=== PATIENT | female | born 1955 | race Caucasian/White ===

== ENCOUNTER 2018-08-05 12:35 | Inpatient (IN) | payer MEDICARE, OTHER ==
[~2018-08-05] VITALS: Ht 157.5 cm; Wt 72.2 kg
[~2018-08-05 12:35] MED LIST: ALLO100T PO; AMLO1CAP12 PO; AMOX1TAB11 PO; ASPI-482 PO; ATOR40TA59 PO; BENA20TA4 PO; CARV3.1210 PO; INSU100I13 SQ; INSU100I15 SQ; LEVO150T5 PO; LEVO25TA4 PO; LIRA0.6P2 SQ; LISI-130 PO; METF500T16 PO; METO25TA4 PO; MULT1TAB52 PO; PRAM0.255 PO; SODI650T PO; SPIR50TA4 PO; TORS20TA2 PO
[2018-08-05] MEDS ORDERED: LEVO200T5 PO (13:17)
[2018-08-05] MEDS ORDERED: AMLO1CAP10 PO (13:17)
[2018-08-05] MEDS ORDERED: CIPR250T30 PO (13:17)
[2018-08-05] MEDS ORDERED: METO25TA4 PO (13:17)
[2018-08-05] MEDS ORDERED: METF500T16 PO (13:17)
[2018-08-05] MEDS ORDERED: LIDO700A39 TP (13:17)
[2018-08-05] MEDS ORDERED: PREG150C PO (13:17)
[2018-08-05] MEDS ORDERED: SALI44.32 MM (13:17)
[2018-08-05] MEDS ORDERED: SULF1TAB24 PO (13:17)
[2018-08-05] MEDS ORDERED: METO5TAB4 PO (13:17)
[2018-08-05] MEDS ORDERED: INSU200I4 SQ (13:17)
[2018-08-05] MEDS ORDERED: LISI-130 PO (13:17)
[2018-08-05] MEDS ORDERED: LEVO25TA4 PO (13:17)
--- NOTE | 2018-08-05 13:26 | NUR ---
Wound care: Patient sent from the wound clinic to hospital today for admission. Patient seen in the clinic today. Due to X-ray results, assessment of wound, TCOM and ASAF results, patient requiring admission for further assessment. In the clinic the wound was cleansed, assessed, measured, and pictured. Dr. Muhammad assessed patient and wound. Orders for Iodoflex to wound bed, cover with ABD, and kerlix. Dressing applied and patient tolerated well. Patient assisted to ER via wheelchair. Dr. Muhammad spoke with Dr. Pino and warehouse guard for admission. Wound care will follow up with patient for POC regarding wound. Patient to have vascular and ID consult and further testing. Dressing change instructions will be left in room and photo will be placed in chart by wound care team. Wound care will see patient on floor.
[2018-08-05] MEDS ORDERED: PIP/TAZO PER PHARMACY MC PRN (13:45)
--- NOTE | 2018-08-05 13:49 | PDOC1 ---
History and Physical Date of Admission Date of Admission 08/05/18 Identification/Chief Complaint Chief Complaint right 1st toe ulcer Source Source: Patient History of Present Illness History of Present Illness She got up to go to the bathroom a few nights ago and noticed blood on the floor and noticed it was coming from her right first toenail, she had an appt with med in the office 08/03 and had a partially avulsed toenail with foulsmelling purulent drainage coming from under it. She was started on antibiotics, placed non weight bearing and sent for an Xray and wound care consult. The Xray revealed a tuft fracture and showed a vascular calcification of her anterior tibial artery but she has a strong palpable pulse. She is diabetic with peripheral neuropathy. She has been wearing crocs recently without socks. She denies any trauma to her foot. Her blood sugars have been well controlled. She has previously had a MA, CABG and CKD Past Medical History Cardiovascular: CAD, CHF, HTN Pulmonary: No pertinent hx GI: No pertinent hx Heme/Onc: No pertinent hx Hepatobiliary: No pertinent hx Psych: No pertinent hx Rheumatologic: No pertinent hx Infectious disease: No pertinent hx Renal/: Chronic renal insuff Endocrine: Diabetes, Hypothyroidism Past Surgical History Past Surgical History: CABG, Other Family History Family History: Alcohol Abuse, Heart Disease, Kidney Disease Social History ALCOHOL: none Drugs: None Current Medications Current Medications Current Medications Medications (Trade) Dose Ordered Sig/Michelle Start Time Stop Time Status Last Admin Dose Admin Aspirin (Ecotrin) 81 mg DAILY 08/06/18 09:00 UNV Atorvastatin Calcium (Lipitor) 40 mg HS 08/05/18 21:00 UNV Carvedilol (Coreg) 3.125 mg BID 08/05/18 21:00 UNV Lisinopril (Prinivil) 40 mg DAILY 08/06/18 09:00 UNV Metoprolol Tartrate (Lopressor) 12.5 mg BID 08/05/18 21:00 UNV Non-Formulary Medication (Amlodipine Besylate/ Benazepril (Amlodipine-Benazepril 5-20 Mg)) 1 cap DAILY 08/06/18 09:00 UNV Non-Formulary Medication (Insulin Degludec (Tresiba Flextouch U-200)) 20 unit DAILY 08/06/18 09:00 UNV Non-Formulary Medication (Levothyroxine Sodium ) 200 mcg DAILYAC 08/06/18 07:30 UNV Non-Formulary Medication (Liraglutide (Victoza 3-Yaniv)) 1.8 mg DAILY 08/06/18 09:00 UNV Non-Formulary Medication (Metolazone ) 5 mg DAILY 08/06/18 09:00 UNV Non-Formulary Medication (Multivitamin (Multivitamins)) 1 tab DAILY 08/06/18 09:00 UNV Non-Formulary Medication (Pramipexole Di-Hcl (Mirapex)) 1 tab DAILY 08/06/18 09:00 UNV Non-Formulary Medication (Pregabalin (Lyrica)) 150 mg BID 08/05/18 21:00 UNV Non-Formulary Medication (Saliva Stimulant Agents Comb.2 (Biotene Oralbalance)) 44.3 ml BID 08/05/18 21:00 UNV Sodium Bicarbonate (Sodium Bicarbonate) 650 mg TID 08/05/18 14:00 UNV Allergies Allergies Allergies Coded Allergies Type Severity Reaction Last Updated Verified acetaminophen Allergy Intermediate 07/29/18 Yes propoxyphene Allergy Intermediate 07/29/18 Yes ROS Review of System CONSTITUTIONAL: No fever or chills EYES: No recent changes SKIN: No rash or itching CARDIOVASCULAR: No chest pain, syncope, palpitations, or edema RESPIRATORY: No SOB or cough GASTROINTESTINAL: No nausea, vomiting or abdominal pain NEUROLOGICAL: No headaches or weakness ENDOCRINE: No cold or heat intolerance GENITOURINARY: No urgency or frequency of urination MUSCULOSKELETAL: No back pain or joint pain LYMPHATICS: No enlarged lymph nodes PSYCHIATRIC: No anxiety or depression Physical Exam Physical Exam GEN.: No apparent distress. Alert and oriented. HEENT: Head is normocephalic, atraumatic NECK: Supple. LUNGS: Clear to auscultation. HEART: RRR, S1, S2 present. Peripheral pulses intact ABDOMEN: Soft, nontender. Positive bowel sounds. EXTREMITIES: Without any cyanosis, right foot dressed but 1st toenail partially avulsed, erythema and edema of soft tissue present. NEUROLOGIC: Normal speech, normal tone, loss of sensation of feet PSYCHIATRIC: Normal affect, normal mood. SKIN: No other ulcerations VTE Prophylaxis Ordered VTE Prophylaxis Devices: Yes VTE Pharmacological Prophylaxi: No Assessment/Plan Assessment/Plan osteomyelitis of right 1st toe, exposed bone PAD CAD, s/p CABG CKD Admitted for IV antibiotics, ID and vascular and wound care consults Nicolás HAMM MD Aug 05, 2018 13:49
[2018-08-05 14:09] LABS: BASO # 0.1 x10^3/uL (0.0-0.2); BASO % 1 % (0-3); EOS # 0.2 x10^3/uL (0.0-0.7); EOS % 3 % (0-3); HEMATOCRIT 32.1 % (36.0-47.0); HEMOGLOBIN 10.5 g/dL (12.0-15.5); LYMPH # 1.1 x10^3/uL (1.0-4.8); LYMPH % 17 % (24-48); MEAN CORPUSCULAR HEMOGLOBIN 26 pg (25-35); MEAN CORPUSCULAR HGB CONC 33 g/dL (31-37); MEAN CORPUSCULAR VOLUME 79 fL (79-100); MONO # 0.5 x10^3/uL (0.0-1.1); MONO % 8 % (0-9); NEUT # 4.6 x10^3uL (1.8-7.7); NEUT % 72 % (31-73); PLATELET COUNT 296 x10^3/uL (140-400); RED BLOOD COUNT 4.05 x10^6/uL (3.50-5.40); RED CELL DISTRIBUTION WIDTH 14.7 % (11.5-14.5); WHITE BLOOD COUNT 6.4 x10^3/uL (4.0-11.0)
[2018-08-05 14:25] LABS: GFR 25.2; POTASSIUM 4.7 mmol/L (3.5-5.1)
[2018-08-05] MEDS: PRAMIPEXOLE 0.25 MG TABLET. PO SCH (14:28)
[2018-08-05] MEDS: ASPIRIN ENTERIC COATED 81 MG TABLET.DR. PO SCH (14:28)
[2018-08-05] MEDS: MULTIVITAMIN with MINERAL TABLET. PO SCH (14:29)
[2018-08-05] MEDS: LEVOTHYROXINE 25 MCG TABLET. PO SCH (14:29)
[2018-08-05] MEDS: LEVOTHYROXINE 100 MCG TABLET PO SCH (14:29)
[2018-08-05] MEDS: amLODIPine BESYLATE 5 MG TABLET PO SCH (14:29)
--- NOTE | 2018-08-05 14:41 | PDOC ---
Provider Note Provider Note Vascular Surgery Consult dictated 63 year old female with left leg peripheral artery disease and left 1st toe gangrene, exposed bone and cellulitis. Plan left leg angiogram with IR. Nephrology consulted for pre-hydration in prep for angiogram. Will need left 1st toe amputation (scheduled on friday). ID consulted for antibiotics. CARMEN WILL MD Aug 05, 2018 14:41
[2018-08-05 15:00] VITALS: BP 175/63
[2018-08-05] MEDS ORDERED: metOLazone 2.5 MG TABLET PO SCH (15:00)
[2018-08-05] MEDS ORDERED: LISINOPRIL 20 MG TABLET PO SCH (15:00)
[2018-08-05] MEDS ORDERED: INSULIN GLARGINE 300 UNITS/3 ML INSULN.PEN. SQ SCH (15:00)
[2018-08-05] MEDS: IV NORMAL SALINE 1000ML BAG 1,000 ML IV SCH (15:01)
[2018-08-05] MEDS: SODIUM BICARBONATE 650 MG TABLET. PO SCH ×2 (15:01→20:52)
[2018-08-05] MEDS: PIPERACILLIN/TAZOBACTAM 3.375 GM in IV NORMAL SALINE 50ML 50 ML IV SCH ×2 (15:01→17:57)
[2018-08-05 15:36] LABS: PROTHROMBIN TIME PATIENT 13.9 SEC (11.7-14.0)
--- NOTE | 2018-08-05 16:48 | RAD ---
Bilateral lower extremity arterial duplex 08/05/2018 INDICATION: Peripheral arterial disease. Hypertension and diabetes mellitus. COMPARISON: None available TECHNIQUE: Sonographic evaluation of left lower extremity arterial system was performed utilizing grayscale, color Doppler and spectral waveform analysis. FINDINGS: Calcified atheromatous plaque is identified throughout the left lower extremity. Systolic velocities are provided below in centimeters per second. Left: Common femoral artery: 145; biphasic Profunda artery: 59; biphasic Superficial femoral artery, proximal: 147; biphasic Superficial femoral artery, mid: 148; biphasic Superficial femoral artery, distal: 147; monophasic Popliteal artery: 303; monophasic Anterior tibial artery: 26; monophasic Posterior tibial artery, proximal: 38; monophasic Peroneal artery: 47; monophasic Dorsalis pedis artery: 59; monophasic Anterior tibial artery: 73; monophasic IMPRESSION: Moderate to advanced peripheral arterial disease with predominantly monophasic waveforms involving the left lower extremity. Focal increase in peak systolic velocity involving the popliteal artery may suggest moderate to high-grade proximal stenosis. Electronically signed by: Chasidy Eastman MD (08/05/2018 4:45 PM) [id number]
--- NOTE | 2018-08-05 16:59 | PDOC2 ---
CONSULT Date of Consult Date of Consult DATE: 08/05/18 TIME: 16:41 Reason for Consult Reason for Consult: Clearance for Aortagram Source Source: Chart review, Patient History of Present Illness Reason for Visit: Pt is a 63 yo CF with Dx of CKD stage 3 , states she got up to go to the bathroom a few nights ago and noticed blood on the floor and noticed it was coming from her right first toenail, she had an appt with PCP 08/03 and had a partially avulsed toenail with foul smelling purulent drainage . She was started on antibiotics, and sent for an Xray and wound care consult. The Xray revealed a tuft fracture and showed a vascular calcification of her anterior tibial artery . She is diabetic with peripheral neuropathy. She follows with Dr. Merida and was recently seen by [facility] . She denies any N/V/D. No Urinary complaints. Denies NSAID use Past Medical History Cardiovascular: CAD, CHF, HTN Pulmonary: No pertinent hx GI: No pertinent hx Heme/Onc: No pertinent hx Hepatobiliary: No pertinent hx Psych: No pertinent hx Rheumatologic: No pertinent hx Infectious disease: No pertinent hx Renal/: Chronic renal insuff Endocrine: Diabetes, Hypothyroidism Past Surgical History Past Surgical History: CABG, Other Family History Family History: Alcohol Abuse, Heart Disease, Kidney Disease Social History ALCOHOL: none Drugs: None Current Medications Current Medications Current Medications Aspirin (Ecotrin) 81 mg DAILY PO ; Start 08/05/18 at 15:00 Atorvastatin Calcium (Lipitor) 40 mg HS PO ; Start 08/05/18 at 21:00 Carvedilol (Coreg) 3.125 mg BIDWMEALS PO ; Start 08/05/18 at 17:00; Status UNV Lisinopril (Prinivil) 40 mg DAILY PO ; Start 08/05/18 at 15:00 Metoprolol Tartrate (Lopressor) 12.5 mg BID PO ; Start 08/05/18 at 21:00 Sodium Bicarbonate (Sodium Bicarbonate) 650 mg TID PO Last administered on 08/05at 15:01; Admin Dose 650 MG; Start 08/05/18 at 15:00 Non-Formulary Medication (Amlodipine Besylate/ Benazepril (Amlodipine- Benazepril 5-20 Mg)) 1 cap DAILY PO ; Start 08/06/18 at 09:00; Status UNV Insulin Glargine (Lantus) 20 units DAILY SQ ; Start 08/05/18 at 15:00; Stop 02/13 at 15:00; Status DC Levothyroxine Sodium (Synthroid) 25 mcg DAILY06 PO ; Start 08/05/18 at 15:00 Levothyroxine Sodium (Synthroid) 200 mcg DAILY06 PO ; Start 08/05/18 at 15:00 Non-Formulary Medication (Liraglutide (Victoza 3-Yanvi)) 1.8 mg DAILY SQ ; Start 08/06/18 at 09:00; Status UNV Metolazone (Zaroxolyn) 5 mg DAILY PO ; Start 08/05/18 at 15:00 Multivitamins (Thera M Plus) 1 tab DAILY PO ; Start 08/05/18 at 15:00 Pramipexole Dihydrochloride (miraPEX) 0.25 mg DAILY PO ; Start 08/05/18 at 15:00 Pregabalin (Lyrica) 150 mg BID PO ; Start 08/05/18 at 21:00 Saliva Substitute (Biotene Moisturizing Mouth) 1 spray BID PO ; Start 08/05/18 at 21:00 Piperacillin Sod/ Tazobactam Sod (Zosyn Per Pharmacy) 1 each PRN DAILY PRN MC SEE COMMENTS; Start 08/05/18 at 13:45 Piperacillin Sod/ Tazobactam Sod 3.375 gm/Sodium Chloride 50 ml @ 100 mls/hr Q6HRS IV Last administered on 08/05/18at 15:01; Admin Dose 100 MLS/HR; Start 02/13 at 14:30 Amlodipine Besylate (Norvasc) 5 mg DAILY PO ; Start 08/05/18 at 15:00 Insulin Glargine (Lantus) 20 units HS SQ ; Start 08/05/18 at 21:00 Sodium Chloride 1,000 ml @ 75 mls/hr [id number] IV Last administered on at 15:01; Admin Dose 75 MLS/HR; Start 08/05/18 at 15:00 Active Scripts Active Reported Cipro (Ciprofloxacin Hcl) 250 Mg Tablet 250 Mg PO BID 7 Days Bactrim Ds Tablet (Sulfamethoxazole/Trimethoprim) 1 Each Tablet 1 Each PO BID Lidocaine 1 Each Adh..patch 1 Each TP DAILY Levothyroxine Sodium 25 Mcg Tablet 25 Mcg PO DAILYAC Levothyroxine Sodium 200 Mcg Tablet 200 Mcg PO DAILYAC Metolazone 5 Mg Tablet 5 Mg PO DAILY Biotene Oralbalance (Saliva Stimulant Agents Comb.2) 44.3 Ml Liquid 44.3 Ml MM BID Tresiba Flextouch U-200 (Insulin Degludec) 200 Unit/1 Ml Insuln.pen 20 Unit SQ DAILY Metoprolol Tartrate 25 Mg Tablet 12.5 Mg PO BID Lisinopril 40 Mg Tablet 40 Mg PO DAILY Metformin Hcl 500 Mg Tablet 500 Mg PO DAILYWBKFT Lyrica (Pregabalin) 150 Mg Capsule 150 Mg PO BID 30 Days Amlodipine-Benazepril 5-20 Mg (Amlodipine Besylate/Benazepril) 1 Each Capsule 1 Cap PO DAILY Sodium Bicarbonate 650 Mg Tablet 650 Mg PO TID Mirapex (Pramipexole Di-Hcl) 0.25 Mg Tablet 1 Tab PO DAILY Multivitamins (Multivitamin) 1 Each Tablet 1 Tab PO DAILY Victoza 3-Yaniv (Liraglutide) 0.6 Mg/0.1 Ml Pen.injctr 1.8 Mg SQ DAILY Carvedilol (Carvedilol) 3.125 Mg Tablet 1 Tab PO BID Aspir 81 (Aspirin) 81 Mg Tablet.dr 81 Mg PO Atorvastatin Calcium 40 Mg Tablet 40 Mg PO HS Allergies Allergies: Coded Allergies: acetaminophen (Verified Allergy, Intermediate, 07/29/18) propoxyphene (Verified Allergy, Intermediate, 07/29/18) ROS Review of System As per HPI Physical Exam Physical Exam GEN.: No apparent distress. HEENT: OM moist NECK: Supple. LUNGS: Clear to auscultation. HEART: RRR, S1, S2 present. ABDOMEN: Soft, nontender. EXTREMITIES: right foot dressed, erythema and edema of soft tissue present NEUROLOGIC: Grossly normal SKIN: No Rash - No Menjivar Vital Signs Vital Signs Date Time Temp Pulse Resp B/P (MAP) Pulse Ox O2 Delivery O2 Flow Rate FiO2 08/05/18 15:00 98.5 68 18 175/63 (100) 96 Room Air 98.5 Assessment & Plan CKD stage 3 - Stable renal function E-Lytes stable Discussed Risk of YESSY with patient Recommend IVF , Hold Diuretics, LE-I/ARB Lt Peripheral artery disease and left 1st toe gangrene Left exposed bone and cellulitis Vascular recommends left leg angiogram with IR Left 1st toe amputation scheduled on friday ID consulted for antibiotics. CAD s/p CABG Anemia- Hgb stable DM - On insulin Discussed A/P with Pt and RN Labs Labs Laboratory Tests Test 08/05/18 14:00 White Blood Count 6.4 x10^3/uL (4.0-11.0) Red Blood Count 4.05 x10^6/uL (3.50-5.40) Hemoglobin 10.5 g/dL (12.0-15.5) Hematocrit 32.1 % (36.0-47.0) Mean Corpuscular Volume 79 fL (79-100) Mean Corpuscular Hemoglobin 26 pg (25-35) Mean Corpuscular Hemoglobin Concent 33 g/dL (31-37) Red Cell Distribution Width 14.7 % (11.5-14.5) Platelet Count 296 x10^3/uL (140-400) Neutrophils (%) (Auto) 72 % (31-73) Lymphocytes (%) (Auto) 17 % (24-48) Monocytes (%) (Auto) 8 % (0-9) Eosinophils (%) (Auto) 3 % (0-3) Basophils (%) (Auto) 1 % (0-3) Neutrophils # (Auto) 4.6 x10^3uL (1.8-7.7) Lymphocytes # (Auto) 1.1 x10^3/uL (1.0-4.8) Monocytes # (Auto) 0.5 x10^3/uL (0.0-1.1) Eosinophils # (Auto) 0.2 x10^3/uL (0.0-0.7) Basophils # (Auto) 0.1 x10^3/uL (0.0-0.2) Erythrocyte Sedimentation Rate 50 (0-25) Prothrombin Time 13.9 SEC (11.7-14.0) Prothromb Time International Ratio 1.1 (0.8-1.1) Sodium Level 138 mmol/L (136-145) Potassium Level 4.7 mmol/L (3.5-5.1) Chloride Level 104 mmol/L (98-107) Carbon Dioxide Level 26 mmol/L (21-32) Anion Gap 8 (6-14) Blood Urea Nitrogen 27 mg/dL (7-20) Creatinine 2.0 mg/dL (0.6-1.0) Estimated GFR (Cockcroft-Gault) 25.2 Glucose Level 127 mg/dL (70-99) Calcium Level 9.0 mg/dL (8.5-10.1) Laboratory Tests Test 08/05/18 14:00 White Blood Count 6.4 x10^3/uL (4.0-11.0) Red Blood Count 4.05 x10^6/uL (3.50-5.40) Hemoglobin 10.5 g/dL (12.0-15.5) Hematocrit 32.1 % (36.0-47.0) Mean Corpuscular Volume 79 fL (79-100) Mean Corpuscular Hemoglobin 26 pg (25-35) Mean Corpuscular Hemoglobin Concent 33 g/dL (31-37) Red Cell Distribution Width 14.7 % (11.5-14.5) Platelet Count 296 x10^3/uL (140-400) Neutrophils (%) (Auto) 72 % (31-73) Lymphocytes (%) (Auto) 17 % (24-48) Monocytes (%) (Auto) 8 % (0-9) Eosinophils (%) (Auto) 3 % (0-3) Basophils (%) (Auto) 1 % (0-3) Neutrophils # (Auto) 4.6 x10^3uL (1.8-7.7) Lymphocytes # (Auto) 1.1 x10^3/uL (1.0-4.8) Monocytes # (Auto) 0.5 x10^3/uL (0.0-1.1) Eosinophils # (Auto) 0.2 x10^3/uL (0.0-0.7) Basophils # (Auto) 0.1 x10^3/uL (0.0-0.2) Erythrocyte Sedimentation Rate 50 (0-25) Prothrombin Time 13.9 SEC (11.7-14.0) Prothromb Time International Ratio 1.1 (0.8-1.1) Sodium Level 138 mmol/L (136-145) Potassium Level 4.7 mmol/L (3.5-5.1) Chloride Level 104 mmol/L (98-107) Carbon Dioxide Level 26 mmol/L (21-32) Anion Gap 8 (6-14) Blood Urea Nitrogen 27 mg/dL (7-20) Creatinine 2.0 mg/dL (0.6-1.0) Estimated GFR (Cockcroft-Gault) 25.2 Glucose Level 127 mg/dL (70-99) Calcium Level 9.0 mg/dL (8.5-10.1) Review All relevant outside records, renal labs, imaging studies, telemetry/EKG's were reviewed. DAVID BOWMAN MD Aug 05, 2018 16:59
[2018-08-05] MEDS ORDERED: CARVEDILOL 3.125 MG TABLET. PO SCH (17:00)
--- NOTE | 2018-08-05 17:08 | RAD ---
Clinical Indications: Peripheral arterial disease. Exam : Carotid Duplex with Grayscale Ultrasound and Spectral and Color Doppler Analysis: PQRS Compliance Statement - Stenosis calculations for CT, MR and conventional angiography are based upon measurement of the distal ICA diameter in accordance with the NASCET methodology. Stenosis calculations for carotid ultrasound studies are derived from validated velocity criteria which are known to correlate with the NASCET methodology. Comparison study: None available. Findings: The common, internal and external carotid arteries were examined by grayscale, color and spectral Doppler ultrasound. Moderate to severe atherosclerotic calcifications identified in the bilateral carotid bulbs and proximal internal carotid arteries. Flow in both vertebral arteries was antegrade and normal. The following are the velocities and ratios in the carotid arteries on both sides: RIGHT ICA PV: 129cm/sec RIGHT CCA PV: 93cm/sec RIGHT ICA ED: 35cm/sec RIGHT IC/CCPV: 1.3 RIGHT VERTEBRAL: antegrade flow RIGHT % STENOSIS: 50-69% LEFT ICA PV: 139cm/sec LEFT CCA PV: 83cm/sec LEFT ICA ED: 39cm/sec LEFT IC/CCPV: 1.5 LEFT VERTEBRAL: antegrade flow LEFT % STENOSIS: 50-69% <50% ICA Stenosis: PSV < 125cm/s (EDV < 40cm/s; SVR < 2.0) 50-69% ICA Stenosis: PSV < 125-229cm/s (EDV 40-99cm/s; SVR 2.0-3.9) >70% ICA Stenosis: PSV > 230cm/s (EDV >100cm/s; SVR >4.0) Impression: 1. 50-69% stenosis identified in the bilateral proximal internal carotid arteries. 2. Moderate to severe atherosclerotic calcifications identified in the bilateral carotid bulbs and proximal internal carotid arteries. Electronically signed by: Madhu Harden MD (08/05/2018 5:06 PM) [id number]
--- NOTE | 2018-08-05 17:20 | NUR ---
Spoke to DR. Paredes who requested patient have fluids running at 75ml/hr and that her lisinopril and metolazone be held for a couple of days. Patient already had a IV fluid order and I changed start dates on Metolazone and Lisinopril.
[2018-08-05] MEDS ORDERED: ACETAMINOPHEN 325 MG TABLET. PO PRN ×2 (18:30)
[2018-08-05 19:00] VITALS: BP 115/58
[2018-08-05] MEDS: ATORVASTATIN CALCIUM 40 MG TABLET. PO SCH (20:52)
[2018-08-05] MEDS: PREGABALIN 75 MG CAPSULE PO SCH (20:52)
[2018-08-05] MEDS: METOPROLOL TART IMMED RELEASE 25 MG TABLET. PO SCH (20:54)
[2018-08-05] MEDS: ACETAMINOPHEN 325 MG TABLET. PO PRN (20:57)
[2018-08-05] MEDS: INSULIN GLARGINE 300 UNITS/3 ML INSULN.PEN. SQ SCH (20:58)
[2018-08-05] MEDS: SALIVA STIMULANT AGENT 44ML SPRAY BOTTLE. PO SCH (21:01)
[2018-08-05 23:00] VITALS: BP 169/42
[2018-08-06] VITALS (12 sets, daily range): BP systolic 112–185; BP diastolic 41–76
[2018-08-06] MEDS: PIPERACILLIN/TAZOBACTAM 3.375 GM in IV NORMAL SALINE 50ML 50 ML IV SCH ×5 (00:27→23:42)
[2018-08-06 03:10] LABS: HEMOGLOBIN A1C 10.9 % (4.8-5.6)
--- NOTE | 2018-08-06 03:43 | CONS ---
DATE OF CONSULTATION: 08/05/2018 CHIEF COMPLAINT: Left first toe infected wound. HISTORY OF PRESENT ILLNESS: The patient is a 63-year-old female who little over a week ago somehow tripped and stubbed her left great toe while in the bathroom. She states the toe was becoming red and there has been swelling of her foot and ankle since this injury. [facility] visit today and the nailbed had lifted there and there is exposed bone in the wound along with extensive cellulitis. She was sent to the hospital and admitted by the medical physicians. She reports normally no pain in her feet. She does have significant neuropathy. She reports no significant pain now, but she does not have much feeling at baseline in her feet. She is able to ambulate independently and reports no pain or cramps in her calves during ambulation. She has had no fevers or chills. She does have a history of diabetes mellitus. She has a history of coronary artery disease and has undergone a coronary artery bypass graft many years ago. She reports no chest pain. She does follow with Dr. Shukla, her raiser helper at [facility]. She reports no interventions performed on her legs in the past. REVIEW OF SYSTEMS: A 10-point review of systems was performed, which was otherwise negative besides what is mentioned in history of present illness. PAST MEDICAL HISTORY: Includes: 1. Coronary artery disease. 2. Congestive heart failure. 3. Hypertension. 4. Chronic renal insufficiency for which she follows with Dr. Merida and has never been on dialysis in the past. 5. Diabetes mellitus. 6. Hypothyroidism. PAST SURGICAL HISTORY: 1. Coronary artery bypass graft. 2. Gastric bypass for weight loss. SOCIAL HISTORY: The patient does not drink alcohol. Reports not smoking. FAMILY HISTORY: Significant for heart disease and kidney disease. PHYSICAL EXAMINATION: GENERAL: The patient is awake and alert. She is currently in no apparent distress. VITAL SIGNS: Stable. NECK: Supple with no carotid bruits. HEART: Regular rate and rhythm without murmurs. LUNGS: Have bilateral breath sounds to auscultation. ABDOMEN: Soft, nondistended, and nontender. She does have healed scars from her gastric bypass. EXTREMITIES: Her left lower extremity is warm. She does have [id number] swelling of her left lower leg and foot. There is erythema of her left first toe extending into the foot. She has open wound on her distal left first toe with raised nail bed and exposed bone. There is wet gangrenous tissue within the wound bed. There are no other areas of tissue breakdown. Her right lower extremity is warm. No edema in her right leg. There is no tissue breakdown in her right foot. VASCULAR: I do not palpate pulses in her right or left foot. She does have palpable femoral pulses. NEUROLOGIC: She is awake and alert, oriented x 3, moving all 4 extremities with normal strength. No gross neurologic deficits. LABORATORY DATA: In review of her old chart at [facility], she was noted to have arterial ASAF testing in 2018 with a left leg ASAF of 0.74 and a right leg ASAF of 0.91. IMPRESSION: 1. Left lower extremity peripheral arterial disease with left first toe gangrene and exposed bone. 2. Left foot cellulitis. 3. Chronic renal insufficiency. 4. Diabetes mellitus. PLAN: The patient has significant left leg peripheral arterial disease by history and nonpalpable pulses on examination. In 12/2017, her left leg ASAF was 0.7. She has developed gangrene of her left first toe with exposure of her bone after an injury to her foot. She has associated infection and cellulitis. I recommend evaluating her circulation with an arterial duplex scan followed by an angiogram of her left leg with possible intervention. She does have chronic renal insufficiency. Therefore, she will be hydrated prior to the angiogram and Nephrology will be consulted. I did discuss her case with Dr. Basurto with Interventional Radiology and hopefully will be able to proceed with the angiogram tomorrow. She will need amputation of her left first toe. Ideally, we will get her angiogram and revascularization done prior to the amputation; however, if her infections worsens, we may need to do amputation first. She will be started on IV antibiotics and Infectious Disease has been consulted. CARMEN WILL MD DR: YONY/breezy JOB#: [id number] / [id number]
[2018-08-06] MEDS: IV NORMAL SALINE 1000ML BAG 1,000 ML IV SCH ×2 (04:20→14:16)
[2018-08-06] MEDS: LEVOTHYROXINE 100 MCG TABLET PO SCH (06:00)
[2018-08-06] MEDS: LEVOTHYROXINE 25 MCG TABLET. PO SCH (06:00)
[2018-08-06 06:10] LABS: CALCIUM 8.6 mg/dL (8.5-10.1); CREATININE 2.1 mg/dL (0.6-1.0); GFR 23.8; POTASSIUM 4.3 mmol/L (3.5-5.1)
[2018-08-06 06:15] LABS: RED BLOOD COUNT 3.8 x10^6/uL (3.50-5.40); RED CELL DISTRIBUTION WIDTH 14.5 % (11.5-14.5); WHITE BLOOD COUNT 6.8 x10^3/uL (4.0-11.0)
[2018-08-06 06:17] LABS: CHOLESTEROL/HDL RATIO 3.8
[2018-08-06 06:39] LABS: PROTHROMBIN TIME PATIENT 14.5 SEC (11.7-14.0)
[2018-08-06] MEDS ORDERED: BENAZEPRIL PO SCH (09:00)
[2018-08-06] MEDS ORDERED: [UNRECOGNIZED DRUG - OTHER] PO SCH (09:00)
[2018-08-06] MEDS: amLODIPine BESYLATE 5 MG TABLET PO SCH (09:00)
[2018-08-06] MEDS: SALIVA STIMULANT AGENT 44ML SPRAY BOTTLE. PO SCH ×2 (09:00→17:13)
[2018-08-06] MEDS: MULTIVITAMIN with MINERAL TABLET. PO SCH (09:00)
[2018-08-06] MEDS: PREGABALIN 75 MG CAPSULE PO SCH ×2 (09:00→20:41)
[2018-08-06] MEDS: METOPROLOL TART IMMED RELEASE 25 MG TABLET. PO SCH ×2 (09:00→20:43)
[2018-08-06] MEDS: PRAMIPEXOLE 0.25 MG TABLET. PO SCH (09:00)
[2018-08-06] MEDS: ASPIRIN ENTERIC COATED 81 MG TABLET.DR. PO SCH (09:00)
[2018-08-06] MEDS ORDERED: AMLODIPINE BESYLATE PO SCH (09:00)
[2018-08-06] MEDS ORDERED: NON FORMULARY ITEM (Liraglutide (Victoza 3-Pak) 1.8 MG) SQ SCH (09:00)
[2018-08-06] MEDS: SODIUM BICARBONATE 650 MG TABLET. PO SCH ×3 (09:00→20:41)
--- NOTE | 2018-08-06 09:56 | PDOC ---
Provider Note Provider Note S: We are evaluating patient for left great toe wound she has had for approx 2 weeks. She does not have associated pain, has noticed minimal drainage. Has associated redness and warmth extending up foot. She was seen by Dr. Griggs yesterday who recommended arteriogram today and toe amputation tomorrow. Pt resting in bed comfortably. Without complaints today. She was receiving pre- angiography fluids today. Patient has history of CAD, HTN, CHF, CKD not on dialysis, DM and hypothyroidism. History of CABG O: VSS, afebrile General: Alert, oriented and in no apparent distress. Lungs: Respirations non-labored Cardio: RRR, palpable radial pulses GI: Abdomen soft, nontender Extremities: Left foot is warm, mild edema lower leg and foot. There is necrotic wound to distal tip of left great toe with exposed bone. There is wet gangrenous tissue in wound bed and it is malodorous. Erythema extending to first MTP joint. No other foot wound noted. I cannot appreciate palpable pedal pulses.Right foot warm, no skin breakdown or erythema. Cannot appreciate palpable pedal pulses. Palpable femoral pulses bilaterally. Neuro: No gross deficits, full motor function and sensation bilateral feet. ROM intact throughout Upper and lower extremities Diagnostics: Most recent ASAF in 2018 at [facility] - left leg 0.74, right leg 0.91 Arterial duplex: Moderate to advanced disease with predominantly monophasic waveforms. Focal increase in PSV involving the popliteal artery may suggest moderate to high-grade proximal stenosis. Carotid Duplex: Mild disease, around 50% bilaterally Assessment/Plan: 1. Left lower extremity peripheral arterial disease with gangrenous left toe wound with exposed bone and cellulitis - Pt is going for arteriogram with possible intervention today. We will plan for left great toe amputation tomorrow. The details of the procedures were discussed with the patient including risks/benefits, she exhibited understanding and agreed to proceed. All her questions were answered to satisfaction. 2. Carotid stenosis - Mild disease, around 50% bilaterally. We will follow outpatient. 3. DM - per primary 5. Chronic renal insufficiency - per nephrology YOMAIRA MARROQUIN Aug 06, 2018 09:56
--- NOTE | 2018-08-06 10:02 | PDOC ---
Infectious Disease Note Vital Sign Vital Signs Vital Signs Date Time Temp Pulse Resp B/P (MAP) Pulse Ox O2 Delivery O2 Flow Rate FiO2 08/06/18 07:00 98.5 56 20 170/61 (97) 90 Room Air 98.5 Labs Lab Laboratory Tests Test 08/05/18 14:00 08/05/18 16:44 08/05/18 20:49 08/06/18 05:09 White Blood Count 6.4 x10^3/uL (4.0-11.0) 6.8 x10^3/uL (4.0-11.0) Red Blood Count 4.05 x10^6/uL (3.50-5.40) 3.80 x10^6/uL (3.50-5.40) Hemoglobin 10.5 g/dL (12.0-15.5) 10.0 g/dL (12.0-15.5) Hematocrit 32.1 % (36.0-47.0) 30.0 % (36.0-47.0) Mean Corpuscular Volume 79 fL (79-100) 79 fL (79-100) Mean Corpuscular Hemoglobin 26 pg (25-35) 26 pg (25-35) Mean Corpuscular Hemoglobin Concent 33 g/dL (31-37) 33 g/dL (31-37) Red Cell Distribution Width 14.7 % (11.5-14.5) 14.5 % (11.5-14.5) Platelet Count 296 x10^3/uL (140-400) 285 x10^3/uL (140-400) Neutrophils (%) (Auto) 72 % (31-73) Lymphocytes (%) (Auto) 17 % (24-48) Monocytes (%) (Auto) 8 % (0-9) Eosinophils (%) (Auto) 3 % (0-3) Basophils (%) (Auto) 1 % (0-3) Neutrophils # (Auto) 4.6 x10^3uL (1.8-7.7) Lymphocytes # (Auto) 1.1 x10^3/uL (1.0-4.8) Monocytes # (Auto) 0.5 x10^3/uL (0.0-1.1) Eosinophils # (Auto) 0.2 x10^3/uL (0.0-0.7) Basophils # (Auto) 0.1 x10^3/uL (0.0-0.2) Erythrocyte Sedimentation Rate 50 (0-25) Prothrombin Time 13.9 SEC (11.7-14.0) 14.5 SEC (11.7-14.0) Prothromb Time International Ratio 1.1 (0.8-1.1) 1.2 (0.8-1.1) Sodium Level 138 mmol/L (136-145) 143 mmol/L (136-145) Potassium Level 4.7 mmol/L (3.5-5.1) 4.3 mmol/L (3.5-5.1) Chloride Level 104 mmol/L (98-107) 108 mmol/L (98-107) Carbon Dioxide Level 26 mmol/L (21-32) 25 mmol/L (21-32) Anion Gap 8 (6-14) 10 (6-14) Blood Urea Nitrogen 27 mg/dL (7-20) 29 mg/dL (7-20) Creatinine 2.0 mg/dL (0.6-1.0) 2.1 mg/dL (0.6-1.0) Estimated GFR (Cockcroft-Gault) 25.2 23.8 Glucose Level 127 mg/dL (70-99) 67 mg/dL (70-99) Hemoglobin A1c 10.9 % (4.8-5.6) Calcium Level 9.0 mg/dL (8.5-10.1) 8.6 mg/dL (8.5-10.1) Glucose (Fingerstick) 250 mg/dL (70-99) 288 mg/dL (70-99) Triglycerides Level 76 mg/dL (0-150) Cholesterol Level 111 mg/dL (0-200) LDL Cholesterol, Calculated 67 mg/dL (0-100) VLDL Cholesterol, Calculated 15 mg/dL (0-40) Non-HDL Cholesterol Calculated 82 mg/dL (0-129) HDL Cholesterol 29 mg/dL (40-60) Cholesterol/HDL Ratio 3.8 Test 08/06/18 05:25 08/06/18 07:14 Glucose (Fingerstick) 72 mg/dL (70-99) 72 mg/dL (70-99) Objective Assessment Left big toe gangrene Left big toe and foot cellulitis PAD CAD Renal insufficiency DM HTN Plan Plan of Care zosyn angio will need I and D/amputation d/w Vascular surgery d/w family STEVE AGUILAR MD Aug 06, 2018 10:02
[2018-08-06] MEDS ORDERED: DEXTROSE 50% 25 GM / 50ML DISP.SYRIN. IV ONE ×2 (11:29→11:45)
--- NOTE | 2018-08-06 12:16 | PDOC ---
SUBJECTIVE ROS States feeling Hungry, still waiting for IR procedure OBJECTIVE Vital Signs Vital Signs Date Time Temp Pulse Resp B/P (MAP) Pulse Ox O2 Delivery O2 Flow Rate FiO2 08/06/18 11:00 98.7 50 20 182/59 (100) 94 Room Air 98.7 I & 0 Intake and Output 08/06/18 07:00 Intake Total 400 ml Output Total 0 ml Balance 400 ml Intake Oral 300 ml IV Total 100 ml Output Urine Total 0 ml # Voids 1 PHYSICAL EXAM Physical Exam GEN.: No apparent distress. HEENT: OM moist NECK: Supple. LUNGS: Clear to auscultation. HEART: RRR, S1, S2 present. ABDOMEN: Soft, nontender. EXTREMITIES: right foot dressed, erythema and edema of soft tissue present NEUROLOGIC: Grossly normal SKIN: No Rash - No Menjivar DIAGNOSIS/ASSESSMENT Assessment & Plan CKD stage 3 - Stable renal function E-Lytes stable Discussed Risk of YESSY at great length with patient and family at bedside Continue IVF(Pre Procedure) , during and at lest 12 hrs Post procedure , Hold Diuretics, LE-I/ARB Lt Peripheral artery disease and left 1st toe gangrene Left exposed bone and cellulitis Vascular recommends left leg angiogram with IR Left 1st toe amputation scheduled on friday ID consulted for antibiotics. CAD s/p CABG Anemia- Hgb stable DM - On insulin Discussed A/P with Pt, family at bedside and RN COMMENT/RELEVANT DATA Meds Current Medications Medications (Trade) Dose Ordered Sig/Michelle Start Time Stop Time Status Last Admin Dose Admin Acetaminophen (Tylenol) 325 mg PRN Q6HRS PRN 08/05/18 18:30 Amlodipine Besylate (Norvasc) 5 mg DAILY 08/05/18 15:00 Aspirin (Ecotrin) 81 mg DAILY 08/05/18 15:00 Atorvastatin Calcium (Lipitor) 40 mg HS 08/05/18 21:00 08/05/18 20:52 40 MG Carvedilol (Coreg) 3.125 mg BIDWMEALS 08/05/18 17:00 UNV Cefazolin Sodium 1 gm/Sodium Chloride 250 ml @ 250 mls/hr 1X ONCE 08/07/18 06:00 08/07/18 06:59 Dextrose (Dextrose 50%-Water Syringe) 25 gm 1X ONCE 08/06/18 11:45 08/06/18 11:46 DC 08/06/18 11:40 25 GM Fentanyl Citrate (Fentanyl 2ml Vial) 50 mcg PRN Q5MIN PRN 08/07/18 07:00 08/08/18 06:59 Hydromorphone HCl (Dilaudid) 0.5 mg PRN Q10MIN PRN 08/07/18 07:00 08/08/18 06:59 Insulin Glargine (Lantus) 20 units HS 08/05/18 21:00 08/05/18 20:58 20 UNITS Levothyroxine Sodium (Synthroid) 200 mcg DAILY06 08/05/18 15:00 Lidocaine HCl (Xylocaine-Mpf 1% 2ml Vial) 2 ml PRN 1X PRN 08/07/18 07:00 08/08/18 06:59 Lisinopril (Prinivil) 40 mg DAILY 08/08/18 09:00 Metolazone (Zaroxolyn) 5 mg DAILY 08/08/18 09:00 Metoprolol Tartrate (Lopressor) 12.5 mg BID 08/05/18 21:00 08/05/18 20:54 12.5 MG Morphine Sulfate (Morphine Sulfate) 1 mg PRN Q10MIN PRN 08/07/18 07:00 08/08/18 06:59 Multivitamins (Thera M Plus) 1 tab DAILY 08/05/18 15:00 Non-Formulary Medication (Amlodipine Besylate/ Benazepril (Amlodipine-Benazepril 5-20 Mg)) 1 cap DAILY 08/06/18 09:00 UNV Non-Formulary Medication (Liraglutide (Victoza 3-Yaniv)) 1.8 mg DAILY 08/06/18 09:00 UNV Piperacillin Sod/ Tazobactam Sod (Zosyn Per Pharmacy) 1 each PRN DAILY PRN 08/05/18 13:45 Piperacillin Sod/ Tazobactam Sod 3.375 gm/Sodium Chloride 50 ml @ 100 mls/hr Q6HRS 08/05/18 14:30 08/06/18 06:34 100 MLS/HR Pramipexole Dihydrochloride (miraPEX) 0.25 mg DAILY 08/05/18 15:00 Pregabalin (Lyrica) 150 mg BID 08/05/18 21:00 08/05/18 20:52 150 MG Prochlorperazine Edisylate (Compazine) 5 mg PACU PRN PRN 08/07/18 07:00 08/08/18 06:59 Ringer's Solution 1,000 ml @ 30 mls/hr Q24H 08/07/18 07:00 08/07/18 18:59 Saliva Substitute (Biotene Moisturizing Mouth) 1 spray BID 08/05/18 21:00 08/06/18 09:00 1 SPRAY Sodium Bicarbonate (Sodium Bicarbonate) 650 mg TID 08/05/18 15:00 08/05/18 20:52 650 MG Sodium Chloride 1,000 ml @ 75 mls/hr [id number] 08/05/18 15:00 08/05/18 15:01 75 MLS/HR Lab Laboratory Tests Test 08/05/18 14:00 08/05/18 16:44 08/05/18 20:49 08/06/18 05:09 White Blood Count 6.4 x10^3/uL (4.0-11.0) 6.8 x10^3/uL (4.0-11.0) Red Blood Count 4.05 x10^6/uL (3.50-5.40) 3.80 x10^6/uL (3.50-5.40) Hemoglobin 10.5 g/dL (12.0-15.5) 10.0 g/dL (12.0-15.5) Hematocrit 32.1 % (36.0-47.0) 30.0 % (36.0-47.0) Mean Corpuscular Volume 79 fL (79-100) 79 fL (79-100) Mean Corpuscular Hemoglobin 26 pg (25-35) 26 pg (25-35) Mean Corpuscular Hemoglobin Concent 33 g/dL (31-37) 33 g/dL (31-37) Red Cell Distribution Width 14.7 % (11.5-14.5) 14.5 % (11.5-14.5) Platelet Count 296 x10^3/uL (140-400) 285 x10^3/uL (140-400) Neutrophils (%) (Auto) 72 % (31-73) Lymphocytes (%) (Auto) 17 % (24-48) Monocytes (%) (Auto) 8 % (0-9) Eosinophils (%) (Auto) 3 % (0-3) Basophils (%) (Auto) 1 % (0-3) Neutrophils # (Auto) 4.6 x10^3uL (1.8-7.7) Lymphocytes # (Auto) 1.1 x10^3/uL (1.0-4.8) Monocytes # (Auto) 0.5 x10^3/uL (0.0-1.1) Eosinophils # (Auto) 0.2 x10^3/uL (0.0-0.7) Basophils # (Auto) 0.1 x10^3/uL (0.0-0.2) Erythrocyte Sedimentation Rate 50 (0-25) Prothrombin Time 13.9 SEC (11.7-14.0) 14.5 SEC (11.7-14.0) Prothromb Time International Ratio 1.1 (0.8-1.1) 1.2 (0.8-1.1) Sodium Level 138 mmol/L (136-145) 143 mmol/L (136-145) Potassium Level 4.7 mmol/L (3.5-5.1) 4.3 mmol/L (3.5-5.1) Chloride Level 104 mmol/L (98-107) 108 mmol/L (98-107) Carbon Dioxide Level 26 mmol/L (21-32) 25 mmol/L (21-32) Anion Gap 8 (6-14) 10 (6-14) Blood Urea Nitrogen 27 mg/dL (7-20) 29 mg/dL (7-20) Creatinine 2.0 mg/dL (0.6-1.0) 2.1 mg/dL (0.6-1.0) Estimated GFR (Cockcroft-Gault) 25.2 23.8 Glucose Level 127 mg/dL (70-99) 67 mg/dL (70-99) Hemoglobin A1c 10.9 % (4.8-5.6) Calcium Level 9.0 mg/dL (8.5-10.1) 8.6 mg/dL (8.5-10.1) Glucose (Fingerstick) 250 mg/dL (70-99) 288 mg/dL (70-99) Triglycerides Level 76 mg/dL (0-150) Cholesterol Level 111 mg/dL (0-200) LDL Cholesterol, Calculated 67 mg/dL (0-100) VLDL Cholesterol, Calculated 15 mg/dL (0-40) Non-HDL Cholesterol Calculated 82 mg/dL (0-129) HDL Cholesterol 29 mg/dL (40-60) Cholesterol/HDL Ratio 3.8 Test 08/06/18 05:25 08/06/18 07:14 08/06/18 11:26 08/06/18 11:56 Glucose (Fingerstick) 72 mg/dL (70-99) 72 mg/dL (70-99) 60 mg/dL (70-99) 100 mg/dL (70-99) Results All relevant outside records, renal labs, imaging studies, telemetry/EKG's were reviewed. DAVID BOWMAN MD Aug 06, 2018 12:16
[2018-08-06] MEDS ORDERED: IODIXANOL 320 MG/ML 100 ML VIAL. ONE (12:54)
[2018-08-06] MEDS ORDERED: LIDOCAINE WITH 8.4% SOD BICARB 3 ML DISP.SYRIN. ONE (12:55)
[2018-08-06] MEDS ORDERED: HEPARIN for ARTERIAL LINE 1,500 ML ONE (12:55)
[2018-08-06] MEDS ORDERED: HEPARIN for IV BOLUS 10,000 UNIT/10 ML VIAL. ONE (13:10)
[2018-08-06] MEDS ORDERED: MIDAZOLAM HCL/PF 2 MG/2 ML VIAL. ONE (13:10)
[2018-08-06] MEDS ORDERED: fentaNYL PF VIAL 100 MCG/2 ML VIAL ONE (13:10)
[2018-08-06] MEDS ORDERED: LIDOCAINE WITH 8.4% SOD BICARB 3 ML DISP.SYRIN. IJ ONE (13:15)
[2018-08-06] MEDS ORDERED: fentaNYL PF VIAL 100 MCG/2 ML VIAL IV ONE (13:15)
[2018-08-06] MEDS ORDERED: IODIXANOL 320 MG/ML 100 ML VIAL. IART ONE (13:15)
[2018-08-06] MEDS ORDERED: MIDAZOLAM HCL/PF 2 MG/2 ML VIAL. IV ONE (13:15)
[2018-08-06] MEDS ORDERED: HEPARIN for IV BOLUS 10,000 UNIT/10 ML VIAL. IV ONE (14:00)
[2018-08-06] MEDS ORDERED: hydrALAZINE 20 MG/ML VIAL. ONE (14:27)
[2018-08-06] MEDS ORDERED: hydrALAZINE 20 MG/ML VIAL. IVP ONE (14:30)
--- NOTE | 2018-08-06 17:35 | PDOC ---
PROGRESS NOTES Subjective Sugar low overnight, high today, pain controlled, foot swelling and erythema improved but she is starting to demarcate just above MTP Objective Afebrile General: NAD Heart: RRR Lungs: CTA Abd: non tender, non distended Ext: dressing removed and toe viewed with nurse, no drainage, erythema improved , demarcation line developing above 1st MTP Vital Signs Vital Signs Date Time Temp Pulse Resp B/P (MAP) Pulse Ox O2 Delivery O2 Flow Rate FiO2 08/06/18 16:30 73 20 146/51 (82) 95 Room Air 08/06/18 15:16 98.7 98.7 08/06/18 14:59 2.0 I & O Intake and Output 08/06/18 07:00 Intake Total 400 ml Output Total 0 ml Balance 400 ml Intake Oral 300 ml IV Total 100 ml Output Urine Total 0 ml # Voids 1 Assessment and Plan osteomyelitis of right 1st toe, exposed bone, gangrene demarcation developing - continue IV abx PAD - arteriogram Friday CAD, s/p CABG CKD - monitor Type 2 diabetes- on tank terminal gauger insulin, SSI added Nicolás HAMM MD Aug 06, 2018 17:35
[2018-08-06] MEDS ORDERED: DEXTROSE 50% 25 GM / 50ML DISP.SYRIN. IV PRN (17:45)
[2018-08-06] MEDS: INSULIN LISPRO 300 UNITS/3 ML INSULN.PEN. SQ SCH (18:00)
[2018-08-06] MEDS: INSULIN GLARGINE 300 UNITS/3 ML INSULN.PEN. SQ SCH (20:39)
[2018-08-06] MEDS: ATORVASTATIN CALCIUM 40 MG TABLET. PO SCH (20:41)
[2018-08-06] MEDS: ACETAMINOPHEN 325 MG TABLET. PO PRN (20:45)
--- NOTE | 2018-08-07 02:38 | CONS ---
DATE OF CONSULTATION: 08/06/2018 REQUESTING PHYSICIAN: Dr. Pino. REASON FOR CONSULTATION: Left foot and toe infection and gangrene. HISTORY OF PRESENT ILLNESS: This is a 63-year-old female with history of diabetes, hypertension, diabetic neuropathy, who noticed redness, swelling of the left big toe and black gangrenous changes. The patient does not remember having any trauma. She does not have much feeling. Denies checking her feet every day. Denies any fever, nausea, vomiting, diarrhea or any other complaints. PAST MEDICAL HISTORY: In fact, [facility] and she was [facility] there. PAST MEDICAL HISTORY: Positive for coronary artery disease, congestive heart failure, hypertension, diabetes, hypothyroidism, renal insufficiency. SOCIAL HISTORY: Negative for smoking, alcohol, illicit drug use. ALLERGIES: LISTED ALLERGIC TO PROPOXYPHENE. CURRENT MEDICATIONS: Reviewed. The patient is on Zosyn. REVIEW OF SYSTEMS: As per HPI, all other systems reviewed are negative. PHYSICAL EXAMINATION: GENERAL: Alert, oriented female, not in distress. VITAL SIGNS: Stable, afebrile. HEENT: NAD. NECK: Supple, no JVP, no lymphadenopathy. LUNGS: Clear. HEART: S1, S2 regular. ABDOMEN: Benign. EXTREMITIES: No edema, cyanosis. SKIN: Unremarkable except left lower extremity dorsalis pedis is not palpable. The patient does have a left big toe with distal end that is necrotic with exposed bone and proximal of toe is cellulitic including the cellulitis that goes into the foot, although according to the patient is already looking better the foot and the toe redness. NEUROLOGIC: The patient is neurologically intact. LABORATORY DATA: White count is normal. Sed rate is 50, BUN and creatinine is 29 and 2.1. She had an arterial duplex done, which showed moderate to advanced peripheral arterial disease. Angiography is pending. Carotid Doppler study was noted. IMPRESSION: 1. 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 2. Left big toe and foot cellulitis. 3. Peripheral arterial disease. 4. Coronary artery disease. 5. Diabetes with neuropathy. 6. Hypertension. 7. Hypothyroidism. 8. Renal insufficiency. RECOMMENDATIONS: Recommend continue Zosyn, supportive care, leg elevation and angiogram. The patient is going to need partial amputation, which has been discussed with the Vascular Surgery and discussed with the patient's family; I believe it is her son at the bedside. Thank you very much, Dr. Pino, for giving me opportunity to participate in this patient's care. STEVE AGUILAR MD DR: LUC/breezy JOB#: [id number] / [id number]
[2018-08-07 03:00] VITALS: BP 137/56
[2018-08-07 04:36] LABS: CALCIUM 8.3 mg/dL (8.5-10.1); CREATININE 2.4 mg/dL (0.6-1.0); GFR 20.4; POTASSIUM 4.4 mmol/L (3.5-5.1)
[2018-08-07] MEDS: LEVOTHYROXINE 25 MCG TABLET. PO SCH (06:16)
[2018-08-07] MEDS: LEVOTHYROXINE 100 MCG TABLET PO SCH (06:16)
[2018-08-07] MEDS: PIPERACILLIN/TAZOBACTAM 3.375 GM in IV NORMAL SALINE 50ML 50 ML IV SCH ×3 (06:16→17:17)
[2018-08-07 07:00] VITALS: BP 156/54
[2018-08-07] MEDS ORDERED: MORPHINE SULFATE 2 MG/ML VIAL. IV PRN (07:00)
[2018-08-07] MEDS ORDERED: IV RINGERS,LACTATED 1000ML 1,000 ML IV SCH (07:00)
[2018-08-07] MEDS ORDERED: PROCHLORPERAZINE 10 MG/2 ML VIAL. IV PRN (07:00)
[2018-08-07] MEDS ORDERED: fentaNYL PF VIAL 100 MCG/2 ML VIAL IV PRN ×2 (07:00)
[2018-08-07] MEDS ORDERED: HYDROmorphone 2 MG/ML VIAL IV PRN (07:00)
[2018-08-07] MEDS ORDERED: LIDOCAINE 1% PF 2 ML VIAL. ID PRN (07:00)
[2018-08-07] MEDS: INSULIN LISPRO 300 UNITS/3 ML INSULN.PEN. SQ SCH ×3 (08:00→17:00)
[2018-08-07] MEDS: ASPIRIN ENTERIC COATED 81 MG TABLET.DR. PO SCH (08:26)
[2018-08-07] MEDS: MULTIVITAMIN with MINERAL TABLET. PO SCH (08:26)
[2018-08-07] MEDS: SODIUM BICARBONATE 650 MG TABLET. PO SCH ×3 (08:26→20:58)
[2018-08-07] MEDS: amLODIPine BESYLATE 5 MG TABLET PO SCH (08:26)
[2018-08-07] MEDS: PREGABALIN 75 MG CAPSULE PO SCH ×2 (08:27→20:58)
[2018-08-07] MEDS: PRAMIPEXOLE 0.25 MG TABLET. PO SCH (08:27)
[2018-08-07] MEDS: METOPROLOL TART IMMED RELEASE 25 MG TABLET. PO SCH ×2 (08:28→20:59)
[2018-08-07] MEDS: SALIVA STIMULANT AGENT 44ML SPRAY BOTTLE. PO SCH ×2 (08:30→21:01)
--- NOTE | 2018-08-07 10:24 | PDOC ---
SUBJECTIVE ROS No complaints today OBJECTIVE Vital Signs Vital Signs Date Time Temp Pulse Resp B/P (MAP) Pulse Ox O2 Delivery O2 Flow Rate FiO2 08/07/18 08:28 63 156/54 08/07/18 07:00 98.6 18 97 Room Air 98.6 08/06/18 14:59 2.0 I & 0 Intake and Output 08/07/18 07:00 Intake Total 480 ml Balance 480 ml Intake Oral 480 ml # Voids 5 PHYSICAL EXAM Physical Exam GEN.: No apparent distress. HEENT: OM moist NECK: Supple. LUNGS: Clear to auscultation. HEART: RRR, S1, S2 present. ABDOMEN: Soft, nontender. EXTREMITIES: right foot dressed, erythema and edema of soft tissue present NEUROLOGIC: Grossly normal SKIN: No Rash - No Menjivar DIAGNOSIS/ASSESSMENT Assessment & Plan JACKI- Creatinine Increased to 2.4 Will not restart metolazone and LE-I till renal function stabilizes Monitor , Continue IVF as discussed S/P Abdominal Aortogram 08/06 CKD stage 3 - E-Lytes stable Discussed Risk of YESSY at great length with patient and family at bedside Continue IVF(Pre Procedure) , during and at lest 12 hrs Post procedure , Hold Diuretics, LE-I/ARB Monitor for YESSY Lt Peripheral artery disease and left 1st toe gangrene Left exposed bone and cellulitis Vascular recommends left leg angiogram with IR Left 1st toe amputation scheduled for Friday On antibiotics. CAD s/p CABG Anemia- Hgb stable DM - On insulin Discussed with Pt, COMMENT/RELEVANT DATA Meds Current Medications Medications (Trade) Dose Ordered Sig/Michelle Start Time Stop Time Status Last Admin Dose Admin Acetaminophen (Tylenol) 325 mg PRN Q6HRS PRN 08/05/18 18:30 Amlodipine Besylate (Norvasc) 5 mg DAILY 08/05/18 15:00 08/07/18 08:26 5 MG Aspirin (Ecotrin) 81 mg DAILY 08/05/18 15:00 08/07/18 08:26 81 MG Atorvastatin Calcium (Lipitor) 40 mg HS 08/05/18 21:00 08/06/18 20:41 40 MG Carvedilol (Coreg) 3.125 mg BIDWMEALS 08/05/18 17:00 UNV Cefazolin Sodium 1 gm/Sodium Chloride 250 ml @ 250 mls/hr 1X ONCE 08/07/18 06:00 08/07/18 06:59 DC Dextrose (Dextrose 50%-Water Syringe) 12.5 gm PRN Q15MIN PRN 08/06/18 17:45 Fentanyl Citrate (Fentanyl 2ml Vial) 100 mcg 1X ONCE 08/06/18 13:15 08/06/18 13:16 DC 08/06/18 13:15 75 MCG Heparin Sodium (Porcine) (Heparin Sodium) 5,000 unit 1X ONCE 08/06/18 14:00 08/06/18 14:01 DC 08/06/18 14:00 5,000 UNIT Heparin Sodium/ Sodium Chloride (HEPARIN for ARTERIAL LINE FLUSH) 1,000 unit 1X ONCE 08/06/18 13:15 08/06/18 13:16 DC 08/06/18 13:15 1,000 UNIT Hydralazine HCl (Apresoline Inj) 10 mg 1X ONCE 08/06/18 14:30 08/06/18 14:33 DC 08/06/18 14:30 10 MG Hydromorphone HCl (Dilaudid) 0.5 mg PRN Q10MIN PRN 08/07/18 07:00 08/08/18 06:59 Insulin Glargine (Lantus) 20 units HS 08/05/18 21:00 08/05/18 20:58 20 UNITS Insulin Human Lispro (HumaLOG) 0-7 UNITS TIDWMEALS 08/06/18 18:00 08/06/18 18:00 6 UNITS Iodixanol (Visipaque 320) 100 ml 1X ONCE 08/06/18 13:15 08/06/18 13:16 DC 08/06/18 13:15 30 ML Levothyroxine Sodium (Synthroid) 200 mcg DAILY06 08/05/18 15:00 08/07/18 06:16 200 MCG Lidocaine HCl (Xylocaine-Mpf 1% 2ml Vial) 2 ml PRN 1X PRN 08/07/18 07:00 08/08/18 06:59 Lidocaine/Sodium Bicarbonate (Buffered Lidocaine 1%) 3 ml 1X ONCE 08/06/18 13:15 08/06/18 13:16 DC 08/06/18 13:15 5 ML Lisinopril (Prinivil) 40 mg DAILY 08/08/18 09:00 Metolazone (Zaroxolyn) 5 mg DAILY 08/08/18 09:00 Metoprolol Tartrate (Lopressor) 12.5 mg BID 08/05/18 21:00 08/07/18 08:28 12.5 MG Midazolam HCl (Versed) 2 mg 1X ONCE 08/06/18 13:15 08/06/18 13:16 DC 08/06/18 13:15 1 MG Morphine Sulfate (Morphine Sulfate) 1 mg PRN Q10MIN PRN 08/07/18 07:00 08/08/18 06:59 Multivitamins (Thera M Plus) 1 tab DAILY 08/05/18 15:00 08/07/18 08:26 1 TAB Non-Formulary Medication (Amlodipine Besylate/ Benazepril (Amlodipine-Benazepril 5-20 Mg)) 1 cap DAILY 08/06/18 09:00 UNV Non-Formulary Medication (Liraglutide (Victoza 3-Yaniv)) 1.8 mg DAILY 08/06/18 09:00 UNV Piperacillin Sod/ Tazobactam Sod (Zosyn Per Pharmacy) 1 each PRN DAILY PRN 08/05/18 13:45 Piperacillin Sod/ Tazobactam Sod 3.375 gm/Sodium Chloride 50 ml @ 100 mls/hr Q6HRS 08/05/18 14:30 08/07/18 06:16 100 MLS/HR Pramipexole Dihydrochloride (miraPEX) 0.25 mg DAILY 08/05/18 15:00 08/07/18 08:27 0.25 MG Pregabalin (Lyrica) 150 mg BID 08/05/18 21:00 08/07/18 08:27 150 MG Prochlorperazine Edisylate (Compazine) 5 mg PACU PRN PRN 08/07/18 07:00 08/08/18 06:59 Ringer's Solution 1,000 ml @ 30 mls/hr Q24H 08/07/18 07:00 08/07/18 18:59 Saliva Substitute (Biotene Moisturizing Mouth) 1 spray BID 08/05/18 21:00 08/06/18 09:00 1 SPRAY Sodium Bicarbonate (Sodium Bicarbonate) 650 mg TID 08/05/18 15:00 08/07/18 08:26 650 MG Sodium Chloride 1,000 ml @ 75 mls/hr [id number] 08/05/18 15:00 08/06/18 14:16 75 MLS/HR Lab Laboratory Tests Test 08/06/18 11:26 08/06/18 11:56 08/06/18 17:02 08/06/18 20:39 Glucose (Fingerstick) 60 mg/dL (70-99) 100 mg/dL (70-99) 258 mg/dL (70-99) 97 mg/dL (70-99) Test 08/07/18 03:35 08/07/18 07:47 Sodium Level 142 mmol/L (136-145) Potassium Level 4.4 mmol/L (3.5-5.1) Chloride Level 108 mmol/L (98-107) Carbon Dioxide Level 26 mmol/L (21-32) Anion Gap 8 (6-14) Blood Urea Nitrogen 34 mg/dL (7-20) Creatinine 2.4 mg/dL (0.6-1.0) Estimated GFR (Cockcroft-Gault) 20.4 Glucose Level 98 mg/dL (70-99) Calcium Level 8.3 mg/dL (8.5-10.1) Glucose (Fingerstick) 79 mg/dL (70-99) Results All relevant outside records, renal labs, imaging studies, telemetry/EKG's were reviewed. DAVID BOWMAN MD Aug 07, 2018 10:24
[2018-08-07] MEDS: IV NORMAL SALINE 1000ML BAG 1,000 ML IV SCH ×2 (10:43→21:01)
[2018-08-07 11:00] VITALS: BP 153/63
--- NOTE | 2018-08-07 11:56 | PDOC ---
Infectious Disease Note Subjective Subjective pt is feeling good ROS ROS no n/v/d/sob Vital Sign Vital Signs Vital Signs Date Time Temp Pulse Resp B/P (MAP) Pulse Ox O2 Delivery O2 Flow Rate FiO2 08/07/18 11:00 98.4 52 18 153/63 (93) 96 Room Air 98.4 08/06/18 14:59 2.0 Physical Exam PHYSICAL EXAM GENERAL: Alert, oriented female, not in distress. VITAL SIGNS: Stable, afebrile. HEENT: NAD. NECK: Supple, no JVP, no lymphadenopathy. LUNGS: Clear. HEART: S1, S2 regular. ABDOMEN: Benign. EXTREMITIES: No edema, cyanosis. SKIN: Unremarkable except left lower extremity dorsalis pedis is not palpable. The patient does have a left big toe with distal end that is necrotic with exposed bone and proximal of toe is cellulitic including the cellulitis that goes into the foot, although according to the patient is already looking better the foot and the toe redness. NEUROLOGIC: The patient is neurologically intact. Labs Lab Laboratory Tests Test 08/06/18 11:56 08/06/18 17:02 08/06/18 20:39 08/07/18 03:35 Glucose (Fingerstick) 100 mg/dL (70-99) 258 mg/dL (70-99) 97 mg/dL (70-99) Sodium Level 142 mmol/L (136-145) Potassium Level 4.4 mmol/L (3.5-5.1) Chloride Level 108 mmol/L (98-107) Carbon Dioxide Level 26 mmol/L (21-32) Anion Gap 8 (6-14) Blood Urea Nitrogen 34 mg/dL (7-20) Creatinine 2.4 mg/dL (0.6-1.0) Estimated GFR (Cockcroft-Gault) 20.4 Glucose Level 98 mg/dL (70-99) Calcium Level 8.3 mg/dL (8.5-10.1) Test 08/07/18 07:47 08/07/18 11:37 Glucose (Fingerstick) 79 mg/dL (70-99) 175 mg/dL (70-99) Objective Assessment Left big toe gangrene Left big toe and foot cellulitis PAD CAD Renal insufficiency DM HTN Plan Plan of Care fantasydylan angio will need I and D/amputation d/w Vascular surgery d/w STEVE Reyes MD Aug 07, 2018 11:56
--- NOTE | 2018-08-07 13:06 | PDOC ---
PROGRESS NOTES Subjective She just got lunch, no BM since admission, up to bathroom for bladder though, no chest pain, no SOA, no pain in foot Objective Afebrile General: NAD, A&O Heart: RRR Lungs: CTA Abd: soft, non distended Ext: left 1st toe dressing removed, toe unchanged from last fern, no additional ischemia of other toes, no edema of foot, redness improved, entire left toe looks ischemic Creat: 2.4 A1C noted Vital Signs Vital Signs Date Time Temp Pulse Resp B/P (MAP) Pulse Ox O2 Delivery O2 Flow Rate FiO2 08/07/18 11:00 98.4 52 18 153/63 (93) 96 Room Air 98.4 08/06/18 14:59 2.0 I & O Intake and Output 08/07/18 06:59 Intake Total 480 ml Balance 480 ml Intake Oral 480 ml # Voids 5 Assessment and Plan osteomyelitis of left 1st toe, exposed bone, gangrene demarcation developing - continue IV abx PAD - arteriogram Friday, amputation Friday CAD, s/p CABG CKD - worsening, monitor, continue IV hydration 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
[2018-08-07] MEDS: LACTOBACILLUS RHAMNOSUS GG 1 CAPSULE. PO SCH ×2 (14:17→20:58)
[2018-08-07 15:00] VITALS: BP 154/49
--- NOTE | 2018-08-07 16:38 | RAD ---
08/06/2018 1. Abdominal and pelvic angiography 2. Left lower shotty angiography 3. Angioplasty of the distal left superficial femoral artery and popliteal artery 4. Attempted but unsuccessful recannulization of the left anterior tibial artery secondary to multifocal chronic total occlusion. Discussion: The patient is a 63-year-old female with a poorly healing left great toe wound. Radiographic findings suggest confirmation osteomyelitis. Color Doppler imaging suggests significant atherosclerotic vascular disease. The patient has significant renal insufficiency, and preprocedural evaluation clearance from nephrology has been obtained. The risks and benefits of the procedure were discussed the patient. Informed consent was obtained. Timeout procedure was performed. The right groin was prepped and draped using sterile barrier technique. Ultrasound evaluation demonstrates right common femoral artery be patent. The arteries accessed using direct ultrasound guidance micropuncture technique. Fluoroscopic guidance was also used. Fluoroscopic imaging confirms placement in the mid femoral head. 5 Maori vascular sheath was placed. Catheter was advanced into the inferior abdominal aorta. Abdominal and pelvic angiography was performed with CO2, demonstrating no hemodynamically significant aortoiliac stenosis. Catheter was used to cross the aortic bifurcation and left lower extremity angiography was performed, again with CO2. It appears to be significant narrowing of the distal SFA and popliteal artery [id number]. Tibial vessel evaluation is limited with CO2. Dilute contrast angiography was performed of the distal SFA popliteal artery demonstrating approximately 60% stenosis extending from the distal SFA to the [id number] popliteal artery. Angiography of the more distal lower extremity was performed demonstrating no in-line flow to the foot. Nonvisualization of the posterior tibial artery, and peroneal artery is seen. There is chronic total occlusion of the anterior tibial artery just beyond its origin. Multifocal occlusion is seen. There is some reconstitution level of the ankle. Significant dorsalis pedis artery is not well visualized. An up and over vascular sheath was placed. Attempts were made to recanalize the anterior tibial artery which were ultimately unsuccessful. Angioplasty was performed at the distal SFA and proximal [id number] popliteal artery utilizing significantly improved morphology and flow. A 4 mm balloon was used. All wires, catheters, and sheaths were removed. Hemostasis of the right groin was achieved with the aid of a Mynx closure device. Sterile dressings were applied Fluoroscopy time: 22.6 MINUTES dose area product 113 Gycm2 The procedures performed under conscious sedation including continuous cardiopulmonary monitoring via a dedicated sedation nurse. [id number] sedation time: 101 minutes Impression: 1. No evidence of hemodynamic significant aortoiliac stenosis 2. 60% stenosis of the distal left superficial femoral artery extending to the popliteal artery treated with balloon angioplasty 3. 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 No significant reconstitution of the dorsalis pedis artery at the foot.
--- NOTE | 2018-08-07 18:11 | PDOC ---
Provider Note Provider Note af vss awake and alert left 1st toe dry gangrene of distal toe and toenail bed, erythema improving now only in the toe, swelling improved A/P 63 year old female with left 1st toe gangrene and severe tibial artery occlusive disease - plan another attempt on tibial artery revascularization with angioplasty with Dr. Cabello on friday, no distal artery target for a bypass operation. Will plan angio friday if ok with nephrology, Cr 2.4 today - antibiotics per ID CARMEN WILL MD Aug 07, 2018 18:11
[2018-08-07 19:00] VITALS: BP 164/51
[2018-08-07] MEDS: ACETAMINOPHEN 325 MG TABLET. PO PRN (20:58)
[2018-08-07] MEDS: ATORVASTATIN CALCIUM 40 MG TABLET. PO SCH (20:59)
[2018-08-07] MEDS: INSULIN GLARGINE 300 UNITS/3 ML INSULN.PEN. SQ SCH (21:06)
[2018-08-07 23:00] VITALS: BP 143/56
[2018-08-08] MEDS: PIPERACILLIN/TAZOBACTAM 3.375 GM in IV NORMAL SALINE 50ML 50 ML IV SCH ×3 (00:11→12:44)
[2018-08-08 03:00] VITALS: BP 155/55
[2018-08-08] MEDS: LEVOTHYROXINE 25 MCG TABLET. PO SCH (05:44)
[2018-08-08] MEDS: LEVOTHYROXINE 100 MCG TABLET PO SCH (05:44)
[2018-08-08 06:45] LABS: CALCIUM 8.9 mg/dL (8.5-10.1); CREATININE 2.6 mg/dL (0.6-1.0); GFR 18.6; POTASSIUM 4.6 mmol/L (3.5-5.1)
[2018-08-08 07:00] VITALS: BP 164/55
[2018-08-08] MEDS: INSULIN LISPRO 300 UNITS/3 ML INSULN.PEN. SQ SCH ×3 (08:00→17:23)
[2018-08-08] MEDS ORDERED: LISINOPRIL 20 MG TABLET PO SCH (09:00)
[2018-08-08] MEDS: SALIVA STIMULANT AGENT 44ML SPRAY BOTTLE. PO SCH ×2 (09:00→20:17)
[2018-08-08] MEDS ORDERED: metOLazone 2.5 MG TABLET PO SCH (09:00)
[2018-08-08] MEDS: MULTIVITAMIN with MINERAL TABLET. PO SCH (09:08)
[2018-08-08] MEDS: ASPIRIN ENTERIC COATED 81 MG TABLET.DR. PO SCH (09:08)
[2018-08-08] MEDS: amLODIPine BESYLATE 5 MG TABLET PO SCH (09:08)
[2018-08-08] MEDS: SODIUM BICARBONATE 650 MG TABLET. PO SCH ×3 (09:08→20:18)
[2018-08-08] MEDS: PRAMIPEXOLE 0.25 MG TABLET. PO SCH (09:09)
[2018-08-08] MEDS: LACTOBACILLUS RHAMNOSUS GG 1 CAPSULE. PO SCH ×2 (09:09→20:21)
[2018-08-08] MEDS: METOPROLOL TART IMMED RELEASE 25 MG TABLET. PO SCH ×2 (09:09→20:19)
[2018-08-08] MEDS: PREGABALIN 75 MG CAPSULE PO SCH ×2 (09:10→20:23)
[2018-08-08] MEDS: IV NORMAL SALINE 1000ML BAG 1,000 ML IV SCH ×2 (09:40→12:47)
--- NOTE | 2018-08-08 10:09 | PDOC ---
Provider Note Provider Note Vascular consult follow-up Left first toe tip ulcer with underlying osteomyelitis. Evaluation shows significant tibial artery occlusive disease. Patient is scheduled for pedal access and retrograde angioplasty enough to improve perfusion into her foot. She will have her toe amputation once improve circulation has been achieved SHERRI HITCHCOCK MD Aug 08, 2018 10:09
[2018-08-08 11:00] VITALS: BP 154/58
--- NOTE | 2018-08-08 13:11 | PDOC ---
Infectious Disease Note Subjective Subjective Comfortable, denies pain Denies F/C/N/V/D ROS ROS per HPI otherwise neg Vital Sign Vital Signs Vital Signs Date Time Temp Pulse Resp B/P (MAP) Pulse Ox O2 Delivery O2 Flow Rate FiO2 08/08/18 11:00 98.7 51 17 154/58 (90) 93 Room Air 98.7 08/08/18 08:00 2.0 Physical Exam PHYSICAL EXAM GENERAL: Propped up in bed, alert, smiling HEENT: Oral cavity clear, partial in place NECK: Supple LUNGS: Clear. HEART: S1, S2 regular. ABDOMEN: Soft and nontender EXTREMITIES: No edema, cyanosis. left foot bandaged. DP difficult to palpate SKIN: No rash NEUROLOGIC: Alert and oriented x 3 Labs Lab Laboratory Tests Test 08/07/18 16:44 08/07/18 20:52 08/08/18 04:51 08/08/18 07:33 Glucose (Fingerstick) 148 mg/dL (70-99) 255 mg/dL (70-99) 68 mg/dL (70-99) Sodium Level 142 mmol/L (136-145) Potassium Level 4.6 mmol/L (3.5-5.1) Chloride Level 107 mmol/L (98-107) Carbon Dioxide Level 25 mmol/L (21-32) Anion Gap 10 (6-14) Blood Urea Nitrogen 40 mg/dL (7-20) Creatinine 2.6 mg/dL (0.6-1.0) Estimated GFR (Cockcroft-Gault) 18.6 Glucose Level 89 mg/dL (70-99) Calcium Level 8.9 mg/dL (8.5-10.1) Test 08/08/18 10:03 Glucose (Fingerstick) 162 mg/dL (70-99) Objective Assessment Left big toe gangrene with exposed bone Left big toe and foot cellulitis PAD CAD JACKI DM HTN Plan Plan of Care Continue Zosyn, dose adjusted for renal function Plan for angio on Friday followed by amputation on Friday Local wound care D/w Dr. Pino Patient seen and examined. Chart reviewed in detail. Case d/w PULMONARY PHYSICIAN. Agree with above plan. SHREE DEL REAL APPLIANCES SAMPLE MAKER Aug 08, 2018 13:11 SHON PALACIOS MD Aug 08, 2018 20:32
--- NOTE | 2018-08-08 14:07 | PDOC ---
PROGRESS NOTES Subjective BUN, Cr still increasing depite IV hydration, Dr. Acuna removed her toenail, no chest pain, no SOA, appetite good, sugars fairly well controlled Objective Afebrile General: A&O, NAD Heart: RRR Lungs: CTA Abd: soft, non tender Ext: left 1st toe unchanged other than nail now off BUN: 40 Creat: 2.6 Vital Signs Vital Signs Date Time Temp Pulse Resp B/P (MAP) Pulse Ox O2 Delivery O2 Flow Rate FiO2 08/08/18 11:00 98.7 51 17 154/58 (90) 93 Room Air 98.7 08/08/18 08:00 2.0 I & O Intake and Output 08/08/18 07:00 Intake Total 865 ml Output Total 0 ml Balance 865 ml Intake Oral 430 ml IV Total 435 ml Output Urine Total 0 ml # Voids 2 # Bowel Movements 1 Assessment and Plan osteomyelitis of left 1st toe, exposed bone, gangrene demarcation developing - continue IV abx PAD - arteriogram Friday, amputation Friday? CAD, s/p CABG CKD - worsening due to contrast from studies, monitor, continue IV hydration Type 2 diabetes- on terminal supervisor insulin, SSI added, A1C not consistent with good control, reviewed diet choices Nicolás HAMM MD Aug 08, 2018 14:07
--- NOTE | 2018-08-08 14:11 | PDOC ---
Renal-Progress Notes Subjective Notes Notes NO NEW COMPLAINTS History of Present Illness Hx of present illness STABLE Vitals Vitals Vital Signs Date Time Temp Pulse Resp B/P (MAP) Pulse Ox O2 Delivery O2 Flow Rate FiO2 08/08/18 11:00 98.7 51 17 154/58 (90) 93 Room Air 98.7 08/08/18 08:00 2.0 Weight Weight [ ] I.O. Intake and Output Intake and Output 08/08/18 07:00 Intake Total 865 ml Output Total 0 ml Balance 865 ml Intake Oral 430 ml IV Total 435 ml Output Urine Total 0 ml # Voids 2 # Bowel Movements 1 Labs Labs Laboratory Tests Test 08/07/18 16:44 08/07/18 20:52 08/08/18 04:51 08/08/18 07:33 Glucose (Fingerstick) 148 mg/dL (70-99) 255 mg/dL (70-99) 68 mg/dL (70-99) Sodium Level 142 mmol/L (136-145) Potassium Level 4.6 mmol/L (3.5-5.1) Chloride Level 107 mmol/L (98-107) Carbon Dioxide Level 25 mmol/L (21-32) Anion Gap 10 (6-14) Blood Urea Nitrogen 40 mg/dL (7-20) Creatinine 2.6 mg/dL (0.6-1.0) Estimated GFR (Cockcroft-Gault) 18.6 Glucose Level 89 mg/dL (70-99) Calcium Level 8.9 mg/dL (8.5-10.1) Test 08/08/18 10:03 Glucose (Fingerstick) 162 mg/dL (70-99) Review of Systems Constitutional: yes: weakness, alert, oriented Ears/Nose/Throat: Yes: no symptom reported Eyes: Yes: no symptom reported Cardiovascular: Yes no symptom reported Gastrointestional: Yes: constipation Genitourinary: Yes: no symptom reported Musculoskeletal: Yes: foot pain Skin: Yes no symptom reported Psychiatric/Neurological: Yes: no symptom reported Endocrine: Yes: no symptom reported Physical Exam General Appearance: no apparent distress, oriented Skin: warm, dry Respiratory: bilateral CTA Heart: S1S2, RRR Abdomen: soft, bowel sounds present Genitourinary: bladder flat Extremities: pulses present Neurology: alert, oriented Assessment Assessment IMP CKD STAGE 3 WITH CR OF ABOUT 2.0 MILD JACKI DUE TO CAN LEFT TOE OSTEO PAD DM II HTN PLAN CONT HYDRATION PT TO HAVE CHEESE WEIGHER LE SOON WOULD LIKE FOR RENAL FXN TO IMPROVE BEFORE THAT WILL FOLLOW CHUYITA TINAJERO MD Aug 08, 2018 14:11
[2018-08-08 15:00] VITALS: BP 151/62
[2018-08-08] MEDS: PIPERACILLIN/TAZOBACTAM 2.25 GM in IV NORMAL SALINE 50ML 50 ML IV SCH (17:17)
[2018-08-08 19:00] VITALS: BP 160/55
[2018-08-08] MEDS: ATORVASTATIN CALCIUM 40 MG TABLET. PO SCH (20:20)
[2018-08-08] MEDS: INSULIN GLARGINE 300 UNITS/3 ML INSULN.PEN. SQ SCH (20:36)
[2018-08-08 23:00] VITALS: BP 168/55
[2018-08-09] VITALS (7 sets, daily range): BP systolic 117–178; BP diastolic 47–74
[2018-08-09] MEDS: PIPERACILLIN/TAZOBACTAM 2.25 GM in IV NORMAL SALINE 50ML 50 ML IV SCH ×5 (00:05→23:51)
[2018-08-09 04:22] LABS: CALCIUM 8.6 mg/dL (8.5-10.1); CREATININE 2.6 mg/dL (0.6-1.0); GFR 18.6
[2018-08-09] MEDS: LEVOTHYROXINE 100 MCG TABLET PO SCH (05:45)
[2018-08-09] MEDS: LEVOTHYROXINE 25 MCG TABLET. PO SCH (05:45)
[2018-08-09] MEDS: INSULIN LISPRO 300 UNITS/3 ML INSULN.PEN. SQ SCH ×3 (08:00→16:32)
[2018-08-09] MEDS: PREGABALIN 75 MG CAPSULE PO SCH ×2 (09:00→20:50)
[2018-08-09] MEDS: SALIVA STIMULANT AGENT 44ML SPRAY BOTTLE. PO SCH ×2 (09:00→20:49)
[2018-08-09] MEDS: IV NORMAL SALINE 1000ML BAG 1,000 ML IV SCH ×2 (09:12→17:04)
[2018-08-09] MEDS: PRAMIPEXOLE 0.25 MG TABLET. PO SCH (09:12)
[2018-08-09] MEDS: ASPIRIN ENTERIC COATED 81 MG TABLET.DR. PO SCH (09:14)
[2018-08-09] MEDS: SODIUM BICARBONATE 650 MG TABLET. PO SCH ×3 (09:14→20:47)
[2018-08-09] MEDS: MULTIVITAMIN with MINERAL TABLET. PO SCH (09:14)
[2018-08-09] MEDS: LACTOBACILLUS RHAMNOSUS GG 1 CAPSULE. PO SCH ×2 (09:14→20:46)
[2018-08-09] MEDS: METOPROLOL TART IMMED RELEASE 25 MG TABLET. PO SCH ×2 (09:22→20:47)
[2018-08-09] MEDS: amLODIPine BESYLATE 5 MG TABLET PO SCH (09:23)
--- NOTE | 2018-08-09 10:14 | PDOC ---
Provider Note Provider Note AF VSS awake and alert left 1st toe cellulitis stable, dry gangrene of the distal toe, no swelling of the foot Cr 2.6 A/P 63 year old female with severe left leg peripheral artery disease and 1st toe gangrene/cellulitis - plan angiogram with possible tibial intervention, no distal target for bypass on friday if ok with nephrology. Will recheck Cr in the morning. Will reschedule procedure if needed. - antibiotics per ID - will need a left 1st toe amputation following revascularization CARMEN WILL MD Aug 09, 2018 10:14
--- NOTE | 2018-08-09 11:38 | PDOC ---
Infectious Disease Note Subjective Subjective Comfortable, denies pain Notice rash right hand, doesn't itch Denies F/C/N/V ROS ROS per HPI Vital Sign Vital Signs Vital Signs Date Time Temp Pulse Resp B/P (MAP) Pulse Ox O2 Delivery O2 Flow Rate FiO2 08/09/18 09:26 99.3 59 17 134/53 (80) 91 Room Air 2.0 99.3 Physical Exam PHYSICAL EXAM GENERAL: Propped up in bed, alert, crocheting HEENT: Oral cavity clear, partial in place NECK: Supple LUNGS: Clear. HEART: S1, S2 regular. ABDOMEN: Soft and nontender EXTREMITIES: No edema, cyanosis. left foot bandaged. DP difficult to palpate SKIN: Light rash dorsal accept right hand/fingers. No warmth NEUROLOGIC: Alert and oriented x 3 Labs Lab Laboratory Tests Test 08/08/18 16:13 08/08/18 20:27 08/09/18 03:25 08/09/18 07:49 Glucose (Fingerstick) 185 mg/dL (70-99) 164 mg/dL (70-99) 56 mg/dL (70-99) Sodium Level 139 mmol/L (136-145) Potassium Level 4.0 mmol/L (3.5-5.1) Chloride Level 105 mmol/L (98-107) Carbon Dioxide Level 23 mmol/L (21-32) Anion Gap 11 (6-14) Blood Urea Nitrogen 48 mg/dL (7-20) Creatinine 2.6 mg/dL (0.6-1.0) Estimated GFR (Cockcroft-Gault) 18.6 Glucose Level 75 mg/dL (70-99) Calcium Level 8.6 mg/dL (8.5-10.1) Objective Assessment Left big toe gangrene with exposed bone Left big toe and foot cellulitis PAD CAD JACKI DM HTN Rash right hand Plan Plan of Care Continue Zosyn, dose adjusted for renal function Plan for angio on Friday followed by amputation on Friday Local wound care Monitor rash Patient seen and examined. Chart reviewed in detail. Case discussed with TRACTOR TRAILER DRIVER. Agree with above plan. SHREE DEL REAL DIABETES PHYSICIAN Aug 09, 2018 11:38 SHON PALACIOS MD Aug 09, 2018 18:55
--- NOTE | 2018-08-09 11:46 | PDOC ---
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 CAD, s/p CABG CKD - worsening due to contrast from studies, monitor, continue IV hydration, renal following, may need to postpone vascular study Type 2 diabetes- on oysterman insulin, SSI added, A1C not consistent with good control, reviewed diet choices Nicolás HAMM MD Aug 09, 2018 11:46
--- NOTE | 2018-08-09 12:01 | PDOC ---
Renal-Progress Notes Subjective Notes Notes NO NEW COMPLAINTS History of Present Illness Hx of present illness STABLE Vitals Vitals Vital Signs Date Time Temp Pulse Resp B/P (MAP) Pulse Ox O2 Delivery O2 Flow Rate FiO2 08/09/18 11:00 99.7 55 17 157/51 (86) 90 Room Air 2.0 99.7 Weight Weight [ ] I.O. Intake and Output Intake and Output 08/09/18 07:00 Intake Total 2890 ml Balance 2890 ml Intake Oral 1640 ml IV Total 1250 ml # Voids 5 Labs Labs Laboratory Tests Test 08/08/18 16:13 08/08/18 20:27 08/09/18 03:25 08/09/18 07:49 Glucose (Fingerstick) 185 mg/dL (70-99) 164 mg/dL (70-99) 56 mg/dL (70-99) Sodium Level 139 mmol/L (136-145) Potassium Level 4.0 mmol/L (3.5-5.1) Chloride Level 105 mmol/L (98-107) Carbon Dioxide Level 23 mmol/L (21-32) Anion Gap 11 (6-14) Blood Urea Nitrogen 48 mg/dL (7-20) Creatinine 2.6 mg/dL (0.6-1.0) Estimated GFR (Cockcroft-Gault) 18.6 Glucose Level 75 mg/dL (70-99) Calcium Level 8.6 mg/dL (8.5-10.1) Test 08/09/18 11:34 Glucose (Fingerstick) 112 mg/dL (70-99) Review of Systems Constitutional: yes: weakness, alert, oriented Ears/Nose/Throat: Yes: no symptom reported Eyes: Yes: no symptom reported Cardiovascular: Yes no symptom reported Gastrointestional: Yes: constipation Genitourinary: Yes: no symptom reported Musculoskeletal: Yes: foot pain Skin: Yes no symptom reported Psychiatric/Neurological: Yes: no symptom reported Endocrine: Yes: no symptom reported Physical Exam General Appearance: no apparent distress, oriented Skin: warm, dry Respiratory: bilateral CTA Heart: S1S2, RRR Abdomen: soft, bowel sounds present Genitourinary: bladder flat Extremities: pulses present Neurology: alert, oriented Assessment Assessment IMP CKD STAGE 3 WITH CR OF ABOUT 2.0 MILD JACKI DUE TO CAN WITH CR OF 2.6 LEFT TOE OSTEO PAD DM II HTN PLAN CONT HYDRATION WOULD LIKE FOR RENAL FXN TO IMPROVE BEFORE ANY FURTHER CONTRAST EXPOSURE WILL FOLLOW CHUYITA TINAJERO MD Aug 09, 2018 12:01
[2018-08-09] MEDS: ATORVASTATIN CALCIUM 40 MG TABLET. PO SCH (20:46)
[2018-08-09] MEDS: INSULIN GLARGINE 300 UNITS/3 ML INSULN.PEN. SQ SCH (20:58)
[2018-08-10] VITALS (7 sets, daily range): BP systolic 141–173; BP diastolic 40–55
[2018-08-10 05:20] LABS: HEMATOCRIT 24.8 % (36.0-47.0); HEMOGLOBIN 8.1 g/dL (12.0-15.5); RED BLOOD COUNT 3.15 x10^6/uL (3.50-5.40); RED CELL DISTRIBUTION WIDTH 14.5 % (11.5-14.5); WHITE BLOOD COUNT 7.8 x10^3/uL (4.0-11.0)
[2018-08-10 05:47] LABS: CALCIUM 8.5 mg/dL (8.5-10.1); CREATININE 2.6 mg/dL (0.6-1.0); GFR 18.6; POTASSIUM 4.1 mmol/L (3.5-5.1)
[2018-08-10] MEDS: LEVOTHYROXINE 25 MCG TABLET. PO SCH (05:56)
[2018-08-10] MEDS: LEVOTHYROXINE 100 MCG TABLET PO SCH (05:56)
[2018-08-10] MEDS: PIPERACILLIN/TAZOBACTAM 2.25 GM in IV NORMAL SALINE 50ML 50 ML IV SCH ×3 (06:02→17:27)
[2018-08-10] MEDS: IV NORMAL SALINE 1000ML BAG 1,000 ML IV SCH ×2 (06:06→15:34)
--- NOTE | 2018-08-10 08:22 | NUR ---
SW following pt for anticipated dc needs. Chart reviewed. Pt lives home alone and might benefit from PT/OT after procedure. ID, nephrology and Vascular following pt. Will continue to assess needs.
[2018-08-10] MEDS: INSULIN LISPRO 300 UNITS/3 ML INSULN.PEN. SQ SCH ×3 (08:24→16:41)
[2018-08-10] MEDS: LACTOBACILLUS RHAMNOSUS GG 1 CAPSULE. PO SCH ×2 (08:47→21:03)
[2018-08-10] MEDS: SALIVA STIMULANT AGENT 44ML SPRAY BOTTLE. PO SCH ×2 (08:47→21:00)
[2018-08-10] MEDS: ASPIRIN ENTERIC COATED 81 MG TABLET.DR. PO SCH (08:48)
[2018-08-10] MEDS: METOPROLOL TART IMMED RELEASE 25 MG TABLET. PO SCH ×2 (08:49→21:04)
[2018-08-10] MEDS: PREGABALIN 75 MG CAPSULE PO SCH ×2 (08:51→21:00)
[2018-08-10] MEDS: PRAMIPEXOLE 0.25 MG TABLET. PO SCH (08:51)
[2018-08-10] MEDS: amLODIPine BESYLATE 5 MG TABLET PO SCH (08:52)
[2018-08-10] MEDS: MULTIVITAMIN with MINERAL TABLET. PO SCH (08:52)
[2018-08-10] MEDS: SODIUM BICARBONATE 650 MG TABLET. PO SCH ×3 (08:52→21:03)
--- NOTE | 2018-08-10 09:37 | PDOC ---
SUBJECTIVE ROS No complaints today OBJECTIVE Vital Signs Vital Signs Date Time Temp Pulse Resp B/P (MAP) Pulse Ox O2 Delivery O2 Flow Rate FiO2 08/10/18 08:52 53 162/49 08/10/18 07:00 98.7 16 94 Room Air 98.7 08/09/18 15:00 2.0 I & 0 Intake and Output 08/10/18 07:00 Intake Total 820 ml Balance 820 ml Intake Oral 820 ml # Voids 7 PHYSICAL EXAM Physical Exam GEN.: No apparent distress. HEENT: OM moist NECK: Supple. LUNGS: Clear to auscultation. HEART: RRR, S1, S2 present. ABDOMEN: Soft, nontender. EXTREMITIES: right foot dressed, erythema and edema of soft tissue present NEUROLOGIC: Grossly normal SKIN: No Rash - No Menjivar DIAGNOSIS/ASSESSMENT Assessment & Plan JACKI- Stable at 2.6 (baseline 2.0)- may have plateaued Holding metolazone and LE-I till renal function stabilizes Plan for angiogram with possible tibial intervention today Would like to Renal function to improve before any further contrast exposure Discussed with Dr. Griggs, she is agrees to hold it off today Re-eval in am CKD stage 3 - S/P Abdominal Aortogram 08/06 E-Lytes stable Discussed Risk of YESSY at great length with patient and family at bedside Before next Angio will need IVF(Pre Procedure) , during and at lest 12 hrs Post procedure , Hold Diuretics, LE-I/ARB Monitor for YESSY Lt Peripheral artery disease and left 1st toe gangrene Left exposed bone and cellulitis S/P Abdominal Aortogram 08/06 Angiogram with possible tibial intervention will be scheduled after renal function improves followed by Left 1st toe amputation scheduled for Friday Discussed with Dr. Griggs On antibiotics. CAD s/p CABG Anemia- Noted drop in Hgb Monitor DM - On insulin Discussed with Pt and sister both verbalized understanding and agree with above Lane RN COMMENT/RELEVANT DATA Meds Current Medications Medications (Trade) Dose Ordered Sig/Michelle Start Time Stop Time Status Last Admin Dose Admin Acetaminophen (Tylenol) 325 mg PRN Q6HRS PRN 08/05/18 18:30 Amlodipine Besylate (Norvasc) 5 mg DAILY 08/05/18 15:00 08/10/18 08:52 5 MG Aspirin (Ecotrin) 81 mg DAILY 08/05/18 15:00 08/10/18 08:48 81 MG Atorvastatin Calcium (Lipitor) 40 mg HS 08/05/18 21:00 08/09/18 20:46 40 MG Carvedilol (Coreg) 3.125 mg BIDWMEALS 08/05/18 17:00 UNV Cefazolin Sodium 1 gm/Sodium Chloride 250 ml @ 250 mls/hr 1X ONCE 08/07/18 06:00 08/07/18 06:59 DC Dextrose (Dextrose 50%-Water Syringe) 12.5 gm PRN Q15MIN PRN 08/06/18 17:45 08/10/18 08:21 12.5 GM Fentanyl Citrate (Fentanyl 2ml Vial) 100 mcg 1X ONCE 08/06/18 13:15 08/06/18 13:16 DC 08/06/18 13:15 75 MCG Heparin Sodium (Porcine) (Heparin Sodium) 5,000 unit 1X ONCE 08/06/18 14:00 08/06/18 14:01 DC 08/06/18 14:00 5,000 UNIT Heparin Sodium/ Sodium Chloride (HEPARIN for ARTERIAL LINE FLUSH) 1,000 unit 1X ONCE 08/06/18 13:15 08/06/18 13:16 DC 08/06/18 13:15 1,000 UNIT Hydralazine HCl (Apresoline Inj) 10 mg 1X ONCE 08/06/18 14:30 08/06/18 14:33 DC 08/06/18 14:30 10 MG Hydromorphone HCl (Dilaudid) 0.5 mg PRN Q10MIN PRN 08/07/18 07:00 08/08/18 06:59 DC Insulin Glargine (Lantus) 20 units HS 08/05/18 21:00 08/09/18 20:58 20 UNITS Insulin Human Lispro (HumaLOG) 0-7 UNITS TIDWMEALS 08/06/18 18:00 08/08/18 17:23 3 UNITS Iodixanol (Visipaque 320) 100 ml 1X ONCE 08/06/18 13:15 08/06/18 13:16 DC 08/06/18 13:15 30 ML Lactobacillus Rhamnosus (Culturelle) 1 cap BID 08/07/18 14:00 08/10/18 08:47 1 CAP Levothyroxine Sodium (Synthroid) 200 mcg DAILY06 08/05/18 15:00 08/10/18 05:56 200 MCG Lidocaine HCl (Xylocaine-Mpf 1% 2ml Vial) 2 ml PRN 1X PRN 08/07/18 07:00 08/08/18 06:59 DC Lidocaine/Sodium Bicarbonate (Buffered Lidocaine 1%) 3 ml 1X ONCE 08/06/18 13:15 08/06/18 13:16 DC 08/06/18 13:15 5 ML Lisinopril (Prinivil) 40 mg DAILY 08/08/18 09:00 08/08/18 09:00 DC Metolazone (Zaroxolyn) 5 mg DAILY 08/08/18 09:00 08/08/18 09:00 DC Metoprolol Tartrate (Lopressor) 12.5 mg BID 08/05/18 21:00 08/10/18 08:49 12.5 MG Midazolam HCl (Versed) 2 mg 1X ONCE 08/06/18 13:15 08/06/18 13:16 DC 08/06/18 13:15 1 MG Morphine Sulfate (Morphine Sulfate) 1 mg PRN Q10MIN PRN 08/07/18 07:00 08/08/18 06:59 DC Multivitamins (Thera M Plus) 1 tab DAILY 08/05/18 15:00 08/10/18 08:52 1 TAB Non-Formulary Medication (Amlodipine Besylate/ Benazepril (Amlodipine-Benazepril 5-20 Mg)) 1 cap DAILY 08/06/18 09:00 UNV Non-Formulary Medication (Liraglutide (Victoza 3-Yaniv)) 1.8 mg DAILY 08/06/18 09:00 UNV Piperacillin Sod/ Tazobactam Sod (Zosyn Per Pharmacy) 1 each PRN DAILY PRN 08/05/18 13:45 Piperacillin Sod/ Tazobactam Sod 2.25 gm/Sodium Chloride 50 ml @ 100 mls/hr Q6HRS 08/08/18 18:00 08/10/18 06:02 100 MLS/HR Piperacillin Sod/ Tazobactam Sod 3.375 gm/Sodium Chloride 50 ml @ 100 mls/hr Q6HRS 08/05/18 14:30 08/08/18 13:10 DC 08/08/18 12:44 100 MLS/HR Pramipexole Dihydrochloride (miraPEX) 0.25 mg DAILY 08/05/18 15:00 08/10/18 08:51 0.25 MG Pregabalin (Lyrica) 150 mg BID 08/05/18 21:00 08/08/18 20:23 150 MG Prochlorperazine Edisylate (Compazine) 5 mg PACU PRN PRN 08/07/18 07:00 08/08/18 06:59 DC Ringer's Solution 1,000 ml @ 30 mls/hr Q24H 08/07/18 07:00 08/07/18 18:59 DC Saliva Substitute (Biotene Moisturizing Mouth) 1 spray BID 08/05/18 21:00 08/08/18 20:17 1 SPRAY Sodium Bicarbonate (Sodium Bicarbonate) 650 mg TID 08/05/18 15:00 08/10/18 08:52 650 MG Sodium Chloride 1,000 ml @ 100 mls/hr Q10H 08/05/18 15:00 08/10/18 06:06 100 MLS/HR Lab Laboratory Tests Test 08/09/18 11:34 08/09/18 16:21 08/09/18 20:29 08/10/18 04:03 Glucose (Fingerstick) 112 mg/dL (70-99) 138 mg/dL (70-99) 230 mg/dL (70-99) White Blood Count 7.8 x10^3/uL (4.0-11.0) Red Blood Count 3.15 x10^6/uL (3.50-5.40) Hemoglobin 8.1 g/dL (12.0-15.5) Hematocrit 24.8 % (36.0-47.0) Mean Corpuscular Volume 79 fL (79-100) Mean Corpuscular Hemoglobin 26 pg (25-35) Mean Corpuscular Hemoglobin Concent 33 g/dL (31-37) Red Cell Distribution Width 14.5 % (11.5-14.5) Platelet Count 225 x10^3/uL (140-400) Sodium Level 143 mmol/L (136-145) Potassium Level 4.1 mmol/L (3.5-5.1) Chloride Level 108 mmol/L (98-107) Carbon Dioxide Level 26 mmol/L (21-32) Anion Gap 9 (6-14) Blood Urea Nitrogen 48 mg/dL (7-20) Creatinine 2.6 mg/dL (0.6-1.0) Estimated GFR (Cockcroft-Gault) 18.6 Glucose Level 104 mg/dL (70-99) Calcium Level 8.5 mg/dL (8.5-10.1) Test 08/10/18 07:41 08/10/18 08:45 Glucose (Fingerstick) 66 mg/dL (70-99) 115 mg/dL (70-99) Results All relevant outside records, renal labs, imaging studies, telemetry/EKG's were reviewed. Other Abdominal aortogram . No evidence of hemodynamic significant aortoiliac stenosis 2. 60% stenosis of the distal left superficial femoral artery extending to the popliteal artery treated with balloon angioplasty 3. 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 No significant reconstitution of the dorsalis pedis artery at the foot. DAVID BOWMAN MD Aug 10, 2018 09:37
--- NOTE | 2018-08-10 09:48 | NUR ---
Wound Care Wound care follow up for L great toe DFU. Cleansed wound, applied iodoflex and covered with telfa bandaid. Recommend to change every other day. No other wounds noted on full skin inspection. WC will continue to follow for possible changes. Pt educated on PU prevention.
--- NOTE | 2018-08-10 10:33 | PDOC ---
Infectious Disease Note Subjective: Subjective Comfortable, denies pain Had diarrhea day before yesterday,now resolved Denies F/C/N/V Vital Signs: Vital Signs Vital Signs Date Time Temp Pulse Resp B/P (MAP) Pulse Ox O2 Delivery O2 Flow Rate FiO2 08/10/18 08:52 53 162/49 08/10/18 07:00 98.7 16 94 Room Air 98.7 08/09/18 15:00 2.0 Physical Exam: PHYSICAL EXAM GENERAL: Propped up in bed, alert, crocheting HEENT: Oral cavity clear, partial in place NECK: Supple LUNGS: Clear. HEART: S1, S2 regular. ABDOMEN: Soft and nontender EXTREMITIES: No edema, cyanosis. left foot bandaged. DP difficult to palpate SKIN: Light rash dorsal accept right hand/fingers. No warmth NEUROLOGIC: Alert and oriented x 3 Medications: Inpatient Meds: Current Medications Medications (Trade) Dose Ordered Sig/Michelle Start Time Stop Time Status Last Admin Dose Admin Acetaminophen (Tylenol) 325 mg PRN Q6HRS PRN 08/05/18 18:30 Amlodipine Besylate (Norvasc) 5 mg DAILY 08/05/18 15:00 08/10/18 08:52 5 MG Aspirin (Ecotrin) 81 mg DAILY 08/05/18 15:00 08/10/18 08:48 81 MG Atorvastatin Calcium (Lipitor) 40 mg HS 08/05/18 21:00 08/09/18 20:46 40 MG Carvedilol (Coreg) 3.125 mg BIDWMEALS 08/05/18 17:00 UNV Cefazolin Sodium 1 gm/Sodium Chloride 250 ml @ 250 mls/hr 1X ONCE 08/07/18 06:00 08/07/18 06:59 DC Dextrose (Dextrose 50%-Water Syringe) 12.5 gm PRN Q15MIN PRN 08/06/18 17:45 08/10/18 08:21 12.5 GM Fentanyl Citrate (Fentanyl 2ml Vial) 100 mcg 1X ONCE 08/06/18 13:15 08/06/18 13:16 DC 08/06/18 13:15 75 MCG Heparin Sodium (Porcine) (Heparin Sodium) 5,000 unit 1X ONCE 08/06/18 14:00 08/06/18 14:01 DC 08/06/18 14:00 5,000 UNIT Heparin Sodium/ Sodium Chloride (HEPARIN for ARTERIAL LINE FLUSH) 1,000 unit 1X ONCE 08/06/18 13:15 08/06/18 13:16 DC 08/06/18 13:15 1,000 UNIT Hydralazine HCl (Apresoline Inj) 10 mg 1X ONCE 08/06/18 14:30 08/06/18 14:33 DC 08/06/18 14:30 10 MG Hydromorphone HCl (Dilaudid) 0.5 mg PRN Q10MIN PRN 08/07/18 07:00 08/08/18 06:59 DC Insulin Glargine (Lantus) 20 units HS 08/05/18 21:00 08/09/18 20:58 20 UNITS Insulin Human Lispro (HumaLOG) 0-7 UNITS TIDWMEALS 08/06/18 18:00 08/08/18 17:23 3 UNITS Iodixanol (Visipaque 320) 100 ml 1X ONCE 08/06/18 13:15 08/06/18 13:16 DC 08/06/18 13:15 30 ML Lactobacillus Rhamnosus (Culturelle) 1 cap BID 08/07/18 14:00 08/10/18 08:47 1 CAP Levothyroxine Sodium (Synthroid) 200 mcg DAILY06 08/05/18 15:00 08/10/18 05:56 200 MCG Lidocaine HCl (Xylocaine-Mpf 1% 2ml Vial) 2 ml PRN 1X PRN 08/07/18 07:00 08/08/18 06:59 DC Lidocaine/Sodium Bicarbonate (Buffered Lidocaine 1%) 3 ml 1X ONCE 08/06/18 13:15 08/06/18 13:16 DC 08/06/18 13:15 5 ML Lisinopril (Prinivil) 40 mg DAILY 08/08/18 09:00 08/08/18 09:00 DC Metolazone (Zaroxolyn) 5 mg DAILY 08/08/18 09:00 08/08/18 09:00 DC Metoprolol Tartrate (Lopressor) 12.5 mg BID 08/05/18 21:00 08/10/18 08:49 12.5 MG Midazolam HCl (Versed) 2 mg 1X ONCE 08/06/18 13:15 08/06/18 13:16 DC 08/06/18 13:15 1 MG Morphine Sulfate (Morphine Sulfate) 1 mg PRN Q10MIN PRN 08/07/18 07:00 08/08/18 06:59 DC Multivitamins (Thera M Plus) 1 tab DAILY 08/05/18 15:00 08/10/18 08:52 1 TAB Non-Formulary Medication (Amlodipine Besylate/ Benazepril (Amlodipine-Benazepril 5-20 Mg)) 1 cap DAILY 08/06/18 09:00 UNV Non-Formulary Medication (Liraglutide (Victoza 3-Yaniv)) 1.8 mg DAILY 08/06/18 09:00 UNV Piperacillin Sod/ Tazobactam Sod (Zosyn Per Pharmacy) 1 each PRN DAILY PRN 08/05/18 13:45 Piperacillin Sod/ Tazobactam Sod 2.25 gm/Sodium Chloride 50 ml @ 100 mls/hr Q6HRS 08/08/18 18:00 08/10/18 06:02 100 MLS/HR Piperacillin Sod/ Tazobactam Sod 3.375 gm/Sodium Chloride 50 ml @ 100 mls/hr Q6HRS 08/05/18 14:30 08/08/18 13:10 DC 08/08/18 12:44 100 MLS/HR Pramipexole Dihydrochloride (miraPEX) 0.25 mg DAILY 08/05/18 15:00 08/10/18 08:51 0.25 MG Pregabalin (Lyrica) 150 mg BID 08/05/18 21:00 08/08/18 20:23 150 MG Prochlorperazine Edisylate (Compazine) 5 mg PACU PRN PRN 08/07/18 07:00 08/08/18 06:59 DC Ringer's Solution 1,000 ml @ 30 mls/hr Q24H 08/07/18 07:00 08/07/18 18:59 DC Saliva Substitute (Biotene Moisturizing Mouth) 1 spray BID 08/05/18 21:00 08/08/18 20:17 1 SPRAY Sodium Bicarbonate (Sodium Bicarbonate) 650 mg TID 08/05/18 15:00 08/10/18 08:52 650 MG Sodium Chloride 1,000 ml @ 100 mls/hr Q10H 08/05/18 15:00 08/10/18 06:06 100 MLS/HR Labs: Lab Laboratory Tests Test 08/09/18 11:34 08/09/18 16:21 08/09/18 20:29 08/10/18 04:03 Glucose (Fingerstick) 112 mg/dL (70-99) 138 mg/dL (70-99) 230 mg/dL (70-99) White Blood Count 7.8 x10^3/uL (4.0-11.0) Red Blood Count 3.15 x10^6/uL (3.50-5.40) Hemoglobin 8.1 g/dL (12.0-15.5) Hematocrit 24.8 % (36.0-47.0) Mean Corpuscular Volume 79 fL (79-100) Mean Corpuscular Hemoglobin 26 pg (25-35) Mean Corpuscular Hemoglobin Concent 33 g/dL (31-37) Red Cell Distribution Width 14.5 % (11.5-14.5) Platelet Count 225 x10^3/uL (140-400) Sodium Level 143 mmol/L (136-145) Potassium Level 4.1 mmol/L (3.5-5.1) Chloride Level 108 mmol/L (98-107) Carbon Dioxide Level 26 mmol/L (21-32) Anion Gap 9 (6-14) Blood Urea Nitrogen 48 mg/dL (7-20) Creatinine 2.6 mg/dL (0.6-1.0) Estimated GFR (Cockcroft-Gault) 18.6 Glucose Level 104 mg/dL (70-99) Calcium Level 8.5 mg/dL (8.5-10.1) Test 08/10/18 07:41 08/10/18 08:45 Glucose (Fingerstick) 66 mg/dL (70-99) 115 mg/dL (70-99) Objective: Assessment: 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
--- NOTE | 2018-08-10 16:21 | PDOC ---
PROGRESS NOTES Subjective Subjective Patient seen and examined in the room today, no new complaints She is sitting up in the chair next her hospital bed awake and alert and pleasant in no distress Objective Objective Vital Signs Date Time Temp Pulse Resp B/P (MAP) Pulse Ox O2 Delivery O2 Flow Rate FiO2 08/10/18 15:47 98.2 56 16 162/55 (90) 94 Room Air 98.2 08/09/18 15:00 2.0 Intake and Output 08/10/18 07:00 Intake Total 820 ml Balance 820 ml Intake Oral 820 ml # Voids 7 Physical Exam Physical Exam Left great toe has a bandage, discoloration, as previous documented Diagnosis DIAGNOSIS Atherosclerosis of ione arteries of left lower extremity with ulceration of left great toe Chronic kidney disease Plan Plan of Care She had successful recanalization the SFA and pop but still has tibial occlusive disease without in-line flow to the great toe We had planned on left groin antegrade access and possible tibial recanalization by her creatinine is still elevatedlikely acute on chronic. She has no sepsis no acute gangrene etc. there is no need for urgent intervention. We'll follow along and wait for her creatinine to return to baseline. Could perform her angiogram as an outpatient. I discussed all this and she expresses understanding and wishes to proceed with this plan Comment Review of Relevant I have reviewed the following items mimi (where applicable) has been applied. Labs Laboratory Tests Test 08/08/18 20:17 08/08/18 20:27 08/09/18 03:25 08/09/18 07:49 Clostridium difficile Toxin B Gene Negative (Negative) Glucose (Fingerstick) 164 mg/dL (70-99) 56 mg/dL (70-99) Sodium Level 139 mmol/L (136-145) Potassium Level 4.0 mmol/L (3.5-5.1) Chloride Level 105 mmol/L (98-107) Carbon Dioxide Level 23 mmol/L (21-32) Anion Gap 11 (6-14) Blood Urea Nitrogen 48 mg/dL (7-20) Creatinine 2.6 mg/dL (0.6-1.0) Estimated GFR (Cockcroft-Gault) 18.6 Glucose Level 75 mg/dL (70-99) Calcium Level 8.6 mg/dL (8.5-10.1) Test 08/09/18 11:34 08/09/18 16:21 08/09/18 20:29 08/10/18 04:03 Glucose (Fingerstick) 112 mg/dL (70-99) 138 mg/dL (70-99) 230 mg/dL (70-99) White Blood Count 7.8 x10^3/uL (4.0-11.0) Red Blood Count 3.15 x10^6/uL (3.50-5.40) Hemoglobin 8.1 g/dL (12.0-15.5) Hematocrit 24.8 % (36.0-47.0) Mean Corpuscular Volume 79 fL (79-100) Mean Corpuscular Hemoglobin 26 pg (25-35) Mean Corpuscular Hemoglobin Concent 33 g/dL (31-37) Red Cell Distribution Width 14.5 % (11.5-14.5) Platelet Count 225 x10^3/uL (140-400) Sodium Level 143 mmol/L (136-145) Potassium Level 4.1 mmol/L (3.5-5.1) Chloride Level 108 mmol/L (98-107) Carbon Dioxide Level 26 mmol/L (21-32) Anion Gap 9 (6-14) Blood Urea Nitrogen 48 mg/dL (7-20) Creatinine 2.6 mg/dL (0.6-1.0) Estimated GFR (Cockcroft-Gault) 18.6 Glucose Level 104 mg/dL (70-99) Calcium Level 8.5 mg/dL (8.5-10.1) Test 08/10/18 07:41 08/10/18 08:45 08/10/18 10:55 Glucose (Fingerstick) 66 mg/dL (70-99) 115 mg/dL (70-99) 96 mg/dL (70-99) Laboratory Tests Test 08/09/18 16:21 08/09/18 20:29 08/10/18 04:03 08/10/18 07:41 Glucose (Fingerstick) 138 mg/dL (70-99) 230 mg/dL (70-99) 66 mg/dL (70-99) White Blood Count 7.8 x10^3/uL (4.0-11.0) Red Blood Count 3.15 x10^6/uL (3.50-5.40) Hemoglobin 8.1 g/dL (12.0-15.5) Hematocrit 24.8 % (36.0-47.0) Mean Corpuscular Volume 79 fL (79-100) Mean Corpuscular Hemoglobin 26 pg (25-35) Mean Corpuscular Hemoglobin Concent 33 g/dL (31-37) Red Cell Distribution Width 14.5 % (11.5-14.5) Platelet Count 225 x10^3/uL (140-400) Sodium Level 143 mmol/L (136-145) Potassium Level 4.1 mmol/L (3.5-5.1) Chloride Level 108 mmol/L (98-107) Carbon Dioxide Level 26 mmol/L (21-32) Anion Gap 9 (6-14) Blood Urea Nitrogen 48 mg/dL (7-20) Creatinine 2.6 mg/dL (0.6-1.0) Estimated GFR (Cockcroft-Gault) 18.6 Glucose Level 104 mg/dL (70-99) Calcium Level 8.5 mg/dL (8.5-10.1) Test 08/10/18 08:45 08/10/18 10:55 Glucose (Fingerstick) 115 mg/dL (70-99) 96 mg/dL (70-99) Medications Current Medications Aspirin (Ecotrin) 81 mg DAILY PO Last administered on 08/10/18at 08:48; Start at 15:00 Atorvastatin Calcium (Lipitor) 40 mg HS PO Last administered on 08/09/18at 20:46 ; Start 08/05/18 at 21:00 Carvedilol (Coreg) 3.125 mg BIDWMEALS PO ; Start 08/05/18 at 17:00; Status UNV Lisinopril (Prinivil) 40 mg DAILY PO ; Start 08/05/18 at 15:00; Stop 08/05/18 at 17:02; Status DC Metoprolol Tartrate (Lopressor) 12.5 mg BID PO Last administered on 08/10/18at 08:49; Start 08/05/18 at 21:00 Sodium Bicarbonate (Sodium Bicarbonate) 650 mg TID PO Last administered on 08/10at 13:12; Start 08/05/18 at 15:00 Non-Formulary Medication (Amlodipine Besylate/ Benazepril (Amlodipine- Benazepril 5-20 Mg)) 1 cap DAILY PO ; Start 08/06/18 at 09:00; Status UNV Insulin Glargine (Lantus) 20 units DAILY SQ ; Start 08/05/18 at 15:00; Stop 02/13 at 15:00; Status DC Levothyroxine Sodium (Synthroid) 25 mcg DAILY06 PO Last administered on 05:56; Start 08/05/18 at 15:00 Levothyroxine Sodium (Synthroid) 200 mcg DAILY06 PO Last administered on 05:56; Start 08/05/18 at 15:00 Non-Formulary Medication (Liraglutide (Victoza 3-Yaniv)) 1.8 mg DAILY SQ ; Start 08/06/18 at 09:00; Status UNV Metolazone (Zaroxolyn) 5 mg DAILY PO ; Start 08/05/18 at 15:00; Stop 08/05/18 at 17:02; Status DC Multivitamins (Thera M Plus) 1 tab DAILY PO Last administered on 08/10/18 08: 52; Start 08/05/18 at 15:00 Pramipexole Dihydrochloride (miraPEX) 0.25 mg DAILY PO Last administered on 08:51; Start 08/05/18 at 15:00 Pregabalin (Lyrica) 150 mg BID PO Last administered on 08/08/18 20:23; Start 08/05/18 at 21:00 Saliva Substitute (Biotene Moisturizing Mouth) 1 spray BID PO Last administered on 08/08/18 20:17; Start 08/05/18 at 21:00 Piperacillin Sod/ Tazobactam Sod (Zosyn Per Pharmacy) 1 each PRN DAILY PRN MC SEE COMMENTS; Start 08/05/18 at 13:45 Piperacillin Sod/ Tazobactam Sod 3.375 gm/Sodium Chloride 50 ml @ 100 mls/hr Q6HRS IV Last administered on 08/08/18 12:44; Start 08/05/18 at 14:30; Stop at 13:10; Status DC Amlodipine Besylate (Norvasc) 5 mg DAILY PO Last administered on 08/10/18 08: 52; Start 08/05/18 at 15:00 Insulin Glargine (Lantus) 20 units HS SQ Last administered on 08/09/18at 20:58; Start 08/05/18 at 21:00 Sodium Chloride 1,000 ml @ 100 mls/hr Q10H IV Last administered on 08/10/18at 15:34; Start 08/05/18 at 15:00 Lisinopril (Prinivil) 40 mg DAILY PO ; Start 08/08/18 at 09:00; Stop 08/08/18 at 09:00; Status DC Metolazone (Zaroxolyn) 5 mg DAILY PO ; Start 08/08/18 at 09:00; Stop 08/08/18 at 09:00; Status DC Acetaminophen (Tylenol) 325 mg PRN Q6HRS PRN PO MILD PAIN / TEMP; Start at 18:30; Status UNV Acetaminophen (Tylenol) 650 mg PRN Q6HRS PRN PO pain; Start 08/05/18 at 18:30; Status UNV Acetaminophen (Tylenol) 650 mg PRN Q6HRS PRN PO MODERATE PAIN Last administered on 08/07/18at 20:58; Start 08/05/18 at 18:30 Acetaminophen (Tylenol) 325 mg PRN Q6HRS PRN PO MILD PAIN / TEMP; Start at 18:30 Fentanyl Citrate (Fentanyl 2ml Vial) 25 mcg PRN Q5MIN PRN IV MILD PAIN; Start 08/07/18 at 07:00; Stop 08/08/18 at 06:59; Status DC Fentanyl Citrate (Fentanyl 2ml Vial) 50 mcg PRN Q5MIN PRN IV MODERATE TO SEVERE PAIN; Start 08/07/18 at 07:00; Stop 08/08/18 at 06:59; Status DC Morphine Sulfate (Morphine Sulfate) 1 mg PRN Q10MIN PRN IV SEVERE PAIN; Start 08/07/18 at 07:00; Stop 08/08/18 at 06:59; Status DC Ringer's Solution 1,000 ml @ 30 mls/hr Q24H IV ; Start 08/07/18 at 07:00; Stop 08/07/18 at 18:59; Status DC Lidocaine HCl (Xylocaine-Mpf 1% 2ml Vial) 2 ml PRN 1X PRN ID PRIOR TO IV START ; Start 08/07/18 at 07:00; Stop 08/08/18 at 06:59; Status DC Hydromorphone HCl (Dilaudid) 0.5 mg PRN Q10MIN PRN IV SEV PAIN, Second choice; Start 08/07/18 at 07:00; Stop 08/08/18 at 06:59; Status DC Prochlorperazine Edisylate (Compazine) 5 mg PACU PRN PRN IV NAUSEA, MRX1; Start 08/07/18 at 07:00; Stop 08/08/18 at 06:59; Status DC Cefazolin Sodium 1 gm/Sodium Chloride 250 ml @ 250 mls/hr 1X ONCE IV ; Start 08/07/18 at 06:00; Stop 08/07/18 at 06:59; Status DC Dextrose (Dextrose 50%-Water Syringe) 25 gm STK-MED ONCE IV ; Start 08/06/18 at 11:29; Stop 08/06/18 at 11:30; Status DC Dextrose (Dextrose 50%-Water Syringe) 25 gm 1X ONCE IV Last administered on 03/16at 11:40; Start 08/06/18 at 11:45; Stop 08/06/18 at 11:46; Status DC Iodixanol (Visipaque 320) 100 ml STK-MED ONCE .ROUTE ; Start 08/06/18 at 12:54; Stop 08/06/18 at 12:55; Status DC Lidocaine/Sodium Bicarbonate (Buffered Lidocaine 1%) 3 ml STK-MED ONCE .ROUTE ; Start 08/06/18 at 12:55; Stop 08/06/18 at 12:56; Status DC Heparin Sodium/ Sodium Chloride 1,500 ml @ As Directed STK-MED ONCE .ROUTE ; Start 08/06/18 at 12:55; Stop 08/06/18 at 12:56; Status DC Midazolam HCl (Versed) 2 mg STK-MED ONCE .ROUTE ; Start 08/06/18 at 13:10; Stop 08/06/18 at 13:11; Status DC Fentanyl Citrate (Fentanyl 2ml Vial) 100 mcg STK-MED ONCE .ROUTE ; Start at 13:10; Stop 08/06/18 at 13:11; Status DC Heparin Sodium (Porcine) (Heparin Sodium) 10,000 unit STK-MED ONCE .ROUTE ; Start 08/06/18 at 13:10; Stop 08/06/18 at 13:11; Status DC Heparin Sodium/ Sodium Chloride (HEPARIN for ARTERIAL LINE FLUSH) 1,000 unit 1X ONCE IART Last administered on 08/06/18at 13:15; Start 08/06/18 at 13:15; Stop 08/06/18 at 13:16; Status DC Lidocaine/Sodium Bicarbonate (Buffered Lidocaine 1%) 3 ml 1X ONCE IJ Last administered on 08/06/18at 13:15; Start 08/06/18 at 13:15; Stop 08/06/18 at 13:16 ; Status DC Midazolam HCl (Versed) 2 mg 1X ONCE IV Last administered on 08/06/18at 13:15; Start 08/06/18 at 13:15; Stop 08/06/18 at 13:16; Status DC Fentanyl Citrate (Fentanyl 2ml Vial) 100 mcg 1X ONCE IV Last administered on at 13:15; Start 08/06/18 at 13:15; Stop 08/06/18 at 13:16; Status DC Iodixanol (Visipaque 320) 100 ml 1X ONCE IART Last administered on 08/06/18at 13:15; Start 08/06/18 at 13:15; Stop 08/06/18 at 13:16; Status DC Heparin Sodium (Porcine) (Heparin Sodium) 5,000 unit 1X ONCE IV Last administered on 08/06/18 14:00; Start 08/06/18 at 14:00; Stop 08/06/18 at 14:01 ; Status DC Hydralazine HCl (Apresoline Inj) 20 mg STK-MED ONCE .ROUTE ; Start 08/06/18 at 14:27; Stop 08/06/18 at 14:28; Status DC Hydralazine HCl (Apresoline Inj) 10 mg 1X ONCE IVP Last administered on at 14:30; Start 08/06/18 at 14:30; Stop 08/06/18 at 14:33; Status DC Insulin Human Lispro (HumaLOG) 0-7 UNITS TIDWMEALS SQ Last administered on 08/08at 17:23; Start 08/06/18 at 18:00 Dextrose (Dextrose 50%-Water Syringe) 12.5 gm PRN Q15MIN PRN IV SEE COMMENTS Last administered on 08/10/18 08:21; Start 08/06/18 at 17:45 Lactobacillus Rhamnosus (Culturelle) 1 cap BID PO Last administered on at 08:47; Start 08/07/18 at 14:00 Piperacillin Sod/ Tazobactam Sod 2.25 gm/Sodium Chloride 50 ml @ 100 mls/hr Q6HRS IV Last administered on 08/10/18at 12:11; Start 08/08/18 at 18:00 Active Scripts Active Reported Cipro (Ciprofloxacin Hcl) 250 Mg Tablet 250 Mg PO BID 7 Days Bactrim Ds Tablet (Sulfamethoxazole/Trimethoprim) 1 Each Tablet 1 Each PO BID Lidocaine 1 Each Adh..patch 1 Each TP DAILY Levothyroxine Sodium 25 Mcg Tablet 25 Mcg PO DAILYAC Levothyroxine Sodium 200 Mcg Tablet 200 Mcg PO DAILYAC Metolazone 5 Mg Tablet 5 Mg PO DAILY Biotene Oralbalance (Saliva Stimulant Agents Comb.2) 44.3 Ml Liquid 44.3 Ml MM BID Tresiba Flextouch U-200 (Insulin Degludec) 200 Unit/1 Ml Insuln.pen 20 Unit SQ DAILY Metoprolol Tartrate 25 Mg Tablet 12.5 Mg PO BID Lisinopril 40 Mg Tablet 40 Mg PO DAILY Metformin Hcl 500 Mg Tablet 500 Mg PO DAILYWBKFT Lyrica (Pregabalin) 150 Mg Capsule 150 Mg PO BID 30 Days Amlodipine-Benazepril 5-20 Mg (Amlodipine Besylate/Benazepril) 1 Each Capsule 1 Cap PO DAILY Sodium Bicarbonate 650 Mg Tablet 650 Mg PO TID Mirapex (Pramipexole Di-Hcl) 0.25 Mg Tablet 1 Tab PO DAILY Multivitamins (Multivitamin) 1 Each Tablet 1 Tab PO DAILY Victoza 3-Yaniv (Liraglutide) 0.6 Mg/0.1 Ml Pen.injctr 1.8 Mg SQ DAILY Carvedilol (Carvedilol) 3.125 Mg Tablet 1 Tab PO BID Aspir 81 (Aspirin) 81 Mg Tablet. 81 Mg PO Atorvastatin Calcium 40 Mg Tablet 40 Mg PO HS Vitals/I & O Vital Sign - Last 24 Hours 08/09/18 08/09/18 08/09/18 08/09/18 19:00 20:00 20:47 23:01 Temp 99.2 98.6 99.2 98.6 Pulse 64 64 64 Resp 20 20 B/P (MAP) 169/58 (95) 169/58 171/74 (106) Pulse Ox 93 93 O2 Delivery Room Air Room Air Room Air 08/10/18 08/10/18 08/10/18 08/10/18 03:03 07:00 08:00 08:49 Temp 99.7 98.7 99.7 98.7 Pulse 63 53 53 Resp 20 16 B/P (MAP) 173/52 (92) 162/49 (86) 162/49 Pulse Ox 93 94 O2 Delivery Room Air Room Air Room Air 08/10/18 08/10/18 08/10/18 08/10/18 08:52 11:00 15:00 15:47 Temp 98.4 98.2 98.2 98.4 98.2 98.2 Pulse 53 52 56 56 Resp 16 16 16 B/P (MAP) 162/49 141/40 (73) 162/55 (90) 162/55 (90) Pulse Ox 92 94 94 O2 Delivery Room Air Room Air Room Air Intake and Output 08/09/18 08/09/18 08/10/18 15:00 23:00 07:00 Intake Total 580 ml 240 ml Balance 580 ml 240 ml HAN GONZALEZ MD Aug 10, 2018 16:21
--- NOTE | 2018-08-10 17:22 | PDOC ---
PROGRESS NOTES Subjective Hypoglycemic this am, vascular procedure cancelled due to ongoing JACKI Objective Afebrile General: comfortable Heart: RRR Lungs: CTA Abd: soft and non tender Ext: left 1st toe dressed but foot warm WBC: 7.8 Hgb: 8.1 K+: 4.1 Creat: 2.6/BUN: 48 Vital Signs Vital Signs Date Time Temp Pulse Resp B/P (MAP) Pulse Ox O2 Delivery O2 Flow Rate FiO2 08/10/18 15:47 98.2 56 16 162/55 (90) 94 Room Air 98.2 08/09/18 15:00 2.0 I & O Intake and Output 08/10/18 07:00 Intake Total 820 ml Balance 820 ml Intake Oral 820 ml # Voids 7 Assessment and Plan osteomyelitis of left 1st toe, exposed bone - continue IV abx, wound care PAD - arteriogram postponed CAD, s/p CABG CKD - due to contrast from studies, monitor, continue IV hydration, renal following, postponed vascular study Type 2 diabetes- on residential case manager insulin, SSI added, A1C not consistent with good control, reviewed diet choices, will decrease Lantus to 18 units due to am hypoglycemia Anemia - likely dilutional, no sign of active blood loss, check studies Nicolás HAMM MD Aug 10, 2018 17:22
[2018-08-10] MEDS: ATORVASTATIN CALCIUM 40 MG TABLET. PO SCH (21:03)
[2018-08-10] MEDS: ACETAMINOPHEN 325 MG TABLET. PO PRN (21:04)
[2018-08-10] MEDS: INSULIN GLARGINE 300 UNITS/3 ML INSULN.PEN. SQ SCH (21:09)
[2018-08-11] MEDS: IV NORMAL SALINE 1000ML BAG 1,000 ML IV SCH ×3 (01:00→13:40)
[2018-08-11 03:00] VITALS: BP 168/48
[2018-08-11 04:43] LABS: BASO # 0.1 x10^3/uL (0.0-0.2); BASO % 1 % (0-3); EOS # 0.4 x10^3/uL (0.0-0.7); EOS % 4 % (0-3); HEMATOCRIT 27.2 % (36.0-47.0); LYMPH # 1.6 x10^3/uL (1.0-4.8); LYMPH % 19 % (24-48); MEAN CORPUSCULAR HEMOGLOBIN 26 pg (25-35); MEAN CORPUSCULAR HGB CONC 33 g/dL (31-37); MEAN CORPUSCULAR VOLUME 79 fL (79-100); MONO # 0.7 x10^3/uL (0.0-1.1); MONO % 8 % (0-9); NEUT # 5.8 x10^3uL (1.8-7.7); NEUT % 67 % (31-73); PLATELET COUNT 247 x10^3/uL (140-400); RED BLOOD COUNT 3.45 x10^6/uL (3.50-5.40); RED CELL DISTRIBUTION WIDTH 14.3 % (11.5-14.5); RETIC COUNT 1.1 % (0.5-2.5); WHITE BLOOD COUNT 8.6 x10^3/uL (4.0-11.0)
[2018-08-11 05:24] LABS: CALCIUM 8.7 mg/dL (8.5-10.1); CREATININE 2.4 mg/dL (0.6-1.0); GFR 20.4
[2018-08-11] MEDS: LEVOTHYROXINE 25 MCG TABLET. PO SCH (05:44)
[2018-08-11] MEDS: LEVOTHYROXINE 100 MCG TABLET PO SCH (05:44)
[2018-08-11] MEDS: PIPERACILLIN/TAZOBACTAM 2.25 GM in IV NORMAL SALINE 50ML 50 ML IV SCH ×6 (05:44→23:47)
[2018-08-11] MEDS ORDERED: SALIVA STIMULANT AGENT 44ML SPRAY BOTTLE. PO PRN (05:45)
[2018-08-11 07:15] VITALS: BP 169/62
[2018-08-11] MEDS: INSULIN LISPRO 300 UNITS/3 ML INSULN.PEN. SQ SCH ×3 (07:36→16:54)
[2018-08-11] MEDS: LACTOBACILLUS RHAMNOSUS GG 1 CAPSULE. PO SCH ×2 (08:28→20:04)
[2018-08-11] MEDS: ASPIRIN ENTERIC COATED 81 MG TABLET.DR. PO SCH (08:29)
[2018-08-11] MEDS: METOPROLOL TART IMMED RELEASE 25 MG TABLET. PO SCH ×2 (08:30→20:04)
[2018-08-11] MEDS: PREGABALIN 75 MG CAPSULE PO SCH ×3 (08:32→20:04)
[2018-08-11] MEDS: PRAMIPEXOLE 0.25 MG TABLET. PO SCH (08:32)
[2018-08-11] MEDS: amLODIPine BESYLATE 5 MG TABLET PO SCH (08:33)
[2018-08-11] MEDS: MULTIVITAMIN with MINERAL TABLET. PO SCH (08:34)
[2018-08-11] MEDS: SODIUM BICARBONATE 650 MG TABLET. PO SCH ×3 (08:34→20:01)
[2018-08-11] MEDS ORDERED: amLODIPine BESYLATE 5 MG TABLET PO ONE (09:00)
[2018-08-11] MEDS: amLODIPine BESYLATE 10 MG TABLET PO SCH (09:02)
--- NOTE | 2018-08-11 10:59 | PDOC ---
SUBJECTIVE ROS No complaints today OBJECTIVE Vital Signs Vital Signs Date Time Temp Pulse Resp B/P (MAP) Pulse Ox O2 Delivery O2 Flow Rate FiO2 08/11/18 09:07 72 169/62 08/11/18 08:00 Room Air 08/11/18 07:15 98.7 16 98.7 08/11/18 03:00 96 I & 0 Intake and Output 08/11/18 06:59 Intake Total 480 ml Balance 480 ml Intake Oral 480 ml # Voids 8 # Bowel Movements 2 PHYSICAL EXAM Physical Exam GEN.: No apparent distress. HEENT: OM moist NECK: Supple. LUNGS: Clear to auscultation. HEART: RRR, S1, S2 present. ABDOMEN: Soft, nontender. EXTREMITIES: right foot dressed, erythema and edema of soft tissue present NEUROLOGIC: Grossly normal SKIN: No Rash - No Menjivar DIAGNOSIS/ASSESSMENT Assessment & Plan JACKI- Creat peaked at 2.6 (baseline 2.0)- down to 2.4 S/P Abdominal Aortogram 08/06 Holding metolazone and LE-I till renal function stabilizes Holding further Angio until Creat returns to baseline E-Lytes and acid base stable CKD stage 3 - baseline 2.0 Discussed Risk of YESSY at great length with patient and family at bedside Prior to Angio recommend IVF(Pre Procedure) , during and at least 12 hrs Post procedure , Hold Diuretics, LE-I/ARB Monitor for YESSY Lt Peripheral artery disease and left 1st toe gangrene Left exposed bone and cellulitis S/P Abdominal Aortogram 08/06-recanalization the SFA and pop Angiogram with possible tibial intervention will be scheduled after renal function improves followed by Left 1st toe amputation On antibiotics. CAD s/p CABG Anemia- Stable DM - On insulin COMMENT/RELEVANT DATA Meds Current Medications Medications (Trade) Dose Ordered Sig/Michelle Start Time Stop Time Status Last Admin Dose Admin Acetaminophen (Tylenol) 325 mg PRN Q6HRS PRN 08/05/18 18:30 Amlodipine Besylate (Norvasc) 5 mg 1X ONCE 08/11/18 09:00 08/11/18 09:01 DC 08/11/18 09:07 5 MG Aspirin (Ecotrin) 81 mg DAILY 08/05/18 15:00 08/11/18 08:29 81 MG Atorvastatin Calcium (Lipitor) 40 mg HS 08/05/18 21:00 08/10/18 21:03 40 MG Carvedilol (Coreg) 3.125 mg BIDWMEALS 08/05/18 17:00 UNV Cefazolin Sodium 1 gm/Sodium Chloride 250 ml @ 250 mls/hr 1X ONCE 08/07/18 06:00 08/07/18 06:59 DC Dextrose (Dextrose 50%-Water Syringe) 12.5 gm PRN Q15MIN PRN 08/06/18 17:45 08/10/18 08:21 12.5 GM Fentanyl Citrate (Fentanyl 2ml Vial) 100 mcg 1X ONCE 08/06/18 13:15 08/06/18 13:16 DC 08/06/18 13:15 75 MCG Heparin Sodium (Porcine) (Heparin Sodium) 5,000 unit 1X ONCE 08/06/18 14:00 08/06/18 14:01 DC 08/06/18 14:00 5,000 UNIT Heparin Sodium/ Sodium Chloride (HEPARIN for ARTERIAL LINE FLUSH) 1,000 unit 1X ONCE 08/06/18 13:15 08/06/18 13:16 DC 08/06/18 13:15 1,000 UNIT Hydralazine HCl (Apresoline Inj) 10 mg 1X ONCE 08/06/18 14:30 08/06/18 14:33 DC 08/06/18 14:30 10 MG Hydromorphone HCl (Dilaudid) 0.5 mg PRN Q10MIN PRN 08/07/18 07:00 08/08/18 06:59 DC Insulin Glargine (Lantus) 18 units HS 08/10/18 21:00 08/10/18 21:09 18 UNITS Insulin Human Lispro (HumaLOG) 0-7 UNITS TIDWMEALS 08/06/18 18:00 08/08/18 17:23 3 UNITS Iodixanol (Visipaque 320) 100 ml 1X ONCE 08/06/18 13:15 08/06/18 13:16 DC 08/06/18 13:15 30 ML Lactobacillus Rhamnosus (Culturelle) 1 cap BID 08/07/18 14:00 08/11/18 08:28 1 CAP Levothyroxine Sodium (Synthroid) 200 mcg DAILY06 08/05/18 15:00 08/11/18 05:44 200 MCG Lidocaine HCl (Xylocaine-Mpf 1% 2ml Vial) 2 ml PRN 1X PRN 08/07/18 07:00 08/08/18 06:59 DC Lidocaine/Sodium Bicarbonate (Buffered Lidocaine 1%) 3 ml 1X ONCE 08/06/18 13:15 08/06/18 13:16 DC 08/06/18 13:15 5 ML Lisinopril (Prinivil) 40 mg DAILY 08/08/18 09:00 08/08/18 09:00 DC Metolazone (Zaroxolyn) 5 mg DAILY 08/08/18 09:00 08/08/18 09:00 DC Metoprolol Tartrate (Lopressor) 12.5 mg BID 08/05/18 21:00 08/11/18 08:30 12.5 MG Midazolam HCl (Versed) 2 mg 1X ONCE 08/06/18 13:15 08/06/18 13:16 DC 08/06/18 13:15 1 MG Morphine Sulfate (Morphine Sulfate) 1 mg PRN Q10MIN PRN 08/07/18 07:00 08/08/18 06:59 DC Multivitamins (Thera M Plus) 1 tab DAILY 08/05/18 15:00 08/11/18 08:34 1 TAB Non-Formulary Medication (Amlodipine Besylate/ Benazepril (Amlodipine-Benazepril 5-20 Mg)) 1 cap DAILY 08/06/18 09:00 UNV Non-Formulary Medication (Liraglutide (Victoza 3-Yaniv)) 1.8 mg DAILY 08/06/18 09:00 UNV Piperacillin Sod/ Tazobactam Sod (Zosyn Per Pharmacy) 1 each PRN DAILY PRN 08/05/18 13:45 Piperacillin Sod/ Tazobactam Sod 2.25 gm/Sodium Chloride 50 ml @ 100 mls/hr Q6HRS 08/08/18 18:00 08/11/18 05:44 100 MLS/HR Piperacillin Sod/ Tazobactam Sod 3.375 gm/Sodium Chloride 50 ml @ 100 mls/hr Q6HRS 08/05/18 14:30 08/08/18 13:10 DC 08/08/18 12:44 100 MLS/HR Pramipexole Dihydrochloride (miraPEX) 0.25 mg DAILY 08/05/18 15:00 08/11/18 08:32 0.25 MG Pregabalin (Lyrica) 150 mg BID 08/05/18 21:00 08/08/18 20:23 150 MG Prochlorperazine Edisylate (Compazine) 5 mg PACU PRN PRN 08/07/18 07:00 08/08/18 06:59 DC Ringer's Solution 1,000 ml @ 30 mls/hr Q24H 08/07/18 07:00 08/07/18 18:59 DC Saliva Substitute (Biotene Moisturizing Mouth) 1 spray PRN BID PRN 08/11/18 05:45 Sodium Bicarbonate (Sodium Bicarbonate) 650 mg TID 08/05/18 15:00 08/11/18 08:34 650 MG Sodium Chloride 1,000 ml @ 100 mls/hr Q10H 08/05/18 15:00 08/11/18 03:03 100 MLS/HR Lab Laboratory Tests Test 08/10/18 10:55 08/10/18 16:32 08/10/18 20:50 08/11/18 04:20 Glucose (Fingerstick) 96 mg/dL (70-99) 148 mg/dL (70-99) 231 mg/dL (70-99) White Blood Count 8.6 x10^3/uL (4.0-11.0) Red Blood Count 3.45 x10^6/uL (3.50-5.40) Hemoglobin 9.0 g/dL (12.0-15.5) Hematocrit 27.2 % (36.0-47.0) Mean Corpuscular Volume 79 fL (79-100) Mean Corpuscular Hemoglobin 26 pg (25-35) Mean Corpuscular Hemoglobin Concent 33 g/dL (31-37) Red Cell Distribution Width 14.3 % (11.5-14.5) Platelet Count 247 x10^3/uL (140-400) Neutrophils (%) (Auto) 67 % (31-73) Lymphocytes (%) (Auto) 19 % (24-48) Monocytes (%) (Auto) 8 % (0-9) Eosinophils (%) (Auto) 4 % (0-3) Basophils (%) (Auto) 1 % (0-3) Neutrophils # (Auto) 5.8 x10^3uL (1.8-7.7) Lymphocytes # (Auto) 1.6 x10^3/uL (1.0-4.8) Monocytes # (Auto) 0.7 x10^3/uL (0.0-1.1) Eosinophils # (Auto) 0.4 x10^3/uL (0.0-0.7) Basophils # (Auto) 0.1 x10^3/uL (0.0-0.2) Reticulocyte Count (auto) 1.1 % (0.5-2.5) Sodium Level 142 mmol/L (136-145) Potassium Level 4.0 mmol/L (3.5-5.1) Chloride Level 105 mmol/L (98-107) Carbon Dioxide Level 26 mmol/L (21-32) Anion Gap 11 (6-14) Blood Urea Nitrogen 43 mg/dL (7-20) Creatinine 2.4 mg/dL (0.6-1.0) Estimated GFR (Cockcroft-Gault) 20.4 Glucose Level 74 mg/dL (70-99) Calcium Level 8.7 mg/dL (8.5-10.1) Iron Level 21 ug/dL (50-170) Total Iron Binding Capacity 191 ug/dL (250-450) Iron Saturation 11 % (15-34) Ferritin 214 ng/mL (8-252) Vitamin B12 Level 555 pg/mL (247-911) Test 08/11/18 07:11 08/11/18 07:39 Glucose (Fingerstick) 66 mg/dL (70-99) 93 mg/dL (70-99) Results All relevant outside records, renal labs, imaging studies, telemetry/EKG's were reviewed. DAVID BOWMAN MD Aug 11, 2018 10:59
[2018-08-11 11:17] VITALS: BP 150/66
--- NOTE | 2018-08-11 11:56 | PDOC ---
Infectious Disease Note Subjective: Subjective Comfortable, denies pain Had diarrhea off and on but improving Denies F/C/N/V ROS: ROS Negative except for above. Vital Signs: Vital Signs Vital Signs Date Time Temp Pulse Resp B/P (MAP) Pulse Ox O2 Delivery O2 Flow Rate FiO2 08/11/18 11:17 99.4 61 16 150/66 (94) Room Air 99.4 08/11/18 03:00 96 Physical Exam: PHYSICAL EXAM GENERAL: Propped up in bed, alert, crocheting HEENT: Oral cavity clear, partial in place NECK: Supple LUNGS: Clear. HEART: S1, S2 regular. ABDOMEN: Soft and nontender EXTREMITIES: No edema, cyanosis. left foot bandaged. DP difficult to palpate SKIN: Light rash dorsal accept right hand/fingers,improving. No warmth NEUROLOGIC: Alert and oriented x 3 Medications: Inpatient Meds: Current Medications Medications (Trade) Dose Ordered Sig/Michelle Start Time Stop Time Status Last Admin Dose Admin Acetaminophen (Tylenol) 325 mg PRN Q6HRS PRN 08/05/18 18:30 Amlodipine Besylate (Norvasc) 5 mg 1X ONCE 08/11/18 09:00 08/11/18 09:01 DC 08/11/18 09:07 5 MG Aspirin (Ecotrin) 81 mg DAILY 08/05/18 15:00 08/11/18 08:29 81 MG Atorvastatin Calcium (Lipitor) 40 mg HS 08/05/18 21:00 08/10/18 21:03 40 MG Carvedilol (Coreg) 3.125 mg BIDWMEALS 08/05/18 17:00 UNV Cefazolin Sodium 1 gm/Sodium Chloride 250 ml @ 250 mls/hr 1X ONCE 08/07/18 06:00 08/07/18 06:59 DC Dextrose (Dextrose 50%-Water Syringe) 12.5 gm PRN Q15MIN PRN 08/06/18 17:45 08/10/18 08:21 12.5 GM Fentanyl Citrate (Fentanyl 2ml Vial) 100 mcg 1X ONCE 08/06/18 13:15 08/06/18 13:16 DC 08/06/18 13:15 75 MCG Heparin Sodium (Porcine) (Heparin Sodium) 5,000 unit 1X ONCE 08/06/18 14:00 08/06/18 14:01 DC 08/06/18 14:00 5,000 UNIT Heparin Sodium/ Sodium Chloride (HEPARIN for ARTERIAL LINE FLUSH) 1,000 unit 1X ONCE 08/06/18 13:15 08/06/18 13:16 DC 08/06/18 13:15 1,000 UNIT Hydralazine HCl (Apresoline Inj) 10 mg 1X ONCE 08/06/18 14:30 08/06/18 14:33 DC 08/06/18 14:30 10 MG Hydromorphone HCl (Dilaudid) 0.5 mg PRN Q10MIN PRN 08/07/18 07:00 08/08/18 06:59 DC Insulin Glargine (Lantus) 18 units HS 08/10/18 21:00 08/10/18 21:09 18 UNITS Insulin Human Lispro (HumaLOG) 0-7 UNITS TIDWMEALS 08/06/18 18:00 08/08/18 17:23 3 UNITS Iodixanol (Visipaque 320) 100 ml 1X ONCE 08/06/18 13:15 08/06/18 13:16 DC 08/06/18 13:15 30 ML Lactobacillus Rhamnosus (Culturelle) 1 cap BID 08/07/18 14:00 08/11/18 08:28 1 CAP Levothyroxine Sodium (Synthroid) 200 mcg DAILY06 08/05/18 15:00 08/11/18 05:44 200 MCG Lidocaine HCl (Xylocaine-Mpf 1% 2ml Vial) 2 ml PRN 1X PRN 08/07/18 07:00 08/08/18 06:59 DC Lidocaine/Sodium Bicarbonate (Buffered Lidocaine 1%) 3 ml 1X ONCE 08/06/18 13:15 08/06/18 13:16 DC 08/06/18 13:15 5 ML Lisinopril (Prinivil) 40 mg DAILY 08/08/18 09:00 08/08/18 09:00 DC Metolazone (Zaroxolyn) 5 mg DAILY 08/08/18 09:00 08/08/18 09:00 DC Metoprolol Tartrate (Lopressor) 12.5 mg BID 08/05/18 21:00 08/11/18 08:30 12.5 MG Midazolam HCl (Versed) 2 mg 1X ONCE 08/06/18 13:15 08/06/18 13:16 DC 08/06/18 13:15 1 MG Morphine Sulfate (Morphine Sulfate) 1 mg PRN Q10MIN PRN 08/07/18 07:00 08/08/18 06:59 DC Multivitamins (Thera M Plus) 1 tab DAILY 08/05/18 15:00 08/11/18 08:34 1 TAB Non-Formulary Medication (Amlodipine Besylate/ Benazepril (Amlodipine-Benazepril 5-20 Mg)) 1 cap DAILY 08/06/18 09:00 UNV Non-Formulary Medication (Liraglutide (Victoza 3-Yaniv)) 1.8 mg DAILY 08/06/18 09:00 UNV Piperacillin Sod/ Tazobactam Sod (Zosyn Per Pharmacy) 1 each PRN DAILY PRN 08/05/18 13:45 Piperacillin Sod/ Tazobactam Sod 2.25 gm/Sodium Chloride 50 ml @ 100 mls/hr Q6HRS 08/08/18 18:00 08/11/18 05:44 100 MLS/HR Piperacillin Sod/ Tazobactam Sod 3.375 gm/Sodium Chloride 50 ml @ 100 mls/hr Q6HRS 08/05/18 14:30 08/08/18 13:10 DC 08/08/18 12:44 100 MLS/HR Pramipexole Dihydrochloride (miraPEX) 0.25 mg DAILY 08/05/18 15:00 08/11/18 08:32 0.25 MG Pregabalin (Lyrica) 150 mg BID 08/05/18 21:00 08/08/18 20:23 150 MG Prochlorperazine Edisylate (Compazine) 5 mg PACU PRN PRN 08/07/18 07:00 08/08/18 06:59 DC Ringer's Solution 1,000 ml @ 30 mls/hr Q24H 08/07/18 07:00 08/07/18 18:59 DC Saliva Substitute (Biotene Moisturizing Mouth) 1 spray PRN BID PRN 08/11/18 05:45 Sodium Bicarbonate (Sodium Bicarbonate) 650 mg TID 08/05/18 15:00 08/11/18 08:34 650 MG Sodium Chloride 1,000 ml @ 100 mls/hr Q10H 4/10/19 15:00 08/11/18 03:03 100 MLS/HR Labs: Lab Laboratory Tests Test 08/10/18 16:32 08/10/18 20:50 08/11/18 04:20 08/11/18 07:11 Glucose (Fingerstick) 148 mg/dL (70-99) 231 mg/dL (70-99) 66 mg/dL (70-99) White Blood Count 8.6 x10^3/uL (4.0-11.0) Red Blood Count 3.45 x10^6/uL (3.50-5.40) Hemoglobin 9.0 g/dL (12.0-15.5) Hematocrit 27.2 % (36.0-47.0) Mean Corpuscular Volume 79 fL (79-100) Mean Corpuscular Hemoglobin 26 pg (25-35) Mean Corpuscular Hemoglobin Concent 33 g/dL (31-37) Red Cell Distribution Width 14.3 % (11.5-14.5) Platelet Count 247 x10^3/uL (140-400) Neutrophils (%) (Auto) 67 % (31-73) Lymphocytes (%) (Auto) 19 % (24-48) Monocytes (%) (Auto) 8 % (0-9) Eosinophils (%) (Auto) 4 % (0-3) Basophils (%) (Auto) 1 % (0-3) Neutrophils # (Auto) 5.8 x10^3uL (1.8-7.7) Lymphocytes # (Auto) 1.6 x10^3/uL (1.0-4.8) Monocytes # (Auto) 0.7 x10^3/uL (0.0-1.1) Eosinophils # (Auto) 0.4 x10^3/uL (0.0-0.7) Basophils # (Auto) 0.1 x10^3/uL (0.0-0.2) Reticulocyte Count (auto) 1.1 % (0.5-2.5) Sodium Level 142 mmol/L (136-145) Potassium Level 4.0 mmol/L (3.5-5.1) Chloride Level 105 mmol/L (98-107) Carbon Dioxide Level 26 mmol/L (21-32) Anion Gap 11 (6-14) Blood Urea Nitrogen 43 mg/dL (7-20) Creatinine 2.4 mg/dL (0.6-1.0) Estimated GFR (Cockcroft-Gault) 20.4 Glucose Level 74 mg/dL (70-99) Calcium Level 8.7 mg/dL (8.5-10.1) Iron Level 21 ug/dL (50-170) Total Iron Binding Capacity 191 ug/dL (250-450) Iron Saturation 11 % (15-34) Ferritin 214 ng/mL (8-252) Vitamin B12 Level 555 pg/mL (247-911) Test 08/11/18 07:39 08/11/18 11:46 Glucose (Fingerstick) 93 mg/dL (70-99) 109 mg/dL (70-99) Objective: Assessment: Left big toe gangrene with 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 abrasion from scratch,improving Diarrhea c diff neg 08/10 Plan: Plan of Care Continue Zosyn, may need renal adjustment Awaiting angio some time later this week followed by amputation Local wound care D/W JACQUIE URRUTIA MD Aug 11, 2018 11:56
--- NOTE | 2018-08-11 14:09 | PDOC ---
PROGRESS NOTES Subjective She is having loose stools likely from IV antibiotics but her C.diff is negative. Her iron is low so will start iron but anemia better today and no evidence of acute blood loss. Renal function may be starting to improve but not good enough for additional contrast. Tolerating IV hydration without any CHF symptoms.. She was mildly hypoglycemic this am. Her Hydrangea gutierres caused a coughing fit earlier Objective Afebrile General: comfortable Heart: RRR Lungs: CTA Abd: soft, non tender Ext: toe unchanged WBC: 8.6 Hgb: 9 Creat: 2.4/ BUN 43 Vital Signs Vital Signs Date Time Temp Pulse Resp B/P (MAP) Pulse Ox O2 Delivery O2 Flow Rate FiO2 08/11/18 11:17 99.4 61 16 150/66 (94) Room Air 99.4 08/11/18 03:00 96 08/09/18 15:00 2.0 I & O Intake and Output 08/11/18 06:59 Intake Total 480 ml Balance 480 ml Intake Oral 480 ml # Voids 8 # Bowel Movements 2 Assessment and Plan osteomyelitis of left 1st toe, exposed bone - continue IV abx, wound care, maybe having loose stools due to antibiotic but C.diff negative and on Probiotic PAD - arteriogram postponed due to renal function CAD, s/p CABG CKD - due to contrast from studies, monitor, continue IV hydration, renal following, postponed vascular study Type 2 diabetes- on middle [employer] principal insulin, SSI added, A1C not consistent with good control, reviewed diet choices, will decrease Lantus to 16 units due to am hypoglycemia Anemia -iron deficient, add oral iron which may also help loose stools Nicolás HAMM MD Aug 11, 2018 14:09
[2018-08-11 15:35] VITALS: BP 157/51
--- NOTE | 2018-08-11 16:42 | PDOC ---
Provider Note Provider Note S: Pt seen today. She has no current complaints or questions. O: Left toe is stable. No acute gangrene or signs of sepsis. Cr 2.4 today A/P: Atherosclerosis of [place] arteries of left lower extremity with ulceration of left great toe - She had successful recanalization the SFA and pop but still has tibial occlusive disease without in-line flow to the great toe - should be on plavix, do not see contraindication, will initiate. - Awaiting nephrology ok to proceed with arteriogram with tibial intervention, left 2st toe amp to follow. Could perform her angiogram as an outpatient. - continue abx per YOMAIRA CHAPPELL Aug 11, 2018 16:42
[2018-08-11] MEDS: CLOPIDOGREL BISULFATE 75 MG TABLET PO SCH (17:46)
[2018-08-11] MEDS ORDERED: DARBEPOETIN ALFA 60 MCG/0.3 ML DISP.SYRIN. SQ ONE (18:30)
[2018-08-11 19:00] VITALS: BP 171/54
[2018-08-11] MEDS: ATORVASTATIN CALCIUM 40 MG TABLET. PO SCH (20:01)
[2018-08-11] MEDS: INSULIN GLARGINE 300 UNITS/3 ML INSULN.PEN. SQ SCH (21:09)
[2018-08-11 23:00] VITALS: BP 167/47
[2018-08-12 03:00] VITALS: BP 159/56
[2018-08-12] MEDS: LEVOTHYROXINE 25 MCG TABLET. PO SCH (05:53)
[2018-08-12] MEDS: LEVOTHYROXINE 100 MCG TABLET PO SCH (05:53)
[2018-08-12] MEDS: PIPERACILLIN/TAZOBACTAM 2.25 GM in IV NORMAL SALINE 50ML 50 ML IV SCH ×3 (05:55→17:15)
[2018-08-12] MEDS: IV NORMAL SALINE 1000ML BAG 1,000 ML IV SCH ×2 (05:59→17:16)
[2018-08-12 07:00] VITALS: BP 171/59
[2018-08-12 07:43] LABS: CALCIUM 8.6 mg/dL (8.5-10.1); CREATININE 2.6 mg/dL (0.6-1.0); GFR 18.6; POTASSIUM 3.8 mmol/L (3.5-5.1)
[2018-08-12] MEDS: INSULIN LISPRO 300 UNITS/3 ML INSULN.PEN. SQ SCH ×3 (07:48→17:19)
[2018-08-12] MEDS: amLODIPine BESYLATE 10 MG TABLET PO SCH (08:30)
[2018-08-12] MEDS: LACTOBACILLUS RHAMNOSUS GG 1 CAPSULE. PO SCH ×2 (08:30→20:33)
[2018-08-12] MEDS: MULTIVITAMIN with MINERAL TABLET. PO SCH (08:30)
[2018-08-12] MEDS: CLOPIDOGREL BISULFATE 75 MG TABLET PO SCH (08:30)
[2018-08-12] MEDS: ASPIRIN ENTERIC COATED 81 MG TABLET.DR. PO SCH (08:30)
[2018-08-12] MEDS: FERROUS SULFATE 325 MG TABLET. PO SCH (08:30)
[2018-08-12] MEDS: SODIUM BICARBONATE 650 MG TABLET. PO SCH ×3 (08:31→20:34)
[2018-08-12] MEDS: PREGABALIN 75 MG CAPSULE PO SCH ×2 (08:31→20:34)
[2018-08-12] MEDS: METOPROLOL TART IMMED RELEASE 25 MG TABLET. PO SCH ×2 (08:31→20:33)
[2018-08-12] MEDS: PRAMIPEXOLE 0.25 MG TABLET. PO SCH (08:31)
--- NOTE | 2018-08-12 09:00 | NUR ---
Spoke with RN and pt's creatine was still elevated and unsure regarding date of sx. Pt currently does not have skilled needs and independent with ADL's.
--- NOTE | 2018-08-12 09:12 | PDOC ---
Infectious Disease Note Subjective: Subjective Comfortable, denies pain Had diarrhea off and on but improving Had fever last night but pt says she felt fine, no chills, felt cool ,no nightsweats Denies N/V has dry cough Rash is improving ROS: ROS Negative except for above. Vital Signs: Vital Signs Vital Signs Date Time Temp Pulse Resp B/P (MAP) Pulse Ox O2 Delivery O2 Flow Rate FiO2 08/12/18 08:31 62 171/59 08/12/18 07:00 99.8 18 92 Room Air 99.8 Physical Exam: PHYSICAL EXAM GENERAL: Propped up in bed, alert, crocheting HEENT: Oral cavity clear, partial in place NECK: Supple LUNGS: Clear. HEART: S1, S2 regular. ABDOMEN: Soft and nontender EXTREMITIES: No edema, cyanosis. left foot bandaged. DP difficult to palpate SKIN: Light rash dorsal accept right hand/fingers,improving. No warmth NEUROLOGIC: Alert and oriented x 3 Medications: Inpatient Meds: Current Medications Medications (Trade) Dose Ordered Sig/Michelle Start Time Stop Time Status Last Admin Dose Admin Acetaminophen (Tylenol) 325 mg PRN Q6HRS PRN 08/05/18 18:30 Amlodipine Besylate (Norvasc) 5 mg 1X ONCE 08/11/18 09:00 08/11/18 09:01 DC 08/11/18 09:07 5 MG Aspirin (Ecotrin) 81 mg DAILY 08/05/18 15:00 08/12/18 08:30 81 MG Atorvastatin Calcium (Lipitor) 40 mg HS 08/05/18 21:00 08/11/18 20:01 40 MG Carvedilol (Coreg) 3.125 mg BIDWMEALS 08/05/18 17:00 UNV Cefazolin Sodium 1 gm/Sodium Chloride 250 ml @ 250 mls/hr 1X ONCE 08/07/18 06:00 08/07/18 06:59 DC Clopidogrel Bisulfate (Plavix) 75 mg DAILYWBKFT 08/11/18 17:00 08/12/18 08:30 75 MG Darbepoetin Galileo (Aranesp) 60 mcg 1X ONCE 08/11/18 18:30 08/11/18 18:31 DC 08/11/18 17:47 60 MCG Dextrose (Dextrose 50%-Water Syringe) 12.5 gm PRN Q15MIN PRN 08/06/18 17:45 08/10/18 08:21 12.5 GM Fentanyl Citrate (Fentanyl 2ml Vial) 100 mcg 1X ONCE 08/06/18 13:15 08/06/18 13:16 DC 08/06/18 13:15 75 MCG Ferrous Sulfate (Feosol) 325 mg DAILYWBKFT 08/12/18 08:00 08/12/18 08:30 325 MG Heparin Sodium (Porcine) (Heparin Sodium) 5,000 unit 1X ONCE 08/06/18 14:00 08/06/18 14:01 DC 08/06/18 14:00 5,000 UNIT Heparin Sodium/ Sodium Chloride (HEPARIN for ARTERIAL LINE FLUSH) 1,000 unit 1X ONCE 08/06/18 13:15 08/06/18 13:16 DC 08/06/18 13:15 1,000 UNIT Hydralazine HCl (Apresoline Inj) 10 mg 1X ONCE 08/06/18 14:30 08/06/18 14:33 DC 08/06/18 14:30 10 MG Hydromorphone HCl (Dilaudid) 0.5 mg PRN Q10MIN PRN 08/07/18 07:00 08/08/18 06:59 DC Insulin Glargine (Lantus) 18 units HS 08/10/18 21:00 08/11/18 21:09 18 UNITS Insulin Human Lispro (HumaLOG) 0-7 UNITS TIDWMEALS 08/06/18 18:00 08/08/18 17:23 3 UNITS Iodixanol (Visipaque 320) 100 ml 1X ONCE 08/06/18 13:15 08/06/18 13:16 DC 08/06/18 13:15 30 ML Lactobacillus Rhamnosus (Culturelle) 1 cap BID 08/07/18 14:00 08/12/18 08:30 1 CAP Levothyroxine Sodium (Synthroid) 200 mcg DAILY06 08/05/18 15:00 08/12/18 05:53 200 MCG Lidocaine HCl (Xylocaine-Mpf 1% 2ml Vial) 2 ml PRN 1X PRN 08/07/18 07:00 08/08/18 06:59 DC Lidocaine/Sodium Bicarbonate (Buffered Lidocaine 1%) 3 ml 1X ONCE 08/06/18 13:15 08/06/18 13:16 DC 08/06/18 13:15 5 ML Lisinopril (Prinivil) 40 mg DAILY 08/08/18 09:00 08/08/18 09:00 DC Metolazone (Zaroxolyn) 5 mg DAILY 08/08/18 09:00 08/08/18 09:00 DC Metoprolol Tartrate (Lopressor) 12.5 mg BID 08/05/18 21:00 08/12/18 08:31 12.5 MG Midazolam HCl (Versed) 2 mg 1X ONCE 08/06/18 13:15 08/06/18 13:16 DC 08/06/18 13:15 1 MG Morphine Sulfate (Morphine Sulfate) 1 mg PRN Q10MIN PRN 08/07/18 07:00 08/08/18 06:59 DC Multivitamins (Thera M Plus) 1 tab DAILY 08/05/18 15:00 08/12/18 08:30 1 TAB Non-Formulary Medication (Amlodipine Besylate/ Benazepril (Amlodipine-Benazepril 5-20 Mg)) 1 cap DAILY 08/06/18 09:00 UNV Non-Formulary Medication (Liraglutide (Victoza 3-Yaniv)) 1.8 mg DAILY 08/06/18 09:00 UNV Piperacillin Sod/ Tazobactam Sod (Zosyn Per Pharmacy) 1 each PRN DAILY PRN 08/05/18 13:45 Piperacillin Sod/ Tazobactam Sod 2.25 gm/Sodium Chloride 50 ml @ 100 mls/hr Q6HRS 08/08/18 18:00 08/12/18 05:55 100 MLS/HR Piperacillin Sod/ Tazobactam Sod 3.375 gm/Sodium Chloride 50 ml @ 100 mls/hr Q6HRS 08/05/18 14:30 08/08/18 13:10 DC 08/08/18 12:44 100 MLS/HR Pramipexole Dihydrochloride (miraPEX) 0.25 mg DAILY 08/05/18 15:00 08/12/18 08:31 0.25 MG Pregabalin (Lyrica) 150 mg BID 08/05/18 21:00 08/11/18 20:04 150 MG Prochlorperazine Edisylate (Compazine) 5 mg PACU PRN PRN 08/07/18 07:00 08/08/18 06:59 DC Ringer's Solution 1,000 ml @ 30 mls/hr Q24H 08/07/18 07:00 08/07/18 18:59 DC Saliva Substitute (Biotene Moisturizing Mouth) 1 spray PRN BID PRN 08/11/18 05:45 Sodium Bicarbonate (Sodium Bicarbonate) 650 mg TID 08/05/18 15:00 08/12/18 08:31 650 MG Sodium Chloride 1,000 ml @ 100 mls/hr Q10H 08/05/18 15:00 08/12/18 05:59 100 MLS/HR Labs: Lab Laboratory Tests Test 08/11/18 11:46 08/11/18 16:31 08/11/18 20:29 08/12/18 05:43 Glucose (Fingerstick) 109 mg/dL (70-99) 136 mg/dL (70-99) 156 mg/dL (70-99) Sodium Level 138 mmol/L (136-145) Potassium Level 3.8 mmol/L (3.5-5.1) Chloride Level 104 mmol/L (98-107) Carbon Dioxide Level 24 mmol/L (21-32) Anion Gap 10 (6-14) Blood Urea Nitrogen 45 mg/dL (7-20) Creatinine 2.6 mg/dL (0.6-1.0) Estimated GFR (Cockcroft-Gault) 18.6 Glucose Level 113 mg/dL (70-99) Calcium Level 8.6 mg/dL (8.5-10.1) Test 08/12/18 07:33 Glucose (Fingerstick) 103 mg/dL (70-99) Objective: Assessment: Left big toe gangrene with 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 abrasion from scratch,improving Diarrhea c diff neg 08/10 Fever 08/11 pt says felt cool,not hot Cough Plan: Plan of Care Continue Zosyn, may need renal adjustment Awaiting angio some time later this week followed by amputation Local wound care CXR Monitor fever pattern D/W sister D/W JACQUIE URRUTIA MD Aug 12, 2018 09:12
[2018-08-12 11:00] VITALS: BP 146/58
--- NOTE | 2018-08-12 14:29 | PDOC ---
Provider Note Provider Note AF VSS awake and alert left 1st toe cellulitis improved, dry gangrene of the distal toe, no swelling of the foot Cr 2.6 A/P 63 year old female with severe left leg peripheral artery disease and 1st toe gangrene/cellulitis - plan angiogram with possible tibial intervention when ok with nephrology. - antibiotics per ID - will need a left 1st toe amputation following revascularization CARMEN WILL MD Aug 12, 2018 14:29
[2018-08-12 15:00] VITALS: BP 150/64
--- NOTE | 2018-08-12 15:18 | RAD ---
CHEST PA LATERAL History: cough Comparison: None. Findings: The cardiomediastinal silhouette is normal. Pulmonary vessel transit the upper limit of normal. Small pleural effusions are noted. Mild pulmonary hyperinflation noted. Diffuse interstitial thickening is noted and may in part represent interstitial edema. No focal consolidation Calcified granuloma is present. Left lateral mid thoracic discoid atelectasis is present. Minimal blunting of the costophrenic angles bilaterally noted. There is no acute bone abnormality. IMPRESSION: Pulmonary interstitial thickening and costophrenic angle blunting. This may represent interstitial edema and small pleural effusions. Alternatively this may represent chronic findings associated with COPD. Electronically signed by: Jason Toney MD (08/12/2018 3:16 PM) [id number]
--- NOTE | 2018-08-12 15:41 | PDOC ---
SUBJECTIVE ROS No complaints today OBJECTIVE Vital Signs Vital Signs Date Time Temp Pulse Resp B/P (MAP) Pulse Ox O2 Delivery O2 Flow Rate FiO2 08/12/18 15:00 98.7 63 18 150/64 (92) 93 Room Air 98.7 I & 0 Intake and Output 08/12/18 06:59 Intake Total 580 ml Balance 580 ml Intake Oral 480 ml IV Total 100 ml # Voids 7 # Bowel Movements 4 PHYSICAL EXAM Physical Exam GEN.: No apparent distress. HEENT: OM moist NECK: Supple. LUNGS: Clear to auscultation. HEART: RRR, S1, S2 present. ABDOMEN: Soft, nontender. EXTREMITIES: right foot dressed, erythema and edema of soft tissue present NEUROLOGIC: Grossly normal SKIN: No Rash - No Menjivar DIAGNOSIS/ASSESSMENT Assessment & Plan JACKI- Creat peaked at 2.6 (baseline 2.0)- no improvement S/P Abdominal Aortogram 08/06 Holding metolazone and LE-I till renal function stabilizes Holding further Angio until Creat returns to baseline , Monitor not sure if new baseline E-Lytes and acid base stable CKD stage 3 - baseline 2.0 Discussed Risk of YESSY at great length with patient and family at bedside Prior to Angio recommend IVF(Pre Procedure) , during and at least 12 hrs Post procedure , Hold Diuretics, LE-I/ARB Monitor for YESSY Lt Peripheral artery disease and left 1st toe gangrene Left exposed bone and cellulitis S/P Abdominal Aortogram 08/06-recanalization the SFA and pop Angiogram with possible tibial intervention will be scheduled after renal function improves followed by Left 1st toe amputation On antibiotics. CAD s/p CABG Anemia- Stable DM - On insulin COMMENT/RELEVANT DATA Meds Current Medications Medications (Trade) Dose Ordered Sig/Michelle Start Time Stop Time Status Last Admin Dose Admin Acetaminophen (Tylenol) 325 mg PRN Q6HRS PRN 08/05/18 18:30 Amlodipine Besylate (Norvasc) 5 mg 1X ONCE 08/11/18 09:00 08/11/18 09:01 DC 08/11/18 09:07 5 MG Aspirin (Ecotrin) 81 mg DAILY 08/05/18 15:00 08/12/18 08:30 81 MG Atorvastatin Calcium (Lipitor) 40 mg HS 08/05/18 21:00 08/11/18 20:01 40 MG Carvedilol (Coreg) 3.125 mg BIDWMEALS 08/05/18 17:00 UNV Cefazolin Sodium 1 gm/Sodium Chloride 250 ml @ 250 mls/hr 1X ONCE 08/07/18 06:00 08/07/18 06:59 DC Clopidogrel Bisulfate (Plavix) 75 mg DAILYWBKFT 08/11/18 17:00 08/12/18 08:30 75 MG Darbepoetin Galileo (Aranesp) 60 mcg 1X ONCE 08/11/18 18:30 08/11/18 18:31 DC 08/11/18 17:47 60 MCG Dextrose (Dextrose 50%-Water Syringe) 12.5 gm PRN Q15MIN PRN 08/06/18 17:45 08/10/18 08:21 12.5 GM Fentanyl Citrate (Fentanyl 2ml Vial) 100 mcg 1X ONCE 08/06/18 13:15 08/06/18 13:16 DC 08/06/18 13:15 75 MCG Ferrous Sulfate (Feosol) 325 mg DAILYWBKFT 08/12/18 08:00 08/12/18 08:30 325 MG Heparin Sodium (Porcine) (Heparin Sodium) 5,000 unit 1X ONCE 08/06/18 14:00 08/06/18 14:01 DC 08/06/18 14:00 5,000 UNIT Heparin Sodium/ Sodium Chloride (HEPARIN for ARTERIAL LINE FLUSH) 1,000 unit 1X ONCE 08/06/18 13:15 08/06/18 13:16 DC 08/06/18 13:15 1,000 UNIT Hydralazine HCl (Apresoline Inj) 10 mg 1X ONCE 08/06/18 14:30 08/06/18 14:33 DC 08/06/18 14:30 10 MG Hydromorphone HCl (Dilaudid) 0.5 mg PRN Q10MIN PRN 08/07/18 07:00 08/08/18 06:59 DC Insulin Glargine (Lantus) 18 units HS 08/10/18 21:00 08/11/18 21:09 18 UNITS Insulin Human Lispro (HumaLOG) 0-7 UNITS TIDWMEALS 08/06/18 18:00 08/12/18 11:59 3 UNITS Iodixanol (Visipaque 320) 100 ml 1X ONCE 08/06/18 13:15 08/06/18 13:16 DC 08/06/18 13:15 30 ML Lactobacillus Rhamnosus (Culturelle) 1 cap BID 08/07/18 14:00 08/12/18 08:30 1 CAP Levothyroxine Sodium (Synthroid) 200 mcg DAILY06 08/05/18 15:00 08/12/18 05:53 200 MCG Lidocaine HCl (Xylocaine-Mpf 1% 2ml Vial) 2 ml PRN 1X PRN 08/07/18 07:00 08/08/18 06:59 DC Lidocaine/Sodium Bicarbonate (Buffered Lidocaine 1%) 3 ml 1X ONCE 08/06/18 13:15 08/06/18 13:16 DC 08/06/18 13:15 5 ML Lisinopril (Prinivil) 40 mg DAILY 08/08/18 09:00 08/08/18 09:00 DC Metolazone (Zaroxolyn) 5 mg DAILY 08/08/18 09:00 08/08/18 09:00 DC Metoprolol Tartrate (Lopressor) 12.5 mg BID 08/05/18 21:00 08/12/18 08:31 12.5 MG Midazolam HCl (Versed) 2 mg 1X ONCE 08/06/18 13:15 08/06/18 13:16 DC 08/06/18 13:15 1 MG Morphine Sulfate (Morphine Sulfate) 1 mg PRN Q10MIN PRN 08/07/18 07:00 08/08/18 06:59 DC Multivitamins (Thera M Plus) 1 tab DAILY 08/05/18 15:00 08/12/18 08:30 1 TAB Non-Formulary Medication (Amlodipine Besylate/ Benazepril (Amlodipine-Benazepril 5-20 Mg)) 1 cap DAILY 08/06/18 09:00 UNV Non-Formulary Medication (Liraglutide (Victoza 3-Yaniv)) 1.8 mg DAILY 08/06/18 09:00 UNV Piperacillin Sod/ Tazobactam Sod (Zosyn Per Pharmacy) 1 each PRN DAILY PRN 08/05/18 13:45 Piperacillin Sod/ Tazobactam Sod 2.25 gm/Sodium Chloride 50 ml @ 100 mls/hr Q6HRS 08/08/18 18:00 08/12/18 11:55 100 MLS/HR Piperacillin Sod/ Tazobactam Sod 3.375 gm/Sodium Chloride 50 ml @ 100 mls/hr Q6HRS 08/05/18 14:30 08/08/18 13:10 DC 08/08/18 12:44 100 MLS/HR Pramipexole Dihydrochloride (miraPEX) 0.25 mg DAILY 08/05/18 15:00 08/12/18 08:31 0.25 MG Pregabalin (Lyrica) 150 mg BID 08/05/18 21:00 08/11/18 20:04 150 MG Prochlorperazine Edisylate (Compazine) 5 mg PACU PRN PRN 08/07/18 07:00 08/08/18 06:59 DC Ringer's Solution 1,000 ml @ 30 mls/hr Q24H 08/07/18 07:00 08/07/18 18:59 DC Saliva Substitute (Biotene Moisturizing Mouth) 1 spray PRN BID PRN 08/11/18 05:45 Sodium Bicarbonate (Sodium Bicarbonate) 650 mg TID 08/05/18 15:00 08/12/18 13:35 650 MG Sodium Chloride 1,000 ml @ 100 mls/hr Q10H 08/05/18 15:00 08/12/18 05:59 100 MLS/HR Lab Laboratory Tests Test 08/11/18 16:31 08/11/18 20:29 08/12/18 05:43 08/12/18 07:33 Glucose (Fingerstick) 136 mg/dL (70-99) 156 mg/dL (70-99) 103 mg/dL (70-99) Sodium Level 138 mmol/L (136-145) Potassium Level 3.8 mmol/L (3.5-5.1) Chloride Level 104 mmol/L (98-107) Carbon Dioxide Level 24 mmol/L (21-32) Anion Gap 10 (6-14) Blood Urea Nitrogen 45 mg/dL (7-20) Creatinine 2.6 mg/dL (0.6-1.0) Estimated GFR (Cockcroft-Gault) 18.6 Glucose Level 113 mg/dL (70-99) Calcium Level 8.6 mg/dL (8.5-10.1) Test 08/12/18 11:49 Glucose (Fingerstick) 183 mg/dL (70-99) Results All relevant outside records, renal labs, imaging studies, telemetry/EKG's were reviewed. DAVID BOWMAN MD Aug 12, 2018 15:41
--- NOTE | 2018-08-12 16:16 | PDOC ---
PROGRESS NOTES Subjective She has developed a cough and CXR suggesting interstitial edema vs COPD changes. Still getting IV hydration without change in her renal function so she may be at new baseline. She is at risk for CHF from the fluids and renal disease. 101.3 temp this afternoon so likely from some atelectasis, doing IS though. Foot not visibly showing sing of worsening infection Objective Tmax 101.3 BP: [] General: NAD Heart: RRR, no S3, no S4 Lungs: no crackles or rhonchi or wheezes heard Abd: soft and non tender Ext: per photo, no edema Creat: 2.6 Vital Signs Vital Signs Date Time Temp Pulse Resp B/P (MAP) Pulse Ox O2 Delivery O2 Flow Rate FiO2 08/12/18 15:00 98.7 63 18 150/64 (92) 93 Room Air 98.7 08/09/18 15:00 2.0 I & O Intake and Output 08/12/18 06:59 Intake Total 580 ml Balance 580 ml Intake Oral 480 ml IV Total 100 ml # Voids 7 # Bowel Movements 4 Assessment and Plan osteomyelitis of left 1st toe, exposed bone - continue IV abx, wound care, maybe having loose stools due to antibiotic but C.diff negative and on Probiotic PAD - arteriogram postponed due to renal function CAD, s/p CABG CKD - due to contrast from studies, monitor, continue IV hydration, renal following, postponed vascular study Type 2 diabetes- on care home insulin, SSI added, A1C not consistent with good control, reviewed diet choices, will decrease Lantus to 16 units due to am hypoglycemia Anemia -iron deficient, add oral iron which may also help loose stools fever - check cultures, check CXR, monitor CBC cough - add neb tx, Mucinex DM, Abel, IS Nicolás HAMM MD Aug 12, 2018 16:16
[2018-08-12] MEDS: IPRATRPIUM/ALBUTEROL 0.5/2.5MG 3 ML NEBU. NEB SCH ×2 (16:58→19:33)
[2018-08-12] MEDS: BENZONATATE 100 MG CAPSULE. PO SCH ×2 (17:15→20:30)
[2018-08-12 19:00] VITALS: BP 167/78
[2018-08-12] MEDS: guaiFENesin DM 600/30MG 1 TAB TAB.ER.12H PO SCH (20:30)
[2018-08-12] MEDS: ATORVASTATIN CALCIUM 40 MG TABLET. PO SCH (20:34)
[2018-08-12] MEDS: INSULIN GLARGINE 300 UNITS/3 ML INSULN.PEN. SQ SCH (20:43)
[2018-08-12 23:00] VITALS: BP 151/61
[2018-08-12] MEDS: ACETAMINOPHEN 325 MG TABLET. PO PRN (23:02)
[2018-08-13] MEDS: PIPERACILLIN/TAZOBACTAM 2.25 GM in IV NORMAL SALINE 50ML 50 ML IV SCH ×2 (00:18→06:08)
[2018-08-13 03:00] VITALS: BP 112/57
[2018-08-13 03:51] LABS: BASO # 0.1 x10^3/uL (0.0-0.2); BASO % 1 % (0-3); EOS % 1 % (0-3); HEMATOCRIT 22.5 % (36.0-47.0); HEMOGLOBIN 7.5 g/dL (12.0-15.5); LYMPH # 0.8 x10^3/uL (1.0-4.8); LYMPH % 8 % (24-48); MEAN CORPUSCULAR HEMOGLOBIN 26 pg (25-35); MEAN CORPUSCULAR HGB CONC 33 g/dL (31-37); MEAN CORPUSCULAR VOLUME 79 fL (79-100); MONO # 0.6 x10^3/uL (0.0-1.1); MONO % 6 % (0-9); NEUT # 7.6 x10^3uL (1.8-7.7); NEUT % 84 % (31-73); PLATELET COUNT 189 x10^3/uL (140-400); RED BLOOD COUNT 2.85 x10^6/uL (3.50-5.40); RED CELL DISTRIBUTION WIDTH 14.7 % (11.5-14.5)
[2018-08-13] MEDS: IV NORMAL SALINE 1000ML BAG 1,000 ML IV SCH ×3 (03:55→23:00)
[2018-08-13 04:03] LABS: CALCIUM 8.2 mg/dL (8.5-10.1); CREATININE 2.8 mg/dL (0.6-1.0); GFR 17.1; POTASSIUM 4.2 mmol/L (3.5-5.1)
[2018-08-13] MEDS: LEVOTHYROXINE 25 MCG TABLET. PO SCH (06:08)
[2018-08-13] MEDS: LEVOTHYROXINE 100 MCG TABLET PO SCH (06:09)
[2018-08-13 07:00] VITALS: BP 144/59
[2018-08-13] MEDS: IPRATRPIUM/ALBUTEROL 0.5/2.5MG 3 ML NEBU. NEB SCH ×4 (07:21→20:54)
[2018-08-13] MEDS: CLOPIDOGREL BISULFATE 75 MG TABLET PO SCH (08:32)
[2018-08-13] MEDS: LACTOBACILLUS RHAMNOSUS GG 1 CAPSULE. PO SCH ×2 (08:32→20:42)
[2018-08-13] MEDS: FERROUS SULFATE 325 MG TABLET. PO SCH (08:32)
[2018-08-13] MEDS: ASPIRIN ENTERIC COATED 81 MG TABLET.DR. PO SCH (08:32)
[2018-08-13] MEDS: METOPROLOL TART IMMED RELEASE 25 MG TABLET. PO SCH ×2 (08:34→20:41)
[2018-08-13] MEDS: guaiFENesin DM 600/30MG 1 TAB TAB.ER.12H PO SCH ×2 (08:35→20:42)
[2018-08-13] MEDS: PRAMIPEXOLE 0.25 MG TABLET. PO SCH (08:35)
[2018-08-13] MEDS: PREGABALIN 75 MG CAPSULE PO SCH ×2 (08:35→20:40)
[2018-08-13] MEDS: SODIUM BICARBONATE 650 MG TABLET. PO SCH ×3 (08:36→20:40)
[2018-08-13] MEDS: amLODIPine BESYLATE 10 MG TABLET PO SCH (08:36)
[2018-08-13] MEDS: BENZONATATE 100 MG CAPSULE. PO SCH ×3 (08:36→20:40)
[2018-08-13] MEDS: MULTIVITAMIN with MINERAL TABLET. PO SCH (08:36)
--- NOTE | 2018-08-13 08:59 | RAD ---
Portable chest, 08/13/2018: HISTORY: Fever Comparison is made yesterday study. The heart size is normal. Bibasilar linear opacities suggesting atelectasis and/or scarring are unchanged. There is a mild retrocardiac left basilar opacity suggesting atelectasis/infiltrate. There is minimal unchanged basilar interstitial prominence. A faint unchanged nodular opacity is projected over the right upper chest laterally. There is unchanged blunting of the lateral costophrenic angles which may be due to scarring or a tiny amount pleural fluid. IMPRESSION: Persistent bilateral pulmonary opacities suggesting atelectasis/infiltrate superimposed upon scarring. Electronically signed by: Ricardo Carlson MD (08/13/2018 8:56 AM) [facility]
[2018-08-13] MEDS: INSULIN LISPRO 300 UNITS/3 ML INSULN.PEN. SQ SCH ×3 (09:25→17:17)
--- NOTE | 2018-08-13 09:56 | PDOC ---
Infectious Disease Note Subjective: Subjective Pt continues to remain febrile diarrhea resolved Had fever last night again, now afebrile Denies N/V has dry cough Rash on rt hand is improving has some rt ankle pain but able to bear wt ROS: ROS Negative except for above. Vital Signs: Vital Signs Vital Signs Date Time Temp Pulse Resp B/P (MAP) Pulse Ox O2 Delivery O2 Flow Rate FiO2 08/13/18 08:36 84 144/59 08/13/18 07:24 90 Room Air 08/13/18 07:00 97.9 16 97.9 Physical Exam: PHYSICAL EXAM GENERAL: Propped up in chair alert oriented x3 HEENT: Oral cavity clear, partial in place NECK: Supple LUNGS: Clear. HEART: S1, S2 regular. ABDOMEN: Soft and nontender EXTREMITIES: Lt leg trace edema, cyanosis. left foot dressing taken down, no worsening of toe wound. DP difficult to palpate SKIN: Light rash dorsal accept right hand/fingers,improving. No warmth NEUROLOGIC: Alert and oriented x 3 Medications: Inpatient Meds: Current Medications Medications (Trade) Dose Ordered Sig/Michelle Start Time Stop Time Status Last Admin Dose Admin Acetaminophen (Tylenol) 325 mg PRN Q6HRS PRN 08/05/18 18:30 08/12/18 23:02 325 MG Albuterol/ Ipratropium (Duoneb) 3 ml RTQID 08/12/18 16:15 08/13/18 07:21 3 ML Amlodipine Besylate (Norvasc) 5 mg 1X ONCE 08/11/18 09:00 08/11/18 09:01 DC 08/11/18 09:07 5 MG Aspirin (Ecotrin) 81 mg DAILY 08/05/18 15:00 08/13/18 08:32 81 MG Atorvastatin Calcium (Lipitor) 40 mg HS 08/05/18 21:00 08/12/18 20:34 40 MG Benzonatate (Tessalon Perle) 100 mg [id number] 08/12/18 16:15 08/13/18 08:36 100 MG Carvedilol (Coreg) 3.125 mg BIDWMEALS 08/05/18 17:00 UNV Cefazolin Sodium 1 gm/Sodium Chloride 250 ml @ 250 mls/hr 1X ONCE 08/07/18 06:00 08/07/18 06:59 DC Clopidogrel Bisulfate (Plavix) 75 mg DAILYWBKFT 08/11/18 17:00 08/13/18 08:32 75 MG Darbepoetin Galileo (Aranesp) 60 mcg 1X ONCE 08/11/18 18:30 08/11/18 18:31 DC 08/11/18 17:47 60 MCG Dextrose (Dextrose 50%-Water Syringe) 12.5 gm PRN Q15MIN PRN 08/06/18 17:45 08/10/18 08:21 12.5 GM Fentanyl Citrate (Fentanyl 2ml Vial) 100 mcg 1X ONCE 08/06/18 13:15 08/06/18 13:16 DC 08/06/18 13:15 75 MCG Ferrous Sulfate (Feosol) 325 mg DAILYWBKFT 08/12/18 08:00 08/13/18 08:32 325 MG Guaifenesin (MUCINEX ER with DM) 1 tab BID 08/12/18 21:00 08/13/18 08:35 1 TAB Heparin Sodium (Porcine) (Heparin Sodium) 5,000 unit 1X ONCE 08/06/18 14:00 08/06/18 14:01 DC 08/06/18 14:00 5,000 UNIT Heparin Sodium/ Sodium Chloride (HEPARIN for ARTERIAL LINE FLUSH) 1,000 unit 1X ONCE 08/06/18 13:15 08/06/18 13:16 DC 08/06/18 13:15 1,000 UNIT Hydralazine HCl (Apresoline Inj) 10 mg 1X ONCE 08/06/18 14:30 08/06/18 14:33 DC 08/06/18 14:30 10 MG Hydromorphone HCl (Dilaudid) 0.5 mg PRN Q10MIN PRN 08/07/18 07:00 08/08/18 06:59 DC Insulin Glargine (Lantus) 18 units HS 08/10/18 21:00 08/12/18 20:43 18 UNITS Insulin Human Lispro (HumaLOG) 0-7 UNITS TIDWMEALS 08/06/18 18:00 08/13/18 09:25 3 UNITS Iodixanol (Visipaque 320) 100 ml 1X ONCE 08/06/18 13:15 08/06/18 13:16 DC 08/06/18 13:15 30 ML Lactobacillus Rhamnosus (Culturelle) 1 cap BID 08/07/18 14:00 08/13/18 08:32 1 CAP Levothyroxine Sodium (Synthroid) 200 mcg DAILY06 08/05/18 15:00 08/13/18 06:09 200 MCG Lidocaine HCl (Xylocaine-Mpf 1% 2ml Vial) 2 ml PRN 1X PRN 08/07/18 07:00 08/08/18 06:59 DC Lidocaine/Sodium Bicarbonate (Buffered Lidocaine 1%) 3 ml 1X ONCE 08/06/18 13:15 08/06/18 13:16 DC 08/06/18 13:15 5 ML Lisinopril (Prinivil) 40 mg DAILY 08/08/18 09:00 08/08/18 09:00 DC Metolazone (Zaroxolyn) 5 mg DAILY 08/08/18 09:00 08/08/18 09:00 DC Metoprolol Tartrate (Lopressor) 12.5 mg BID 08/05/18 21:00 08/13/18 08:34 12.5 MG Midazolam HCl (Versed) 2 mg 1X ONCE 08/06/18 13:15 08/06/18 13:16 DC 08/06/18 13:15 1 MG Morphine Sulfate (Morphine Sulfate) 1 mg PRN Q10MIN PRN 08/07/18 07:00 08/08/18 06:59 DC Multivitamins (Thera M Plus) 1 tab DAILY 08/05/18 15:00 08/13/18 08:36 1 TAB Non-Formulary Medication (Amlodipine Besylate/ Benazepril (Amlodipine-Benazepril 5-20 Mg)) 1 cap DAILY 08/06/18 09:00 UNV Non-Formulary Medication (Liraglutide (Victoza 3-Yaniv)) 1.8 mg DAILY 08/06/18 09:00 UNV Piperacillin Sod/ Tazobactam Sod (Zosyn Per Pharmacy) 1 each PRN DAILY PRN 08/05/18 13:45 Piperacillin Sod/ Tazobactam Sod 2.25 gm/Sodium Chloride 50 ml @ 100 mls/hr Q6HRS 08/08/18 18:00 08/13/18 06:08 100 MLS/HR Piperacillin Sod/ Tazobactam Sod 3.375 gm/Sodium Chloride 50 ml @ 100 mls/hr Q6HRS 08/05/18 14:30 08/08/18 13:10 DC 08/08/18 12:44 100 MLS/HR Pramipexole Dihydrochloride (miraPEX) 0.25 mg DAILY 08/05/18 15:00 08/13/18 08:35 0.25 MG Pregabalin (Lyrica) 150 mg BID 08/05/18 21:00 08/13/18 08:35 150 MG Prochlorperazine Edisylate (Compazine) 5 mg PACU PRN PRN 08/07/18 07:00 08/08/18 06:59 DC Ringer's Solution 1,000 ml @ 30 mls/hr Q24H 08/07/18 07:00 08/07/18 18:59 DC Saliva Substitute (Biotene Moisturizing Mouth) 1 spray PRN BID PRN 08/11/18 05:45 Sodium Bicarbonate (Sodium Bicarbonate) 650 mg TID 08/05/18 15:00 08/13/18 08:36 650 MG Sodium Chloride 1,000 ml @ 100 mls/hr Q10H 08/05/18 15:00 08/13/18 03:55 100 MLS/HR Labs: Lab Laboratory Tests Test 08/12/18 11:49 08/12/18 16:37 08/12/18 20:35 08/13/18 03:10 Glucose (Fingerstick) 183 mg/dL (70-99) 190 mg/dL (70-99) 257 mg/dL (70-99) White Blood Count 9.0 x10^3/uL (4.0-11.0) Red Blood Count 2.85 x10^6/uL (3.50-5.40) Hemoglobin 7.5 g/dL (12.0-15.5) Hematocrit 22.5 % (36.0-47.0) Mean Corpuscular Volume 79 fL (79-100) Mean Corpuscular Hemoglobin 26 pg (25-35) Mean Corpuscular Hemoglobin Concent 33 g/dL (31-37) Red Cell Distribution Width 14.7 % (11.5-14.5) Platelet Count 189 x10^3/uL (140-400) Neutrophils (%) (Auto) 84 % (31-73) Lymphocytes (%) (Auto) 8 % (24-48) Monocytes (%) (Auto) 6 % (0-9) Eosinophils (%) (Auto) 1 % (0-3) Basophils (%) (Auto) 1 % (0-3) Neutrophils # (Auto) 7.6 x10^3uL (1.8-7.7) Lymphocytes # (Auto) 0.8 x10^3/uL (1.0-4.8) Monocytes # (Auto) 0.6 x10^3/uL (0.0-1.1) Eosinophils # (Auto) 0.0 x10^3/uL (0.0-0.7) Basophils # (Auto) 0.1 x10^3/uL (0.0-0.2) Sodium Level 137 mmol/L (136-145) Potassium Level 4.2 mmol/L (3.5-5.1) Chloride Level 104 mmol/L (98-107) Carbon Dioxide Level 22 mmol/L (21-32) Anion Gap 11 (6-14) Blood Urea Nitrogen 54 mg/dL (7-20) Creatinine 2.8 mg/dL (0.6-1.0) Estimated GFR (Cockcroft-Gault) 17.1 Glucose Level 242 mg/dL (70-99) Calcium Level 8.2 mg/dL (8.5-10.1) Test 08/13/18 07:48 Glucose (Fingerstick) 198 mg/dL (70-99) Objective: Assessment: Fever again , Left big toe gangrene with exposed bone awaiting arteriogram and surgery Left big toe and foot cellulitis improving PAD CAD JACKI DM HTN Rash right hand ? abrasion from scratch,improving Diarrhea c diff neg 08/10 Plan: Plan of Care DC Zosyn Cefepime and flagyl Local wound care monitor lt ankle though no evidence of gout or other inflammatory condition cont supportive care f/u c/s and labs in JACQUIE Baez MD Aug 13, 2018 09:56
[2018-08-13 11:00] VITALS: BP 137/51
[2018-08-13] MEDS ORDERED: FUROSEMIDE 20 MG/2 ML VIAL. IVP ONE (11:15)
--- NOTE | 2018-08-13 11:20 | PDOC ---
SUBJECTIVE ROS C/O Cough, febrile OBJECTIVE Vital Signs Vital Signs Date Time Temp Pulse Resp B/P (MAP) Pulse Ox O2 Delivery O2 Flow Rate FiO2 08/13/18 08:36 84 144/59 08/13/18 07:24 90 Room Air 08/13/18 07:00 97.9 16 97.9 I & 0 Intake and Output 08/13/18 07:00 Intake Total 350 ml Balance 350 ml Intake Oral 350 ml # Voids 6 PHYSICAL EXAM Physical Exam GEN.: No apparent distress, sitting up in chair HEENT: OM moist NECK: Supple. LUNGS: Clear to auscultation. HEART: RRR, S1, S2 present. ABDOMEN: Soft, nontender. EXTREMITIES: right foot dressed, erythema and edema of soft tissue present NEUROLOGIC: Grossly normal SKIN: No Rash - No Menjivar DIAGNOSIS/ASSESSMENT Assessment & Plan JACKI- Creat up to 2.8 (baseline 2.0) S/P Abdominal Aortogram 08/06 Holding metolazone and LE-I till renal function stabilizes Defer decision to Vascular after weighing the risk and benefit of giving contrast As per vascular no urgency for Angio, can be done in 2-3 weeks as currently stable and can be done as OP,discussed with Pa Flaco IVF, IV lasix 20 mg once for mild fluid overload CKD stage 3 - baseline 2.0 Discussed Risk of YESSY at great length with patient and family at bedside Prior to Angio recommend IVF(Pre Procedure) , during and at least 12 hrs Post procedure , Hold Diuretics, LE-I/ARB Monitor for YESSY Lt Peripheral artery disease and left 1st toe gangrene Left exposed bone and cellulitis S/P Abdominal Aortogram 08/06-recanalization the SFA and pop Angiogram with possible tibial intervention will be scheduled later, no urgent indication followed by Left 1st toe amputation On antibiotics. Fever- Cough + CxR ? infiltrate CAD s/p CABG Anemia- Received Aranesp Hgb lower than baseline today Has bee receiving ANNIA as OP as well DM - On insulin Discussed with Pt, Vascular and RN COMMENT/RELEVANT DATA Meds Current Medications Medications (Trade) Dose Ordered Sig/Michelle Start Time Stop Time Status Last Admin Dose Admin Acetaminophen (Tylenol) 325 mg PRN Q6HRS PRN 08/05/18 18:30 08/12/18 23:02 325 MG Albuterol/ Ipratropium (Duoneb) 3 ml RTQID 08/12/18 16:15 08/13/18 07:21 3 ML Amlodipine Besylate (Norvasc) 5 mg 1X ONCE 08/11/18 09:00 08/11/18 09:01 DC 08/11/18 09:07 5 MG Aspirin (Ecotrin) 81 mg DAILY 08/05/18 15:00 08/13/18 08:32 81 MG Atorvastatin Calcium (Lipitor) 40 mg HS 08/05/18 21:00 08/12/18 20:34 40 MG Benzonatate (Tessalon Perle) 100 mg [id number] 08/12/18 16:15 08/13/18 08:36 100 MG Carvedilol (Coreg) 3.125 mg BIDWMEALS 08/05/18 17:00 UNV Cefazolin Sodium 1 gm/Sodium Chloride 250 ml @ 250 mls/hr 1X ONCE 08/07/18 06:00 08/07/18 06:59 DC Cefepime HCl (Maxipime) 1 gm Q12HR 08/13/18 21:00 Clopidogrel Bisulfate (Plavix) 75 mg DAILYWBKFT 08/11/18 17:00 08/13/18 08:32 75 MG Darbepoetin Galileo (Aranesp) 60 mcg 1X ONCE 08/11/18 18:30 08/11/18 18:31 DC 08/11/18 17:47 60 MCG Dextrose (Dextrose 50%-Water Syringe) 12.5 gm PRN Q15MIN PRN 08/06/18 17:45 08/10/18 08:21 12.5 GM Fentanyl Citrate (Fentanyl 2ml Vial) 100 mcg 1X ONCE 08/06/18 13:15 08/06/18 13:16 DC 08/06/18 13:15 75 MCG Ferrous Sulfate (Feosol) 325 mg DAILYWBKFT 08/12/18 08:00 08/13/18 08:32 325 MG Guaifenesin (MUCINEX ER with DM) 1 tab BID 08/12/18 21:00 08/13/18 08:35 1 TAB Heparin Sodium (Porcine) (Heparin Sodium) 5,000 unit 1X ONCE 08/06/18 14:00 08/06/18 14:01 DC 08/06/18 14:00 5,000 UNIT Heparin Sodium/ Sodium Chloride (HEPARIN for ARTERIAL LINE FLUSH) 1,000 unit 1X ONCE 08/06/18 13:15 08/06/18 13:16 DC 08/06/18 13:15 1,000 UNIT Hydralazine HCl (Apresoline Inj) 10 mg 1X ONCE 08/06/18 14:30 08/06/18 14:33 DC 08/06/18 14:30 10 MG Hydromorphone HCl (Dilaudid) 0.5 mg PRN Q10MIN PRN 08/07/18 07:00 08/08/18 06:59 DC Insulin Glargine (Lantus) 18 units HS 08/10/18 21:00 08/12/18 20:43 18 UNITS Insulin Human Lispro (HumaLOG) 0-7 UNITS TIDWMEALS 08/06/18 18:00 08/13/18 09:25 3 UNITS Iodixanol (Visipaque 320) 100 ml 1X ONCE 08/06/18 13:15 08/06/18 13:16 DC 08/06/18 13:15 30 ML Lactobacillus Rhamnosus (Culturelle) 1 cap BID 08/07/18 14:00 08/13/18 08:32 1 CAP Levothyroxine Sodium (Synthroid) 200 mcg DAILY06 08/05/18 15:00 08/13/18 06:09 200 MCG Lidocaine HCl (Xylocaine-Mpf 1% 2ml Vial) 2 ml PRN 1X PRN 08/07/18 07:00 08/08/18 06:59 DC Lidocaine/Sodium Bicarbonate (Buffered Lidocaine 1%) 3 ml 1X ONCE 08/06/18 13:15 08/06/18 13:16 DC 08/06/18 13:15 5 ML Lisinopril (Prinivil) 40 mg DAILY 08/08/18 09:00 08/08/18 09:00 DC Metolazone (Zaroxolyn) 5 mg DAILY 08/08/18 09:00 08/08/18 09:00 DC Metoprolol Tartrate (Lopressor) 12.5 mg BID 08/05/18 21:00 08/13/18 08:34 12.5 MG Metronidazole (Flagyl) 500 mg Q12HR 08/13/18 11:00 Midazolam HCl (Versed) 2 mg 1X ONCE 08/06/18 13:15 08/06/18 13:16 DC 08/06/18 13:15 1 MG Morphine Sulfate (Morphine Sulfate) 1 mg PRN Q10MIN PRN 08/07/18 07:00 08/08/18 06:59 DC Multivitamins (Thera M Plus) 1 tab DAILY 08/05/18 15:00 08/13/18 08:36 1 TAB Non-Formulary Medication (Amlodipine Besylate/ Benazepril (Amlodipine-Benazepril 5-20 Mg)) 1 cap DAILY 08/06/18 09:00 UNV Non-Formulary Medication (Liraglutide (Victoza 3-Yaniv)) 1.8 mg DAILY 08/06/18 09:00 UNV Piperacillin Sod/ Tazobactam Sod (Zosyn Per Pharmacy) 1 each PRN DAILY PRN 08/05/18 13:45 08/13/18 11:00 DC Piperacillin Sod/ Tazobactam Sod 2.25 gm/Sodium Chloride 50 ml @ 100 mls/hr Q6HRS 08/08/18 18:00 08/13/18 10:58 DC 08/13/18 06:08 100 MLS/HR Piperacillin Sod/ Tazobactam Sod 3.375 gm/Sodium Chloride 50 ml @ 100 mls/hr Q6HRS 08/05/18 14:30 08/08/18 13:10 DC 08/08/18 12:44 100 MLS/HR Pramipexole Dihydrochloride (miraPEX) 0.25 mg DAILY 08/05/18 15:00 08/13/18 08:35 0.25 MG Pregabalin (Lyrica) 150 mg BID 08/05/18 21:00 08/13/18 08:35 150 MG Prochlorperazine Edisylate (Compazine) 5 mg PACU PRN PRN 08/07/18 07:00 08/08/18 06:59 DC Ringer's Solution 1,000 ml @ 30 mls/hr Q24H 08/07/18 07:00 08/07/18 18:59 DC Saliva Substitute (Biotene Moisturizing Mouth) 1 spray PRN BID PRN 08/11/18 05:45 Sodium Bicarbonate (Sodium Bicarbonate) 650 mg TID 08/05/18 15:00 08/13/18 08:36 650 MG Sodium Chloride 1,000 ml @ 100 mls/hr Q10H 08/05/18 15:00 08/13/18 03:55 100 MLS/HR Lab Laboratory Tests Test 08/12/18 11:49 08/12/18 16:37 08/12/18 20:35 08/13/18 03:10 Glucose (Fingerstick) 183 mg/dL (70-99) 190 mg/dL (70-99) 257 mg/dL (70-99) White Blood Count 9.0 x10^3/uL (4.0-11.0) Red Blood Count 2.85 x10^6/uL (3.50-5.40) Hemoglobin 7.5 g/dL (12.0-15.5) Hematocrit 22.5 % (36.0-47.0) Mean Corpuscular Volume 79 fL (79-100) Mean Corpuscular Hemoglobin 26 pg (25-35) Mean Corpuscular Hemoglobin Concent 33 g/dL (31-37) Red Cell Distribution Width 14.7 % (11.5-14.5) Platelet Count 189 x10^3/uL (140-400) Neutrophils (%) (Auto) 84 % (31-73) Lymphocytes (%) (Auto) 8 % (24-48) Monocytes (%) (Auto) 6 % (0-9) Eosinophils (%) (Auto) 1 % (0-3) Basophils (%) (Auto) 1 % (0-3) Neutrophils # (Auto) 7.6 x10^3uL (1.8-7.7) Lymphocytes # (Auto) 0.8 x10^3/uL (1.0-4.8) Monocytes # (Auto) 0.6 x10^3/uL (0.0-1.1) Eosinophils # (Auto) 0.0 x10^3/uL (0.0-0.7) Basophils # (Auto) 0.1 x10^3/uL (0.0-0.2) Sodium Level 137 mmol/L (136-145) Potassium Level 4.2 mmol/L (3.5-5.1) Chloride Level 104 mmol/L (98-107) Carbon Dioxide Level 22 mmol/L (21-32) Anion Gap 11 (6-14) Blood Urea Nitrogen 54 mg/dL (7-20) Creatinine 2.8 mg/dL (0.6-1.0) Estimated GFR (Cockcroft-Gault) 17.1 Glucose Level 242 mg/dL (70-99) Calcium Level 8.2 mg/dL (8.5-10.1) Test 08/13/18 07:48 Glucose (Fingerstick) 198 mg/dL (70-99) Results All relevant outside records, renal labs, imaging studies, telemetry/EKG's were reviewed. DAVID BOWMAN MD Aug 13, 2018 11:20
[2018-08-13] MEDS: metroNIDAZOLE 500 MG TABLET PO SCH ×2 (12:08→20:42)
[2018-08-13 15:00] VITALS: BP 147/55
--- NOTE | 2018-08-13 17:49 | PDOC ---
PROGRESS NOTES Subjective Febrile overnight with sweats, cultures obtained, antibiotics changed, WBC normal though, toe red but foot normal Objective General: NAD, comfortable Heart: RRR Lungs: still CTA Abd: soft and non tender Ext: redness of left 1st toe but no cellulitis of foot or leg WBC: 9 Hgb: 7.5 Creat: 2.8 Portable chest, 08/13/2018: HISTORY: Fever Comparison is made yesterday study. The heart size is normal. Bibasilar linear opacities suggesting atelectasis and/or scarring are unchanged. There is a mild retrocardiac left basilar opacity suggesting atelectasis/infiltrate. There is minimal unchanged basilar interstitial prominence. A faint unchanged nodular opacity is projected over the right upper chest laterally. There is unchanged blunting of the lateral costophrenic angles which may be due to scarring or a tiny amount pleural fluid. IMPRESSION: Persistent bilateral pulmonary opacities suggesting atelectasis/infiltrate superimposed upon scarring. Vital Signs Vital Signs Date Time Temp Pulse Resp B/P (MAP) Pulse Ox O2 Delivery O2 Flow Rate FiO2 08/13/18 15:31 Room Air 08/13/18 15:00 90 16 147/55 (85) 91 08/13/18 11:00 98.1 98.1 08/09/18 15:00 2.0 I & O Intake and Output 08/13/18 07:00 Intake Total 350 ml Balance 350 ml Intake Oral 350 ml # Voids 6 Assessment and Plan osteomyelitis of left 1st toe, exposed bone - IV abx, wound care, need amputation when renal function allows PAD - arteriogram postponed due to renal function CAD, s/p CABG CKD - due to contrast from studies, monitor, continue IV hydration, renal following, postponed vascular study Type 2 diabetes- on roasterman insulin, SSI added, A1C not consistent with good control, reviewed diet choices, continue Lantus to 16 units + SSI Anemia -iron deficient, added oral iron which may also help loose stools fever - check cultures, CXR suggests atelectasis/infiltrate, antibiotics changed by ID, monitor CBC cough - added neb tx, Mucinex DM, Abel, IS Nicolás HAMM MD Aug 13, 2018 17:49
[2018-08-13 19:00] VITALS: BP 161/67
[2018-08-13] MEDS: CEFEPIME HCL IV Push 1 GM VIAL. IVP SCH (20:42)
[2018-08-13] MEDS: ATORVASTATIN CALCIUM 40 MG TABLET. PO SCH (20:42)
[2018-08-13] MEDS: INSULIN GLARGINE 300 UNITS/3 ML INSULN.PEN. SQ SCH (21:08)
[2018-08-13 23:00] VITALS: BP 141/52
[2018-08-14 03:00] VITALS: BP 129/51
[2018-08-14] MEDS: LEVOTHYROXINE 100 MCG TABLET PO SCH (06:01)
[2018-08-14] MEDS: LEVOTHYROXINE 25 MCG TABLET. PO SCH (06:01)
[2018-08-14 06:33] LABS: BASO # 0.1 x10^3/uL (0.0-0.2); BASO % 1 % (0-3); EOS # 0.3 x10^3/uL (0.0-0.7); EOS % 4 % (0-3); HEMATOCRIT 23.1 % (36.0-47.0); HEMOGLOBIN 7.5 g/dL (12.0-15.5); LYMPH # 1.4 x10^3/uL (1.0-4.8); LYMPH % 17 % (24-48); MEAN CORPUSCULAR HEMOGLOBIN 26 pg (25-35); MEAN CORPUSCULAR HGB CONC 33 g/dL (31-37); MEAN CORPUSCULAR VOLUME 79 fL (79-100); MONO # 0.7 x10^3/uL (0.0-1.1); MONO % 8 % (0-9); NEUT # 6.1 x10^3uL (1.8-7.7); NEUT % 71 % (31-73); PLATELET COUNT 206 x10^3/uL (140-400); RED BLOOD COUNT 2.93 x10^6/uL (3.50-5.40); RED CELL DISTRIBUTION WIDTH 15.1 % (11.5-14.5); WHITE BLOOD COUNT 8.6 x10^3/uL (4.0-11.0)
[2018-08-14 06:45] LABS: CALCIUM 9.1 mg/dL (8.5-10.1); CREATININE 3.1 mg/dL (0.6-1.0); GFR 15.2; POTASSIUM 4.1 mmol/L (3.5-5.1)
[2018-08-14 07:00] VITALS: BP 140/57
[2018-08-14] MEDS: IPRATRPIUM/ALBUTEROL 0.5/2.5MG 3 ML NEBU. NEB SCH ×4 (07:08→20:02)
[2018-08-14] MEDS: INSULIN LISPRO 300 UNITS/3 ML INSULN.PEN. SQ SCH ×3 (08:00→17:19)
[2018-08-14] MEDS: BENZONATATE 100 MG CAPSULE. PO SCH ×3 (08:18→20:59)
[2018-08-14] MEDS: METOPROLOL TART IMMED RELEASE 25 MG TABLET. PO SCH ×2 (08:18→20:59)
[2018-08-14] MEDS: metroNIDAZOLE 500 MG TABLET PO SCH ×2 (08:18→20:58)
[2018-08-14] MEDS: SODIUM BICARBONATE 650 MG TABLET. PO SCH ×3 (08:18→20:58)
[2018-08-14] MEDS: ASPIRIN ENTERIC COATED 81 MG TABLET.DR. PO SCH (08:18)
[2018-08-14] MEDS: CLOPIDOGREL BISULFATE 75 MG TABLET PO SCH (08:19)
[2018-08-14] MEDS: CEFEPIME HCL IV Push 1 GM VIAL. IVP SCH ×2 (08:19→21:00)
[2018-08-14] MEDS: guaiFENesin DM 600/30MG 1 TAB TAB.ER.12H PO SCH ×2 (08:19→20:58)
[2018-08-14] MEDS: LACTOBACILLUS RHAMNOSUS GG 1 CAPSULE. PO SCH ×2 (08:19→20:59)
[2018-08-14] MEDS: amLODIPine BESYLATE 10 MG TABLET PO SCH (08:19)
[2018-08-14] MEDS: FERROUS SULFATE 325 MG TABLET. PO SCH (08:19)
[2018-08-14] MEDS: PRAMIPEXOLE 0.25 MG TABLET. PO SCH (08:19)
[2018-08-14] MEDS: PREGABALIN 75 MG CAPSULE PO SCH ×2 (08:20→21:00)
[2018-08-14] MEDS: MULTIVITAMIN with MINERAL TABLET. PO SCH (08:20)
--- NOTE | 2018-08-14 09:01 | PDOC ---
PROGRESS NOTES Subjective Tmax 100.2, still coughing, winded with any activity, renal function worsened today per lab but off IVF due to overload and due to lasi dose yesterday. 2 BMs yesterday, sugar controlled this am, she is trying to limit the carbs given by dietary Objective General: A&O Heart: RRR Lungs: crackles right base Abd: soft and non tender Ext: left toe unchanged WBC: normal Hgb: unchanged K+: normal Creat: up Vital Signs Vital Signs Date Time Temp Pulse Resp B/P (MAP) Pulse Ox O2 Delivery O2 Flow Rate FiO2 08/14/18 08:19 97 140/57 08/14/18 07:19 90 Room Air 08/14/18 07:00 99.3 18 99.3 08/09/18 15:00 2.0 I & O Intake and Output 08/14/18 07:00 Intake Total 150 ml Balance 150 ml Intake Oral 150 ml # Voids 3 # Bowel Movements 1 Assessment and Plan osteomyelitis of left 1st toe, exposed bone - IV abx, wound care, needs amputation when renal function allows PAD - arteriogram postponed due to renal function CAD, s/p CABG no CP check echo CKD with JACKI - due to contrast from studies, monitor, off IV hydration, renal following, postponed vascular study 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
--- NOTE | 2018-08-14 09:32 | PDOC ---
Infectious Disease Note Subjective: Subjective Pt says feels better fever pattern improving Denies N/V has cough and today has some sputum Rash on rt hand is improving no jt pain ROS: ROS Negative except for above. Vital Signs: Vital Signs Vital Signs Date Time Temp Pulse Resp B/P (MAP) Pulse Ox O2 Delivery O2 Flow Rate FiO2 08/14/18 08:19 97 140/57 08/14/18 07:19 90 Room Air 08/14/18 07:00 99.3 18 99.3 Physical Exam: PHYSICAL EXAM GENERAL: Propped up in chair alert oriented x3 HEENT: Oral cavity clear, partial in place NECK: Supple LUNGS: Clear. HEART: S1, S2 regular. ABDOMEN: Soft and nontender EXTREMITIES: Lt leg trace edema, cyanosis. left foot dressing taken down, no worsening of toe wound. DP difficult to palpate SKIN: Light rash dorsal accept right hand/fingers,improving. No warmth NEUROLOGIC: Alert and oriented x 3 Medications: Inpatient Meds: Current Medications Medications (Trade) Dose Ordered Sig/Michelle Start Time Stop Time Status Last Admin Dose Admin Acetaminophen (Tylenol) 325 mg PRN Q6HRS PRN 08/05/18 18:30 08/12/18 23:02 325 MG Albuterol/ Ipratropium (Duoneb) 3 ml RTQID 08/12/18 16:15 08/14/18 07:08 3 ML Amlodipine Besylate (Norvasc) 5 mg 1X ONCE 08/11/18 09:00 08/11/18 09:01 DC 08/11/18 09:07 5 MG Aspirin (Ecotrin) 81 mg DAILY 08/05/18 15:00 08/14/18 08:18 81 MG Atorvastatin Calcium (Lipitor) 40 mg HS 08/05/18 21:00 08/13/18 20:42 40 MG Benzonatate (Tessalon Perle) 100 mg [id number] 08/12/18 16:15 08/14/18 08:18 100 MG Carvedilol (Coreg) 3.125 mg BIDWMEALS 08/05/18 17:00 UNV Cefazolin Sodium 1 gm/Sodium Chloride 250 ml @ 250 mls/hr 1X ONCE 08/07/18 06:00 08/07/18 06:59 DC Cefepime HCl (Maxipime) 1 gm Q12HR 08/13/18 21:00 08/14/18 08:19 1 GM Clopidogrel Bisulfate (Plavix) 75 mg DAILYWBKFT 08/11/18 17:00 08/14/18 08:19 75 MG Darbepoetin Galileo (Aranesp) 60 mcg 1X ONCE 08/11/18 18:30 08/11/18 18:31 DC 08/11/18 17:47 60 MCG Dextrose (Dextrose 50%-Water Syringe) 12.5 gm PRN Q15MIN PRN 08/06/18 17:45 08/10/18 08:21 12.5 GM Fentanyl Citrate (Fentanyl 2ml Vial) 100 mcg 1X ONCE 08/06/18 13:15 08/06/18 13:16 DC 08/06/18 13:15 75 MCG Ferrous Sulfate (Feosol) 325 mg DAILYWBKFT 08/12/18 08:00 08/14/18 08:19 325 MG Furosemide (Lasix) 20 mg 1X ONCE 08/13/18 11:15 08/13/18 11:16 DC 08/13/18 12:08 20 MG Guaifenesin (MUCINEX ER with DM) 1 tab BID 08/12/18 21:00 08/14/18 08:19 1 TAB Heparin Sodium (Porcine) (Heparin Sodium) 5,000 unit 1X ONCE 08/06/18 14:00 08/06/18 14:01 DC 08/06/18 14:00 5,000 UNIT Heparin Sodium/ Sodium Chloride (HEPARIN for ARTERIAL LINE FLUSH) 1,000 unit 1X ONCE 08/06/18 13:15 08/06/18 13:16 DC 08/06/18 13:15 1,000 UNIT Hydralazine HCl (Apresoline Inj) 10 mg 1X ONCE 08/06/18 14:30 08/06/18 14:33 DC 08/06/18 14:30 10 MG Hydromorphone HCl (Dilaudid) 0.5 mg PRN Q10MIN PRN 08/07/18 07:00 08/08/18 06:59 DC Insulin Glargine (Lantus) 18 units HS 08/10/18 21:00 08/13/18 21:08 18 UNITS Insulin Human Lispro (HumaLOG) 0-7 UNITS TIDWMEALS 08/06/18 18:00 08/13/18 17:17 4 UNITS Iodixanol (Visipaque 320) 100 ml 1X ONCE 08/06/18 13:15 08/06/18 13:16 DC 08/06/18 13:15 30 ML Lactobacillus Rhamnosus (Culturelle) 1 cap BID 08/07/18 14:00 08/14/18 08:19 1 CAP Levothyroxine Sodium (Synthroid) 200 mcg DAILY06 08/05/18 15:00 08/14/18 06:01 200 MCG Lidocaine HCl (Xylocaine-Mpf 1% 2ml Vial) 2 ml PRN 1X PRN 08/07/18 07:00 08/08/18 06:59 DC Lidocaine/Sodium Bicarbonate (Buffered Lidocaine 1%) 3 ml 1X ONCE 08/06/18 13:15 08/06/18 13:16 DC 08/06/18 13:15 5 ML Lisinopril (Prinivil) 40 mg DAILY 08/08/18 09:00 08/08/18 09:00 DC Metolazone (Zaroxolyn) 5 mg DAILY 08/08/18 09:00 08/08/18 09:00 DC Metoprolol Tartrate (Lopressor) 12.5 mg BID 08/05/18 21:00 08/14/18 08:18 12.5 MG Metronidazole (Flagyl) 500 mg Q12HR 08/13/18 11:00 08/14/18 08:18 500 MG Midazolam HCl (Versed) 2 mg 1X ONCE 08/06/18 13:15 08/06/18 13:16 DC 08/06/18 13:15 1 MG Morphine Sulfate (Morphine Sulfate) 1 mg PRN Q10MIN PRN 08/07/18 07:00 08/08/18 06:59 DC Multivitamins (Thera M Plus) 1 tab DAILY 08/05/18 15:00 08/14/18 08:20 1 TAB Non-Formulary Medication (Amlodipine Besylate/ Benazepril (Amlodipine-Benazepril 5-20 Mg)) 1 cap DAILY 08/06/18 09:00 UNV Non-Formulary Medication (Liraglutide (Victoza 3-Yaniv)) 1.8 mg DAILY 08/06/18 09:00 UNV Piperacillin Sod/ Tazobactam Sod (Zosyn Per Pharmacy) 1 each PRN DAILY PRN 08/05/18 13:45 08/13/18 11:00 DC Piperacillin Sod/ Tazobactam Sod 2.25 gm/Sodium Chloride 50 ml @ 100 mls/hr Q6HRS 08/08/18 18:00 08/13/18 10:58 DC 08/13/18 06:08 100 MLS/HR Piperacillin Sod/ Tazobactam Sod 3.375 gm/Sodium Chloride 50 ml @ 100 mls/hr Q6HRS 08/05/18 14:30 08/08/18 13:10 DC 08/08/18 12:44 100 MLS/HR Pramipexole Dihydrochloride (miraPEX) 0.25 mg DAILY 08/05/18 15:00 08/14/18 08:19 0.25 MG Pregabalin (Lyrica) 150 mg BID 08/05/18 21:00 08/13/18 20:40 150 MG Prochlorperazine Edisylate (Compazine) 5 mg PACU PRN PRN 08/07/18 07:00 08/08/18 06:59 DC Ringer's Solution 1,000 ml @ 30 mls/hr Q24H 08/07/18 07:00 08/07/18 18:59 DC Saliva Substitute (Biotene Moisturizing Mouth) 1 spray PRN BID PRN 08/11/18 05:45 Sodium Bicarbonate (Sodium Bicarbonate) 650 mg TID 08/05/18 15:00 08/14/18 08:18 650 MG Sodium Chloride 1,000 ml @ 100 mls/hr Q10H 08/05/18 15:00 08/14/18 03:55 DC 08/13/18 03:55 100 MLS/HR Labs: Lab Laboratory Tests Test 08/13/18 11:05 08/13/18 16:41 08/13/18 20:52 08/14/18 05:27 Glucose (Fingerstick) 223 mg/dL (70-99) 229 mg/dL (70-99) 294 mg/dL (70-99) White Blood Count 8.6 x10^3/uL (4.0-11.0) Red Blood Count 2.93 x10^6/uL (3.50-5.40) Hemoglobin 7.5 g/dL (12.0-15.5) Hematocrit 23.1 % (36.0-47.0) Mean Corpuscular Volume 79 fL (79-100) Mean Corpuscular Hemoglobin 26 pg (25-35) Mean Corpuscular Hemoglobin Concent 33 g/dL (31-37) Red Cell Distribution Width 15.1 % (11.5-14.5) Platelet Count 206 x10^3/uL (140-400) Neutrophils (%) (Auto) 71 % (31-73) Lymphocytes (%) (Auto) 17 % (24-48) Monocytes (%) (Auto) 8 % (0-9) Eosinophils (%) (Auto) 4 % (0-3) Basophils (%) (Auto) 1 % (0-3) Neutrophils # (Auto) 6.1 x10^3uL (1.8-7.7) Lymphocytes # (Auto) 1.4 x10^3/uL (1.0-4.8) Monocytes # (Auto) 0.7 x10^3/uL (0.0-1.1) Eosinophils # (Auto) 0.3 x10^3/uL (0.0-0.7) Basophils # (Auto) 0.1 x10^3/uL (0.0-0.2) Sodium Level 139 mmol/L (136-145) Potassium Level 4.1 mmol/L (3.5-5.1) Chloride Level 105 mmol/L (98-107) Carbon Dioxide Level 25 mmol/L (21-32) Anion Gap 9 (6-14) Blood Urea Nitrogen 70 mg/dL (7-20) Creatinine 3.1 mg/dL (0.6-1.0) Estimated GFR (Cockcroft-Gault) 15.2 Glucose Level 180 mg/dL (70-99) Calcium Level 9.1 mg/dL (8.5-10.1) Test 08/14/18 07:45 Glucose (Fingerstick) 142 mg/dL (70-99) Objective: Assessment: Fever pattern improving Left big toe gangrene with exposed bone awaiting arteriogram and surgery Left big toe and foot cellulitis improving PAD CAD JACKI worsening creat, DM HTN Rash right hand ? abrasion from scratch,improving Diarrhea c diff neg 08/10 Bilateral pulmonary opacities suggesting atelectasis/infiltrate superimposed upon scarring. Plan: Plan of Care Cont Cefepime and flagyl 08/13; was on Zosyn before add empiric doxycycline f/u BC 08/13 hold discharge ,until afebrile for atleast 24hrs vascular surgery is on hold for now due to jacki Local wound care cont supportive care f/u c/s and labs in am D/W Dr Paredes and [facility] vascular surgery JACQUIE AGUILAR MD Aug 14, 2018 09:32
--- NOTE | 2018-08-14 09:43 | PDOC ---
SUBJECTIVE ROS No Complaints OBJECTIVE Vital Signs Vital Signs Date Time Temp Pulse Resp B/P (MAP) Pulse Ox O2 Delivery O2 Flow Rate FiO2 08/14/18 08:19 97 140/57 08/14/18 07:19 90 Room Air 08/14/18 07:00 99.3 18 99.3 I & 0 Intake and Output 08/14/18 06:59 Intake Total 150 ml Balance 150 ml Intake Oral 150 ml # Voids 3 # Bowel Movements 1 PHYSICAL EXAM Physical Exam GEN.: No apparent distress, sitting up HEENT: OM moist NECK: Supple. LUNGS: Clear to auscultation. HEART: RRR, S1, S2 present. ABDOMEN: Soft, nontender. EXTREMITIES: right foot dressed, erythema and edema of soft tissue present NEUROLOGIC: Grossly normal SKIN: No Rash - No Menjivar DIAGNOSIS/ASSESSMENT Assessment & Plan JACKI- Creat up to 3.1 (baseline 2.0)- ATN/Contrast induced nephropathy S/P Abdominal Aortogram 08/06 Holding metolazone and LE-I till renal function stabilizes As per vascular no urgency for Angio, can be done in 2-3 weeks as currently stable and can be done as OP Dced IVF CKD stage 3 - baseline 2.0 Discussed Risk of YESSY at great length with patient and family at bedside Prior to Angio recommend IVF(Pre Procedure) , during and at least 12 hrs Post procedure , Hold Diuretics, LE-I/ARB Diarrhea c diff neg 08/10 Lt Peripheral artery disease and left 1st toe gangrene Left exposed bone and cellulitis S/P Abdominal Aortogram 08/06-recanalization the SFA and pop Angiogram with possible tibial intervention will be scheduled later, no urgent indication followed by Left 1st toe amputation On antibiotics- zosyn switched Fever- Cough + Bilateral pulmonary opacities suggesting atelectasis/infiltrate superimposed upon scarring. CAD s/p CABG Anemia- Aranesp Hgb lower than baseline receiving ANNIA as OP as well DM - On insulin Discussed with Pt, Vascular and ID COMMENT/RELEVANT DATA Meds Current Medications Medications (Trade) Dose Ordered Sig/Michelle Start Time Stop Time Status Last Admin Dose Admin Acetaminophen (Tylenol) 325 mg PRN Q6HRS PRN 08/05/18 18:30 08/12/18 23:02 325 MG Albuterol/ Ipratropium (Duoneb) 3 ml RTQID 4/17/19 16:15 08/14/18 07:08 3 ML Amlodipine Besylate (Norvasc) 5 mg 1X ONCE 08/11/18 09:00 08/11/18 09:01 DC 08/11/18 09:07 5 MG Aspirin (Ecotrin) 81 mg DAILY 08/05/18 15:00 08/14/18 08:18 81 MG Atorvastatin Calcium (Lipitor) 40 mg HS 08/05/18 21:00 08/13/18 20:42 40 MG Benzonatate (Tessalon Perle) 100 mg [id number] 08/12/18 16:15 08/14/18 08:18 100 MG Carvedilol (Coreg) 3.125 mg BIDWMEALS 08/05/18 17:00 UNV Cefazolin Sodium 1 gm/Sodium Chloride 250 ml @ 250 mls/hr 1X ONCE 08/07/18 06:00 08/07/18 06:59 DC Cefepime HCl (Maxipime) 1 gm Q12HR 08/13/18 21:00 08/14/18 08:19 1 GM Clopidogrel Bisulfate (Plavix) 75 mg DAILYWBKFT 08/11/18 17:00 08/14/18 08:19 75 MG Darbepoetin Galileo (Aranesp) 60 mcg 1X ONCE 08/11/18 18:30 08/11/18 18:31 DC 08/11/18 17:47 60 MCG Dextrose (Dextrose 50%-Water Syringe) 12.5 gm PRN Q15MIN PRN 08/06/18 17:45 08/10/18 08:21 12.5 GM Fentanyl Citrate (Fentanyl 2ml Vial) 100 mcg 1X ONCE 08/06/18 13:15 08/06/18 13:16 DC 08/06/18 13:15 75 MCG Ferrous Sulfate (Feosol) 325 mg DAILYWBKFT 08/12/18 08:00 08/14/18 08:19 325 MG Furosemide (Lasix) 20 mg 1X ONCE 08/13/18 11:15 08/13/18 11:16 DC 08/13/18 12:08 20 MG Guaifenesin (MUCINEX ER with DM) 1 tab BID 08/12/18 21:00 08/14/18 08:19 1 TAB Heparin Sodium (Porcine) (Heparin Sodium) 5,000 unit 1X ONCE 08/06/18 14:00 08/06/18 14:01 DC 08/06/18 14:00 5,000 UNIT Heparin Sodium/ Sodium Chloride (HEPARIN for ARTERIAL LINE FLUSH) 1,000 unit 1X ONCE 08/06/18 13:15 08/06/18 13:16 DC 08/06/18 13:15 1,000 UNIT Hydralazine HCl (Apresoline Inj) 10 mg 1X ONCE 08/06/18 14:30 08/06/18 14:33 DC 08/06/18 14:30 10 MG Hydromorphone HCl (Dilaudid) 0.5 mg PRN Q10MIN PRN 08/07/18 07:00 08/08/18 06:59 DC Insulin Glargine (Lantus) 18 units HS 08/10/18 21:00 08/13/18 21:08 18 UNITS Insulin Human Lispro (HumaLOG) 0-7 UNITS TIDWMEALS 08/06/18 18:00 08/13/18 17:17 4 UNITS Iodixanol (Visipaque 320) 100 ml 1X ONCE 08/06/18 13:15 08/06/18 13:16 DC 08/06/18 13:15 30 ML Lactobacillus Rhamnosus (Culturelle) 1 cap BID 08/07/18 14:00 08/14/18 08:19 1 CAP Levothyroxine Sodium (Synthroid) 200 mcg DAILY06 08/05/18 15:00 08/14/18 06:01 200 MCG Lidocaine HCl (Xylocaine-Mpf 1% 2ml Vial) 2 ml PRN 1X PRN 08/07/18 07:00 08/08/18 06:59 DC Lidocaine/Sodium Bicarbonate (Buffered Lidocaine 1%) 3 ml 1X ONCE 08/06/18 13:15 08/06/18 13:16 DC 08/06/18 13:15 5 ML Lisinopril (Prinivil) 40 mg DAILY 08/08/18 09:00 08/08/18 09:00 DC Metolazone (Zaroxolyn) 5 mg DAILY 08/08/18 09:00 08/08/18 09:00 DC Metoprolol Tartrate (Lopressor) 12.5 mg BID 08/05/18 21:00 08/14/18 08:18 12.5 MG Metronidazole (Flagyl) 500 mg Q12HR 08/13/18 11:00 08/14/18 08:18 500 MG Midazolam HCl (Versed) 2 mg 1X ONCE 08/06/18 13:15 08/06/18 13:16 DC 08/06/18 13:15 1 MG Morphine Sulfate (Morphine Sulfate) 1 mg PRN Q10MIN PRN 08/07/18 07:00 08/08/18 06:59 DC Multivitamins (Thera M Plus) 1 tab DAILY 08/05/18 15:00 08/14/18 08:20 1 TAB Non-Formulary Medication (Amlodipine Besylate/ Benazepril (Amlodipine-Benazepril 5-20 Mg)) 1 cap DAILY 08/06/18 09:00 UNV Non-Formulary Medication (Liraglutide (Victoza 3-Yaniv)) 1.8 mg DAILY 08/06/18 09:00 UNV Piperacillin Sod/ Tazobactam Sod (Zosyn Per Pharmacy) 1 each PRN DAILY PRN 08/05/18 13:45 08/13/18 11:00 DC Piperacillin Sod/ Tazobactam Sod 2.25 gm/Sodium Chloride 50 ml @ 100 mls/hr Q6HRS 08/08/18 18:00 08/13/18 10:58 DC 08/13/18 06:08 100 MLS/HR Piperacillin Sod/ Tazobactam Sod 3.375 gm/Sodium Chloride 50 ml @ 100 mls/hr Q6HRS 08/05/18 14:30 08/08/18 13:10 DC 08/08/18 12:44 100 MLS/HR Pramipexole Dihydrochloride (miraPEX) 0.25 mg DAILY 08/05/18 15:00 08/14/18 08:19 0.25 MG Pregabalin (Lyrica) 150 mg BID 08/05/18 21:00 08/13/18 20:40 150 MG Prochlorperazine Edisylate (Compazine) 5 mg PACU PRN PRN 08/07/18 07:00 08/08/18 06:59 DC Ringer's Solution 1,000 ml @ 30 mls/hr Q24H 08/07/18 07:00 08/07/18 18:59 DC Saliva Substitute (Biotene Moisturizing Mouth) 1 spray PRN BID PRN 08/11/18 05:45 Sodium Bicarbonate (Sodium Bicarbonate) 650 mg TID 08/05/18 15:00 08/14/18 08:18 650 MG Sodium Chloride 1,000 ml @ 100 mls/hr Q10H 08/05/18 15:00 08/14/18 03:55 DC 08/13/18 03:55 100 MLS/HR Lab Laboratory Tests Test 08/13/18 11:05 08/13/18 16:41 08/13/18 20:52 08/14/18 05:27 Glucose (Fingerstick) 223 mg/dL (70-99) 229 mg/dL (70-99) 294 mg/dL (70-99) White Blood Count 8.6 x10^3/uL (4.0-11.0) Red Blood Count 2.93 x10^6/uL (3.50-5.40) Hemoglobin 7.5 g/dL (12.0-15.5) Hematocrit 23.1 % (36.0-47.0) Mean Corpuscular Volume 79 fL (79-100) Mean Corpuscular Hemoglobin 26 pg (25-35) Mean Corpuscular Hemoglobin Concent 33 g/dL (31-37) Red Cell Distribution Width 15.1 % (11.5-14.5) Platelet Count 206 x10^3/uL (140-400) Neutrophils (%) (Auto) 71 % (31-73) Lymphocytes (%) (Auto) 17 % (24-48) Monocytes (%) (Auto) 8 % (0-9) Eosinophils (%) (Auto) 4 % (0-3) Basophils (%) (Auto) 1 % (0-3) Neutrophils # (Auto) 6.1 x10^3uL (1.8-7.7) Lymphocytes # (Auto) 1.4 x10^3/uL (1.0-4.8) Monocytes # (Auto) 0.7 x10^3/uL (0.0-1.1) Eosinophils # (Auto) 0.3 x10^3/uL (0.0-0.7) Basophils # (Auto) 0.1 x10^3/uL (0.0-0.2) Sodium Level 139 mmol/L (136-145) Potassium Level 4.1 mmol/L (3.5-5.1) Chloride Level 105 mmol/L (98-107) Carbon Dioxide Level 25 mmol/L (21-32) Anion Gap 9 (6-14) Blood Urea Nitrogen 70 mg/dL (7-20) Creatinine 3.1 mg/dL (0.6-1.0) Estimated GFR (Cockcroft-Gault) 15.2 Glucose Level 180 mg/dL (70-99) Calcium Level 9.1 mg/dL (8.5-10.1) Test 08/14/18 07:45 Glucose (Fingerstick) 142 mg/dL (70-99) Results All relevant outside records, renal labs, imaging studies, telemetry/EKG's were reviewed. DAVID BOWMAN MD Aug 14, 2018 09:43
--- NOTE | 2018-08-14 10:16 | CARD ---
MR#: [id number] Date of Study: 08/14/2018 Ordering Physician: Daljit HAMM, Referring Physician: Daljit HAMM Tech: Carey Vegas RDCS APPROVED REPORT EXAM: Two-dimensional and M-mode echocardiogram with Doppler and color Doppler. Other Information Quality : AverageHR: 80bpm Rhythm : NSR INDICATION Cardiomyopathy Surgery/Intervention CABG: RISK FACTORS Diabetes 2D DIMENSIONS RVDd3.2 (2.9-3.5cm)Left Atrium(2D)4.2 (1.6-4.0cm) IVSd0.7 (0.7-1.1cm)Aortic Root(2D)2.3 (2.0-3.7cm) LVDd5.2 (3.9-5.9cm)LVOT Diameter1.7 (1.8-2.4cm) PWd1.0 (0.7-1.1cm)LVDs3.8 (2.5-4.0cm) FS (%) 26.6 %SV66.1 ml LVEF(%)52.0 (>50%) M-Mode DIMENSIONS Left Atrium(MM)4.20 (2.5-4.0cm)Aortic Root2.68 (2.2-3.7cm) Aortic Valve AoV Peak Kaushal.209.3cm/sAoV VTI47.5cm AO Peak GR.17.5mmHgLVOT Peak Kaushal.117.2cm/s AO Mean GR.9mmHgAVA (VMAX)1.20cm2 TAYLOR (VTI)1.20cm2 Mitral Valve MV E Gppsthef529.6cm/sMV E Peak Gr.7mmHg MV DECEL [id number] A Czeyotet42.9cm/s MV E Mean Gr.3mmHgE/A Ratio1.9 MV A [id number] Pulmonary Valve PV Peak Zruzpnui57.3cm/s Tricuspid Valve TR P. [id number]/sRAP [id number] TR Peak Gr.31zqNjTZJX45qyHl LEFT VENTRICLE The left ventricle is normal size. There is normal left ventricular wall thickness. The left ventricu lar systolic function is mildly decreased. EF 45%. There is mild global hypokinesis. Septal motion emerson ggestive of conduction defect. Transmitral Doppler flow pattern is Grade II-pseudonormal filling buster mics. RIGHT VENTRICLE The right ventricle is moderately dilated. There is normal right ventricular wall thickness. The righ t ventricular systolic function is normal. ATRIA The left atrium is mildly dilated. The right atrium is mildly dilated. The interatrial septum is inta ct with no evidence for an atrial septal defect or patent foramen ovale as noted on 2-D or Doppler im aging. AORTIC VALVE The aortic valve is mildly calcified. The aortic valve is trileaflet. Doppler and Color Flow revealed no significant aortic regurgitation. There is mild valvular aortic stenosis. Calculated aortic valve area is 1.2 cm2 with maximum pressure gradient of 18 mmHg and mean pressure gradient of 9 mmHg. Ther e is no aortic valvular vegetation. MITRAL VALVE The mitral valve is thickened but opens well. There is no evidence of mitral valve prolapse. There is no mitral valve stenosis. Doppler and Color-flow revealed mild mitral regurgitation. TRICUSPID VALVE The tricuspid valve is normal in structure and function. Doppler and Color Flow revealed mild tricusp id regurgitation. There is moderate pulmonary hypertension. The PA pressure was estimated at 49 mmHg. There is no tricuspid valve prolapse or vegetation. There is no tricuspid valve stenosis. PULMONIC VALVE Doppler and Color Flow revealed no pulmonic valvular regurgitation. There is no pulmonic valvular elizabeth nosis. GREAT VESSELS The aortic root is normal in size. The ascending aorta is normal in size. The IVC is dilated and marilia apses <50% with inspiration. PERICARDIAL EFFUSION There is no evidence of significant pericardial effusion. Critical Notification Critical Value: No <Conclusion> The left ventricular systolic function is mildly decreased. EF 45%. There is mild global hypokinesis. Septal motion suggestive of conduction defect. The right ventricle is moderately dilated. There is mild valvular aortic stenosis. Calculated aortic valve area is 1.2 cm2 with maximum pressur e gradient of 18 mmHg and mean pressure gradient of 9 mmHg. Doppler and Color Flow revealed mild tricuspid regurgitation. There is moderate pulmonary hypertensio n. The PA pressure was estimated at 49 mmHg. Signed by : Kings Rodríguez, Electronically Approved : 08/14/2018 10:16:06
--- NOTE | 2018-08-14 10:30 | PDOC ---
TCOM NOTE TCOM studies were repeated today to see if attempts at revascularization had improved the distal flow and to evaluate at what level the perfusion normalized. The distal foot readings are in the 20s which unchanged and is not surprising in light of the persistent tibial artery disease. The distal leg readings are in the 30s. This is an average of 20 points lower than on August 05 but I would like to point out that the control on the right foot is also 20 points lower. I doubt that this is indicative of worsening disease on the left. However low percutaneous O2 sats are also consistent with the persistent tibial artery disease, but did not establish a level of healthy tissue perfusion. EDYTA AMBROSE MD Aug 14, 2018 10:30
[2018-08-14 11:00] VITALS: BP 145/60
--- NOTE | 2018-08-14 12:05 | CONS ---
DATE OF CONSULTATION: ATTENDING PHYSICIAN: Dr. Tai Pino. REASON FOR CONSULTATION: Abnormal chest x-ray and a cough. 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 She had abdominal aortogram on 08/06 and recanalization of the SFA. The patient has been in the hospital since the of this month. I have been asked to see her for evaluation of her cough and abnormal chest x-ray. The patient stated that the cough has been nonproductive and rarely she produces white sputum. No fever, no chills and no chest pains. She has occasional shortness of breath. She is not on home oxygen. She smoked only for 7 years. No history of deep vein thrombosis or pulmonary embolism. No headaches, no nausea, vomiting or diarrhea. She has some mild left lower extremity edema. Chest x-ray was reviewed from 08/12 and 08/13 and both were compared. She has persistent interstitial infiltrates bilaterally, but more in the right lower lobe. Cannot exclude the possibility of any fibrosis. I have been asked to see her for further evaluation. PAST MEDICAL HISTORY: Significant for history of CAD, CHF, her EF was 45% with a pulmonary artery pressure of 49. Minimal history of tobacco use, history of chronic renal insufficiency, CKD stage 3, diabetes and hypothyroidism. PAST SURGICAL HISTORY: CABG. FAMILY HISTORY: Alcohol abuse, heart disease and kidney disease. SOCIAL HISTORY: Smoked only for 7 years. ALLERGIES: PROPOXYPHENE. MEDICATIONS: Reviewed as listed in the MRAD including antibiotics and DuoNeb. REVIEW OF SYSTEMS: Twelve-point system obtained. Pertinent positives discussed in my history of present illness, otherwise noncontributory. All systems that were negative were reviewed as well. PHYSICAL EXAMINATION: VITAL SIGNS: Reviewed. She has a fever of 100.1. Blood pressure is stable. Pulse ox 90% on room air. HEENT: Sclerae nonicteric. NECK: Supple. LUNGS: With crackles at the left base. CARDIOVASCULAR: Regular rate and rhythm. ABDOMEN: Soft. EXTREMITIES: With edema on the left. LABORATORY DATA: Reviewed. BUN is 70 and creatinine 3.1. INR 1.2. White cell count is 8.6, hemoglobin 7.5 and platelets are 206. IMPRESSION: 1. Cough with low-grade fever and persistent interstitial infiltrates. Likely suspect interstitial pneumonia. However, we will obtain noncontrast CT chest to rule out any chronic interstitial lung disease and also to rule out any interstitial edema related to her cardiomyopathy with an EF of 45%. 2. No significant history of tobacco use. 3. 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 Awaiting surgery. 4. Acute kidney injury with worsening creatinine. She has underlying CKD stage 5. Mild cardiomyopathy with an EF of 45% with secondary pulmonary hypertension with a pulmonary artery systolic pressure of 49. RECOMMENDATIONS: 1. I have discussed with the RN and the patient. At this time, I would recommend continue with antibiotic per Infectious Disease recommendations. 2. Obtain noncontrast CT chest to better assess for pneumonia and also to rule out any chronic interstitial lung disease/fibrosis and to rule out any interstitial edema. 3. Once the CT chest is reviewed, we will make further recommendations. 4. Continue with present nebulizer treatments. 5. Monitor fever closely. 6. Follow Vascular Surgery recommendations. 7. Follow renal recommendation. LIS OLSON MD DR: ADONAY/breezy JOB#: [id number] / [id number] ALFONSO
--- NOTE | 2018-08-14 13:03 | PDOC ---
PROGRESS NOTES Objective Objective Vascular Surgery Follow Up: General: Awake and alert. Wants to go home. I have spoke with Dr.'s Mejia and Ashleigh regarding pt's current clinical status. Patient continues to be febrile (TMax 102.1) over past 3 days and now concern for pneumonia. LLE: left 1st toe without worsening of cellulitis or changes to dry gangrene. Does not appear to be a source of acute illness or febrile state. PROCEDURE: CHEST AP ONLY Portable chest, 08/13/2018: Comparison is made yesterday study. The heart size is normal. Bibasilar linear opacities suggesting atelectasis and/or scarring are unchanged. There is a mild retrocardiac left basilar opacity suggesting atelectasis/infiltrate. There is minimal unchanged basilar interstitial prominence. A faint unchanged nodular opacity is projected over the right upper chest laterally. There is unchanged blunting of the lateral costophrenic angles which may be due to scarring or a tiny amount pleural fluid. IMPRESSION: Persistent bilateral pulmonary opacities suggesting atelectasis/infiltrate superimposed upon scarring. Assessment/Plan: 1. Atherosclerosis of [place] arteries of left lower extremity with chronic, dry gangrenous ulceration of left great toe. - PTI SFA and popliteal on 08/10/18. Still has tibial occlusive disease without in-line flow to the great toe. On Plavix. - plan is for tibial intervention to be followed by left 1st toe amputation when/if renal function improves. Currently this plan is on hold. - may need to be planned intervention in the future as out-patient as long as toe remains non-infected. 2. Worsening acute on chronic renal failure. Nephrology following closely. CR up to 3.1 today. 3. Continue antibiotics per ID. Changes being made with persistent fever over past 3 days. Possible pneumonia? Pulm medicine now consulted. Awaiting CT chest. Vital Signs Date Time Temp Pulse Resp B/P (MAP) Pulse Ox O2 Delivery O2 Flow Rate FiO2 08/14/18 11:28 91 Room Air 08/14/18 11:00 98.2 72 16 145/60 (88) 98.2 08/09/18 15:00 2.0 Intake and Output 08/14/18 07:00 Intake Total 150 ml Balance 150 ml Intake Oral 150 ml # Voids 3 # Bowel Movements 1 Comment Review of Relevant I have reviewed the following items mimi (where applicable) has been applied. Labs Laboratory Tests Test 08/12/18 16:37 08/12/18 20:35 08/13/18 03:10 08/13/18 07:48 Glucose (Fingerstick) 190 mg/dL (70-99) 257 mg/dL (70-99) 198 mg/dL (70-99) White Blood Count 9.0 x10^3/uL (4.0-11.0) Red Blood Count 2.85 x10^6/uL (3.50-5.40) Hemoglobin 7.5 g/dL (12.0-15.5) Hematocrit 22.5 % (36.0-47.0) Mean Corpuscular Volume 79 fL (79-100) Mean Corpuscular Hemoglobin 26 pg (25-35) Mean Corpuscular Hemoglobin Concent 33 g/dL (31-37) Red Cell Distribution Width 14.7 % (11.5-14.5) Platelet Count 189 x10^3/uL (140-400) Neutrophils (%) (Auto) 84 % (31-73) Lymphocytes (%) (Auto) 8 % (24-48) Monocytes (%) (Auto) 6 % (0-9) Eosinophils (%) (Auto) 1 % (0-3) Basophils (%) (Auto) 1 % (0-3) Neutrophils # (Auto) 7.6 x10^3uL (1.8-7.7) Lymphocytes # (Auto) 0.8 x10^3/uL (1.0-4.8) Monocytes # (Auto) 0.6 x10^3/uL (0.0-1.1) Eosinophils # (Auto) 0.0 x10^3/uL (0.0-0.7) Basophils # (Auto) 0.1 x10^3/uL (0.0-0.2) Sodium Level 137 mmol/L (136-145) Potassium Level 4.2 mmol/L (3.5-5.1) Chloride Level 104 mmol/L (98-107) Carbon Dioxide Level 22 mmol/L (21-32) Anion Gap 11 (6-14) Blood Urea Nitrogen 54 mg/dL (7-20) Creatinine 2.8 mg/dL (0.6-1.0) Estimated GFR (Cockcroft-Gault) 17.1 Glucose Level 242 mg/dL (70-99) Calcium Level 8.2 mg/dL (8.5-10.1) Test 08/13/18 11:05 08/13/18 16:41 08/13/18 20:52 08/14/18 05:27 Glucose (Fingerstick) 223 mg/dL (70-99) 229 mg/dL (70-99) 294 mg/dL (70-99) White Blood Count 8.6 x10^3/uL (4.0-11.0) Red Blood Count 2.93 x10^6/uL (3.50-5.40) Hemoglobin 7.5 g/dL (12.0-15.5) Hematocrit 23.1 % (36.0-47.0) Mean Corpuscular Volume 79 fL (79-100) Mean Corpuscular Hemoglobin 26 pg (25-35) Mean Corpuscular Hemoglobin Concent 33 g/dL (31-37) Red Cell Distribution Width 15.1 % (11.5-14.5) Platelet Count 206 x10^3/uL (140-400) Neutrophils (%) (Auto) 71 % (31-73) Lymphocytes (%) (Auto) 17 % (24-48) Monocytes (%) (Auto) 8 % (0-9) Eosinophils (%) (Auto) 4 % (0-3) Basophils (%) (Auto) 1 % (0-3) Neutrophils # (Auto) 6.1 x10^3uL (1.8-7.7) Lymphocytes # (Auto) 1.4 x10^3/uL (1.0-4.8) Monocytes # (Auto) 0.7 x10^3/uL (0.0-1.1) Eosinophils # (Auto) 0.3 x10^3/uL (0.0-0.7) Basophils # (Auto) 0.1 x10^3/uL (0.0-0.2) Sodium Level 139 mmol/L (136-145) Potassium Level 4.1 mmol/L (3.5-5.1) Chloride Level 105 mmol/L (98-107) Carbon Dioxide Level 25 mmol/L (21-32) Anion Gap 9 (6-14) Blood Urea Nitrogen 70 mg/dL (7-20) Creatinine 3.1 mg/dL (0.6-1.0) Estimated GFR (Cockcroft-Gault) 15.2 Glucose Level 180 mg/dL (70-99) Calcium Level 9.1 mg/dL (8.5-10.1) Test 08/14/18 07:45 08/14/18 11:15 Glucose (Fingerstick) 142 mg/dL (70-99) 144 mg/dL (70-99) Laboratory Tests Test 08/13/18 16:41 08/13/18 20:52 08/14/18 05:27 08/14/18 07:45 Glucose (Fingerstick) 229 mg/dL (70-99) 294 mg/dL (70-99) 142 mg/dL (70-99) White Blood Count 8.6 x10^3/uL (4.0-11.0) Red Blood Count 2.93 x10^6/uL (3.50-5.40) Hemoglobin 7.5 g/dL (12.0-15.5) Hematocrit 23.1 % (36.0-47.0) Mean Corpuscular Volume 79 fL (79-100) Mean Corpuscular Hemoglobin 26 pg (25-35) Mean Corpuscular Hemoglobin Concent 33 g/dL (31-37) Red Cell Distribution Width 15.1 % (11.5-14.5) Platelet Count 206 x10^3/uL (140-400) Neutrophils (%) (Auto) 71 % (31-73) Lymphocytes (%) (Auto) 17 % (24-48) Monocytes (%) (Auto) 8 % (0-9) Eosinophils (%) (Auto) 4 % (0-3) Basophils (%) (Auto) 1 % (0-3) Neutrophils # (Auto) 6.1 x10^3uL (1.8-7.7) Lymphocytes # (Auto) 1.4 x10^3/uL (1.0-4.8) Monocytes # (Auto) 0.7 x10^3/uL (0.0-1.1) Eosinophils # (Auto) 0.3 x10^3/uL (0.0-0.7) Basophils # (Auto) 0.1 x10^3/uL (0.0-0.2) Sodium Level 139 mmol/L (136-145) Potassium Level 4.1 mmol/L (3.5-5.1) Chloride Level 105 mmol/L (98-107) Carbon Dioxide Level 25 mmol/L (21-32) Anion Gap 9 (6-14) Blood Urea Nitrogen 70 mg/dL (7-20) Creatinine 3.1 mg/dL (0.6-1.0) Estimated GFR (Cockcroft-Gault) 15.2 Glucose Level 180 mg/dL (70-99) Calcium Level 9.1 mg/dL (8.5-10.1) Test 08/14/18 11:15 Glucose (Fingerstick) 144 mg/dL (70-99) Microbiology 08/13/18 Blood Culture - Preliminary, Resulted NO GROWTH AFTER 1 DAY Medications Current Medications Aspirin (Ecotrin) 81 mg DAILY PO Last administered on 08/14/18at 08:18; Start at 15:00 Atorvastatin Calcium (Lipitor) 40 mg HS PO Last administered on 08/13/18at 20:42 ; Start 08/05/18 at 21:00 Carvedilol (Coreg) 3.125 mg BIDWMEALS PO ; Start 08/05/18 at 17:00; Status UNV Lisinopril (Prinivil) 40 mg DAILY PO ; Start 08/05/18 at 15:00; Stop 08/05/18 at 17:02; Status DC Metoprolol Tartrate (Lopressor) 12.5 mg BID PO Last administered on 08/14/18at 08:18; Start 08/05/18 at 21:00 Sodium Bicarbonate (Sodium Bicarbonate) 650 mg TID PO Last administered on 08/14at 08:18; Start 08/05/18 at 15:00 Non-Formulary Medication (Amlodipine Besylate/ Benazepril (Amlodipine- Benazepril 5-20 Mg)) 1 cap DAILY PO ; Start 08/06/18 at 09:00; Status UNV Insulin Glargine (Lantus) 20 units DAILY SQ ; Start 08/05/18 at 15:00; Stop 02/13 at 15:00; Status DC Levothyroxine Sodium (Synthroid) 25 mcg DAILY06 PO Last administered on at 06:01; Start 08/05/18 at 15:00 Levothyroxine Sodium (Synthroid) 200 mcg DAILY06 PO Last administered on at 06:01; Start 08/05/18 at 15:00 Non-Formulary Medication (Liraglutide (Victoza 3-Yaniv)) 1.8 mg DAILY SQ ; Start 08/06/18 at 09:00; Status UNV Metolazone (Zaroxolyn) 5 mg DAILY PO ; Start 08/05/18 at 15:00; Stop 08/05/18 at 17:02; Status DC Multivitamins (Thera M Plus) 1 tab DAILY PO Last administered on 08/14/18at 08: 20; Start 08/05/18 at 15:00 Pramipexole Dihydrochloride (miraPEX) 0.25 mg DAILY PO Last administered on at 08:19; Start 08/05/18 at 15:00 Pregabalin (Lyrica) 150 mg BID PO Last administered on 08/13/18at 20:40; Start 08/05/18 at 21:00 Saliva Substitute (Biotene Moisturizing Mouth) 1 spray BID PO Last administered on 08/08/18at 20:17; Start 08/05/18 at 21:00; Stop 08/11/18 at 05:43 ; Status DC Piperacillin Sod/ Tazobactam Sod (Zosyn Per Pharmacy) 1 each PRN DAILY PRN MC SEE COMMENTS; Start 08/05/18 at 13:45; Stop 08/13/18 at 11:00; Status DC Piperacillin Sod/ Tazobactam Sod 3.375 gm/Sodium Chloride 50 ml @ 100 mls/hr Q6HRS IV Last administered on 08/08/18at 12:44; Start 08/05/18 at 14:30; Stop at 13:10; Status DC Amlodipine Besylate (Norvasc) 5 mg DAILY PO Last administered on 08/11/18at 08: 33; Start 08/05/18 at 15:00; Stop 08/11/18 at 08:49; Status DC Insulin Glargine (Lantus) 20 units HS SQ Last administered on 08/09/18at 20:58; Start 08/05/18 at 21:00; Stop 08/10/18 at 17:15; Status DC Sodium Chloride 1,000 ml @ 100 mls/hr Q10H IV Last administered on 08/13/18at 03:55; Start 08/05/18 at 15:00; Stop 08/14/18 at 03:55; Status DC Lisinopril (Prinivil) 40 mg DAILY PO ; Start 08/08/18 at 09:00; Stop 08/08/18 at 09:00; Status DC Metolazone (Zaroxolyn) 5 mg DAILY PO ; Start 08/08/18 at 09:00; Stop 08/08/18 at 09:00; Status DC Acetaminophen (Tylenol) 325 mg PRN Q6HRS PRN PO MILD PAIN / TEMP; Start at 18:30; Status UNV Acetaminophen (Tylenol) 650 mg PRN Q6HRS PRN PO pain; Start 08/05/18 at 18:30; Status UNV Acetaminophen (Tylenol) 650 mg PRN Q6HRS PRN PO MODERATE PAIN Last administered on 08/10/18at 21:04; Start 08/05/18 at 18:30 Acetaminophen (Tylenol) 325 mg PRN Q6HRS PRN PO MILD PAIN / TEMP Last administered on 08/12/18at 23:02; Start 08/05/18 at 18:30 Fentanyl Citrate (Fentanyl 2ml Vial) 25 mcg PRN Q5MIN PRN IV MILD PAIN; Start 08/07/18 at 07:00; Stop 08/08/18 at 06:59; Status DC Fentanyl Citrate (Fentanyl 2ml Vial) 50 mcg PRN Q5MIN PRN IV MODERATE TO SEVERE PAIN; Start 08/07/18 at 07:00; Stop 08/08/18 at 06:59; Status DC Morphine Sulfate (Morphine Sulfate) 1 mg PRN Q10MIN PRN IV SEVERE PAIN; Start 08/07/18 at 07:00; Stop 08/08/18 at 06:59; Status DC Ringer's Solution 1,000 ml @ 30 mls/hr Q24H IV ; Start 08/07/18 at 07:00; Stop 08/07/18 at 18:59; Status DC Lidocaine HCl (Xylocaine-Mpf 1% 2ml Vial) 2 ml PRN 1X PRN ID PRIOR TO IV START ; Start 08/07/18 at 07:00; Stop 08/08/18 at 06:59; Status DC Hydromorphone HCl (Dilaudid) 0.5 mg PRN Q10MIN PRN IV SEV PAIN, Second choice; Start 08/07/18 at 07:00; Stop 08/08/18 at 06:59; Status DC Prochlorperazine Edisylate (Compazine) 5 mg PACU PRN PRN IV NAUSEA, MRX1; Start 08/07/18 at 07:00; Stop 08/08/18 at 06:59; Status DC Cefazolin Sodium 1 gm/Sodium Chloride 250 ml @ 250 mls/hr 1X ONCE IV ; Start 08/07/18 at 06:00; Stop 08/07/18 at 06:59; Status DC Dextrose (Dextrose 50%-Water Syringe) 25 gm STK-MED ONCE IV ; Start 08/06/18 at 11:29; Stop 08/06/18 at 11:30; Status DC Dextrose (Dextrose 50%-Water Syringe) 25 gm 1X ONCE IV Last administered on 03/16at 11:40; Start 08/06/18 at 11:45; Stop 08/06/18 at 11:46; Status DC Iodixanol (Visipaque 320) 100 ml STK-MED ONCE .ROUTE ; Start 08/06/18 at 12:54; Stop 08/06/18 at 12:55; Status DC Lidocaine/Sodium Bicarbonate (Buffered Lidocaine 1%) 3 ml STK-MED ONCE .ROUTE ; Start 08/06/18 at 12:55; Stop 08/06/18 at 12:56; Status DC Heparin Sodium/ Sodium Chloride 1,500 ml @ As Directed STK-MED ONCE .ROUTE ; Start 08/06/18 at 12:55; Stop 08/06/18 at 12:56; Status DC Midazolam HCl (Versed) 2 mg STK-MED ONCE .ROUTE ; Start 08/06/18 at 13:10; Stop 08/06/18 at 13:11; Status DC Fentanyl Citrate (Fentanyl 2ml Vial) 100 mcg STK-MED ONCE .ROUTE ; Start at 13:10; Stop 08/06/18 at 13:11; Status DC Heparin Sodium (Porcine) (Heparin Sodium) 10,000 unit STK-MED ONCE .ROUTE ; Start 08/06/18 at 13:10; Stop 08/06/18 at 13:11; Status DC Heparin Sodium/ Sodium Chloride (HEPARIN for ARTERIAL LINE FLUSH) 1,000 unit 1X ONCE IART Last administered on 08/06/18at 13:15; Start 08/06/18 at 13:15; Stop 08/06/18 at 13:16; Status DC Lidocaine/Sodium Bicarbonate (Buffered Lidocaine 1%) 3 ml 1X ONCE IJ Last administered on 08/06/18 13:15; Start 08/06/18 at 13:15; Stop 08/06/18 at 13:16 ; Status DC Midazolam HCl (Versed) 2 mg 1X ONCE IV Last administered on 08/06/18at 13:15; Start 08/06/18 at 13:15; Stop 08/06/18 at 13:16; Status DC Fentanyl Citrate (Fentanyl 2ml Vial) 100 mcg 1X ONCE IV Last administered on 13:15; Start 08/06/18 at 13:15; Stop 08/06/18 at 13:16; Status DC Iodixanol (Visipaque 320) 100 ml 1X ONCE IART Last administered on 08/06/18at 13:15; Start 08/06/18 at 13:15; Stop 08/06/18 at 13:16; Status DC Heparin Sodium (Porcine) (Heparin Sodium) 5,000 unit 1X ONCE IV Last administered on 08/06/18 14:00; Start 08/06/18 at 14:00; Stop 08/06/18 at 14:01 ; Status DC Hydralazine HCl (Apresoline Inj) 20 mg STK-MED ONCE .ROUTE ; Start 08/06/18 at 14:27; Stop 08/06/18 at 14:28; Status DC Hydralazine HCl (Apresoline Inj) 10 mg 1X ONCE IVP Last administered on at 14:30; Start 08/06/18 at 14:30; Stop 08/06/18 at 14:33; Status DC Insulin Human Lispro (HumaLOG) 0-7 UNITS TIDWMEALS SQ Last administered on 08/13 17:17; Start 08/06/18 at 18:00 Dextrose (Dextrose 50%-Water Syringe) 12.5 gm PRN Q15MIN PRN IV SEE COMMENTS Last administered on 08/10/18at 08:21; Start 08/06/18 at 17:45 Lactobacillus Rhamnosus (Culturelle) 1 cap BID PO Last administered on 08:19; Start 08/07/18 at 14:00 Piperacillin Sod/ Tazobactam Sod 2.25 gm/Sodium Chloride 50 ml @ 100 mls/hr Q6HRS IV Last administered on 08/13/18 06:08; Start 08/08/18 at 18:00; Stop at 10:58; Status DC Insulin Glargine (Lantus) 18 units HS SQ Last administered on 08/13/18at 21:08; Start 08/10/18 at 21:00 Saliva Substitute (Biotene Moisturizing Mouth) 1 spray PRN BID PRN PO DRY MOUTH ; Start 08/11/18 at 05:45 Amlodipine Besylate (Norvasc) 10 mg DAILY PO Last administered on 08/14/18 08: 19; Start 08/11/18 at 09:00 Amlodipine Besylate (Norvasc) 5 mg 1X ONCE PO Last administered on 08/11/18at 09:07; Start 08/11/18 at 09:00; Stop 08/11/18 at 09:01; Status DC Ferrous Sulfate (Feosol) 325 mg DAILYWBKFT PO Last administered on 08/14/18 08 :19; Start 08/12/18 at 08:00 Clopidogrel Bisulfate (Plavix) 75 mg DAILYWBKFT PO Last administered on 08:19; Start 08/11/18 at 17:00 Darbepoetin Galileo (Aranesp) 60 mcg 1X ONCE SQ Last administered on 08/11/18at 17 :47; Start 08/11/18 at 18:30; Stop 08/11/18 at 18:31; Status DC Albuterol/ Ipratropium (Duoneb) 3 ml RTQID NEB Last administered on 08/14/18at 11:13; Start 08/12/18 at 16:15 Benzonatate (Tessalon Perle) 100 mg [id number] PO Last administered on 08/14/18 08 :18; Start 08/12/18 at 16:15 Guaifenesin (MUCINEX ER with DM) 1 tab BID PO Last administered on 4/19/19at 08 :19; Start 08/12/18 at 21:00 Cefepime HCl (Maxipime) 1 gm Q12HR IVP Last administered on 08/14/18 08:19; Start 08/13/18 at 21:00 Metronidazole (Flagyl) 500 mg Q12HR PO Last administered on 08/14/18 08:18; Start 08/13/18 at 11:00 Furosemide (Lasix) 20 mg 1X ONCE IVP Last administered on 08/13/18at 12:08; Start 08/13/18 at 11:15; Stop 08/13/18 at 11:16; Status DC Active Scripts Active Reported Cipro (Ciprofloxacin Hcl) 250 Mg Tablet 250 Mg PO BID 7 Days Bactrim Ds Tablet (Sulfamethoxazole/Trimethoprim) 1 Each Tablet 1 Each PO BID Lidocaine 1 Each Adh..patch 1 Each TP DAILY Levothyroxine Sodium 25 Mcg Tablet 25 Mcg PO DAILYAC Levothyroxine Sodium 200 Mcg Tablet 200 Mcg PO DAILYAC Metolazone 5 Mg Tablet 5 Mg PO DAILY Biotene Oralbalance (Saliva Stimulant Agents Comb.2) 44.3 Ml Liquid 44.3 Ml MM BID Tresiba Flextouch U-200 (Insulin Degludec) 200 Unit/1 Ml Insuln.pen 20 Unit SQ DAILY Metoprolol Tartrate 25 Mg Tablet 12.5 Mg PO BID Lisinopril 40 Mg Tablet 40 Mg PO DAILY Metformin Hcl 500 Mg Tablet 500 Mg PO DAILYWBKFT Lyrica (Pregabalin) 150 Mg Capsule 150 Mg PO BID 30 Days Amlodipine-Benazepril 5-20 Mg (Amlodipine Besylate/Benazepril) 1 Each Capsule 1 Cap PO DAILY Sodium Bicarbonate 650 Mg Tablet 650 Mg PO TID Mirapex (Pramipexole Di-Hcl) 0.25 Mg Tablet 1 Tab PO DAILY Multivitamins (Multivitamin) 1 Each Tablet 1 Tab PO DAILY Victoza 3-Yaniv (Liraglutide) 0.6 Mg/0.1 Ml Pen.injctr 1.8 Mg SQ DAILY Carvedilol (Carvedilol) 3.125 Mg Tablet 1 Tab PO BID Aspir 81 (Aspirin) 81 Mg Tablet.dr 81 Mg PO Atorvastatin Calcium 40 Mg Tablet 40 Mg PO HS Vitals/I & O Vital Sign - Last 24 Hours 08/13/18 08/13/18 08/13/18/18/19 15:00 15:31 19:00 20:00 Temp 99.4 99.4 Pulse 90 90 Resp 16 16 B/P (MAP) 147/55 (85) 161/67 (98) Pulse Ox 91 90 O2 Delivery Room Air Room Air Room Air Room Air 08/13/18 08/13/18 08/13/18 08/14/18 20:41 20:54 23:00 03:00 Temp 100.2 100.1 100.2 100.1 Pulse 90 85 92 Resp 16 16 B/P (MAP) 161/67 141/52 (81) 129/51 (77) Pulse Ox 90 90 89 O2 Delivery Room Air Room Air Room Air 08/14/18 08/14/18 08/14/18 08/14/18 07:00 07:19 08:00 08:18 Temp 99.3 99.3 Pulse 97 97 Resp 18 B/P (MAP) 140/57 (84) 140/57 Pulse Ox 90 90 O2 Delivery Nasal Cannula Room Air Room Air 08/14/18 08/14/18 08/14/18 08:19 11:00 11:28 Temp 98.2 98.2 Pulse 97 72 Resp 16 B/P (MAP) 140/57 145/60 (88) Pulse Ox 92 91 O2 Delivery Room Air Room Air Intake and Output 08/13/18 08/13/18 08/14/18 15:00 23:00 07:00 Intake Total 150 ml 0 ml Balance 150 ml 0 ml GABRIELLE ESPARZA APRN Aug 14, 2018 13:02
--- NOTE | 2018-08-14 13:13 | RAD ---
CT of the chest without contrast, 08/14/2018: HISTORY: Congestive heart failure, pneumonia, interstitial lung disease Noncontrast scans were obtained as requested. There has been a previous median sternotomy. There is calcific plaquing of the thoracic aorta and its branches. Moderate coronary artery calcifications are present. A couple of mildly enlarged mediastinal lymph nodes are seen. The largest of these lies in the precarinal region and measures 1.5 cm in short axis dimension. There are small bilateral pleural effusions. There is mild underlying atelectasis posteriorly in both lung bases. There are additional streaky opacities in the lingula and right middle lobe likely representing atelectasis. There are also mild patchy groundglass opacities in both lungs and mild interlobular septal thickening. Calcified granulomata are present in both lungs and at the right hilum. There is a small focal parenchymal consolidation present medially in the right upper lobe. There is subcutaneous edema, particularly in the flank regions suggesting anasarca. There is a small area of increased density along the posterior wall the gallbladder, incompletely visualized on these chest scans. This could represent sludge or calculi. IMPRESSION: 1. Small bilateral pleural effusions with mild to moderate bibasilar atelectasis. 2. Mild patchy groundglass opacities with mild interlobular septal thickening, most likely representing mild pulmonary edema. 4. Mild focal parenchymal consolidation medially in the right upper lobe. 5. Coronary artery disease 6. Mild mediastinal adenopathy. 7. Possible cholelithiasis. 8. Anasarca. PQRS Compliance Statement: One or more of the following individualized dose reduction techniques were utilized for this examination: 1. Automated exposure control 2. Adjustment of the mA and/or kV according to patient size 3. Use of iterative reconstruction technique Electronically signed by: Ricardo Carlson MD (08/14/2018 1:10 PM) [facility]
[2018-08-14 14:47] LABS: BILIRUBIN,URINE NEGATIVE (NEG); CLARITY,URINE CLEAR; COLOR,URINE YELLOW; NITRITE,URINE NEGATIVE (NEG); PH,URINE 6.5; PROTEIN,URINE >=300 mg/dL (NEG-TRACE); UROBILINOGEN,URINE 0.2 mg/dL (0.2 mg/dL)
[2018-08-14 15:00] VITALS: BP 105/54
[2018-08-14 15:00] LABS: BACTERIA,URINE FEW /HPF (0-FEW); SQUAMOUS EPITHELIAL CELL,UR MANY /LPF; WBC,URINE 20-40 /HPF (0-4)
--- NOTE | 2018-08-14 15:30 | RAD ---
RENAL COMPLETE BILATERAL History: Acute kidney infection on chronic kidney disease Comparison: May 17, 2016 Findings: Multiple sonographic images of the kidneys and retroperitoneal structures are submitted. Incidental note is made of bilateral pleural effusions. Right kidney measured 10.6 x 4.6 x 5.7 cm. Left kidney measured 10.4 x 3.9 x 5 cm. There is minimal fluid about the anterior aspect of the right kidney. There is no hydronephrosis of either kidney. Urinary bladder morphology is within normal limits. There is no significant postvoid residual after patient urinated. IMPRESSION: 1. There is no hydronephrosis of either kidney. Patient voided to completion. 2. Incidental note is made of pleural effusions bilaterally. There is minimal fluid about the anterior margin of the right kidney. Electronically signed by: Brady Fernandez MD (08/14/2018 3:27 PM) [id number]
--- NOTE | 2018-08-14 15:52 | RAD ---
Portable chest, 08/14/2018: HISTORY: Fever, cough Comparison is made to yesterday's study. The heart size is unchanged. There are mild patchy bilateral pulmonary infiltrates with slight interval worsening on the right. Areas of linear atelectasis versus in the lung bases. A small amount of right-sided pleural fluid is now evident. The patient's known small left pleural effusion is not visible radiographically. IMPRESSION: Mild patchy pulmonary infiltrates, bibasilar linear atelectasis and small pleural effusions with slight interval worsening on the right since yesterday's study. Electronically signed by: Ricardo Carlson MD (08/14/2018 3:49 PM) [facility]
[2018-08-14 19:00] VITALS: BP 144/65
[2018-08-14] MEDS: ATORVASTATIN CALCIUM 40 MG TABLET. PO SCH (20:58)
[2018-08-14] MEDS: DOXYCYCLINE HYCLATE 100 MG TABLET PO SCH (21:00)
[2018-08-14] MEDS: INSULIN GLARGINE 300 UNITS/3 ML INSULN.PEN. SQ SCH (21:13)
[2018-08-14 23:00] VITALS: BP 138/87
[2018-08-15 03:00] VITALS: BP 142/57
[2018-08-15 05:32] LABS: BASO # 0.1 x10^3/uL (0.0-0.2); BASO % 1 % (0-3); EOS # 0.4 x10^3/uL (0.0-0.7); EOS % 5 % (0-3); HEMATOCRIT 22.5 % (36.0-47.0); HEMOGLOBIN 7.6 g/dL (12.0-15.5); LYMPH # 1.5 x10^3/uL (1.0-4.8); LYMPH % 19 % (24-48); MEAN CORPUSCULAR HEMOGLOBIN 27 pg (25-35); MEAN CORPUSCULAR HGB CONC 34 g/dL (31-37); MEAN CORPUSCULAR VOLUME 78 fL (79-100); MONO # 0.7 x10^3/uL (0.0-1.1); MONO % 9 % (0-9); NEUT # 5.1 x10^3uL (1.8-7.7); NEUT % 66 % (31-73); PLATELET COUNT 228 x10^3/uL (140-400); RED BLOOD COUNT 2.87 x10^6/uL (3.50-5.40); WHITE BLOOD COUNT 7.8 x10^3/uL (4.0-11.0)
[2018-08-15 05:47] LABS: CALCIUM 9.1 mg/dL (8.5-10.1); GFR 15.8; POTASSIUM 4.1 mmol/L (3.5-5.1)
[2018-08-15] MEDS: LEVOTHYROXINE 100 MCG TABLET PO SCH (06:16)
[2018-08-15] MEDS: LEVOTHYROXINE 25 MCG TABLET. PO SCH (06:16)
[2018-08-15 07:00] VITALS: BP 148/57
[2018-08-15] MEDS: IPRATRPIUM/ALBUTEROL 0.5/2.5MG 3 ML NEBU. NEB SCH ×4 (07:47→18:15)
[2018-08-15] MEDS: INSULIN LISPRO 300 UNITS/3 ML INSULN.PEN. SQ SCH ×3 (08:00→17:17)
--- NOTE | 2018-08-15 08:17 | PDOC ---
PULMONARY PROGRESS NOTES Subjective sob better, has occ cough, better, no pain Vitals Vital Signs Date Time Temp Pulse Resp B/P (MAP) Pulse Ox O2 Delivery O2 Flow Rate FiO2 08/15/18 07:49 Room Air 08/15/18 03:00 98.3 79 18 142/57 (85) 91 2.0 98.3 ROS: No Nausea General: Alert, No acute distress HEENT: Other (nc at perrl) Lungs: Crackles Cardiovascular: S1, S2 Abdomen: Soft, Non-tender Neuro Exam: Alert Extremities: Other (edema) Skin: Warm Labs Laboratory Tests Test 08/13/18 11:05 08/13/18 16:41 08/13/18 20:52 08/14/18 05:27 Glucose (Fingerstick) 223 mg/dL (70-99) 229 mg/dL (70-99) 294 mg/dL (70-99) White Blood Count 8.6 x10^3/uL (4.0-11.0) Red Blood Count 2.93 x10^6/uL (3.50-5.40) Hemoglobin 7.5 g/dL (12.0-15.5) Hematocrit 23.1 % (36.0-47.0) Mean Corpuscular Volume 79 fL (79-100) Mean Corpuscular Hemoglobin 26 pg (25-35) Mean Corpuscular Hemoglobin Concent 33 g/dL (31-37) Red Cell Distribution Width 15.1 % (11.5-14.5) Platelet Count 206 x10^3/uL (140-400) Neutrophils (%) (Auto) 71 % (31-73) Lymphocytes (%) (Auto) 17 % (24-48) Monocytes (%) (Auto) 8 % (0-9) Eosinophils (%) (Auto) 4 % (0-3) Basophils (%) (Auto) 1 % (0-3) Neutrophils # (Auto) 6.1 x10^3uL (1.8-7.7) Lymphocytes # (Auto) 1.4 x10^3/uL (1.0-4.8) Monocytes # (Auto) 0.7 x10^3/uL (0.0-1.1) Eosinophils # (Auto) 0.3 x10^3/uL (0.0-0.7) Basophils # (Auto) 0.1 x10^3/uL (0.0-0.2) Sodium Level 139 mmol/L (136-145) Potassium Level 4.1 mmol/L (3.5-5.1) Chloride Level 105 mmol/L (98-107) Carbon Dioxide Level 25 mmol/L (21-32) Anion Gap 9 (6-14) Blood Urea Nitrogen 70 mg/dL (7-20) Creatinine 3.1 mg/dL (0.6-1.0) Estimated GFR (Cockcroft-Gault) 15.2 Glucose Level 180 mg/dL (70-99) Calcium Level 9.1 mg/dL (8.5-10.1) Test 08/14/18 07:45 08/14/18 11:15 08/14/18 13:56 08/14/18 16:51 Glucose (Fingerstick) 142 mg/dL (70-99) 144 mg/dL (70-99) 330 mg/dL (70-99) Urine Collection Type Unknown Urine Color Yellow Urine Clarity Clear Urine pH 6.5 Urine Specific [place] 1.015 Urine Protein >=300 mg/dL (NEG-TRACE) Urine Glucose (UA) Negative mg/dL (NEG) Urine Ketones (Stick) Negative mg/dL (NEG) Urine Blood Trace (NEG) Urine Nitrite Negative (NEG) Urine Bilirubin Negative (NEG) Urine Urobilinogen Dipstick 0.2 mg/dL (0.2 mg/dL) Urine Leukocyte Esterase Moderate (NEG) Urine RBC 3-5 /HPF (0-2) Urine WBC 20-40 /HPF (0-4) Urine Squamous Epithelial Cells Many /LPF Urine Bacteria Few /HPF (0-FEW) Test 08/14/18 20:59 08/15/18 04:30 08/15/18 07:44 Glucose (Fingerstick) 137 mg/dL (70-99) 89 mg/dL (70-99) White Blood Count 7.8 x10^3/uL (4.0-11.0) Red Blood Count 2.87 x10^6/uL (3.50-5.40) Hemoglobin 7.6 g/dL (12.0-15.5) Hematocrit 22.5 % (36.0-47.0) Mean Corpuscular Volume 78 fL (79-100) Mean Corpuscular Hemoglobin 27 pg (25-35) Mean Corpuscular Hemoglobin Concent 34 g/dL (31-37) Red Cell Distribution Width 15.0 % (11.5-14.5) Platelet Count 228 x10^3/uL (140-400) Neutrophils (%) (Auto) 66 % (31-73) Lymphocytes (%) (Auto) 19 % (24-48) Monocytes (%) (Auto) 9 % (0-9) Eosinophils (%) (Auto) 5 % (0-3) Basophils (%) (Auto) 1 % (0-3) Neutrophils # (Auto) 5.1 x10^3uL (1.8-7.7) Lymphocytes # (Auto) 1.5 x10^3/uL (1.0-4.8) Monocytes # (Auto) 0.7 x10^3/uL (0.0-1.1) Eosinophils # (Auto) 0.4 x10^3/uL (0.0-0.7) Basophils # (Auto) 0.1 x10^3/uL (0.0-0.2) Sodium Level 136 mmol/L (136-145) Potassium Level 4.1 mmol/L (3.5-5.1) Chloride Level 101 mmol/L (98-107) Carbon Dioxide Level 24 mmol/L (21-32) Anion Gap 11 (6-14) Blood Urea Nitrogen 74 mg/dL (7-20) Creatinine 3.0 mg/dL (0.6-1.0) Estimated GFR (Cockcroft-Gault) 15.8 Glucose Level 98 mg/dL (70-99) Calcium Level 9.1 mg/dL (8.5-10.1) Laboratory Tests Test 08/14/18 11:15 08/14/18 13:56 08/14/18 16:51 08/14/18 20:59 Glucose (Fingerstick) 144 mg/dL (70-99) 330 mg/dL (70-99) 137 mg/dL (70-99) Urine Collection Type Unknown Urine Color Yellow Urine Clarity Clear Urine pH 6.5 Urine Specific [place] 1.015 Urine Protein >=300 mg/dL (NEG-TRACE) Urine Glucose (UA) Negative mg/dL (NEG) Urine Ketones (Stick) Negative mg/dL (NEG) Urine Blood Trace (NEG) Urine Nitrite Negative (NEG) Urine Bilirubin Negative (NEG) Urine Urobilinogen Dipstick 0.2 mg/dL (0.2 mg/dL) Urine Leukocyte Esterase Moderate (NEG) Urine RBC 3-5 /HPF (0-2) Urine WBC 20-40 /HPF (0-4) Urine Squamous Epithelial Cells Many /LPF Urine Bacteria Few /HPF (0-FEW) Test 08/15/18 04:30 08/15/18 07:44 White Blood Count 7.8 x10^3/uL (4.0-11.0) Red Blood Count 2.87 x10^6/uL (3.50-5.40) Hemoglobin 7.6 g/dL (12.0-15.5) Hematocrit 22.5 % (36.0-47.0) Mean Corpuscular Volume 78 fL (79-100) Mean Corpuscular Hemoglobin 27 pg (25-35) Mean Corpuscular Hemoglobin Concent 34 g/dL (31-37) Red Cell Distribution Width 15.0 % (11.5-14.5) Platelet Count 228 x10^3/uL (140-400) Neutrophils (%) (Auto) 66 % (31-73) Lymphocytes (%) (Auto) 19 % (24-48) Monocytes (%) (Auto) 9 % (0-9) Eosinophils (%) (Auto) 5 % (0-3) Basophils (%) (Auto) 1 % (0-3) Neutrophils # (Auto) 5.1 x10^3uL (1.8-7.7) Lymphocytes # (Auto) 1.5 x10^3/uL (1.0-4.8) Monocytes # (Auto) 0.7 x10^3/uL (0.0-1.1) Eosinophils # (Auto) 0.4 x10^3/uL (0.0-0.7) Basophils # (Auto) 0.1 x10^3/uL (0.0-0.2) Sodium Level 136 mmol/L (136-145) Potassium Level 4.1 mmol/L (3.5-5.1) Chloride Level 101 mmol/L (98-107) Carbon Dioxide Level 24 mmol/L (21-32) Anion Gap 11 (6-14) Blood Urea Nitrogen 74 mg/dL (7-20) Creatinine 3.0 mg/dL (0.6-1.0) Estimated GFR (Cockcroft-Gault) 15.8 Glucose Level 98 mg/dL (70-99) Calcium Level 9.1 mg/dL (8.5-10.1) Glucose (Fingerstick) 89 mg/dL (70-99) Medications Active Scripts Medications Dose Route/Sig Max Daily Dose Days Date Category Cipro (Ciprofloxacin Hcl) 250 Mg Tablet 250 Mg PO BID 7 08/05/18 Reported Bactrim Ds Tablet (Sulfamethoxazole/Trimethoprim) 1 Each Tablet 1 Each PO BID 08/05/18 Reported Lidocaine 1 Each Adh..patch 1 Each TP DAILY 08/05/18 Reported Levothyroxine Sodium 25 Mcg Tablet 25 Mcg PO DAILYAC 08/05/18 Reported Levothyroxine Sodium 200 Mcg Tablet 200 Mcg PO DAILYAC 08/05/18 Reported Metolazone 5 Mg Tablet 5 Mg PO DAILY 08/05/18 Reported Biotene Oralbalance (Saliva Stimulant Agents Comb.2) 44.3 Ml Liquid 44.3 Ml MM BID 08/05/18 Reported Tresiba Flextouch U-200 (Insulin Degludec) 200 Unit/1 Ml Insuln.pen 20 Unit SQ DAILY 08/05/18 Reported Metoprolol Tartrate 25 Mg Tablet 12.5 Mg PO BID 08/05/18 Reported Lisinopril 40 Mg Tablet 40 Mg PO DAILY 08/05/18 Reported Metformin Hcl 500 Mg Tablet 500 Mg PO DAILYWBKFT 08/05/18 Reported Lyrica (Pregabalin) 150 Mg Capsule 150 Mg PO BID 30 08/05/18 Reported Amlodipine-Benazepril 5-20 Mg (Amlodipine Besylate/Benazepril) 1 Each Capsule 1 Cap PO DAILY 08/05/18 Reported Sodium Bicarbonate 650 Mg Tablet 650 Mg PO TID 12/03/17 Reported Mirapex (Pramipexole Di-Hcl) 0.25 Mg Tablet 1 Tab PO DAILY 05/17/16 Reported Multivitamins (Multivitamin) 1 Each Tablet 1 Tab PO DAILY 05/16/16 Reported Victoza 3-Yaniv (Liraglutide) 0.6 Mg/0.1 Ml Pen.injctr 1.8 Mg SQ DAILY 05/16/16 Reported Carvedilol (Carvedilol) 3.125 Mg Tablet 1 Tab PO BID 05/16/16 Reported Aspir 81 (Aspirin) 81 Mg Tablet.dr 81 Mg PO 12/26/14 Reported Atorvastatin Calcium 40 Mg Tablet 40 Mg PO HS 12/26/[address] 1. Small bilateral pleural effusions with mild to moderate bibasilar atelectasis. 2. Mild patchy groundglass opacities with mild interlobular septal thickening, most likely representing mild pulmonary edema. 4. Mild focal parenchymal consolidation medially in the right upper lobe. 5. Coronary artery disease 6. Mild mediastinal adenopathy. 7. Possible cholelithiasis. 8. Anasarca. Impression . IMPRESSION: 1. Cough with low-grade fever and persistent interstitial infiltrates. Likely suspect interstitial pneumonia. s/p CT chest, no ILD, chf 2. No significant history of tobacco use. 3. 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 Awaiting surgery. 4. Acute kidney injury with worsening creatinine. She has underlying CKD stage 5. Mild cardiomyopathy with an EF of 45% with secondary pulmonary hypertension with a pulmonary artery systolic pressure of 49. Fever pattern improving Plan . RECOMMENDATIONS: 1. continue with antibiotic per Infectious Disease recommendations. 2. CT chest reviewed, no ILD, chf, keep I<O. 3. Follow renal recommendation. 4. Continue with present nebulizer treatments. 5. Monitor fever closely. 6. Follow Vascular Surgery recommendations. FARHANA AGUERO MD Aug 15, 2018 08:17
[2018-08-15] MEDS: CLOPIDOGREL BISULFATE 75 MG TABLET PO SCH (08:22)
[2018-08-15] MEDS: PRAMIPEXOLE 0.25 MG TABLET. PO SCH (08:22)
[2018-08-15] MEDS: SODIUM BICARBONATE 650 MG TABLET. PO SCH ×3 (08:23→21:07)
[2018-08-15] MEDS: metroNIDAZOLE 500 MG TABLET PO SCH ×2 (08:23→21:06)
[2018-08-15] MEDS: LACTOBACILLUS RHAMNOSUS GG 1 CAPSULE. PO SCH ×2 (08:23→21:07)
[2018-08-15] MEDS: MULTIVITAMIN with MINERAL TABLET. PO SCH (08:23)
[2018-08-15] MEDS: BENZONATATE 100 MG CAPSULE. PO SCH ×3 (08:23→21:06)
[2018-08-15] MEDS: ASPIRIN ENTERIC COATED 81 MG TABLET.DR. PO SCH (08:24)
[2018-08-15] MEDS: amLODIPine BESYLATE 10 MG TABLET PO SCH (08:24)
[2018-08-15] MEDS: DOXYCYCLINE HYCLATE 100 MG TABLET PO SCH ×2 (08:24→21:06)
[2018-08-15] MEDS: METOPROLOL TART IMMED RELEASE 25 MG TABLET. PO SCH ×2 (08:25→21:06)
[2018-08-15] MEDS: PREGABALIN 75 MG CAPSULE PO SCH ×2 (08:27→21:00)
[2018-08-15] MEDS: CEFEPIME HCL IV Push 1 GM VIAL. IVP SCH ×2 (08:29→21:07)
[2018-08-15] MEDS: FERROUS SULFATE 325 MG TABLET. PO SCH (08:47)
[2018-08-15 11:00] VITALS: BP 126/51
[2018-08-15] MEDS: guaiFENesin DM 600/30MG 1 TAB TAB.ER.12H PO SCH ×2 (11:58→21:07)
--- NOTE | 2018-08-15 12:09 | PDOC ---
Infectious Disease Note Subjective Subjective No fevers last 24 hours Feeling alright, wants to go home Pain controlled Denies N/V/D/SOA ROS ROS per HPI Vital Sign Vital Signs Vital Signs Date Time Temp Pulse Resp B/P (MAP) Pulse Ox O2 Delivery O2 Flow Rate FiO2 08/15/18 11:16 94 Room Air 08/15/18 11:00 98.5 71 14 126/51 (76) 98.5 08/15/18 08:00 2.0 Physical Exam PHYSICAL EXAM GENERAL: Propped up in chair alert, smiling HEENT: Oral cavity clear NECK: Supple LUNGS: Clear. HEART: S1, S2 regular. ABDOMEN: Soft and nontender EXTREMITIES: LLE/pedal edema. Great toe dressing dry. DP difficult to palpate SKIN: No rash NEUROLOGIC: Alert and oriented x 3 Labs Lab Laboratory Tests Test 08/14/18 13:56 08/14/18 16:51 08/14/18 20:59 08/15/18 04:30 Urine Collection Type Unknown Urine Color Yellow Urine Clarity Clear Urine pH 6.5 Urine Specific [place] 1.015 Urine Protein >=300 mg/dL (NEG-TRACE) Urine Glucose (UA) Negative mg/dL (NEG) Urine Ketones (Stick) Negative mg/dL (NEG) Urine Blood Trace (NEG) Urine Nitrite Negative (NEG) Urine Bilirubin Negative (NEG) Urine Urobilinogen Dipstick 0.2 mg/dL (0.2 mg/dL) Urine Leukocyte Esterase Moderate (NEG) Urine RBC 3-5 /HPF (0-2) Urine WBC 20-40 /HPF (0-4) Urine Squamous Epithelial Cells Many /LPF Urine Bacteria Few /HPF (0-FEW) Glucose (Fingerstick) 330 mg/dL (70-99) 137 mg/dL (70-99) White Blood Count 7.8 x10^3/uL (4.0-11.0) Red Blood Count 2.87 x10^6/uL (3.50-5.40) Hemoglobin 7.6 g/dL (12.0-15.5) Hematocrit 22.5 % (36.0-47.0) Mean Corpuscular Volume 78 fL (79-100) Mean Corpuscular Hemoglobin 27 pg (25-35) Mean Corpuscular Hemoglobin Concent 34 g/dL (31-37) Red Cell Distribution Width 15.0 % (11.5-14.5) Platelet Count 228 x10^3/uL (140-400) Neutrophils (%) (Auto) 66 % (31-73) Lymphocytes (%) (Auto) 19 % (24-48) Monocytes (%) (Auto) 9 % (0-9) Eosinophils (%) (Auto) 5 % (0-3) Basophils (%) (Auto) 1 % (0-3) Neutrophils # (Auto) 5.1 x10^3uL (1.8-7.7) Lymphocytes # (Auto) 1.5 x10^3/uL (1.0-4.8) Monocytes # (Auto) 0.7 x10^3/uL (0.0-1.1) Eosinophils # (Auto) 0.4 x10^3/uL (0.0-0.7) Basophils # (Auto) 0.1 x10^3/uL (0.0-0.2) Sodium Level 136 mmol/L (136-145) Potassium Level 4.1 mmol/L (3.5-5.1) Chloride Level 101 mmol/L (98-107) Carbon Dioxide Level 24 mmol/L (21-32) Anion Gap 11 (6-14) Blood Urea Nitrogen 74 mg/dL (7-20) Creatinine 3.0 mg/dL (0.6-1.0) Estimated GFR (Cockcroft-Gault) 15.8 Glucose Level 98 mg/dL (70-99) Calcium Level 9.1 mg/dL (8.5-10.1) Test 08/15/18 07:44 08/15/18 11:11 Glucose (Fingerstick) 89 mg/dL (70-99) 162 mg/dL (70-99) Micro Microbiology 08/13/18 Blood Culture - Preliminary, Resulted NO GROWTH AFTER 1 DAY Objective Assessment Fever pattern improving Left big toe gangrene with exposed bone awaiting arteriogram and surgery Left big toe and foot cellulitis improving PAD CAD JACKI worsening creat, DM HTN Rash right hand ? abrasion from scratch,improving Diarrhea c diff neg 08/10 Bilateral pulmonary opacities suggesting atelectasis/infiltrate superimposed upon scarring. Plan Plan of Care Cont Cefepime and flagyl 08/13; was on Zosyn before. BC NGTD empiric doxycycline (08/14) vascular surgery is on hold for now due to jacki Local wound care D/w nursing and Dr Wellington Will need PICC given toe osteo with exposed bone but will need ok from Renal o/ w will need Chest PICC placement per IR Attending Co-Sign Attending Co-Sign The patient was seen and interviewed as well as examined at the bedside. The chart was reviewed. The case was discussed. Agree with the plan of care. SHREE DEL REAL APRN Aug 15, 2018 12:09 GLENN DENNEY MD Aug 15, 2018 15:06
--- NOTE | 2018-08-15 13:43 | PDOC ---
SUBJECTIVE Subjective Pt doing well and requesting to go home. Discussed with ID. Pt will need IV abx for osteo and currently does not have a PICC in place nor home health set up. Will get PICC placed today OBJECTIVE Vital Signs Vital Signs Date Time Temp Pulse Resp B/P (MAP) Pulse Ox O2 Delivery O2 Flow Rate FiO2 08/15/18 11:16 94 Room Air 08/15/18 11:00 98.5 71 14 126/51 (76) 92 Room Air 98.5 08/15/18 08:25 79 142/57 08/15/18 08:24 79 142/57 08/15/18 08:00 Room Air 2.0 08/15/18 07:49 Room Air 08/15/18 07:00 98.7 77 14 148/57 (87) 90 Room Air 98.7 08/15/18 03:00 98.3 79 18 142/57 (85) 91 Room Air 2.0 98.3 08/14/18 23:00 98.2 72 18 138/87 (104) 92 Room Air 2.0 98.2 08/14/18 20:59 77 144/65 08/14/18 20:04 98 Room Air 08/14/18 20:00 Room Air 08/14/18 19:00 98.3 77 18 144/65 (91) 91 Room Air 2.0 98.3 08/14/18 15:15 Room Air 08/14/18 15:00 98.3 86 16 105/54 (71) 90 Room Air 98.3 I & O Intake and Output 08/15/18 07:00 # Voids 7 # Bowel Movements 1 PHYSICAL EXAM Physical Exam General: NAD, AOx3 HEENT: MMM, EOMI, no scleral icterus/injection Heart: RRR, no M/R/G Lungs: CTAB Abd: soft and non tender Ext: left toe unchanged ASSESSMENT/PLAN Assessment/Plan Pt is a 63yo CF admitted for osteomyelitis 1)osteomyelitis of left 1st toe, exposed bone - IV abx, wound care, needs amputation when renal function allows. Will get PICC placement today 2)PAD - arteriogram postponed due to renal function 3)CAD, s/p CABG no CP check echo 4)CKD with JACKI - due to contrast from studies, monitor, off IV hydration, renal following, postponed vascular study 5)Type 2 diabetes- on detention insulin, SSI added, A1C not consistent with good control, reviewed diet choices, continue Lantus at 16 units + SSI 6)Anemia -iron deficient, added oral iron which may also helped loose stools 7)HCAP -Pulm following. Blood cultures with no growth so far. Antibiotics changed by ID, monitor CBC 8)cough - added neb tx, Mucinex DM, Tessalon, IS - encourage activity but no weightbearing on left foot, PT/OT COMMENT Lab Laboratory Tests Test 08/14/18 13:56 08/14/18 16:51 08/14/18 20:59 08/15/18 04:30 Urine Collection Type Unknown Urine Color Yellow Urine Clarity Clear Urine pH 6.5 Urine Specific [place] 1.015 Urine Protein >=300 mg/dL (NEG-TRACE) Urine Glucose (UA) Negative mg/dL (NEG) Urine Ketones (Stick) Negative mg/dL (NEG) Urine Blood Trace (NEG) Urine Nitrite Negative (NEG) Urine Bilirubin Negative (NEG) Urine Urobilinogen Dipstick 0.2 mg/dL (0.2 mg/dL) Urine Leukocyte Esterase Moderate (NEG) Urine RBC 3-5 /HPF (0-2) Urine WBC 20-40 /HPF (0-4) Urine Squamous Epithelial Cells Many /LPF Urine Bacteria Few /HPF (0-FEW) Glucose (Fingerstick) 330 mg/dL (70-99) 137 mg/dL (70-99) White Blood Count 7.8 x10^3/uL (4.0-11.0) Red Blood Count 2.87 x10^6/uL (3.50-5.40) Hemoglobin 7.6 g/dL (12.0-15.5) Hematocrit 22.5 % (36.0-47.0) Mean Corpuscular Volume 78 fL (79-100) Mean Corpuscular Hemoglobin 27 pg (25-35) Mean Corpuscular Hemoglobin Concent 34 g/dL (31-37) Red Cell Distribution Width 15.0 % (11.5-14.5) Platelet Count 228 x10^3/uL (140-400) Neutrophils (%) (Auto) 66 % (31-73) Lymphocytes (%) (Auto) 19 % (24-48) Monocytes (%) (Auto) 9 % (0-9) Eosinophils (%) (Auto) 5 % (0-3) Basophils (%) (Auto) 1 % (0-3) Neutrophils # (Auto) 5.1 x10^3uL (1.8-7.7) Lymphocytes # (Auto) 1.5 x10^3/uL (1.0-4.8) Monocytes # (Auto) 0.7 x10^3/uL (0.0-1.1) Eosinophils # (Auto) 0.4 x10^3/uL (0.0-0.7) Basophils # (Auto) 0.1 x10^3/uL (0.0-0.2) Sodium Level 136 mmol/L (136-145) Potassium Level 4.1 mmol/L (3.5-5.1) Chloride Level 101 mmol/L (98-107) Carbon Dioxide Level 24 mmol/L (21-32) Anion Gap 11 (6-14) Blood Urea Nitrogen 74 mg/dL (7-20) Creatinine 3.0 mg/dL (0.6-1.0) Estimated GFR (Cockcroft-Gault) 15.8 Glucose Level 98 mg/dL (70-99) Calcium Level 9.1 mg/dL (8.5-10.1) Test 08/15/18 07:44 08/15/18 11:11 Glucose (Fingerstick) 89 mg/dL (70-99) 162 mg/dL (70-99) EFRAÍN NOVAK MD Aug 15, 2018 13:43
[2018-08-15 15:00] VITALS: BP 119/55
[2018-08-15] MEDS: IV NORMAL SALINE 1000ML BAG 1,000 ML IV SCH (18:18)
[2018-08-15 19:00] VITALS: BP 109/61
[2018-08-15] MEDS: ATORVASTATIN CALCIUM 40 MG TABLET. PO SCH (21:06)
[2018-08-15] MEDS: INSULIN GLARGINE 300 UNITS/3 ML INSULN.PEN. SQ SCH (21:16)
[2018-08-15 23:00] VITALS: BP 128/50
[2018-08-16 03:40] VITALS: BP 149/53
[2018-08-16 05:53] LABS: CREATININE 2.9 mg/dL (0.6-1.0); GFR 16.4; POTASSIUM 3.6 mmol/L (3.5-5.1)
[2018-08-16] MEDS: IPRATRPIUM/ALBUTEROL 0.5/2.5MG 3 ML NEBU. NEB SCH ×4 (06:03→20:14)
[2018-08-16] MEDS: LEVOTHYROXINE 25 MCG TABLET. PO SCH (06:14)
[2018-08-16] MEDS: LEVOTHYROXINE 100 MCG TABLET PO SCH (06:15)
[2018-08-16 07:00] VITALS: BP 127/50
[2018-08-16] MEDS: INSULIN LISPRO 300 UNITS/3 ML INSULN.PEN. SQ SCH ×3 (08:00→16:55)
--- NOTE | 2018-08-16 08:04 | PDOC ---
SUBJECTIVE Subjective Pt doing well. No acute complaints. Ready to go home but understanding of time it may take OBJECTIVE Vital Signs Vital Signs Date Time Temp Pulse Resp B/P (MAP) Pulse Ox O2 Delivery O2 Flow Rate FiO2 08/16/18 06:01 Room Air 08/16/18 03:40 98.5 76 20 149/53 (85) 93 Room Air 98.5 08/15/18 23:00 98.5 69 20 128/50 (76) 94 Room Air 98.5 08/15/18 21:06 95 109/61 08/15/18 20:04 Room Air 08/15/18 19:00 98.1 95 20 109/61 (77) 91 Room Air 98.1 08/15/18 18:16 Room Air 08/15/18 15:07 Room Air 08/15/18 15:00 98.4 94 14 119/55 (76) 90 Room Air 98.4 08/15/18 11:16 94 Room Air 08/15/18 11:00 98.5 71 14 126/51 (76) 92 Room Air 98.5 08/15/18 08:25 79 142/57 08/15/18 08:24 79 142/57 I & O Intake and Output 08/16/18 06:59 Intake Total 460 ml Balance 460 ml Intake Oral 460 ml # Voids 4 PHYSICAL EXAM Physical Exam General: NAD, AOx3 HEENT: MMM, EOMI, no scleral icterus/injection Heart: RRR, no M/R/G Lungs: CTAB Abd: soft and non tender Ext: left toe unchanged ASSESSMENT/PLAN Assessment/Plan Pt is a 63yo CF admitted for osteomyelitis 1)osteomyelitis of left 1st toe, exposed bone - IV abx, wound care, needs amputation when renal function allows. PICC placement ordered, waiting on clearance from nephrology 2)PAD - arteriogram postponed due to renal function 3)CAD, s/p CABG no CP 4)CKD with JACKI - due to contrast from studies, monitor, renal following 5)Type 2 diabetes- on cable cutter and swager insulin, SSI added, A1C not consistent with good control, reviewed diet choices, continue Lantus at 16 units + SSI 6)Anemia -iron deficient, added oral iron which may also helped loose stools 7)HCAP -Pulm following. Blood cultures with no growth so far. Antibiotics changed by ID, monitor CBC 8)cough - added neb tx, Mucinex DM, Tessalon, IS - encourage activity but no weightbearing on left foot, PT/OT 9)CHF- diastolic, compensated. 10)Moderate pulmonary HTN COMMENT Lab Laboratory Tests Test 08/15/18 11:11 08/15/18 16:42 08/15/18 20:42 08/16/18 04:15 Glucose (Fingerstick) 162 mg/dL (70-99) 226 mg/dL (70-99) 189 mg/dL (70-99) Sodium Level 137 mmol/L (136-145) Potassium Level 3.6 mmol/L (3.5-5.1) Chloride Level 102 mmol/L (98-107) Carbon Dioxide Level 22 mmol/L (21-32) Anion Gap 13 (6-14) Blood Urea Nitrogen 74 mg/dL (7-20) Creatinine 2.9 mg/dL (0.6-1.0) Estimated GFR (Cockcroft-Gault) 16.4 Glucose Level 134 mg/dL (70-99) Calcium Level 9.0 mg/dL (8.5-10.1) Test 08/16/18 07:41 Glucose (Fingerstick) 135 mg/dL (70-99) EFRAÍN NOVAK MD Aug 16, 2018 08:04
--- NOTE | 2018-08-16 08:13 | PDOC ---
PULMONARY PROGRESS NOTES Subjective sob better, has cough, better, no pain Vitals Vital Signs Date Time Temp Pulse Resp B/P (MAP) Pulse Ox O2 Delivery O2 Flow Rate FiO2 08/16/18 06:01 Room Air 08/16/18 03:40 98.5 76 20 149/53 (85) 93 98.5 08/15/18 08:00 2.0 ROS: No Nausea General: Alert, No acute distress HEENT: Other (nc at perrl) Lungs: Clear Cardiovascular: S1, S2 Abdomen: Soft, Non-tender Neuro Exam: Alert Extremities: Other (edema) Skin: Warm Labs Laboratory Tests Test 08/14/18 11:15 08/14/18 13:56 08/14/18 16:51 08/14/18 20:59 Glucose (Fingerstick) 144 mg/dL (70-99) 330 mg/dL (70-99) 137 mg/dL (70-99) Urine Collection Type Unknown Urine Color Yellow Urine Clarity Clear Urine pH 6.5 Urine Specific [place] 1.015 Urine Protein >=300 mg/dL (NEG-TRACE) Urine Glucose (UA) Negative mg/dL (NEG) Urine Ketones (Stick) Negative mg/dL (NEG) Urine Blood Trace (NEG) Urine Nitrite Negative (NEG) Urine Bilirubin Negative (NEG) Urine Urobilinogen Dipstick 0.2 mg/dL (0.2 mg/dL) Urine Leukocyte Esterase Moderate (NEG) Urine RBC 3-5 /HPF (0-2) Urine WBC 20-40 /HPF (0-4) Urine Squamous Epithelial Cells Many /LPF Urine Bacteria Few /HPF (0-FEW) Test 08/15/18 04:30 08/15/18 07:44 08/15/18 11:11 08/15/18 16:42 White Blood Count 7.8 x10^3/uL (4.0-11.0) Red Blood Count 2.87 x10^6/uL (3.50-5.40) Hemoglobin 7.6 g/dL (12.0-15.5) Hematocrit 22.5 % (36.0-47.0) Mean Corpuscular Volume 78 fL (79-100) Mean Corpuscular Hemoglobin 27 pg (25-35) Mean Corpuscular Hemoglobin Concent 34 g/dL (31-37) Red Cell Distribution Width 15.0 % (11.5-14.5) Platelet Count 228 x10^3/uL (140-400) Neutrophils (%) (Auto) 66 % (31-73) Lymphocytes (%) (Auto) 19 % (24-48) Monocytes (%) (Auto) 9 % (0-9) Eosinophils (%) (Auto) 5 % (0-3) Basophils (%) (Auto) 1 % (0-3) Neutrophils # (Auto) 5.1 x10^3uL (1.8-7.7) Lymphocytes # (Auto) 1.5 x10^3/uL (1.0-4.8) Monocytes # (Auto) 0.7 x10^3/uL (0.0-1.1) Eosinophils # (Auto) 0.4 x10^3/uL (0.0-0.7) Basophils # (Auto) 0.1 x10^3/uL (0.0-0.2) Sodium Level 136 mmol/L (136-145) Potassium Level 4.1 mmol/L (3.5-5.1) Chloride Level 101 mmol/L (98-107) Carbon Dioxide Level 24 mmol/L (21-32) Anion Gap 11 (6-14) Blood Urea Nitrogen 74 mg/dL (7-20) Creatinine 3.0 mg/dL (0.6-1.0) Estimated GFR (Cockcroft-Gault) 15.8 Glucose Level 98 mg/dL (70-99) Calcium Level 9.1 mg/dL (8.5-10.1) Glucose (Fingerstick) 89 mg/dL (70-99) 162 mg/dL (70-99) 226 mg/dL (70-99) Test 08/15/18 20:42 08/16/18 04:15 08/16/18 07:41 Glucose (Fingerstick) 189 mg/dL (70-99) 135 mg/dL (70-99) Sodium Level 137 mmol/L (136-145) Potassium Level 3.6 mmol/L (3.5-5.1) Chloride Level 102 mmol/L (98-107) Carbon Dioxide Level 22 mmol/L (21-32) Anion Gap 13 (6-14) Blood Urea Nitrogen 74 mg/dL (7-20) Creatinine 2.9 mg/dL (0.6-1.0) Estimated GFR (Cockcroft-Gault) 16.4 Glucose Level 134 mg/dL (70-99) Calcium Level 9.0 mg/dL (8.5-10.1) Laboratory Tests Test 08/15/18 11:11 08/15/18 16:42 08/15/18 20:42 08/16/18 04:15 Glucose (Fingerstick) 162 mg/dL (70-99) 226 mg/dL (70-99) 189 mg/dL (70-99) Sodium Level 137 mmol/L (136-145) Potassium Level 3.6 mmol/L (3.5-5.1) Chloride Level 102 mmol/L (98-107) Carbon Dioxide Level 22 mmol/L (21-32) Anion Gap 13 (6-14) Blood Urea Nitrogen 74 mg/dL (7-20) Creatinine 2.9 mg/dL (0.6-1.0) Estimated GFR (Cockcroft-Gault) 16.4 Glucose Level 134 mg/dL (70-99) Calcium Level 9.0 mg/dL (8.5-10.1) Test 08/16/18 07:41 Glucose (Fingerstick) 135 mg/dL (70-99) Medications Active Scripts Medications Dose Route/Sig Max Daily Dose Days Date Category Cipro (Ciprofloxacin Hcl) 250 Mg Tablet 250 Mg PO BID 7 08/05/18 Reported Bactrim Ds Tablet (Sulfamethoxazole/Trimethoprim) 1 Each Tablet 1 Each PO BID 08/05/18 Reported Lidocaine 1 Each Adh..patch 1 Each TP DAILY 08/05/18 Reported Levothyroxine Sodium 25 Mcg Tablet 25 Mcg PO DAILYAC 08/05/18 Reported Levothyroxine Sodium 200 Mcg Tablet 200 Mcg PO DAILYAC 08/05/18 Reported Metolazone 5 Mg Tablet 5 Mg PO DAILY 08/05/18 Reported Biotene Oralbalance (Saliva Stimulant Agents Comb.2) 44.3 Ml Liquid 44.3 Ml MM BID 08/05/18 Reported Tresiba Flextouch U-200 (Insulin Degludec) 200 Unit/1 Ml Insuln.pen 20 Unit SQ DAILY 08/05/18 Reported Metoprolol Tartrate 25 Mg Tablet 12.5 Mg PO BID 08/05/18 Reported Lisinopril 40 Mg Tablet 40 Mg PO DAILY 08/05/18 Reported Metformin Hcl 500 Mg Tablet 500 Mg PO DAILYWBKFT 08/05/18 Reported Lyrica (Pregabalin) 150 Mg Capsule 150 Mg PO BID 30 08/05/18 Reported Amlodipine-Benazepril 5-20 Mg (Amlodipine Besylate/Benazepril) 1 Each Capsule 1 Cap PO DAILY 08/05/18 Reported Sodium Bicarbonate 650 Mg Tablet 650 Mg PO TID 12/03/17 Reported Mirapex (Pramipexole Di-Hcl) 0.25 Mg Tablet 1 Tab PO DAILY 05/17/16 Reported Multivitamins (Multivitamin) 1 Each Tablet 1 Tab PO DAILY 05/16/16 Reported Victoza 3-Yaniv (Liraglutide) 0.6 Mg/0.1 Ml Pen.injctr 1.8 Mg SQ DAILY 05/16/16 Reported Carvedilol (Carvedilol) 3.125 Mg Tablet 1 Tab PO BID 05/16/16 Reported Aspir 81 (Aspirin) 81 Mg Tablet.dr 81 Mg PO 12/26/14 Reported Atorvastatin Calcium 40 Mg Tablet 40 Mg PO HS 12/26/[address] 1. Small bilateral pleural effusions with mild to moderate bibasilar atelectasis. 2. Mild patchy groundglass opacities with mild interlobular septal thickening, most likely representing mild pulmonary edema. 4. Mild focal parenchymal consolidation medially in the right upper lobe. 5. Coronary artery disease 6. Mild mediastinal adenopathy. 7. Possible cholelithiasis. 8. Anasarca. Impression . IMPRESSION: 1. Cough with low-grade fever and persistent interstitial infiltrates. Likely suspect interstitial pneumonia. s/p CT chest, no ILD, chf, fever resolved 2. No significant history of tobacco use. 3. 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 Awaiting surgery. 4. Acute kidney injury with worsening creatinine. She has underlying CKD stage 5. Mild cardiomyopathy with an EF of 45% with secondary pulmonary hypertension with a pulmonary artery systolic pressure of 49. Fever pattern improving Plan . RECOMMENDATIONS: 1. continue with antibiotic per Infectious Disease recommendations. cont BD 2. CT chest reviewed, no ILD, chf, keep I<O. 3. Follow renal recommendation. 4. Continue with present nebulizer treatments. 5. Monitor fever closely. 6. Follow Vascular Surgery recommendations. discussed w FARHANA Herrera MD Aug 16, 2018 08:13
[2018-08-16] MEDS: CLOPIDOGREL BISULFATE 75 MG TABLET PO SCH (08:50)
[2018-08-16] MEDS: LACTOBACILLUS RHAMNOSUS GG 1 CAPSULE. PO SCH ×2 (08:50→21:24)
[2018-08-16] MEDS: SODIUM BICARBONATE 650 MG TABLET. PO SCH ×3 (08:50→21:24)
[2018-08-16] MEDS: ASPIRIN ENTERIC COATED 81 MG TABLET.DR. PO SCH (08:50)
[2018-08-16] MEDS: PRAMIPEXOLE 0.25 MG TABLET. PO SCH (08:50)
[2018-08-16] MEDS: metroNIDAZOLE 500 MG TABLET PO SCH ×2 (08:50→21:25)
[2018-08-16] MEDS: BENZONATATE 100 MG CAPSULE. PO SCH ×3 (08:50→21:25)
[2018-08-16] MEDS: DOXYCYCLINE HYCLATE 100 MG TABLET PO SCH ×2 (08:51→21:24)
[2018-08-16] MEDS: MULTIVITAMIN with MINERAL TABLET. PO SCH (08:51)
[2018-08-16] MEDS: METOPROLOL TART IMMED RELEASE 25 MG TABLET. PO SCH ×2 (08:51→21:26)
[2018-08-16] MEDS: guaiFENesin DM 600/30MG 1 TAB TAB.ER.12H PO SCH ×2 (08:51→21:25)
[2018-08-16] MEDS: amLODIPine BESYLATE 10 MG TABLET PO SCH (08:52)
[2018-08-16] MEDS: FERROUS SULFATE 325 MG TABLET. PO SCH (08:52)
[2018-08-16] MEDS: CEFEPIME HCL IV Push 1 GM VIAL. IVP SCH ×2 (08:56→21:32)
[2018-08-16] MEDS: IV NORMAL SALINE 1000ML BAG 1,000 ML IV SCH (08:58)
[2018-08-16] MEDS: PREGABALIN 75 MG CAPSULE PO SCH ×2 (09:00→21:00)
--- NOTE | 2018-08-16 09:04 | PDOC ---
Provider Note Provider Note Vascular f/u Cr 2.9, slowly improving not yet ready for repeat contrast exposure will follow SHERRI HITCHCOCK MD Aug 16, 2018 09:04
[2018-08-16 11:00] VITALS: BP 135/51
--- NOTE | 2018-08-16 14:09 | RAD ---
CHEST AP ONLY Clinical History: PICC LINE PLACEMENT Technique: AP view of the chest was obtained at 08/16/2018 1:35 PM. Comparison: August 14, 2018. Findings: The heart is mildly enlarged. Mediastinal wires again seen. The pulmonary vessels are full and cephalized there is patchy opacities in the lung bases. There has been placement of a right PICC with its tip in the low SVC. Impression: 1. Right PICC well-positioned. 2. Small pleural effusions and mild cardiomegaly with mild CHF. This appears slightly worse. Electronically signed by: Steve Bennett III, MD (08/16/2018 2:06 PM) [id number]
[2018-08-16 15:00] VITALS: BP 150/60
[2018-08-16 19:00] VITALS: BP 154/69
[2018-08-16] MEDS: ATORVASTATIN CALCIUM 40 MG TABLET. PO SCH (21:24)
[2018-08-16] MEDS: ACETAMINOPHEN 325 MG TABLET. PO PRN (21:25)
[2018-08-16] MEDS: INSULIN GLARGINE 300 UNITS/3 ML INSULN.PEN. SQ SCH (21:41)
[2018-08-16 23:00] VITALS: BP 148/66
[2018-08-17 03:00] VITALS: BP 147/71
[2018-08-17] MEDS: IV NORMAL SALINE 1000ML BAG 1,000 ML IV SCH (03:35)
[2018-08-17] MEDS: LEVOTHYROXINE 100 MCG TABLET PO SCH (05:59)
[2018-08-17] MEDS: LEVOTHYROXINE 25 MCG TABLET. PO SCH (05:59)
[2018-08-17] MEDS: ACETAMINOPHEN 325 MG TABLET. PO PRN (06:03)
[2018-08-17 07:00] VITALS: BP 147/57
[2018-08-17] MEDS: IPRATRPIUM/ALBUTEROL 0.5/2.5MG 3 ML NEBU. NEB SCH ×3 (07:45→15:33)
[2018-08-17] MEDS: PRAMIPEXOLE 0.25 MG TABLET. PO SCH (07:59)
[2018-08-17] MEDS: FERROUS SULFATE 325 MG TABLET. PO SCH (07:59)
[2018-08-17] MEDS: DOXYCYCLINE HYCLATE 100 MG TABLET PO SCH (07:59)
[2018-08-17] MEDS: INSULIN LISPRO 300 UNITS/3 ML INSULN.PEN. SQ SCH ×2 (08:00→12:00)
[2018-08-17] MEDS: amLODIPine BESYLATE 10 MG TABLET PO SCH (08:00)
[2018-08-17] MEDS: metroNIDAZOLE 500 MG TABLET PO SCH (08:00)
[2018-08-17] MEDS: METOPROLOL TART IMMED RELEASE 25 MG TABLET. PO SCH (08:00)
[2018-08-17] MEDS: LACTOBACILLUS RHAMNOSUS GG 1 CAPSULE. PO SCH (08:00)
[2018-08-17] MEDS: BENZONATATE 100 MG CAPSULE. PO SCH ×2 (08:00→15:02)
[2018-08-17] MEDS: guaiFENesin DM 600/30MG 1 TAB TAB.ER.12H PO SCH (08:00)
[2018-08-17] MEDS: SODIUM BICARBONATE 650 MG TABLET. PO SCH ×2 (08:00→15:02)
[2018-08-17] MEDS: MULTIVITAMIN with MINERAL TABLET. PO SCH (08:01)
[2018-08-17] MEDS: PREGABALIN 75 MG CAPSULE PO SCH (08:01)
[2018-08-17] MEDS: ASPIRIN ENTERIC COATED 81 MG TABLET.DR. PO SCH (08:01)
[2018-08-17] MEDS: CLOPIDOGREL BISULFATE 75 MG TABLET PO SCH (08:01)
[2018-08-17] MEDS: CEFEPIME HCL IV Push 1 GM VIAL. IVP SCH (09:14)
[2018-08-17 09:55] LABS: CALCIUM 8.7 mg/dL (8.5-10.1); CREATININE 2.6 mg/dL (0.6-1.0); GFR 18.6; POTASSIUM 3.5 mmol/L (3.5-5.1)
[2018-08-17 10:40] VITALS: BP 134/63
--- NOTE | 2018-08-17 11:22 | PDOC ---
Renal-Progress Notes Subjective Notes Notes FEELS SWOLLEN History of Present Illness Hx of present illness STABLE Vitals Vitals Vital Signs Date Time Temp Pulse Resp B/P (MAP) Pulse Ox O2 Delivery O2 Flow Rate FiO2 08/17/18 10:40 98.3 73 18 134/63 (86) 92 Room Air 98.3 08/16/18 08:00 2.0 Weight Weight [ ] I.O. Intake and Output Intake and Output 08/17/18 07:00 Intake Total 240 ml Balance 240 ml Intake Oral 240 ml # Voids 3 Labs Labs Laboratory Tests Test 08/16/18 11:25 08/16/18 16:41 08/16/18 21:30 08/17/18 07:29 Glucose (Fingerstick) 201 mg/dL (70-99) 208 mg/dL (70-99) 170 mg/dL (70-99) 145 mg/dL (70-99) Test 08/17/18 09:25 08/17/18 11:09 Hemoglobin 8.0 g/dL (12.0-15.5) Sodium Level 137 mmol/L (136-145) Potassium Level 3.5 mmol/L (3.5-5.1) Chloride Level 104 mmol/L (98-107) Carbon Dioxide Level 24 mmol/L (21-32) Anion Gap 9 (6-14) Blood Urea Nitrogen 66 mg/dL (7-20) Creatinine 2.6 mg/dL (0.6-1.0) Estimated GFR (Cockcroft-Gault) 18.6 Glucose Level 177 mg/dL (70-99) Calcium Level 8.7 mg/dL (8.5-10.1) Glucose (Fingerstick) 167 mg/dL (70-99) Micro Micro Microbiology 08/13/18 Blood Culture - Preliminary, Resulted NO GROWTH AFTER 3 DAYS Review of Systems Constitutional: yes: weakness, alert, oriented Ears/Nose/Throat: Yes: no symptom reported Eyes: Yes: no symptom reported Cardiovascular: Yes no symptom reported Gastrointestional: Yes: constipation Genitourinary: Yes: no symptom reported Musculoskeletal: Yes: foot pain Skin: Yes no symptom reported Psychiatric/Neurological: Yes: no symptom reported Endocrine: Yes: no symptom reported Physical Exam General Appearance: no apparent distress, oriented Skin: warm, dry Respiratory: bilateral CTA Heart: S1S2, RRR Abdomen: soft, bowel sounds present Genitourinary: bladder flat Extremities: pulses present Neurology: alert, oriented Assessment Assessment IMP EDEMA-WATER RETENTION CKD STAGE 3 WITH CR OF ABOUT 2.0 MILD JACKI DUE TO CAN IMPROVING WITH CR DOWN TO 2.6 FROM 3.1 LEFT TOE OSTEO PAD DM II HTN PLAN RESUME HCTZ HOME MED OK TO D/C FROM RENAL STANDPOINT SHE IS TO COME BACK IN COUPLE WEEKS PER VASCULAR WILL FOLLOW CHUYITA TINAJERO MD Aug 17, 2018 11:22
[2018-08-17] MEDS ORDERED: hydroCHLOROthiazide 25 MG TABLET PO SCH (12:00)
--- NOTE | 2018-08-17 12:04 | PDOC ---
Infectious Disease Note Subjective Subjective No fevers last 24 hours Feeling alright, wants to go home doing well Dressing just chaged and requesting not to have it removed Pain controlled Denies N/V/D/SOA Vital Sign Vital Signs Vital Signs Date Time Temp Pulse Resp B/P (MAP) Pulse Ox O2 Delivery O2 Flow Rate FiO2 08/17/18 11:33 91 Room Air 08/17/18 10:40 98.3 73 18 134/63 (86) 98.3 08/16/18 08:00 2.0 Physical Exam PHYSICAL EXAM GENERAL: Propped up in bed, alert, smiling HEENT: Oral cavity clear NECK: Supple LUNGS: Clear. HEART: S1, S2 regular. ABDOMEN: Soft and nontender EXTREMITIES: LLE/pedal edema. Great toe dressing dry. DP difficult to palpate SKIN: No rash NEUROLOGIC: Alert and oriented x 3 PICC - clean Labs Lab Laboratory Tests Test 08/16/18 16:41 08/16/18 21:30 08/17/18 07:29 08/17/18 09:25 Glucose (Fingerstick) 208 mg/dL (70-99) 170 mg/dL (70-99) 145 mg/dL (70-99) Hemoglobin 8.0 g/dL (12.0-15.5) Sodium Level 137 mmol/L (136-145) Potassium Level 3.5 mmol/L (3.5-5.1) Chloride Level 104 mmol/L (98-107) Carbon Dioxide Level 24 mmol/L (21-32) Anion Gap 9 (6-14) Blood Urea Nitrogen 66 mg/dL (7-20) Creatinine 2.6 mg/dL (0.6-1.0) Estimated GFR (Cockcroft-Gault) 18.6 Glucose Level 177 mg/dL (70-99) Calcium Level 8.7 mg/dL (8.5-10.1) Test 08/17/18 11:09 Glucose (Fingerstick) 167 mg/dL (70-99) Micro Microbiology 08/13/18 Blood Culture - Preliminary, Resulted NO GROWTH AFTER 3 DAYS Objective Assessment Fever pattern improving 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 abrasion from scratch,improving Diarrhea c diff neg 08/10 Bilateral pulmonary opacities suggesting atelectasis/infiltrate superimposed upon scarring. Plan Plan of Care Discont Cefepime/doxy and flagyl 08/13; was on Zosyn before. BC NGTD home on Invanz -d/w pharmacy RX written vascular surgery is on hold for now due to jacki Local wound care D/w nursing and GLENN Danielle MD Aug 17, 2018 12:04
--- NOTE | 2018-08-17 12:17 | PDOC ---
PROGRESS NOTES Subjective Subjective waiting for LE angiogram -- Cr 2.6 starting to trend down Will plan on angiogram when the Cr is back to baseline Objective Objective Vital Signs Date Time Temp Pulse Resp B/P (MAP) Pulse Ox O2 Delivery O2 Flow Rate FiO2 08/17/18 11:33 91 Room Air 08/17/18 10:40 98.3 73 18 134/63 (86) 98.3 08/16/18 08:00 2.0 Intake and Output 08/17/18 07:00 Intake Total 240 ml Balance 240 ml Intake Oral 240 ml # Voids 3 Comment Review of Relevant I have reviewed the following items mimi (where applicable) has been applied. Labs Laboratory Tests Test 08/15/18 16:42 08/15/18 20:42 08/16/18 04:15 08/16/18 07:41 Glucose (Fingerstick) 226 mg/dL (70-99) 189 mg/dL (70-99) 135 mg/dL (70-99) Sodium Level 137 mmol/L (136-145) Potassium Level 3.6 mmol/L (3.5-5.1) Chloride Level 102 mmol/L (98-107) Carbon Dioxide Level 22 mmol/L (21-32) Anion Gap 13 (6-14) Blood Urea Nitrogen 74 mg/dL (7-20) Creatinine 2.9 mg/dL (0.6-1.0) Estimated GFR (Cockcroft-Gault) 16.4 Glucose Level 134 mg/dL (70-99) Calcium Level 9.0 mg/dL (8.5-10.1) Test 08/16/18 11:25 08/16/18 16:41 08/16/18 21:30 08/17/18 07:29 Glucose (Fingerstick) 201 mg/dL (70-99) 208 mg/dL (70-99) 170 mg/dL (70-99) 145 mg/dL (70-99) Test 08/17/18 09:25 08/17/18 11:09 Hemoglobin 8.0 g/dL (12.0-15.5) Sodium Level 137 mmol/L (136-145) Potassium Level 3.5 mmol/L (3.5-5.1) Chloride Level 104 mmol/L (98-107) Carbon Dioxide Level 24 mmol/L (21-32) Anion Gap 9 (6-14) Blood Urea Nitrogen 66 mg/dL (7-20) Creatinine 2.6 mg/dL (0.6-1.0) Estimated GFR (Cockcroft-Gault) 18.6 Glucose Level 177 mg/dL (70-99) Calcium Level 8.7 mg/dL (8.5-10.1) Glucose (Fingerstick) 167 mg/dL (70-99) Laboratory Tests Test 08/16/18 16:41 08/16/18 21:30 08/17/18 07:29 08/17/18 09:25 Glucose (Fingerstick) 208 mg/dL (70-99) 170 mg/dL (70-99) 145 mg/dL (70-99) Hemoglobin 8.0 g/dL (12.0-15.5) Sodium Level 137 mmol/L (136-145) Potassium Level 3.5 mmol/L (3.5-5.1) Chloride Level 104 mmol/L (98-107) Carbon Dioxide Level 24 mmol/L (21-32) Anion Gap 9 (6-14) Blood Urea Nitrogen 66 mg/dL (7-20) Creatinine 2.6 mg/dL (0.6-1.0) Estimated GFR (Cockcroft-Gault) 18.6 Glucose Level 177 mg/dL (70-99) Calcium Level 8.7 mg/dL (8.5-10.1) Test 08/17/18 11:09 Glucose (Fingerstick) 167 mg/dL (70-99) Microbiology 08/13/18 Blood Culture - Preliminary, Resulted NO GROWTH AFTER 4 DAYS Medications Current Medications Aspirin (Ecotrin) 81 mg DAILY PO Last administered on 08/17/18at 08:01; Start 08/05/18 at 15:00 Atorvastatin Calcium (Lipitor) 40 mg HS PO Last administered on 08/16/18at 21:24; Start 08/05/18 at 21:00 Carvedilol (Coreg) 3.125 mg BIDWMEALS PO ; Start 08/05/18 at 17:00; Status UNV Lisinopril (Prinivil) 40 mg DAILY PO ; Start 08/05/18 at 15:00; Stop 08/05/18 at 17:02; Status DC Metoprolol Tartrate (Lopressor) 12.5 mg BID PO Last administered on 08/17/18 08:00; Start 08/05/18 at 21:00 Sodium Bicarbonate (Sodium Bicarbonate) 650 mg TID PO Last administered on 08/17/18 08:00; Start 08/05/18 at 15:00 Non-Formulary Medication (Amlodipine Besylate/ Benazepril (Amlodipine-Benazepril 5-20 Mg)) 1 cap DAILY PO ; Start 08/06/18 at 09:00; Status UNV Insulin Glargine (Lantus) 20 units DAILY SQ ; Start 08/05/18 at 15:00; Stop 08/05/18 at 15:00; Status DC Levothyroxine Sodium (Synthroid) 25 mcg DAILY06 PO Last administered on 08/17/18 05:59; Start 08/05/18 at 15:00 Levothyroxine Sodium (Synthroid) 200 mcg DAILY06 PO Last administered on 08/17/18 05:59; Start 08/05/18 at 15:00 Non-Formulary Medication (Liraglutide (Victoza 3-Yaniv)) 1.8 mg DAILY SQ ; Start 08/06/18 at 09:00; Status UNV Metolazone (Zaroxolyn) 5 mg DAILY PO ; Start 08/05/18 at 15:00; Stop 08/05/18 at 17:02; Status DC Multivitamins (Thera M Plus) 1 tab DAILY PO Last administered on 08/17/18 08:01; Start 08/05/18 at 15:00 Pramipexole Dihydrochloride (miraPEX) 0.25 mg DAILY PO Last administered on 08/17/18at 07:59; Start 08/05/18 at 15:00 Pregabalin (Lyrica) 150 mg BID PO Last administered on 08/13/18at 20:40; Start 08/05/18 at 21:00 Saliva Substitute (Biotene Moisturizing Mouth) 1 spray BID PO Last administered on 08/08/18 20:17; Start 08/05/18 at 21:00; Stop 08/11/18 at 05:43; Status DC Piperacillin Sod/ Tazobactam Sod (Zosyn Per Pharmacy) 1 each PRN DAILY PRN MC SEE COMMENTS; Start 08/05/18 at 13:45; Stop 08/13/18 at 11:00; Status DC Piperacillin Sod/ Tazobactam Sod 3.375 gm/Sodium Chloride 50 ml @ 100 mls/hr Q6HRS IV Last administered on 08/08/18at 12:44; Start 08/05/18 at 14:30; Stop 08/08/18 at 13:10; Status DC Amlodipine Besylate (Norvasc) 5 mg DAILY PO Last administered on 08/11/18at 08:33; Start 08/05/18 at 15:00; Stop 08/11/18 at 08:49; Status DC Insulin Glargine (Lantus) 20 units HS SQ Last administered on 08/09/18at 20:58; Start 08/05/18 at 21:00; Stop 08/10/18 at 17:15; Status DC Sodium Chloride 1,000 ml @ 100 mls/hr Q10H IV Last administered on 08/13/18at 03:55; Start 08/05/18 at 15:00; Stop 08/14/18 at 03:55; Status DC Lisinopril (Prinivil) 40 mg DAILY PO ; Start 08/08/18 at 09:00; Stop 08/08/18 at 09:00; Status DC Metolazone (Zaroxolyn) 5 mg DAILY PO ; Start 08/08/18 at 09:00; Stop 08/08/18 at 09:00; Status DC Acetaminophen (Tylenol) 325 mg PRN Q6HRS PRN PO MILD PAIN / TEMP; Start 08/05/18 at 18:30; Status UNV Acetaminophen (Tylenol) 650 mg PRN Q6HRS PRN PO pain; Start 08/05/18 at 18:30; Status UNV Acetaminophen (Tylenol) 650 mg PRN Q6HRS PRN PO MODERATE PAIN Last administered on 08/16/18at 21:25; Start 08/05/18 at 18:30 Acetaminophen (Tylenol) 325 mg PRN Q6HRS PRN PO MILD PAIN / TEMP Last administered on 08/17/18at 06:03; Start 08/05/18 at 18:30 Fentanyl Citrate (Fentanyl 2ml Vial) 25 mcg PRN Q5MIN PRN IV MILD PAIN; Start 08/07/18 at 07:00; Stop 08/08/18 at 06:59; Status DC Fentanyl Citrate (Fentanyl 2ml Vial) 50 mcg PRN Q5MIN PRN IV MODERATE TO SEVERE PAIN; Start 08/07/18 at 07:00; Stop 08/08/18 at 06:59; Status DC Morphine Sulfate (Morphine Sulfate) 1 mg PRN Q10MIN PRN IV SEVERE PAIN; Start 08/07/18 at 07:00; Stop 08/08/18 at 06:59; Status DC Ringer's Solution 1,000 ml @ 30 mls/hr Q24H IV ; Start 08/07/18 at 07:00; Stop 08/07/18 at 18:59; Status DC Lidocaine HCl (Xylocaine-Mpf 1% 2ml Vial) 2 ml PRN 1X PRN ID PRIOR TO IV START; Start 08/07/18 at 07:00; Stop 08/08/18 at 06:59; Status DC Hydromorphone HCl (Dilaudid) 0.5 mg PRN Q10MIN PRN IV SEV PAIN, Second choice; Start 08/07/18 at 07:00; Stop 08/08/18 at 06:59; Status DC Prochlorperazine Edisylate (Compazine) 5 mg PACU PRN PRN IV NAUSEA, MRX1; S tart 08/07/18 at 07:00; Stop 08/08/18 at 06:59; Status DC Cefazolin Sodium 1 gm/Sodium Chloride 250 ml @ 250 mls/hr 1X ONCE IV ; Start 08/07/18 at 06:00; Stop 08/07/18 at 06:59; Status DC Dextrose (Dextrose 50%-Water Syringe) 25 gm STK-MED ONCE IV ; Start 08/06/18 at 11:29; Stop 08/06/18 at 11:30; Status DC Dextrose (Dextrose 50%-Water Syringe) 25 gm 1X ONCE IV Last administered on 08/06/18at 11:40; Start 08/06/18 at 11:45; Stop 08/06/18 at 11:46; Status DC Iodixanol (Visipaque 320) 100 ml STK-MED ONCE .ROUTE ; Start 08/06/18 at 12:54; Stop 08/06/18 at 12:55; Status DC Lidocaine/Sodium Bicarbonate (Buffered Lidocaine 1%) 3 ml STK-MED ONCE .ROUTE ; Start 08/06/18 at 12:55; Stop 08/06/18 at 12:56; Status DC Heparin Sodium/ Sodium Chloride 1,500 ml @ As Directed STK-MED ONCE .ROUTE ; Start 08/06/18 at 12:55; Stop 08/06/18 at 12:56; Status DC Midazolam HCl (Versed) 2 mg STK-MED ONCE .ROUTE ; Start 08/06/18 at 13:10; Stop 08/06/18 at 13:11; Status DC Fentanyl Citrate (Fentanyl 2ml Vial) 100 mcg STK-MED ONCE .ROUTE ; Start 08/06/18 at 13:10; Stop 08/06/18 at 13:11; Status DC Heparin Sodium (Porcine) (Heparin Sodium) 10,000 unit STK-MED ONCE .ROUTE ; Start 08/06/18 at 13:10; Stop 08/06/18 at 13:11; Status DC Heparin Sodium/ Sodium Chloride (HEPARIN for ARTERIAL LINE FLUSH) 1,000 unit 1X ONCE IART Last administered on 08/06/18at 13:15; Start 08/06/18 at 13:15; Stop 08/06/18 at 13:16; Status DC Lidocaine/Sodium Bicarbonate (Buffered Lidocaine 1%) 3 ml 1X ONCE IJ Last administered on 08/06/18at 13:15; Start 08/06/18 at 13:15; Stop 08/06/18 at 13:16; Status DC Midazolam HCl (Versed) 2 mg 1X ONCE IV Last administered on 08/06/18at 13:15; Start 08/06/18 at 13:15; Stop 08/06/18 at 13:16; Status DC Fentanyl Citrate (Fentanyl 2ml Vial) 100 mcg 1X ONCE IV Last administered on 08/06/18at 13:15; Start 08/06/18 at 13:15; Stop 08/06/18 at 13:16; Status DC Iodixanol (Visipaque 320) 100 ml 1X ONCE IART Last administered on 08/06/18at 13:15; Start 08/06/18 at 13:15; Stop 08/06/18 at 13:16; Status DC Heparin Sodium (Porcine) (Heparin Sodium) 5,000 unit 1X ONCE IV Last administered on 08/06/18at 14:00; Start 08/06/18 at 14:00; Stop 08/06/18 at 14:01; Status DC Hydralazine HCl (Apresoline Inj) 20 mg STK-MED ONCE .ROUTE ; Start 08/06/18 at 14:27; Stop 08/06/18 at 14:28; Status DC Hydralazine HCl (Apresoline Inj) 10 mg 1X ONCE IVP Last administered on 08/06/18at 14:30; Start 08/06/18 at 14:30; Stop 08/06/18 at 14:33; Status DC Insulin Human Lispro (HumaLOG) 0-7 UNITS TIDWMEALS SQ Last administered on 08/16/18at 16:55; Start 08/06/18 at 18:00 Dextrose (Dextrose 50%-Water Syringe) 12.5 gm PRN Q15MIN PRN IV SEE COMMENTS Last administered on 08/10/18at 08:21; Start 08/06/18 at 17:45 Lactobacillus Rhamnosus (Culturelle) 1 cap BID PO Last administered on 08/17/18at 08:00; Start 08/07/18 at 14:00 Piperacillin Sod/ Tazobactam Sod 2.25 gm/Sodium Chloride 50 ml @ 100 mls/hr Q6HRS IV Last administered on 08/13/18at 06:08; Start 08/08/18 at 18:00; Stop 08/13/18 at 10:58; Status DC Insulin Glargine (Lantus) 18 units HS SQ Last administered on 08/16/18at 21:41; Start 08/10/18 at 21:00 Saliva Substitute (Biotene Moisturizing Mouth) 1 spray PRN BID PRN PO DRY MOUTH; Start 08/11/18 at 05:45 Amlodipine Besylate (Norvasc) 10 mg DAILY PO Last administered on 08/17/18at 08:00; Start 08/11/18 at 09:00 Amlodipine Besylate (Norvasc) 5 mg 1X ONCE PO Last administered on 08/11/18at 09:07; Start 08/11/18 at 09:00; Stop 08/11/18 at 09:01; Status DC Ferrous Sulfate (Feosol) 325 mg DAILYWBKFT PO Last administered on 08/17/18at 07:59; Start 08/12/18 at 08:00 Clopidogrel Bisulfate (Plavix) 75 mg DAILYWBKFT PO Last administered on 08/17/18 08:01; Start 08/11/18 at 17:00 Darbepoetin Galileo (Aranesp) 60 mcg 1X ONCE SQ Last administered on 08/11/18 17:47; Start 08/11/18 at 18:30; Stop 08/11/18 at 18:31; Status DC Albuterol/ Ipratropium (Duoneb) 3 ml RTQID NEB Last administered on 08/17/18 11:32; Start 08/12/18 at 16:15 Benzonatate (Tessalon Perle) 100 mg [id number] PO Last administered on 08/17/18 08:00; Start 08/12/18 at 16:15 Guaifenesin (MUCINEX ER with DM) 1 tab BID PO Last administered on 08/17/18 08:00; Start 08/12/18 at 21:00 Cefepime HCl (Maxipime) 1 gm Q12HR IVP Last administered on 08/17/18 09:14; Start 08/13/18 at 21:00; Stop 08/17/18 at 12:06; Status DC Metronidazole (Flagyl) 500 mg Q12HR PO Last administered on 08/17/18 08:00; Start 08/13/18 at 11:00; Stop 08/17/18 at 12:06; Status DC Furosemide (Lasix) 20 mg 1X ONCE IVP Last administered on 08/13/18 12:08; Start 08/13/18 at 11:15; Stop 08/13/18 at 11:16; Status DC Doxycycline Hyclate (Vibra-Tab) 100 mg BID PO Last administered on 08/17/18 07:59; Start 08/14/18 at 21:00; Stop 08/17/18 at 12:06; Status DC Sodium Chloride 1,000 ml @ 60 mls/hr [id number] IV Last administered on 08/16/18 08:58; Start 08/15/18 at 18:15; Stop 08/17/18 at 11:23; Status DC Hydrochlorothiazide (Hydrodiuril) 25 mg DAILY PO ; Start 08/17/18 at 12:00 Ertapenem 0.5 gm/ Sodium Chloride 50 ml @ 100 mls/hr 1X ONCE IV ; Start 08/17/18 at 12:30; Stop 08/17/18 at 12:59 Active Scripts Active Reported Cipro (Ciprofloxacin Hcl) 250 Mg Tablet 250 Mg PO BID 7 Days Bactrim Ds Tablet (Sulfamethoxazole/Trimethoprim) 1 Each Tablet 1 Each PO BID Lidocaine 1 Each Adh..patch 1 Each TP DAILY Levothyroxine Sodium 25 Mcg Tablet 25 Mcg PO DAILYAC Levothyroxine Sodium 200 Mcg Tablet 200 Mcg PO DAILYAC Metolazone 5 Mg Tablet 5 Mg PO DAILY Biotene Oralbalance (Saliva Stimulant Agents Comb.2) 44.3 Ml Liquid 44.3 Ml MM BID Tresiba Flextouch U-200 (Insulin Degludec) 200 Unit/1 Ml Insuln.pen 20 Unit SQ DAILY Metoprolol Tartrate 25 Mg Tablet 12.5 Mg PO BID Lisinopril 40 Mg Tablet 40 Mg PO DAILY Metformin Hcl 500 Mg Tablet 500 Mg PO DAILYWBKFT Lyrica (Pregabalin) 150 Mg Capsule 150 Mg PO BID 30 Days Amlodipine-Benazepril 5-20 Mg (Amlodipine Besylate/Benazepril) 1 Each Capsule 1 Cap PO DAILY Sodium Bicarbonate 650 Mg Tablet 650 Mg PO TID Mirapex (Pramipexole Di-Hcl) 0.25 Mg Tablet 1 Tab PO DAILY Multivitamins (Multivitamin) 1 Each Tablet 1 Tab PO DAILY Victoza 3-Yaniv (Liraglutide) 0.6 Mg/0.1 Ml Pen.injctr 1.8 Mg SQ DAILY Carvedilol (Carvedilol) 3.125 Mg Tablet 1 Tab PO BID Aspir 81 (Aspirin) 81 Mg Tablet. 81 Mg PO Atorvastatin Calcium 40 Mg Tablet 40 Mg PO HS Vitals/I & O Vital Sign - Last 24 Hours 08/16/18 08/16/18 08/16/18 08/16/18 15:00 15:38 19:00 20:00 Temp 98.0 98.2 98.0 98.2 Pulse 77 84 Resp 14 20 B/P (MAP) 150/60 (90) 154/69 (97) Pulse Ox 91 92 O2 Delivery Room Air Room Air Room Air 08/16/18 08/16/18 08/16/18 08/17/18 20:15 21:26 23:00 03:00 Temp 98.0 97.9 98.0 97.9 Pulse 84 72 71 Resp 18 18 B/P (MAP) 154/69 148/66 (93) 147/71 (96) Pulse Ox 93 94 O2 Delivery Room Air 08/17/18 08/17/18 08/17/18 08/17/18 07:00 07:45 08:00 08:00 Temp 98.2 98.2 Pulse 76 76 76 Resp 18 B/P (MAP) 147/57 (87) 147/57 147/57 Pulse Ox 92 93 O2 Delivery Room Air Room Air 08/17/18 08/17/18 10:40 11:33 Temp 98.3 98.3 Pulse 73 Resp 18 B/P (MAP) 134/63 (86) Pulse Ox 92 91 O2 Delivery Room Air Room Air Intake and Output 08/16/18 08/16/18 08/17/18 15:00 23:00 07:00 Intake Total 120 ml 120 ml Balance 120 ml 120 ml HAN GONZALEZ MD Aug 17, 2018 12:17
[2018-08-17] MEDS ORDERED: ERTAPENEM 0.5 GM in IV NORMAL SALINE 50ML 50 ML IV ONE (12:30)
--- NOTE | 2018-08-17 13:02 | NUR ---
Wound care: Wound care follow up for L great toe DFU. Cleansed wound, applied iodoflex and covered with gauze and tape. Recommend to change every other day. No other wounds noted on full skin inspection. Patient possibly discharging today. Wound care will call patient after discharge to follow up with POC as far as appointments/surgery etc. Call light in reach and bed lowered.
--- NOTE | 2018-08-17 13:09 | NUR ---
ANTONIO following pt. SW notified pt will need home IV abx. ANTONIO faxed orders to [facility] to assess home infusion benefits. Discussed with pt at bedside and pt chose [facility] for fpc/PT/OT. Referral faxed to [facility] and Orders for Knee scooter faxed to [facility]. Awaiting to hear regarding benefits for home infusion and status on DME order. REYNA RN and Physician. Will continue to follow.
[2018-08-17 15:00] VITALS: BP 135/58
[2018-08-17] MEDS ORDERED: HYDR-2145 PO (16:12)
[2018-08-17] MEDS ORDERED: CLOP75TA PO (16:12)
[2018-08-17] MEDS ORDERED: FERR325T72 PO (16:12)
[2018-08-17] MEDS ORDERED: LACT1CAP19 PO (16:12)
[2018-08-17] MEDS ORDERED: ERTA1VIA IJ (16:12)
--- NOTE | 2018-08-17 16:18 | SNU/HH DC ---
DISCHARGE WITH HOME HEALTH DISCHARGE INFORMATION: Discharge Date: Aug 17, 2018 Final Diagnosis: osteomyelitis of left 1st toe Condition on Discharge: Stable CODE STATUS: Code Status: Full HOME HEALTH: Face to Face: I certify this patient is under my care and that I, or a nurse practitioner or physician's commercial real estate assistant working with me, had a face to face encounter that meets the physician face to face encounter requirements with this patient on 08/17/18. Medical Complications: CABG, DM, HTN, Pneumonia Long Term For: Assess Cardiopulm Status, Assess & Educate Safety, IV Infusion Therapy, Medication Management, chief knowledge officer For Eval/Treatment: Yes Physical Therapy For: Evalulation/Treatment Occupational Therapy For: Evaluation/Treatment Pt Meets Homebound Status: Poor coordination w/ amb., Unsteady balance w/ amb,, Fatigue w/ amb., Frequent falls w/ injury, Limited distance walking POST DISCHARGE ORDERS: Weight Bearing Status after Di: Non weight bearing (left toe) DIET AFTER DISCHARGE: ADA CHECKS AFTER DISCHARGE: Checks after discharge: Check blood press - daily, Check blood sugar, ac/hs, Check your Temp as needed, Weigh Yourself Daily FOLLOW-UP: PCP to follow Home Health: 1-2 weeks, 2 weeks with vascular TREATMENT/EQUIPMENT ORDERS: Infusion Equipment, home use: PICC Line CERTIFICATION STATEMENT: Certification Statement: Certification Statement: Based on the above finding, I certify that this patient is confined to the home and needs intermittent chcf care, physical therapy and/or speech therapy, or continues to need occupational therapy.~ This patient is under my care, and I have initiated the establishment of the plan of care.~ This patient will be followed by myself or a community physician who will periodically review the plan of care. Home Meds Active Scripts Ertapenem Sodium (INVANZ) 1 Gm Vial, 0.5 GM IJ DAILY for infection for 14 Days, #7 EACH Prov:Nicolás HAMM MD 08/17/18 Ferrous Sulfate (FEOSOL) 325 Mg Tablet, 325 MG PO DAILYWBKFT for anemia for 30 Days, #30 TAB 2 Refills Prov:Nicolás HAMM MD 08/17/18 Clopidogrel Bisulfate (CLOPIDOGREL) 75 Mg Tablet, 75 MG PO DAILYWBKFT for blood thinner for 30 Days, #30 TAB Prov:Nicolás HAMM MD 08/17/18 Lactobacillus Rhamnosus Gg (CULTURELLE) 1 Each Cap.sprink, 1 CAP PO BID for bowels for 30 Days, #60 CAP Prov:Nicolás HAMM MD 08/17/18 Hydrochlorothiazide (HYDROCHLOROTHIAZIDE TABLET ) 25 Mg Tablet, 25 MG PO DAILY for water pill for 30 Days, #30 TAB 5 Refills Prov:Nicolás HAMM MD 08/17/18 Reported Medications Levothyroxine Sodium (LEVOTHYROXINE SODIUM) 25 Mcg Tablet, 25 MCG PO DAILYAC for THYROID SUPPLEMENT, #30 TAB 0 Refills 08/05/18 Levothyroxine Sodium (LEVOTHYROXINE SODIUM) 200 Mcg Tablet, 200 MCG PO DAILYAC for THYROID SUPPLEMENT, #30 TAB 0 Refills 08/05/18 Saliva Stimulant Agents Comb.2 (BIOTENE ORALBALANCE) 44.3 Ml Liquid, 44.3 ML MM BID for dry mouth, LIQUID 08/05/18 Insulin Degludec (Tresiba Flextouch U-200) 200 Unit/1 Ml Insuln.pen, 20 UNIT SQ DAILY for hyperglycemia, EACH 08/05/18 Metoprolol Tartrate (METOPROLOL TARTRATE) 25 Mg Tablet, 12.5 MG PO BID for FOR HYPERTENSION, #60 TAB 0 Refills 08/05/18 Pregabalin (LYRICA) 150 Mg Capsule, 150 MG PO BID for peripheral neuropathy for 30 Days, CAP 08/05/18 Amlodipine Besylate/Benazepril (AMLODIPINE-BENAZEPRIL 5-20 MG) 1 Each Capsule, 1 CAP PO DAILY for hypertension, #90 CAP 3 Refills 08/05/18 Sodium Bicarbonate (SODIUM BICARBONATE) 650 Mg Tablet, 650 MG PO TID for supplement, TAB 12/03/17 Pramipexole Di-Hcl (MIRAPEX) 0.25 Mg Tablet, 1 TAB PO DAILY for dopamine agonist, #90 TAB 1 Refill 05/17/16 Multivitamin (MULTIVITAMINS) 1 Each Tablet, 1 TAB PO DAILY, #30 TAB 5 Refills 05/16/16 Liraglutide (VICTOZA 3-LAUREN) 0.6 Mg/0.1 Ml Pen.injctr, 1.8 MG SQ DAILY, #9 ML 3 Refills 05/16/16 Aspirin (ASPIR 81) 81 Mg Tablet.dr, 81 MG PO, TAB 12/26/14 Atorvastatin Calcium (ATORVASTATIN CALCIUM) 40 Mg Tablet, 40 MG PO HS for high cholesterol, #30 TAB 0 Refills 12/26/14 Discontinued Reported Medications Ciprofloxacin Hcl (CIPRO) 250 Mg Tablet, 250 MG PO BID for antibiotic for 7 Days, #14 TAB 08/05/18 Sulfamethoxazole/Trimethoprim (BACTRIM DS TABLET) 1 Each Tablet, 1 EACH PO BID for antibiotic, TAB 08/05/18 Lidocaine (Lidocaine) 1 Each Adh..patch, 1 EACH TP DAILY for pain, PATCH 08/05/18 Metolazone (METOLAZONE) 5 Mg Tablet, 5 MG PO DAILY for diuretic, #30 TAB 0 Refills 08/05/18 Lisinopril (LISINOPRIL) 40 Mg Tablet, 40 MG PO DAILY for FOR HYPERTENSION, #30 TAB 0 Refills 08/05/18 Metformin Hcl (METFORMIN HCL) 500 Mg Tablet, 500 MG PO DAILYWBKFT for ANTI- DIABETIC, TAB 0 Refills 08/05/18 Carvedilol (CARVEDILOL ) 3.125 Mg Tablet, 1 TAB PO BID, #60 TAB 3 Refills 05/16/16 Nicolás HAMM MD Aug 17, 2018 16:17
--- NOTE | 2018-08-17 16:32 | NUR ---
ANTONIO following pt. Pt has full coverage for home infusion through [facility]. A nurse from [facility] will visit pt tomorrow for bedside teach. All orders faxed to [facility] and [facility]. Spoke with Yayo at [facility] and he stated pt's both insurance does not cover knee scooter and pt will have to buy it form [facility]/other provider. ANTONIO provided pt with Rx for scooter and she is agreeable. Pt aware of all plans and agreeable. REYNA RAMOS.
--- NOTE | 2018-08-17 16:55 | PDOC3 ---
Discharge Summary [facility] Date of Admission: Aug 05, 2018 Discharge Date: Aug 17, 2018 Admitting Diagnosis osteomyelitis of left 1st toe Final Diagnosis acute renal failure, osteomyelitis of left toe, PAD, contrast associated nephropathy, CKD stage 4, diabetic peripheral neuropathy, hypertension, Type 2 diabetes, Hospital acquired pneumonia CONSULTS vascular, renal, ID, pulmonary, wound care Procedures abdominal angiography Brief Hospital Course Ms. Ruelas is a 63 old who presented with: 1)osteomyelitis of left 1st toe, exposed bone - IV abx, wound care, needs amputation when renal function allows. PICC placed, for home antibiotics - Invanz 0.5 gm daily 2)PAD - arteriogram postponed due to renal function 3)CAD, s/p CABG no CP 4)CKD with JACKI - due to contrast from studies, monitored, renal following, creatinine went up to 3.1 with baseline of 2.0 5)Type 2 diabetes- on shelter insulin, SSI added, A1C not consistent with good control, reviewed diet choices, resume Lantus at 20 units at discharge + Victoza, metformin stopped due to renal function, SSI given during hospital stay 6)Anemia -iron deficient, added oral iron which also helped loose stools, continue Aranesp 7)HCAP -Pulm following. Blood cultures with no growth so far. Antibiotics changed by ID, CBC never showed elevated WBC 8)cough - from pneumonia - added neb tx, Mucinex DM, Tessalon, IS - but resolved by discharge 9)CHF- diastolic, compensated. 10)Moderate pulmonary HTN 11) debility - PT/OT eval and tx at discharge per inpt recommendations Patient History: Family history: Cardiomyopathy (situation) G8 BROTHER (SC) G8 BROTHER (heart disease) 33 FATHER 32 MOTHER (SC) Family history: Diabetes mellitus (situation) G8 BROTHER 33 FATHER 32 MOTHER Unknown G8 BROTHER G8 BROTHER (ETOH use, ) G8 BROTHER (brain aneurysm, ) Disposition home with HH CONDITION AT DISCHARGE: Improved, Stable Diet ADA, cardiac, renal Scheduled Amlodipine Besylate/Benazepril (Amlodipine-Benazepril 5-20 Mg), 1 CAP PO DAILY, (Reported) Atorvastatin Calcium (Atorvastatin Calcium), 40 MG PO HS, (Reported) Clopidogrel Bisulfate (Clopidogrel), 75 MG PO DAILYWBKFT Ertapenem Sodium (Invanz), 0.5 GM IJ DAILY Ferrous Sulfate (Feosol), 325 MG PO DAILYWBKFT Hydrochlorothiazide (Hydrochlorothiazide Tablet ), 25 MG PO DAILY Insulin Degludec (Tresiba Flextouch U-200), 20 UNIT SQ DAILY, (Reported) Lactobacillus Rhamnosus Gg (Culturelle), 1 CAP PO BID Levothyroxine Sodium (Levothyroxine Sodium), 200 MCG PO DAILYAC, (Reported) Levothyroxine Sodium (Levothyroxine Sodium), 25 MCG PO DAILYAC, (Reported) Liraglutide (Victoza 3-Yaniv), 1.8 MG SQ DAILY, (Reported) Metoprolol Tartrate (Metoprolol Tartrate), 12.5 MG PO BID, (Reported) Multivitamin (Multivitamins), 1 TAB PO DAILY, (Reported) Pramipexole Di-Hcl (Mirapex), 1 TAB PO DAILY, (Reported) Pregabalin (Lyrica), 150 MG PO BID, (Reported) Saliva Stimulant Agents Comb.2 (Biotene Oralbalance), 44.3 ML MM BID, (Reported) Sodium Bicarbonate (Sodium Bicarbonate), 650 MG PO TID, (Reported) Miscellaneous Medications Aspirin (Aspir 81), 81 MG PO, (Reported) Discontinued Medications Carvedilol (Carvedilol ), 1 TAB PO BID, (Reported) Ciprofloxacin Hcl (Cipro), 250 MG PO BID, (Reported) Lidocaine (Lidocaine), 1 EACH TP DAILY, (Reported) Lisinopril (Lisinopril), 40 MG PO DAILY, (Reported) Metformin Hcl (Metformin Hcl), 500 MG PO DAILYWBKFT, (Reported) Metolazone (Metolazone), 5 MG PO DAILY, (Reported) Sulfamethoxazole/Trimethoprim (Bactrim Ds Tablet), 1 EACH PO BID, (Reported) Follow Up 1wk Nicolás HAMM MD Aug 17, 2018 4:55 pm
--- NOTE | 2018-08-17 19:41 | NUR ---
Discharge Note: Patient was discharged home with home health services for IV therapy infusion. Patient was discharged with right arm double lumen PICC. Patient was given [id number] summary/instructions, follow-ups, new medication were called into preferred pharmacy per Dr. Pino, and given discharge educational material. Patient did not have any further questions or concerns. Patients sister at the bedside at the time of discharge education. Patient was taken down to the main entrance via wheelchair with all personal belongings accompanied by PETERSON Meza, where her sister was waiting for her to take her home.
[2018-09-07] MEDS ORDERED: CALC-31 PO (16:30)
[2018-09-09] MEDS ORDERED: OXYC1TAB15 PO (10:52)
== END 2018-08-17 18:00 | disposition home health service (06) | DRG 628 ==
LOC: 5 NORTH 12:45
PROVIDERS: ADMIT Family Medicine; ATTEND Family Medicine
PROC: 047L3ZZ Dilation of Left Femoral Artery, Percutaneous Approach (ICD-10-PCS; principal; 2018-08-06)
PROC: 047N3ZZ Dilation of Left Popliteal Artery, Percutaneous Approach (ICD-10-PCS; 2018-08-06)
PROC: B4101ZZ Fluoroscopy of Abdominal Aorta using Low Osmolar Contrast (ICD-10-PCS; 2018-08-06)
PROC: 04JY3ZZ Inspection of Lower Artery, Percutaneous Approach (ICD-10-PCS; 2018-08-06)
PROC: B41G1ZZ Fluoroscopy of Left Lower Extremity Arteries using Low Osmolar Contrast (ICD-10-PCS; 2018-08-06)
PROC: 02HV33Z Insertion of Infusion Device into Superior Vena Cava, Percutaneous Approach (ICD-10-PCS; 2018-08-16)
DX: E11.69 Type 2 diabetes mellitus with other specified complication (principal); J18.9 Pneumonia, unspecified organism; E11.52 Type 2 diabetes mellitus with diabetic peripheral angiopathy with gangrene; I13.0 Hypertensive heart and chronic kidney disease with heart failure and stage 1 through stage 4 chronic kidney disease, or unspecified chronic kidney disease; L03.116 Cellulitis of left lower limb; I42.9 Cardiomyopathy, unspecified; I50.32 Chronic diastolic (congestive) heart failure; I96 Gangrene, not elsewhere classified; M86.8X7 Other osteomyelitis, ankle and foot; N17.0 Acute kidney failure with tubular necrosis; N18.4 Chronic kidney disease, stage 4 (severe); I50.9 Heart failure, unspecified; E11.42 Type 2 diabetes mellitus with diabetic polyneuropathy; D64.9 Anemia, unspecified; E03.9 Hypothyroidism, unspecified; E11.22 Type 2 diabetes mellitus with diabetic chronic kidney disease; E11.649 Type 2 diabetes mellitus with hypoglycemia without coma; E61.1 Iron deficiency; I25.10 Atherosclerotic heart disease of native coronary artery without angina pectoris; I27.29 Other secondary pulmonary hypertension; I65.29 Occlusion and stenosis of unspecified carotid artery; I70.202 Unspecified atherosclerosis of native arteries of extremities, left leg; E11.621 Type 2 diabetes mellitus with foot ulcer; L97.529 Non-pressure chronic ulcer of other part of left foot with unspecified severity; Z53.9 Procedure and treatment not carried out, unspecified reason; Z79.4 Long term (current) use of insulin; Z82.49 Family history of ischemic heart disease and other diseases of the circulatory system; Z83.3 Family history of diabetes mellitus; Z87.891 Personal history of nicotine dependence; Z95.1 Presence of aortocoronary bypass graft; Z98.84 Bariatric surgery status; Z81.1 Family history of alcohol abuse and dependence; Z84.1 Family history of disorders of kidney and ureter; Z88.8 Allergy status to other drugs, medicaments and biological substances; Y95 Nosocomial condition; D50.9 Iron deficiency anemia, unspecified
CPT/HCPCS: 36415; 36569; 37224; 71045; 71046; 71250; 73630; 75625; 75710; 76770; 76937; 80048; 80061; 81001; 82607; 82728; 82962; 83036; 83540; 83550; 85018; 85025; 85027; 85045; 85610; 85651; 87040; 87493; 93306; 93880; 93923; 93926; 94640; 94760; 99152; 99153; C1713; C1725; C1760; C1769; C1892; C1894; G0269; J0360; J0692; J0881; J1335; J1644; J1815; J1940; J2250; J2543; J3010; J7030; J7042; J7620; Q9967; 97116

== ENCOUNTER 2018-09-02 06:58 | Outpatient (CLI) | payer MEDICARE, OTHER ==
[~2018-09-02] VITALS: Ht 158.8 cm; Wt 60.8 kg
[2018-09-02] VITALS (11 sets, daily range): BP systolic 107–142; BP diastolic 47–61
[~2018-09-02 06:58] MED LIST changes: +AMLO1CAP10 PO; +CIPR250T30 PO; +CLOP75TA PO; +ERTA1VIA IJ; +FERR325T72 PO; +HYDR-2145 PO; +INSU200I4 SQ; +LACT1CAP19 PO; +LEVO200T5 PO; +LIDO700A39 TP; +METO5TAB4 PO; +PREG150C PO; +SALI44.32 MM; +SULF1TAB24 PO
[2018-09-02] MEDS ORDERED: IODIXANOL 320 MG/ML 100 ML VIAL. ONE (07:41)
[2018-09-02] MEDS ORDERED: LIDOCAINE 1% Multi-Dose 20 ML VIAL. ONE (07:41)
[2018-09-02 07:53] LABS: HEMATOCRIT 30.2 % (36.0-47.0); HEMOGLOBIN 9.9 g/dL (12.0-15.5); RED BLOOD COUNT 3.76 x10^6/uL (3.50-5.40); RED CELL DISTRIBUTION WIDTH 17.1 % (11.5-14.5); WHITE BLOOD COUNT 4.7 x10^3/uL (4.0-11.0)
[2018-09-02 08:03] LABS: PROTHROMBIN TIME PATIENT 14.2 SEC (11.7-14.0)
[2018-09-02 08:07] LABS: CALCIUM 9.3 mg/dL (8.5-10.1); CREATININE 2.1 mg/dL (0.6-1.0); GFR 23.8; POTASSIUM 5.3 mmol/L (3.5-5.1)
--- NOTE | 2018-09-02 08:34 | PDOC ---
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 Objective Objective Vital Signs Date Time Temp Pulse Resp B/P (MAP) Pulse Ox O2 Delivery O2 Flow Rate FiO2 09/02/18 07:20 97.8 58 16 142/61 (88) 96 Room Air 97.8 Comment Review of Relevant I have reviewed the following items mimi (where applicable) has been applied. Labs Laboratory Tests Test 09/02/18 07:35 White Blood Count 4.7 x10^3/uL (4.0-11.0) Red Blood Count 3.76 x10^6/uL (3.50-5.40) Hemoglobin 9.9 g/dL (12.0-15.5) Hematocrit 30.2 % (36.0-47.0) Mean Corpuscular Volume 80 fL (79-100) Mean Corpuscular Hemoglobin 27 pg (25-35) Mean Corpuscular Hemoglobin Concent 33 g/dL (31-37) Red Cell Distribution Width 17.1 % (11.5-14.5) Platelet Count 264 x10^3/uL (140-400) Prothrombin Time 14.2 SEC (11.7-14.0) Prothromb Time International Ratio 1.1 (0.8-1.1) Sodium Level 144 mmol/L (136-145) Potassium Level 5.3 mmol/L (3.5-5.1) Chloride Level 109 mmol/L (98-107) Carbon Dioxide Level 27 mmol/L (21-32) Anion Gap 8 (6-14) Blood Urea Nitrogen 41 mg/dL (7-20) Creatinine 2.1 mg/dL (0.6-1.0) Estimated GFR (Cockcroft-Gault) 23.8 Glucose Level 74 mg/dL (70-99) Calcium Level 9.3 mg/dL (8.5-10.1) Laboratory Tests Test 09/02/18 07:35 White Blood Count 4.7 x10^3/uL (4.0-11.0) Red Blood Count 3.76 x10^6/uL (3.50-5.40) Hemoglobin 9.9 g/dL (12.0-15.5) Hematocrit 30.2 % (36.0-47.0) Mean Corpuscular Volume 80 fL (79-100) Mean Corpuscular Hemoglobin 27 pg (25-35) Mean Corpuscular Hemoglobin Concent 33 g/dL (31-37) Red Cell Distribution Width 17.1 % (11.5-14.5) Platelet Count 264 x10^3/uL (140-400) Prothrombin Time 14.2 SEC (11.7-14.0) Prothromb Time International Ratio 1.1 (0.8-1.1) Sodium Level 144 mmol/L (136-145) Potassium Level 5.3 mmol/L (3.5-5.1) Chloride Level 109 mmol/L (98-107) Carbon Dioxide Level 27 mmol/L (21-32) Anion Gap 8 (6-14) Blood Urea Nitrogen 41 mg/dL (7-20) Creatinine 2.1 mg/dL (0.6-1.0) Estimated GFR (Cockcroft-Gault) 23.8 Glucose Level 74 mg/dL (70-99) Calcium Level 9.3 mg/dL (8.5-10.1) Medications Current Medications Iodixanol (Visipaque 320) 100 ml STK-MED ONCE .ROUTE ; Start 09/02/18 at 07:41; Stop 09/02/18 at 07:42; Status DC Lidocaine HCl (Lidocaine 1% 20ml Vial) 20 ml STK-MED ONCE .ROUTE ; Start 09/02/18 at 07:41; Stop 09/02/18 at 07:42; Status DC Heparin Sodium/ Sodium Chloride 1,000 ml @ As Directed STK-MED ONCE .ROUTE ; Start 09/02/18 at 07:42; Stop 09/02/18 at 07:43; Status DC Active Scripts Active Invanz (Ertapenem Sodium) 1 Gm Vial 0.5 Gm IJ DAILY 14 Days Feosol (Ferrous Sulfate) 325 Mg Tablet 325 Mg PO DAILYWBKFT 30 Days Clopidogrel (Clopidogrel Bisulfate) 75 Mg Tablet 75 Mg PO DAILYWBKFT 30 Days Culturelle (Lactobacillus Rhamnosus Gg) 1 Each Cap.sprink 1 Cap PO BID 30 Days Hydrochlorothiazide Tablet (Hydrochlorothiazide) 25 Mg Tablet 25 Mg PO DAILY 30 Days Reported Levothyroxine Sodium 25 Mcg Tablet 25 Mcg PO DAILYAC Levothyroxine Sodium 200 Mcg Tablet 200 Mcg PO DAILYAC Biotene Oralbalance (Saliva Stimulant Agents Comb.2) 44.3 Ml Liquid 44.3 Ml MM BID Tresiba Flextouch U-200 (Insulin Degludec) 200 Unit/1 Ml Insuln.pen 20 Unit SQ DAILY Metoprolol Tartrate 25 Mg Tablet 12.5 Mg PO BID Lyrica (Pregabalin) 150 Mg Capsule 150 Mg PO BID 30 Days Amlodipine-Benazepril 5-20 Mg (Amlodipine Besylate/Benazepril) 1 Each Capsule 1 Cap PO DAILY Sodium Bicarbonate 650 Mg Tablet 650 Mg PO TID Mirapex (Pramipexole Di-Hcl) 0.25 Mg Tablet 1 Tab PO DAILY Multivitamins (Multivitamin) 1 Each Tablet 1 Tab PO DAILY Victoza 3-Yaniv (Liraglutide) 0.6 Mg/0.1 Ml Pen.injctr 1.8 Mg SQ DAILY Aspir 81 (Aspirin) 81 Mg Tablet.dr 81 Mg PO Atorvastatin Calcium 40 Mg Tablet 40 Mg PO HS Vitals/I & O Vital Sign - Last 24 Hours 09/02/18 07:20 Temp 97.8 97.8 Pulse 58 Resp 16 B/P (MAP) 142/61 (88) Pulse Ox 96 O2 Delivery Room Air HAN GONZALEZ MD September 02, 2018 08:34
[2018-09-02] MEDS ORDERED: fentaNYL PF VIAL 100 MCG/2 ML VIAL ONE ×2 (08:46→10:43)
[2018-09-02] MEDS ORDERED: MIDAZOLAM HCL/PF 2 MG/2 ML VIAL. ONE ×2 (08:46→10:42)
[2018-09-02] MEDS ORDERED: HEPARIN for IV BOLUS 10,000 UNIT/10 ML VIAL. ONE (08:46)
[2018-09-02] MEDS ORDERED: ONDANSETRON PF 4 MG/2 ML VIAL. ONE (10:27)
[2018-09-02] MEDS ORDERED: NITROGLYCERIN 200 MCG/2 ML SYRINGE FOR CATH/VASC LAB. ONE (10:43)
[2018-09-02] MEDS ORDERED: CLOPIDOGREL BISULFATE 75 MG TABLET ONE (11:30)
[2018-09-02] MEDS ORDERED: NITROGLYCERIN 200 MCG/2 ML SYRINGE FOR CATH/VASC LAB. IART ONE (11:45)
[2018-09-02] MEDS ORDERED: LIDOCAINE 1% Multi-Dose 20 ML VIAL. INJ ONE (11:45)
[2018-09-02] MEDS ORDERED: IODIXANOL 320 MG/ML 100 ML VIAL. IART ONE (11:45)
[2018-09-02] MEDS ORDERED: MIDAZOLAM HCL/PF 2 MG/2 ML VIAL. IV ONE (11:45)
[2018-09-02] MEDS ORDERED: IV NORMAL SALINE 500ML BAG 500 ML IV ONE (11:45)
[2018-09-02] MEDS ORDERED: ONDANSETRON PF 4 MG/2 ML VIAL. IV ONE (11:45)
[2018-09-02] MEDS ORDERED: CLOPIDOGREL BISULFATE 75 MG TABLET PO ONE (11:45)
[2018-09-02] MEDS ORDERED: fentaNYL PF VIAL 100 MCG/2 ML VIAL IV ONE (11:45)
[2018-09-02] MEDS ORDERED: HEPARIN for IV BOLUS 10,000 UNIT/10 ML VIAL. IV ONE (12:00)
--- NOTE | 2018-09-02 14:34 | NUR ---
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 Wound cleansed and assessed. redressed with Iodoflex and telfa dressing. Wound is reddened and eschar and slough covered with bone exposure. Wound remains unchanged from previous assessment. Patient to follow up in the wound clinic on the September 09, surgery pending at this time. Patient alert and oriented x4. RN at bedside.
--- NOTE | 2018-09-02 14:57 | NUR ---
Discharge Note: JUSTINA MORALES Discharge instructions and discharge home medications reviewed with Patient and a copy given. All questions have been answered and understanding verbalized. The following instructions and handouts were given: Angioseal, Post sedation, Angiogram, and groin site care. Discontinued lines and drains: No lines to discontinue due to Pt. having a PICC line. Patient discharged to home with sister via car.
--- NOTE | 2018-09-05 13:19 | OP ---
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 PROCEDURES PERFORMED: 1. Ultrasound-guided access in an antegrade fashion of the left common femoral artery. 2. Ultrasound-guided access in a retrograde fashion, left dorsalis pedis artery, left popliteal artery angioplasty. 3. The left anterior tibial artery angioplasty. ANESTHESIA: Conscious sedation under surgeon and RN supervision using fentanyl 125 mcg, Versed 2.5 mg, 120 minutes total. INDICATIONS: The patient is a very nice woman with severe peripheral vascular disease and dry gangrene with exposed bone at the left great toe. She has undergone previous angiography and attempt at intervention for limb salvage by Radiology. I have been asked to give this second attempt with potential pedal access for limb salvage. The procedure to include risks, benefits and alternatives were discussed with the patient preoperatively, signed informed consent was obtained. FINDINGS: 1. Left distal popliteal artery in the P3 segment shows high-grade stenosis, improved with balloon angioplasty. 2. The left anterior tibial artery is completely occluded over a long segment greater than 20 cm. I was unable to cross this antegrade. After retrograde access at the left dorsalis pedis artery, we were able to join the two wires and obtained xfuusjv-upr-dufbcup access from the antegrade left common femoral access to the left dorsalis pedis artery, therefore, allowing intervention and inline flow to the foot. At the end of the procedure, there was inline flow to the foot via a recanalized large anterior tibial artery giving good flow to the dorsalis pedis artery and its medial and lateral plantar branches with good blushing out to the left great toe. DESCRIPTION OF PROCEDURE: The patient was escorted to the medical laboratory technician, placed supine on the table, and the left foot was prepped and draped in the usual sterile fashion. An appropriate timeout was performed. Sedation was induced under surgeon and RN supervision using intravenous fentanyl and Versed. Attention was directed to the left common femoral artery, which was fluoroscopically marked over the femoral head and examined with ultrasound. The vessel was found to be widely patent with good flow. An image of the vessel was taken and saved for the medical record. Under real time ultrasound guidance, local anesthetic was injected in the left groin. Under real time ultrasound guidance, a micropuncture needle was used to access the left common femoral artery in an antegrade fashion. This was used to pass the micropuncture wire into the left SFA under fluoroscopic guidance and exchanged the needle for a micropuncture sheath, which backbled easily. This was used to introduce a long J wire into the superficial femoral artery and exchanged the micropuncture sheath for a 5-Sudanese 10 cm Terumo [place] sheath, which was aspirated and flushed without difficulty. The patient was given intravenous heparin. I advanced a catheter over a J-wire down to the popliteal artery in the P2 segment without any resistance. I then obtained angiography from the knee to the foot. I used this angled Prevoty NaviCross catheter to select the origin of the anterior tibial artery. I attempted to cross this long segment complete occlusion from above. I used a combination of V18 wire and a Command wire and a Quick-Cross catheter as well as the angled NaviCross catheter and was able to cross the large portion of this, but was unable to completely reenter the dorsalis pedis distally. After a couple of attempts, attention was directed to the left foot where ultrasound was used to examine the left dorsalis pedis artery. This vessel was small with circumferential calcification, but had a patent lumen and appeared amenable to small caliber percutaneous access. An image of the vessel was taken and saved for the medical record. Local anesthetic was injected in the foot under ultrasound guidance. Under ultrasound guidance, I was able to access the left dorsalis pedis artery in a retrograde fashion and passed the wire retrograde into the left anterior tibial artery under fluoroscopy. This was used to exchange the needle for a Cook micropuncture 2.6-Sudanese sheath, and this was passed into the left anterior tibial artery and was aspirated and flushed without difficulty. Radial cocktail was given through this, and the patient's heparin was redosed. I was able to then introduce Command wire and then a V-18 wire from below. I was able to cross these two wires with the help of a small catheter from below. I then advanced to the 0.035 NaviCross catheter into the mid anterior tibial artery and attempted to wire this from below with 0.014 Command wire. I was unsuccessful, but I was able to confirm the 2 wires were in the same plane by deflecting each other. I advanced the angle catheter and used this to guide the wire along the path of the wire from below. In doing so and using this as a matthew wire, I was able to pass into the true lumen distally and then passed an 0.018 Command wire onto the foot. I advanced 0.018 Quick-Cross catheter down into the dorsalis pedis artery past the pedal access and confirmed luminal placement with angiography. I was then able to pass a 0.014 wire out into a branch of the dorsalis pedis from antegrade and removed the pedal access wire which had been useful in giving us a matthew wire, it shows the path for the recanalization. I then performed balloon angioplasty of the popliteal artery and the entire anterior tibial artery down to the dorsalis pedis artery using a series of balloons ranging from 2.0 to 2.5 tapered balloon distally to a 3 and then a 3.5 mm balloon for the proximal anterior tibial and distal popliteal artery. I was able to obtain inline flow to the foot, but there was a residual stenosis at the access site in the proximal dorsalis pedis. I treated this with a 2.5 mm angioplasty balloon with long inflation for good hemostasis and then angiography from above showed brisk flow out to the foot. The wire was pulled back, and there was an excellent handheld Doppler signal at the dorsalis pedis with a palpable distal anterior tibial pulse. Please note that prior to body flossing, I did exchange the short 5-Sudanese sheath for a long 5-Sudanese 45 cm Terumo Destination sheath over the J wire. After there was inline flow completed, the 5-Sudanese sheath in the groin was removed over a wire and a 6-Sudanese Angio-Seal device was deployed at the left common femoral access site with excellent hemostasis. The patient was then escorted to recovery room in stable condition, where she was examined and found to have no access site complication and an excellent signal through the foot. She was already on aspirin and Plavix and fluid bolus was given before and after the procedure as well as IV fluids during the procedure to combat her chronic renal insufficiency and contrast exposure. There were no complications. The patient tolerated the procedure well throughout. HAN GONZLAEZ MD DR: MAGDALENA/breezy JOB#: [id number] / [id number]
[2018-09-07] MEDS ORDERED: CALC-31 PO (16:30)
[2018-09-09] MEDS ORDERED: OXYC1TAB15 PO (10:52)
== END 2018-09-02 12:45 | disposition home or self-care (01) ==
LOC: CCL 06:58
PROVIDERS: ATTEND Surgery Vascular Surgery
DX: I70.262 Atherosclerosis of native arteries of extremities with gangrene, left leg (principal); Z79.899 Other long term (current) drug therapy; Z79.82 Long term (current) use of aspirin
CPT/HCPCS: 36415; 37224; 37228; 75710; 76937; 80048; 82962; 85027; 85347; 85610; 99152; 99153; C1760; C1769; C1885; C1892; C1894; J1644; J2250; J2405; J3010; J3490; J7040; Q9967; G0269; C1771

== ENCOUNTER → 2018-09-09 | Day surgery (SDC) | payer MEDICARE, OTHER ==
[~2018-09-09] VITALS: Ht 157.5 cm; Wt 60.8 kg
[~2018-09-09] MED LIST changes: +CALC-31 PO; +EPOETIN ALFA 20,000 UNIT/ML VIAL. SQ ONE; +HYDROmorphone 2 MG/ML VIAL IV PRN; +IV NORMAL SALINE 1000ML BAG 1,000 ML IV SCH; +IV RINGERS,LACTATED 1000ML 1,000 ML IV SCH; +LIDOCAINE 1% PF 30 ML VIAL. ONE; +MORPHINE SULFATE 2 MG/ML VIAL. IV PRN; +ONDANSETRON PF 4 MG/2 ML VIAL. IV PRN; +OXYC1TAB15 PO; +PROCHLORPERAZINE 10 MG/2 ML VIAL. IV PRN; +PROPOFOL 20 ML IV ONE; +SCOPOLAMINE 1.5MG PATCH. TD ONE; +ceFAZolin 2GM PREMIX 2 GM/50 ML BAG IV ONE; +fentaNYL PF VIAL 100 MCG/2 ML VIAL IV PRN
[2018-09-09 08:38] LABS: BASO % 0 % (0-3); EOS # 0.3 x10^3/uL (0.0-0.7); EOS % 7 % (0-3); HEMOGLOBIN 9.7 g/dL (12.0-15.5); LYMPH # 1.2 x10^3/uL (1.0-4.8); LYMPH % 27 % (24-48); MEAN CORPUSCULAR HEMOGLOBIN 26 pg (25-35); MEAN CORPUSCULAR HGB CONC 32 g/dL (31-37); MEAN CORPUSCULAR VOLUME 80 fL (79-100); MONO # 0.5 x10^3/uL (0.0-1.1); MONO % 12 % (0-9); NEUT # 2.4 x10^3uL (1.8-7.7); NEUT % 55 % (31-73); PLATELET COUNT 245 x10^3/uL (140-400); RED BLOOD COUNT 3.77 x10^6/uL (3.50-5.40); RED CELL DISTRIBUTION WIDTH 16.7 % (11.5-14.5); WHITE BLOOD COUNT 4.3 x10^3/uL (4.0-11.0)
[2018-09-09 08:46] LABS: CALCIUM 9.1 mg/dL (8.5-10.1); CREATININE 2.1 mg/dL (0.6-1.0); GFR 23.8; POTASSIUM 4.7 mmol/L (3.5-5.1)
--- NOTE | 2018-09-09 10:47 | DISCH ---
DISCHARGE INSTRUCTIONS Condition on Discharge Condition on Discharge: Stable Activity After Discharge Activity Instructions for Disc: Activity as tolerated Other activity instructions: may ambulate with post op shoe Exercise Instruction after Dis: Progress as tolerated Weight Bearing Status after Di: Non weight bearing Diet after Discharge Additional Diet Restrictions: follow preop diet Diet Texture: Regular Wound Incision Care Other wound/incision instructi: remove dressing Friday, replace with dry gauze, change daily Contacting the DRYaron after DC Call your doctor for: If your condition worsens Follow-Up Follow up with: Dr Griggs 09/25/2018 10:50 CHERY BABB APRN September 09, 2018 10:47
--- NOTE | 2018-09-09 10:51 | PDOC ---
BRIEF OPERATIVE NOTE Date: September 09, 2018 Pre-Op Diagnosis Left first toe gangrene with open ulcer Post-Op Diagnosis same Procedure Performed Left first toe closed amputation Surgeon Dr. Griggs Sewer Pipe Cleaner LIZA Burleson Anesthesia Type: MAC, Local Blood Loss 5cc Specimens Obtained left first toe Findings gangrene toe tip Complications none Operative Note see dictated note CHERY BABB QUALITY CONTROL REPRESENTATIVE September 09, 2018 10:51
--- NOTE | 2018-09-09 11:04 | OP ---
DATE OF SURGERY: 09/09/2018 SURGEON: Myranda Griggs M.D. PMO MANAGER: Sarah Beth Holloway APRN. PREOPERATIVE DIAGNOSIS: Left first toe gangrene. POSTOPERATIVE DIAGNOSIS: Left first toe gangrene. OPERATION PERFORMED: Left first toe closed amputation. ESTIMATED BLOOD LOSS: Minimal. ANESTHESIA: Monitored sedation. INDICATIONS: The patient is a 63-year-old female with a history of peripheral arterial disease in her left lower extremity, who developed an open wound with gangrene on the left distal toe, associated with cellulitis. She was treated in the hospital with antibiotics and an angiogram with revascularization of her tibial vessels by Dr. Cabello. Recommendations were made for a left first toe amputation. Her cellulitis has completely resolved. She has gangrene of the distal left first toe, extending down to the base of her toe nail level, but the skin proximal to this is healthy. I recommended a left proximal first toe amputation, which likely will be closed and I did not feel that we would have to remove the metatarsal head. Informed consent was obtained from the patient including the risks of bleeding, infection, need for further debridements or amputation in the future if this does not heal. DETAILS OF THE OPERATION: The patient was brought to the operating room and placed on the table in supine position. She received monitored sedation throughout the case by Anesthesia. Her left foot was prepped and draped by normal sterile fashion. Lidocaine 1% was used to perform a digital block at the base of the left first toe. We then made an elliptical incision around the sywaimzf-fx-kee area of the toe, below the area of the gangrene, where the skin was healthy. I dissected down to the subcutaneous tissue, tendon and muscle down to the bone and the bone was transected with a bone cutter. The bone was brought back into the wound with a rongeur. I did not have to expose the metatarsal head or remove the metatarsal head. Tendons were removed from the wound. There was no further necrotic tissue and no signs of infection. I irrigated with copious amounts of antibiotic solution. Hemostasis was gained with electrocautery. We then closed the incision with running 4-0 nylon suture and Xeroform was placed over the incision along with 4 x 4 gauze, a Kerlix wrap and an Deni bandage. She tolerated the surgery, with no immediate complications. Sarah Beth Holloway was present throughout the entire length of the case for the amputation and closure of the wound. MYRANDA GRIGGS MD DR: YONY/breezy JOB#: [id number] / [id number]
[2018-09-09 11:05] VITALS: BP 140/60
--- NOTE | 2018-09-11 18:05 | PATHOLOGY ---
[facility] Accession Number: [id number] . 01 Material submitted: . toe - LEFT 1ST TOE. Modifiers: left, first . 02 Diagnosis: Left 1st toe amputation: - Focal ulceration, necrosis, and acute inflammation of the distal tip of toe with focal underlying acute cellulitis, granulation tissue, and reactive fibrosis and chronic inflammation. - Proximal amputation margin negative for acute cellulitis or osteomyelitis. (JPM:filippo; 09/11/2018) MBR/09/11/2018 . 02 Comment: There is focal reactive fibrosis and chronic inflammation with destruction of the distal phalangeal bone, with no evidence of an acute osteomyelitis. (JPM:nipple machine operator; 09/11/2018) . 02 Electronically signed: . Shamar Zamora MD, Pathologist NPI- [id number] . 01 Gross description: . The specimen is received in formalin, labeled "Lilliana Ruelas, left first toe", is a distal portion of a disarticulated digit (PIPJ) measuring 2.4 cm from the proximal skin resection margin to distal tip and up to 2.3 cm in width. Extending above the proximal skin resection margin is a portion of bone measuring 0.3 cm in length by 1.2 x 0.8 cm. The bone margin consists of a concave, lopez-white articular cartilage. The proximal skin, underlying soft tissue and bone appear viable. There is a 1.8 x 1.5 cm lopez-white, firm, mummified, necrotic lesion on the distal tip and distal nail fold and bed. The proximal margins are inked as follow: Skin = blue and bone = black. The digit is longitudinally sectioned to reveal a necrotic cut surface of the lesion that possibly extends to the underlying bone. A longitudinal section from proximal bone margin to distal tip is a submitted in A1 after decalcification. (SWS; 09/09/2018) SHS/SHS . 02 Pathologist provided ICD-10: L97.521 . 02 CPT . 959059, [id number] Specimen Comment: A courtesy copy of this report has been sent to Specimen Comment: [phone], . Specimen Comment: Report sent to / DR HAMM Performed at: 01 [facility] [address] [facility] [address], [place] [id number] MD Tai Jacobson MD Phone: [phone] Performed at: 02 [facility] [address] [place], [place] [id number] MD Shamar Zamora MD Phone: [phone]
== END | disposition home or self-care (01) ==
LOC: SURG 07:50
PROVIDERS: ATTEND Surgery Vascular Surgery
DX: E11.621 Type 2 diabetes mellitus with foot ulcer (principal); L97.521 Non-pressure chronic ulcer of other part of left foot limited to breakdown of skin; I12.9 Hypertensive chronic kidney disease with stage 1 through stage 4 chronic kidney disease, or unspecified chronic kidney disease; E11.22 Type 2 diabetes mellitus with diabetic chronic kidney disease; N18.9 Chronic kidney disease, unspecified; I25.10 Atherosclerotic heart disease of native coronary artery without angina pectoris; Z98.84 Bariatric surgery status; E11.51 Type 2 diabetes mellitus with diabetic peripheral angiopathy without gangrene; Z98.890 Other specified postprocedural states; Z95.1 Presence of aortocoronary bypass graft; Z79.84 Long term (current) use of oral hypoglycemic drugs; Z79.899 Other long term (current) drug therapy
CPT/HCPCS: 28810; 36415; 80048; 85025; 88305; 88311; J0690; J0696; J2704; J7040; A4461

== ENCOUNTER → 2018-09-29 | Outpatient (CLI) | payer MEDICARE, OTHER ==
[2018-09-23 09:35] VITALS: BP 141/66
[~2018-09-29] MED LIST changes: -EPOETIN ALFA 20,000 UNIT/ML VIAL. SQ ONE; -HYDROmorphone 2 MG/ML VIAL IV PRN; -IV NORMAL SALINE 1000ML BAG 1,000 ML IV SCH; -IV RINGERS,LACTATED 1000ML 1,000 ML IV SCH; -LIDOCAINE 1% PF 30 ML VIAL. ONE; -MORPHINE SULFATE 2 MG/ML VIAL. IV PRN; -ONDANSETRON PF 4 MG/2 ML VIAL. IV PRN; -PROCHLORPERAZINE 10 MG/2 ML VIAL. IV PRN; -PROPOFOL 20 ML IV ONE; -SCOPOLAMINE 1.5MG PATCH. TD ONE; -ceFAZolin 2GM PREMIX 2 GM/50 ML BAG IV ONE; -fentaNYL PF VIAL 100 MCG/2 ML VIAL IV PRN
--- NOTE | 2018-09-30 17:55 | KCIC ---
Bilateral digital screening mammograms with 3D Tomosynthesis: Reason for examination: Routine screening. Comparison is made to previous study dated 05/04/2010. Bilateral mammograms in CC and oblique projections were obtained with 2-D imaging and 3-D tomosynthesis imaging on a Siemens Inspiration unit and reviewed on the workstation. Interpretation was made with the benefit of CAD. The skin and nipples show no abnormalities. No abnormal axillary lymph nodes are seen. The breast parenchyma is heterogeneously dense. (Breast density: Category C.) There are new clustered calcifications with associated parenchymal density present in the posterior medial left breast at approximately the 8:00 C position. Recommend further evaluation with coned magnification views. There also appear to be nodular densities in the upper outer quadrant of the right breast at the 10:00 B position and in the upper outer quadrant anteriorly in the left breast at approximately the 1:00 A position. Further evaluation with coned compression views and ultrasound is recommended. There are no other dominant masses, suspicious calcifications or architectural distortion. Impression: New parenchymal density with clustered calcifications at the 8:00 C position of the left breast. Recommend further evaluation with coned magnification views. Parenchymal densities in the 10:00 B position of the right breast and 1:00 a positions of the left breast. Recommend further evaluation with coned magnification views and ultrasound. Your patient's mammogram demonstrates that she has dense breast tissue (breast density category C or D), which could hide abnormalities, and if she has other risk factors for breast cancer that have been identified, she might benefit from supplemental screening tests that may be suggested by you as her ordering physician. Dense breast tissue, in and of itself, is a relatively common condition. Therefore, this information is not provided to cause undue concern, but rather to raise your awareness and to promote discussion with your patient regarding the presence of other risk factors, in addition to dense breast tissue. Your patient's mammography results will be sent to her. BI-RAD Category 0: Incomplete. Needs additional imaging evaluation. "Our facility is accredited by the [employer] Mammography Program." This patient's information has been entered into a reminder system for the patient to be notified with the results of her examination and a target date for the next mammogram. Electronically signed by: Edyta Boykin MD (09/30/2018 5:52 PM) [id number]
== END | disposition home or self-care (01) ==
LOC: KCIC MAMMO 09:10
PROVIDERS: ATTEND Family Medicine
DX: Z12.31 Encounter for screening mammogram for malignant neoplasm of breast (principal)
CPT/HCPCS: 77063; 77067

== ENCOUNTER → 2018-10-07 | Outpatient (CLI) | payer MEDICARE, OTHER ==
[~2018-10-07] MED LIST changes: +LIDO700A21 TP; -LIDO700A39 TP
[2018-10-07 09:21] VITALS: BP 144/64
--- NOTE | 2018-10-07 15:10 | KCIC ---
BILATERAL DIAGNOSTIC MAMMOGRAPHY AND BREAST ULTRASOUND History: Abnormal screening mammogram. Comparison: Bilateral mammogram, 09/29/2018. Technique: Spot compression bilateral CC and MLO and left spot magnification CC and ML digital mammogram views were obtained. Findings: Breast Tissue Density C : The breasts are heterogeneously dense, which may obscure small masses. Nodularity in the upper outer right breast does not resolve with spot compression views. Nodularity in the upper outer left breast anteriorly is less conspicuous. Microcalcifications at the 8:00 position at posterior depth are pleomorphic. Real-time ultrasound imaging of the right and left breast is performed. In the right breast 10:00 position 5 cm from the nipple, there is an ill-defined hypoechoic mass measuring 9 x 5 mm. There is mild posterior acoustic shadowing. Adjacent to the mass at the 10:00 position 4 cm from the nipple there is a second hypoechoic mass measuring 8 x 5 mm. The 2 masses do not appear to be contiguous. No abnormal right axillary lymph node is identified. In the left breast 1:00 position 1 cm from the nipple, there is a 5 mm complicated cyst or fibroadenoma. No suspicious mass or architectural distortion is identified. No abnormal axillary lymph node. IMPRESSION: 1. There are 2 adjacent subcentimeter suspicious masses in the right breast 10:00 position 4-5 cm from the nipple. Recommend ultrasound-guided biopsy of one or both of the masses. 2. There are pleomorphic microcalcifications in the left breast at the 8:00 C position. Recommend stereotactic guided biopsy. Given proximity to chest wall, biopsy may be technically difficult. BI-RADS Category 4: Suspicious. The images were reviewed with computer-aided detection. Findings and recommendations discussed with Dr. Pino at the conclusion of the ultrasound. Patient information is entered into the reminder system with a target due date for the next screening mammogram. Mammography is the most sensitive method for finding small breast cancers, but it does not detect them all and is not a substitute for careful clinical examination. A negative mammogram does not negate a clinically suspicious finding and should not result in delay in biopsying a clinically suspicious abnormality. "Our facility is accredited by the [employer] Mammography Program." Electronically signed by: Jah Dolan MD (10/07/2018 3:07 PM) [facility]
== END | disposition home or self-care (01) ==
LOC: KCIC MAMMO 12:46
PROVIDERS: ATTEND Family Medicine
DX: N64.89 Other specified disorders of breast (principal); N63.11 Unspecified lump in the right breast, upper outer quadrant
CPT/HCPCS: 76641; 77066

== ENCOUNTER → 2018-10-15 | Outpatient (CLI) | payer MEDICARE, OTHER ==
[2018-10-07 09:21] VITALS: BP 144/64
[~2018-10-15] MED LIST changes: -AMLO1CAP10 PO; +AMLO1CAP11 PO; -AMLO1CAP12 PO; +AMLO1CAP13 PO; +LIDOCAINE 2%/EPI 1:100,000 20 ML VIAL. IJ ONE; +LIDOCAINE WITH 8.4% SOD BICARB 3 ML DISP.SYRIN. INJ ONE; +OMEP20TA63 PO
--- NOTE | 2018-10-19 15:06 | PATHOLOGY ---
[facility] Accession Number: [id number] . 01 Material submitted: . PART A: breast - LT BREAST 9:00. Modifiers: left, 9:00 PART B: breast - LT BREAST 9:00. Modifiers: left PART C: breast - LT BREAST 9:00. Modifiers: left, 9:00 . 01 Clinical history: . Left breast calcs . 02 Diagnosis: A. Breast tissue, left breast 9:00 #1 needle biopsies: - Stromal fibrosis and mild duct ectasia, focal. . B. Breast tissue, left breast 9:00 #2 needle biopsies: - Stromal fibrosis and mild duct ectasia. . C. Breast tissue, left breast 9:00 #3 needle biopsies: - Stromal fibrosis and mild duct ectasia. - Recent hemorrhage. (JPM:erick; 10/19/2018) QMS/10/19/2018 . 02 Comment: There are no calcifications identified in the breast biopsies. There is no atypia or evidence of malignancy. (JPM:erick; 10/19/2018) . 02 Electronically signed: . Shamar Zamora MD, Pathologist NPI- [id number] . 01 Gross description: . A. The specimen is received in formalin, labeled "Lilliana Ruelas, Lt breast tissue 9:00 1334A" and consists of an orange cassette containing multiple needle cores of yellow fibroadipose tissue measuring 2.3 x 1.3 x 0.5 cm which are transferred to cassette A1. The specimen was collected at 1:20 PM on 10/15/2018 and placed in formalin at 1:20 PM. The cold ischemic time is less than 1 minute and the total formalin fixation time is greater than 6 hours but less than 72 hours. . B. The specimen is received in formalin, labeled "Lilliana Ruelas Lt breast tissue 9:00 1334B" and consists of an orange cassette containing multiple needle cores of yellow orange fibroadipose tissue measuring 2.0 x 1.4 x 0.5 cm which are transferred to cassette B1. The specimen was obtained at 1:30 PM on 10/15/2018 and placed in formalin at 1:30 PM. The cold ischemic time is less than 1 minute and the total formalin fixation time is greater than 6 hours but less than 72 hours. . C. The specimen is received in formalin, labeled "Lilliana Ruelas Lt breast tissue 9: 1334C" and consists of an orange cassette containing multiple needle cores of hemorrhagic yellow fibroadipose tissue measuring 2.8 x 1.8 x 0.5 cm which are transferred to cassette C1. The specimen was obtained at 1:39 PM on 10/15/2018 and placed in formalin at 1:39 PM. The cold ischemic time is less than 1 minute and the total formalin fixation time is greater than 6 hours but less than 72 hours. (SDY; 10/16/2018) SYU/SYU . 02 Pathologist provided ICD-10: N60.32, N60.42 . 02 CPT . 379555, 701611, 028806 Specimen Comment: A courtesy copy of this report has been sent to Specimen Comment: [phone], , . Specimen Comment: Report sent to ,DR HAMM / DR ANGULO Performed at: 01 [facility] [address], [place], [place] [id number] MD Tai Jacobson MD Phone: [phone] Performed at: 02 [facility] [address], [place] [id number] MD Shamar Zamora MD Phone: [phone]
--- NOTE | 2018-10-21 09:29 | RAD ---
Stereotactic left breast biopsy, 10/15/2018: HISTORY: Suspicious microcalcifications. Previous imaging demonstrated suspicious microcalcifications in the posteromedial aspect of the left breast at approximately 8-9:00 location. Under local anesthesia and aseptic conditions the microcalcifications were targeted utilizing a stereotactic technique. Difficulties were encountered due to the thinness of the patient's compressed breast. We were unable to successfully target the calcifications via a medial approach and therefore attempted a lateral approach. Multiple 9 gauge vacuum-assisted samples were obtained from that approach, however, they did not contain the targeted microcalcifications. A biopsy marker was deposited at the biopsy site. Subsequent postprocedural digital mammography showed that the biopsies had been obtained well lateral from the targeted calcifications due to the accordion affect of this patient's thin breasts. The pathology results are pending. Note: The subsequent pathology report indicated no calcifications, atypia or malignancy within the samples. IMPRESSION: Unsuccessful stereotactic biopsy of the left breast microcalcifications as described above. If clinically indicated, repeat attempt at biopsy could be performed utilizing a horizontal approach in this patient with very thin breasts. A site utilizing a prone biopsy table may be preferable. Excisional biopsy following needle localization would be a reasonable alternative. Note: The findings were called to personnel at Dr. Galicia's office at 9:25 AM on 10/21/2018.
== END ==
LOC: MAMMO 10:10
PROVIDERS: ATTEND Surgery
DX: N60.32 Fibrosclerosis of left breast (principal); N60.42 Mammary duct ectasia of left breast
CPT/HCPCS: 19081; 77065; 88305; C1713; J3490; 19085; 77022

== ENCOUNTER → 2018-10-16 | Outpatient (CLI) | payer MEDICARE, OTHER ==
[2018-10-07 09:21] VITALS: BP 144/64
[~2018-10-16] MED LIST changes: -LIDOCAINE 2%/EPI 1:100,000 20 ML VIAL. IJ ONE; -LIDOCAINE WITH 8.4% SOD BICARB 3 ML DISP.SYRIN. INJ ONE
--- NOTE | 2018-10-20 18:05 | PATHOLOGY ---
[facility] Accession Number: [id number] . 01 Material submitted: . PART A: breast - RIGHT BREAST MASS 10:00, 4 CM FN. Modifiers: right, 10:00, 4 CM FN PART B: breast - RT BREAST MASS 10:00, 5 CM FN. Modifiers: right, 10:00, 5 CM FN . 01 Clinical history: . Right breast mass . 02 Diagnosis: A. Breast tissue, right breast mass 10:00, 4 cm from nipple needle biopsies: - INVASIVE DUCTAL CARCINOMA, HIGH GRADE. SEE COMMENT. . B. Breast tissue, right breast mass 10:00, 5 cm from nipple needle biopsies: - INVASIVE DUCTAL CARCINOMA, HIGH GRADE. SEE COMMENT. (JPM:erick; 10/20/2018) QMS/10/20/2018 . 02 Comment: Sections of the right breast mass 10:00 needle biopsies at 4 cm from nipple and at 5 cm from nipple appear similar and reveal an invasive mammary carcinoma. The tumor shows little to no tubule formation and infiltrates a reactive desmoplastric stroma. The tumor shows marked nuclear pleomorphism. There are mitotic figures present. There are small foci of high grade ductal carcinoma in situ of solid type. There are no tumor associated calcifications. There is no lymphovascular tumor invasion. The invasive carcinoma at 4 cm from nipple measures 5 mm in greatest dimension on the glass slide. The invasive carcinoma at 5 cm from nipple measures 4 mm in greatest dimension on the glass slide. The morphologic findings are supportive of the diagnosis of an invasive high grade ductal carcinoma. Breast prognostic studies will be obtained on block A2, the results of which will be reported separately. The case is also examined by Dr. Banks, who concurs with the diagnosis. (JPM:erick; 10/20/2018) . 02 Electronically signed: . Shamar Zamora MD, Pathologist NPI- [id number] . 01 Gross description: . A. The specimen is received in formalin, labeled "Lilliana Ruelas, right breast 4 cm from nipple". The specimen is additionally labeled on the requisition as, "right breast mass 10:00 4 cm from nipple". Received are multiple needle cores of fibrofatty tissue measuring 1.0 x 0.8 x 0.2 cm in aggregate dimensions. The specimen is submitted entirely in cassettes A1 through A3. The cold ischemic time is 9 minutes. The total formalin fixation time is 68 hours and 20 minutes. . B. The specimen is received in formalin, labeled "Lilliana Ruelas, right breast 5 cm from nipple". The specimen is additionally labeled on the requisition as, "right breast mass 10:00 5 cm from nipple". Received are multiple needle cores of fibrofatty tissue measuring 1.6 x 0.4 x 0.2 cm in aggregate dimensions. The specimen is submitted entirely in cassettes B1 and B2. The cold ischemic time is 6 minutes. The total formalin fixation time is 67 hours and 41 minutes. (CAA; 10/19/2018) QAC/QAC . 02 Pathologist provided ICD-10: C50.911 . 02 CPT . 082280, 997509 Specimen Comment: A courtesy copy of this report has been sent to Specimen Comment: [phone], , . Specimen Comment: Report sent to ,DR RANGEL / DR HAMM Performed at: 01 [facility] [address], [place] [id number] MD Tai Jacobson MD Phone: [phone] Performed at: 02 [facility] [address] [place], [place] [id number] MD Shamar Zamora MD Phone: [phone]
--- NOTE | 2018-10-21 09:30 | RAD ---
Ultrasound-guided right breast biopsy #1, 10/16/2018: HISTORY: Suspicious right breast nodules Previous imaging demonstrated 2 suspicious hypoechoic nodules at the 10:00 location. We first targeted the more posterior nodule located 4 cm from the nipple. Under local anesthesia, aseptic conditions and sonographic guidance four 14-gauge core samples were obtained from this nodule via a lateral approach. The samples were sent to pathology for evaluation. An S shaped biopsy marker was then deposited the biopsy site. The biopsy instrument was removed and hemostasis obtained. Ultrasound-guided right breast biopsy #2, 10/16/2018: We then targeted the second nodule located at the 10:00 location, 5 cm from the nipple. Under local anesthesia, aseptic conditions and sonographic guidance 3 separate 14-gauge core samples were obtained from this nodule via a lateral approach. The samples were sent to pathology for evaluation. A biopsy marker was deposited at the biopsy site. The biopsy instrument was then removed and hemostasis obtained. Two-view postprocedural digital mammograms were then obtained to document the positions of the biopsy markers. The patient tolerated the procedures well and left the department in good condition. Note: The subsequent pathology report indicated the presence of invasive ductal carcinoma at both of these biopsied sites. This is considered to be a concordant finding. Note: The findings were called to personnel at Dr. Galicia's office on 10/21/2018 at 9:26 AM.
== END | disposition home or self-care (01) ==
LOC: US 14:00
PROVIDERS: ATTEND Surgery
DX: C50.911 Malignant neoplasm of unspecified site of right female breast (principal)
CPT/HCPCS: 19083; 19084; 77065; 88305; 88361; C1713; 19081; 76942

== ENCOUNTER → 2020-01-20 | Outpatient (CLI) | payer MEDICARE, OTHER ==
[2019-05-26 09:01] VITALS: BP 137/64
[~2020-01-20] MED LIST changes: -ERTA1VIA IJ; +ERTA1VIA16 IJ; +MULT-445 PO; -MULT1TAB52 PO
--- NOTE | 2020-01-20 16:46 | RAD ---
Three-view left foot study Clinical indications: Nonhealing ulcer of the fifth digit of the left foot FINDINGS: There is soft tissue swelling and irregularity of the fifth digit. There is cortical disruption of the lateral aspect of the fifth middle phalanx consistent with osteomyelitis. No acute fracture or dislocation is seen. Amputation of the first digit is seen involving the distal first proximal phalanx. There is deformity of the distal aspect of the second proximal phalanx which may be due to an old healed fracture. Small bunion is seen. Mild primary degenerative osteoarthritis of the first metatarsal phalangeal joint is seen. Small plantar spur of the calcaneus is evident. IMPRESSION: Osteomyelitis of the fifth middle phalanx. Electronically signed by: Eddie Corona MD (01/20/2020 4:43 PM) [id number]
== END | disposition home or self-care (01) ==
LOC: RAD 12:29
PROVIDERS: ATTEND Emergency Medicine Undersea and Hyperbaric Medicine
DX: M19.072 Primary osteoarthritis, left ankle and foot (principal); L97.529 Non-pressure chronic ulcer of other part of left foot with unspecified severity; M86.172 Other acute osteomyelitis, left ankle and foot; M77.30 Calcaneal spur, unspecified foot; M21.962 Unspecified acquired deformity of left lower leg
CPT/HCPCS: 73630

== ENCOUNTER 2021-02-01 17:17 | Inpatient (IN) | payer MEDICARE, OTHER ==
[~2021-02-01] VITALS: Ht 152.4 cm; Wt 50.4 kg
[~2021-02-01 17:17] MED LIST changes: -BENA20TA4 PO; +BENA20TA84 PO
[2021-02-01] MEDS ORDERED: MORPHINE SULFATE 2 MG/ML INJ. IV/SQ PRN (17:45)
[2021-02-01] MEDS ORDERED: PIPERACILLIN/TAZOBACTAM 4.5 GM in IV NORMAL SALINE 100ML 100 ML IV ONE (17:45)
[2021-02-01] MEDS ORDERED: VANCOMYCIN PER PHARMACY MC ONE (17:45)
[2021-02-01] MEDS ORDERED: VANCOMYCIN 1GM IVPB FOR OMNI 250 ML IV ONE (18:15)
[2021-02-01 18:23] LABS: CREATININE 3.6 mg/dL (0.6-1.0); GFR 12.7; POTASSIUM 3.9 mmol/L (3.5-5.1)
[2021-02-01 18:30] LABS: ALBUMIN 1.4 g/dL (3.4-5.0); ALBUMIN/GLOBULIN RATIO 0.4 (1.0-1.7); BASO % 0 % (0-3); EOS # 0.1 x10^3/uL (0.0-0.7); EOS % 1 % (0-3); HEMATOCRIT 24.2 % (36.0-47.0); HEMOGLOBIN 7.5 g/dL (12.0-15.5); LYMPH # 0.5 x10^3/uL (1.0-4.8); LYMPH % 3 % (24-48); MEAN CORPUSCULAR HEMOGLOBIN 31 pg (25-35); MEAN CORPUSCULAR HGB CONC 31 g/dL (31-37); MEAN CORPUSCULAR VOLUME 99 fL (79-100); MONO # 0.5 x10^3/uL (0.0-1.1); MONO % 3 % (0-9); NEUT # 15.1 x10^3/uL (1.8-7.7); NEUT % 93 % (31-73); PLATELET COUNT 214 x10^3/uL (140-400); RED BLOOD COUNT 2.46 x10^6/uL (3.50-5.40); RED CELL DISTRIBUTION WIDTH 18.4 % (11.5-14.5); TOTAL BILIRUBIN 0.4 mg/dL (0.2-1.0); TOTAL PROTEIN 5.4 g/dL (6.4-8.2); WHITE BLOOD COUNT 16.3 x10^3/uL (4.0-11.0)
[2021-02-01 19:33] LABS: % EOS 1 % (0-5); % LYMPHS 6 % (24-48); % MONOS 2 % (0-10); % SEGS 91 % (35-66); ANISOCYTOSIS SLIGHT; PLT ESTIMATE ADEQUATE (ADEQUATE); POIKILOCYTOSIS SLIGHT; POLYCHROMASIA SLIGHT
[2021-02-01 19:34] LABS: HELMET CELLS OCC; SCHISTOCYTES OCC
[2021-02-01 19:35] LABS: SPHEROCYTES OCC
--- NOTE | 2021-02-01 19:46 | RAD ---
INDICATION: Reason: wounds on foot / Spl. Instructions: / History: COMPARISON: None. FINDINGS: Spectral Doppler, color and grayscale ultrasound images are obtained through the right leg arterial s ystem. There is some limitation secondary to overlying structures obscuring. Multifocal plaque is identified. This includes calcific atherosclerosis. There are monophasic wavefor ms seen throughout the right leg arterial system including common femoral, proximal deep femoral, sup erficial femoral, popliteal as well as the visualized calf arteries. There is also some blunting of t he waveforms. Tardus parvus morphology within the calf vessels. Edema of soft tissues. IMPRESSION: * Monophasic waveforms throughout the right leg arterial system which is most severe within the eloise f. This could be secondary to multifocal plaque with stenosis. Electronically signed by: Liu Mcgill MD (02/01/2021 7:44 PM) [id number]
[2021-02-01] MEDS ORDERED: ONDANSETRON PF 4 MG/2 ML VIAL. IVP PRN (20:30)
--- NOTE | 2021-02-01 21:15 | NUR ---
The patient, JUSTINA MORALES, 65 y/o, F admitted by KAUSHIK OSEI MD, was given written information regarding hospital policies, unit procedures and contact persons. Patient oriented to room, bed, call light, phone and POC. Patient verbalized understanding, call light in reach. See admission assessment/documentation. Valuables were checked and Patient declined lock up of valuables.
--- NOTE | 2021-02-01 22:01 | PHYS DOC ---
Past Medical History Past Medical History: CAD, Diabetes-Type II, Hypertension, Hypothyroid, Renal Disease Additional Past Medical Histor: GOUT, ESRD, RLS, NEUROPATHY, CABG, BARIATRIC SURGERY (SYL ROD BOAT PILOT) Past Surgical History: Coronary Bypass Surgery, Gastric Bypass Additional Past Surgical Histo: back (SYL ROD BOAT PILOT) Smoking Status: Former Smoker Alcohol Use: None Drug Use: None (SYL ROD BOAT PILOT) General Adult EDM: Chief Complaint: WOUND CHECK HPI: HPI: Patient is a 65 year old female with a history of diabetes type 2, hypertension, CAD, CABG, end-stage kidney disease on dialysis Friday last dialyzed today who presents the ED today complaining of infected wounds on the right lower extremity. Patient states she has had the wounds for 1 week. The wounds appear older than 1 week. Denies any fever, nausea vomiting. [employer] shows this patient has had wounds and has been following up with the wound clinic since October. (SYL ROD ) Review of Systems: Review of Systems: Constitutional: Denies fever or chills. [] Eyes: Denies change in visual acuity. [] HENT: Denies nasal congestion or sore throat. [] Respiratory: Denies cough or shortness of breath. [] Cardiovascular: Denies chest pain or edema. [] GI: Denies abdominal pain, nausea, vomiting, bloody stools or diarrhea. [] : Denies dysuria. [] Musculoskeletal: Denies back pain or joint pain. [] Integument: Reports infection to the right foot and lower extremity Neurologic: Denies headache, focal weakness or sensory changes. [] Psychiatric: Denies depression or anxiety. [] (SYL ROD BOAT PILOT) Heart Score: C/O Chest Pain: N/A Risk Factors: Risk Factors: DM, Current or recent (<one month) smoker, HTN, HLP, family history of CAD, obesity. Risk Scores: Score 0 - 3: 2.5% MACE over next 6 weeks - Discharge Home Score 4 - 6: 20.3% MACE over next 6 weeks - Admit for Clinical Observation Score 7 - 10: 72.7% MACE over next 6 weeks - Early Invasive Strategies (SYL ROD BOAT PILOT) Current Medications: Current Medications Medications (Trade) Dose Ordered Sig/Michelle Start Time Stop Time Status Last Admin Dose Admin Morphine Sulfate (Morphine Sulfate) 2 mg PRN Q15MIN PRN 02/01/21 17:45 02/02/21 17:44 Piperacillin Sod/ Tazobactam Sod 4.5 gm/Sodium Chloride 100 ml @ 200 mls/hr 1X ONCE 02/01/21 17:45 02/01/21 18:14 DC 02/01/21 18:10 200 MLS/HR Vancomycin HCl 250 ml @ 250 mls/hr 1X ONCE 02/01/21 18:15 02/01/21 19:14 DC 02/01/21 19:56 250 MLS/HR Vancomycin HCl (Vanco Per Pharmacy) 1 each 1X ONCE 02/01/21 17:45 02/01/21 18:06 DC (SYL ROD BOAT PILOT) Allergies: Allergies: Allergies Coded Allergies Type Severity Reaction Last Updated Verified pregabalin Allergy Intermediate 02/01/21 Yes (SYL ROD BOAT PILOT) Physical Exam: PE: Constitutional: Well developed, well nourished, no acute distress, non-toxic appearance. [] HENT: Normocephalic, atraumatic, bilateral external ears normal, oropharynx moist, no oral exudates, nose normal. [] Eyes: PERRLA, EOMI, conjunctiva normal, no discharge. [] Neck: Normal range of motion, no tenderness, supple, no stridor. [] Cardiovascular:Heart rate regular rhythm, no murmur [] left upper extremity with dialysis fistula, positive bruit and thrill Lungs & Thorax: Bilateral breath sounds clear to auscultation [] Abdomen: Bowel sounds normal, soft, no tenderness, no masses, no pulsatile masses. [] Skin: Right foot lateral aspect with a necrotic area roughly 7 x 5 cm. Right heel with 2 wounds roughly 1 cm each. Right houser with another wound 2 x 1 cm. Right lower calf with another wound 4 x 3 cm. +1 right pedal pulse. Range of motion intact to the right lower extremity. Cap refill less than 2 seconds to right toes. Back: No tenderness, no CVA tenderness. [] Extremities: No tenderness, no cyanosis, no clubbing, ROM intact, no edema. [] Neurologic: Alert and oriented X 3, normal motor function, normal sensory function, no focal deficits noted. [] Psychologic: Flat affect (SYL ROD M BOAT PILOT) Current Patient Data: Labs: Laboratory Tests Test 02/01/21 17:55 02/01/21 20:40 White Blood Count 16.3 x10^3/uL (4.0-11.0) H Red Blood Count 2.46 x10^6/uL (3.50-5.40) L Hemoglobin 7.5 g/dL (12.0-15.5) L Hematocrit 24.2 % (36.0-47.0) L Mean Corpuscular Volume 99 fL (79-100) Mean Corpuscular Hemoglobin 31 pg (25-35) Mean Corpuscular Hemoglobin Concent 31 g/dL (31-37) Red Cell Distribution Width 18.4 % (11.5-14.5) H Platelet Count 214 x10^3/uL (140-400) Neutrophils (%) (Auto) 93 % (31-73) H Lymphocytes (%) (Auto) 3 % (24-48) L Monocytes (%) (Auto) 3 % (0-9) Eosinophils (%) (Auto) 1 % (0-3) Basophils (%) (Auto) 0 % (0-3) Neutrophils # (Auto) 15.1 x10^3/uL (1.8-7.7) H Lymphocytes # (Auto) 0.5 x10^3/uL (1.0-4.8) L Monocytes # (Auto) 0.5 x10^3/uL (0.0-1.1) Eosinophils # (Auto) 0.1 x10^3/uL (0.0-0.7) Basophils # (Auto) 0.0 x10^3/uL (0.0-0.2) Segmented Neutrophils % 91 % (35-66) H Lymphocytes % 6 % (24-48) L Monocytes % 2 % (0-10) Eosinophils % 1 % (0-5) Platelet Estimate Adequate (ADEQUATE) Polychromasia Slight Poikilocytosis Slight Basophilic Stippling Present Anisocytosis Slight Spherocytes Occ Helmet Cells Occ Schistocytes Occ Sodium Level 134 mmol/L (136-145) L Potassium Level 3.9 mmol/L (3.5-5.1) Chloride Level 98 mmol/L (98-107) Carbon Dioxide Level 29 mmol/L (21-32) Anion Gap 7 (6-14) Blood Urea Nitrogen 21 mg/dL (7-20) H Creatinine 3.6 mg/dL (0.6-1.0) H Estimated GFR (Cockcroft-Gault) 12.7 BUN/Creatinine Ratio 6 (6-20) Glucose Level 186 mg/dL (70-99) H Lactic Acid Level 1.6 mmol/L (0.4-2.0) Calcium Level 8.0 mg/dL (8.5-10.1) L Total Bilirubin 0.4 mg/dL (0.2-1.0) Aspartate Amino Transferase (AST) 167 U/L (15-37) H Alanine Aminotransferase (ALT) 246 U/L (14-59) H Alkaline Phosphatase 155 U/L (46-116) H Total Protein 5.4 g/dL (6.4-8.2) L Albumin 1.4 g/dL (3.4-5.0) L Albumin/Globulin Ratio 0.4 (1.0-1.7) L Procalcitonin 0.69 ng/mL (0.00-0.10) H SARS-CoV-2 Antigen (Rapid) Negative (NEGATIVE) Laboratory Tests 02/01/21 17:55 Laboratory Tests 02/01/21 17:55 Vital Signs: Vital Signs Date Time Temp Pulse Resp B/P (MAP) Pulse Ox O2 Delivery O2 Flow Rate FiO2 02/01/21 20:51 60 13 98/53 (68) 97 Room Air 02/01/21 17:31 98.6 98.6 (SYL ROD APRN) EKG: EKG: [] (SYL ROD APRN) Radiology/Procedures: Radiology/Procedures: []PROCEDURE: ARTERIAL STUDY LOWER EXT RIGHT INDICATION: Reason: wounds on foot / Spl. Instructions: / History: COMPARISON: None. FINDINGS: Spectral Doppler, color and grayscale ultrasound images are obtained through the right leg arterial system. There is some limitation secondary to overlying structures obscuring. Multifocal plaque is identified. This includes calcific atherosclerosis. There a re monophasic waveforms seen throughout the right leg arterial system including common femoral, proximal deep femoral, superficial femoral, popliteal as well as the visualized calf arteries. There is also some blunting of the waveforms. Tardus parvus morphology within the calf vessels. Edema of soft tissues. IMPRESSION: * Monophasic waveforms throughout the right leg arterial system which is most severe within the calf. This could be secondary to multifocal plaque with stenosis. Electronically signed by: Jake Giraldo MD (02/01/2021 7:44 PM) [id number] DICTATED and SIGNED BY: JAKE GIRALDO MD DATE: 02/01/21 [id number] (SYL ROD APRN) Course & Med Decision Making: Course & Med Decision Making Pertinent Labs and Imaging studies reviewed. (See chart for details) This a 65-year-old female patient presenting to the ED today with multiple wounds on the right lower extremity, right foot noted for necrotic wound. Patient claims this has been present for 1 week this wounds appear older than 1 week. Vitals on arrival to the ED temperature 98.6, heart rate 67, respirations 16 on room air, O2 sats 99%, blood pressure 104/56. CBC with a WBC of 16.3, lactic is normal, procalcitonin 0.69, right foot x-rays, venous Doppler of the right lower extremity as well as arterial Dopplers are still pending. Spoke with Dr. Engle who accepted patient for admission Spoke to Dr Anson castellon who will follow up with patient tomorrow Routine nephrology consult placed (SYL ROD APRN) Dragon Disclaimer: Neha Disclaimer: This electronic medical record was generated, in whole or in part, using a voice recognition dictation system. (SYL ROD APRN) Departure Departure Impression: Primary Impression: Right foot infection Additional Impressions: Leukocytosis Qualified Codes: D72.829 - Elevated white blood cell count, unspecified End stage kidney disease Disposition: ADMITTED INPATIENT Condition: STABLE Referrals: Nicolás HAMM MD (PCP) Attending Signature Attending Signature I have reviewed the PA/[employer]'s note and plan of care. I was available for consultation as needed during the patient's visit in the emergency department. I agree with the clinical impression, plan, and disposition. (EDER NEWMAN DO) SYL ROD APRN Feb 01, 2021 22:01 EDER NEWMAN DO Feb 02, 2021 00:19
[2021-02-01 23:10] VITALS: BP 104/24
[2021-02-01] MEDS: fentaNYL PF VIAL 100 MCG/2 ML VIAL IVP PRN (23:22)
--- NOTE | 2021-02-01 23:22 | NUR ---
Patient c/o pain 10/10 to right foot, unable to tolerate photos of wounds. Pain medication given. Will try to take pictures when Patient more comfortable.
[2021-02-02] MEDS: fentaNYL PF VIAL 100 MCG/2 ML VIAL IVP PRN ×9 (00:35→23:10)
[2021-02-02 03:00] VITALS: BP 80/33
[2021-02-02] MEDS ORDERED: ACET325T21 PO (03:02)
[2021-02-02] MEDS ORDERED: ALLO100T PO (03:03)
--- NOTE | 2021-02-02 03:04 | RAD ---
Three-view right foot dated 02/01/2021. No comparison available. CLINICAL INDICATION: Pain. Foot wound FINDINGS: 3 views right foot show normal bony alignment. No displaced fracture. Vascular calcinosis. Mild degen erative change of the interphalangeal joints and first MTP joint. No periostitis or bone destruction. Mild soft tissue swelling. IMPRESSION: 1. Mild soft tissue swelling with no plain film evidence of underlying osteomyelitis. If there is per sistent clinical concern, MRI would better evaluate. 2. Mild degenerative changes. Electronically signed by: Peng Pisano MD (02/02/2021 3:01 AM) [facility]
[2021-02-02] MEDS ORDERED: ANAS1TAB47 PO (03:05)
[2021-02-02] MEDS ORDERED: CALC667T4 PO (03:07)
[2021-02-02] MEDS ORDERED: CALC500T31 PO (03:09)
[2021-02-02] MEDS ORDERED: CHOL500021 PO (03:11)
[2021-02-02] MEDS ORDERED: METH-561 PO (03:14)
[2021-02-02] MEDS ORDERED: MIDO2.5T PO (03:16)
[2021-02-02] MEDS ORDERED: POLY17PO29 PO (03:16)
[2021-02-02] MEDS ORDERED: PRAM0.255 PO (03:18)
[2021-02-02] MEDS ORDERED: OXYC5CAP PO (03:19)
[2021-02-02] MEDS ORDERED: PANT40TA77 PO (03:20)
[2021-02-02] MEDS ORDERED: CLOP75TA PO (03:21)
[2021-02-02] MEDS ORDERED: B,C/1TAB PO (03:21)
[2021-02-02] MEDS ORDERED: SENN1TAB99 PO (03:22)
[2021-02-02] MEDS ORDERED: ONDA4TAB7 PO (03:24)
[2021-02-02] MEDS ORDERED: TRAV5DRO EACHEYE (03:25)
[2021-02-02] MEDS ORDERED: INSU100V6 SQ (03:30)
[2021-02-02] MEDS ORDERED: FURO80TA72 PO (03:31)
[2021-02-02 07:00] VITALS: BP 104/38
--- NOTE | 2021-02-02 07:10 | PDOC ---
Provider Note Date of Service: DATE: 02/02/21 TIME: 07:08 Provider Note Vascular Surgery Consult dictated 65 year old female with ESRD on dialysis and PVD has gangrene of the right 5th toe/lateral foot and right heel. She had an angiogram with angioplasty of the right anterior tibial artery at on 01/16/2021, I reviewed images and there is patent flow throughout the leg with single vessel AT runoff to the foot. On exam good doppler DP pulse in the right foot. Plan right 5th toe ray amputation and heel debridement today. Recommend IV antibiotics per ID. Justifications for Admission Other Justification CARMEN WILL MD Feb 02, 2021 07:10
[2021-02-02 07:36] LABS: BASO % 0 % (0-3); EOS # 0.1 x10^3/uL (0.0-0.7); EOS % 1 % (0-3); HEMOGLOBIN 8.3 g/dL (12.0-15.5); LYMPH # 0.7 x10^3/uL (1.0-4.8); LYMPH % 5 % (24-48); MEAN CORPUSCULAR HEMOGLOBIN 31 pg (25-35); MEAN CORPUSCULAR HGB CONC 31 g/dL (31-37); MEAN CORPUSCULAR VOLUME 101 fL (79-100); MONO # 0.6 x10^3/uL (0.0-1.1); MONO % 4 % (0-9); NEUT # 13.2 x10^3/uL (1.8-7.7); NEUT % 90 % (31-73); PLATELET COUNT 218 x10^3/uL (140-400); RED BLOOD COUNT 2.67 x10^6/uL (3.50-5.40); RED CELL DISTRIBUTION WIDTH 18.6 % (11.5-14.5); WHITE BLOOD COUNT 14.7 x10^3/uL (4.0-11.0)
[2021-02-02 07:59] LABS: ALBUMIN 1.6 g/dL (3.4-5.0); ALBUMIN/GLOBULIN RATIO 0.5 (1.0-1.7); CREATININE 4.1 mg/dL (0.6-1.0); GFR 10.9; POTASSIUM 4.7 mmol/L (3.5-5.1); TOTAL BILIRUBIN 0.4 mg/dL (0.2-1.0); TOTAL PROTEIN 5.1 g/dL (6.4-8.2)
[2021-02-02] MEDS: CLOPIDOGREL BISULFATE 75 MG TABLET PO SCH (08:00)
[2021-02-02] MEDS: ASPIRIN ENTERIC COATED 81 MG TABLET.DR. PO SCH (08:00)
[2021-02-02] MEDS ORDERED: DEXTROSE 50% 25 GM / 50ML DISP.SYRIN. IV ONE (08:40)
[2021-02-02] MEDS: DEXTROSE 50% 25 GM / 50ML DISP.SYRIN. IV PRN ×2 (08:45→13:04)
--- NOTE | 2021-02-02 08:59 | NUR ---
i.e. 50% DEXTROSE 25GM. Patient blood glucose 30, repeated at 50, IVP dextrose given per protocol. repeated blood glucose at 184. Dr. Tierney notified at 08:50AM.
--- NOTE | 2021-02-02 09:32 | CONS ---
DATE OF CONSULTATION: 02/02/2021 REFERRING PHYSICIAN: Dr. Griggs. REASON FOR CONSULTATION: Right fifth toe and lateral and heel foot gangrene, antibiotic management. HISTORY OF PRESENT ILLNESS: A 65-year-old female with history of diabetes; hypertension; coronary artery disease; CABG; end-stage renal disease, on dialysis; peripheral vascular disease, who underwent angiogram and angioplasty of the right anterior tibial artery at on 01/16/2021. The patient presented to the ER with complaints of wounds of the right lower extremity for a couple of weeks. She denies any history of injury. Denies fevers, chills, nausea, vomiting, diarrhea, headache, sore throat, difficulty swallowing, shortness of breath, or cough. The patient does have occasional dry heaves which she chronically has after previous gastric bypass surgery.. Denies being on any antibiotics recently. Here in ED, white count was 16.3, lactate of 1.6. LFTs are elevated. SARS-COVID was negative. Foot x-ray showed mild soft tissue swelling with no plain evidence of underlying osteomyelitis. If persistent, MRI would evaluate better. Mild DJD. Ultrasound of the lower extremity showed monophasic waveforms throughout the right leg arterial system which is mostly within the calf. This could be secondary to multifocal plaque with stenosis. The patient received a dose of vancomycin and Zosyn. ID consultation has been requested for antibiotic management. The patient is awaiting surgery later today. PAST MEDICAL HISTORY: Diabetes mellitus; peripheral neuropathy; coronary artery disease; history of CHF; gastric bypass; history of breast cancer; CKD, on hemodialysis; history of left big toe gangrene, status post surgery; history of left knee ACL and MCL repair; carpal tunnel surgery; past smoker; lymphedema, left lower extremity; status post radiation for breast cancer. FAMILY HISTORY: As per HPI. ALLERGIES: PREGABALIN. SOCIAL HISTORY: Quit smoking years ago. Lives with boyfriend. Has a dog. Denies ETOH or illicit drug use. REVIEW OF SYSTEMS: Negative except for above in HPI. CURRENT MEDICATIONS: IV vancomycin and Zosyn, one dose. Currently on aspirin, clopidogrel, fentanyl, Zofran and morphine. PHYSICAL EXAMINATION: VITAL SIGNS: Temperature 98.8, pulse 78, respiratory rate 18, blood pressure 104/38, and oxygen saturation 100% on room air. GENERAL: Alert and oriented x 3 female, lying in bed comfortably, in no acute distress. HEENT: Normocephalic, atraumatic and anicteric. No thrush. Oral mucosa moist. NECK: Supple. LUNGS: Clear bilaterally. No wheezing. HEART: S1, S2. No murmurs. ABDOMEN: Soft, nontender, and nondistended. EXTREMITIES: Right foot lateral necrotic area, right heel wounds, and right houser superficial wounds. Left foot previous amputation site well healed. No edema, no cyanosis. BACK: Reveals normal curvature. No CVA tenderness. NEUROLOGIC: Alert and oriented x 3, grossly nonfocal. PSYCHIATRIC: Calm and cooperative. LABORATORY DATA: WBC 14.7, it was 16.3. Hemoglobin 8.3, hematocrit 27, and platelets 218. Sodium 138, potassium 4.7, chloride 100, bicarb 28, BUN 26, creatinine 4.1, and glucose 68. Lactate 1.6. AST 149, ALT 253, alk phos 163. Total protein 5.1. Procalcitonin 0.69. Albumin 1.6. SARS-COVID rapid negative. Blood culture negative so far. IMAGING: Lower extremity ultrasound as above. Foot x-ray as above. IMPRESSION: 1. Right fifth toe gangrene with right lateral and right heel wounds. 2. Peripheral vascular disease, status post angioplasty at on 01/16/2021. 3. End-stage renal disease, on hemodialysis. 4. Diabetes with neuropathy. 5. Protein-calorie malnutrition. 6. Abnormal LFTs. 7. Anemia. RECOMMENDATIONS: 1. Restart IV vancomycin and Zosyn. 2. The patient is awaiting surgery later today. 3. Wound care as directed. Thank you, Dr. Griggs, for consulting Infectious Disease to participate in this patient's care. If you have any questions, do not hesitate to contact me. NHAN/EDENILSON CANCINO: Marc TID: [id number] ALFONSO
--- NOTE | 2021-02-02 09:40 | PDOC2 ---
CONSULT Date of Consult Date of Consult DATE: 02/02/21 TIME: 09:32 Reason for Consult Reason for Consult: ESRD Source Source: Chart review, Patient History of Present Illness Reason for Visit: Patient is a 65 year old CF with a history of diabetes type 2, hypertension, CAD, CABG, end-stage kidney disease on dialysis TTS last dialyzed yesterday, presents to he ED on 02/01 complaining of infected wounds on the right lower extremity. Reports she had the wounds for 1 week. She has been following with wound clinc at [facility] since October Denies any fever/chills.No nausea vomiting. Denies Abdominl pain, diarrhea. No CP or SOB . She denies any history of injury. She has chronic occasional dry heaves since her previous gastric bypass surgery.. She reports she has been on HD for a year at [facility] under Dr. Rodriguez for a year. She recently switched to PD - did 4 weeks at home but had to switch to HD temporarily due to Volume overload She reports some RRF - states it varies sometimes a trickle and sometimes good UOP. Denies any symptoms of UTI. She is on Lasix at home Currently denies LE edema, No SOB. BS have been low per nursing . BP's also on the lower side Past Medical History Cardiovascular: CAD, HTN Pulmonary: No pertinent hx GI: No pertinent hx Heme/Onc: No pertinent hx Hepatobiliary: No pertinent hx Psych: No pertinent hx Rheumatologic: No pertinent hx Infectious disease: No pertinent hx Renal/: Chronic renal insuff Endocrine: Diabetes, Hypothyroidism Past Surgical History Past Surgical History: CABG, Other Family History Family History: Alcohol Abuse, Heart Disease, Kidney Disease Social History ALCOHOL: none Drugs: None Current Problem List Problem List Problems Medical Problems: (1) End stage kidney disease Status: Acute (2) Leukocytosis Status: Acute (3) Right foot infection Status: Acute Current Medications Current Medications Current Medications Piperacillin Sod/ Tazobactam Sod 4.5 gm/Sodium Chloride 100 ml @ 200 mls/hr 1X ONCE IV Last administered on 02/01/21at 18:10; Start 02/01/21 at 17:45; Stop 02/01/21 at 18:14; Status DC Vancomycin HCl (Vanco Per Pharmacy) 1 each 1X ONCE MC ; Start 02/01/21 at 17:45; Stop 02/01/21 at 18:06; Status DC Morphine Sulfate (Morphine Sulfate) 2 mg PRN Q15MIN PRN IV/SQ PAIN GREATER THAN 3/10; Start 02/01/21 at 17:45; Stop 02/02/21 at 17:44 Vancomycin HCl 250 ml @ 250 mls/hr 1X ONCE IV Last administered on 02/01/21at 19:56; Start 02/01/21 at 18:15; Stop 02/01/21 at 19:14; Status DC Ondansetron HCl (Zofran) 4 mg PRN Q8HRS PRN IVP NAUSEA/VOMITING; Start 02/01/21 at 20:30; Stop 02/02/21 at 20:29 Fentanyl Citrate (Fentanyl 2ml Vial) 50 mcg PRN Q1HR PRN IVP PAIN Last administered on 02/02/21at 08:37; Start 02/01/21 at 20:30; Stop 02/02/21 at 20:29 Clopidogrel Bisulfate (Plavix) 75 mg DAILYWBKFT PO ; Start 02/02/21 at 08:00 Aspirin (Ecotrin) 81 mg DAILYWBKFT PO ; Start 02/02/21 at 08:00 Piperacillin Sod/ Tazobactam Sod 2.25 gm/Sodium Chloride 50 ml @ 100 mls/hr Q8HRS IV ; Start 02/02/21 at 09:00 Vancomycin HCl (Vanco Per Pharmacy) 1 each PRN DAILY PRN MC SEE COMMENTS; Start 02/02/21 at 08:30 Dextrose (Dextrose 50%-Water Syringe) 25 gm STK-MED ONCE IV ; Start 02/02/21 at 08:40; Stop 02/02/21 at 08:40; Status DC Dextrose (Dextrose 50%-Water Syringe) 12.5 gm PRN Q15MIN PRN IV SEE COMMENTS Last administered on 02/02/21at 08:45; Start 02/02/21 at 09:00 Active Scripts Active Feosol (Ferrous Sulfate) 325 Mg Tablet 325 Mg PO DAILYWBKFT 30 Days Reported Lasix (Furosemide) 80 Mg Tablet 1 Tab PO DAILY 30 Days Humalog (Insulin Lispro) 100 Unit/1 Ml Vial 100 Unit SQ TIDAC Travatan Z (Travoprost) 5 Ml Drops 1 Drop EACHEYE DAILY Zofran (Ondansetron Hcl) 4 Mg Tablet 1 Tab PO Q6HRS Senna-Docusate Sodium Tablet (Sennosides/Docusate Sodium) 1 Each Tablet 1 Tab PO DAILY 20 Days Renaplex-D Tablet (B,C/Folic/Zinc/Selenometh/D3/E) 1 Each Tablet 1 Each PO DAILY Clopidogrel (Clopidogrel Bisulfate) 75 Mg Tablet 1 Tab PO DAILY Protonix (Pantoprazole Sodium) 40 Mg Tablet.dr 40 Mg PO DAILYAC Oxycodone Hcl 5 Mg Capsule 5 Mg PO PRN Q6HRS PRN Mirapex (Pramipexole Di-Hcl) 0.25 Mg Tablet 0.5 Mg PO DAILY Miralax (Polyethylene Glycol 3350) 17 Gm Powd.pack 1 Packet PO DAILY PRN 2 Days dissolve in water Midodrine Hcl 2.5 Mg Tablet 2.5 Mg PO TID Methocarbamol 500 Mg Tablet 500 Mg PO PRN Q8HRS D3-50 (Cholecalciferol (Vitamin D3)) 50,000 Unit Capsule 1,000 Unit PO DAILY Calcium Carbonate 500 Mg Tablet 750 Mg PO BID Calcium Acetate 667 Mg Tablet 2 Tab PO DAILY 30 Days Arimidex (Anastrozole) 1 Mg Tablet 1 Tab PO DAILY 30 Days Allopurinol 100 Mg Tablet 1 Tab PO DAILY Acetaminophen 325 Mg Tablet 2 Tab PO PRN Q6HRS PRN 30 Days Prilosec Otc (Omeprazole Magnesium) 20 Mg Tablet. 1 Tab PO DAILY Calcium 500 + D Tablet (Calcium Carbonate/Vitamin D3) 1 Each Tablet 1 Each PO DAILY Levothyroxine Sodium 200 Mcg Tablet 200 Mcg PO DAILYAC Tresiba Flextouch U-200 (Insulin Degludec) 200 Unit/1 Ml Insuln.pen 10 Unit SQ HS Lyrica (Pregabalin) 150 Mg Capsule 150 Mg PO Q3DAYS 30 Days Amlodipine-Benazepril 5-20 Mg (Amlodipine Besylate/Benazepril) 1 Each Capsule 1 Cap PO DAILY Sodium Bicarbonate 650 Mg Tablet 650 Mg PO TID Mirapex (Pramipexole Di-Hcl) 0.25 Mg Tablet 1 Tab PO DAILY Aspir 81 (Aspirin) 81 Mg Tablet. 81 Mg PO Atorvastatin Calcium 40 Mg Tablet 80 Mg PO HS Allergies Allergies: Coded Allergies: pregabalin (Verified Allergy, Intermediate, 02/01/21) ROS Review of System As per HPI, rest of the ROS is negative Physical Exam Physical Exam GENERAL: no acute distress. HEENT: Normocephalic, atraumatic, anicteric. Oral mucosa moist. NECK: Supple. LUNGS: Clear bilaterally. Non labored HEART: S1, S2. No murmurs. ABDOMEN: Soft, nontender, and nondistended, BS +. Has PD catheter EXTREMITIES: Right foot lateral necrotic area, right heel wounds, and right houser superficial wounds. Left foot amputation No edema, no cyanosis. : No Menjivar , No CVA tenderness or SP tenderness NEUROLOGIC: Alert and oriented x 3, grossly nonfocal. PSYCHIATRIC: Calm and cooperative. DERM No rash Vital Signs Vital Signs Date Time Temp Pulse Resp B/P (MAP) Pulse Ox O2 Delivery O2 Flow Rate FiO2 02/02/21 07:00 98.8 78 18 104/38 (60) 100 Room Air 98.8 Assessment & Plan [facility] completed treatment yesterday. Currently no indication today , HD tomorrow per her schedule Access AVF ; she recently started PD as well but had to switch to HD 2/2 Fluid retention .Avoid PICC /Mid line Anemia - ANNIA as ordered Gangrene right 5th toe/lateral foot and right heel - had an angiogram with angioplasty of the right anterior tibial artery at on 01/16/2021, per vascular plan for right 5th toe ray amputation and heel debridement today HTN - on antihypertensives at home , currently BP's low . Hold BP meds DM Currently Hypoglycemic defer to primary Labs Labs Laboratory Tests Test 02/01/21 17:55 02/01/21 20:40 02/02/21 06:55 02/02/21 08:21 White Blood Count 16.3 x10^3/uL (4.0-11.0) 14.7 x10^3/uL (4.0-11.0) Red Blood Count 2.46 x10^6/uL (3.50-5.40) 2.67 x10^6/uL (3.50-5.40) Hemoglobin 7.5 g/dL (12.0-15.5) 8.3 g/dL (12.0-15.5) Hematocrit 24.2 % (36.0-47.0) 27.0 % (36.0-47.0) Mean Corpuscular Volume 99 fL (79-100) 101 fL (79-100) Mean Corpuscular Hemoglobin 31 pg (25-35) 31 pg (25-35) Mean Corpuscular Hemoglobin Concent 31 g/dL (31-37) 31 g/dL (31-37) Red Cell Distribution Width 18.4 % (11.5-14.5) 18.6 % (11.5-14.5) Platelet Count 214 x10^3/uL (140-400) 218 x10^3/uL (140-400) Neutrophils (%) (Auto) 93 % (31-73) 90 % (31-73) Lymphocytes (%) (Auto) 3 % (24-48) 5 % (24-48) Monocytes (%) (Auto) 3 % (0-9) 4 % (0-9) Eosinophils (%) (Auto) 1 % (0-3) 1 % (0-3) Basophils (%) (Auto) 0 % (0-3) 0 % (0-3) Neutrophils # (Auto) 15.1 x10^3/uL (1.8-7.7) 13.2 x10^3/uL (1.8-7.7) Lymphocytes # (Auto) 0.5 x10^3/uL (1.0-4.8) 0.7 x10^3/uL (1.0-4.8) Monocytes # (Auto) 0.5 x10^3/uL (0.0-1.1) 0.6 x10^3/uL (0.0-1.1) Eosinophils # (Auto) 0.1 x10^3/uL (0.0-0.7) 0.1 x10^3/uL (0.0-0.7) Basophils # (Auto) 0.0 x10^3/uL (0.0-0.2) 0.0 x10^3/uL (0.0-0.2) Segmented Neutrophils % 91 % (35-66) Lymphocytes % 6 % (24-48) Monocytes % 2 % (0-10) Eosinophils % 1 % (0-5) Platelet Estimate Adequate (ADEQUATE) Polychromasia Slight Poikilocytosis Slight Basophilic Stippling Present Anisocytosis Slight Spherocytes Occ Helmet Cells Occ Schistocytes Occ Sodium Level 134 mmol/L (136-145) 138 mmol/L (136-145) Potassium Level 3.9 mmol/L (3.5-5.1) 4.7 mmol/L (3.5-5.1) Chloride Level 98 mmol/L (98-107) 100 mmol/L (98-107) Carbon Dioxide Level 29 mmol/L (21-32) 28 mmol/L (21-32) Anion Gap 7 (6-14) 10 (6-14) Blood Urea Nitrogen 21 mg/dL (7-20) 26 mg/dL (7-20) Creatinine 3.6 mg/dL (0.6-1.0) 4.1 mg/dL (0.6-1.0) Estimated GFR (Cockcroft-Gault) 12.7 10.9 BUN/Creatinine Ratio 6 (6-20) 6 (6-20) Glucose Level 186 mg/dL (70-99) 68 mg/dL (70-99) Lactic Acid Level 1.6 mmol/L (0.4-2.0) Calcium Level 8.0 mg/dL (8.5-10.1) 8.0 mg/dL (8.5-10.1) Total Bilirubin 0.4 mg/dL (0.2-1.0) 0.4 mg/dL (0.2-1.0) Aspartate Amino Transf (AST/SGOT) 167 U/L (15-37) 149 U/L (15-37) Alanine Aminotransferase (ALT/SGPT) 246 U/L (14-59) 253 U/L (14-59) Alkaline Phosphatase 155 U/L (46-116) 163 U/L (46-116) Total Protein 5.4 g/dL (6.4-8.2) 5.1 g/dL (6.4-8.2) Albumin 1.4 g/dL (3.4-5.0) 1.6 g/dL (3.4-5.0) Albumin/Globulin Ratio 0.4 (1.0-1.7) 0.5 (1.0-1.7) Procalcitonin 0.69 ng/mL (0.00-0.10) SARS-CoV-2 Antigen (Rapid) Negative (NEGATIVE) Glucose (Fingerstick) 30 mg/dL (70-99) Test 02/02/21 08:43 02/02/21 08:56 02/02/21 09:27 Glucose (Fingerstick) 50 mg/dL (70-99) 184 mg/dL (70-99) 137 mg/dL (70-99) Laboratory Tests Test 02/01/21 17:55 02/01/21 20:40 02/02/21 06:55 02/02/21 08:21 White Blood Count 16.3 x10^3/uL (4.0-11.0) 14.7 x10^3/uL (4.0-11.0) Red Blood Count 2.46 x10^6/uL (3.50-5.40) 2.67 x10^6/uL (3.50-5.40) Hemoglobin 7.5 g/dL (12.0-15.5) 8.3 g/dL (12.0-15.5) Hematocrit 24.2 % (36.0-47.0) 27.0 % (36.0-47.0) Mean Corpuscular Volume 99 fL (79-100) 101 fL (79-100) Mean Corpuscular Hemoglobin 31 pg (25-35) 31 pg (25-35) Mean Corpuscular Hemoglobin Concent 31 g/dL (31-37) 31 g/dL (31-37) Red Cell Distribution Width 18.4 % (11.5-14.5) 18.6 % (11.5-14.5) Platelet Count 214 x10^3/uL (140-400) 218 x10^3/uL (140-400) Neutrophils (%) (Auto) 93 % (31-73) 90 % (31-73) Lymphocytes (%) (Auto) 3 % (24-48) 5 % (24-48) Monocytes (%) (Auto) 3 % (0-9) 4 % (0-9) Eosinophils (%) (Auto) 1 % (0-3) 1 % (0-3) Basophils (%) (Auto) 0 % (0-3) 0 % (0-3) Neutrophils # (Auto) 15.1 x10^3/uL (1.8-7.7) 13.2 x10^3/uL (1.8-7.7) Lymphocytes # (Auto) 0.5 x10^3/uL (1.0-4.8) 0.7 x10^3/uL (1.0-4.8) Monocytes # (Auto) 0.5 x10^3/uL (0.0-1.1) 0.6 x10^3/uL (0.0-1.1) Eosinophils # (Auto) 0.1 x10^3/uL (0.0-0.7) 0.1 x10^3/uL (0.0-0.7) Basophils # (Auto) 0.0 x10^3/uL (0.0-0.2) 0.0 x10^3/uL (0.0-0.2) Segmented Neutrophils % 91 % (35-66) Lymphocytes % 6 % (24-48) Monocytes % 2 % (0-10) Eosinophils % 1 % (0-5) Platelet Estimate Adequate (ADEQUATE) Polychromasia Slight Poikilocytosis Slight Basophilic Stippling Present Anisocytosis Slight Spherocytes Occ Helmet Cells Occ Schistocytes Occ Sodium Level 134 mmol/L (136-145) 138 mmol/L (136-145) Potassium Level 3.9 mmol/L (3.5-5.1) 4.7 mmol/L (3.5-5.1) Chloride Level 98 mmol/L (98-107) 100 mmol/L (98-107) Carbon Dioxide Level 29 mmol/L (21-32) 28 mmol/L (21-32) Anion Gap 7 (6-14) 10 (6-14) Blood Urea Nitrogen 21 mg/dL (7-20) 26 mg/dL (7-20) Creatinine 3.6 mg/dL (0.6-1.0) 4.1 mg/dL (0.6-1.0) Estimated GFR (Cockcroft-Gault) 12.7 10.9 BUN/Creatinine Ratio 6 (6-20) 6 (6-20) Glucose Level 186 mg/dL (70-99) 68 mg/dL (70-99) Lactic Acid Level 1.6 mmol/L (0.4-2.0) Calcium Level 8.0 mg/dL (8.5-10.1) 8.0 mg/dL (8.5-10.1) Total Bilirubin 0.4 mg/dL (0.2-1.0) 0.4 mg/dL (0.2-1.0) Aspartate Amino Transf (AST/SGOT) 167 U/L (15-37) 149 U/L (15-37) Alanine Aminotransferase (ALT/SGPT) 246 U/L (14-59) 253 U/L (14-59) Alkaline Phosphatase 155 U/L (46-116) 163 U/L (46-116) Total Protein 5.4 g/dL (6.4-8.2) 5.1 g/dL (6.4-8.2) Albumin 1.4 g/dL (3.4-5.0) 1.6 g/dL (3.4-5.0) Albumin/Globulin Ratio 0.4 (1.0-1.7) 0.5 (1.0-1.7) Procalcitonin 0.69 ng/mL (0.00-0.10) SARS-CoV-2 Antigen (Rapid) Negative (NEGATIVE) Glucose (Fingerstick) 30 mg/dL (70-99) Test 02/02/21 08:43 02/02/21 08:56 02/02/21 09:27 Glucose (Fingerstick) 50 mg/dL (70-99) 184 mg/dL (70-99) 137 mg/dL (70-99) Review All relevant outside records, renal labs, imaging studies, telemetry/EKG's were reviewed. Images Images ARTERIAL STUDY LOWER EXT RIGHT INDICATION: Reason: wounds on foot / Spl. Instructions: / History: COMPARISON: None. FINDINGS: Spectral Doppler, color and grayscale ultrasound images are obtained through the right leg arterial system. There is some limitation secondary to overlying structures obscuring. Multifocal plaque is identified. This includes calcific atherosclerosis. There are monophasic waveforms seen throughout the right leg arterial system including common femoral, proximal deep femoral, superficial femoral, popliteal as well as the visualized calf arteries. There is also some blunting of the waveforms. Tardus parvus morphology within the calf vessels. Edema of soft tissues. IMPRESSION: * Monophasic waveforms throughout the right leg arterial system which is most severe within the calf. This could be secondary to multifocal plaque with stenosis. Electronically signed by: Liu Mcgill MD (02/01/2021 7:44 PM) [id number] DAVID BOWMAN MD Feb 02, 2021 09:40
[2021-02-02] MEDS ORDERED: fentaNYL PF VIAL 100 MCG/2 ML VIAL IVP PRN ×4 (10:00)
[2021-02-02] MEDS ORDERED: PROCHLORPERAZINE 10 MG/2 ML VIAL. IVP PRN ×2 (10:00)
[2021-02-02] MEDS ORDERED: HYDROmorphone 2 MG/ML VIAL IVP PRN ×2 (10:00)
[2021-02-02] MEDS ORDERED: IV RINGERS,LACTATED 1000ML 1,000 ML IV SCH ×2 (10:00)
[2021-02-02] MEDS ORDERED: MORPHINE SULFATE 2 MG/ML INJ. IVP PRN ×2 (10:00)
[2021-02-02] MEDS: PIPERACILLIN/TAZOBACTAM 2.25 GM in IV NORMAL SALINE 50ML 50 ML IV SCH ×3 (10:19→22:08)
--- NOTE | 2021-02-02 11:02 | NUR ---
SW following. Discussed with RN, pt from home, room air, NPO, rapid COVID-19 negative. Pt having surgery this afternoon - partial foot amputation. RN advised no SW needs at this time. SW will continue to follow.
--- NOTE | 2021-02-02 11:20 | CONS ---
DATE OF CONSULTATION: 02/02/2021 CHIEF COMPLAINT: Right foot pain and gangrene. HISTORY OF PRESENT ILLNESS: The patient is a 65-year-old female with a long history of vascular disease including end-stage renal disease, on chronic hemodialysis; severe peripheral arterial disease; amputations of toes in her feet and history of percutaneous revascularization. She was recently hospitalized at [facility] and underwent an angiogram of her right lower extremity with angioplasty of her anterior tibial artery on 01/16/2021. I reviewed her angiogram images and her vessels are patent throughout the right iliac, femoral, superficial femoral artery and popliteal artery. She has segmental occlusions in her right anterior tibial artery which were successfully treated with angioplasty and she has a patent anterior tibial artery and dorsalis pedis artery flow to her right foot. She has chronic occlusion of the tibioperoneal trunk and has single vessel runoff through her anterior tibial artery. She was discharged to rehabilitation and reports that gangrene started developing in her right foot and pain. It is unclear exactly how long this has been going on, but it seems to have been present and the reason she had intervention at [facility]. She reports no pain in her left foot. She does have a peritoneal dialysis catheter in place along with a left upper arm dialysis access, which she used yesterday for hemodialysis. Per chart review, she has been on aspirin and Plavix at the rehabilitation center. REVIEW OF SYSTEMS: A 10-point review of systems was performed, which is otherwise negative besides what is mentioned in the history of present illness. PAST MEDICAL HISTORY: Includes end-stage renal disease, on hemodialysis; peripheral arterial disease; coronary artery disease; hypertension; hypothyroidism; neuropathy. PAST SURGICAL HISTORY: Includes coronary artery bypass graft, gastric bypass, peritoneal dialysis catheter, left arm dialysis access, toe amputations in her left foot, and recent percutaneous angioplasty of her right lower extremity as described above. ALLERGIES: INCLUDE MEDICATION PREGABALIN. MEDICATIONS: Please see her full MAR. She has been on aspirin and Plavix since her recent intervention. SOCIAL HISTORY: She does not smoke, but she did smoke in the past. She does not drink alcohol or use drugs. PHYSICAL EXAMINATION: VITAL SIGNS: Her last blood pressure recorded in the computer is 80/33; however, she is awake and alert, in no distress. Her temperature was 98.3, pulse was 72, and 97% on room air. NECK: Supple. ABDOMEN: Her abdomen is soft, nondistended and nontender. There is peritoneal dialysis catheter in place. EXTREMITIES: Her bilateral upper extremities are warm. Her left upper arm has bandages over her access which is patent. There is no swelling in her forearm. No pain in her hand. Her right lower extremity, there is a palpable pulse in her right groin and her access site is healing. There is no hematoma. Her right lower extremity is warm without swelling. Her right foot has demarcated gangrene of the right fifth toe extending onto the lateral foot down to the mid foot. There is also a dry area of black gangrene on her heel. There is no purulent drainage. It is foul smelling and mild erythema. Her left foot has healed toe amputation site. She has no erythema or swelling. There is a small scab on her mid toe with no signs of infection and it is superficial. On Doppler exam, she has strong dopplerable flow in the right dorsalis pedis location in her right foot showing patency of her recent intervention and she has dopplerable dorsalis pedis pulse in her left foot. NEUROLOGIC: She is awake and alert, moving all 4 extremities with good strength, normal speech, no gross neurologic deficits. She did have an arterial duplex scan here, which shows monophasic flow through the right leg; however, I did review her recent angiogram films and by Doppler exam, her dorsalis pedis is widely patent. DIAGNOSTIC DATA: X-ray of her right foot showed no osteomyelitis. ASSESSMENT AND PLAN: The patient is a 65-year-old female with right lower extremity peripheral arterial disease who recently underwent percutaneous revascularization with angioplasty of her anterior tibial artery. Upon review of her films, her vessels in her right leg are patent with single vessel runoff through her anterior tibial and dorsalis pedis vessel. By Doppler exam, she has strong flow at her dorsalis pedis in her right foot. She has demarcated gangrene of the right fifth toe extending on to the lateral foot and right heel. She requires a right fifth toe ray amputation including amputation of the lateral foot and debridement of her right heel. This will be set up in surgery today. I recommend IV antibiotics and Infectious Disease has been consulted. We will continue her daily aspirin and Plavix. YONY/TAMMY/THOMAS DR: Kvng TID: [id number]
[2021-02-02 11:27] VITALS: BP 96/31
--- NOTE | 2021-02-02 11:38 | PDOC1 ---
History and Physical Date of Service: DOS: DATE: 02/02/21 TIME: 11:36 Chief Complaint: Problems: (1) Acute renal failure (2) Gangrenous toe (3) Osteomyelitis of ankle or foot, left, acute (4) PAD (peripheral artery disease) (5) End stage kidney disease (6) Leukocytosis (7) Right foot infection Chief Complain: Diabetic foot disease History of Present Illness: HPI: This is a 65-year-old white female who has a long history of diabetic vascular disease. Last night she presented with right foot infection. Is quite malodorous. She has several wounds but in particular on the right lateral aspect of her right foot I discussed the case with ER physician we have admitted the patient with consulting vascular surgery Patient scheduled to go to surgery today around 1:00 for partial foot amputation Past Medical/Surgical History: PMH/PSH: CAD, Diabetes-Type II, Hypertension, Hypothyroid, Renal Disease Additional Past Medical Histor: GOUT, ESRD, RLS, NEUROPATHY, CABG, BARIATRIC SURGERY ([employer]) Past Surgical History: Coronary Bypass Surgery, Gastric Bypass Additional Past Surgical Histo: back ([employer]) Smoking Status: Former Smoker Allergies: Allergies: Coded Allergies: pregabalin (Verified Allergy, Intermediate, 02/01/21) Family History: Family History: Diabetes Social History: Social History: She used to smoke she quit no drink or drugs 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 Current Medications: Current Medications Current Medications Piperacillin Sod/ Tazobactam Sod 4.5 gm/Sodium Chloride 100 ml @ 200 mls/hr 1X ONCE IV Last administered on 02/01/21at 18:10; Start 02/01/21 at 17:45; Stop 02/01/21 at 18:14; Status DC Vancomycin HCl (Vanco Per Pharmacy) 1 each 1X ONCE MC ; Start 02/01/21 at 17:45; Stop 02/01/21 at 18:06; Status DC Morphine Sulfate (Morphine Sulfate) 2 mg PRN Q15MIN PRN IV/SQ PAIN GREATER THAN 3/10; Start 02/01/21 at 17:45; Stop 02/02/21 at 17:44 Vancomycin HCl 250 ml @ 250 mls/hr 1X ONCE IV Last administered on 02/01/21at 19:56; Start 02/01/21 at 18:15; Stop 02/01/21 at 19:14; Status DC Ondansetron HCl (Zofran) 4 mg PRN Q8HRS PRN IVP NAUSEA/VOMITING; Start 02/01/21 at 20:30; Stop 02/02/21 at 20:29 Fentanyl Citrate (Fentanyl 2ml Vial) 50 mcg PRN Q1HR PRN IVP PAIN Last administered on 02/02/21at 10:45; Start 02/01/21 at 20:30; Stop 02/02/21 at 20:29 Clopidogrel Bisulfate (Plavix) 75 mg DAILYWBKFT PO ; Start 02/02/21 at 08:00 Aspirin (Ecotrin) 81 mg DAILYWBKFT PO ; Start 02/02/21 at 08:00 Piperacillin Sod/ Tazobactam Sod 2.25 gm/Sodium Chloride 50 ml @ 100 mls/hr Q8HRS IV Last administered on 02/02/21at 10:19; Start 02/02/21 at 09:00 Vancomycin HCl (Vanco Per Pharmacy) 1 each PRN DAILY PRN MC SEE COMMENTS; Start 02/02/21 at 08:30 Dextrose (Dextrose 50%-Water Syringe) 25 gm STK-MED ONCE IV ; Start 02/02/21 at 08:40; Stop 02/02/21 at 08:40; Status DC Dextrose (Dextrose 50%-Water Syringe) 12.5 gm PRN Q15MIN PRN IV SEE COMMENTS Last administered on 02/02/21at 08:45; Start 02/02/21 at 09:00 Fentanyl Citrate (Fentanyl 2ml Vial) 25 mcg PRN Q5MIN PRN IVP MILD PAIN 1-3; Start 02/02/21 at 10:00; Stop 02/02/21 at 20:00 Fentanyl Citrate (Fentanyl 2ml Vial) 50 mcg PRN Q5MIN PRN IVP MODERATE PAIN 4- 6; Start 02/02/21 at 10:00; Stop 02/02/21 at 20:00 Morphine Sulfate (Morphine Sulfate) 1 mg PRN Q10MIN PRN IVP SEVERE PAIN 7-10; Start 02/02/21 at 10:00; Stop 02/02/21 at 20:00 Ringer's Solution 1,000 ml @ 30 mls/hr Q24H IV ; Start 02/02/21 at 10:00; Stop 02/02/21 at 21:59 Hydromorphone HCl (Dilaudid) 0.5 mg PRN Q10MIN PRN IVP SEVERE PAIN 7-10, 2nd CHOICE; Start 02/02/21 at 10:00; Stop 02/03/21 at 09:59 Prochlorperazine Edisylate (Compazine) 5 mg PACU PRN PRN IVP NAUSEA, MRX1; Start 02/02/21 at 10:00; Stop 02/02/21 at 20:00 Fentanyl Citrate (Fentanyl 2ml Vial) 25 mcg PRN Q5MIN PRN IVP MILD PAIN 1-3; Start 02/02/21 at 10:00; Stop 02/03/21 at 09:59; Status Cancel Fentanyl Citrate (Fentanyl 2ml Vial) 50 mcg PRN Q5MIN PRN IVP MODERATE PAIN 4- 6; Start 02/02/21 at 10:00; Stop 02/03/21 at 09:59; Status UNV Morphine Sulfate (Morphine Sulfate) 1 mg PRN Q10MIN PRN IVP SEVERE PAIN 7-10; Start 02/02/21 at 10:00; Stop 02/03/21 at 09:59; Status UNV Ringer's Solution 1,000 ml @ 30 mls/hr Q24H IV ; Start 02/02/21 at 10:00; Stop 02/02/21 at 21:59; Status UNV Hydromorphone HCl (Dilaudid) 0.5 mg PRN Q10MIN PRN IVP SEVERE PAIN 7-10, 2nd CHOICE; Start 02/02/21 at 10:00; Stop 02/03/21 at 09:59; Status UNV Prochlorperazine Edisylate (Compazine) 5 mg PACU PRN PRN IVP NAUSEA, MRX1; Start 02/02/21 at 10:00; Stop 02/03/21 at 09:59; Status UNV Epoetin Galileo-epbx (RETACRIT for ESRD PTS) 10,000 unit MoWeFr@2100 SQ ; Start 02/02/21 at 21:00; Status UNV Active Scripts Active Feosol (Ferrous Sulfate) 325 Mg Tablet 325 Mg PO DAILYWBKFT 30 Days Reported Lasix (Furosemide) 80 Mg Tablet 1 Tab PO DAILY 30 Days Humalog (Insulin Lispro) 100 Unit/1 Ml Vial 100 Unit SQ TIDAC Travatan Z (Travoprost) 5 Ml Drops 1 Drop EACHEYE DAILY Zofran (Ondansetron Hcl) 4 Mg Tablet 1 Tab PO Q6HRS Senna-Docusate Sodium Tablet (Sennosides/Docusate Sodium) 1 Each Tablet 1 Tab PO DAILY 20 Days Renaplex-D Tablet (B,C/Folic/Zinc/Selenometh/D3/E) 1 Each Tablet 1 Each PO DAILY Clopidogrel (Clopidogrel Bisulfate) 75 Mg Tablet 1 Tab PO DAILY Protonix (Pantoprazole Sodium) 40 Mg Tablet.dr 40 Mg PO DAILYAC Oxycodone Hcl 5 Mg Capsule 5 Mg PO PRN Q6HRS PRN Mirapex (Pramipexole Di-Hcl) 0.25 Mg Tablet 0.5 Mg PO DAILY Miralax (Polyethylene Glycol 3350) 17 Gm Powd.pack 1 Packet PO DAILY PRN 2 Days dissolve in water Midodrine Hcl 2.5 Mg Tablet 2.5 Mg PO TID Methocarbamol 500 Mg Tablet 500 Mg PO PRN Q8HRS D3-50 (Cholecalciferol (Vitamin D3)) 50,000 Unit Capsule 1,000 Unit PO DAILY Calcium Carbonate 500 Mg Tablet 750 Mg PO BID Calcium Acetate 667 Mg Tablet 2 Tab PO DAILY 30 Days Arimidex (Anastrozole) 1 Mg Tablet 1 Tab PO DAILY 30 Days Allopurinol 100 Mg Tablet 1 Tab PO DAILY Acetaminophen 325 Mg Tablet 2 Tab PO PRN Q6HRS PRN 30 Days Prilosec Otc (Omeprazole Magnesium) 20 Mg Tablet.dr 1 Tab PO DAILY Calcium 500 + D Tablet (Calcium Carbonate/Vitamin D3) 1 Each Tablet 1 Each PO DAILY Levothyroxine Sodium 200 Mcg Tablet 200 Mcg PO DAILYAC Tresiba Flextouch U-200 (Insulin Degludec) 200 Unit/1 Ml Insuln.pen 10 Unit SQ HS Lyrica (Pregabalin) 150 Mg Capsule 150 Mg PO Q3DAYS 30 Days Amlodipine-Benazepril 5-20 Mg (Amlodipine Besylate/Benazepril) 1 Each Capsule 1 Cap PO DAILY Sodium Bicarbonate 650 Mg Tablet 650 Mg PO TID Mirapex (Pramipexole Di-Hcl) 0.25 Mg Tablet 1 Tab PO DAILY Aspir 81 (Aspirin) 81 Mg Tablet.dr 81 Mg PO Atorvastatin Calcium 40 Mg Tablet 80 Mg PO HS ROS: Review of Systems Review of System REVIEW OF SYSTEMS: GENERAL: Denies weakness SKIN: No bruising, hair changes or rashes. EYES: No blurred, double or loss of vision. NOSE AND THROAT: No history of nosebleeds, hoarseness or sore throat. HEART: No history of palpitations, chest pain or shortness of breath on exertion. LUNGS: Denies cough, hemoptysis, wheezing or shortness of breath. GASTROINTESTINAL: Denies changes in appetite, nausea, vomiting, diarrhea or constipation. GENITOURINARY: No history of frequency, urgency, hesitancy or nocturia. NEUROLOGIC: Denies history of numbness, tingling, or tremor. PSYCHIATRIC: No history of panic, anxiety or depression. ENDOCRINE: No history of heat or cold intolerance, polyuria or polydipsia. EXTREMITIES: Complains of right foot diabetic lesions Physical Exam: Vital Signs: Vital Signs Date Time Temp Pulse Resp B/P (MAP) Pulse Ox O2 Delivery O2 Flow Rate FiO2 02/02/21 11:27 98.3 75 18 96/31 (52) 91 Room Air 98.3 Physcial Exam: GEN: No apparent distress. Alert and oriented HEENT: Normal cephalic, atraumatic, external auditory canals are patent EYES: Extraocular muscles are intact, pupil are equally round and reactive to light and accommodation MUSCULOSKELETAL: Well developed , well nourished, good range of motion ENDOCRINE: No thyromegaly was palpated LYMPHATICS: No cervical chain or axillary nodes were noted HEMATOPOIETIC: No bruising NECK: Supple, no JVD, no thyromegaly was noted LUNGS: Clear to auscultation in all lung huang without rhonchi or wheezing HEART: RRR, S!, S2 present. Peripheral pulses intact, no obvious murmurs noted ABDOMEN: Soft, nontender. Positive bowel sounds, no organomegaly, normal bowel sounds EXTREMITIES: She has several toes missing the right foot also has a large diabetic lesion please see the pictures NEUROLOGIC: Normal speech and tone. A&O x 3, moves all extremities, no obvi ous focal deficits PSYCHIATRIC: Normal affect, normal mood. Stable SKIN: No ulcerations or rashes, good skin turgor, no jaundice VASCULAR: Good capillary refill, neurovascular bundle appears to be intact Labs: Labs: Laboratory Tests Test 02/01/21 17:55 02/01/21 20:40 02/02/21 06:55 02/02/21 08:21 White Blood Count 16.3 x10^3/uL (4.0-11.0) 14.7 x10^3/uL (4.0-11.0) Red Blood Count 2.46 x10^6/uL (3.50-5.40) 2.67 x10^6/uL (3.50-5.40) Hemoglobin 7.5 g/dL (12.0-15.5) 8.3 g/dL (12.0-15.5) Hematocrit 24.2 % (36.0-47.0) 27.0 % (36.0-47.0) Mean Corpuscular Volume 99 fL (79-100) 101 fL (79-100) Mean Corpuscular Hemoglobin 31 pg (25-35) 31 pg (25-35) Mean Corpuscular Hemoglobin Concent 31 g/dL (31-37) 31 g/dL (31-37) Red Cell Distribution Width 18.4 % (11.5-14.5) 18.6 % (11.5-14.5) Platelet Count 214 x10^3/uL (140-400) 218 x10^3/uL (140-400) Neutrophils (%) (Auto) 93 % (31-73) 90 % (31-73) Lymphocytes (%) (Auto) 3 % (24-48) 5 % (24-48) Monocytes (%) (Auto) 3 % (0-9) 4 % (0-9) Eosinophils (%) (Auto) 1 % (0-3) 1 % (0-3) Basophils (%) (Auto) 0 % (0-3) 0 % (0-3) Neutrophils # (Auto) 15.1 x10^3/uL (1.8-7.7) 13.2 x10^3/uL (1.8-7.7) Lymphocytes # (Auto) 0.5 x10^3/uL (1.0-4.8) 0.7 x10^3/uL (1.0-4.8) Monocytes # (Auto) 0.5 x10^3/uL (0.0-1.1) 0.6 x10^3/uL (0.0-1.1) Eosinophils # (Auto) 0.1 x10^3/uL (0.0-0.7) 0.1 x10^3/uL (0.0-0.7) Basophils # (Auto) 0.0 x10^3/uL (0.0-0.2) 0.0 x10^3/uL (0.0-0.2) Segmented Neutrophils % 91 % (35-66) Lymphocytes % 6 % (24-48) Monocytes % 2 % (0-10) Eosinophils % 1 % (0-5) Platelet Estimate Adequate (ADEQUATE) Polychromasia Slight Poikilocytosis Slight Basophilic Stippling Present Anisocytosis Slight Spherocytes Occ Helmet Cells Occ Schistocytes Occ Sodium Level 134 mmol/L (136-145) 138 mmol/L (136-145) Potassium Level 3.9 mmol/L (3.5-5.1) 4.7 mmol/L (3.5-5.1) Chloride Level 98 mmol/L (98-107) 100 mmol/L (98-107) Carbon Dioxide Level 29 mmol/L (21-32) 28 mmol/L (21-32) Anion Gap 7 (6-14) 10 (6-14) Blood Urea Nitrogen 21 mg/dL (7-20) 26 mg/dL (7-20) Creatinine 3.6 mg/dL (0.6-1.0) 4.1 mg/dL (0.6-1.0) Estimated GFR (Cockcroft-Gault) 12.7 10.9 BUN/Creatinine Ratio 6 (6-20) 6 (6-20) Glucose Level 186 mg/dL (70-99) 68 mg/dL (70-99) Lactic Acid Level 1.6 mmol/L (0.4-2.0) Calcium Level 8.0 mg/dL (8.5-10.1) 8.0 mg/dL (8.5-10.1) Total Bilirubin 0.4 mg/dL (0.2-1.0) 0.4 mg/dL (0.2-1.0) Aspartate Amino Transf (AST/SGOT) 167 U/L (15-37) 149 U/L (15-37) Alanine Aminotransferase (ALT/SGPT) 246 U/L (14-59) 253 U/L (14-59) Alkaline Phosphatase 155 U/L (46-116) 163 U/L (46-116) Total Protein 5.4 g/dL (6.4-8.2) 5.1 g/dL (6.4-8.2) Albumin 1.4 g/dL (3.4-5.0) 1.6 g/dL (3.4-5.0) Albumin/Globulin Ratio 0.4 (1.0-1.7) 0.5 (1.0-1.7) Procalcitonin 0.69 ng/mL (0.00-0.10) SARS-CoV-2 RNA (RAFAEL) Invalid (Negative) SARS-CoV-2 Antigen (Rapid) Negative (NEGATIVE) Glucose (Fingerstick) 30 mg/dL (70-99) Test 02/02/21 08:43 02/02/21 08:56 02/02/21 09:27 02/02/21 10:39 Glucose (Fingerstick) 50 mg/dL (70-99) 184 mg/dL (70-99) 137 mg/dL (70-99) 106 mg/dL (70-99) Test 02/02/21 11:21 Glucose (Fingerstick) 94 mg/dL (70-99) Laboratory Tests Test 02/01/21 17:55 02/01/21 20:40 02/02/21 06:55 02/02/21 08:21 White Blood Count 16.3 x10^3/uL (4.0-11.0) 14.7 x10^3/uL (4.0-11.0) Red Blood Count 2.46 x10^6/uL (3.50-5.40) 2.67 x10^6/uL (3.50-5.40) Hemoglobin 7.5 g/dL (12.0-15.5) 8.3 g/dL (12.0-15.5) Hematocrit 24.2 % (36.0-47.0) 27.0 % (36.0-47.0) Mean Corpuscular Volume 99 fL (79-100) 101 fL (79-100) Mean Corpuscular Hemoglobin 31 pg (25-35) 31 pg (25-35) Mean Corpuscular Hemoglobin Concent 31 g/dL (31-37) 31 g/dL (31-37) Red Cell Distribution Width 18.4 % (11.5-14.5) 18.6 % (11.5-14.5) Platelet Count 214 x10^3/uL (140-400) 218 x10^3/uL (140-400) Neutrophils (%) (Auto) 93 % (31-73) 90 % (31-73) Lymphocytes (%) (Auto) 3 % (24-48) 5 % (24-48) Monocytes (%) (Auto) 3 % (0-9) 4 % (0-9) Eosinophils (%) (Auto) 1 % (0-3) 1 % (0-3) Basophils (%) (Auto) 0 % (0-3) 0 % (0-3) Neutrophils # (Auto) 15.1 x10^3/uL (1.8-7.7) 13.2 x10^3/uL (1.8-7.7) Lymphocytes # (Auto) 0.5 x10^3/uL (1.0-4.8) 0.7 x10^3/uL (1.0-4.8) Monocytes # (Auto) 0.5 x10^3/uL (0.0-1.1) 0.6 x10^3/uL (0.0-1.1) Eosinophils # (Auto) 0.1 x10^3/uL (0.0-0.7) 0.1 x10^3/uL (0.0-0.7) Basophils # (Auto) 0.0 x10^3/uL (0.0-0.2) 0.0 x10^3/uL (0.0-0.2) Segmented Neutrophils % 91 % (35-66) Lymphocytes % 6 % (24-48) Monocytes % 2 % (0-10) Eosinophils % 1 % (0-5) Platelet Estimate Adequate (ADEQUATE) Polychromasia Slight Poikilocytosis Slight Basophilic Stippling Present Anisocytosis Slight Spherocytes Occ Helmet Cells Occ Schistocytes Occ Sodium Level 134 mmol/L (136-145) 138 mmol/L (136-145) Potassium Level 3.9 mmol/L (3.5-5.1) 4.7 mmol/L (3.5-5.1) Chloride Level 98 mmol/L (98-107) 100 mmol/L (98-107) Carbon Dioxide Level 29 mmol/L (21-32) 28 mmol/L (21-32) Anion Gap 7 (6-14) 10 (6-14) Blood Urea Nitrogen 21 mg/dL (7-20) 26 mg/dL (7-20) Creatinine 3.6 mg/dL (0.6-1.0) 4.1 mg/dL (0.6-1.0) Estimated GFR (Cockcroft-Gault) 12.7 10.9 BUN/Creatinine Ratio 6 (6-20) 6 (6-20) Glucose Level 186 mg/dL (70-99) 68 mg/dL (70-99) Lactic Acid Level 1.6 mmol/L (0.4-2.0) Calcium Level 8.0 mg/dL (8.5-10.1) 8.0 mg/dL (8.5-10.1) Total Bilirubin 0.4 mg/dL (0.2-1.0) 0.4 mg/dL (0.2-1.0) Aspartate Amino Transf (AST/SGOT) 167 U/L (15-37) 149 U/L (15-37) Alanine Aminotransferase (ALT/SGPT) 246 U/L (14-59) 253 U/L (14-59) Alkaline Phosphatase 155 U/L (46-116) 163 U/L (46-116) Total Protein 5.4 g/dL (6.4-8.2) 5.1 g/dL (6.4-8.2) Albumin 1.4 g/dL (3.4-5.0) 1.6 g/dL (3.4-5.0) Albumin/Globulin Ratio 0.4 (1.0-1.7) 0.5 (1.0-1.7) Procalcitonin 0.69 ng/mL (0.00-0.10) SARS-CoV-2 RNA (RAFAEL) Invalid (Negative) SARS-CoV-2 Antigen (Rapid) Negative (NEGATIVE) Glucose (Fingerstick) 30 mg/dL (70-99) Test 02/02/21 08:43 10/8/21 08:56 02/02/21 09:27 02/02/21 10:39 Glucose (Fingerstick) 50 mg/dL (70-99) 184 mg/dL (70-99) 137 mg/dL (70-99) 106 mg/dL (70-99) Test 02/02/21 11:21 Glucose (Fingerstick) 94 mg/dL (70-99) Assessment/Plan Assessment/Plan Diabetic foot ulcers Plan IV antibiotics Consult vascular surgery She is scheduled for surgery later today Postoperatively she will need wound care and as needed pain meds PT OT Home meds DVT prophylaxis Full code Suspect she will need to go to prison or long-term acute care a few days question Justifications for Admission Other Justification MAXI GARCIA III DO Feb 02, 2021 11:38
[2021-02-02] MEDS: IV DEXTROSE 5% 1,000 ML IV SCH (13:05)
[2021-02-02] MEDS ORDERED: PROPOFOL 10 MG/ML (20ML) VIAL. IV ONE (13:39)
[2021-02-02] MEDS ORDERED: fentaNYL PF VIAL 100 MCG/2 ML VIAL ONE (13:39)
[2021-02-02] MEDS ORDERED: LIDOCAINE 2% PF 5 ML VIAL. ONE (13:39)
[2021-02-02] MEDS ORDERED: PHENYLEPHRINE in 0.9% NACL PF 1 MG/10 ML SYRINGE. IV ONE (13:40)
[2021-02-02] MEDS ORDERED: IV NORMAL SALINE 1000ML BAG 1,000 ML IV SCH (14:00)
[2021-02-02] MEDS ORDERED: ePHEDrine PF IN SALINE 50 MG/10 ML SYRINGE. IV ONE (15:00)
[2021-02-02] MEDS ORDERED: DESFLURANE 31 TO 60 MINUTES IH ONE (15:09)
[2021-02-02] MEDS ORDERED: SEVOFLURANE 31 TO 60 MINUTES. IH ONE (15:09)
[2021-02-02] MEDS ORDERED: ONDANSETRON PF 4 MG/2 ML VIAL. ONE (15:09)
[2021-02-02] MEDS ORDERED: DEXAMETHASONE SOD PHOS 4 MG/ML VIAL ONE (15:09)
[2021-02-02] MEDS ORDERED: IV NORMAL SALINE 1000ML BAG 1,000 ML IV ONE (15:30)
--- NOTE | 2021-02-02 15:44 | PDOC ---
BRIEF OPERATIVE NOTE Date: Feb 02, 2021 Pre-Op Diagnosis Atherosclerosis with gangrene right fifth toe Atherosclerosis with gangrene right heel Post-Op Diagnosis Same Procedure Performed Ray amputation of the right fifth toe including the metatarsal head Sharp excisional debridement of the right heel with a wound area of 4 x 3 cm isolated to the subcutaneous tissue Surgeon González Signh DO, FACS Anesthesia Type: General Blood Loss minimal Specimens Obtained none Complications none Operative Note Patient was brought to the operating suite and placed in the supine position. The right foot was prepped and draped in sterile fashion after establishing general anesthesia. A timeout procedure was performed. It was confirmed that the patient did receive appropriate perioperative antibiotics and the correct operative site was marked and draped. Next a ray amputation incision was performed on the right fifth toe and the entire toe was disarticulated from the metatarsal head and handed off the field. Soria scissors were next used to circumferentially dissect the entire metatarsal bone and then the bone was transected at the level of the midfoot. The remaining bony tissue was removed using a rongeur forcep. All tendinous material was also sharply removed. Patient had mild amount of bleeding but certainly was not brisk. At this point in time a #10 blade scalpel was used to excise the gangrenous eschar at the patient's heel down to the level of the subcutaneous tissue. All nonviable tissue was removed and excised. A total wound area of 4 x 3 cm was created. Patient also had minimal bleeding from this wound. Next both wounds were copiously irrigated with saline solution. Nonadherent dressings were placed followed by sterile dressing. Patient tolerated procedure well and was taken to the postanesthesia care unit in stable condition thank you GONZÁLEZ SINGH DO Feb 02, 2021 15:44
[2021-02-02 20:30] VITALS: BP 97/44
[2021-02-02] MEDS: EPOETIN ALFA-EPBX for ESRD 20,000 UNIT/ML VIAL. SQ SCH (21:45)
[2021-02-02 23:00] VITALS: BP 133/46
[2021-02-03] MEDS: fentaNYL PF VIAL 100 MCG/2 ML VIAL IVP PRN ×6 (01:28→22:48)
[2021-02-03 03:00] VITALS: BP 111/55
[2021-02-03] MEDS ORDERED: VANCOMYCIN RANDOM LEVEL. MC ONE (05:00)
[2021-02-03] MEDS: PIPERACILLIN/TAZOBACTAM 2.25 GM in IV NORMAL SALINE 50ML 50 ML IV SCH ×3 (06:10→22:37)
--- NOTE | 2021-02-03 07:14 | PDOC ---
Infectious Disease Note Subjective: Subjective Patient underwent surgery yesterday Post operative pain is under control Vital Signs: Vital Signs Vital Signs Date Time Temp Pulse Resp B/P (MAP) Pulse Ox O2 Delivery O2 Flow Rate FiO2 02/03/21 06:41 Nasal Cannula 2.0 02/03/21 03:00 98.0 64 18 111/55 (73) 94 98.0 Physical Exam: PHYSICAL EXAM GENERAL: Alert and oriented x 3 female, lying in bed comfortably, in no acute distress. HEENT: Normocephalic, atraumatic and anicteric. No thrush. Oral mucosa moist. NECK: Supple. LUNGS: Clear bilaterally. No wheezing. HEART: S1, S2. No murmurs. ABDOMEN: Soft, nontender, and nondistended. EXTREMITIES: Right lower extremity dressing in place intact not taken down Left foot no acute change BACK: Reveals normal curvature. No CVA tenderness. NEUROLOGIC: Alert and oriented x 3, grossly nonfocal. PSYCHIATRIC: Calm and cooperative. Medications: Inpatient Meds: Medications reviewed. Labs: Lab Laboratory Tests Test 02/02/21 08:21 02/02/21 08:43 02/02/21 08:56 02/02/21 09:27 Glucose (Fingerstick) 30 mg/dL (70-99) 50 mg/dL (70-99) 184 mg/dL (70-99) 137 mg/dL (70-99) Test 02/02/21 10:39 02/02/21 11:21 02/02/21 12:26 02/02/21 13:31 Glucose (Fingerstick) 106 mg/dL (70-99) 94 mg/dL (70-99) 65 mg/dL (70-99) 111 mg/dL (70-99) Test 02/02/21 14:46 02/02/21 15:23 02/02/21 17:11 02/02/21 21:26 Glucose (Fingerstick) 109 mg/dL (70-99) 111 mg/dL (70-99) 112 mg/dL (70-99) 224 mg/dL (70-99) Test 02/03/21 01:38 Glucose (Fingerstick) 215 mg/dL (70-99) Objective: Assessment: 1. Right fifth toe gangrene with right lateral and right heel wounds. 2. Peripheral vascular disease, status post angioplasty at on 01/16/2021. 3. End-stage renal disease, on hemodialysis. 4. Diabetes with neuropathy. 5. Protein-calorie malnutrition. 6. Abnormal LFTs. 7. Anemia. Ray amputation of the right fifth toe including the metatarsal head I and D of the right heel February 02, 2021 Plan: Plan of Care Continue IV vancomycin and Zosyn. Wound care as directed Monitor labs and cultures continue supportive care JACQUIE AGUILAR MD Feb 03, 2021 07:14
[2021-02-03] MEDS ORDERED: DIALYSIS PATIENT. MC PRN (07:30)
[2021-02-03] MEDS ORDERED: IV NORMAL SALINE 1000ML BAG 1,000 ML IV PRN ×2 (07:30)
[2021-02-03] MEDS: ASPIRIN ENTERIC COATED 81 MG TABLET.DR. PO SCH (07:41)
[2021-02-03] MEDS: CLOPIDOGREL BISULFATE 75 MG TABLET PO SCH (07:41)
[2021-02-03] MEDS: VANCOMYCIN PER PHARMACY MC PRN ×2 (07:51→09:49)
[2021-02-03 08:00] VITALS: BP 104/66
[2021-02-03 08:36] LABS: CALCIUM 8.2 mg/dL (8.5-10.1); GFR 8.7; POTASSIUM 5.1 mmol/L (3.5-5.1)
[2021-02-03] MEDS: IV DEXTROSE 5% 1,000 ML IV SCH (09:30)
--- NOTE | 2021-02-03 09:51 | NUR ---
Pharmacy Vancomycin Dosing Note S: Consulted to monitor and dose vancomycin started 02/01/21. O: JUSTINA MORALES is a 65 year old F with Osteomyelitis, FOOT INFECTION . Other Antibiotics: ZOSYN LABS: Last BUN: 26 Last Creatinine: 4.1 Creatinine Clearance: HD (TThSa) Last WBC: 14.7 Last Procalcitonin: 0.69 Tmax (past 24 hours): 102 Microbiology: BLOOD: NGTD I/O: 1100/10 Drug Levels: Last Random level: 12.9 on 02/03/21 at 0750 Last dose given 02/01/21 at 1956 Vancomycin Dosing: Dosing Weight: Actual Target Trough: 15-20 A: Based on: random level P: 1. Dose Vancomycin 1000 mg IV One Time today then 500mg after each HD session starting on Tuesday 02/06 2. Follow up Random level in one week if needed 3. Pharmacy will continue to monitor, follow and adjust therapy as needed. Taryn Love RPH, 02/03/21 [id number]
--- NOTE | 2021-02-03 13:23 | PDOC ---
PROGRESS NOTES Date of Service DATE: 02/03/21 TIME: 13:22 Subjective Subjective SEEN IN FOLLOW UP OF ESRD Objective Objective Vital Signs Date Time Temp Pulse Resp B/P (MAP) Pulse Ox O2 Delivery O2 Flow Rate FiO2 02/03/21 12:39 Room Air 02/03/21 08:00 97.6 71 18 104/66 (79) 90 97.6 02/03/21 06:41 2.0 Intake and Output 02/03/21 07:00 Intake Total 1100 ml Output Total 10 ml Balance 1090 ml Intake Oral 0 ml IV Total 1100 ml Output Estimated Blood Loss 10 ml Physical Exam Abdomen: Normal bowel sounds, Soft, No tenderness, No hepatosplenomegaly, No masses Heart: Regular rate, Normal S1, Normal S2, No murmurs, Gallops Extremities: No clubbing, No cyanosis, No edema, Normal pulses, No tenderness/swelling General: Alert, Oriented X3, Cooperative, No acute distress Lungs: Clear to auscultation, Normal air movement Psych/Mental Status: Mental status NL, Mood NL Diagnosis RENAL FAILURE: ESRD Assessment Assessment Problems Medical Problems: (1) End stage kidney disease Status: Acute (2) Leukocytosis Status: Acute (3) Right foot infection Status: Acute Plan Plan of Care DIALYSIS TODAY AND TOLERATED WELL Comment Review of Relevant I have reviewed the following items mimi (where applicable) has been applied. Labs Laboratory Tests Test 02/01/21 17:55 02/01/21 20:40 02/02/21 06:55 02/02/21 08:21 White Blood Count 16.3 x10^3/uL (4.0-11.0) 14.7 x10^3/uL (4.0-11.0) Red Blood Count 2.46 x10^6/uL (3.50-5.40) 2.67 x10^6/uL (3.50-5.40) Hemoglobin 7.5 g/dL (12.0-15.5) 8.3 g/dL (12.0-15.5) Hematocrit 24.2 % (36.0-47.0) 27.0 % (36.0-47.0) Mean Corpuscular Volume 99 fL (79-100) 101 fL (79-100) Mean Corpuscular Hemoglobin 31 pg (25-35) 31 pg (25-35) Mean Corpuscular Hemoglobin Concent 31 g/dL (31-37) 31 g/dL (31-37) Red Cell Distribution Width 18.4 % (11.5-14.5) 18.6 % (11.5-14.5) Platelet Count 214 x10^3/uL (140-400) 218 x10^3/uL (140-400) Neutrophils (%) (Auto) 93 % (31-73) 90 % (31-73) Lymphocytes (%) (Auto) 3 % (24-48) 5 % (24-48) Monocytes (%) (Auto) 3 % (0-9) 4 % (0-9) Eosinophils (%) (Auto) 1 % (0-3) 1 % (0-3) Basophils (%) (Auto) 0 % (0-3) 0 % (0-3) Neutrophils # (Auto) 15.1 x10^3/uL (1.8-7.7) 13.2 x10^3/uL (1.8-7.7) Lymphocytes # (Auto) 0.5 x10^3/uL (1.0-4.8) 0.7 x10^3/uL (1.0-4.8) Monocytes # (Auto) 0.5 x10^3/uL (0.0-1.1) 0.6 x10^3/uL (0.0-1.1) Eosinophils # (Auto) 0.1 x10^3/uL (0.0-0.7) 0.1 x10^3/uL (0.0-0.7) Basophils # (Auto) 0.0 x10^3/uL (0.0-0.2) 0.0 x10^3/uL (0.0-0.2) Segmented Neutrophils % 91 % (35-66) Lymphocytes % 6 % (24-48) Monocytes % 2 % (0-10) Eosinophils % 1 % (0-5) Platelet Estimate Adequate (ADEQUATE) Polychromasia Slight Poikilocytosis Slight Basophilic Stippling Present Anisocytosis Slight Spherocytes Occ Helmet Cells Occ Schistocytes Occ Sodium Level 134 mmol/L (136-145) 138 mmol/L (136-145) Potassium Level 3.9 mmol/L (3.5-5.1) 4.7 mmol/L (3.5-5.1) Chloride Level 98 mmol/L (98-107) 100 mmol/L (98-107) Carbon Dioxide Level 29 mmol/L (21-32) 28 mmol/L (21-32) Anion Gap 7 (6-14) 10 (6-14) Blood Urea Nitrogen 21 mg/dL (7-20) 26 mg/dL (7-20) Creatinine 3.6 mg/dL (0.6-1.0) 4.1 mg/dL (0.6-1.0) Estimated GFR (Cockcroft-Gault) 12.7 10.9 BUN/Creatinine Ratio 6 (6-20) 6 (6-20) Glucose Level 186 mg/dL (70-99) 68 mg/dL (70-99) Lactic Acid Level 1.6 mmol/L (0.4-2.0) Calcium Level 8.0 mg/dL (8.5-10.1) 8.0 mg/dL (8.5-10.1) Total Bilirubin 0.4 mg/dL (0.2-1.0) 0.4 mg/dL (0.2-1.0) Aspartate Amino Transf (AST/SGOT) 167 U/L (15-37) 149 U/L (15-37) Alanine Aminotransferase (ALT/SGPT) 246 U/L (14-59) 253 U/L (14-59) Alkaline Phosphatase 155 U/L (46-116) 163 U/L (46-116) Total Protein 5.4 g/dL (6.4-8.2) 5.1 g/dL (6.4-8.2) Albumin 1.4 g/dL (3.4-5.0) 1.6 g/dL (3.4-5.0) Albumin/Globulin Ratio 0.4 (1.0-1.7) 0.5 (1.0-1.7) Procalcitonin 0.69 ng/mL (0.00-0.10) Coronavirus (COVID-19)(PCR) Not detected (NOT DETECTD) SARS-CoV-2 RNA (RAFAEL) Invalid (Negative) SARS-CoV-2 Antigen (Rapid) Negative (NEGATIVE) Hepatitis B Surface Antigen Nonreactive (Nonreactive) Hepatitis B Core Total Antibody Nonreactive (Nonreactive) Glucose (Fingerstick) 30 mg/dL (70-99) Test 02/02/21 08:43 02/02/21 08:56 02/02/21 09:27 02/02/21 10:39 Glucose (Fingerstick) 50 mg/dL (70-99) 184 mg/dL (70-99) 137 mg/dL (70-99) 106 mg/dL (70-99) Test 02/02/21 11:21 02/02/21 12:26 02/02/21 13:31 02/02/21 14:46 Glucose (Fingerstick) 94 mg/dL (70-99) 65 mg/dL (70-99) 111 mg/dL (70-99) 109 mg/dL (70-99) Test 02/02/21 15:23 02/02/21 17:11 02/02/21 21:26 02/03/21 01:38 Glucose (Fingerstick) 111 mg/dL (70-99) 112 mg/dL (70-99) 224 mg/dL (70-99) 215 mg/dL (70-99) Test 02/03/21 07:26 02/03/21 07:50 02/03/21 11:55 Glucose (Fingerstick) 165 mg/dL (70-99) 105 mg/dL (70-99) Sodium Level 132 mmol/L (136-145) Potassium Level 5.1 mmol/L (3.5-5.1) Chloride Level 98 mmol/L (98-107) Carbon Dioxide Level 25 mmol/L (21-32) Anion Gap 9 (6-14) Blood Urea Nitrogen 37 mg/dL (7-20) Creatinine 5.0 mg/dL (0.6-1.0) Estimated GFR (Cockcroft-Gault) 8.7 Glucose Level 181 mg/dL (70-99) Calcium Level 8.2 mg/dL (8.5-10.1) Random Vancomycin Level 12.9 mcg/mL Laboratory Tests Test 02/02/21 13:31 02/02/21 14:46 02/02/21 15:23 02/02/21 17:11 Glucose (Fingerstick) 111 mg/dL (70-99) 109 mg/dL (70-99) 111 mg/dL (70-99) 112 mg/dL (70-99) Test 02/02/21 21:26 02/03/21 01:38 02/03/21 07:26 02/03/21 07:50 Glucose (Fingerstick) 224 mg/dL (70-99) 215 mg/dL (70-99) 165 mg/dL (70-99) Sodium Level 132 mmol/L (136-145) Potassium Level 5.1 mmol/L (3.5-5.1) Chloride Level 98 mmol/L (98-107) Carbon Dioxide Level 25 mmol/L (21-32) Anion Gap 9 (6-14) Blood Urea Nitrogen 37 mg/dL (7-20) Creatinine 5.0 mg/dL (0.6-1.0) Estimated GFR (Cockcroft-Gault) 8.7 Glucose Level 181 mg/dL (70-99) Calcium Level 8.2 mg/dL (8.5-10.1) Random Vancomycin Level 12.9 mcg/mL Test 02/03/21 11:55 Glucose (Fingerstick) 105 mg/dL (70-99) Microbiology 02/01/21 Blood Culture - Preliminary, Resulted NO GROWTH AFTER 1 DAY Medications Current Medications Piperacillin Sod/ Tazobactam Sod 4.5 gm/Sodium Chloride 100 ml @ 200 mls/hr 1X ONCE IV Last administered on 02/01/21at 18:10; Start 02/01/21 at 17:45; Stop 02/01/21 at 18:14; Status DC Vancomycin HCl (Vanco Per Pharmacy) 1 each 1X ONCE MC Last administered on 02/01/21at 17:45; Start 02/01/21 at 17:45; Stop 02/01/21 at 18:06; Status DC Morphine Sulfate (Morphine Sulfate) 2 mg PRN Q15MIN PRN IV/SQ PAIN GREATER THAN 3/10; Start 02/01/21 at 17:45; Stop 02/02/21 at 17:45; Status DC Vancomycin HCl 250 ml @ 250 mls/hr 1X ONCE IV Last administered on 02/01/21at 19:56; Start 02/01/21 at 18:15; Stop 02/01/21 at 19:14; Status DC Ondansetron HCl (Zofran) 4 mg PRN Q8HRS PRN IVP NAUSEA/VOMITING; Start 02/01/21 at 20:30; Stop 02/02/21 at 20:29; Status DC Fentanyl Citrate (Fentanyl 2ml Vial) 50 mcg PRN Q1HR PRN IVP PAIN Last administered on 02/02/21at 17:42; Start 02/01/21 at 20:30; Stop 02/02/21 at 20:29 ; Status DC Clopidogrel Bisulfate (Plavix) 75 mg DAILYWBKFT PO ; Start 02/02/21 at 08:00 Aspirin (Ecotrin) 81 mg DAILYWBKFT PO ; Start 02/02/21 at 08:00 Piperacillin Sod/ Tazobactam Sod 2.25 gm/Sodium Chloride 50 ml @ 100 mls/hr Q8HRS IV Last administered on 02/03/21at 06:10; Start 02/02/21 at 09:00 Vancomycin HCl (Vanco Per Pharmacy) 1 each PRN DAILY PRN MC SEE COMMENTS Last administered on 02/03/21at 09:49; Start 02/02/21 at 08:30 Dextrose (Dextrose 50%-Water Syringe) 25 gm STK-MED ONCE IV ; Start 02/02/21 at 08:40; Stop 02/02/21 at 08:40; Status DC Dextrose (Dextrose 50%-Water Syringe) 12.5 gm PRN Q15MIN PRN IV SEE COMMENTS L ast administered on 02/02/21at 13:04; Start 02/02/21 at 09:00 Fentanyl Citrate (Fentanyl 2ml Vial) 25 mcg PRN Q5MIN PRN IVP MILD PAIN 1-3; Start 02/02/21 at 10:00; Stop 02/02/21 at 20:00; Status DC Fentanyl Citrate (Fentanyl 2ml Vial) 50 mcg PRN Q5MIN PRN IVP MODERATE PAIN 4- 6; Start 02/02/21 at 10:00; Stop 02/02/21 at 20:00; Status DC Morphine Sulfate (Morphine Sulfate) 1 mg PRN Q10MIN PRN IVP SEVERE PAIN 7-10; Start 02/02/21 at 10:00; Stop 02/02/21 at 20:00; Status DC Ringer's Solution 1,000 ml @ 30 mls/hr Q24H IV ; Start 02/02/21 at 10:00; Stop 02/02/21 at 21:59; Status DC Hydromorphone HCl (Dilaudid) 0.5 mg PRN Q10MIN PRN IVP SEVERE PAIN 7-10, 2nd CHOICE; Start 02/02/21 at 10:00; Stop 02/03/21 at 09:59; Status DC Prochlorperazine Edisylate (Compazine) 5 mg PACU PRN PRN IVP NAUSEA, MRX1; Start 02/02/21 at 10:00; Stop 02/02/21 at 20:00; Status DC Fentanyl Citrate (Fentanyl 2ml Vial) 25 mcg PRN Q5MIN PRN IVP MILD PAIN 1-3; Start 02/02/21 at 10:00; Stop 02/03/21 at 09:59; Status Cancel Fentanyl Citrate (Fentanyl 2ml Vial) 50 mcg PRN Q5MIN PRN IVP MODERATE PAIN 4- 6; Start 02/02/21 at 10:00; Stop 02/03/21 at 09:59; Status UNV Morphine Sulfate (Morphine Sulfate) 1 mg PRN Q10MIN PRN IVP SEVERE PAIN 7-10; Start 02/02/21 at 10:00; Stop 02/03/21 at 09:59; Status UNV Ringer's Solution 1,000 ml @ 30 mls/hr Q24H IV ; Start 02/02/21 at 10:00; Stop 02/02/21 at 21:59; Status UNV Hydromorphone HCl (Dilaudid) 0.5 mg PRN Q10MIN PRN IVP SEVERE PAIN 7-10, 2nd CHOICE; Start 02/02/21 at 10:00; Stop 02/03/21 at 09:59; Status UNV Prochlorperazine Edisylate (Compazine) 5 mg PACU PRN PRN IVP NAUSEA, MRX1; Start 02/02/21 at 10:00; Stop 02/03/21 at 09:59; Status UNV Epoetin Galileo-epbx (RETACRIT for ESRD PTS) 10,000 unit MoWeFr@2100 SQ Last administered on 02/02/21at 21:45; Start 02/02/21 at 21:00 Vancomycin HCl (Vancomycin Random Level) 1 each 1X ONCE MC ; Start 02/03/21 at 05:00; Stop 02/03/21 at 05:01; Status DC Dextrose 1,000 ml @ 50 mls/hr Q20H IV Last administered on 02/02/21at 13:05; Start 02/02/21 at 13:30 Propofol (Diprivan) 200 mg STK-MED ONCE IV ; Start 02/02/21 at 13:39; Stop 02/02/21 at 13:39; Status DC Lidocaine HCl (Lidocaine Pf 2% Vial) 5 ml STK-MED ONCE .ROUTE ; Start 02/02/21 at 13:39; Stop 02/02/21 at 13:39; Status DC Fentanyl Citrate (Fentanyl 2ml Vial) 100 mcg STK-MED ONCE .ROUTE ; Start 02/02/21 at 13:39; Stop 02/02/21 at 13:39; Status DC Phenylephrine HCl (PHENYLEPHRINE in 0.9% NACL PF) 1 mg STK-MED ONCE IV ; Start 02/02/21 at 13:40; Stop 02/02/21 at 13:40; Status DC Sodium Chloride 1,000 ml @ 0 mls/hr Q0M IV Last administered on 02/02/21at 15:57; Start 02/02/21 at 14:00 Ephedrine Sulfate (ePHEDrine PF IN SALINE SYRINGE) 50 mg STK-MED ONCE IV ; Start 02/02/21 at 15:00; Stop 02/02/21 at 15:00; Status DC Ondansetron HCl (Zofran) 4 mg STK-MED ONCE .ROUTE ; Start 02/02/21 at 15:09; Stop 02/02/21 at 15:09; Status DC Dexamethasone Sodium Phosphate (Decadron) 4 mg STK-MED ONCE .ROUTE ; Start 02/02/21 at 15:09; Stop 02/02/21 at 15:09; Status DC Desflurane (Suprane) 30 ml STK-MED ONCE IH ; Start 02/02/21 at 15:09; Stop 02/02/21 at 15:10; Status DC Sevoflurane (Ultane) 30 ml STK-MED ONCE IH ; Start 02/02/21 at 15:09; Stop 02/02/21 at 15:10; Status DC Sodium Chloride 1,000 ml @ 750 mls/hr 1X ONCE IV Last administered on 02/02/21at 15:30; Start 02/02/21 at 15:30; Stop 02/02/21 at 16:49; Status DC Fentanyl Citrate (Fentanyl 2ml Vial) 50 mcg PRN Q1HR PRN IVP SEVERE PAIN 7-10 Last administered on 02/03/21at 12:10; Start 02/02/21 at 21:45 Sodium Chloride 1,000 ml @ 1,000 mls/hr Q1H PRN IV hypotension; Start 02/03/21 at 07:30; Stop 02/03/21 at 13:29 Sodium Chloride 1,000 ml @ 400 mls/hr Q2H30M PRN IV PATENCY; Start 02/03/21 at 07:30; Stop 02/03/21 at 19:29 Info (PHARMACY MONITORING -- do not chart) 1 each PRN DAILY PRN MC SEE COMMENTS; Start 02/03/21 at 07:30 Vancomycin HCl 1 gm/Sodium Chloride 250 ml @ 250 mls/hr 1X ONCE IV ; Start 02/03/21 at 16:00; Stop 02/03/21 at 16:59 Vancomycin HCl 500 mg/Sodium Chloride 100 ml @ 100 mls/hr QTUTHSA IV ; Start 02/06/21 at 16:00 Acetaminophen (Tylenol) 650 mg PRN Q6HRS PRN PO pain or fever; Start 02/03/21 at 13:30; Status UNV Allopurinol (Zyloprim) 100 mg DAILY PO ; Start 02/04/21 at 09:00; Status UNV Anastrozole (Arimidex) 1 mg DAILY PO ; Start 02/04/21 at 09:00; Status UNV Aspirin (Ecotrin) 81 mg DAILY PO ; Start 02/04/21 at 09:00; Status UNV Atorvastatin Calcium (Lipitor) 80 mg HS PO ; Start 02/03/21 at 21:00; Status UNV Calcium Carbonate/ Glycine (Oscal) 750 mg BID PO ; Start 02/03/21 at 21:00; Status UNV Clopidogrel Bisulfate (Plavix) 75 mg DAILY PO ; Start 02/04/21 at 09:00; Status UNV Ferrous Sulfate (Feosol) 325 mg DAILYWBKFT PO ; Start 02/04/21 at 08:00; Status UNV Furosemide (Lasix) 80 mg DAILY PO ; Start 02/04/21 at 09:00; Status UNV Insulin Human Regular (HumuLIN R VIAL) 100 unit TIDAC SQ ; Start 02/03/21 at 16:30; Status UNV Methocarbamol (Robaxin) 500 mg PRN Q8HRS PO ; Start 02/03/21 at 13:30; Status UNV Midodrine (Proamatine) 2.5 mg TID PO ; Start 02/03/21 at 14:00; Status UNV Pantoprazole Sodium (Protonix) 40 mg DAILYAC PO ; Start 02/04/21 at 07:30; Status UNV Polyethylene Glycol (miraLAX PACKET) 17 gm DAILY PRN PO CONSTIPATION; Start 02/03/21 at 13:30; Status UNV Pramipexole Dihydrochloride (miraPEX) 0.5 mg DAILY PO ; Start 02/04/21 at 09:00; Status UNV Pramipexole Dihydrochloride (miraPEX) 0.25 mg DAILY PO ; Start 02/04/21 at 09:00; Status UNV Senna/Docusate Sodium (Senna Plus) 1 tab DAILY PO ; Start 02/04/21 at 09:00; Status UNV Sodium Bicarbonate (Sodium Bicarbonate) 650 mg TID PO ; Start 02/03/21 at 14:00; Status UNV Non-Formulary Medication (Amlodipine Besylate/ Benazepril (Amlodipine-Benazepril 5-20 Mg)) 1 cap DAILY PO ; Start 02/04/21 at 09:00; Status UNV Non-Formulary Medication (Insulin Degludec (Tresiba Flextouch U-200)) 10 unit HS SQ ; Start 02/03/21 at 21:00; Status UNV Non-Formulary Medication (Levothyroxine Sodium ) 200 mcg DAILYAC PO ; Start 02/04/21 at 07:30; Status UNV Non-Formulary Medication (Omeprazole Magnesium (Prilosec Otc)) 1 tab DAILY PO ; Start 02/04/21 at 09:00; Status UNV Non-Formulary Medication (Ondansetron Hcl (Zofran)) 1 tab Q6HRS PO ; Start 02/03/21 at 18:00; Status UNV Non-Formulary Medication (Oxycodone Hcl ) 5 mg PRN Q6HRS PRN PO PAIN; Start 02/03/21 at 13:30; Status UNV Non-Formulary Medication (Pregabalin (Lyrica)) 150 mg Q3DAYS PO ; Start 02/06/21 at 09:00; Status UNV Non-Formulary Medication (Travoprost (Travatan Z)) 1 drop DAILY EACHEYE ; Start 02/04/21 at 09:00; Status UNV Active Scripts Active Feosol (Ferrous Sulfate) 325 Mg Tablet 325 Mg PO DAILYWBKFT 30 Days Reported Lasix (Furosemide) 80 Mg Tablet 1 Tab PO DAILY 30 Days Humalog (Insulin Lispro) 100 Unit/1 Ml Vial 100 Unit SQ TIDAC Travatan Z (Travoprost) 5 Ml Drops 1 Drop EACHEYE DAILY Zofran (Ondansetron Hcl) 4 Mg Tablet 1 Tab PO Q6HRS Senna-Docusate Sodium Tablet (Sennosides/Docusate Sodium) 1 Each Tablet 1 Tab PO DAILY 20 Days Renaplex-D Tablet (B,C/Folic/Zinc/Selenometh/D3/E) 1 Each Tablet 1 Each PO DAILY Clopidogrel (Clopidogrel Bisulfate) 75 Mg Tablet 1 Tab PO DAILY Protonix (Pantoprazole Sodium) 40 Mg Tablet.dr 40 Mg PO DAILYAC Oxycodone Hcl 5 Mg Capsule 5 Mg PO PRN Q6HRS PRN Mirapex (Pramipexole Di-Hcl) 0.25 Mg Tablet 0.5 Mg PO DAILY Miralax (Polyethylene Glycol 3350) 17 Gm Powd.pack 1 Packet PO DAILY PRN 2 Days dissolve in water Midodrine Hcl 2.5 Mg Tablet 2.5 Mg PO TID Methocarbamol 500 Mg Tablet 500 Mg PO PRN Q8HRS D3-50 (Cholecalciferol (Vitamin D3)) 50,000 Unit Capsule 1,000 Unit PO DAILY Calcium Carbonate 500 Mg Tablet 750 Mg PO BID Calcium Acetate 667 Mg Tablet 2 Tab PO DAILY 30 Days Arimidex (Anastrozole) 1 Mg Tablet 1 Tab PO DAILY 30 Days Allopurinol 100 Mg Tablet 1 Tab PO DAILY Acetaminophen 325 Mg Tablet 2 Tab PO PRN Q6HRS PRN 30 Days Prilosec Otc (Omeprazole Magnesium) 20 Mg Tablet.dr 1 Tab PO DAILY Calcium 500 + D Tablet (Calcium Carbonate/Vitamin D3) 1 Each Tablet 1 Each PO DAILY Levothyroxine Sodium 200 Mcg Tablet 200 Mcg PO DAILYAC Tresiba Flextouch U-200 (Insulin Degludec) 200 Unit/1 Ml Insuln.pen 10 Unit SQ HS Lyrica (Pregabalin) 150 Mg Capsule 150 Mg PO Q3DAYS 30 Days Amlodipine-Benazepril 5-20 Mg (Amlodipine Besylate/Benazepril) 1 Each Capsule 1 Cap PO DAILY Sodium Bicarbonate 650 Mg Tablet 650 Mg PO TID Mirapex (Pramipexole Di-Hcl) 0.25 Mg Tablet 1 Tab PO DAILY Aspir 81 (Aspirin) 81 Mg Tablet.dr 81 Mg PO Atorvastatin Calcium 40 Mg Tablet 80 Mg PO HS Vitals/I & O Vital Sign - Last 24 Hours 02/02/21 02/02/21 02/02/21 02/02/21 13:24 13:42 15:19 15:19 Temp 102 99.1 102.0 99.1 Pulse 77 74 Resp 20 20 B/P (MAP) 95/46 84/32 Pulse Ox 95 93 O2 Delivery Room Air Room Air Mask O2 Flow Rate 10 4 02/02/21 02/02/21 02/02/21 02/02/21 15:34 15:59 16:15 16:31 Temp 99.1 99.1 Pulse 74 65 63 73 Resp 20 20 20 20 B/P (MAP) 80/36 80/50 83/53 81/51 Pulse Ox 93 95 100 100 O2 Delivery Simple Mask Simple Mask Nasal Cannula Nasal Cannula O2 Flow Rate 10 10 2 3 02/02/21 02/02/21 02/02/21 02/02/21 16:37 16:46 17:42 20:00 Temp 98.5 98.5 Pulse 65 Resp 22 B/P (MAP) 85/55 Pulse Ox 98 3 O2 Delivery Mask Nasal Cannula Nasal Cannula Nasal Cannula O2 Flow Rate 10 2 2.0 02/02/21 02/02/21 02/02/21 02/02/21 20:30 22:08 22:38 23:00 Temp 99.2 97.9 99.2 97.9 Pulse 62 61 Resp 18 18 B/P (MAP) 97/44 (61) 133/46 (75) Pulse Ox 100 100 95 O2 Delivery Nasal Cannula Room Air Room Air Nasal Cannula O2 Flow Rate 2.0 2.0 02/02/21 02/02/21 02/03/21 02/03/21 23:10 23:40 01:28 03:00 Temp 98.0 98.0 Pulse 64 Resp 18 B/P (MAP) 111/55 (73) Pulse Ox 94 O2 Delivery Room Air Nasal Cannula Nasal Cannula Room Air O2 Flow Rate 2.0 2.0 02/03/21 02/03/21 02/03/21 02/03/21 04:12 06:11 06:41 08:00 Temp 97.6 97.6 Pulse 71 Resp 18 B/P (MAP) 104/66 (79) Pulse Ox 90 O2 Delivery Room Air Nasal Cannula Nasal Cannula Room Air O2 Flow Rate 2.0 2.0 02/03/21 02/03/21 08:50 12:39 O2 Delivery Room Air Room Air Intake and Output 02/02/21 02/02/21 02/03/21 15:00 23:00 07:00 Intake Total 50 ml 1050 ml 0 ml Output Total 10 ml Balance 50 ml 1040 ml 0 ml Justifications for Admission Other Justification EDER ARANGO MD Feb 03, 2021 13:23
[2021-02-03] MEDS ORDERED: ACETAMINOPHEN 325 MG TABLET. PO PRN (13:30)
[2021-02-03] MEDS ORDERED: POLYETHYLENE GLYCOL 3350 17 GM PACKET. PO PRN (13:30)
[2021-02-03] MEDS ORDERED: SENNOSIDES 8.6 MG TABLET PO PRN (13:30)
[2021-02-03] MEDS ORDERED: METHOCARBAMOL 500 MG TABLET PO PRN (13:30)
--- NOTE | 2021-02-03 13:37 | PDOC ---
GENERAL General: Patient examined chart reviewed today's hospital day 3 for this patient with extensive underlying multimorbidity including type 2 diabetes with A1c at goal, end-stage renal disease on peritoneal dialysis for the last month, severe peripheral vascular disease for which she had a recent stent placed and then was at [facility] when continued to clinically decline sent back here for evaluation. She is postop day 1 from a right fifth toe amputation for gangrenous foot ulcer. She also had a gangrenous ulcer debrided from her right heel. She is without new complaint today tells me that her pain is fairly well controlled. She has an extensive med list at home that has not been reordered we will do that now. We will hold the high-dose insulin that she has historically taken at mealtime and is to use a sliding scale as her sugar levels are quite low of her usual diet. She does tell me that she does not want to return to [facility] does not feel that she was getting much he needed to continue her healing. She had a peripheral vascular stent placed in mid December that led to that admission. We appreciate subspecialty support. Continue current management otherwise. Time spent today is 30 minutes with greater than 50% in counseling and coordination of care most of which in discussion with patient. Problems: (1) PAD (peripheral artery disease) (2) Diabetes mellitus type 2 with complications (3) Peripheral vascular disease (4) Gangrenous toe (5) End stage kidney disease VITAL SIGNS Vital Signs/I&O: Vital Signs Date Time Temp Pulse Resp B/P (MAP) Pulse Ox O2 Delivery O2 Flow Rate FiO2 02/03/21 12:39 Room Air 02/03/21 08:00 97.6 71 18 104/66 (79) 90 97.6 02/03/21 06:41 2.0 I & O 02/02/21 02/02/21 02/03/21 15:00 23:00 07:00 Intake Total 50 ml 1050 ml 0 ml Output Total 10 ml Balance 50 ml 1040 ml 0 ml In general the patient is pleasant alert and oriented x3 no acute distress resting comfortably in bed HEENT exam is unremarkable for acute abnormality Chest bilateral equal air entry though diminished throughout no crackles or wheezes are noted Heart S1-S2 normal tachycardic no murmurs or gallops are noted Abdomen notable for her peritoneal dialysis catheter intact no drainage, soft nontender nondistended no masses organomegaly noted Extremity exam is notable for multiple toe amputations. Her right foot is bandaged and dressings are dry clean and intact ALLERGIES Allergies: Allergies Coded Allergies Type Severity Reaction Last Updated Verified pregabalin Allergy Intermediate 02/01/21 Yes MEDS Medications: Current Medications Medications (Trade) Dose Ordered Sig/Michelle Start Time Stop Time Status Last Admin Dose Admin Aspirin (Ecotrin) 81 mg DAILYWBKFT 02/02/21 08:00 Clopidogrel Bisulfate (Plavix) 75 mg DAILYWBKFT 02/02/21 08:00 Desflurane (Suprane) 30 ml STK-MED ONCE 02/02/21 15:09 02/02/21 15:10 DC Dexamethasone Sodium Phosphate (Decadron) 4 mg STK-MED ONCE 02/02/21 15:09 02/02/21 15:09 DC Dextrose 1,000 ml @ 50 mls/hr Q20H 02/02/21 13:30 02/02/21 13:05 Dextrose (Dextrose 50%-Water Syringe) 12.5 gm PRN Q15MIN PRN 02/02/21 09:00 02/02/21 13:04 Ephedrine Sulfate (ePHEDrine PF IN SALINE SYRINGE) 50 mg STK-MED ONCE 02/02/21 15:00 02/02/21 15:00 DC Epoetin Galileo-epbx (RETACRIT for ESRD PTS) 10,000 unit MoWeFr@2100 02/02/21 21:00 02/02/21 21:45 Fentanyl Citrate (Fentanyl 2ml Vial) 50 mcg PRN Q1HR PRN 02/02/21 21:45 02/03/21 12:10 Hydromorphone HCl (Dilaudid) 0.5 mg PRN Q10MIN PRN 02/02/21 10:00 02/03/21 09:59 UNV Info (PHARMACY MONITORING -- do not chart) 1 each PRN DAILY PRN 02/03/21 07:30 Lidocaine HCl (Lidocaine Pf 2% Vial) 5 ml STK-MED ONCE 02/02/21 13:39 02/02/21 13:39 DC Morphine Sulfate (Morphine Sulfate) 1 mg PRN Q10MIN PRN 02/02/21 10:00 02/03/21 09:59 UNV Ondansetron HCl (Zofran) 4 mg STK-MED ONCE 02/02/21 15:09 02/02/21 15:09 DC Phenylephrine HCl (PHENYLEPHRINE in 0.9% NACL PF) 1 mg STK-MED ONCE 02/02/21 13:40 02/02/21 13:40 DC Piperacillin Sod/ Tazobactam Sod 2.25 gm/Sodium Chloride 50 ml @ 100 mls/hr Q8HRS 02/02/21 09:00 02/03/21 06:10 Piperacillin Sod/ Tazobactam Sod 4.5 gm/Sodium Chloride 100 ml @ 200 mls/hr 1X ONCE 02/01/21 17:45 02/01/21 18:14 DC 02/01/21 18:10 Prochlorperazine Edisylate (Compazine) 5 mg PACU PRN PRN 02/02/21 10:00 02/03/21 09:59 UNV Propofol (Diprivan) 200 mg STK-MED ONCE 02/02/21 13:39 02/02/21 13:39 DC Ringer's Solution 1,000 ml @ 30 mls/hr Q24H 02/02/21 10:00 02/02/21 21:59 UNV Sevoflurane (Ultane) 30 ml STK-MED ONCE 02/02/21 15:09 02/02/21 15:10 DC Sodium Chloride 1,000 ml @ 400 mls/hr Q2H30M PRN 02/03/21 07:30 02/03/21 19:29 Vancomycin HCl (Vanco Per Pharmacy) 1 each PRN DAILY PRN 02/02/21 08:30 02/03/21 09:49 Vancomycin HCl (Vancomycin Random Level) 1 each 1X ONCE 02/03/21 05:00 02/03/21 05:01 DC Vancomycin HCl 500 mg/Sodium Chloride 100 ml @ 100 mls/hr QTUTHSA 02/06/21 16:00 Vancomycin HCl 1 gm/Sodium Chloride 250 ml @ 250 mls/hr 1X ONCE 02/03/21 16:00 02/03/21 16:59 Current Medications Medications (Trade) Dose Ordered Sig/Michelle Route PRN Reason Start Time Stop Time Status Last Admin Dose Admin Epoetin Galileo-epbx (RETACRIT for ESRD PTS) 10,000 unit MoWeFr@2100 SQ 02/02/21 21:00 02/02/21 21:45 Sodium Chloride 1,000 ml @ 0 mls/hr Q0M IV 02/02/21 14:00 02/02/21 15:57 Sodium Chloride 1,000 ml @ 750 mls/hr 1X ONCE IV 02/02/21 15:30 02/02/21 16:49 DC 02/02/21 15:30 Fentanyl Citrate (Fentanyl 2ml Vial) 50 mcg PRN Q1HR PRN IVP SEVERE PAIN 7-10 02/02/21 21:45 02/03/21 12:10 LAB Lab: Laboratory Tests Test 02/02/21 14:46 02/02/21 15:23 02/02/21 17:11 02/02/21 21:26 Glucose (Fingerstick) 109 mg/dL (70-99) H 111 mg/dL (70-99) H 112 mg/dL (70-99) H 224 mg/dL (70-99) H Test 02/03/21 01:38 02/03/21 07:26 02/03/21 07:50 02/03/21 11:55 Glucose (Fingerstick) 215 mg/dL (70-99) H 165 mg/dL (70-99) H 105 mg/dL (70-99) H Sodium Level 132 mmol/L (136-145) L Potassium Level 5.1 mmol/L (3.5-5.1) Chloride Level 98 mmol/L (98-107) Carbon Dioxide Level 25 mmol/L (21-32) Anion Gap 9 (6-14) Blood Urea Nitrogen 37 mg/dL (7-20) H Creatinine 5.0 mg/dL (0.6-1.0) H Estimated GFR (Cockcroft-Gault) 8.7 Glucose Level 181 mg/dL (70-99) H Calcium Level 8.2 mg/dL (8.5-10.1) L Random Vancomycin Level 12.9 mcg/mL Laboratory Tests 02/03/21 07:50 ASSESSMENT & PLAN A&P Plan as noted above This note was created using [employer] and may have omissions and/or errors due to the nature of real-time voice blasting [employer]er. Justifications for Admission Other Justification DESTINY BOWER MD Feb 03, 2021 13:37
[2021-02-03] MEDS: SENNOSIDES/DOCUSATE 8.6/50MG TABLET. PO SCH (14:00)
[2021-02-03] MEDS ORDERED: MIDODRINE 2.5 MG TABLET PO SCH (14:00)
[2021-02-03] MEDS: LISINOPRIL 20 MG TABLET PO SCH (14:00)
[2021-02-03] MEDS ORDERED: oxyCODONE IR 5 MG TABLET PO PRN (14:15)
[2021-02-03 15:00] VITALS: BP 87/45
[2021-02-03] MEDS ORDERED: VANCOMYCIN 1 GM in IV NORMAL SALINE 250ML 250 ML IV ONE (16:00)
[2021-02-03] MEDS: PRAMIPEXOLE 0.25 MG TABLET. PO SCH (16:02)
[2021-02-03] MEDS: FERROUS SULFATE 325 MG TABLET. PO SCH (16:03)
[2021-02-03] MEDS: MIDODRINE 2.5 MG TABLET PO SCH (16:04)
[2021-02-03] MEDS: PANTOPRAZOLE 40 MG TABLET.DR. PO SCH (16:05)
[2021-02-03] MEDS: SODIUM BICARBONATE 650 MG TABLET. PO SCH ×2 (16:05→21:55)
[2021-02-03] MEDS: FUROSEMIDE 80 MG TABLET. PO SCH (16:07)
[2021-02-03] MEDS: LEVOTHYROXINE 100 MCG TABLET PO SCH (16:07)
[2021-02-03] MEDS: ALLOPURINOL 100 MG TABLET. PO SCH (16:07)
[2021-02-03] MEDS: ANASTROZOLE 1 MG TABLET PO SCH (16:10)
[2021-02-03] MEDS ORDERED: INSULIN REGULAR 100 UNIT/ML 3ML VIAL. SQ SCH (16:30)
[2021-02-03 19:00] VITALS: BP 83/26
[2021-02-03] MEDS: CALCIUM CARBONATE 500 MG TABLET PO SCH (20:07)
[2021-02-03] MEDS: ATORVASTATIN CALCIUM 40 MG TABLET. PO SCH (21:54)
[2021-02-03] MEDS: LATANOPROST 0.005% OPHTH SOLUTION 2.5ML BOTTLE. OU SCH (21:55)
[2021-02-03] MEDS: INSULIN GLARGINE SYRINGE. SQ SCH (22:39)
[2021-02-03 23:00] VITALS: BP 81/48
[2021-02-04 03:00] VITALS: BP 97/48
[2021-02-04] MEDS: fentaNYL PF VIAL 100 MCG/2 ML VIAL IVP PRN ×2 (05:06→09:27)
[2021-02-04] MEDS: IV DEXTROSE 5% 1,000 ML IV SCH (05:30)
[2021-02-04] MEDS: oxyCODONE IR 5 MG TABLET PO PRN ×2 (06:23→21:14)
[2021-02-04] MEDS: LEVOTHYROXINE 100 MCG TABLET PO SCH (06:35)
[2021-02-04] MEDS: PIPERACILLIN/TAZOBACTAM 2.25 GM in IV NORMAL SALINE 50ML 50 ML IV SCH ×3 (06:35→22:23)
[2021-02-04 07:00] VITALS: BP 110/39
[2021-02-04] MEDS: PRAMIPEXOLE 0.25 MG TABLET. PO SCH (08:03)
[2021-02-04] MEDS: ALLOPURINOL 100 MG TABLET. PO SCH (08:03)
[2021-02-04] MEDS: FERROUS SULFATE 325 MG TABLET. PO SCH (08:03)
[2021-02-04] MEDS: PANTOPRAZOLE 40 MG TABLET.DR. PO SCH (08:03)
[2021-02-04] MEDS: ASPIRIN ENTERIC COATED 81 MG TABLET.DR. PO SCH (08:03)
[2021-02-04] MEDS: MIDODRINE 2.5 MG TABLET PO SCH ×3 (08:04→18:00)
[2021-02-04] MEDS: LISINOPRIL 20 MG TABLET PO SCH (08:04)
[2021-02-04 08:05] LABS: BASO % 0 % (0-3); EOS # 0.1 x10^3/uL (0.0-0.7); EOS % 1 % (0-3); HEMATOCRIT 26.2 % (36.0-47.0); HEMOGLOBIN 8.2 g/dL (12.0-15.5); LYMPH # 0.6 x10^3/uL (1.0-4.8); LYMPH % 4 % (24-48); MEAN CORPUSCULAR HEMOGLOBIN 31 pg (25-35); MEAN CORPUSCULAR HGB CONC 31 g/dL (31-37); MEAN CORPUSCULAR VOLUME 100 fL (79-100); MONO # 0.6 x10^3/uL (0.0-1.1); MONO % 4 % (0-9); NEUT # 14.3 x10^3/uL (1.8-7.7); NEUT % 92 % (31-73); PLATELET COUNT 212 x10^3/uL (140-400); RED BLOOD COUNT 2.61 x10^6/uL (3.50-5.40); RED CELL DISTRIBUTION WIDTH 18.6 % (11.5-14.5); WHITE BLOOD COUNT 15.6 x10^3/uL (4.0-11.0)
[2021-02-04] MEDS: FUROSEMIDE 80 MG TABLET. PO SCH (08:05)
[2021-02-04] MEDS: SODIUM BICARBONATE 650 MG TABLET. PO SCH ×3 (08:05→21:14)
[2021-02-04] MEDS: CALCIUM CARBONATE 500 MG TABLET PO SCH ×2 (08:05→14:04)
[2021-02-04] MEDS: CLOPIDOGREL BISULFATE 75 MG TABLET PO SCH (08:05)
[2021-02-04] MEDS: SENNOSIDES/DOCUSATE 8.6/50MG TABLET. PO SCH (08:05)
[2021-02-04] MEDS: ANASTROZOLE 1 MG TABLET PO SCH (08:11)
[2021-02-04 08:30] LABS: ALBUMIN 1.4 g/dL (3.4-5.0); TOTAL PROTEIN 5.4 g/dL (6.4-8.2)
[2021-02-04 08:31] LABS: ALBUMIN/GLOBULIN RATIO 0.4 (1.0-1.7); CREATININE 4.1 mg/dL (0.6-1.0); GFR 10.9; TOTAL BILIRUBIN 0.4 mg/dL (0.2-1.0)
--- NOTE | 2021-02-04 08:43 | PDOC ---
Infectious Disease Note Subjective: Subjective Patient without complaint Post operative pain is under control Vital Signs: Vital Signs Vital Signs Date Time Temp Pulse Resp B/P (MAP) Pulse Ox O2 Delivery O2 Flow Rate FiO2 02/04/21 08:04 52 110/39 02/04/21 07:00 97.2 18 90 Room Air 97.2 02/03/21 23:18 2.0 Physical Exam: PHYSICAL EXAM GENERAL: Alert and oriented x 3 female, lying in bed comfortably, in no acute distress. HEENT: Normocephalic, atraumatic and anicteric. No thrush. Oral mucosa moist. NECK: Supple. LUNGS: Clear bilaterally. No wheezing. HEART: S1, S2. No murmurs. ABDOMEN: Soft, nontender, and nondistended. EXTREMITIES: Right lower extremity dressing in place intact not taken down Left foot no acute change BACK: Reveals normal curvature. No CVA tenderness. NEUROLOGIC: Alert and oriented x 3, grossly nonfocal. PSYCHIATRIC: Calm and cooperative. Medications: Inpatient Meds: Medications reviewed. Labs: Lab Laboratory Tests Test 02/03/21 11:55 02/03/21 15:53 02/03/21 20:59 02/04/21 07:30 Glucose (Fingerstick) 105 mg/dL (70-99) 176 mg/dL (70-99) 214 mg/dL (70-99) White Blood Count 15.6 x10^3/uL (4.0-11.0) Red Blood Count 2.61 x10^6/uL (3.50-5.40) Hemoglobin 8.2 g/dL (12.0-15.5) Hematocrit 26.2 % (36.0-47.0) Mean Corpuscular Volume 100 fL (79-100) Mean Corpuscular Hemoglobin 31 pg (25-35) Mean Corpuscular Hemoglobin Concent 31 g/dL (31-37) Red Cell Distribution Width 18.6 % (11.5-14.5) Platelet Count 212 x10^3/uL (140-400) Neutrophils (%) (Auto) 92 % (31-73) Lymphocytes (%) (Auto) 4 % (24-48) Monocytes (%) (Auto) 4 % (0-9) Eosinophils (%) (Auto) 1 % (0-3) Basophils (%) (Auto) 0 % (0-3) Neutrophils # (Auto) 14.3 x10^3/uL (1.8-7.7) Lymphocytes # (Auto) 0.6 x10^3/uL (1.0-4.8) Monocytes # (Auto) 0.6 x10^3/uL (0.0-1.1) Eosinophils # (Auto) 0.1 x10^3/uL (0.0-0.7) Basophils # (Auto) 0.0 x10^3/uL (0.0-0.2) Sodium Level 136 mmol/L (136-145) Potassium Level 4.0 mmol/L (3.5-5.1) Chloride Level 100 mmol/L (98-107) Carbon Dioxide Level 25 mmol/L (21-32) Anion Gap 11 (6-14) Blood Urea Nitrogen 27 mg/dL (7-20) Creatinine 4.1 mg/dL (0.6-1.0) Estimated GFR (Cockcroft-Gault) 10.9 BUN/Creatinine Ratio 7 (6-20) Glucose Level 106 mg/dL (70-99) Calcium Level 8.0 mg/dL (8.5-10.1) Total Bilirubin 0.4 mg/dL (0.2-1.0) Aspartate Amino Transf (AST/SGOT) 67 U/L (15-37) Alanine Aminotransferase (ALT/SGPT) 201 U/L (14-59) Alkaline Phosphatase 175 U/L (46-116) Total Protein 5.4 g/dL (6.4-8.2) Albumin 1.4 g/dL (3.4-5.0) Albumin/Globulin Ratio 0.4 (1.0-1.7) Test 02/04/21 08:13 Glucose (Fingerstick) 84 mg/dL (70-99) Objective: Assessment: 1. Right fifth toe gangrene with right lateral and right heel wounds. Ray amputation of the right fifth toe including the metatarsal head I and D of the right heel February 02, 2021 Cultures not available 2. Peripheral vascular disease, status post angioplasty at on 01/16/2021. 3. End-stage renal disease, on hemodialysis. 4. Diabetes with neuropathy. 5. Protein-calorie malnutrition. 6. Abnormal LFTs. 7. Anemia. Plan: Plan of Care Continue IV vancomycin and Zosyn. Wound care as directed Monitor labs and cultures continue supportive care JACQUIE AGUILAR MD Feb 04, 2021 08:43
[2021-02-04] MEDS ORDERED: BENAZEPRIL PO SCH (09:00)
[2021-02-04] MEDS ORDERED: NON FORMULARY ITEM (Omeprazole Magnesium (Prilosec Otc) 1 TAB) PO SCH (09:00)
[2021-02-04] MEDS ORDERED: AMLODIPINE BESYLATE PO SCH (09:00)
[2021-02-04] MEDS ORDERED: PRAMIPEXOLE 0.25 MG TABLET. PO SCH (09:00)
[2021-02-04] MEDS ORDERED: [UNRECOGNIZED DRUG - OTHER] PO SCH (09:00)
[2021-02-04 11:00] VITALS: BP 95/35
--- NOTE | 2021-02-04 14:59 | PDOC ---
SURGICAL PROGRESS NOTE DATE: 02/04/21 TIME: 14:55 Subjective Patient was seen and examined at the bedside and is doing well. Vital Signs Vital Signs Date Time Temp Pulse Resp B/P (MAP) Pulse Ox O2 Delivery O2 Flow Rate FiO2 02/04/21 13:00 69 95/35 02/04/21 11:00 97.3 18 91 Room Air 97.3 02/03/21 23:18 2.0 I&O Intake and Output 02/04/21 07:00 Intake Total 120 ml Output Total 1 ml Balance 119 ml Intake Oral 120 ml Output Urine/Stool Mix 1 ml # Voids 1 # Bowel Movements 1 General: Alert, Oriented X3, Cooperative Extremities: Other (Toe amputation site is clean, dry, and intact, the heel wound debridement site is clean and intact, there is no cellulitis, purulent drainage, or malodor) Labs Laboratory Tests Test 02/02/21 15:23 02/02/21 17:11 02/02/21 21:26 02/03/21 01:38 Glucose (Fingerstick) 111 mg/dL (70-99) 112 mg/dL (70-99) 224 mg/dL (70-99) 215 mg/dL (70-99) Test 02/03/21 07:26 02/03/21 07:50 02/03/21 11:55 02/03/21 15:53 Glucose (Fingerstick) 165 mg/dL (70-99) 105 mg/dL (70-99) 176 mg/dL (70-99) Sodium Level 132 mmol/L (136-145) Potassium Level 5.1 mmol/L (3.5-5.1) Chloride Level 98 mmol/L (98-107) Carbon Dioxide Level 25 mmol/L (21-32) Anion Gap 9 (6-14) Blood Urea Nitrogen 37 mg/dL (7-20) Creatinine 5.0 mg/dL (0.6-1.0) Estimated GFR (Cockcroft-Gault) 8.7 Glucose Level 181 mg/dL (70-99) Calcium Level 8.2 mg/dL (8.5-10.1) Random Vancomycin Level 12.9 mcg/mL Test 02/03/21 20:59 02/04/21 07:30 02/04/21 08:13 Glucose (Fingerstick) 214 mg/dL (70-99) 84 mg/dL (70-99) White Blood Count 15.6 x10^3/uL (4.0-11.0) Red Blood Count 2.61 x10^6/uL (3.50-5.40) Hemoglobin 8.2 g/dL (12.0-15.5) Hematocrit 26.2 % (36.0-47.0) Mean Corpuscular Volume 100 fL (79-100) Mean Corpuscular Hemoglobin 31 pg (25-35) Mean Corpuscular Hemoglobin Concent 31 g/dL (31-37) Red Cell Distribution Width 18.6 % (11.5-14.5) Platelet Count 212 x10^3/uL (140-400) Neutrophils (%) (Auto) 92 % (31-73) Lymphocytes (%) (Auto) 4 % (24-48) Monocytes (%) (Auto) 4 % (0-9) Eosinophils (%) (Auto) 1 % (0-3) Basophils (%) (Auto) 0 % (0-3) Neutrophils # (Auto) 14.3 x10^3/uL (1.8-7.7) Lymphocytes # (Auto) 0.6 x10^3/uL (1.0-4.8) Monocytes # (Auto) 0.6 x10^3/uL (0.0-1.1) Eosinophils # (Auto) 0.1 x10^3/uL (0.0-0.7) Basophils # (Auto) 0.0 x10^3/uL (0.0-0.2) Sodium Level 136 mmol/L (136-145) Potassium Level 4.0 mmol/L (3.5-5.1) Chloride Level 100 mmol/L (98-107) Carbon Dioxide Level 25 mmol/L (21-32) Anion Gap 11 (6-14) Blood Urea Nitrogen 27 mg/dL (7-20) Creatinine 4.1 mg/dL (0.6-1.0) Estimated GFR (Cockcroft-Gault) 10.9 BUN/Creatinine Ratio 7 (6-20) Glucose Level 106 mg/dL (70-99) Calcium Level 8.0 mg/dL (8.5-10.1) Total Bilirubin 0.4 mg/dL (0.2-1.0) Aspartate Amino Transf (AST/SGOT) 67 U/L (15-37) Alanine Aminotransferase (ALT/SGPT) 201 U/L (14-59) Alkaline Phosphatase 175 U/L (46-116) Total Protein 5.4 g/dL (6.4-8.2) Albumin 1.4 g/dL (3.4-5.0) Albumin/Globulin Ratio 0.4 (1.0-1.7) Laboratory Tests Test 02/03/21 15:53 02/03/21 20:59 02/04/21 07:30 02/04/21 08:13 Glucose (Fingerstick) 176 mg/dL (70-99) 214 mg/dL (70-99) 84 mg/dL (70-99) White Blood Count 15.6 x10^3/uL (4.0-11.0) Red Blood Count 2.61 x10^6/uL (3.50-5.40) Hemoglobin 8.2 g/dL (12.0-15.5) Hematocrit 26.2 % (36.0-47.0) Mean Corpuscular Volume 100 fL (79-100) Mean Corpuscular Hemoglobin 31 pg (25-35) Mean Corpuscular Hemoglobin Concent 31 g/dL (31-37) Red Cell Distribution Width 18.6 % (11.5-14.5) Platelet Count 212 x10^3/uL (140-400) Neutrophils (%) (Auto) 92 % (31-73) Lymphocytes (%) (Auto) 4 % (24-48) Monocytes (%) (Auto) 4 % (0-9) Eosinophils (%) (Auto) 1 % (0-3) Basophils (%) (Auto) 0 % (0-3) Neutrophils # (Auto) 14.3 x10^3/uL (1.8-7.7) Lymphocytes # (Auto) 0.6 x10^3/uL (1.0-4.8) Monocytes # (Auto) 0.6 x10^3/uL (0.0-1.1) Eosinophils # (Auto) 0.1 x10^3/uL (0.0-0.7) Basophils # (Auto) 0.0 x10^3/uL (0.0-0.2) Sodium Level 136 mmol/L (136-145) Potassium Level 4.0 mmol/L (3.5-5.1) Chloride Level 100 mmol/L (98-107) Carbon Dioxide Level 25 mmol/L (21-32) Anion Gap 11 (6-14) Blood Urea Nitrogen 27 mg/dL (7-20) Creatinine 4.1 mg/dL (0.6-1.0) Estimated GFR (Cockcroft-Gault) 10.9 BUN/Creatinine Ratio 7 (6-20) Glucose Level 106 mg/dL (70-99) Calcium Level 8.0 mg/dL (8.5-10.1) Total Bilirubin 0.4 mg/dL (0.2-1.0) Aspartate Amino Transf (AST/SGOT) 67 U/L (15-37) Alanine Aminotransferase (ALT/SGPT) 201 U/L (14-59) Alkaline Phosphatase 175 U/L (46-116) Total Protein 5.4 g/dL (6.4-8.2) Albumin 1.4 g/dL (3.4-5.0) Albumin/Globulin Ratio 0.4 (1.0-1.7) Problem List Problems Medical Problems: (1) End stage kidney disease Status: Acute (2) Leukocytosis Status: Acute (3) Right foot infection Status: Acute Assessment/Plan Atherosclerosis with gangrene of the right lower extremity--patient has poor arterial flow into the level of the foot. Her toe amputation site and heel wound are stable but there is a high likelihood these will not heal based on poor microvascular flow. We will attempt wound VAC placement tomorrow. I did discuss with the patient that a below-knee amputation could be required. All questions were answered to her satisfaction regarding this. We will continue to monitor her status. Justicifation of Admission Dx: Justifications for Admission: Justification of Admission Dx: Yes Comments: Atherosclerosis gangrene right foot GONZÁLEZ SINGH DO Feb 04, 2021 14:58
[2021-02-04 15:00] VITALS: BP 118/49
--- NOTE | 2021-02-04 16:12 | PDOC ---
GENERAL General: Patient examined chart reviewed no events overnight noted. Patient tells me that if she is not moving she is okay but if she tries to put any weight on that foot it is very painful. We appreciate subspecialty support. Sounds like plan is for wound VAC tomorrow. Patient is certainly in a very difficult situation with her extensive multimorbidity. We will continue current management and work to optimize her extensive chronic multimorbidity. Problems: (1) End stage kidney disease (2) Gangrenous toe (3) PAD (peripheral artery disease) (4) Peripheral vascular disease (5) Diabetes mellitus type 2 with complications VITAL SIGNS Vital Signs/I&O: Vital Signs Date Time Temp Pulse Resp B/P (MAP) Pulse Ox O2 Delivery O2 Flow Rate FiO2 02/04/21 15:00 97.5 77 18 118/49 (72) 92 Room Air 97.5 02/03/21 23:18 2.0 I & O 02/03/21 02/03/21 02/04/21 15:00 23:00 07:00 Intake Total 120 ml Output Total 1 ml Balance -1 ml 120 ml Patient is resting comfortably in bed in no acute distress HEENT exam is unremarkable for acute abnormality Chest is clear to auscultation Heart S1-S2 normal regular rate and rhythm no murmurs or gallops are noted Abdomen soft nontender nondistended no masses organomegaly noted Extremity exam is unchanged from prior. Surgical dressings are dry clean and intact. ALLERGIES Allergies: Allergies Coded Allergies Type Severity Reaction Last Updated Verified pregabalin Allergy Intermediate 02/01/21 Yes MEDS Medications: Current Medications Medications (Trade) Dose Ordered Sig/Michelle Start Time Stop Time Status Last Admin Dose Admin Acetaminophen (Tylenol) 650 mg PRN Q6HRS PRN 02/03/21 13:30 Allopurinol (Zyloprim) 100 mg DAILY 02/03/21 14:00 02/04/21 08:03 Amlodipine Besylate (Norvasc) 5 mg DAILY 02/03/21 14:00 02/03/21 14:00 Anastrozole (Arimidex) 1 mg DAILY 02/03/21 14:00 02/04/21 08:11 Aspirin (Ecotrin) 81 mg DAILY 02/04/21 09:00 02/04/21 08:03 Atorvastatin Calcium (Lipitor) 80 mg HS 02/03/21 21:00 02/03/21 21:54 Calcium Carbonate/ Glycine (Oscal) 750 mg BIDWMEALS 02/03/21 17:00 02/04/21 08:05 Clopidogrel Bisulfate (Plavix) 75 mg DAILY 02/04/21 09:00 02/04/21 08:05 Desflurane (Suprane) 30 ml STK-MED ONCE 02/02/21 15:09 02/02/21 15:10 DC Dexamethasone Sodium Phosphate (Decadron) 4 mg STK-MED ONCE 02/02/21 15:09 02/02/21 15:09 DC Dextrose 1,000 ml @ 50 mls/hr Q20H 02/02/21 13:30 02/02/21 13:05 Dextrose (Dextrose 50%-Water Syringe) 12.5 gm PRN Q15MIN PRN 02/02/21 09:00 02/02/21 13:04 Ephedrine Sulfate (ePHEDrine PF IN SALINE SYRINGE) 50 mg STK-MED ONCE 02/02/21 15:00 02/02/21 15:00 DC Epoetin Galileo-epbx (RETACRIT for ESRD PTS) 10,000 unit MoWeFr@2100 02/02/21 21:00 02/02/21 21:45 Fentanyl Citrate (Fentanyl 2ml Vial) 50 mcg PRN Q1HR PRN 02/02/21 21:45 02/04/21 09:27 Ferrous Sulfate (Feosol) 325 mg DAILYWBKFT 02/03/21 14:00 02/04/21 08:03 Furosemide (Lasix) 80 mg DAILY 02/03/21 14:00 02/04/21 08:05 Hydromorphone HCl (Dilaudid) 0.5 mg PRN Q10MIN PRN 02/02/21 10:00 02/03/21 09:59 UNV Info (PHARMACY MONITORING -- do not chart) 1 each PRN DAILY PRN 02/03/21 07:30 Insulin Glargine (Lantus Syringe) 10 unit QHS 02/03/21 21:00 02/03/21 22:39 Insulin Human Regular (HumuLIN R VIAL) 100 unit TIDAC 02/03/21 16:30 02/03/21 13:32 DC Latanoprost (Xalatan) 1 drop QHS 02/03/21 21:00 10/9/21 21:55 Levothyroxine Sodium (Synthroid) 200 mcg DAILY06 02/03/21 14:00 02/04/21 06:35 Lidocaine HCl (Lidocaine Pf 2% Vial) 5 ml STK-MED ONCE 02/02/21 13:39 02/02/21 13:39 DC Lisinopril (Prinivil) 20 mg DAILY 02/03/21 14:00 02/04/21 08:04 Methocarbamol (Robaxin) 500 mg PRN Q8HRS PRN 02/03/21 13:30 Midodrine (Proamatine) 2.5 mg TID@0800,1300,1800 02/03/21 18:00 02/04/21 08:04 Morphine Sulfate (Morphine Sulfate) 1 mg PRN Q10MIN PRN 02/02/21 10:00 02/03/21 09:59 UNV Non-Formulary Medication (Amlodipine Besylate/ Benazepril (Amlodipine-Benazepril 5-20 Mg)) 1 cap DAILY 02/04/21 09:00 UNV Non-Formulary Medication (Omeprazole Magnesium (Prilosec Otc)) 1 tab DAILY 02/04/21 09:00 UNV Non-Formulary Medication (Pregabalin (Lyrica)) 150 mg Q3DAYS 02/06/21 09:00 UNV Ondansetron HCl (Zofran Odt) 4 mg Q6HRS PRN 02/03/21 13:45 Ondansetron HCl (Zofran) 4 mg STK-MED ONCE 02/02/21 15:09 02/02/21 15:09 DC Oxycodone HCl (Roxicodone) 5 mg PRN Q6HRS PRN 02/03/21 14:15 UNV Pantoprazole Sodium (Protonix) 40 mg DAILYAC 02/03/21 14:00 02/04/21 08:03 Phenylephrine HCl (PHENYLEPHRINE in 0.9% NACL PF) 1 mg STK-MED ONCE 02/02/21 13:40 02/02/21 13:40 DC Piperacillin Sod/ Tazobactam Sod 2.25 gm/Sodium Chloride 50 ml @ 100 mls/hr Q8HRS 02/02/21 09:00 02/04/21 13:59 Piperacillin Sod/ Tazobactam Sod 4.5 gm/Sodium Chloride 100 ml @ 200 mls/hr 1X ONCE 02/01/21 17:45 02/01/21 18:14 DC 02/01/21 18:10 Polyethylene Glycol (miraLAX PACKET) 17 gm PRN DAILY PRN 02/03/21 13:30 Pramipexole Dihydrochloride (miraPEX) 0.25 mg DAILY 02/04/21 09:00 UNV Prochlorperazine Edisylate (Compazine) 5 mg PACU PRN PRN 02/02/21 10:00 02/03/21 09:59 UNV Propofol (Diprivan) 200 mg STK-MED ONCE 02/02/21 13:39 02/02/21 13:39 DC Ringer's Solution 1,000 ml @ 30 mls/hr Q24H 02/02/21 10:00 02/02/21 21:59 UNV Senna/Docusate Sodium (Senna Plus) 1 tab DAILY 02/03/21 14:00 02/04/21 08:05 Sennosides (Senna) 8.6 mg PRN BID PRN 02/03/21 13:30 02/03/21 15:58 Sevoflurane (Ultane) 30 ml STK-MED ONCE 02/02/21 15:09 02/02/21 15:10 DC Sodium Bicarbonate (Sodium Bicarbonate) 650 mg TID 02/03/21 14:00 02/04/21 13:58 Sodium Chloride 1,000 ml @ 400 mls/hr Q2H30M PRN 02/03/21 07:30 02/03/21 19:29 DC Vancomycin HCl (Vanco Per Pharmacy) 1 each PRN DAILY PRN 02/02/21 08:30 02/03/21 09:49 Vancomycin HCl (Vancomycin Random Level) 1 each 1X ONCE 02/03/21 05:00 02/03/21 05:01 DC Vancomycin HCl 500 mg/Sodium Chloride 100 ml @ 100 mls/hr QTUTHSA 02/06/21 16:00 Vancomycin HCl 1 gm/Sodium Chloride 250 ml @ 250 mls/hr 1X ONCE 02/03/21 16:00 02/03/21 16:59 DC 02/03/21 16:55 Current Medications Medications (Trade) Dose Ordered Sig/Michelle Route PRN Reason Start Time Stop Time Status Last Admin Dose Admin Aspirin (Ecotrin) 81 mg DAILY PO 02/04/21 09:00 02/04/21 08:03 Atorvastatin Calcium (Lipitor) 80 mg HS PO 02/03/21 21:00 02/03/21 21:54 Calcium Carbonate/ Glycine (Oscal) 750 mg BIDWMEALS PO 02/03/21 17:00 02/04/21 08:05 Clopidogrel Bisulfate (Plavix) 75 mg DAILY PO 02/04/21 09:00 02/04/21 08:05 Insulin Glargine (Lantus Syringe) 10 unit QHS SQ 02/03/21 21:00 02/03/21 22:39 Latanoprost (Xalatan) 1 drop QHS OU 02/03/21 21:00 02/03/21 21:55 Midodrine (Proamatine) 2.5 mg TID@0800,1300,1800 PO 02/03/21 18:00 02/04/21 08:04 LAB Lab: Laboratory Tests Test 02/03/21 20:59 02/04/21 07:30 02/04/21 08:13 Glucose (Fingerstick) 214 mg/dL (70-99) H 84 mg/dL (70-99) White Blood Count 15.6 x10^3/uL (4.0-11.0) H Red Blood Count 2.61 x10^6/uL (3.50-5.40) L Hemoglobin 8.2 g/dL (12.0-15.5) L Hematocrit 26.2 % (36.0-47.0) L Mean Corpuscular Volume 100 fL (79-100) Mean Corpuscular Hemoglobin 31 pg (25-35) Mean Corpuscular Hemoglobin Concent 31 g/dL (31-37) Red Cell Distribution Width 18.6 % (11.5-14.5) H Platelet Count 212 x10^3/uL (140-400) Neutrophils (%) (Auto) 92 % (31-73) H Lymphocytes (%) (Auto) 4 % (24-48) L Monocytes (%) (Auto) 4 % (0-9) Eosinophils (%) (Auto) 1 % (0-3) Basophils (%) (Auto) 0 % (0-3) Neutrophils # (Auto) 14.3 x10^3/uL (1.8-7.7) H Lymphocytes # (Auto) 0.6 x10^3/uL (1.0-4.8) L Monocytes # (Auto) 0.6 x10^3/uL (0.0-1.1) Eosinophils # (Auto) 0.1 x10^3/uL (0.0-0.7) Basophils # (Auto) 0.0 x10^3/uL (0.0-0.2) Sodium Level 136 mmol/L (136-145) Potassium Level 4.0 mmol/L (3.5-5.1) # Chloride Level 100 mmol/L (98-107) Carbon Dioxide Level 25 mmol/L (21-32) Anion Gap 11 (6-14) Blood Urea Nitrogen 27 mg/dL (7-20) H Creatinine 4.1 mg/dL (0.6-1.0) H Estimated GFR (Cockcroft-Gault) 10.9 BUN/Creatinine Ratio 7 (6-20) Glucose Level 106 mg/dL (70-99) H Calcium Level 8.0 mg/dL (8.5-10.1) L Total Bilirubin 0.4 mg/dL (0.2-1.0) Aspartate Amino Transferase (AST) 67 U/L (15-37) H Alanine Aminotransferase (ALT) 201 U/L (14-59) H Alkaline Phosphatase 175 U/L (46-116) H Total Protein 5.4 g/dL (6.4-8.2) L Albumin 1.4 g/dL (3.4-5.0) L Albumin/Globulin Ratio 0.4 (1.0-1.7) L Laboratory Tests 02/04/21 07:30 Laboratory Tests 02/04/21 07:30 ASSESSMENT & PLAN A&P Plan as noted above This note was created using [employer] and may have omissions and/or errors due to the nature of real-time voice alliances consultant. Justifications for Admission Other Justification DESTINY BOWER MD Feb 04, 2021 16:12
--- NOTE | 2021-02-04 18:34 | NUR ---
Patient refused photos.
[2021-02-04 19:00] VITALS: BP 115/32
[2021-02-04] MEDS: ATORVASTATIN CALCIUM 40 MG TABLET. PO SCH (21:14)
[2021-02-04] MEDS: INSULIN GLARGINE SYRINGE. SQ SCH (22:36)
[2021-02-04 23:00] VITALS: BP 100/34
[2021-02-04] MEDS: LATANOPROST 0.005% OPHTH SOLUTION 2.5ML BOTTLE. OU SCH (23:16)
[2021-02-05] VITALS (7 sets, daily range): BP systolic 79–123; BP diastolic 30–48
[2021-02-05] MEDS: PIPERACILLIN/TAZOBACTAM 2.25 GM in IV NORMAL SALINE 50ML 50 ML IV SCH (05:53)
[2021-02-05] MEDS: oxyCODONE IR 5 MG TABLET PO PRN ×3 (06:02→21:31)
[2021-02-05] MEDS: LEVOTHYROXINE 100 MCG TABLET PO SCH (06:02)
[2021-02-05] MEDS: IV DEXTROSE 5% 1,000 ML IV SCH ×2 (06:05→21:42)
[2021-02-05 06:47] LABS: ALBUMIN 1.2 g/dL (3.4-5.0); ALBUMIN/GLOBULIN RATIO 0.3 (1.0-1.7); CALCIUM 7.6 mg/dL (8.5-10.1); CREATININE 4.9 mg/dL (0.6-1.0); GFR 8.9; POTASSIUM 3.5 mmol/L (3.5-5.1); TOTAL BILIRUBIN 0.3 mg/dL (0.2-1.0); TOTAL PROTEIN 4.7 g/dL (6.4-8.2)
[2021-02-05 07:09] LABS: BASO % 0 % (0-3); EOS # 0.2 x10^3/uL (0.0-0.7); EOS % 2 % (0-3); HEMATOCRIT 25.3 % (36.0-47.0); HEMOGLOBIN 7.7 g/dL (12.0-15.5); LYMPH # 0.5 x10^3/uL (1.0-4.8); LYMPH % 4 % (24-48); MEAN CORPUSCULAR HEMOGLOBIN 31 pg (25-35); MEAN CORPUSCULAR HGB CONC 31 g/dL (31-37); MEAN CORPUSCULAR VOLUME 100 fL (79-100); MONO # 0.6 x10^3/uL (0.0-1.1); MONO % 5 % (0-9); NEUT # 10.8 x10^3/uL (1.8-7.7); NEUT % 90 % (31-73); PLATELET COUNT 181 x10^3/uL (140-400); RED BLOOD COUNT 2.52 x10^6/uL (3.50-5.40); RED CELL DISTRIBUTION WIDTH 18.4 % (11.5-14.5); WHITE BLOOD COUNT 12.1 x10^3/uL (4.0-11.0)
[2021-02-05] MEDS: CALCIUM CARBONATE 500 MG TABLET PO SCH ×2 (08:00→15:48)
--- NOTE | 2021-02-05 08:19 | PDOC ---
Infectious Disease Note Subjective Subjective Patient is feeling good ROS ROS no n/v/d/sob Vital Sign Vital Signs Vital Signs Date Time Temp Pulse Resp B/P (MAP) Pulse Ox O2 Delivery O2 Flow Rate FiO2 02/05/21 03:00 97.5 65 16 113/48 (69) 95 Room Air 97.5 02/04/21 21:44 2.0 Physical Exam PHYSICAL EXAM GENERAL: Alert and oriented x 3 female, lying in bed comfortably, in no acute distress. HEENT: Normocephalic, atraumatic and anicteric. No thrush. Oral mucosa moist. NECK: Supple. LUNGS: Clear bilaterally. No wheezing. HEART: S1, S2. No murmurs. ABDOMEN: Soft, nontender, and nondistended. EXTREMITIES: Right foot wound seen,, large , deep, slightly necrotic edges Left foot no acute change BACK: Reveals normal curvature. No CVA tenderness. NEUROLOGIC: Alert and oriented x 3, grossly nonfocal. PSYCHIATRIC: Calm and cooperative. Labs Lab Laboratory Tests Test 02/04/21 08:13 02/04/21 16:51 02/04/21 20:28 02/05/21 06:15 Glucose (Fingerstick) 84 mg/dL (70-99) 119 mg/dL (70-99) 224 mg/dL (70-99) White Blood Count 12.1 x10^3/uL (4.0-11.0) Red Blood Count 2.52 x10^6/uL (3.50-5.40) Hemoglobin 7.7 g/dL (12.0-15.5) Hematocrit 25.3 % (36.0-47.0) Mean Corpuscular Volume 100 fL (79-100) Mean Corpuscular Hemoglobin 31 pg (25-35) Mean Corpuscular Hemoglobin Concent 31 g/dL (31-37) Red Cell Distribution Width 18.4 % (11.5-14.5) Platelet Count 181 x10^3/uL (140-400) Neutrophils (%) (Auto) 90 % (31-73) Lymphocytes (%) (Auto) 4 % (24-48) Monocytes (%) (Auto) 5 % (0-9) Eosinophils (%) (Auto) 2 % (0-3) Basophils (%) (Auto) 0 % (0-3) Neutrophils # (Auto) 10.8 x10^3/uL (1.8-7.7) Lymphocytes # (Auto) 0.5 x10^3/uL (1.0-4.8) Monocytes # (Auto) 0.6 x10^3/uL (0.0-1.1) Eosinophils # (Auto) 0.2 x10^3/uL (0.0-0.7) Basophils # (Auto) 0.0 x10^3/uL (0.0-0.2) Sodium Level 138 mmol/L (136-145) Potassium Level 3.5 mmol/L (3.5-5.1) Chloride Level 102 mmol/L (98-107) Carbon Dioxide Level 25 mmol/L (21-32) Anion Gap 11 (6-14) Blood Urea Nitrogen 33 mg/dL (7-20) Creatinine 4.9 mg/dL (0.6-1.0) Estimated GFR (Cockcroft-Gault) 8.9 BUN/Creatinine Ratio 7 (6-20) Glucose Level 70 mg/dL (70-99) Calcium Level 7.6 mg/dL (8.5-10.1) Total Bilirubin 0.3 mg/dL (0.2-1.0) Aspartate Amino Transf (AST/SGOT) 56 U/L (15-37) Alanine Aminotransferase (ALT/SGPT) 169 U/L (14-59) Alkaline Phosphatase 97 U/L (46-116) Total Protein 4.7 g/dL (6.4-8.2) Albumin 1.2 g/dL (3.4-5.0) Albumin/Globulin Ratio 0.3 (1.0-1.7) Test 02/05/21 07:23 Glucose (Fingerstick) 77 mg/dL (70-99) Micro Microbiology 02/01/21 Blood Culture - Preliminary, Resulted NO GROWTH AFTER 3 DAYS Objective Assessment 1. Right fifth toe gangrene with right lateral and right heel wounds. Ray amputation of the right fifth toe including the metatarsal head I and D of the right heel February 02, 2021 Cultures not available 2. Peripheral vascular disease, status post angioplasty at on 01/16/2021. 3. End-stage renal disease, on hemodialysis. 4. Diabetes with neuropathy. 5. Protein-calorie malnutrition. 6. Abnormal LFTs. 7. Anemia. Plan Plan of Care Continue IV vancomycin and Zosyn. Wound care as directed Monitor labs and cultures continue supportive care once vascular ok to d/c , then change zosyn to cefepime, vanc and cefepime through HD STEVE AGUILAR MD Feb 05, 2021 08:19
[2021-02-05] MEDS: FERROUS SULFATE 325 MG TABLET. PO SCH (09:45)
[2021-02-05] MEDS: PANTOPRAZOLE 40 MG TABLET.DR. PO SCH (09:45)
[2021-02-05] MEDS: ALLOPURINOL 100 MG TABLET. PO SCH (09:45)
[2021-02-05] MEDS: LISINOPRIL 20 MG TABLET PO SCH (09:45)
[2021-02-05] MEDS: SODIUM BICARBONATE 650 MG TABLET. PO SCH ×3 (09:46→21:30)
[2021-02-05] MEDS: SENNOSIDES/DOCUSATE 8.6/50MG TABLET. PO SCH (09:46)
[2021-02-05] MEDS: PRAMIPEXOLE 0.25 MG TABLET. PO SCH (09:47)
[2021-02-05] MEDS: ASPIRIN ENTERIC COATED 81 MG TABLET.DR. PO SCH (09:47)
[2021-02-05] MEDS: MIDODRINE 2.5 MG TABLET PO SCH ×3 (09:47→17:41)
[2021-02-05] MEDS: FUROSEMIDE 80 MG TABLET. PO SCH (09:47)
[2021-02-05] MEDS: CLOPIDOGREL BISULFATE 75 MG TABLET PO SCH (09:47)
[2021-02-05] MEDS: ANASTROZOLE 1 MG TABLET PO SCH (09:54)
--- NOTE | 2021-02-05 10:40 | NUR ---
SW following. Discussed with RN, SW discovered pt is actually from [facility]. PT/OT ordered. COVID0-19 negative. Pt getting a wound vac today. Pt had surgery om 02/02. SW will continue to follow.
--- NOTE | 2021-02-05 10:56 | PDOC ---
Renal-Progress Notes Subjective Notes Notes NO NEW COMPLAINTS History of Present Illness Hx of present illness STILL HAS PAIN RLE Vitals Vitals Vital Signs Date Time Temp Pulse Resp B/P (MAP) Pulse Ox O2 Delivery O2 Flow Rate FiO2 02/05/21 09:47 59 123/39 02/05/21 07:24 97.8 12 92 Room Air 97.8 02/04/21 21:44 2.0 Weight Weight [ ] I.O. Intake and Output Intake and Output 02/05/21 07:00 Intake Total 660 ml Balance 660 ml Intake Oral 660 ml # Voids 3 # Bowel Movements 2 Labs Labs Laboratory Tests Test 02/04/21 16:51 02/04/21 20:28 02/05/21 06:15 02/05/21 07:23 Glucose (Fingerstick) 119 mg/dL (70-99) 224 mg/dL (70-99) 77 mg/dL (70-99) White Blood Count 12.1 x10^3/uL (4.0-11.0) Red Blood Count 2.52 x10^6/uL (3.50-5.40) Hemoglobin 7.7 g/dL (12.0-15.5) Hematocrit 25.3 % (36.0-47.0) Mean Corpuscular Volume 100 fL (79-100) Mean Corpuscular Hemoglobin 31 pg (25-35) Mean Corpuscular Hemoglobin Concent 31 g/dL (31-37) Red Cell Distribution Width 18.4 % (11.5-14.5) Platelet Count 181 x10^3/uL (140-400) Neutrophils (%) (Auto) 90 % (31-73) Lymphocytes (%) (Auto) 4 % (24-48) Monocytes (%) (Auto) 5 % (0-9) Eosinophils (%) (Auto) 2 % (0-3) Basophils (%) (Auto) 0 % (0-3) Neutrophils # (Auto) 10.8 x10^3/uL (1.8-7.7) Lymphocytes # (Auto) 0.5 x10^3/uL (1.0-4.8) Monocytes # (Auto) 0.6 x10^3/uL (0.0-1.1) Eosinophils # (Auto) 0.2 x10^3/uL (0.0-0.7) Basophils # (Auto) 0.0 x10^3/uL (0.0-0.2) Sodium Level 138 mmol/L (136-145) Potassium Level 3.5 mmol/L (3.5-5.1) Chloride Level 102 mmol/L (98-107) Carbon Dioxide Level 25 mmol/L (21-32) Anion Gap 11 (6-14) Blood Urea Nitrogen 33 mg/dL (7-20) Creatinine 4.9 mg/dL (0.6-1.0) Estimated GFR (Cockcroft-Gault) 8.9 BUN/Creatinine Ratio 7 (6-20) Glucose Level 70 mg/dL (70-99) Calcium Level 7.6 mg/dL (8.5-10.1) Total Bilirubin 0.3 mg/dL (0.2-1.0) Aspartate Amino Transf (AST/SGOT) 56 U/L (15-37) Alanine Aminotransferase (ALT/SGPT) 169 U/L (14-59) Alkaline Phosphatase 97 U/L (46-116) Total Protein 4.7 g/dL (6.4-8.2) Albumin 1.2 g/dL (3.4-5.0) Albumin/Globulin Ratio 0.3 (1.0-1.7) Micro Micro Microbiology 02/01/21 Blood Culture - Preliminary, Resulted NO GROWTH AFTER 3 DAYS Review of Systems Constitutional: yes: weakness, alert Eyes: Yes: no symptom reported Pulmonary: Yes no symptom reported Cardiovascular: Yes no symptom reported Gastrointestional: Yes: constipation Genitourinary: Yes: no symptom reported Musculoskeletal: Yes: foot pain Skin: Yes no symptom reported Psychiatric/Neurological: Yes: no symptom reported Endocrine: Yes: no symptom reported Hematologic/Lymphatic: Yes: no symptom reported Physical Exam General Appearance: no apparent distress Skin: warm Respiratory: bilateral CTA Heart: S1S2 Abdomen: soft, bowel sounds present Genitourinary: bladder flat Extremities: pulses present, atrophy Neurology: alert, oriented Assessment Assessment IMP ESRD ANEMIA DM II HTN R FOOT TOE GANGRENE-S/P RAY AMP 5TH TOE PLAN HD TOMORROW ANTIBIOTICS CONT ANNIA WILL FOLLOW CHUYITA TINAJERO MD Feb 05, 2021 10:56
[2021-02-05] MEDS: LACTOBACILLUS RHAMNOSUS GG 1 CAPSULE. PO SCH ×2 (12:14→21:30)
--- NOTE | 2021-02-05 12:23 | PDOC ---
Provider Note Date of Service: DATE: 02/05/21 TIME: 12:19 Provider Note Provider Note S:Patient reports pain at night at amputation site O: SKIN: The heel and toe amputation sites have gangrenous changes and evidence of poor perfusion. There is some evidence of developing infection along the plantar aspect of the open 5th toe amputation site. There is developing eschar over the right heel. There is additionally a superficial dorsal wound to the right foot. MSK: Intact ankle dorsiflexion/extention A: Nonhealing toe amputation site Peripheral arterial disease s/p endovascular revascularization of the AT P: Patient interested in limb salvage efforts. Explained high likelihood of limb loss. Will proceed with angiography on friday for repeat tibial intervention and debridement and 4th toe amp on .vs BKA if unable to revascularize further. Justicifation of Admission Dx: Justifications for Admission: Justification of Admission Dx: Yes COCO CASON MD Feb 05, 2021 12:23
--- NOTE | 2021-02-05 12:38 | PDOC ---
[facility] PROGRESS NOTE Date of Service DOS: DATE: 02/05/21 TIME: 12:37 Chief Complaint Chief Complaint 1. Right fifth toe gangrene with right lateral and right heel wounds. Ray amputation of the right fifth toe including the metatarsal head I and D of the right heel February 02, 2021 Cultures not available 2. Peripheral vascular disease, status post angioplasty at on 01/16/2021. 3. End-stage renal disease, on hemodialysis. 4. Diabetes with neuropathy. 5. Protein-calorie malnutrition. 6. Abnormal LFTs. 7. Anemia. History of Present Illness History of Present Illness Continue IV abx, ID following, on zosyn Vasc plans Angio wed, and limb salvage surg on con tcurrent Wound care as directed Monitor labs and cultures Vitals/I&O Vitals/I&O: Vital Signs Date Time Temp Pulse Resp B/P (MAP) Pulse Ox O2 Delivery O2 Flow Rate FiO2 02/05/21 12:14 Room Air 02/05/21 09:47 59 123/39 02/05/21 07:24 97.8 12 92 97.8 02/04/21 21:44 2.0 I & O 02/04/21 02/04/21 02/05/21 15:00 23:00 07:00 Intake Total 300 ml 360 ml Balance 300 ml 360 ml Physical Exam Physical Exam: GENERAL: Alert and oriented x 3 female, lying in bed comfortably, in no acute distress. HEENT: Normocephalic, atraumatic and anicteric. No thrush. Oral mucosa moist. NECK: Supple. LUNGS: Clear bilaterally. No wheezing. HEART: S1, S2. No murmurs. ABDOMEN: Soft, nontender, and nondistended. EXTREMITIES: Right foot wound seen,, large , deep, slightly necrotic edges Left foot no acute change BACK: Reveals normal curvature. No CVA tenderness. NEUROLOGIC: Alert and oriented x 3, grossly nonfocal. PSYCHIATRIC: Calm and cooperative. General: Alert, Oriented X3, Cooperative Heart: Regular rate, Normal S1, Normal S2, No murmurs, Gallops Lungs: Clear Abdomen: Normal bowel sounds, Soft, No tenderness, No hepatosplenomegaly, No masses Extremities: Other Labs Labs: Laboratory Tests Test 02/04/21 16:51 02/04/21 20:28 02/05/21 06:15 02/05/21 07:23 Glucose (Fingerstick) 119 mg/dL (70-99) 224 mg/dL (70-99) 77 mg/dL (70-99) White Blood Count 12.1 x10^3/uL (4.0-11.0) Red Blood Count 2.52 x10^6/uL (3.50-5.40) Hemoglobin 7.7 g/dL (12.0-15.5) Hematocrit 25.3 % (36.0-47.0) Mean Corpuscular Volume 100 fL (79-100) Mean Corpuscular Hemoglobin 31 pg (25-35) Mean Corpuscular Hemoglobin Concent 31 g/dL (31-37) Red Cell Distribution Width 18.4 % (11.5-14.5) Platelet Count 181 x10^3/uL (140-400) Neutrophils (%) (Auto) 90 % (31-73) Lymphocytes (%) (Auto) 4 % (24-48) Monocytes (%) (Auto) 5 % (0-9) Eosinophils (%) (Auto) 2 % (0-3) Basophils (%) (Auto) 0 % (0-3) Neutrophils # (Auto) 10.8 x10^3/uL (1.8-7.7) Lymphocytes # (Auto) 0.5 x10^3/uL (1.0-4.8) Monocytes # (Auto) 0.6 x10^3/uL (0.0-1.1) Eosinophils # (Auto) 0.2 x10^3/uL (0.0-0.7) Basophils # (Auto) 0.0 x10^3/uL (0.0-0.2) Sodium Level 138 mmol/L (136-145) Potassium Level 3.5 mmol/L (3.5-5.1) Chloride Level 102 mmol/L (98-107) Carbon Dioxide Level 25 mmol/L (21-32) Anion Gap 11 (6-14) Blood Urea Nitrogen 33 mg/dL (7-20) Creatinine 4.9 mg/dL (0.6-1.0) Estimated GFR (Cockcroft-Gault) 8.9 BUN/Creatinine Ratio 7 (6-20) Glucose Level 70 mg/dL (70-99) Calcium Level 7.6 mg/dL (8.5-10.1) Total Bilirubin 0.3 mg/dL (0.2-1.0) Aspartate Amino Transf (AST/SGOT) 56 U/L (15-37) Alanine Aminotransferase (ALT/SGPT) 169 U/L (14-59) Alkaline Phosphatase 97 U/L (46-116) Total Protein 4.7 g/dL (6.4-8.2) Albumin 1.2 g/dL (3.4-5.0) Albumin/Globulin Ratio 0.3 (1.0-1.7) Test 02/05/21 11:06 Glucose (Fingerstick) 73 mg/dL (70-99) Assessment and Plan Assessmemt and Plan Problems Medical Problems: (1) End stage kidney disease Status: Acute (2) Leukocytosis Status: Acute (3) Right foot infection Status: Acute Comment Review of Relevant I have reviewed the following items mimi (where applicable) has been applied. Medications: Current Medications Medications (Trade) Dose Ordered Sig/Michelle Route PRN Reason Start Time Stop Time Status Last Admin Dose Admin Lactobacillus Rhamnosus (Culturelle) 1 cap BID PO 02/05/21 12:00 02/05/21 12:14 Justifications for Admission Other Justification PRETTY TRACY MD Feb 05, 2021 12:38
--- NOTE | 2021-02-05 16:50 | NUR ---
Wound Care Spoke with Dr. Scott re: possible NPWT placement today. Dr. Scott stated he would like to hold off, as she is having an Angio Friday, followed by wound debridements vs. BKA on , orders to place Xeroform over wounds for the time being. Attempted to see pt for wound assessment and dressing changes, as pt's wounds have not been photographed yet. Pt declined dressing changes, stating they were already changed today, informed pt wound care would return tomorrow, pt v/u.
[2021-02-05] MEDS: ONDANSETRON ODT 4 MG TAB.RAPDIS. PO PRN (17:58)
[2021-02-05] MEDS: ATORVASTATIN CALCIUM 40 MG TABLET. PO SCH (21:30)
[2021-02-05] MEDS: LATANOPROST 0.005% OPHTH SOLUTION 2.5ML BOTTLE. OU SCH (21:32)
[2021-02-05] MEDS: INSULIN GLARGINE SYRINGE. SQ SCH (21:36)
[2021-02-05] MEDS: EPOETIN ALFA-EPBX for ESRD 20,000 UNIT/ML VIAL. SQ SCH (21:36)
[2021-02-06 03:00] VITALS: BP 99/43
--- NOTE | 2021-02-06 04:55 | NUR ---
Patient had attempted to void multiple times and declined straight catheter. At 0435 bladder scan done and revealed 576. Straight catheter placed using sterile technique and Patient tolerated procedure without any complaints. Straight catheter removed at this time and 475 cc clear tobi urine removed. uKnal denies any c/o at this time. Addendum: 02/06/21 at 0713 by NA BOO RN Mistaken entry: Wrong Patient.
[2021-02-06] MEDS: oxyCODONE IR 5 MG TABLET PO PRN ×2 (04:57→17:35)
[2021-02-06 04:59] LABS: CALCIUM 7.5 mg/dL (8.5-10.1); CREATININE 5.5 mg/dL (0.6-1.0); GFR 7.8; POTASSIUM 3.4 mmol/L (3.5-5.1)
[2021-02-06] MEDS: LEVOTHYROXINE 100 MCG TABLET PO SCH (05:28)
[2021-02-06] MEDS: PANTOPRAZOLE 40 MG TABLET.DR. PO SCH (05:28)
[2021-02-06 07:00] VITALS: BP 55/22
--- NOTE | 2021-02-06 07:03 | PDOC ---
[facility] PROGRESS NOTE Date of Service DOS: DATE: 02/06/21 TIME: 07:03 Chief Complaint Chief Complaint A/P: Right fifth toe gangrene with right lateral and right heel wounds - s/p Ray amputation of the right fifth toe including the metatarsal head I and D of the right heel February 02, 2021 Peripheral vascular disease, status post angioplasty at on 01/16/2021. End-stage renal disease, on hemodialysis. Diabetes with neuropathy. Protein-calorie malnutrition. Abnormal LFTs. Anemia. History of Present Illness History of Present Illness Ms Ruelas is a 65-year-old female with history of diabetes; hypertension; coronary artery disease; CABG; end-stage renal disease, on dialysis; peripheral vascular disease, who underwent angiogram and angioplasty of the right anterior tibial artery at on 01/16/2021 who presented to the ER with complaints of wounds of the right lower extremity for a couple of weeks. She denies any history of injury. Denies fevers, chills, nausea, vomiting, diarrhea, headache, sore throat, difficulty swallowing, shortness of breath, or cough. 02/05: Continue IV abx, ID following, on zosyn. Vasc plans Angio wed, and limb salvage surg on . Wound care as directed. Monitor labs and cultures. Afebrile. Lost and IV access overnight and right EJ IV not functioning. Patient only has pain complaints referable right leg is touched. Blood pressures been running low. Scheduled for dialysis today. Vitals/I&O Vitals/I&O: Vital Signs Date Time Temp Pulse Resp B/P (MAP) Pulse Ox O2 Delivery O2 Flow Rate FiO2 02/06/21 05:27 18 95 Room Air 02/06/21 03:00 97.7 68 99/43 (61) 97.7 02/05/21 13:05 94.0 I & O 02/05/21 02/05/21 02/06/21 15:00 23:00 07:00 Intake Total 400 ml Output Total 475 ml Balance -75 ml Physical Exam Physical Exam: GENERAL: Alert and oriented x 3 female, lying in bed comfortably, in no acute distress. HEENT: Normocephalic, atraumatic and anicteric. No thrush. Oral mucosa moist. NECK: Supple. LUNGS: Clear bilaterally. No wheezing. HEART: S1, S2. No murmurs. ABDOMEN: Soft, nontender, and nondistended. EXTREMITIES: Right foot wound seen,, large , deep, slightly necrotic edges Left foot no acute change BACK: Reveals normal curvature. No CVA tenderness. NEUROLOGIC: Alert and oriented x 3, grossly nonfocal. PSYCHIATRIC: Calm and cooperative. General: Alert, Oriented X3, Cooperative Heart: Regular rate, Normal S1, Normal S2, No murmurs, Gallops Lungs: Clear Abdomen: Normal bowel sounds, Soft, No tenderness, No hepatosplenomegaly, No masses Extremities: Other Labs Labs: Laboratory Tests Test 02/05/21 07:23 02/05/21 11:06 02/05/21 21:33 02/06/21 04:25 Glucose (Fingerstick) 77 mg/dL (70-99) 73 mg/dL (70-99) 79 mg/dL (70-99) Sodium Level 139 mmol/L (136-145) Potassium Level 3.4 mmol/L (3.5-5.1) Chloride Level 102 mmol/L (98-107) Carbon Dioxide Level 26 mmol/L (21-32) Anion Gap 11 (6-14) Blood Urea Nitrogen 36 mg/dL (7-20) Creatinine 5.5 mg/dL (0.6-1.0) Estimated GFR (Cockcroft-Gault) 7.8 Glucose Level 62 mg/dL (70-99) Calcium Level 7.5 mg/dL (8.5-10.1) Assessment and Plan Assessmemt and Plan Problems Medical Problems: (1) End stage kidney disease Status: Acute (2) Leukocytosis Status: Acute (3) Right foot infection Status: Acute Comment Review of Relevant I have reviewed the following items mimi (where applicable) has been applied. Medications: Current Medications Medications (Trade) Dose Ordered Sig/Michelle Route PRN Reason Start Time Stop Time Status Last Admin Dose Admin Lactobacillus Rhamnosus (Culturelle) 1 cap BID PO 02/05/21 12:00 02/05/21 21:30 Justifications for Admission Other Justification KAUSHIK SUMMERS MD Feb 06, 2021 07:03
[2021-02-06 07:34] VITALS: BP 73/34
[2021-02-06] MEDS: CALCIUM CARBONATE 500 MG TABLET PO SCH ×2 (08:00→16:59)
[2021-02-06] MEDS: LACTOBACILLUS RHAMNOSUS GG 1 CAPSULE. PO SCH ×2 (08:13→21:40)
[2021-02-06] MEDS: FERROUS SULFATE 325 MG TABLET. PO SCH (08:13)
[2021-02-06] MEDS: ASPIRIN ENTERIC COATED 81 MG TABLET.DR. PO SCH (08:13)
[2021-02-06] MEDS: ALLOPURINOL 100 MG TABLET. PO SCH (08:13)
[2021-02-06] MEDS: CLOPIDOGREL BISULFATE 75 MG TABLET PO SCH (08:13)
[2021-02-06] MEDS: SENNOSIDES/DOCUSATE 8.6/50MG TABLET. PO SCH (08:13)
[2021-02-06] MEDS: MIDODRINE 2.5 MG TABLET PO SCH ×3 (08:13→17:35)
[2021-02-06] MEDS: SODIUM BICARBONATE 650 MG TABLET. PO SCH ×3 (08:13→21:40)
[2021-02-06] MEDS: ANASTROZOLE 1 MG TABLET PO SCH (08:19)
[2021-02-06] MEDS ORDERED: IV NORMAL SALINE 1000ML BAG 1,000 ML IV PRN ×2 (08:30)
[2021-02-06] MEDS ORDERED: DIALYSIS PATIENT. MC PRN ×2 (08:30)
--- NOTE | 2021-02-06 08:45 | PDOC ---
Infectious Disease Note Subjective Subjective Patient is feeling good ROS ROS no n/v/d/ Vital Sign Vital Signs Vital Signs Date Time Temp Pulse Resp B/P (MAP) Pulse Ox O2 Delivery O2 Flow Rate FiO2 02/06/21 08:13 64 73/34 02/06/21 07:00 96.7 10 100 Nasal Cannula 2.0 96.7 Physical Exam PHYSICAL EXAM GENERAL: Alert and oriented x 3 female, lying in bed comfortably, in no acute distress. HEENT: Normocephalic, atraumatic and anicteric. No thrush. Oral mucosa moist. NECK: Supple. LUNGS: Clear bilaterally. No wheezing. HEART: S1, S2. No murmurs. ABDOMEN: Soft, nontender, and nondistended. EXTREMITIES: Right foot wound seen,, large , deep, slightly necrotic edges Left foot no acute change BACK: Reveals normal curvature. No CVA tenderness. NEUROLOGIC: Alert and oriented x 3, grossly nonfocal. PSYCHIATRIC: Calm and cooperative. Labs Lab Laboratory Tests Test 02/05/21 11:06 02/05/21 21:33 02/06/21 04:25 02/06/21 07:06 Glucose (Fingerstick) 73 mg/dL (70-99) 79 mg/dL (70-99) 107 mg/dL (70-99) Sodium Level 139 mmol/L (136-145) Potassium Level 3.4 mmol/L (3.5-5.1) Chloride Level 102 mmol/L (98-107) Carbon Dioxide Level 26 mmol/L (21-32) Anion Gap 11 (6-14) Blood Urea Nitrogen 36 mg/dL (7-20) Creatinine 5.5 mg/dL (0.6-1.0) Estimated GFR (Cockcroft-Gault) 7.8 Glucose Level 62 mg/dL (70-99) Calcium Level 7.5 mg/dL (8.5-10.1) Micro Microbiology 02/01/21 Blood Culture - Preliminary, Resulted NO GROWTH AFTER 3 DAYS Objective Assessment 1. Right fifth toe gangrene with right lateral and right heel wounds. Ray amputation of the right fifth toe including the metatarsal head I and D of the right heel February 02, 2021 Cultures not available 2. Peripheral vascular disease, status post angioplasty at on 01/16/2021. 3. End-stage renal disease, on hemodialysis. 4. Diabetes with neuropathy. 5. Protein-calorie malnutrition. 6. Abnormal LFTs. 7. Anemia. Plan Plan of Care Wound care as directed Monitor labs and cultures continue supportive care once vascular ok to d/c , vanc and cefepime through HD f/u with ID in 2-3 wks STEVE AGUILAR MD Feb 06, 2021 08:45
[2021-02-06] MEDS: FUROSEMIDE 80 MG TABLET. PO SCH (09:00)
[2021-02-06] MEDS: LISINOPRIL 20 MG TABLET PO SCH (09:00)
[2021-02-06] MEDS ORDERED: PREGABALIN 150 MG PO SCH (09:00)
[2021-02-06] MEDS: PRAMIPEXOLE 0.25 MG TABLET. PO SCH (09:00)
--- NOTE | 2021-02-06 10:07 | NUR ---
SW following. Discussed with RN, pt not wanting to return to [facility] for SNF. Plans for I&D or possible amputation on . SW will follow up after procedure. SW will continue to follow.
--- NOTE | 2021-02-06 10:54 | PDOC ---
Renal-Progress Notes Subjective Notes Notes NO NEW COMPLAINTS History of Present Illness Hx of present illness DOING WELL Vitals Vitals Vital Signs Date Time Temp Pulse Resp B/P (MAP) Pulse Ox O2 Delivery O2 Flow Rate FiO2 02/06/21 08:13 64 73/34 02/06/21 07:00 96.7 10 100 Nasal Cannula 2.0 96.7 Weight Weight [ ] I.O. Intake and Output Intake and Output 02/06/21 07:00 Intake Total 400 ml Output Total 475 ml Balance -75 ml Intake Oral 400 ml Output Urine Total 475 ml # Bowel Movements 2 Labs Labs Laboratory Tests Test 02/05/21 11:06 02/05/21 21:33 02/06/21 04:25 02/06/21 07:06 Glucose (Fingerstick) 73 mg/dL (70-99) 79 mg/dL (70-99) 107 mg/dL (70-99) Sodium Level 139 mmol/L (136-145) Potassium Level 3.4 mmol/L (3.5-5.1) Chloride Level 102 mmol/L (98-107) Carbon Dioxide Level 26 mmol/L (21-32) Anion Gap 11 (6-14) Blood Urea Nitrogen 36 mg/dL (7-20) Creatinine 5.5 mg/dL (0.6-1.0) Estimated GFR (Cockcroft-Gault) 7.8 Glucose Level 62 mg/dL (70-99) Calcium Level 7.5 mg/dL (8.5-10.1) Micro Micro Microbiology 02/01/21 Blood Culture - Preliminary, Resulted NO GROWTH AFTER 4 DAYS Review of Systems Constitutional: yes: weakness, alert Eyes: Yes: no symptom reported Pulmonary: Yes no symptom reported Cardiovascular: Yes no symptom reported Gastrointestional: Yes: constipation Genitourinary: Yes: no symptom reported Musculoskeletal: Yes: foot pain Skin: Yes no symptom reported Psychiatric/Neurological: Yes: no symptom reported Endocrine: Yes: no symptom reported Hematologic/Lymphatic: Yes: no symptom reported Physical Exam General Appearance: no apparent distress Skin: warm Respiratory: bilateral CTA Heart: S1S2 Abdomen: soft, bowel sounds present Genitourinary: bladder flat Extremities: pulses present, atrophy Neurology: alert, oriented Assessment Assessment IMP ESRD ANEMIA DM II HTN R FOOT TOE GANGRENE-S/P RAY AMP 5TH TOE PLAN HD TODAY UF TO TW ANTIBIOTICS CONT ANNIA WILL FOLLOW CHUYITA TINAJERO MD Feb 06, 2021 10:54
[2021-02-06] MEDS: VANCOMYCIN PER PHARMACY MC PRN (11:50)
[2021-02-06] MEDS: MIDODRINE 5 MG TABLET PO PRN (11:59)
--- NOTE | 2021-02-06 14:19 | NUR ---
Wound Care: Spoke with RN and patient is now in dialysis. RN to change dressings of xeroform gauze and kerlix when she returns. Patient is to have angio tomorrow with possible surgical intervention, therefore wound care will see patient on Friday following her procedures with Dr. Scott.
[2021-02-06] MEDS: ONDANSETRON ODT 4 MG TAB.RAPDIS. PO PRN (15:18)
[2021-02-06 15:30] VITALS: BP 92/39
[2021-02-06] MEDS ORDERED: CEFEPIME HCL IV Push 2 GM VIAL. IVP SCH (16:00)
[2021-02-06] MEDS: IV DEXTROSE 5% 1,000 ML IV SCH (17:30)
[2021-02-06] MEDS: VANCOMYCIN 500 MG in IV NORMAL SALINE 100ML 100 ML IV SCH (17:35)
[2021-02-06 19:00] VITALS: BP 77/32
[2021-02-06] MEDS: LATANOPROST 0.005% OPHTH SOLUTION 2.5ML BOTTLE. OU SCH (21:00)
[2021-02-06] MEDS: ATORVASTATIN CALCIUM 40 MG TABLET. PO SCH (21:41)
[2021-02-06 23:00] VITALS: BP 102/35
[2021-02-07] VITALS (11 sets, daily range): BP systolic 62–113; BP diastolic 26–42
[2021-02-07] MEDS: LEVOTHYROXINE 100 MCG TABLET PO SCH (06:00)
[2021-02-07] MEDS: fentaNYL PF VIAL 100 MCG/2 ML VIAL IVP PRN (06:28)
[2021-02-07] MEDS: PANTOPRAZOLE 40 MG TABLET.DR. PO SCH (07:30)
[2021-02-07] MEDS: MIDODRINE 2.5 MG TABLET PO SCH ×3 (08:00→17:57)
[2021-02-07] MEDS: CALCIUM CARBONATE 500 MG TABLET PO SCH ×2 (08:00→17:00)
[2021-02-07] MEDS: FERROUS SULFATE 325 MG TABLET. PO SCH (08:00)
[2021-02-07] MEDS ORDERED: IODIXANOL 320 MG/ML 100 ML VIAL. ONE (08:10)
[2021-02-07] MEDS ORDERED: LIDOCAINE 1% Multi-Dose 20 ML VIAL. ONE (08:10)
[2021-02-07] MEDS ORDERED: fentaNYL PF VIAL 100 MCG/2 ML VIAL ONE ×2 (08:20→10:14)
[2021-02-07] MEDS ORDERED: MIDAZOLAM HCL/PF 2 MG/2 ML VIAL. ONE (08:20)
[2021-02-07] MEDS ORDERED: HEPARIN for IV BOLUS 10,000 UNIT/10 ML VIAL. ONE (08:22)
[2021-02-07] MEDS ORDERED: IODIXANOL 320 MG/ML 100 ML VIAL. IART ONE (08:30)
[2021-02-07] MEDS: MIDAZOLAM HCL/PF 2 MG/2 ML VIAL. IV ONE ×2 (08:30→09:44)
[2021-02-07] MEDS ORDERED: LIDOCAINE 1% Multi-Dose 20 ML VIAL. INJ ONE (08:30)
[2021-02-07] MEDS ORDERED: fentaNYL PF VIAL 100 MCG/2 ML VIAL IV ONE (08:30)
--- NOTE | 2021-02-07 08:43 | PHYS DOC ---
MODERATE SEDATION ASSESSMENT RISKS/ALTERNATIVES Risks/Alternatives Risks and alternatives of this type of sedation and procedure discussed with: RISK/ALTERNATIVES: Patient H & P ON CHART H & P H & P on chart and reviewed for co-morbid conditions and appropriate labs. H&P ON CHART: Yes STATUS PREG STATUS ASSESSED: Yes MEDS/ALLERGIES REVIEWED Meds/Allergies Reviewed Medications and Allergies including time and route of recently administered narcotics and sedatives. MEDS/ALLERGIES REVIEWED: Yes ASA RATING ASA RATING: III AIRWAY ASSESSMENT Airway Assessment Airway patency, oral function limitations, presence of caps, crowns, dentures, partials, and ability to extend neck assessed. AIRWAY ASSESSMENT: Yes MALLAMPATI SCORE MALLAMPATI SCORE: II PRE-SEDATION ASSESSMENT PRE-SEDATION ASSESSMENT: Yes (PLAN FOR VERSED/FENTANYL FOR SEDATION) COCO CASON MD Feb 07, 2021 08:43
[2021-02-07] MEDS ORDERED: NITROGLYCERIN 200 MCG/2 ML SYRINGE FOR CATH/VASC LAB. ONE (08:44)
[2021-02-07] MEDS ORDERED: CONTRAST GIVEN. MC PRN (08:45)
--- NOTE | 2021-02-07 08:47 | PDOC ---
PROGRESS NOTES Date of Service DATE: 02/07/21 TIME: 08:43 Subjective Subjective No personal or family hx of complications with anesthesia/sedation. Toelrated sedation well in past. reports severe pain in right foot. Objective Objective Vital Signs Date Time Temp Pulse Resp B/P (MAP) Pulse Ox O2 Delivery O2 Flow Rate FiO2 02/07/21 07:20 97.9 62 18 88/34 (52) 98 Nasal Cannula 2.0 97.9 Intake and Output 02/07/21 07:00 Intake Total 60 ml Output Total 1 ml Balance 59 ml Intake Oral 60 ml Output Urine Total 1 ml # Voids 1 # Bowel Movements 1 Physical Exam Physical Exam SKIN: Right 5th toe amputation site non healing with evidence of dry gangrene and necrosis of subcutaneous tissues. Heel ulceration as well on right is nonhealing CV: RRR RESP: NC in place, nonlabored respiration Assessment Assessment Problems Medical Problems: (1) End stage kidney disease Status: Acute (2) Leukocytosis Status: Acute (3) Right foot infection Status: Acute 4 Plan Plan of Care 4. Non healing wounds s/p 5th toe amputation and heel debridement right foot 5. Peripheral arterial disease Will proceed with right le angiography and possible intervention. Explained to patient that she is likely to require BKA unless there can be significant improvement in arterial flow with intervention. Previously she has received contrast for these interventions without issue. Comment Review of Relevant I have reviewed the following items mimi (where applicable) has been applied. Labs Laboratory Tests Test 02/05/21 11:06 02/05/21 21:33 02/06/21 04:25 02/06/21 07:06 Glucose (Fingerstick) 73 mg/dL (70-99) 79 mg/dL (70-99) 107 mg/dL (70-99) Sodium Level 139 mmol/L (136-145) Potassium Level 3.4 mmol/L (3.5-5.1) Chloride Level 102 mmol/L (98-107) Carbon Dioxide Level 26 mmol/L (21-32) Anion Gap 11 (6-14) Blood Urea Nitrogen 36 mg/dL (7-20) Creatinine 5.5 mg/dL (0.6-1.0) Estimated GFR (Cockcroft-Gault) 7.8 Glucose Level 62 mg/dL (70-99) Calcium Level 7.5 mg/dL (8.5-10.1) Test 02/06/21 16:07 02/06/21 17:38 02/06/21 20:39 02/07/21 07:53 Glucose (Fingerstick) 68 mg/dL (70-99) 89 mg/dL (70-99) 97 mg/dL (70-99) 70 mg/dL (70-99) Laboratory Tests Test 02/06/21 16:07 02/06/21 17:38 02/06/21 20:39 02/07/21 07:53 Glucose (Fingerstick) 68 mg/dL (70-99) 89 mg/dL (70-99) 97 mg/dL (70-99) 70 mg/dL (70-99) Microbiology 02/01/21 Blood Culture - Final, Complete NO GROWTH AFTER 5 DAYS Medications Current Medications Piperacillin Sod/ Tazobactam Sod 4.5 gm/Sodium Chloride 100 ml @ 200 mls/hr 1X ONCE IV Last administered on 02/01/21at 18:10; Start 02/01/21 at 17:45; Stop 02/01/21 at 18:14; Status DC Vancomycin HCl (Vanco Per Pharmacy) 1 each 1X ONCE MC Last administered on 02/01/21at 17:45; Start 02/01/21 at 17:45; Stop 02/01/21 at 18:06; Status DC Morphine Sulfate (Morphine Sulfate) 2 mg PRN Q15MIN PRN IV/SQ PAIN GREATER THAN 3/10; Start 02/01/21 at 17:45; Stop 02/02/21 at 17:45; Status DC Vancomycin HCl 250 ml @ 250 mls/hr 1X ONCE IV Last administered on 02/01/21at 19:56; Start 02/01/21 at 18:15; Stop 02/01/21 at 19:14; Status DC Ondansetron HCl (Zofran) 4 mg PRN Q8HRS PRN IVP NAUSEA/VOMITING; Start 02/01/21 at 20:30; Stop 02/02/21 at 20:29; Status DC Fentanyl Citrate (Fentanyl 2ml Vial) 50 mcg PRN Q1HR PRN IVP PAIN Last administered on 02/02/21at 17:42; Start 02/01/21 at 20:30; Stop 02/02/21 at 20: 29; Status DC Clopidogrel Bisulfate (Plavix) 75 mg DAILYWBKFT PO ; Start 02/02/21 at 08:00; Stop 02/03/21 at 13:24; Status DC Aspirin (Ecotrin) 81 mg DAILYWBKFT PO ; Start 02/02/21 at 08:00; Stop 02/03/21 at 13:33; Status DC Piperacillin Sod/ Tazobactam Sod 2.25 gm/Sodium Chloride 50 ml @ 100 mls/hr Q8HRS IV Last administered on 02/05/21at 05:53; Start 02/02/21 at 09:00; Stop 02/05/21 at 15:15; Status DC Vancomycin HCl (Vanco Per Pharmacy) 1 each PRN DAILY PRN MC SEE COMMENTS Last administered on 02/06/21at 11:50; Start 02/02/21 at 08:30 Dextrose (Dextrose 50%-Water Syringe) 25 gm STK-MED ONCE IV ; Start 02/02/21 at 08:40; Stop 02/02/21 at 08:40; Status DC Dextrose (Dextrose 50%-Water Syringe) 12.5 gm PRN Q15MIN PRN IV SEE COMMENTS Last administered on 02/02/21at 13:04; Start 02/02/21 at 09:00 Fentanyl Citrate (Fentanyl 2ml Vial) 25 mcg PRN Q5MIN PRN IVP MILD PAIN 1-3; Start 02/02/21 at 10:00; Stop 02/02/21 at 20:00; Status DC Fentanyl Citrate (Fentanyl 2ml Vial) 50 mcg PRN Q5MIN PRN IVP MODERATE PAIN 4- 6; Start 02/02/21 at 10:00; Stop 02/02/21 at 20:00; Status DC Morphine Sulfate (Morphine Sulfate) 1 mg PRN Q10MIN PRN IVP SEVERE PAIN 7-10; Start 02/02/21 at 10:00; Stop 02/02/21 at 20:00; Status DC Ringer's Solution 1,000 ml @ 30 mls/hr Q24H IV ; Start 02/02/21 at 10:00; Stop 02/02/21 at 21:59; Status DC Hydromorphone HCl (Dilaudid) 0.5 mg PRN Q10MIN PRN IVP SEVERE PAIN 7-10, 2nd CHOICE; Start 02/02/21 at 10:00; Stop 02/03/21 at 09:59; Status DC Prochlorperazine Edisylate (Compazine) 5 mg PACU PRN PRN IVP NAUSEA, MRX1; Start 02/02/21 at 10:00; Stop 02/02/21 at 20:00; Status DC Fentanyl Citrate (Fentanyl 2ml Vial) 25 mcg PRN Q5MIN PRN IVP MILD PAIN 1-3; Start 02/02/21 at 10:00; Stop 02/03/21 at 09:59; Status Cancel Fentanyl Citrate (Fentanyl 2ml Vial) 50 mcg PRN Q5MIN PRN IVP MODERATE PAIN 4- 6; Start 02/02/21 at 10:00; Stop 02/03/21 at 09:59; Status UNV Morphine Sulfate (Morphine Sulfate) 1 mg PRN Q10MIN PRN IVP SEVERE PAIN 7-10; Start 02/02/21 at 10:00; Stop 02/03/21 at 09:59; Status UNV Ringer's Solution 1,000 ml @ 30 mls/hr Q24H IV ; Start 02/02/21 at 10:00; Stop 02/02/21 at 21:59; Status UNV Hydromorphone HCl (Dilaudid) 0.5 mg PRN Q10MIN PRN IVP SEVERE PAIN 7-10, 2nd CHOICE; Start 02/02/21 at 10:00; Stop 02/03/21 at 09:59; Status UNV Prochlorperazine Edisylate (Compazine) 5 mg PACU PRN PRN IVP NAUSEA, MRX1; Start 02/02/21 at 10:00; Stop 02/03/21 at 09:59; Status UNV Epoetin Galileo-epbx (RETACRIT for ESRD PTS) 10,000 unit MoWeFr@2100 SQ Last administered on 02/05/21at 21:36; Start 02/02/21 at 21:00 Vancomycin HCl (Vancomycin Random Level) 1 each 1X ONCE MC ; Start 02/03/21 at 05:00; Stop 02/03/21 at 05:01; Status DC Dextrose 1,000 ml @ 50 mls/hr Q20H IV Last administered on 02/05/21at 06:05; Start 02/02/21 at 13:30 Propofol (Diprivan) 200 mg STK-MED ONCE IV ; Start 02/02/21 at 13:39; Stop 02/02/21 at 13:39; Status DC Lidocaine HCl (Lidocaine Pf 2% Vial) 5 ml STK-MED ONCE .ROUTE ; Start 02/02/21 at 13:39; Stop 02/02/21 at 13:39; Status DC Fentanyl Citrate (Fentanyl 2ml Vial) 100 mcg STK-MED ONCE .ROUTE ; Start 02/02/21 at 13:39; Stop 02/02/21 at 13:39; Status DC Phenylephrine HCl (PHENYLEPHRINE in 0.9% NACL PF) 1 mg STK-MED ONCE IV ; Start 02/02/21 at 13:40; Stop 02/02/21 at 13:40; Status DC Sodium Chloride 1,000 ml @ 0 mls/hr Q0M IV Last administered on 02/02/21at 15:57; Start 02/02/21 at 14:00; Stop 02/03/21 at 15:10; Status DC Ephedrine Sulfate (ePHEDrine PF IN SALINE SYRINGE) 50 mg STK-MED ONCE IV ; Start 02/02/21 at 15:00; Stop 02/02/21 at 15:00; Status DC Ondansetron HCl (Zofran) 4 mg STK-MED ONCE .ROUTE ; Start 02/02/21 at 15:09; Stop 02/02/21 at 15:09; Status DC Dexamethasone Sodium Phosphate (Decadron) 4 mg STK-MED ONCE .ROUTE ; Start 02/02/21 at 15:09; Stop 02/02/21 at 15:09; Status DC Desflurane (Suprane) 30 ml STK-MED ONCE IH ; Start 02/02/21 at 15:09; Stop 02/02/21 at 15:10; Status DC Sevoflurane (Ultane) 30 ml STK-MED ONCE IH ; Start 02/02/21 at 15:09; Stop 02/02/21 at 15:10; Status DC Sodium Chloride 1,000 ml @ 750 mls/hr 1X ONCE IV Last administered on at 15:30; Start 02/02/21 at 15:30; Stop 02/02/21 at 16:49; Status DC Fentanyl Citrate (Fentanyl 2ml Vial) 50 mcg PRN Q1HR PRN IVP SEVERE PAIN 7-10 Last administered on 02/07/21at 06:28; Start 02/02/21 at 21:45 Sodium Chloride 1,000 ml @ 1,000 mls/hr Q1H PRN IV hypotension; Start 02/03/21 at 07:30; Stop 02/03/21 at 13:29; Status DC Sodium Chloride 1,000 ml @ 400 mls/hr Q2H30M PRN IV PATENCY; Start 02/03/21 at 07:30; Stop 02/03/21 at 19:29; Status DC Info (PHARMACY MONITORING -- do not chart) 1 each PRN DAILY PRN MC SEE COMMENTS; Start 02/03/21 at 07:30 Vancomycin HCl 1 gm/Sodium Chloride 250 ml @ 250 mls/hr 1X ONCE IV Last administered on 02/03/21at 16:55; Start 02/03/21 at 16:00; Stop 02/03/21 at 16:59; Status DC Vancomycin HCl 500 mg/Sodium Chloride 100 ml @ 100 mls/hr QTUTHSA IV Last administered on 02/06/21at 17:35; Start 02/06/21 at 16:00 Acetaminophen (Tylenol) 650 mg PRN Q6HRS PRN PO MILD PAIN / TEMP > 100.3'F; Start 02/03/21 at 13:30 Allopurinol (Zyloprim) 100 mg DAILY PO Last administered on 02/06/21at 08:13; Start 02/03/21 at 14:00 Anastrozole (Arimidex) 1 mg DAILY PO Last administered on 02/06/21at 08:19; Start 02/03/21 at 14:00 Aspirin (Ecotrin) 81 mg DAILY PO Last administered on 02/06/21at 08:13; Start 02/04/21 at 09:00 Atorvastatin Calcium (Lipitor) 80 mg HS PO Last administered on 02/06/21at 21:41; Start 02/03/21 at 21:00 Calcium Carbonate/ Glycine (Oscal) 750 mg BIDWMEALS PO Last administered on 02/04/21at 08:05; Start 02/03/21 at 17:00 Clopidogrel Bisulfate (Plavix) 75 mg DAILY PO Last administered on 02/06/21at 08:13; Start 02/04/21 at 09:00 Ferrous Sulfate (Feosol) 325 mg DAILYWBKFT PO Last administered on 02/06/21at 08:13; Start 02/03/21 at 14:00 Furosemide (Lasix) 80 mg DAILY PO Last administered on 02/05/21at 09:47; Start 02/03/21 at 14:00 Insulin Human Regular (HumuLIN R VIAL) 100 unit TIDAC SQ ; Start 02/03/21 at 16:30; Stop 02/03/21 at 13:32; Status DC Methocarbamol (Robaxin) 500 mg PRN Q8HRS PRN PO MUSCLE SPASMS; Start 02/03/21 at 13:30; Stop 02/06/21 at 07:54; Status DC Midodrine (Proamatine) 2.5 mg TID PO ; Start 02/03/21 at 14:00; Stop 02/03/21 at 15:13; Status DC Pantoprazole Sodium (Protonix) 40 mg DAILYAC PO Last administered on 02/06/21at 05:28; Start 02/03/21 at 14:00 Polyethylene Glycol (miraLAX PACKET) 17 gm PRN DAILY PRN PO CONSTIPATION, 1ST CHOICE; Start 02/03/21 at 13:30 Pramipexole Dihydrochloride (miraPEX) 0.5 mg DAILY PO Last administered on 02/05/21at 09:47; Start 02/03/21 at 14:00 Pramipexole Dihydrochloride (miraPEX) 0.25 mg DAILY PO ; Start 02/04/21 at 09:00; Status UNV Senna/Docusate Sodium (Senna Plus) 1 tab DAILY PO Last administered on 02/06/21at 08:13; Start 02/03/21 at 14:00 Sodium Bicarbonate (Sodium Bicarbonate) 650 mg TID PO Last administered on 02/06/21at 21:40; Start 02/03/21 at 14:00 Non-Formulary Medication (Amlodipine Besylate/ Benazepril (Amlodipine-Benazepril 5-20 Mg)) 1 cap DAILY PO ; Start 02/04/21 at 09:00; Status UNV Insulin Glargine (Lantus Syringe) 10 unit QHS SQ Last administered on 02/04/21at 22:36; Start 02/03/21 at 21:00; Stop 02/06/21 at 07:54; Status DC Levothyroxine Sodium (Synthroid) 200 mcg DAILY06 PO Last administered on 02/06/21 05:28; Start 02/03/21 at 14:00 Non-Formulary Medication (Omeprazole Magnesium (Prilosec Otc)) 1 tab DAILY PO ; Start 02/04/21 at 09:00; Status UNV Ondansetron HCl (Zofran Odt) 4 mg Q6HRS PRN PO NAUSEA/VOMITING Last administered on 02/06/21 15:18; Start 02/03/21 at 13:45 Oxycodone HCl (Roxicodone) 5 mg PRN Q6HRS PRN PO MODERATE PAIN 4-6 Last administered on 02/06/21 17:35; Start 02/03/21 at 13:30 Non-Formulary Medication (Pregabalin (Lyrica)) 150 mg Q3DAYS PO ; Start 02/06/21 at 09:00; Status UNV Latanoprost (Xalatan) 1 drop QHS OU Last administered on 02/05/21 21:32; Start 02/03/21 at 21:00 Sennosides (Senna) 8.6 mg PRN BID PRN PO CONSTIPATION, 2ND CHOICE Last administered on 02/03/21 15:58; Start 02/03/21 at 13:30 Amlodipine Besylate (Norvasc) 5 mg DAILY PO Last administered on 02/05/21 09:46; Start 02/03/21 at 14:00 Lisinopril (Prinivil) 20 mg DAILY PO Last administered on 02/05/21 09:45; Start 02/03/21 at 14:00 Oxycodone HCl (Roxicodone) 5 mg PRN Q6HRS PRN PO PAIN; Start 02/03/21 at 14:15; Status UNV Midodrine (Proamatine) 2.5 mg TID@0800,1300,1800 PO Last administered on 02/06/21 17:35; Start 02/03/21 at 18:00 Lactobacillus Rhamnosus (Culturelle) 1 cap BID PO Last administered on 02/06/21 21:40; Start 02/05/21 at 12:00 Cefepime HCl (Maxipime) 2 gm QTU IVP Last administered on 10/12/21at 17:49; Start 02/06/21 at 16:00 Cefepime HCl (Maxipime) 2 gm QTH IVP ; Start 02/08/21 at 16:00 Cefepime HCl (Maxipime) 3 gm QSA IVP ; Start 02/10/21 at 16:00 Midodrine (Proamatine) 5 mg PRN DAILY PRN PO hypotension SBP < 90 Last administered on 02/06/21at 11:59; Start 02/06/21 at 08:15 Sodium Chloride 1,000 ml @ 1,000 mls/hr Q1H PRN IV hypotension; Start 02/06/21 at 08:30; Stop 02/06/21 at 14:29; Status DC Sodium Chloride 1,000 ml @ 400 mls/hr Q2H30M PRN IV PATENCY; Start 02/06/21 at 08:30; Stop 02/06/21 at 20:29; Status DC Info (PHARMACY MONITORING -- do not chart) 1 each PRN DAILY PRN MC SEE COMMENTS; Start 02/06/21 at 08:30; Status UNV Info (PHARMACY MONITORING -- do not chart) 1 each PRN DAILY PRN MC SEE COMMENTS; Start 02/06/21 at 08:30; Status UNV Lidocaine HCl (Lidocaine 1% 20ml Vial) 20 ml STK-MED ONCE .ROUTE ; Start 02/07/21 at 08:10; Stop 02/07/21 at 08:11; Status DC Iodixanol (Visipaque 320) 100 ml STK-MED ONCE .ROUTE ; Start 02/07/21 at 08:10; Stop 02/07/21 at 08:11; Status DC Heparin Sodium/ Sodium Chloride 1,000 ml @ As Directed STK-MED ONCE .ROUTE ; Start 02/07/21 at 08:10; Stop 02/07/21 at 08:11; Status DC Midazolam HCl (Versed) 2 mg STK-MED ONCE .ROUTE ; Start 02/07/21 at 08:20; Stop 02/07/21 at 08:20; Status DC Fentanyl Citrate (Fentanyl 2ml Vial) 100 mcg STK-MED ONCE .ROUTE ; Start 02/07/21 at 08:20; Stop 02/07/21 at 08:20; Status DC Heparin Sodium (Porcine) (Heparin Sodium) 10,000 unit STK-MED ONCE .ROUTE ; Start 02/07/21 at 08:22; Stop 02/07/21 at 08:23; Status DC Heparin Sodium/ Sodium Chloride (HEPARIN for ARTERIAL LINE FLUSH) 1,000 unit 1X ONCE IART ; Start 02/07/21 at 08:30; Stop 02/07/21 at 08:31; Status DC Heparin Sodium/ Sodium Chloride (HEPARIN for ARTERIAL LINE FLUSH) 1,000 unit 1X ONCE IART ; Start 02/07/21 at 08:30; Stop 02/07/21 at 08:31; Status DC Midazolam HCl (Versed) 2 mg 1X ONCE IV ; Start 02/07/21 at 08:30; Stop 02/07/21 at 08:31; Status DC Fentanyl Citrate (Fentanyl 2ml Vial) 100 mcg 1X ONCE IV ; Start 02/07/21 at 08:30; Stop 02/07/21 at 08:31; Status DC Iodixanol (Visipaque 320) 100 ml 1X ONCE IART ; Start 02/07/21 at 08:30; Stop 02/07/21 at 08:31; Status DC Lidocaine HCl (Lidocaine 1% 20ml Vial) 20 ml 1X ONCE INJ ; Start 02/07/21 at 08:30; Stop 02/07/21 at 08:31; Status DC Info (CONTRAST GIVEN -- Rx MONITORING) 1 each PRN DAILY PRN MC SEE COMMENTS; Start 02/07/21 at 08:45; Stop 02/09/21 at 08:44 Active Scripts Active Feosol (Ferrous Sulfate) 325 Mg Tablet 325 Mg PO DAILYWBKFT 30 Days Reported Lasix (Furosemide) 80 Mg Tablet 1 Tab PO DAILY 30 Days Humalog (Insulin Lispro) 100 Unit/1 Ml Vial 100 Unit SQ TIDAC Travatan Z (Travoprost) 5 Ml Drops 1 Drop EACHEYE DAILY Zofran (Ondansetron Hcl) 4 Mg Tablet 1 Tab PO Q6HRS Senna-Docusate Sodium Tablet (Sennosides/Docusate Sodium) 1 Each Tablet 1 Tab PO DAILY 20 Days Renaplex-D Tablet (B,C/Folic/Zinc/Selenometh/D3/E) 1 Each Tablet 1 Each PO DAILY Clopidogrel (Clopidogrel Bisulfate) 75 Mg Tablet 1 Tab PO DAILY Protonix (Pantoprazole Sodium) 40 Mg Tablet.dr 40 Mg PO DAILYAC Oxycodone Hcl 5 Mg Capsule 5 Mg PO PRN Q6HRS PRN Mirapex (Pramipexole Di-Hcl) 0.25 Mg Tablet 0.5 Mg PO DAILY Miralax (Polyethylene Glycol 3350) 17 Gm Powd.pack 1 Packet PO DAILY PRN 2 Days dissolve in water Midodrine Hcl 2.5 Mg Tablet 2.5 Mg PO TID Methocarbamol 500 Mg Tablet 500 Mg PO PRN Q8HRS D3-50 (Cholecalciferol (Vitamin D3)) 50,000 Unit Capsule 1,000 Unit PO DAILY Calcium Carbonate 500 Mg Tablet 750 Mg PO BID Calcium Acetate 667 Mg Tablet 2 Tab PO DAILY 30 Days Arimidex (Anastrozole) 1 Mg Tablet 1 Tab PO DAILY 30 Days Allopurinol 100 Mg Tablet 1 Tab PO DAILY Acetaminophen 325 Mg Tablet 2 Tab PO PRN Q6HRS PRN 30 Days Prilosec Otc (Omeprazole Magnesium) 20 Mg Tablet.dr 1 Tab PO DAILY Calcium 500 + D Tablet (Calcium Carbonate/Vitamin D3) 1 Each Tablet 1 Each PO DAILY Levothyroxine Sodium 200 Mcg Tablet 200 Mcg PO DAILYAC Tresiba Flextouch U-200 (Insulin Degludec) 200 Unit/1 Ml Insuln.pen 10 Unit SQ HS Lyrica (Pregabalin) 150 Mg Capsule 150 Mg PO Q3DAYS 30 Days Amlodipine-Benazepril 5-20 Mg (Amlodipine Besylate/Benazepril) 1 Each Capsule 1 Cap PO DAILY Sodium Bicarbonate 650 Mg Tablet 650 Mg PO TID Mirapex (Pramipexole Di-Hcl) 0.25 Mg Tablet 1 Tab PO DAILY Aspir 81 (Aspirin) 81 Mg Tablet.dr 81 Mg PO Atorvastatin Calcium 40 Mg Tablet 80 Mg PO HS Vitals/I & O Vital Sign - Last 24 Hours 02/06/21 02/06/21 02/06/21 02/06/21 11:59 15:15 15:30 17:35 Temp 98.8 98.8 Pulse 59 59 73 Resp 10 B/P (MAP) 64/39 64/39 92/39 (56) Pulse Ox 98 O2 Delivery Nasal Cannula Room Air O2 Flow Rate 2.0 02/06/21 02/06/21 02/06/21 02/06/21 17:35 18:05 19:00 20:00 Temp 98.0 98.0 Pulse 73 60 Resp 18 B/P (MAP) 92/39 77/32 (47) Pulse Ox 98 O2 Delivery Room Air Room Air Room Air 02/06/21 02/07/21 02/07/21 02/07/21 23:00 03:00 06:28 07:20 Temp 98.6 97.5 97.9 98.6 97.5 97.9 Pulse 56 53 62 Resp 16 18 20 18 B/P (MAP) 102/35 (57) 113/26 (55) 88/34 (52) Pulse Ox 92 99 99 98 O2 Delivery Nasal Cannula Nasal Cannula Nasal Cannula Nasal Cannula O2 Flow Rate 2.0 2.0 2.0 2.0 Intake and Output 02/06/21 02/06/21 02/07/21 15:00 23:00 07:00 Intake Total 60 ml Output Total 1 ml Balance -1 ml 60 ml Justifications for Admission Other Justification COCO CASON MD Feb 07, 2021 08:47
[2021-02-07] MEDS: LISINOPRIL 20 MG TABLET PO SCH (09:00)
[2021-02-07] MEDS: FUROSEMIDE 80 MG TABLET. PO SCH (09:00)
[2021-02-07] MEDS: PRAMIPEXOLE 0.25 MG TABLET. PO SCH (09:00)
[2021-02-07] MEDS: ANASTROZOLE 1 MG TABLET PO SCH (09:00)
[2021-02-07] MEDS: ASPIRIN ENTERIC COATED 81 MG TABLET.DR. PO SCH (09:00)
[2021-02-07] MEDS: CLOPIDOGREL BISULFATE 75 MG TABLET PO SCH (09:00)
[2021-02-07] MEDS: LACTOBACILLUS RHAMNOSUS GG 1 CAPSULE. PO SCH ×2 (09:00→21:26)
[2021-02-07] MEDS: SODIUM BICARBONATE 650 MG TABLET. PO SCH ×3 (09:00→21:25)
[2021-02-07] MEDS: ALLOPURINOL 100 MG TABLET. PO SCH (09:00)
[2021-02-07] MEDS: SENNOSIDES/DOCUSATE 8.6/50MG TABLET. PO SCH (09:00)
--- NOTE | 2021-02-07 09:33 | PDOC ---
Infectious Disease Note Subjective Subjective Patient is feeling good ROS ROS No nausea vomiting diarrhea Vital Sign Vital Signs Vital Signs Date Time Temp Pulse Resp B/P (MAP) Pulse Ox O2 Delivery O2 Flow Rate FiO2 02/07/21 07:20 97.9 62 18 88/34 (52) 98 Nasal Cannula 2.0 97.9 Physical Exam PHYSICAL EXAM GENERAL: Alert and oriented x 3 female, lying in bed comfortably, in no acute distress. HEENT: Normocephalic, atraumatic and anicteric. No thrush. Oral mucosa moist. NECK: Supple. LUNGS: Clear bilaterally. No wheezing. HEART: S1, S2. No murmurs. ABDOMEN: Soft, nontender, and nondistended. EXTREMITIES: Right foot wound seen,, large , deep, slightly necrotic edges Left foot no acute change BACK: Reveals normal curvature. No CVA tenderness. NEUROLOGIC: Alert and oriented x 3, grossly nonfocal. PSYCHIATRIC: Calm and cooperative. Labs Lab Laboratory Tests Test 02/06/21 16:07 02/06/21 17:38 02/06/21 20:39 02/07/21 07:53 Glucose (Fingerstick) 68 mg/dL (70-99) 89 mg/dL (70-99) 97 mg/dL (70-99) 70 mg/dL (70-99) Micro Microbiology 02/01/21 Blood Culture - Preliminary, Resulted NO GROWTH AFTER 3 DAYS Objective Assessment 1. Right fifth toe gangrene with right lateral and right heel wounds. Ray amputation of the right fifth toe including the metatarsal head I and D of the right heel February 02, 2021 Cultures not available 2. Peripheral vascular disease, status post angioplasty at on 01/16/2021. 3. End-stage renal disease, on hemodialysis. 4. Diabetes with neuropathy. 5. Protein-calorie malnutrition. 6. Abnormal LFTs. 7. Anemia. Plan Plan of Care Angiogram today Wound care as directed Monitor labs and cultures continue supportive care once vascular ok to d/c , vanc and cefepime through HD STEVE AGUILAR MD Feb 07, 2021 09:33
[2021-02-07] MEDS: HEPARIN for IV BOLUS 10,000 UNIT/10 ML VIAL. IV ONE ×2 (09:50→10:00)
--- NOTE | 2021-02-07 10:52 | PDOC ---
Renal-Progress Notes Subjective Notes Notes NO NEW COMPLAINTS History of Present Illness Hx of present illness STABLE Vitals Vitals Vital Signs Date Time Temp Pulse Resp B/P (MAP) Pulse Ox O2 Delivery O2 Flow Rate FiO2 02/07/21 07:20 97.9 62 18 88/34 (52) 98 Nasal Cannula 2.0 97.9 Weight Weight [ ] I.O. Intake and Output Intake and Output 02/07/21 07:00 Intake Total 60 ml Output Total 1 ml Balance 59 ml Intake Oral 60 ml Output Urine Total 1 ml # Voids 1 # Bowel Movements 1 Labs Labs Laboratory Tests Test 02/06/21 16:07 02/06/21 17:38 02/06/21 20:39 02/07/21 07:53 Glucose (Fingerstick) 68 mg/dL (70-99) 89 mg/dL (70-99) 97 mg/dL (70-99) 70 mg/dL (70-99) Test 02/07/21 10:04 Activated Clotting Time 308 sec (92-181) Micro Micro Microbiology 02/01/21 Blood Culture - Final, Complete NO GROWTH AFTER 5 DAYS Review of Systems Constitutional: yes: weakness, alert Eyes: Yes: no symptom reported Pulmonary: Yes no symptom reported Cardiovascular: Yes no symptom reported Gastrointestional: Yes: constipation Genitourinary: Yes: no symptom reported Musculoskeletal: Yes: foot pain Skin: Yes no symptom reported Psychiatric/Neurological: Yes: no symptom reported Endocrine: Yes: no symptom reported Hematologic/Lymphatic: Yes: no symptom reported Physical Exam General Appearance: no apparent distress Skin: warm Respiratory: bilateral CTA Heart: S1S2 Abdomen: soft, bowel sounds present Genitourinary: bladder flat Extremities: pulses present, atrophy Neurology: alert, oriented Assessment Assessment IMP ESRD ANEMIA DM II HTN R FOOT TOE GANGRENE-S/P RAY AMP 5TH TOE PLAN HD TOMORROW ANTIBIOTICS CONT ANNIA WILL FOLLOW CHUYITA TINAJERO MD Feb 07, 2021 10:52
[2021-02-07] MEDS ORDERED: PROTAMINE 50 MG/5 ML VIAL. IV ONE ×2 (11:10→11:15)
--- NOTE | 2021-02-07 11:59 | PDOC ---
BRIEF OPERATIVE NOTE Date: Feb 07, 2021 Pre-Op Diagnosis 1. Diabetes mellitus with complication of nephropathy on dialysis 2. Peripheral arterial disease 3. Right foot nonhealing 5th toe amputation and heel ulceration Post-Op Diagnosis Same Procedure Performed 1. Right lower extremity angiography 2. Ultrasound guided access right common femoral artery 3. Angioplasty right superficial femoral artery to 4mm 4. Moderate sedation, physician supervised 120 minutes Surgeon hailey Scott [employer] Clerk None Anesthesia Type: Conscious Sedation Findings Patent revascualrization to AT. Attempted antegrade wire escalation to restore flow through peroneal but despite multiple maneuvers was unsuccessful. There is no reconstitution of the plantar vessels. There was severe stenosis of the right SFA treated with POBA to optimize chances of healing below knee amputation. Complications none Operative Note Will be bedrest for 5 hours postprocedure. Mynx device was attempted but was unable to be deployed therefore manual pressure was held after protamine was giv en for a 6 Fr sheath in the right groin. Plan for right below knee amputation tomorrow HAILEY SCOTT MD Feb 07, 2021 11:59
[2021-02-07 12:44] LABS: HEMATOCRIT 26.7 % (36.0-47.0); HEMOGLOBIN 8.2 g/dL (12.0-15.5); RED BLOOD COUNT 2.65 x10^6/uL (3.50-5.40); RED CELL DISTRIBUTION WIDTH 18.2 % (11.5-14.5); WHITE BLOOD COUNT 16.2 x10^3/uL (4.0-11.0)
--- NOTE | 2021-02-07 12:47 | PDOC ---
[employer] PROGRESS NOTE Date of Service DOS: DATE: 02/07/21 TIME: 12:46 Chief Complaint Chief Complaint A/P: Right fifth toe gangrene with right lateral and right heel wounds - s/p Ray amputation of the right fifth toe including the metatarsal head I and D of the right heel February 02, 2021 Peripheral vascular disease, status post angioplasty at on 01/16/2021. End-stage renal disease, on hemodialysis. Diabetes with neuropathy. Protein-calorie malnutrition. Abnormal LFTs. Anemia. History of Present Illness History of Present Illness 02/07, hypotneiosn after angio, will bolus 1 liter and give fludro, Continue IV abx, ID following, on zosyn. [facility] plans limb salvage surg Ms Ruelas is a 65-year-old female with history of diabetes; hypertension; coronary artery disease; CABG; end-stage renal disease, on dialysis; peripheral vascular disease, who underwent angiogram and angioplasty of the right anterior tibial artery at on 01/16/2021 who presented to the ER with complaints of wounds of the right lower extremity for a couple of weeks. She denies any history of injury. Denies fevers, chills, nausea, vomiting, diarrhea, headache, sore throat, difficulty swallowing, shortness of breath, or cough. Vitals/I&O Vitals/I&O: Vital Signs Date Time Temp Pulse Resp B/P (MAP) Pulse Ox O2 Delivery O2 Flow Rate FiO2 02/07/21 12:28 60 62/37 02/07/21 11:26 15 98 Nasal Cannula 3.0 02/07/21 07:20 97.9 97.9 I & O 02/06/21 02/06/21 02/07/21 14:59 22:59 06:59 Intake Total 60 ml Output Total 1 ml Balance -1 ml 60 ml Physical Exam Physical Exam: GENERAL: Alert and oriented x 3 female, lying in bed comfortably, in no acute distress. HEENT: Normocephalic, atraumatic and anicteric. No thrush. Oral mucosa moist. NECK: Supple. LUNGS: Clear bilaterally. No wheezing. HEART: S1, S2. No murmurs. ABDOMEN: Soft, nontender, and nondistended. EXTREMITIES: Right foot wound seen,, large , deep, slightly necrotic edges Left foot no acute change BACK: Reveals normal curvature. No CVA tenderness. NEUROLOGIC: Alert and oriented x 3, grossly nonfocal. PSYCHIATRIC: Calm and cooperative. General: Alert, Oriented X3, Cooperative Heart: Regular rate, Normal S1, Normal S2, No murmurs, Gallops Lungs: Clear Abdomen: Normal bowel sounds, Soft, No tenderness, No hepatosplenomegaly, No masses Extremities: Other Labs Labs: Laboratory Tests Test 02/06/21 16:07 02/06/21 17:38 02/06/21 20:39 02/07/21 07:53 Glucose (Fingerstick) 68 mg/dL (70-99) 89 mg/dL (70-99) 97 mg/dL (70-99) 70 mg/dL (70-99) Test 02/07/21 10:04 02/07/21 12:30 02/07/21 12:37 Activated Clotting Time 308 sec (92-181) White Blood Count 16.2 x10^3/uL (4.0-11.0) Red Blood Count 2.65 x10^6/uL (3.50-5.40) Hemoglobin 8.2 g/dL (12.0-15.5) Hematocrit 26.7 % (36.0-47.0) Mean Corpuscular Volume 101 fL (79-100) Mean Corpuscular Hemoglobin 31 pg (25-35) Mean Corpuscular Hemoglobin Concent 31 g/dL (31-37) Red Cell Distribution Width 18.2 % (11.5-14.5) Platelet Count 196 x10^3/uL (140-400) Glucose (Fingerstick) 74 mg/dL (70-99) Assessment and Plan Assessmemt and Plan Problems Medical Problems: (1) End stage kidney disease Status: Acute (2) Leukocytosis Status: Acute (3) Right foot infection Status: Acute Comment Review of Relevant I have reviewed the following items mimi (where applicable) has been applied. Medications: Current Medications Medications (Trade) Dose Ordered Sig/Michelle Route PRN Reason Start Time Stop Time Status Last Admin Dose Admin Vancomycin HCl 500 mg/Sodium Chloride 100 ml @ 100 mls/hr QTUTHSA IV 02/06/21 16:00 02/06/21 17:35 Cefepime HCl (Maxipime) 2 gm QTU IVP 02/06/21 16:00 02/06/21 17:49 Heparin Sodium/ Sodium Chloride (HEPARIN for ARTERIAL LINE FLUSH) 1,000 unit 1X ONCE IART 02/07/21 08:30 02/07/21 08:31 DC 02/07/21 08:30 Heparin Sodium/ Sodium Chloride (HEPARIN for ARTERIAL LINE FLUSH) 1,000 unit 1X ONCE IART 02/07/21 08:30 02/07/21 08:31 DC 02/07/21 08:30 Midazolam HCl (Versed) 2 mg 1X ONCE IV 02/07/21 08:30 02/07/21 08:31 DC 02/07/21 09:44 Fentanyl Citrate (Fentanyl 2ml Vial) 100 mcg 1X ONCE IV 02/07/21 08:30 02/07/21 08:31 DC 02/07/21 09:14 Iodixanol (Visipaque 320) 100 ml 1X ONCE IART 02/07/21 08:30 02/07/21 08:31 DC 02/07/21 11:16 Lidocaine HCl (Lidocaine 1% 20ml Vial) 20 ml 1X ONCE INJ 02/07/21 08:30 02/07/21 08:31 DC 02/07/21 09:25 Heparin Sodium (Porcine) (Heparin Sodium) 8,000 unit 1X ONCE IV 02/07/21 10:00 02/07/21 10:01 DC 02/07/21 09:50 Protamine Sulfate (Protamine) 50 mg 1X ONCE IV 02/07/21 11:15 02/07/21 11:17 DC 02/07/21 11:12 Sodium Chloride 1,000 ml @ 1,000 mls/hr 1X ONCE IV 02/07/21 13:00 02/07/21 13:59 02/07/21 12:28 Justifications for Admission Other Justification PRETTY TRACY MD Feb 07, 2021 12:47
[2021-02-07] MEDS ORDERED: IV NORMAL SALINE 1000ML BAG 1,000 ML IV ONE (13:00)
[2021-02-07 13:03] LABS: CALCIUM 7.5 mg/dL (8.5-10.1); CREATININE 4.9 mg/dL (0.6-1.0); GFR 8.9; POTASSIUM 3.6 mmol/L (3.5-5.1)
[2021-02-07] MEDS: IV DEXTROSE 5% 1,000 ML IV SCH (13:30)
[2021-02-07] MEDS: MULTIVITAMIN with MINERAL TABLET. PO SCH (15:11)
[2021-02-07] MEDS: FLUDROCORTISONE 0.1 MG TABLET PO SCH (15:11)
--- NOTE | 2021-02-07 15:26 | OP ---
DATE OF SURGERY: 02/07/2021 SURGEON: Taylor Scott MD PREOPERATIVE DIAGNOSES: 1. 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 2. End-stage renal disease, on hemodialysis. 3. Peripheral arterial disease. 4. Nonhealing right fifth toe amputation. 5. Right heel ulceration. POSTOPERATIVE DIAGNOSES: 1. 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 2. End-stage renal disease, on hemodialysis. 3. Peripheral arterial disease. 4. Nonhealing right fifth toe amputation. 5. Right heel ulceration. INDICATIONS: This is a 65-year-old female who has a history of multiple foot amputations of the left lower extremity and angiography and intervention on that side who throughout this year has developed also nonhealing wounds on the right foot. She underwent successful revascularization to anterior tibial artery a month prior at [facility] with atherectomy and angioplasty of the anterior tibial artery. However, she presented with worsening infection of her fifth toe ulceration requiring emergent toe amputation with associated sepsis. This was performed on 02/02. On serial evaluation, there was evidence of nonhealing of the amputation site; therefore, she was consented for repeat angiography with the hopes of improving arterial inflow into the foot to avoid a below-knee amputation. OPERATIVE PROCEDURES PERFORMED: 1. Ultrasound-guided right common femoral artery access. 2. Right lower extremity angiography. 3. Right SFA angioplasty to 4 mm. 4. Moderate sedation, physician supervised 120 minutes. OPERATIVE FINDINGS: The previous anterior tibial artery revascularization was patent with persistent flow into the foot to the dorsalis pedis, but with minimal metatarsal branches filling in visualized. There was no evidence of plantar loop to attempt revascularization. There were no plantar arteries visualized. The SFA had evidence of severe stenosis in the distal SFA, popliteal artery was patent, although there was circumferential calcific disease. There was occlusion of PT, peroneal and tibioperoneal trunk shortly after the origin of the anterior tibial artery. There was no reconstitution of the posterior tibial artery or peroneal artery distally in the ankle or foot. I attempted antegrade wire escalation into the peroneal artery; however, this was unsuccessful with an 0.014 micro catheter and 0.014 wire platform. Therefore, angioplasty was performed of the SFA to optimize her chance of healing a below-knee amputation. DESCRIPTION OF PROCEDURE: The patient was brought to the catheterization lab and placed supine upon the table. The right groin was then prepped and draped in standard sterile fashion. Surgical time-out was performed. Ultrasound-guided access was then obtained with a micropuncture needle in the right common femoral artery in antegrade fashion with the wire immediately passing into the superficial femoral artery without difficulty. AN image of the ultrasound was saved to the medical record. I then was able to place a micropuncture kit into the common femoral into the right SFA and then used a Storq wire to exchange for a 4-Gabonese sheath as I was unable to pass a 5-Gabonese sheath due to the degree of calcium within the common femoral artery at the point of access. The artery was very calcified at the point of access. There was no accessible portion of the common femoral artery that was not calcified circumferentially. Once the 4-Gabonese sheath was in place, I then performed a step angiography of the right lower extremity, which showed severe stenosis of the distal SFA with a patent popliteal artery and a patent anterior tibial artery after recent revascularization with inflow into the dorsalis pedis, but with minimal filling of metatarsal branches and no plantar loop visualized. There was no PT or peroneal visualized. I then exchanged with an 0.035 Storq wire to a 6-Gabonese x 75 cm slender sheath. Prior to doing so, I did administer 8000 units of heparin and confirmed that the ACT was therapeutic. I then using an 0.035 NaviCross for support, telescoped in an 0.018 NaviCross with an 0.014 wire attempted crossing into the peroneal artery. Eventually, the 0.018 NaviCross was unable to track; therefore, I downsized to a Corsair microcatheter and through this used multiple 0.014 wires to attempt recanalization of the peroneal artery, which was visualized as having circumferential calcium. However, I was unable to pass a wire through into the peroneal artery after multiple attempts using a Spartacore wire, a command ES wire and a [place] wire. All of these were unsuccessful at being able to cross antegrade into the peroneal artery. After trying this for approximately 45 minutes, I then aborted attempts at further revascularization. I could not visualize the posterior tibial artery as it was not as severely calcified as the peroneal so I did not attempt to revascularize this artery either. Following this, I then retracted my sheath back into the proximal SFA and repeated angiography. I then performed angioplasty of severe stenosis of the SFA with a 4 mm x 80 mm balloon with a good angiographic result at completion without any evidence of flow-limiting dissection and improved flow to the distal SFA. This was to treat a severe stenosis at the distal SFA. Following this, I then exchanged for a 10 cm 6-Gabonese sheath and then attempted MynxGrip closure device placement; however, the balloon would not retract due to the degree of calcium in the SFA. Therefore, this was aborted and the patient was given 50 mg of protamine. I then held direct manual pressure for 18 minutes with good hemostasis noted. The patient was then transferred back to her inpatient room in stable condition. I should note she was hypotensive throughout the entire procedure, which is her baseline, which limited the amount of sedation that could be given. I did give her 500 mL of normal saline during the procedure for pressure augmentation. The patient was sedated with moderate sedation throughout the procedure with the nurse available for monitoring and administration of medications. The patient was on appropriate cardiac monitoring throughout the entire procedure. A total of 2 mg of Versed and 150 mcg of fentanyl were given throughout the duration of the procedure. SACHIN/SANDRA/THOMAS DR: Kaur TID: [id number]
[2021-02-07] MEDS: VANCOMYCIN PER PHARMACY MC PRN (15:49)
--- NOTE | 2021-02-07 20:42 | PDOC ---
Date and Time #22 IV started left EJ after sterile prep. Good blood return and flushed with 10cc normal saline. OP site dressing Current Medications Current Medications Piperacillin Sod/ Tazobactam Sod 4.5 gm/Sodium Chloride 100 ml @ 200 mls/hr 1X ONCE IV Last administered on 02/01/21at 18:10; Start 02/01/21 at 17:45; Stop 02/01/21 at 18:14; Status DC Vancomycin HCl (Vanco Per Pharmacy) 1 each 1X ONCE MC Last administered on 02/01/21at 17:45; Start 02/01/21 at 17:45; Stop 02/01/21 at 18:06; Status DC Morphine Sulfate (Morphine Sulfate) 2 mg PRN Q15MIN PRN IV/SQ PAIN GREATER THAN 3/10; Start 02/01/21 at 17:45; Stop 02/02/21 at 17:45; Status DC Vancomycin HCl 250 ml @ 250 mls/hr 1X ONCE IV Last administered on 02/01/21at 19:56; Start 02/01/21 at 18:15; Stop 02/01/21 at 19:14; Status DC Ondansetron HCl (Zofran) 4 mg PRN Q8HRS PRN IVP NAUSEA/VOMITING; Start 02/01/21 at 20:30; Stop 02/02/21 at 20:29; Status DC Fentanyl Citrate (Fentanyl 2ml Vial) 50 mcg PRN Q1HR PRN IVP PAIN Last administered on 02/02/21at 17:42; Start 02/01/21 at 20:30; Stop 02/02/21 at 20:29; Status DC Clopidogrel Bisulfate (Plavix) 75 mg DAILYWBKFT PO ; Start 02/02/21 at 08:00; Stop 02/03/21 at 13:24; Status DC Aspirin (Ecotrin) 81 mg DAILYWBKFT PO ; Start 02/02/21 at 08:00; Stop 02/03/21 at 13:33; Status DC Piperacillin Sod/ Tazobactam Sod 2.25 gm/Sodium Chloride 50 ml @ 100 mls/hr Q8HRS IV Last administered on 02/05/21at 05:53; Start 02/02/21 at 09:00; Stop 02/05/21 at 15:15; Status DC Vancomycin HCl (Vanco Per Pharmacy) 1 each PRN DAILY PRN MC SEE COMMENTS Last administered on 02/07/21at 15:49; Start 02/02/21 at 08:30 Dextrose (Dextrose 50%-Water Syringe) 25 gm STK-MED ONCE IV ; Start 02/02/21 at 08:40; Stop 02/02/21 at 08:40; Status DC Dextrose (Dextrose 50%-Water Syringe) 12.5 gm PRN Q15MIN PRN IV SEE COMMENTS Last administered on 02/02/21at 13:04; Start 02/02/21 at 09:00 Fentanyl Citrate (Fentanyl 2ml Vial) 25 mcg PRN Q5MIN PRN IVP MILD PAIN 1-3; Start 02/02/21 at 10:00; Stop 02/02/21 at 20:00; Status DC Fentanyl Citrate (Fentanyl 2ml Vial) 50 mcg PRN Q5MIN PRN IVP MODERATE PAIN 4- 6; Start 02/02/21 at 10:00; Stop 02/02/21 at 20:00; Status DC Morphine Sulfate (Morphine Sulfate) 1 mg PRN Q10MIN PRN IVP SEVERE PAIN 7-10; Start 02/02/21 at 10:00; Stop 02/02/21 at 20:00; Status DC Ringer's Solution 1,000 ml @ 30 mls/hr Q24H IV ; Start 02/02/21 at 10:00; Stop 02/02/21 at 21:59; Status DC Hydromorphone HCl (Dilaudid) 0.5 mg PRN Q10MIN PRN IVP SEVERE PAIN 7-10, 2nd CHOICE; Start 02/02/21 at 10:00; Stop 02/03/21 at 09:59; Status DC Prochlorperazine Edisylate (Compazine) 5 mg PACU PRN PRN IVP NAUSEA, MRX1; Start 02/02/21 at 10:00; Stop 02/02/21 at 20:00; Status DC Fentanyl Citrate (Fentanyl 2ml Vial) 25 mcg PRN Q5MIN PRN IVP MILD PAIN 1-3; Start 02/02/21 at 10:00; Stop 02/03/21 at 09:59; Status Cancel Fentanyl Citrate (Fentanyl 2ml Vial) 50 mcg PRN Q5MIN PRN IVP MODERATE PAIN 4- 6; Start 02/02/21 at 10:00; Stop 02/03/21 at 09:59; Status UNV Morphine Sulfate (Morphine Sulfate) 1 mg PRN Q10MIN PRN IVP SEVERE PAIN 7-10; Start 02/02/21 at 10:00; Stop 02/03/21 at 09:59; Status UNV Ringer's Solution 1,000 ml @ 30 mls/hr Q24H IV ; Start 02/02/21 at 10:00; Stop 02/02/21 at 21:59; Status UNV Hydromorphone HCl (Dilaudid) 0.5 mg PRN Q10MIN PRN IVP SEVERE PAIN 7-10, 2nd CHOICE; Start 02/02/21 at 10:00; Stop 02/03/21 at 09:59; Status UNV Prochlorperazine Edisylate (Compazine) 5 mg PACU PRN PRN IVP NAUSEA, MRX1; Start 02/02/21 at 10:00; Stop 02/03/21 at 09:59; Status UNV Epoetin Galileo-epbx (RETACRIT for ESRD PTS) 10,000 unit MoWeFr@2100 SQ Last administered on 02/05/21at 21:36; Start 02/02/21 at 21:00 Vancomycin HCl (Vancomycin Random Level) 1 each 1X ONCE MC ; Start 02/03/21 at 05:00; Stop 02/03/21 at 05:01; Status DC Dextrose 1,000 ml @ 50 mls/hr Q20H IV Last administered on 02/05/21at 06:05; Start 02/02/21 at 13:30 Propofol (Diprivan) 200 mg STK-MED ONCE IV ; Start 02/02/21 at 13:39; Stop 02/02/21 at 13:39; Status DC Lidocaine HCl (Lidocaine Pf 2% Vial) 5 ml STK-MED ONCE .ROUTE ; Start 02/02/21 at 13:39; Stop 02/02/21 at 13:39; Status DC Fentanyl Citrate (Fentanyl 2ml Vial) 100 mcg STK-MED ONCE .ROUTE ; Start 02/02/21 at 13:39; Stop 02/02/21 at 13:39; Status DC Phenylephrine HCl (PHENYLEPHRINE in 0.9% NACL PF) 1 mg STK-MED ONCE IV ; Start 02/02/21 at 13:40; Stop 02/02/21 at 13:40; Status DC Sodium Chloride 1,000 ml @ 0 mls/hr Q0M IV Last administered on 02/02/21at 15:57; Start 02/02/21 at 14:00; Stop 02/03/21 at 15:10; Status DC Ephedrine Sulfate (ePHEDrine PF IN SALINE SYRINGE) 50 mg STK-MED ONCE IV ; Start 02/02/21 at 15:00; Stop 02/02/21 at 15:00; Status DC Ondansetron HCl (Zofran) 4 mg STK-MED ONCE .ROUTE ; Start 02/02/21 at 15:09; Stop 02/02/21 at 15:09; Status DC Dexamethasone Sodium Phosphate (Decadron) 4 mg STK-MED ONCE .ROUTE ; Start 02/02/21 at 15:09; Stop 02/02/21 at 15:09; Status DC Desflurane (Suprane) 30 ml STK-MED ONCE IH ; Start 02/02/21 at 15:09; Stop 02/02/21 at 15:10; Status DC Sevoflurane (Ultane) 30 ml STK-MED ONCE IH ; Start 02/02/21 at 15:09; Stop 02/02/21 at 15:10; Status DC Sodium Chloride 1,000 ml @ 750 mls/hr 1X ONCE IV Last administered on 02/02/21at 15:30; Start 02/02/21 at 15:30; Stop 02/02/21 at 16:49; Status DC Fentanyl Citrate (Fentanyl 2ml Vial) 50 mcg PRN Q1HR PRN IVP SEVERE PAIN 7-10 Last administered on 02/07/21at 06:28; Start 02/02/21 at 21:45 Sodium Chloride 1,000 ml @ 1,000 mls/hr Q1H PRN IV hypotension; Start 02/03/21 at 07:30; Stop 02/03/21 at 13:29; Status DC Sodium Chloride 1,000 ml @ 400 mls/hr Q2H30M PRN IV PATENCY; Start 02/03/21 at 07:30; Stop 02/03/21 at 19:29; Status DC Info (PHARMACY MONITORING -- do not chart) 1 each PRN DAILY PRN MC SEE COMMENTS; Start 02/03/21 at 07:30 Vancomycin HCl 1 gm/Sodium Chloride 250 ml @ 250 mls/hr 1X ONCE IV Last a dministered on 02/03/21at 16:55; Start 02/03/21 at 16:00; Stop 02/03/21 at 16:59; Status DC Vancomycin HCl 500 mg/Sodium Chloride 100 ml @ 100 mls/hr QTUTHSA IV Last administered on 02/06/21at 17:35; Start 02/06/21 at 16:00 Acetaminophen (Tylenol) 650 mg PRN Q6HRS PRN PO MILD PAIN / TEMP > 100.3'F; Start 02/03/21 at 13:30 Allopurinol (Zyloprim) 100 mg DAILY PO Last administered on 02/06/21at 08:13; Start 02/03/21 at 14:00 Anastrozole (Arimidex) 1 mg DAILY PO Last administered on 02/06/21at 08:19; Start 02/03/21 at 14:00 Aspirin (Ecotrin) 81 mg DAILY PO Last administered on 02/06/21at 08:13; Start 02/04/21 at 09:00 Atorvastatin Calcium (Lipitor) 80 mg HS PO Last administered on 02/06/21at 21:41; Start 02/03/21 at 21:00 Calcium Carbonate/ Glycine (Oscal) 750 mg BIDWMEALS PO Last administered on 02/04/21at 08:05; Start 02/03/21 at 17:00 Clopidogrel Bisulfate (Plavix) 75 mg DAILY PO Last administered on 02/06/21at 08:13; Start 02/04/21 at 09:00 Ferrous Sulfate (Feosol) 325 mg DAILYWBKFT PO Last administered on 02/06/21at 08:13; Start 02/03/21 at 14:00 Furosemide (Lasix) 80 mg DAILY PO Last administered on 02/05/21at 09:47; Start 02/03/21 at 14:00 Insulin Human Regular (HumuLIN R VIAL) 100 unit TIDAC SQ ; Start 02/03/21 at 16:30; Stop 02/03/21 at 13:32; Status DC Methocarbamol (Robaxin) 500 mg PRN Q8HRS PRN PO MUSCLE SPASMS; Start 02/03/21 at 13:30; Stop 02/06/21 at 07:54; Status DC Midodrine (Proamatine) 2.5 mg TID PO ; Start 02/03/21 at 14:00; Stop 02/03/21 at 15:13; Status DC Pantoprazole Sodium (Protonix) 40 mg DAILYAC PO Last administered on 02/06/21at 05:28; Start 02/03/21 at 14:00 Polyethylene Glycol (miraLAX PACKET) 17 gm PRN DAILY PRN PO CONSTIPATION, 1ST CHOICE; Start 02/03/21 at 13:30 Pramipexole Dihydrochloride (miraPEX) 0.5 mg DAILY PO Last administered on 02/05/21at 09:47; Start 02/03/21 at 14:00 Pramipexole Dihydrochloride (miraPEX) 0.25 mg DAILY PO ; Start 02/04/21 at 09:00; Status UNV Senna/Docusate Sodium (Senna Plus) 1 tab DAILY PO Last administered on 02/06/21at 08:13; Start 02/03/21 at 14:00 Sodium Bicarbonate (Sodium Bicarbonate) 650 mg TID PO Last administered on 02/07/21at 15:10; Start 02/03/21 at 14:00 Non-Formulary Medication (Amlodipine Besylate/ Benazepril (Amlodipine-Benazepril 5-20 Mg)) 1 cap DAILY PO ; Start 02/04/21 at 09:00; Status UNV Insulin Glargine (Lantus Syringe) 10 unit QHS SQ Last administered on 02/04/21at 22:36; Start 02/03/21 at 21:00; Stop 02/06/21 at 07:54; Status DC Levothyroxine Sodium (Synthroid) 200 mcg DAILY06 PO Last administered on 01/26 06/18at 05:28; Start 02/03/21 at 14:00 Non-Formulary Medication (Omeprazole Magnesium (Prilosec Otc)) 1 tab DAILY PO ; Start 02/04/21 at 09:00; Status UNV Ondansetron HCl (Zofran Odt) 4 mg Q6HRS PRN PO NAUSEA/VOMITING Last administered on 02/06/21at 15:18; Start 02/03/21 at 13:45 Oxycodone HCl (Roxicodone) 5 mg PRN Q6HRS PRN PO MODERATE PAIN 4-6 Last administered on 02/06/21at 17:35; Start 02/03/21 at 13:30 Non-Formulary Medication (Pregabalin (Lyrica)) 150 mg Q3DAYS PO ; Start 02/06/21 at 09:00; Status UNV Latanoprost (Xalatan) 1 drop QHS OU Last administered on 02/05/21at 21:32; Start 02/03/21 at 21:00 Sennosides (Senna) 8.6 mg PRN BID PRN PO CONSTIPATION, 2ND CHOICE Last administered on 02/03/21at 15:58; Start 02/03/21 at 13:30 Amlodipine Besylate (Norvasc) 5 mg DAILY PO Last administered on 02/05/21 09:46; Start 02/03/21 at 14:00 Lisinopril (Prinivil) 20 mg DAILY PO Last administered on 02/05/21at 09:45; Start 02/03/21 at 14:00 Oxycodone HCl (Roxicodone) 5 mg PRN Q6HRS PRN PO PAIN; Start 02/03/21 at 14:15; Status UNV Midodrine (Proamatine) 2.5 mg TID@0800,1300,1800 PO Last administered on 02/07/21at 17:57; Start 02/03/21 at 18:00 Lactobacillus Rhamnosus (Culturelle) 1 cap BID PO Last administered on 02/06/21at 21:40; Start 02/05/21 at 12:00 Cefepime HCl (Maxipime) 2 gm QTU IVP Last administered on 02/06/21at 17:49; Start 02/06/21 at 16:00 Cefepime HCl (Maxipime) 2 gm QTH IVP ; Start 02/08/21 at 16:00 Cefepime HCl (Maxipime) 3 gm QSA IVP ; Start 02/10/21 at 16:00 Midodrine (Proamatine) 5 mg PRN DAILY PRN PO hypotension SBP < 90 Last administered on 02/06/21at 11:59; Start 02/06/21 at 08:15 Sodium Chloride 1,000 ml @ 1,000 mls/hr Q1H PRN IV hypotension; Start 02/06/21 at 08:30; Stop 02/06/21 at 14:29; Status DC Sodium Chloride 1,000 ml @ 400 mls/hr Q2H30M PRN IV PATENCY; Start 02/06/21 at 08:30; Stop 02/06/21 at 20:29; Status DC Info (PHARMACY MONITORING -- do not chart) 1 each PRN DAILY PRN MC SEE COMMENTS; Start 02/06/21 at 08:30; Status UNV Info (PHARMACY MONITORING -- do not chart) 1 each PRN DAILY PRN MC SEE COMMENTS; Start 02/06/21 at 08:30; Status UNV Lidocaine HCl (Lidocaine 1% 20ml Vial) 20 ml STK-MED ONCE .ROUTE ; Start 02/07/21 at 08:10; Stop 02/07/21 at 08:11; Status DC Iodixanol (Visipaque 320) 100 ml STK-MED ONCE .ROUTE ; Start 02/07/21 at 08:10; Stop 02/07/21 at 08:11; Status DC Heparin Sodium/ Sodium Chloride 1,000 ml @ As Directed STK-MED ONCE .ROUTE ; Start 02/07/21 at 08:10; Stop 02/07/21 at 08:11; Status DC Midazolam HCl (Versed) 2 mg STK-MED ONCE .ROUTE ; Start 02/07/21 at 08:20; Stop 02/07/21 at 08:20; Status DC Fentanyl Citrate (Fentanyl 2ml Vial) 100 mcg STK-MED ONCE .ROUTE ; Start 02/07/21 at 08:20; Stop 02/07/21 at 08:20; Status DC Heparin Sodium (Porcine) (Heparin Sodium) 10,000 unit STK-MED ONCE .ROUTE ; Start 02/07/21 at 08:22; Stop 02/07/21 at 08:23; Status DC Heparin Sodium/ Sodium Chloride (HEPARIN for ARTERIAL LINE FLUSH) 1,000 unit 1X ONCE IART Last administered on 02/07/21at 08:30; Start 02/07/21 at 08:30; Stop 02/07/21 at 08:31; Status DC Heparin Sodium/ Sodium Chloride (HEPARIN for ARTERIAL LINE FLUSH) 1,000 unit 1X ONCE IART Last administered on 02/07/21at 08:30; Start 02/07/21 at 08:30; Stop 02/07/21 at 08:31; Status DC Midazolam HCl (Versed) 2 mg 1X ONCE IV Last administered on 02/07/21at 09:44; Start 02/07/21 at 08:30; Stop 02/07/21 at 08:31; Status DC Fentanyl Citrate (Fentanyl 2ml Vial) 100 mcg 1X ONCE IV Last administered on 02/07/21at 09:14; Start 02/07/21 at 08:30; Stop 02/07/21 at 08:31; Status DC Iodixanol (Visipaque 320) 100 ml 1X ONCE IART Last administered on 02/07/21at 11:16; Start 02/07/21 at 08:30; Stop 02/07/21 at 08:31; Status DC Lidocaine HCl (Lidocaine 1% 20ml Vial) 20 ml 1X ONCE INJ Last administered on 02/07/21at 09:25; Start 02/07/21 at 08:30; Stop 02/07/21 at 08:31; Status DC Info (CONTRAST GIVEN -- Rx MONITORING) 1 each PRN DAILY PRN MC SEE COMMENTS; Start 02/07/21 at 08:45; Stop 02/09/21 at 08:44 Nitroglycerin (Nitroglycerin) 200 mcg STK-MED ONCE .ROUTE ; Start 02/07/21 at 08:44; Stop 02/07/21 at 08:44; Status DC Heparin Sodium (Porcine) (Heparin Sodium) 8,000 unit 1X ONCE IV Last administered on 02/07/21at 09:50; Start 02/07/21 at 10:00; Stop 02/07/21 at 10:01; Status DC Fentanyl Citrate (Fentanyl 2ml Vial) 100 mcg STK-MED ONCE .ROUTE ; Start 02/07/21 at 10:14; Stop 02/07/21 at 10:15; Status DC Protamine Sulfate (Protamine) 50 mg STK-MED ONCE IV ; Start 02/07/21 at 11:10; Stop 02/07/21 at 11:11; Status DC Protamine Sulfate (Protamine) 50 mg 1X ONCE IV Last administered on 02/07/21at 11:12; Start 02/07/21 at 11:15; Stop 02/07/21 at 11:17; Status DC Oxycodone/ Acetaminophen (Percocet 5/325) 1 tab PRN Q4HRS PRN PO MILD PAIN, 1ST CHOICE; Start 02/07/21 at 11:45 Oxycodone/ Acetaminophen (Percocet 5/325) 2 tab PRN Q4HRS PRN PO MODERATE PAIN, SEVERE PAIN; Start 02/07/21 at 11:45 Sodium Chloride 1,000 ml @ 1,000 mls/hr 1X ONCE IV Last administered on 02/07/21at 12:28; Start 02/07/21 at 13:00; Stop 02/07/21 at 13:59; Status DC Fludrocortisone Acetate (Florinef) 0.1 mg DAILY PO Last administered on 02/07/21at 15:11; Start 02/07/21 at 13:30 Multivitamins (Thera M Plus) 1 tab DAILY PO Last administered on 02/07/21at 15:11; Start 02/07/21 at 14:00 Fentanyl Citrate (Fentanyl 2ml Vial) 25 mcg PRN Q5MIN PRN IVP MILD PAIN 1-3; Start 02/08/21 at 06:00; Stop 02/09/21 at 05:59 Fentanyl Citrate (Fentanyl 2ml Vial) 50 mcg PRN Q5MIN PRN IVP MODERATE PAIN 4- 6; Start 02/08/21 at 06:00; Stop 02/09/21 at 05:59 Morphine Sulfate (Morphine Sulfate) 1 mg PRN Q10MIN PRN IVP SEVERE PAIN 7-10; Start 02/08/21 at 06:00; Stop 02/09/21 at 05:59 Ringer's Solution 1,000 ml @ 30 mls/hr Q24H IV ; Start 02/08/21 at 06:00; Stop 02/08/21 at 17:59 Hydromorphone HCl (Dilaudid) 0.5 mg PRN Q10MIN PRN IVP SEVERE PAIN 7-10, 2nd CHOICE; Start 02/08/21 at 06:00; Stop 02/09/21 at 05:59 Prochlorperazine Edisylate (Compazine) 5 mg PACU PRN PRN IVP NAUSEA, MRX1; Start 02/08/21 at 06:00; Stop 02/09/21 at 05:59 Cefazolin Sodium 1 gm/Sodium Chloride 500 ml @ 500 mls/hr 1X ONCE IRR ; Start 02/08/21 at 06:00; Stop 02/08/21 at 06:59 Active Scripts Active Feosol (Ferrous Sulfate) 325 Mg Tablet 325 Mg PO DAILYWBKFT 30 Days Reported Lasix (Furosemide) 80 Mg Tablet 1 Tab PO DAILY 30 Days Humalog (Insulin Lispro) 100 Unit/1 Ml Vial 100 Unit SQ TIDAC Travatan Z (Travoprost) 5 Ml Drops 1 Drop EACHEYE DAILY Zofran (Ondansetron Hcl) 4 Mg Tablet 1 Tab PO Q6HRS Senna-Docusate Sodium Tablet (Sennosides/Docusate Sodium) 1 Each Tablet 1 Tab PO DAILY 20 Days Renaplex-D Tablet (B,C/Folic/Zinc/Selenometh/D3/E) 1 Each Tablet 1 Each PO DAILY Clopidogrel (Clopidogrel Bisulfate) 75 Mg Tablet 1 Tab PO DAILY Protonix (Pantoprazole Sodium) 40 Mg Tablet.dr 40 Mg PO DAILYAC Oxycodone Hcl 5 Mg Capsule 5 Mg PO PRN Q6HRS PRN Mirapex (Pramipexole Di-Hcl) 0.25 Mg Tablet 0.5 Mg PO DAILY Miralax (Polyethylene Glycol 3350) 17 Gm Powd.pack 1 Packet PO DAILY PRN 2 Days dissolve in water Midodrine Hcl 2.5 Mg Tablet 2.5 Mg PO TID Methocarbamol 500 Mg Tablet 500 Mg PO PRN Q8HRS D3-50 (Cholecalciferol (Vitamin D3)) 50,000 Unit Capsule 1,000 Unit PO DAILY Calcium Carbonate 500 Mg Tablet 750 Mg PO BID Calcium Acetate 667 Mg Tablet 2 Tab PO DAILY 30 Days Arimidex (Anastrozole) 1 Mg Tablet 1 Tab PO DAILY 30 Days Allopurinol 100 Mg Tablet 1 Tab PO DAILY Acetaminophen 325 Mg Tablet 2 Tab PO PRN Q6HRS PRN 30 Days Prilosec Otc (Omeprazole Magnesium) 20 Mg Tablet.dr 1 Tab PO DAILY Calcium 500 + D Tablet (Calcium Carbonate/Vitamin D3) 1 Each Tablet 1 Each PO DAILY Levothyroxine Sodium 200 Mcg Tablet 200 Mcg PO DAILYAC Tresiba Flextouch U-200 (Insulin Degludec) 200 Unit/1 Ml Insuln.pen 10 Unit SQ HS Lyrica (Pregabalin) 150 Mg Capsule 150 Mg PO Q3DAYS 30 Days Amlodipine-Benazepril 5-20 Mg (Amlodipine Besylate/Benazepril) 1 Each Capsule 1 Cap PO DAILY Sodium Bicarbonate 650 Mg Tablet 650 Mg PO TID Mirapex (Pramipexole Di-Hcl) 0.25 Mg Tablet 1 Tab PO DAILY Aspir 81 (Aspirin) 81 Mg Tablet.dr 81 Mg PO Atorvastatin Calcium 40 Mg Tablet 80 Mg PO HS Pertinent Labs/Test Laboratory Tests Test 02/05/21 21:33 02/06/21 04:25 02/06/21 07:06 02/06/21 16:07 Glucose (Fingerstick) 79 mg/dL (70-99) 107 mg/dL (70-99) 68 mg/dL (70-99) Sodium Level 139 mmol/L (136-145) Potassium Level 3.4 mmol/L (3.5-5.1) Chloride Level 102 mmol/L (98-107) Carbon Dioxide Level 26 mmol/L (21-32) Anion Gap 11 (6-14) Blood Urea Nitrogen 36 mg/dL (7-20) Creatinine 5.5 mg/dL (0.6-1.0) Estimated GFR (Cockcroft-Gault) 7.8 Glucose Level 62 mg/dL (70-99) Calcium Level 7.5 mg/dL (8.5-10.1) Test 02/06/21 17:38 02/06/21 20:39 02/07/21 07:53 02/07/21 10:04 Glucose (Fingerstick) 89 mg/dL (70-99) 97 mg/dL (70-99) 70 mg/dL (70-99) Activated Clotting Time 308 sec (92-181) Test 02/07/21 12:20 02/07/21 12:30 02/07/21 12:37 02/07/21 16:49 Sodium Level 138 mmol/L (136-145) Potassium Level 3.6 mmol/L (3.5-5.1) Chloride Level 103 mmol/L (98-107) Carbon Dioxide Level 28 mmol/L (21-32) Anion Gap 7 (6-14) Blood Urea Nitrogen 30 mg/dL (7-20) Creatinine 4.9 mg/dL (0.6-1.0) Estimated GFR (Cockcroft-Gault) 8.9 Glucose Level 84 mg/dL (70-99) Calcium Level 7.5 mg/dL (8.5-10.1) White Blood Count 16.2 x10^3/uL (4.0-11.0) Red Blood Count 2.65 x10^6/uL (3.50-5.40) Hemoglobin 8.2 g/dL (12.0-15.5) Hematocrit 26.7 % (36.0-47.0) Mean Corpuscular Volume 101 fL (79-100) Mean Corpuscular Hemoglobin 31 pg (25-35) Mean Corpuscular Hemoglobin Concent 31 g/dL (31-37) Red Cell Distribution Width 18.2 % (11.5-14.5) Platelet Count 196 x10^3/uL (140-400) Glucose (Fingerstick) 74 mg/dL (70-99) 66 mg/dL (70-99) Laboratory Tests Test 02/07/21 07:53 02/07/21 10:04 02/07/21 12:20 02/07/21 12:30 Glucose (Fingerstick) 70 mg/dL (70-99) Activated Clotting Time 308 sec (92-181) Sodium Level 138 mmol/L (136-145) Potassium Level 3.6 mmol/L (3.5-5.1) Chloride Level 103 mmol/L (98-107) Carbon Dioxide Level 28 mmol/L (21-32) Anion Gap 7 (6-14) Blood Urea Nitrogen 30 mg/dL (7-20) Creatinine 4.9 mg/dL (0.6-1.0) Estimated GFR (Cockcroft-Gault) 8.9 Glucose Level 84 mg/dL (70-99) Calcium Level 7.5 mg/dL (8.5-10.1) White Blood Count 16.2 x10^3/uL (4.0-11.0) Red Blood Count 2.65 x10^6/uL (3.50-5.40) Hemoglobin 8.2 g/dL (12.0-15.5) Hematocrit 26.7 % (36.0-47.0) Mean Corpuscular Volume 101 fL (79-100) Mean Corpuscular Hemoglobin 31 pg (25-35) Mean Corpuscular Hemoglobin Concent 31 g/dL (31-37) Red Cell Distribution Width 18.2 % (11.5-14.5) Platelet Count 196 x10^3/uL (140-400) Test 02/07/21 12:37 02/07/21 16:49 Glucose (Fingerstick) 74 mg/dL (70-99) 66 mg/dL (70-99) LAST VITALS Vital Signs Date Time Temp Pulse Resp B/P (MAP) Pulse Ox O2 Delivery O2 Flow Rate FiO2 02/07/21 19:00 98.0 63 20 87/30 (49) 98 Nasal Cannula 2.0 98.0 KRISTEN VALDES CRNA Feb 07, 2021 20:42
[2021-02-07] MEDS: ATORVASTATIN CALCIUM 40 MG TABLET. PO SCH (21:25)
[2021-02-07] MEDS: EPOETIN ALFA-EPBX for ESRD 20,000 UNIT/ML VIAL. SQ SCH (21:26)
[2021-02-07] MEDS: LATANOPROST 0.005% OPHTH SOLUTION 2.5ML BOTTLE. OU SCH (21:27)
[2021-02-08] VITALS (13 sets, daily range): BP systolic 56–157; BP diastolic 24–122
[2021-02-08] MEDS: LEVOTHYROXINE 100 MCG TABLET PO SCH (05:22)
[2021-02-08] MEDS ORDERED: IV RINGERS,LACTATED 1000ML 1,000 ML IV SCH (06:00)
[2021-02-08] MEDS ORDERED: HYDROmorphone 2 MG/ML VIAL IVP PRN (06:00)
[2021-02-08] MEDS ORDERED: PROCHLORPERAZINE 10 MG/2 ML VIAL. IVP PRN (06:00)
[2021-02-08] MEDS ORDERED: MORPHINE SULFATE 2 MG/ML INJ. IVP PRN (06:00)
[2021-02-08] MEDS ORDERED: fentaNYL PF VIAL 100 MCG/2 ML VIAL IVP PRN ×2 (06:00)
[2021-02-08] MEDS: PANTOPRAZOLE 40 MG TABLET.DR. PO SCH (07:30)
--- NOTE | 2021-02-08 07:36 | PDOC ---
Infectious Disease Note Subjective Subjective Patient is feeling good ROS ROS No nausea vomiting diarrhea Vital Sign Vital Signs Vital Signs Date Time Temp Pulse Resp B/P (MAP) Pulse Ox O2 Delivery O2 Flow Rate FiO2 02/08/21 03:00 97.8 68 20 89/51 (64) 93 Nasal Cannula 2.0 97.8 Physical Exam PHYSICAL EXAM GENERAL: Alert and oriented x 3 female, lying in bed comfortably, in no acute distress. HEENT: Normocephalic, atraumatic and anicteric. No thrush. Oral mucosa moist. NECK: Supple. LUNGS: Clear bilaterally. No wheezing. HEART: S1, S2. No murmurs. ABDOMEN: Soft, nontender, and nondistended. EXTREMITIES: Right foot wound seen,, large , deep, slightly necrotic edges Left foot no acute change BACK: Reveals normal curvature. No CVA tenderness. NEUROLOGIC: Alert and oriented x 3, grossly nonfocal. PSYCHIATRIC: Calm and cooperative. Labs Lab Laboratory Tests Test 02/07/21 07:53 02/07/21 10:04 02/07/21 12:20 02/07/21 12:30 Glucose (Fingerstick) 70 mg/dL (70-99) Activated Clotting Time 308 sec (92-181) Sodium Level 138 mmol/L (136-145) Potassium Level 3.6 mmol/L (3.5-5.1) Chloride Level 103 mmol/L (98-107) Carbon Dioxide Level 28 mmol/L (21-32) Anion Gap 7 (6-14) Blood Urea Nitrogen 30 mg/dL (7-20) Creatinine 4.9 mg/dL (0.6-1.0) Estimated GFR (Cockcroft-Gault) 8.9 Glucose Level 84 mg/dL (70-99) Calcium Level 7.5 mg/dL (8.5-10.1) White Blood Count 16.2 x10^3/uL (4.0-11.0) Red Blood Count 2.65 x10^6/uL (3.50-5.40) Hemoglobin 8.2 g/dL (12.0-15.5) Hematocrit 26.7 % (36.0-47.0) Mean Corpuscular Volume 101 fL (79-100) Mean Corpuscular Hemoglobin 31 pg (25-35) Mean Corpuscular Hemoglobin Concent 31 g/dL (31-37) Red Cell Distribution Width 18.2 % (11.5-14.5) Platelet Count 196 x10^3/uL (140-400) Test 02/07/21 12:37 02/07/21 16:49 02/07/21 21:25 Glucose (Fingerstick) 74 mg/dL (70-99) 66 mg/dL (70-99) 90 mg/dL (70-99) Micro Microbiology 02/01/21 Blood Culture - Preliminary, Resulted NO GROWTH AFTER 3 DAYS Objective Assessment 1. Right fifth toe gangrene with right lateral and right heel wounds. Ray amputation of the right fifth toe including the metatarsal head I and D of the right heel February 02, 2021 Cultures not available 2. Peripheral vascular disease, status post angioplasty at on 01/16/2021. 3. End-stage renal disease, on hemodialysis. 4. Diabetes with neuropathy. 5. Protein-calorie malnutrition. 6. Abnormal LFTs. 7. Anemia. Plan Plan of Care Surgery today Wound care as directed Monitor labs and cultures continue supportive care once vascular ok to d/c , vanc and cefepime through HD STEVE AGUILAR MD Feb 08, 2021 07:36
--- NOTE | 2021-02-08 07:58 | PDOC ---
[employer] PROGRESS NOTE Date of Service DOS: DATE: 02/08/21 TIME: 07:47 Chief Complaint Chief Complaint A/P: Right fifth toe gangrene with right lateral and right heel wounds - s/p Ray amputation of the right fifth toe including the metatarsal head I and D of the right heel February 02, 2021 Peripheral vascular disease, status post angioplasty at on 01/16/2021. End-stage renal disease, on hemodialysis. Diabetes with neuropathy. Protein-calorie malnutrition. Abnormal LFTs. Anemia. History of Present Illness History of Present Illness Ms Ruelas is a 65-year-old female with history of diabetes; hypertension; coronary artery disease; CABG; end-stage renal disease, on dialysis; peripheral vascular disease, who underwent angiogram and angioplasty of the right anterior tibial artery at on 01/16/2021 who presented to the ER with complaints of wounds of the right lower extremity for a couple of weeks. She denies any history of injury. Denies fevers, chills, nausea, vomiting, diarrhea, headache, sore throat, difficulty swallowing, shortness of breath, or cough. 02/07: hypotension after angio, will bolus 1 liter and give fludro, Continue IV abx, ID following, on zosyn. Vas plans limb salvage surg Overnight no events. She has been noticing some pill esophagitis having to suction to clear her own secretions. Right leg pain has improved. Afebrile. Vitals/I&O Vitals/I&O: Vital Signs Date Time Temp Pulse Resp B/P (MAP) Pulse Ox O2 Delivery O2 Flow Rate FiO2 02/08/21 03:00 97.8 68 20 89/51 (64) 93 Nasal Cannula 2.0 97.8 I & O 02/07/21 02/07/21 02/08/21 15:00 23:00 07:00 Intake Total 200 ml 50 ml Output Total 1 ml Balance 200 ml -1 ml 50 ml Physical Exam Physical Exam: GENERAL: Alert and oriented x 3 female, lying in bed comfortably, in no acute distress. HEENT: Normocephalic, atraumatic and anicteric. No thrush. Oral mucosa moist. NECK: Supple. LUNGS: Clear bilaterally. No wheezing. HEART: S1, S2. No murmurs. ABDOMEN: Soft, nontender, and nondistended. EXTREMITIES: Right foot wound seen,, large , deep, slightly necrotic edges Left foot no acute change BACK: Reveals normal curvature. No CVA tenderness. NEUROLOGIC: Alert and oriented x 3, grossly nonfocal. PSYCHIATRIC: Calm and cooperative. General: Alert, Oriented X3, Cooperative Heart: Regular rate, Normal S1, Normal S2, No murmurs, Gallops Lungs: Clear Abdomen: Normal bowel sounds, Soft, No tenderness, No hepatosplenomegaly, No masses Extremities: Other Labs Labs: Laboratory Tests Test 02/07/21 07:53 02/07/21 10:04 02/07/21 12:20 02/07/21 12:30 Glucose (Fingerstick) 70 mg/dL (70-99) Activated Clotting Time 308 sec (92-181) Sodium Level 138 mmol/L (136-145) Potassium Level 3.6 mmol/L (3.5-5.1) Chloride Level 103 mmol/L (98-107) Carbon Dioxide Level 28 mmol/L (21-32) Anion Gap 7 (6-14) Blood Urea Nitrogen 30 mg/dL (7-20) Creatinine 4.9 mg/dL (0.6-1.0) Estimated GFR (Cockcroft-Gault) 8.9 Glucose Level 84 mg/dL (70-99) Calcium Level 7.5 mg/dL (8.5-10.1) White Blood Count 16.2 x10^3/uL (4.0-11.0) Red Blood Count 2.65 x10^6/uL (3.50-5.40) Hemoglobin 8.2 g/dL (12.0-15.5) Hematocrit 26.7 % (36.0-47.0) Mean Corpuscular Volume 101 fL (79-100) Mean Corpuscular Hemoglobin 31 pg (25-35) Mean Corpuscular Hemoglobin Concent 31 g/dL (31-37) Red Cell Distribution Width 18.2 % (11.5-14.5) Platelet Count 196 x10^3/uL (140-400) Test 02/07/21 12:37 02/07/21 16:49 02/07/21 21:25 Glucose (Fingerstick) 74 mg/dL (70-99) 66 mg/dL (70-99) 90 mg/dL (70-99) Assessment and Plan Assessmemt and Plan Problems Medical Problems: (1) End stage kidney disease Status: Acute (2) Leukocytosis Status: Acute (3) Right foot infection Status: Acute Comment Review of Relevant I have reviewed the following items mimi (where applicable) has been applied. Medications: Current Medications Medications (Trade) Dose Ordered Sig/Michelle Route PRN Reason Start Time Stop Time Status Last Admin Dose Admin Heparin Sodium/ Sodium Chloride (HEPARIN for ARTERIAL LINE FLUSH) 1,000 unit 1X ONCE IART 02/07/21 08:30 02/07/21 08:31 DC 02/07/21 08:30 Heparin Sodium/ Sodium Chloride (HEPARIN for ARTERIAL LINE FLUSH) 1,000 unit 1X ONCE IART 02/07/21 08:30 02/07/21 08:31 DC 02/07/21 08:30 Midazolam HCl (Versed) 2 mg 1X ONCE IV 02/07/21 08:30 02/07/21 08:31 DC 02/07/21 09:44 Fentanyl Citrate (Fentanyl 2ml Vial) 100 mcg 1X ONCE IV 02/07/21 08:30 02/07/21 08:31 DC 02/07/21 09:14 Iodixanol (Visipaque 320) 100 ml 1X ONCE IART 02/07/21 08:30 02/07/21 08:31 DC 02/07/21 11:16 Lidocaine HCl (Lidocaine 1% 20ml Vial) 20 ml 1X ONCE INJ 02/07/21 08:30 02/07/21 08:31 DC 02/07/21 09:25 Heparin Sodium (Porcine) (Heparin Sodium) 8,000 unit 1X ONCE IV 02/07/21 10:00 02/07/21 10:01 DC 02/07/21 09:50 Protamine Sulfate (Protamine) 50 mg 1X ONCE IV 02/07/21 11:15 02/07/21 11:17 DC 02/07/21 11:12 Sodium Chloride 1,000 ml @ 1,000 mls/hr 1X ONCE IV 02/07/21 13:00 02/07/21 13:59 DC 02/07/21 12:28 Fludrocortisone Acetate (Florinef) 0.1 mg DAILY PO 02/07/21 13:30 02/07/21 15:11 Multivitamins (Thera M Plus) 1 tab DAILY PO 02/07/21 14:00 02/07/21 15:11 Justifications for Admission Other Justification KAUSHIK SUMMERS MD Feb 08, 2021 07:58
[2021-02-08] MEDS: CALCIUM CARBONATE 500 MG TABLET PO SCH (08:00)
[2021-02-08] MEDS: FERROUS SULFATE 325 MG TABLET. PO SCH (08:00)
[2021-02-08] MEDS: MIDODRINE 2.5 MG TABLET PO SCH ×3 (08:00→17:45)
[2021-02-08] MEDS: FUROSEMIDE 80 MG TABLET. PO SCH (09:00)
[2021-02-08] MEDS: FLUDROCORTISONE 0.1 MG TABLET PO SCH (09:00)
[2021-02-08] MEDS: PRAMIPEXOLE 0.25 MG TABLET. PO SCH (09:00)
[2021-02-08] MEDS: ANASTROZOLE 1 MG TABLET PO SCH (09:00)
[2021-02-08] MEDS: ALLOPURINOL 100 MG TABLET. PO SCH (09:00)
[2021-02-08] MEDS: SODIUM BICARBONATE 650 MG TABLET. PO SCH ×3 (09:00→20:37)
[2021-02-08] MEDS: ASPIRIN ENTERIC COATED 81 MG TABLET.DR. PO SCH (09:00)
[2021-02-08] MEDS: MULTIVITAMIN with MINERAL TABLET. PO SCH (09:00)
[2021-02-08] MEDS: CLOPIDOGREL BISULFATE 75 MG TABLET PO SCH (09:00)
[2021-02-08] MEDS: SENNOSIDES/DOCUSATE 8.6/50MG TABLET. PO SCH (09:00)
[2021-02-08] MEDS: LISINOPRIL 20 MG TABLET PO SCH (09:00)
[2021-02-08] MEDS: LACTOBACILLUS RHAMNOSUS GG 1 CAPSULE. PO SCH ×2 (09:00→20:37)
--- NOTE | 2021-02-08 09:17 | PDOC ---
DATE OF SERVICE DATE: 02/08/21 TIME: 09:17 SUBJECTIVE ROS Hypotension after angio on 02/07 ;Recd 1 liter bolus and fludro, OBJECTIVE Vital Signs Vital Signs Date Time Temp Pulse Resp B/P (MAP) Pulse Ox O2 Delivery O2 Flow Rate FiO2 02/08/21 07:00 99.3 62 18 157/122 (134) 98 Nasal Cannula 99.3 02/08/21 03:00 2.0 I & 0 Intake and Output 02/08/21 07:00 Intake Total 250 ml Output Total 1 ml Balance 249 ml Intake Oral 250 ml Stool Total 1 ml PHYSICAL EXAM Physical Exam GENERAL: no acute distress. HEENT: Normocephalic, atraumatic and anicteric. Oral mucosa moist. NECK: Supple. LUNGS: Clear bilaterally. Non labored HEART: S1, S2. No murmurs. ABDOMEN: Soft, nontender, and nondistended. EXTRM: Right foot wound (per ID and vascular) NEURO: Alert and oriented x 3, grossly nonfocal. DIAGNOSIS/ASSESSMENT Assessment & Plan ESRD on HD TTS @ [facility] , dialysis today . Discussed treatment plan with [facility] ; she recently started PD as well but had to switch to HD 2/2 Fluid retention .Avoid PICC /Mid line Anemia - ANNIA Gangrene right 5th toe/lateral foot and right heel - S/P Ray amputation of the right fifth toe including the metatarsal head I and D of the right heel February 02, 2021 HTN - antihypertensives at home , on hold currently DM per primary COMMENT/RELEVANT DATA Meds Current Medications Medications (Trade) Dose Ordered Sig/Michelle Start Time Stop Time Status Last Admin Dose Admin Acetaminophen (Tylenol) 650 mg PRN Q6HRS PRN 02/03/21 13:30 Allopurinol (Zyloprim) 100 mg DAILY 02/03/21 14:00 02/06/21 08:13 100 MG Amlodipine Besylate (Norvasc) 5 mg DAILY 02/03/21 14:00 02/05/21 09:46 5 MG Anastrozole (Arimidex) 1 mg DAILY 02/03/21 14:00 02/06/21 08:19 1 MG Aspirin (Ecotrin) 81 mg DAILY 02/04/21 09:00 02/06/21 08:13 81 MG Atorvastatin Calcium (Lipitor) 80 mg HS 02/03/21 21:00 02/07/21 21:25 80 MG Calcium Carbonate/ Glycine (Oscal) 750 mg BIDWMEALS 02/03/21 17:00 02/04/21 08:05 750 MG Cefazolin Sodium 1 gm/Sodium Chloride 500 ml @ 500 mls/hr 1X ONCE 02/08/21 06:00 02/08/21 06:59 DC Cefepime HCl (Maxipime) 3 gm QSA 02/10/21 16:00 Clopidogrel Bisulfate (Plavix) 75 mg DAILY 02/04/21 09:00 02/06/21 08:13 75 MG Desflurane (Suprane) 30 ml STK-MED ONCE 02/02/21 15:09 02/02/21 15:10 DC Dexamethasone Sodium Phosphate (Decadron) 4 mg STK-MED ONCE 02/02/21 15:09 02/02/21 15:09 DC Dextrose 1,000 ml @ 50 mls/hr Q20H 02/02/21 13:30 02/05/21 06:05 50 MLS/HR Dextrose (Dextrose 50%-Water Syringe) 12.5 gm PRN Q15MIN PRN 02/02/21 09:00 02/02/21 13:04 12.5 GM Ephedrine Sulfate (ePHEDrine PF IN SALINE SYRINGE) 50 mg STK-MED ONCE 02/02/21 15:00 02/02/21 15:00 DC Epoetin Galileo-epbx (RETACRIT for ESRD PTS) 10,000 unit MoWeFr@2100 02/02/21 21:00 02/07/21 21:26 10,000 UNIT Fentanyl Citrate (Fentanyl 2ml Vial) 50 mcg PRN Q5MIN PRN 02/08/21 06:00 02/09/21 05:59 Ferrous Sulfate (Feosol) 325 mg DAILYWBKFT 02/03/21 14:00 02/06/21 08:13 325 MG Fludrocortisone Acetate (Florinef) 0.1 mg DAILY 02/07/21 13:30 02/07/21 15:11 0.1 MG Furosemide (Lasix) 80 mg DAILY 02/03/21 14:00 02/05/21 09:47 80 MG Heparin Sodium (Porcine) (Heparin Sodium) 8,000 unit 1X ONCE 02/07/21 10:00 02/07/21 10:01 DC 02/07/21 09:50 10,000 UNIT Heparin Sodium/ Sodium Chloride (HEPARIN for ARTERIAL LINE FLUSH) 1,000 unit 1X ONCE 02/07/21 08:30 02/07/21 08:31 DC 02/07/21 08:30 1,000 UNIT Hydromorphone HCl (Dilaudid) 0.5 mg PRN Q10MIN PRN 02/08/21 06:00 02/09/21 05:59 Info (CONTRAST GIVEN -- Rx MONITORING) 1 each PRN DAILY PRN 02/07/21 08:45 02/09/21 08:44 Info (PHARMACY MONITORING -- do not chart) 1 each PRN DAILY PRN 02/06/21 08:30 UNV Insulin Glargine (Lantus Syringe) 10 unit QHS 02/03/21 21:00 02/06/21 07:54 DC 02/04/21 22:36 10 UNIT Insulin Human Regular (HumuLIN R VIAL) 100 unit TIDAC 02/03/21 16:30 02/03/21 13:32 DC Iodixanol (Visipaque 320) 100 ml 1X ONCE 02/07/21 08:30 02/07/21 08:31 DC 02/07/21 11:16 60 ML Lactobacillus Rhamnosus (Culturelle) 1 cap BID 02/05/21 12:00 02/07/21 21:26 1 CAP Latanoprost (Xalatan) 1 drop QHS 02/03/21 21:00 02/07/21 21:27 1 DROP Levothyroxine Sodium (Synthroid) 200 mcg DAILY06 02/03/21 14:00 02/06/21 05:28 200 MCG Lidocaine HCl (Lidocaine 1% 20ml Vial) 20 ml 1X ONCE 02/07/21 08:30 02/07/21 08:31 DC 02/07/21 09:25 16 ML Lidocaine HCl (Lidocaine Pf 2% Vial) 5 ml STK-MED ONCE 02/02/21 13:39 02/02/21 13:39 DC Lisinopril (Prinivil) 20 mg DAILY 02/03/21 14:00 02/05/21 09:45 20 MG Methocarbamol (Robaxin) 500 mg PRN Q8HRS PRN 02/03/21 13:30 02/06/21 07:54 DC Midazolam HCl (Versed) 2 mg 1X ONCE 02/07/21 08:30 02/07/21 08:31 DC 02/07/21 09:44 2 MG Midodrine (Proamatine) 5 mg PRN DAILY PRN 02/06/21 08:15 02/06/21 11:59 5 MG Morphine Sulfate (Morphine Sulfate) 1 mg PRN Q10MIN PRN 02/08/21 06:00 02/09/21 05:59 Multivitamins (Thera M Plus) 1 tab DAILY 02/07/21 14:00 02/07/21 15:11 1 TAB Nitroglycerin (Nitroglycerin) 200 mcg STK-MED ONCE 02/07/21 08:44 02/07/21 08:44 DC Non-Formulary Medication (Amlodipine Besylate/ Benazepril (Amlodipine-Benazepril 5-20 Mg)) 1 cap DAILY 02/04/21 09:00 UNV Non-Formulary Medication (Omeprazole Magnesium (Prilosec Otc)) 1 tab DAILY 02/04/21 09:00 UNV Non-Formulary Medication (Pregabalin (Lyrica)) 150 mg Q3DAYS 02/06/21 09:00 UNV Ondansetron HCl (Zofran Odt) 4 mg Q6HRS PRN 02/03/21 13:45 02/06/21 15:18 4 MG Ondansetron HCl (Zofran) 4 mg STK-MED ONCE 02/02/21 15:09 02/02/21 15:09 DC Oxycodone HCl (Roxicodone) 5 mg PRN Q6HRS PRN 02/03/21 14:15 UNV Oxycodone/ Acetaminophen (Percocet 5/325) 2 tab PRN Q4HRS PRN 02/07/21 11:45 Pantoprazole Sodium (Protonix) 40 mg DAILYAC 02/03/21 14:00 02/06/21 05:28 40 MG Phenylephrine HCl (PHENYLEPHRINE in 0.9% NACL PF) 1 mg STK-MED ONCE 02/02/21 13:40 02/02/21 13:40 DC Piperacillin Sod/ Tazobactam Sod 2.25 gm/Sodium Chloride 50 ml @ 100 mls/hr Q8HRS 02/02/21 09:00 02/05/21 15:15 DC 02/05/21 05:53 100 MLS/HR Piperacillin Sod/ Tazobactam Sod 4.5 gm/Sodium Chloride 100 ml @ 200 mls/hr 1X ONCE 02/01/21 17:45 02/01/21 18:14 DC 02/01/21 18:10 200 MLS/HR Polyethylene Glycol (miraLAX PACKET) 17 gm PRN DAILY PRN 02/03/21 13:30 Pramipexole Dihydrochloride (miraPEX) 0.25 mg DAILY 02/04/21 09:00 UNV Prochlorperazine Edisylate (Compazine) 5 mg PACU PRN PRN 02/08/21 06:00 02/09/21 05:59 Propofol (Diprivan) 200 mg STK-MED ONCE 02/02/21 13:39 02/02/21 13:39 DC Protamine Sulfate (Protamine) 50 mg 1X ONCE 02/07/21 11:15 02/07/21 11:17 DC 02/07/21 11:12 50 MG Ringer's Solution 1,000 ml @ 30 mls/hr Q24H 02/08/21 06:00 02/08/21 17:59 Senna/Docusate Sodium (Senna Plus) 1 tab DAILY 02/03/21 14:00 02/06/21 08:13 1 TAB Sennosides (Senna) 8.6 mg PRN BID PRN 02/03/21 13:30 02/03/21 15:58 8.6 MG Sevoflurane (Ultane) 30 ml STK-MED ONCE 02/02/21 15:09 02/02/21 15:10 DC Sodium Bicarbonate (Sodium Bicarbonate) 650 mg TID 02/03/21 14:00 02/07/21 21:25 650 MG Sodium Chloride 1,000 ml @ 1,000 mls/hr 1X ONCE 02/07/21 13:00 02/07/21 13:59 DC 02/07/21 12:28 1,000 MLS/HR Vancomycin HCl (Vanco Per Pharmacy) 1 each PRN DAILY PRN 02/02/21 08:30 02/07/21 15:49 1 EACH Vancomycin HCl (Vancomycin Random Level) 1 each 1X ONCE 02/03/21 05:00 02/03/21 05:01 DC Vancomycin HCl 500 mg/Sodium Chloride 100 ml @ 100 mls/hr QTUTHSA 02/06/21 16:00 02/06/21 17:35 100 MLS/HR Vancomycin HCl 1 gm/Sodium Chloride 250 ml @ 250 mls/hr 1X ONCE 02/03/21 16:00 02/03/21 16:59 DC 02/03/21 16:55 250 MLS/HR Lab Laboratory Tests Test 02/07/21 10:04 02/07/21 12:20 02/07/21 12:30 02/07/21 12:37 Activated Clotting Time 308 sec (92-181) Sodium Level 138 mmol/L (136-145) Potassium Level 3.6 mmol/L (3.5-5.1) Chloride Level 103 mmol/L (98-107) Carbon Dioxide Level 28 mmol/L (21-32) Anion Gap 7 (6-14) Blood Urea Nitrogen 30 mg/dL (7-20) Creatinine 4.9 mg/dL (0.6-1.0) Estimated GFR (Cockcroft-Gault) 8.9 Glucose Level 84 mg/dL (70-99) Calcium Level 7.5 mg/dL (8.5-10.1) White Blood Count 16.2 x10^3/uL (4.0-11.0) Red Blood Count 2.65 x10^6/uL (3.50-5.40) Hemoglobin 8.2 g/dL (12.0-15.5) Hematocrit 26.7 % (36.0-47.0) Mean Corpuscular Volume 101 fL (79-100) Mean Corpuscular Hemoglobin 31 pg (25-35) Mean Corpuscular Hemoglobin Concent 31 g/dL (31-37) Red Cell Distribution Width 18.2 % (11.5-14.5) Platelet Count 196 x10^3/uL (140-400) Glucose (Fingerstick) 74 mg/dL (70-99) Test 02/07/21 16:49 02/07/21 21:25 Glucose (Fingerstick) 66 mg/dL (70-99) 90 mg/dL (70-99) Results All relevant outside records, renal labs, imaging studies, telemetry/EKG's were reviewed. Justicifation of Admission Dx: Justifications for Admission: Justification of Admission Dx: Yes DAVID BOWMAN MD Feb 08, 2021 09:17
[2021-02-08] MEDS: IV DEXTROSE 5% 1,000 ML IV SCH (09:30)
[2021-02-08] MEDS ORDERED: PHENYLEPHRINE in 0.9% NACL PF 1 MG/10 ML SYRINGE. IV ONE (09:37)
[2021-02-08] MEDS ORDERED: PROPOFOL 10 MG/ML (20ML) VIAL. IV ONE (09:37)
[2021-02-08] MEDS ORDERED: LIDOCAINE 2% PF 5 ML VIAL. ONE (09:37)
[2021-02-08] MEDS ORDERED: ONDANSETRON PF 4 MG/2 ML VIAL. ONE (09:37)
[2021-02-08] MEDS ORDERED: fentaNYL PF VIAL 100 MCG/2 ML VIAL ONE ×2 (09:40→12:06)
[2021-02-08] MEDS: DEXTROSE 50% 25 GM / 50ML DISP.SYRIN. IV PRN (09:56)
[2021-02-08] MEDS ORDERED: PHENYLEPHRINE 10 MG/ML VIAL. ONE ×2 (10:13→10:14)
[2021-02-08] MEDS ORDERED: ALBUMIN HUMAN 5% 500 ML IV ONE (10:17)
[2021-02-08] MEDS: IV NORMAL SALINE 1000ML BAG 1,000 ML IV SCH ×2 (10:25→10:30)
[2021-02-08] MEDS ORDERED: VASOPRESSIN 20 UNIT/ML VIAL. ONE (11:24)
--- NOTE | 2021-02-08 11:25 | NUR ---
Pt transferring to ICU rm 112 post op. Called and gave report to RACHEL Elena.
--- NOTE | 2021-02-08 11:54 | PDOC ---
BRIEF OPERATIVE NOTE Date: Feb 08, 2021 Pre-Op Diagnosis Right foot gangrene PAD Post-Op Diagnosis Same Procedure Performed Right below knee amputation Surgeon Osmin Parr DO Product Development Actuary HALLIE Barbosa Anesthesiologist Stacey Anesthesia Type: General Blood Loss Minimal, 5cc IV Fluid See anesthesia note Specimens Obtained Right lower leg Findings None specific Complications None Immediate Operative Note See dictated op note YOMAIRA MARROQUIN Feb 08, 2021 11:54
--- NOTE | 2021-02-08 12:13 | OP ---
DATE OF SURGERY: 02/08/2021 VASCULAR SURGERY OPERATIVE REPORT ATTENDING SURGEON: Osmin Parr DO ARBORIST CLIMBER: HALLIE Barbosa PREOPERATIVE DIAGNOSIS: Atherosclerosis with gangrene of the right lower extremity. POSTOPERATIVE DIAGNOSIS: Atherosclerosis with gangrene of the right lower extremity. PROCEDURE: Right below-knee amputation. ANESTHESIA: General. SPECIMENS: Right lower extremity. ESTIMATED BLOOD LOSS: 5 mL. COMPLICATIONS: None. PREOPERATIVE INDICATIONS: The patient is a very pleasant 65-year-old female who we have attempted limb salvage of her right lower extremity with multiple angiograms and debridements as well as toe amputations. She demonstrated poor microvascular flow and persistent gangrenous changes of her foot leading to elevated white blood cell count, concerning for worsening infection. We consented her for below-knee amputation in this setting and she understood all risks, benefits, and alternatives of the procedure. Her family was also present during the consent process and all questions were answered to their satisfaction. DESCRIPTION OF PROCEDURE: The patient was brought to the operating suite, placed in supine position. After establishing appropriate general anesthesia, the right lower extremity was prepped and draped in sterile fashion. Next, a timeout procedure was performed. It was confirmed that the patient did receive appropriate perioperative antibiotics and the correct operative site was marked and draped. Following this, a right below-knee amputation incision was made, carried through skin and subcutaneous tissue and our dissection was carried down to the anterior and lateral compartment muscles where the anterior tibial neurovascular bundle was individually identified and ligated and divided. This was done with a suture ligature. Next, the tibia was dissected circumferentially and the fibula was dissected circumferentially. Following this, a bone saw was used to divide the tibia and a bone cutter was used to divide the fibula. Next, an amputation knife was used to divide the remaining soft tissue and our posterior tibial neurovascular bundle was controlled with clamps. Specimen was handed off the field. Next, a suture ligature was used to ligate the posterior tibial neurovascular bundle and Bovie electrocautery was used for hemostasis. Next, the wound was irrigated with antibiotic impregnated saline solution and then after confirming hemostasis and our lap, sponge, needle and instrument count to be correct, then the 2-0 Monocryl suture was used to close the fascia in an interrupted fashion followed by skin alexander for the skin. Sterile dressing was subsequently placed including a compressive wrap. The patient tolerated the procedure well and was transferred to the postanesthesia care unit in stable condition. GERALD DR: Chanel TID: [id number]
[2021-02-08] MEDS: fentaNYL PF VIAL 100 MCG/2 ML VIAL IVP PRN ×3 (12:23→17:50)
[2021-02-08 13:15] LABS: CALCIUM 7.9 mg/dL (8.5-10.1); CREATININE 5.6 mg/dL (0.6-1.0); GFR 7.6; POTASSIUM 3.8 mmol/L (3.5-5.1)
[2021-02-08] MEDS: oxyCODONE IR 5 MG TABLET PO PRN ×2 (13:42→22:46)
[2021-02-08] MEDS ORDERED: CEFEPIME HCL IV Push 2 GM VIAL. IVP SCH (16:00)
[2021-02-08] MEDS: VANCOMYCIN 500 MG in IV NORMAL SALINE 100ML 100 ML IV SCH (17:00)
[2021-02-08] MEDS: ATORVASTATIN CALCIUM 40 MG TABLET. PO SCH (20:37)
[2021-02-08] MEDS: LATANOPROST 0.005% OPHTH SOLUTION 2.5ML BOTTLE. OU SCH (22:46)
[2021-02-09] VITALS (23 sets, daily range): BP systolic 61–122; BP diastolic 30–55
[2021-02-09] MEDS: fentaNYL PF VIAL 100 MCG/2 ML VIAL IVP PRN ×2 (02:39→17:42)
[2021-02-09] MEDS: IV DEXTROSE 5% 1,000 ML IV SCH (02:42)
[2021-02-09] MEDS ORDERED: IV NORMAL SALINE 1000ML BAG 1,000 ML IV ONE (03:15)
[2021-02-09] MEDS: NOREPINEPHRINE VIAL 8 MG in IV DEXTROSE 5% 250 ML IV PRN ×2 (04:23→15:32)
--- NOTE | 2021-02-09 04:27 | NUR ---
Nursing note: Earlier in shift, A-line with no waveform, square wave test dampened, unable to pull back blood, A-line removed. Unable to get BP with automatic cuff. R arm swollen and weeping. Pulses present in left leg, confirmed with doppler. Able to doppler around [address] Mcpherson notified, orders for fluid and levophed if not improved with bolus. Patient asymptomatic for low bp, Alert and Oriented. Complains of some pain in R BKA site. SR with frequent PVCs noted. Awaiting lab draws.
[2021-02-09] MEDS: LEVOTHYROXINE 100 MCG TABLET PO SCH (06:45)
[2021-02-09] MEDS: MIDODRINE 5 MG TABLET PO PRN (06:45)
[2021-02-09] MEDS: FUROSEMIDE 80 MG TABLET. PO SCH (09:00)
[2021-02-09] MEDS: LISINOPRIL 20 MG TABLET PO SCH (09:00)
--- NOTE | 2021-02-09 09:06 | PDOC ---
Infectious Disease Note Subjective Subjective Patient is awake able to communicate in ICU ROS ROS No nausea vomiting diarrhea chest pain shortness of breath abdominal pain Vital Sign Vital Signs Vital Signs Date Time Temp Pulse Resp B/P (MAP) Pulse Ox O2 Delivery O2 Flow Rate FiO2 02/09/21 06:45 71 73/54 02/09/21 06:00 17 97 Room Air 02/09/21 04:00 97.6 97.6 02/09/21 03:09 2.0 Physical Exam PHYSICAL EXAM GENERAL: Alert and oriented x 3 female, lying in bed comfortably, in no acute distress. HEENT: Normocephalic, atraumatic and anicteric. No thrush. Oral mucosa moist. NECK: Supple. LUNGS: Clear bilaterally. No wheezing. HEART: S1, S2. No murmurs. ABDOMEN: Soft, nontender, and nondistended. EXTREMITIES: Right BKA BACK: Reveals normal curvature. No CVA tenderness. NEUROLOGIC: Alert and oriented x 3, grossly nonfocal. PSYCHIATRIC: Calm and cooperative. Labs Lab Laboratory Tests Test 02/08/21 09:23 02/08/21 10:10 02/08/21 11:23 02/08/21 12:35 Glucose (Fingerstick) 67 mg/dL (70-99) 110 mg/dL (70-99) 92 mg/dL (70-99) Sodium Level 138 mmol/L (136-145) Potassium Level 3.8 mmol/L (3.5-5.1) Chloride Level 102 mmol/L (98-107) Carbon Dioxide Level 24 mmol/L (21-32) Anion Gap 12 (6-14) Blood Urea Nitrogen 32 mg/dL (7-20) Creatinine 5.6 mg/dL (0.6-1.0) Estimated GFR (Cockcroft-Gault) 7.6 Glucose Level 99 mg/dL (70-99) Calcium Level 7.9 mg/dL (8.5-10.1) Albumin 1.6 g/dL (3.4-5.0) Micro Microbiology 02/01/21 Blood Culture - Preliminary, Resulted NO GROWTH AFTER 3 DAYS Objective Assessment 1. Right fifth toe gangrene with right lateral and right heel wounds. Ray amputation of the right fifth toe including the metatarsal head I and D of the right heel February 02, 2021 now status post BKA Cultures not available 2. Peripheral vascular disease, status post angioplasty at on 01/16/2021. 3. End-stage renal disease, on hemodialysis. 4. Diabetes with neuropathy. 5. Protein-calorie malnutrition. 6. Abnormal LFTs. 7. Anemia. Plan Plan of Care Supportive care Patient is still on vasopressor support Continue antibiotics until stable and then can be discontinued since the infected foot is gone STEVE AGUILAR MD Feb 09, 2021 09:06
[2021-02-09] MEDS: PANTOPRAZOLE 40 MG TABLET.DR. PO SCH (09:13)
[2021-02-09] MEDS: SENNOSIDES/DOCUSATE 8.6/50MG TABLET. PO SCH (09:13)
[2021-02-09] MEDS: FERROUS SULFATE 325 MG TABLET. PO SCH (09:13)
[2021-02-09] MEDS: MULTIVITAMIN with MINERAL TABLET. PO SCH (09:13)
[2021-02-09] MEDS: ASPIRIN ENTERIC COATED 81 MG TABLET.DR. PO SCH (09:13)
[2021-02-09] MEDS: PRAMIPEXOLE 0.25 MG TABLET. PO SCH (09:13)
[2021-02-09] MEDS: MIDODRINE 2.5 MG TABLET PO SCH ×3 (09:14→18:12)
[2021-02-09] MEDS: LACTOBACILLUS RHAMNOSUS GG 1 CAPSULE. PO SCH ×2 (09:14→20:29)
[2021-02-09] MEDS: SODIUM BICARBONATE 650 MG TABLET. PO SCH ×3 (09:14→18:09)
[2021-02-09] MEDS: ALLOPURINOL 100 MG TABLET. PO SCH (09:14)
[2021-02-09] MEDS: CLOPIDOGREL BISULFATE 75 MG TABLET PO SCH (09:14)
[2021-02-09] MEDS: CALCIUM CARBONATE 500 MG TABLET PO SCH ×3 (09:14→18:09)
[2021-02-09] MEDS: FLUDROCORTISONE 0.1 MG TABLET PO SCH (09:15)
[2021-02-09] MEDS: ANASTROZOLE 1 MG TABLET PO SCH (09:15)
[2021-02-09 10:15] LABS: BASO # 0.1 x10^3/uL (0.0-0.2); BASO % 0 % (0-3); EOS % 0 % (0-3); HEMATOCRIT 28.7 % (36.0-47.0); LYMPH # 0.4 x10^3/uL (1.0-4.8); LYMPH % 3 % (24-48); MEAN CORPUSCULAR HEMOGLOBIN 31 pg (25-35); MEAN CORPUSCULAR HGB CONC 31 g/dL (31-37); MEAN CORPUSCULAR VOLUME 99 fL (79-100); MONO # 0.4 x10^3/uL (0.0-1.1); MONO % 3 % (0-9); NEUT # 15.4 x10^3/uL (1.8-7.7); NEUT % 95 % (31-73); PLATELET COUNT 282 x10^3/uL (140-400); RED BLOOD COUNT 2.89 x10^6/uL (3.50-5.40); WHITE BLOOD COUNT 16.3 x10^3/uL (4.0-11.0)
--- NOTE | 2021-02-09 10:33 | PDOC ---
Renal-Progress Notes Subjective Notes Notes NO NEW COMPLAINTS History of Present Illness Hx of present illness TRANSFERRED TO ICU FOR LOW BP YESTERDAY Vitals Vitals Vital Signs Date Time Temp Pulse Resp B/P (MAP) Pulse Ox O2 Delivery O2 Flow Rate FiO2 02/09/21 09:14 78 98/34 02/09/21 09:00 20 97 Room Air 02/09/21 08:00 97.5 97.5 02/09/21 03:09 2.0 Weight Weight [ ] I.O. Intake and Output Intake and Output 02/09/21 07:00 Intake Total 2373 ml Output Total 6 ml Balance 2367 ml Intake Oral 280 ml IV Total 2093 ml Output Urine Total 1 ml Estimated Blood Loss 5 ml # Voids 1 # Bowel Movements 1 Labs Labs Laboratory Tests Test 02/08/21 11:23 02/08/21 12:35 02/09/21 09:09 02/09/21 09:55 Glucose (Fingerstick) 92 mg/dL (70-99) 121 mg/dL (70-99) Sodium Level 138 mmol/L (136-145) Potassium Level 3.8 mmol/L (3.5-5.1) Chloride Level 102 mmol/L (98-107) Carbon Dioxide Level 24 mmol/L (21-32) Anion Gap 12 (6-14) Blood Urea Nitrogen 32 mg/dL (7-20) Creatinine 5.6 mg/dL (0.6-1.0) Estimated GFR (Cockcroft-Gault) 7.6 Glucose Level 99 mg/dL (70-99) Calcium Level 7.9 mg/dL (8.5-10.1) Albumin 1.6 g/dL (3.4-5.0) White Blood Count 16.3 x10^3/uL (4.0-11.0) Red Blood Count 2.89 x10^6/uL (3.50-5.40) Hemoglobin 9.0 g/dL (12.0-15.5) Hematocrit 28.7 % (36.0-47.0) Mean Corpuscular Volume 99 fL (79-100) Mean Corpuscular Hemoglobin 31 pg (25-35) Mean Corpuscular Hemoglobin Concent 31 g/dL (31-37) Red Cell Distribution Width 18.0 % (11.5-14.5) Platelet Count 282 x10^3/uL (140-400) Neutrophils (%) (Auto) 95 % (31-73) Lymphocytes (%) (Auto) 3 % (24-48) Monocytes (%) (Auto) 3 % (0-9) Eosinophils (%) (Auto) 0 % (0-3) Basophils (%) (Auto) 0 % (0-3) Neutrophils # (Auto) 15.4 x10^3/uL (1.8-7.7) Lymphocytes # (Auto) 0.4 x10^3/uL (1.0-4.8) Monocytes # (Auto) 0.4 x10^3/uL (0.0-1.1) Eosinophils # (Auto) 0.0 x10^3/uL (0.0-0.7) Basophils # (Auto) 0.1 x10^3/uL (0.0-0.2) Micro Micro Microbiology 02/01/21 Blood Culture - Final, Complete NO GROWTH AFTER 5 DAYS Review of Systems Constitutional: yes: weakness, alert Eyes: Yes: no symptom reported Pulmonary: Yes no symptom reported Cardiovascular: Yes no symptom reported Gastrointestional: Yes: constipation Genitourinary: Yes: no symptom reported Musculoskeletal: Yes: foot pain Skin: Yes no symptom reported Psychiatric/Neurological: Yes: no symptom reported Endocrine: Yes: no symptom reported Hematologic/Lymphatic: Yes: no symptom reported Physical Exam General Appearance: no apparent distress Skin: warm Respiratory: bilateral CTA Heart: S1S2 Abdomen: soft, bowel sounds present Genitourinary: bladder flat Extremities: pulses present, atrophy Neurology: alert, oriented Assessment Assessment IMP ESRD ANEMIA DM II HTN R FOOT TOE GANGRENE-S/P RAY AMP 5TH TOE SEPSIS HYPOTENSION PLAN NO HD SINCE FRI HELD HD YESTERDAY DUE TO LOW BP HD TOMORROW ANTIBIOTICS CONT ANNIA WILL FOLLOW CHUYITA TINAJERO MD Feb 09, 2021 10:33
[2021-02-09 10:40] LABS: ALBUMIN/GLOBULIN RATIO 0.4 (1.0-1.7); CALCIUM 7.5 mg/dL (8.5-10.1); CREATININE 5.8 mg/dL (0.6-1.0); GFR 7.3; POTASSIUM 4.6 mmol/L (3.5-5.1); TOTAL BILIRUBIN 0.4 mg/dL (0.2-1.0); TOTAL PROTEIN 3.4 g/dL (6.4-8.2)
--- NOTE | 2021-02-09 13:09 | PDOC ---
Provider Note Date of Service: DATE: 02/09/21 TIME: 13:03 Provider Note Provider Note Vascular: S: Pt resting comfortably in bed, RN continues to have struggle getting accurate BP after art line stopped working last night. She is awake, eating lunch and complaining about not being able to eat the regular food because of not having the ability to chew it. Requests soft foot only. She denies any pain at all today. Hb 9.0 today. WBC 16.3 O: VSS, with labile and questionable blood pressures AWake, alert, in no apparent distress Room air, respirations nonlabored Right BKA dressing clean, dry and intact. Knee extends fully. A/P: 1. Diabetes mellitus with complication of nephropathy on dialysis 2. Peripheral arterial disease 3. Right foot nonhealing 5th toe amputation and heel ulceration S/p Right SFA angioplasty POD#1 of right BKA - Doing well post operatively. Pain well controlled. - Rigid rooke boot has been ordered - PT/OT - educated pt on knee extension exercises - Continue plavix Justicifation of Admission Dx: Justifications for Admission: Justification of Admission Dx: Yes YOMAIRA MARROQUIN Feb 09, 2021 13:09 COCO CASON MD Feb 10, 2021 13:29
--- NOTE | 2021-02-09 13:57 | RAD ---
EXAMINATION: US DPLX VENOUS EXTREMITY UPPER RT (UPPER EXTREMITY VENOUS ULTRASOUND) CLINICAL HISTORY: Right upper extremity edema TECHNIQUE: Sonographic grayscale images obtained of the right upper extremity deep venous system with color flow Doppler, compression, and augmentation techniques as indicated. Images obtained and stor ed in a permanent archive. COMPARISON: None FINDINGS: No evidence of absent flow or incompressibility within the internal jugular, subclavian, axillary, an d brachial veins. Visualized radial and ulnar veins appear patent on limited evaluation. No evidence of absent flow or incompressibility within the superficial basilic and cephalic veins. Subcutaneous edema, most pronounced in the forearm. IMPRESSION: No evidence of right upper extremity DVT. Electronically signed by: Yunier De León DO (02/09/2021 1:55 PM) KELI
--- NOTE | 2021-02-09 14:16 | PDOC ---
[employer] PROGRESS NOTE Date of Service DOS: DATE: 02/09/21 TIME: 14:15 Chief Complaint Chief Complaint s/p amputation, now has hypotension, treating mild shock, as sepsis, fluid balance OK on levaphed, in ICU Right fifth toe gangrene with right lateral and right heel wounds - s/p Ray amputation of the right fifth toe including the metatarsal head I and D of the right heel February 02, 2021 Peripheral vascular disease, status post angioplasty at on 01/16/2021. End-stage renal disease, on hemodialysis. Diabetes with neuropathy. Protein-calorie malnutrition. Abnormal LFTs. Anemia. History of Present Illness History of Present Illness 10.15, prior hypotnesion days agoo too, in ICU surg went well, limb was not able to be salvaged, BKA done pt in good spiritis, eating well Ms Ruelas is a 65-year-old female with history of diabetes; hypertension; coronary artery disease; CABG; end-stage renal disease, on dialysis; peripheral vascular disease, who underwent angiogram and angioplasty of the right anterior tibial artery at on 01/16/2021 who presented to the ER with complaints of wounds of the right lower extremity for a couple of weeks. She denies any history of injury. Denies fevers, chills, nausea, vomiting, diarrhea, headache, sore throat, difficulty swallowing, shortness of breath, or cough. 02/07: hypotension after angio, will bolus 1 liter and give fludro, Continue IV abx, ID following, on zosyn. Vasc plans limb salvage surg Overnight no events. She has been noticing some pill esophagitis having to suction to clear her own secretions. Right leg pain has improved. Afebrile. Vitals/I&O Vitals/I&O: Vital Signs Date Time Temp Pulse Resp B/P (MAP) Pulse Ox O2 Delivery O2 Flow Rate FiO2 02/09/21 11:00 71 20 90/39 (56) 94 Room Air 02/09/21 08:00 97.5 97.5 02/09/21 03:09 2.0 I & O 02/08/21 02/08/21 02/09/21 15:00 23:00 07:00 Intake Total 0 ml 750 ml 1623 ml Output Total 6 ml 0 ml 0 ml Balance -6 ml 750 ml 1623 ml Physical Exam Physical Exam: GENERAL: Alert and oriented x 3 female, lying in bed comfortably, in no acute distress. HEENT: Normocephalic, atraumatic and anicteric. No thrush. Oral mucosa moist. NECK: Supple. LUNGS: Clear bilaterally. No wheezing. HEART: S1, S2. No murmurs. ABDOMEN: Soft, nontender, and nondistended. EXTREMITIES: Right BKA BACK: Reveals normal curvature. No CVA tenderness. NEUROLOGIC: Alert and oriented x 3, grossly nonfocal. PSYCHIATRIC: Calm and cooperative. General: Alert, Oriented X3, Cooperative Heart: Regular rate, Normal S1, Normal S2, No murmurs, Gallops Lungs: Clear Abdomen: Normal bowel sounds, Soft, No tenderness, No hepatosplenomegaly, No masses Extremities: Other Labs Labs: Laboratory Tests Test 02/09/21 09:09 02/09/21 09:55 02/09/21 12:28 Glucose (Fingerstick) 121 mg/dL (70-99) 247 mg/dL (70-99) White Blood Count 16.3 x10^3/uL (4.0-11.0) Red Blood Count 2.89 x10^6/uL (3.50-5.40) Hemoglobin 9.0 g/dL (12.0-15.5) Hematocrit 28.7 % (36.0-47.0) Mean Corpuscular Volume 99 fL (79-100) Mean Corpuscular Hemoglobin 31 pg (25-35) Mean Corpuscular Hemoglobin Concent 31 g/dL (31-37) Red Cell Distribution Width 18.0 % (11.5-14.5) Platelet Count 282 x10^3/uL (140-400) Neutrophils (%) (Auto) 95 % (31-73) Lymphocytes (%) (Auto) 3 % (24-48) Monocytes (%) (Auto) 3 % (0-9) Eosinophils (%) (Auto) 0 % (0-3) Basophils (%) (Auto) 0 % (0-3) Neutrophils # (Auto) 15.4 x10^3/uL (1.8-7.7) Lymphocytes # (Auto) 0.4 x10^3/uL (1.0-4.8) Monocytes # (Auto) 0.4 x10^3/uL (0.0-1.1) Eosinophils # (Auto) 0.0 x10^3/uL (0.0-0.7) Basophils # (Auto) 0.1 x10^3/uL (0.0-0.2) Sodium Level 137 mmol/L (136-145) Potassium Level 4.6 mmol/L (3.5-5.1) Chloride Level 103 mmol/L (98-107) Carbon Dioxide Level 22 mmol/L (21-32) Anion Gap 12 (6-14) Blood Urea Nitrogen 37 mg/dL (7-20) Creatinine 5.8 mg/dL (0.6-1.0) Estimated GFR (Cockcroft-Gault) 7.3 BUN/Creatinine Ratio 6 (6-20) Glucose Level 158 mg/dL (70-99) Calcium Level 7.5 mg/dL (8.5-10.1) Total Bilirubin 0.4 mg/dL (0.2-1.0) Aspartate Amino Transf (AST/SGOT) 40 U/L (15-37) Alanine Aminotransferase (ALT/SGPT) 89 U/L (14-59) Alkaline Phosphatase 71 U/L (46-116) Total Protein 3.4 g/dL (6.4-8.2) Albumin 1.0 g/dL (3.4-5.0) Albumin/Globulin Ratio 0.4 (1.0-1.7) Assessment and Plan Assessmemt and Plan Problems Medical Problems: (1) End stage kidney disease Status: Acute (2) Leukocytosis Status: Acute (3) Right foot infection Status: Acute Comment Review of Relevant I have reviewed the following items mimi (where applicable) has been applied. Medications: Current Medications Medications (Trade) Dose Ordered Sig/Michelle Route PRN Reason Start Time Stop Time Status Last Admin Dose Admin Cefepime HCl (Maxipime) 2 gm QTH IVP 02/08/21 16:00 02/08/21 16:00 Sodium Chloride 1,000 ml @ 1,000 mls/hr 1X ONCE IV 02/09/21 03:15 02/09/21 04:14 DC 02/09/21 03:20 Norepinephrine Bitartrate 8 mg/ Dextrose 258 ml @ 20.472 mls/ hr CONT PRN IV PER PROTOCOL 02/09/21 03:15 02/09/21 04:23 Justifications for Admission Other Justification PRETTY TRACY MD Feb 09, 2021 14:16
--- NOTE | 2021-02-09 15:19 | NUR ---
SS following for discharge planning. SS reviewed pt chart and discussed with pt RN. Pt is currently on room air. COVID19 negative. Pt had right BKA. Pt on IV Cefepime and IV Vancomycin. Levophed. Pt has outpatient hemodialysis Friday, , and Friday at [facility]. PT/OT needing to evaluate once medically stable to participate. SS will continue to follow for discharge planning.
[2021-02-09] MEDS ORDERED: DEXTROSE 50% 25 GM / 50ML DISP.SYRIN. IV PRN (18:45)
[2021-02-09] MEDS: ATORVASTATIN CALCIUM 40 MG TABLET. PO SCH (20:29)
[2021-02-09] MEDS: EPOETIN ALFA-EPBX for ESRD 20,000 UNIT/ML VIAL. SQ SCH (20:29)
[2021-02-09] MEDS: oxyCODONE IR 5 MG TABLET PO PRN (20:30)
[2021-02-09] MEDS: LATANOPROST 0.005% OPHTH SOLUTION 2.5ML BOTTLE. OU SCH (20:31)
[2021-02-10] VITALS (24 sets, daily range): BP systolic 77–150; BP diastolic 30–98
[2021-02-10] MEDS: NOREPINEPHRINE VIAL 8 MG in IV DEXTROSE 5% 250 ML IV PRN (02:46)
[2021-02-10] MEDS: oxyCODONE/APAP 5/325 1 TAB TABLET PO PRN ×2 (04:05→10:18)
[2021-02-10] MEDS: LEVOTHYROXINE 100 MCG TABLET PO SCH (05:44)
[2021-02-10] MEDS ORDERED: DIALYSIS PATIENT. MC PRN (06:45)
[2021-02-10] MEDS ORDERED: IV NORMAL SALINE 1000ML BAG 1,000 ML IV PRN ×2 (06:45)
[2021-02-10] MEDS: FUROSEMIDE 80 MG TABLET. PO SCH (09:00)
[2021-02-10] MEDS: LISINOPRIL 20 MG TABLET PO SCH (09:00)
[2021-02-10] MEDS ORDERED: LIDOCAINE/PRILOCAINE TOPICAL CREAM 5GM TUBE. TP ONE (09:15)
[2021-02-10 09:44] LABS: CALCIUM 7.6 mg/dL (8.5-10.1); CREATININE 6.4 mg/dL (0.6-1.0); GFR 6.5
[2021-02-10] MEDS: MULTIVITAMIN with MINERAL TABLET. PO SCH (10:18)
[2021-02-10] MEDS: ALLOPURINOL 100 MG TABLET. PO SCH (10:19)
[2021-02-10] MEDS: CALCIUM CARBONATE 500 MG TABLET PO SCH ×2 (10:19→18:38)
[2021-02-10] MEDS: LACTOBACILLUS RHAMNOSUS GG 1 CAPSULE. PO SCH ×2 (10:19→21:10)
[2021-02-10] MEDS: PANTOPRAZOLE 40 MG TABLET.DR. PO SCH (10:19)
[2021-02-10] MEDS: SODIUM BICARBONATE 650 MG TABLET. PO SCH ×3 (10:19→21:10)
[2021-02-10] MEDS: CLOPIDOGREL BISULFATE 75 MG TABLET PO SCH (10:19)
[2021-02-10] MEDS: ASPIRIN ENTERIC COATED 81 MG TABLET.DR. PO SCH (10:19)
[2021-02-10] MEDS: MIDODRINE 2.5 MG TABLET PO SCH ×3 (10:20→18:40)
[2021-02-10] MEDS: SENNOSIDES/DOCUSATE 8.6/50MG TABLET. PO SCH (10:20)
[2021-02-10] MEDS: FERROUS SULFATE 325 MG TABLET. PO SCH (10:20)
[2021-02-10] MEDS: FLUDROCORTISONE 0.1 MG TABLET PO SCH (10:20)
[2021-02-10] MEDS: ANASTROZOLE 1 MG TABLET PO SCH (10:22)
[2021-02-10] MEDS: PRAMIPEXOLE 0.25 MG TABLET. PO SCH (10:23)
[2021-02-10] MEDS: INSULIN LISPRO 300 UNITS/3 ML VIAL. SQ SCH ×3 (10:50→18:41)
[2021-02-10] MEDS ORDERED: IV NORMAL SALINE 500ML BAG 500 ML IV ONE (12:45)
--- NOTE | 2021-02-10 13:21 | PDOC ---
[employer] PROGRESS NOTE Date of Service DOS: DATE: 02/10/21 TIME: 13:19 Chief Complaint Chief Complaint s/p amputation, now has hypotension, treating mild shock, as sepsis, fluid balance OK on levaphed, in ICU Right fifth toe gangrene with right lateral and right heel wounds - s/p Ray amputation of the right fifth toe including the metatarsal head I and D of the right heel February 02, 2021 Peripheral vascular disease, status post angioplasty at on 01/16/2021. End-stage renal disease, on hemodialysis. Diabetes with neuropathy. Protein-calorie malnutrition. Abnormal LFTs. Anemia. History of Present Illness History of Present Illness 02/10, BP still low, needs HD today, will give 500 mls bolus weaknes, lethargy, right arm swelling is much better 10.15, prior hypotnesion days agoo too, in ICU surg went well, limb was not able to be salvaged, BKA done pt in good spiritis, eating well Ms Ruelas is a 65-year-old female with history of diabetes; hypertension; coronary artery disease; CABG; end-stage renal disease, on dialysis; peripheral vascular disease, who underwent angiogram and angioplasty of the right anterior tibial artery at on 01/16/2021 who presented to the ER with complaints of wounds of the right lower extremity for a couple of weeks. She denies any history of injury. Denies fevers, chills, nausea, vomiting, diarrhea, headache, sore throat, difficulty swallowing, shortness of breath, or cough. 02/07: hypotension after angio, will bolus 1 liter and give fludro, Continue IV abx, ID following, on zosyn. Vas plans limb salvage surg Overnight no events. She has been noticing some pill esophagitis having to suction to clear her own secretions. Right leg pain has improved. Afebrile. Vitals/I&O Vitals/I&O: Vital Signs Date Time Temp Pulse Resp B/P (MAP) Pulse Ox O2 Delivery O2 Flow Rate FiO2 02/10/21 11:00 80 17 81/41 (54) 97 Room Air 02/10/21 10:18 2.0 02/10/21 08:00 97.8 97.8 I & O 02/09/21 02/09/21 02/10/21 15:00 23:00 07:00 Intake Total 960 ml 780 ml Output Total 0 ml 0 ml Balance 960 ml 0 ml 780 ml Physical Exam Physical Exam: GENERAL: Alert and oriented x 3 female, lying in bed comfortably, in no acute distress. HEENT: Normocephalic, atraumatic and anicteric. No thrush. Oral mucosa moist. NECK: Supple. LUNGS: Clear bilaterally. No wheezing. HEART: S1, S2. No murmurs. ABDOMEN: Soft, nontender, and nondistended. EXTREMITIES: Right BKA BACK: Reveals normal curvature. No CVA tenderness. NEUROLOGIC: Alert and oriented x 3, grossly nonfocal. PSYCHIATRIC: Calm and cooperative. General: Alert, Oriented X3, Cooperative Heart: Regular rate, Normal S1, Normal S2, No murmurs, Gallops Lungs: Clear Abdomen: Normal bowel sounds, Soft, No tenderness, No hepatosplenomegaly, No masses Extremities: Other Labs Labs: Laboratory Tests Test 02/09/21 18:14 02/10/21 09:20 Glucose (Fingerstick) 339 mg/dL (70-99) Sodium Level 133 mmol/L (136-145) Potassium Level 5.0 mmol/L (3.5-5.1) Chloride Level 98 mmol/L (98-107) Carbon Dioxide Level 21 mmol/L (21-32) Anion Gap 14 (6-14) Blood Urea Nitrogen 40 mg/dL (7-20) Creatinine 6.4 mg/dL (0.6-1.0) Estimated GFR (Cockcroft-Gault) 6.5 Glucose Level 275 mg/dL (70-99) Calcium Level 7.6 mg/dL (8.5-10.1) Assessment and Plan Assessmemt and Plan Problems Medical Problems: (1) End stage kidney disease Status: Acute (2) Leukocytosis Status: Acute (3) Right foot infection Status: Acute Comment Review of Relevant I have reviewed the following items mimi (where applicable) has been applied. Medications: Current Medications Medications (Trade) Dose Ordered Sig/Michelle Route PRN Reason Start Time Stop Time Status Last Admin Dose Admin Insulin Human Lispro (HumaLOG) 0-7 UNITS TIDWMEALS SQ 02/10/21 08:00 02/10/21 10:50 Justifications for Admission Other Justification PRETTY TRACY MD Feb 10, 2021 13:21
--- NOTE | 2021-02-10 13:49 | PDOC ---
DATE OF SERVICE DATE: 02/10/21 TIME: 13:42 SUBJECTIVE ROS Stable, BP's in 90's systolic , currently on low dose Levophed OBJECTIVE Vital Signs Vital Signs Date Time Temp Pulse Resp B/P (MAP) Pulse Ox O2 Delivery O2 Flow Rate FiO2 02/10/21 11:00 80 17 81/41 (54) 97 Room Air 02/10/21 10:18 2.0 02/10/21 08:00 97.8 97.8 I & 0 Intake and Output 02/10/21 07:00 Intake Total 1740 ml Output Total 0 ml Balance 1740 ml Intake Oral 1260 ml IV Total 480 ml Output Urine Total 0 ml # Bowel Movements 1 PHYSICAL EXAM Physical Exam GENERAL: no acute distress. HEENT: Normocephalic, atraumatic and anicteric. Oral mucosa moist. NECK: Supple. LUNGS: Clear bilaterally. Non labored HEART: S1, S2. No murmurs. ABDOMEN: Soft, nontender, and nondistended. EXTRM: Right foot wound (per ID and vascular) NEURO: Alert and oriented x 3, grossly nonfocal. DIAGNOSIS/ASSESSMENT Assessment & Plan ESRD on HD TTS @ [facility] , last dialysis was Friday, held and Yest 2/2 Hypotension . Dialysis today . Discussed treatment plan with [facility] ; she recently started PD as well but had to switch to HD 2/2 Fluid retention .Avoid PICC /Mid line Anemia - ANNIA Gangrene right 5th toe/lateral foot and right heel - S/P Ray amputation of the right fifth toe including the metatarsal head. Rt BKA 02/08 -. Post procedure hypotensive - in ICU since HTN - Hypotensive since BKA requiring pressor support DM per primary COMMENT/RELEVANT DATA Meds Current Medications Medications (Trade) Dose Ordered Sig/Michelel Start Time Stop Time Status Last Admin Dose Admin Acetaminophen (Tylenol) 650 mg PRN Q6HRS PRN 02/03/21 13:30 Albumin Human 500 ml @ As Directed STK-MED ONCE 02/08/21 10:17 02/08/21 10:17 DC Allopurinol (Zyloprim) 100 mg DAILY 02/03/21 14:00 02/10/21 10:19 100 MG Amlodipine Besylate (Norvasc) 5 mg DAILY 02/03/21 14:00 02/05/21 09:46 5 MG Anastrozole (Arimidex) 1 mg DAILY 02/03/21 14:00 02/10/21 10:22 1 MG Aspirin (Ecotrin) 81 mg DAILY 02/04/21 09:00 02/10/21 10:19 81 MG Atorvastatin Calcium (Lipitor) 80 mg HS 02/03/21 21:00 02/09/21 20:29 80 MG Calcium Carbonate/ Glycine (Oscal) 750 mg BIDWMEALS 02/03/21 17:00 02/10/21 10:19 750 MG Cefazolin Sodium 1 gm/Sodium Chloride 500 ml @ 500 mls/hr 1X ONCE 02/08/21 06:00 02/08/21 06:59 DC 02/08/21 12:35 Cefepime HCl (Maxipime) 3 gm QSA 02/10/21 16:00 Clopidogrel Bisulfate (Plavix) 75 mg DAILY 02/04/21 09:00 02/10/21 10:19 75 MG Desflurane (Suprane) 30 ml STK-MED ONCE 02/02/21 15:09 02/02/21 15:10 DC Dexamethasone Sodium Phosphate (Decadron) 4 mg STK-MED ONCE 02/02/21 15:09 02/02/21 15:09 DC Dextrose (Dextrose 50%-Water Syringe) 12.5 gm PRN Q15MIN PRN 02/09/21 18:45 Ephedrine Sulfate (ePHEDrine PF IN SALINE SYRINGE) 50 mg STK-MED ONCE 02/02/21 15:00 02/02/21 15:00 DC Epoetin Galileo-epbx (RETACRIT for ESRD PTS) 10,000 unit MoWeFr@2100 02/02/21 21:00 02/09/21 20:29 10,000 UNIT Fentanyl Citrate (Fentanyl 2ml Vial) 25 mcg PRN Q1HR PRN 02/08/21 13:45 02/08/21 17:50 25 MCG Ferrous Sulfate (Feosol) 325 mg DAILYWBKFT 02/03/21 14:00 02/10/21 10:20 325 MG Fludrocortisone Acetate (Florinef) 0.1 mg DAILY 02/07/21 13:30 02/10/21 10:20 0.1 MG Furosemide (Lasix) 80 mg DAILY 02/03/21 14:00 02/05/21 09:47 80 MG Heparin Sodium (Porcine) (Heparin Sodium) 8,000 unit 1X ONCE 02/07/21 10:00 02/07/21 10:01 DC 02/07/21 09:50 10,000 UNIT Heparin Sodium/ Sodium Chloride (HEPARIN for ARTERIAL LINE FLUSH) 1,000 unit 1X ONCE 02/07/21 08:30 02/07/21 08:31 DC 02/07/21 08:30 1,000 UNIT Hydromorphone HCl (Dilaudid) 0.5 mg PRN Q10MIN PRN 02/08/21 06:00 02/09/21 05:59 DC Info (CONTRAST GIVEN -- Rx MONITORING) 1 each PRN DAILY PRN 02/07/21 08:45 02/09/21 08:44 DC Info (PHARMACY MONITORING -- do not chart) 1 each PRN DAILY PRN 02/10/21 06:45 Insulin Glargine (Lantus Syringe) 10 unit QHS 02/03/21 21:00 02/06/21 07:54 DC 02/04/21 22:36 10 UNIT Insulin Human Lispro (HumaLOG) 0-7 UNITS TIDWMEALS 02/10/21 08:00 02/10/21 10:50 6 UNITS Insulin Human Regular (HumuLIN R VIAL) 100 unit TIDAC 02/03/21 16:30 02/03/21 13:32 DC Iodixanol (Visipaque 320) 100 ml 1X ONCE 02/07/21 08:30 02/07/21 08:31 DC 02/07/21 11:16 60 ML Lactobacillus Rhamnosus (Culturelle) 1 cap BID 02/05/21 12:00 02/10/21 10:19 1 CAP Latanoprost (Xalatan) 1 drop QHS 02/03/21 21:00 02/09/21 20:31 1 DROP Levothyroxine Sodium (Synthroid) 200 mcg DAILY06 02/03/21 14:00 02/10/21 05:44 200 MCG Lidocaine HCl (Lidocaine 1% 20ml Vial) 20 ml 1X ONCE 02/07/21 08:30 02/07/21 08:31 DC 02/07/21 09:25 16 ML Lidocaine HCl (Lidocaine Pf 2% Vial) 5 ml STK-MED ONCE 02/08/21 09:37 02/08/21 09:37 DC Lidocaine/ Prilocaine (Emla) 1 pallavi 1X PRN ONCE 02/10/21 09:15 02/10/21 09:33 DC Lisinopril (Prinivil) 20 mg DAILY 02/03/21 14:00 02/05/21 09:45 20 MG Methocarbamol (Robaxin) 500 mg PRN Q8HRS PRN 02/03/21 13:30 02/06/21 07:54 DC Midazolam HCl (Versed) 2 mg 1X ONCE 02/07/21 08:30 02/07/21 08:31 DC 02/07/21 09:44 2 MG Midodrine (Proamatine) 5 mg PRN DAILY PRN 02/06/21 08:15 02/09/21 06:45 5 MG Morphine Sulfate (Morphine Sulfate) 1 mg PRN Q10MIN PRN 02/08/21 06:00 02/09/21 05:59 DC Multivitamins (Thera M Plus) 1 tab DAILY 02/07/21 14:00 02/10/21 10:18 1 TAB Nitroglycerin (Nitroglycerin) 200 mcg STK-MED ONCE 02/07/21 08:44 02/07/21 08:44 DC Non-Formulary Medication (Amlodipine Besylate/ Benazepril (Amlodipine-Benazepril 5-20 Mg)) 1 cap DAILY 02/04/21 09:00 UNV Non-Formulary Medication (Omeprazole Magnesium (Prilosec Otc)) 1 tab DAILY 02/04/21 09:00 UNV Non-Formulary Medication (Pregabalin (Lyrica)) 150 mg Q3DAYS 02/06/21 09:00 UNV Norepinephrine Bitartrate 8 mg/ Dextrose 258 ml @ 20.472 mls/ hr CONT PRN 02/09/21 03:15 02/10/21 02:46 20.472 MLS/HR Ondansetron HCl (Zofran Odt) 4 mg Q6HRS PRN 02/03/21 13:45 02/06/21 15:18 4 MG Ondansetron HCl (Zofran) 4 mg STK-MED ONCE 02/08/21 09:37 02/08/21 09:37 DC Oxycodone HCl (Roxicodone) 5 mg PRN Q6HRS PRN 02/03/21 14:15 UNV Oxycodone/ Acetaminophen (Percocet 5/325) 2 tab PRN Q4HRS PRN 02/07/21 11:45 Pantoprazole Sodium (Protonix) 40 mg DAILYAC 02/03/21 14:00 02/10/21 10:19 40 MG Phenylephrine HCl (Elvis-Synephrine Inj) 10 mg STK-MED ONCE 02/08/21 10:14 02/08/21 10:14 DC Phenylephrine HCl (PHENYLEPHRINE in 0.9% NACL PF) 1 mg STK-MED ONCE 02/08/21 09:37 02/08/21 09:37 DC Piperacillin Sod/ Tazobactam Sod 2.25 gm/Sodium Chloride 50 ml @ 100 mls/hr Q8HRS 02/02/21 09:00 02/05/21 15:15 DC 02/05/21 05:53 100 MLS/HR Piperacillin Sod/ Tazobactam Sod 4.5 gm/Sodium Chloride 100 ml @ 200 mls/hr 1X ONCE 02/01/21 17:45 02/01/21 18:14 DC 02/01/21 18:10 200 MLS/HR Polyethylene Glycol (miraLAX PACKET) 17 gm PRN DAILY PRN 02/03/21 13:30 Pramipexole Dihydrochloride (miraPEX) 0.25 mg DAILY 02/04/21 09:00 UNV Prochlorperazine Edisylate (Compazine) 5 mg PACU PRN PRN 02/08/21 06:00 02/09/21 05:59 DC Propofol (Diprivan) 200 mg STK-MED ONCE 02/08/21 09:37 02/08/21 09:37 DC Protamine Sulfate (Protamine) 50 mg 1X ONCE 02/07/21 11:15 02/07/21 11:17 DC 02/07/21 11:12 50 MG Ringer's Solution 1,000 ml @ 30 mls/hr Q24H 02/08/21 06:00 02/08/21 17:59 DC Senna/Docusate Sodium (Senna Plus) 1 tab DAILY 02/03/21 14:00 02/10/21 10:20 1 TAB Sennosides (Senna) 8.6 mg PRN BID PRN 02/03/21 13:30 02/03/21 15:58 8.6 MG Sevoflurane (Ultane) 30 ml STK-MED ONCE 02/02/21 15:09 02/02/21 15:10 DC Sodium Bicarbonate (Sodium Bicarbonate) 650 mg TID 02/03/21 14:00 02/10/21 10:19 650 MG Sodium Chloride 500 ml @ 500 mls/hr 1X ONCE 02/10/21 12:45 02/10/21 13:44 Vancomycin HCl (Vanco Per Pharmacy) 1 each PRN DAILY PRN 02/02/21 08:30 02/07/21 15:49 1 EACH Vancomycin HCl (Vancomycin Random Level) 1 each 1X ONCE 02/03/21 05:00 02/03/21 05:01 DC Vancomycin HCl 500 mg/Sodium Chloride 100 ml @ 100 mls/hr QTUTHSA 02/06/21 16:00 02/08/21 17:00 100 MLS/HR Vancomycin HCl 1 gm/Sodium Chloride 250 ml @ 250 mls/hr 1X ONCE 02/03/21 16:00 02/03/21 16:59 DC 02/03/21 16:55 250 MLS/HR Vasopressin (Vasostrict) 20 unit STK-MED ONCE 02/08/21 11:24 02/08/21 11:24 DC Lab Laboratory Tests Test 02/09/21 18:14 02/10/21 09:20 Glucose (Fingerstick) 339 mg/dL (70-99) Sodium Level 133 mmol/L (136-145) Potassium Level 5.0 mmol/L (3.5-5.1) Chloride Level 98 mmol/L (98-107) Carbon Dioxide Level 21 mmol/L (21-32) Anion Gap 14 (6-14) Blood Urea Nitrogen 40 mg/dL (7-20) Creatinine 6.4 mg/dL (0.6-1.0) Estimated GFR (Cockcroft-Gault) 6.5 Glucose Level 275 mg/dL (70-99) Calcium Level 7.6 mg/dL (8.5-10.1) Results All relevant outside records, renal labs, imaging studies, telemetry/EKG's were reviewed. Justicifation of Admission Dx: Justifications for Admission: Justification of Admission Dx: Yes DAVID BOWMAN MD Feb 10, 2021 13:49
[2021-02-10] MEDS ORDERED: PHENYLEPHRINE INJ 50 MG in IV NORMAL SALINE 250ML 250 ML IV PRN (14:30)
[2021-02-10] MEDS ORDERED: ALBUMIN HUMAN 25% 100 ML IV PRN (15:00)
[2021-02-10] MEDS ORDERED: CEFEPIME HCL IV Push 1 GM VIAL. IVP SCH (16:00)
--- NOTE | 2021-02-10 16:23 | PDOC ---
Provider Note Date of Service: DATE: 02/10/21 TIME: 16:21 Provider Note Provider Note POD 2 Right BKA. Currently undergoing dialysis in ICU without complication. Reports pain well controlled PE: SKIN: BKA incision c/d/i with alexander in place there is minimal ecchymosis of the skin on the cephalad edge in spots. GEN: alert, awake and appropriate A: Recovering well s/p R BKA. incision healing well. P: Follow up with Dr. Parr in 4 weeks. Apply gauze dressing daily and continue BKA stump protection. Please call with any questions or concerns. Justicifation of Admission Dx: Justifications for Admission: Justification of Admission Dx: Yes COCO CASON MD Feb 10, 2021 16:23
--- NOTE | 2021-02-10 16:50 | PDOC2 ---
CARDIOLOGY CONSULT NOTE DATE OF SERVICE: DATE: 02/10/21 TIME: 16:36 CHIEF COMPLAINT: Arrhythmia on monitoring HPI: 65-year-old woman who is been admitted to the hospital for several days for peripheral vascular disease has been recovering in the ICU. She has had chronic hypotension and has required vasopressor therapy. Due to right lower extremity green green she underwent a below-knee amputation. Cardiology has been asked to evaluate her today due to frequent PVCs. The patient currently denies any chest pain. No syncope. She denies any current palpitation PMHX: 1. Coronary artery disease status post three-vessel bypass. Prior cardiac catheterization in 2019 revealed patency of the MADRID to the LAD and SVG to LPL with occlusion of the saphenous vein graft to the obtuse marginal and the left dominant system 2. End-stage renal disease on hemodialysis 3. Severe peripheral arterial disease with recent below-knee amputation 4. Hypertension 5. Dyslipidemia 6. Hypothyroidism 7. Type 2 diabetes SOCHX: No current alcohol, tobacco or illicit drug use. FAMHX: Noncontributory CURRENT MEDS: Levophed Midodrine Aspirin Plavix Atorvastatin Lisinopril and amlodipine have been held due to hypotension ALLERGIES: Allergies Coded Allergies Type Severity Reaction Last Updated Verified pregabalin Allergy Intermediate 02/01/21 Yes ROS: Negative for 10 out of 14 systems reviewed unless otherwise mentioned above in HPI PHYSICAL EXAM: Vital Signs/I&O: Vital Signs Date Time Temp Pulse Resp B/P (MAP) Pulse Ox O2 Delivery O2 Flow Rate FiO2 02/10/21 14:00 64 15 81/41 (54) 97 Room Air 02/10/21 12:00 98.3 98.3 02/10/21 10:48 2.0 I & O 02/09/21 02/09/21 02/10/21 15:00 23:00 07:00 Intake Total 960 ml 780 ml Output Total 0 ml 0 ml Balance 960 ml 0 ml 780 ml Physical Exam: The patient appeared well nourished and normally developed. Head exam is unremarkable. No scleral icterus or corneal arcus noted. Neck is without jugular venous distension, thyromegaly, or carotid bruits. Carotid upstrokes are brisk bilaterally. Lungs are clear to auscultation and percussion. Cardiac exam reveals the PMI to be normally sized and situated. Rhythm is regular. First and second heart sounds normal. No murmurs, rubs or gallops. Abdominal exam reveals normal bowel sounds, no masses, no organomegaly and no aortic enlargement. Extremities are nonedematous diminished pedal pulses on the left side and right below-knee amputation Msk: No traumua Neuro: No focal deficits DIAGNOSTIC TESTING: Echocardiogram from August 2020 reveals ejection fraction of 45% at [facility] Cardiac catheterization in 2020 is as noted above Recent lower extremity angiogram reviewed Lab Laboratory studies reviewed. Chronic anemia noted ASSESSMENT: 1. Frequent PVCs and PACs in the setting of recent gangrene and below-knee amputation 2. Coronary artery disease status post three-vessel bypass 3. End-stage renal disease 4. Severe peripheral arterial disease status post amputation as noted 5. Multiple other cardiovascular comorbidities as noted above 6. Hypotension requiring vasopressor therapy PLAN: 1. At this present time she has multiple etiologies for her arrhythmia. She just underwent dialysis therefore would recommend repeat labs tomorrow to determine if there is any electrolyte disturbances that could have led to her PVCs 2. She does have ischemic cardiomyopathy but it appears to be compensated at this time so no further cardiac testing would be indicated for now 3. I suspect that her blood pressure is actually within the normal range but due to her severe PAD the blood pressure cuff is likely inaccurate, therefore we will plan to Doppler her left lower extremity dorsalis pedis pulse and based on this wean off the Levophed therapy and this might ultimately help decrease the incidence of PVCs. Supportive care for now. We will follow along closely. ANGEL JOHNSON MD Feb 10, 2021 16:50
[2021-02-10] MEDS: oxyCODONE IR 5 MG TABLET PO PRN (17:36)
[2021-02-10] MEDS: VANCOMYCIN 500 MG in IV NORMAL SALINE 100ML 100 ML IV SCH (18:42)
[2021-02-10] MEDS: ATORVASTATIN CALCIUM 40 MG TABLET. PO SCH (21:10)
[2021-02-10] MEDS: LATANOPROST 0.005% OPHTH SOLUTION 2.5ML BOTTLE. OU SCH (21:10)
--- NOTE | 2021-02-10 21:32 | NUR ---
Manual cuff with doppler used to determine SBP due to unreliable automatic cuff pressures per Dr. Rodríguez.
[2021-02-11] VITALS: BP_SYST 125
[2021-02-11 04:00] VITALS: BP_SYST 145
[2021-02-11] MEDS: oxyCODONE/APAP 5/325 1 TAB TABLET PO PRN ×2 (04:36→23:55)
[2021-02-11] MEDS: LEVOTHYROXINE 100 MCG TABLET PO SCH (06:07)
[2021-02-11 07:00] VITALS: BP_SYST 145
[2021-02-11] MEDS: ONDANSETRON ODT 4 MG TAB.RAPDIS. PO PRN (07:49)
[2021-02-11] MEDS: INSULIN LISPRO 300 UNITS/3 ML VIAL. SQ SCH ×3 (08:00→17:00)
[2021-02-11] MEDS: LISINOPRIL 20 MG TABLET PO SCH (09:00)
[2021-02-11 10:30] LABS: BASO % 1 % (0-3); EOS # 0.2 x10^3/uL (0.0-0.7); EOS % 2 % (0-3); HEMATOCRIT 33.3 % (36.0-47.0); HEMOGLOBIN 10.2 g/dL (12.0-15.5); LYMPH # 0.6 x10^3/uL (1.0-4.8); LYMPH % 6 % (24-48); MEAN CORPUSCULAR HEMOGLOBIN 31 pg (25-35); MEAN CORPUSCULAR HGB CONC 31 g/dL (31-37); MEAN CORPUSCULAR VOLUME 101 fL (79-100); MONO # 0.6 x10^3/uL (0.0-1.1); MONO % 6 % (0-9); NEUT # 8.9 x10^3/uL (1.8-7.7); NEUT % 86 % (31-73); PLATELET COUNT 183 x10^3/uL (140-400); RED CELL DISTRIBUTION WIDTH 18.1 % (11.5-14.5); WHITE BLOOD COUNT 10.3 x10^3/uL (4.0-11.0)
[2021-02-11] MEDS: PANTOPRAZOLE 40 MG TABLET.DR. PO SCH (10:48)
[2021-02-11] MEDS: FERROUS SULFATE 325 MG TABLET. PO SCH (10:49)
[2021-02-11] MEDS: MIDODRINE 2.5 MG TABLET PO SCH ×3 (10:50→17:53)
[2021-02-11] MEDS: FUROSEMIDE 80 MG TABLET. PO SCH (10:53)
[2021-02-11] MEDS: FLUDROCORTISONE 0.1 MG TABLET PO SCH (10:53)
[2021-02-11] MEDS: LACTOBACILLUS RHAMNOSUS GG 1 CAPSULE. PO SCH ×2 (10:53→20:49)
[2021-02-11] MEDS: ANASTROZOLE 1 MG TABLET PO SCH (10:53)
[2021-02-11] MEDS: ASPIRIN ENTERIC COATED 81 MG TABLET.DR. PO SCH (10:53)
[2021-02-11] MEDS: PRAMIPEXOLE 0.25 MG TABLET. PO SCH (10:54)
[2021-02-11] MEDS: CLOPIDOGREL BISULFATE 75 MG TABLET PO SCH (10:59)
[2021-02-11] MEDS: SENNOSIDES/DOCUSATE 8.6/50MG TABLET. PO SCH (11:00)
[2021-02-11] MEDS: SODIUM BICARBONATE 650 MG TABLET. PO SCH ×3 (11:00→20:49)
[2021-02-11] MEDS: MULTIVITAMIN with MINERAL TABLET. PO SCH (11:01)
[2021-02-11] MEDS: CALCIUM CARBONATE 500 MG TABLET PO SCH ×2 (11:01→17:53)
[2021-02-11] MEDS: ALLOPURINOL 100 MG TABLET. PO SCH (11:01)
[2021-02-11] MEDS: oxyCODONE IR 5 MG TABLET PO PRN ×2 (11:02→20:50)
--- NOTE | 2021-02-11 11:28 | PDOC ---
CARDIOLOGY PROGRESS NOTE SUBJECTIVE: No significant overnight events. The patient has been able to be weaned off of Levophed therapy. Doppler evaluation of the left lower extremity has been used for blood pressure management The patient denies any current chest pain or dyspnea. She continues to report unfortunately bilateral cool upper extremities and swelling. No dialysis planned for today. OBJECTIVE: Vital Signs/I&O: Vital Signs Date Time Temp Pulse Resp B/P (MAP) Pulse Ox O2 Delivery O2 Flow Rate FiO2 02/11/21 11:02 100 Room Air 2.0 02/11/21 10:50 73 145/44 02/11/21 09:00 15 02/10/21 20:00 98.2 98.2 I & O 02/10/21 02/10/21 02/11/21 15:00 23:00 07:00 Intake Total 420 ml 120 ml 350 ml Output Total 0 ml 0 ml 0 ml Balance 420 ml 120 ml 350 ml Objective: Examination she is a frail woman in mild distress from various ailments Head and neck is unremarkable Cardiac regular rate and rhythm with occasional PVCs She has nonpalpable pulses in her extremities but the left lower extremity anterior tibial pulses dopplerable. She has dopplerable right radial and ulnar pulses. Right upper extremity is swollen and weeping. Left upper extremity is also swollen. Left lower extremity has no edema Neurologically no focal deficits Abdomen is soft tender to student Lungs are clear to auscultation bilaterally CURRENT MEDICATIONS: Aspirin, Plavix, atorvastatin Lisinopril held Levophed turned off DIAGNOSTIC TESTING: Telemetry reviewed no significant arrhythmias Labs reviewed ASSESSMENT: 1. Frequent PVCs and PACs in the setting of recent gangrene and below-knee amputation 2. Coronary artery disease status post three-vessel bypass 3. End-stage renal disease 4. Severe peripheral arterial disease status post amputation as noted 5. Multiple other cardiovascular comorbidities as noted above 6. Hypotension requiring vasopressor therapy - improved PLAN: 1. Continue present meds. 2. Warming pads to the upper extremities with elevation to help improve venous congestion. 3. Obtain echocardiogram. 4. Continue manual bp cuff with use of doppler. Supportive care. Justicifation of Admission Dx: Justifications for Admission: Justification of Admission Dx: Yes ANGEL JOHNSON MD Feb 11, 2021 11:28
[2021-02-11 12:00] VITALS: BP_SYST 130
--- NOTE | 2021-02-11 12:12 | PDOC ---
DATE OF SERVICE DATE: 02/11/21 TIME: 12:12 SUBJECTIVE ROS Stable, BP improved OBJECTIVE Vital Signs Vital Signs Date Time Temp Pulse Resp B/P (MAP) Pulse Ox O2 Delivery O2 Flow Rate FiO2 02/11/21 11:32 100 Room Air 2.0 02/11/21 10:50 73 145/44 02/11/21 09:00 15 02/10/21 20:00 98.2 98.2 I & 0 Intake and Output 02/11/21 07:00 Intake Total 890 ml Output Total 0 ml Balance 890 ml Intake Oral 890 ml Output Urine Total 0 ml # Bowel Movements 2 PHYSICAL EXAM Physical Exam GENERAL: no acute distress. HEENT: Normocephalic, atraumatic and anicteric. Oral mucosa moist. NECK: Supple. LUNGS: Clear bilaterally. Non labored HEART: S1, S2. No murmurs. ABDOMEN: Soft, nontender, and nondistended. EXTRM: Right foot wound (per ID and vascular) NEURO: Alert and oriented x 3, grossly nonfocal. DIAGNOSIS/ASSESSMENT Assessment & Plan ESRD on HD TTS @ [facility] ,no indication for dialysis today Access AVF ; she recently started PD as well but had to switch to HD 2/2 Fluid retention .Avoid PICC /Mid line Anemia - ANNIA Gangrene right 5th toe/lateral foot and right heel - S/P Ray amputation of the right fifth toe including the metatarsal head. Rt BKA 02/08 -. Post procedure hypotensive - in ICU since HTN - Hypotensive since BKA requiring pressor support DM per primary COMMENT/RELEVANT DATA Meds Current Medications Medications (Trade) Dose Ordered Sig/Michelle Start Time Stop Time Status Last Admin Dose Admin Acetaminophen (Tylenol) 650 mg PRN Q6HRS PRN 02/03/21 13:30 Albumin Human 100 ml @ 100 mls/hr 1X PRN PRN 02/10/21 15:00 02/10/21 15:25 100 MLS/HR Allopurinol (Zyloprim) 100 mg DAILY 02/03/21 14:00 02/11/21 11:01 100 MG Amlodipine Besylate (Norvasc) 5 mg DAILY 02/03/21 14:00 02/05/21 09:46 5 MG Anastrozole (Arimidex) 1 mg DAILY 02/03/21 14:00 02/11/21 10:53 1 MG Aspirin (Ecotrin) 81 mg DAILY 02/04/21 09:00 02/11/21 10:53 81 MG Atorvastatin Calcium (Lipitor) 80 mg HS 02/03/21 21:00 02/10/21 21:10 80 MG Calcium Carbonate/ Glycine (Oscal) 750 mg BIDWMEALS 02/03/21 17:00 02/11/21 11:01 750 MG Cefazolin Sodium 1 gm/Sodium Chloride 500 ml @ 500 mls/hr 1X ONCE 02/08/21 06:00 02/08/21 06:59 DC 02/08/21 12:35 Cefepime HCl (Maxipime) 3 gm QSA 02/10/21 16:00 02/10/21 18:38 3 GM Clopidogrel Bisulfate (Plavix) 75 mg DAILY 02/04/21 09:00 02/11/21 10:59 75 MG Desflurane (Suprane) 30 ml STK-MED ONCE 02/02/21 15:09 02/02/21 15:10 DC Dexamethasone Sodium Phosphate (Decadron) 4 mg STK-MED ONCE 02/02/21 15:09 02/02/21 15:09 DC Dextrose (Dextrose 50%-Water Syringe) 12.5 gm PRN Q15MIN PRN 02/09/21 18:45 Ephedrine Sulfate (ePHEDrine PF IN SALINE SYRINGE) 50 mg STK-MED ONCE 02/02/21 15:00 02/02/21 15:00 DC Epoetin Galileo-epbx (RETACRIT for ESRD PTS) 10,000 unit MoWeFr@2100 02/02/21 21:00 02/09/21 20:29 10,000 UNIT Fentanyl Citrate (Fentanyl 2ml Vial) 25 mcg PRN Q1HR PRN 02/08/21 13:45 02/08/21 17:50 25 MCG Ferrous Sulfate (Feosol) 325 mg DAILYWBKFT 02/03/21 14:00 02/11/21 10:49 325 MG Fludrocortisone Acetate (Florinef) 0.1 mg DAILY 02/07/21 13:30 02/11/21 10:53 0.1 MG Furosemide (Lasix) 80 mg DAILY 02/03/21 14:00 02/11/21 10:53 80 MG Heparin Sodium (Porcine) (Heparin Sodium) 8,000 unit 1X ONCE 02/07/21 10:00 02/07/21 10:01 DC 02/07/21 09:50 10,000 UNIT Heparin Sodium/ Sodium Chloride (HEPARIN for ARTERIAL LINE FLUSH) 1,000 unit 1X ONCE 02/07/21 08:30 02/07/21 08:31 DC 02/07/21 08:30 1,000 UNIT Hydromorphone HCl (Dilaudid) 0.5 mg PRN Q10MIN PRN 02/08/21 06:00 02/09/21 05:59 DC Info (CONTRAST GIVEN -- Rx MONITORING) 1 each PRN DAILY PRN 02/07/21 08:45 02/09/21 08:44 DC Info (PHARMACY MONITORING -- do not chart) 1 each PRN DAILY PRN 02/10/21 06:45 Insulin Glargine (Lantus Syringe) 10 unit QHS 02/03/21 21:00 02/06/21 07:54 DC 02/04/21 22:36 10 UNIT Insulin Human Lispro (HumaLOG) 0-7 UNITS TIDWMEALS 02/10/21 08:00 02/10/21 18:41 3 UNITS Insulin Human Regular (HumuLIN R VIAL) 100 unit TIDAC 02/03/21 16:30 02/03/21 13:32 DC Iodixanol (Visipaque 320) 100 ml 1X ONCE 02/07/21 08:30 02/07/21 08:31 DC 02/07/21 11:16 60 ML Lactobacillus Rhamnosus (Culturelle) 1 cap BID 02/05/21 12:00 02/11/21 10:53 1 CAP Latanoprost (Xalatan) 1 drop QHS 02/03/21 21:00 02/10/21 21:10 1 DROP Levothyroxine Sodium (Synthroid) 200 mcg DAILY06 02/03/21 14:00 02/11/21 06:07 200 MCG Lidocaine HCl (Lidocaine 1% 20ml Vial) 20 ml 1X ONCE 02/07/21 08:30 02/07/21 08:31 DC 02/07/21 09:25 16 ML Lidocaine HCl (Lidocaine Pf 2% Vial) 5 ml STK-MED ONCE 02/08/21 09:37 02/08/21 09:37 DC Lidocaine/ Prilocaine (Emla) 1 pallavi 1X PRN ONCE 02/10/21 09:15 02/10/21 09:33 DC 02/10/21 14:11 1 PALLAVI Lisinopril (Prinivil) 20 mg DAILY 02/03/21 14:00 02/05/21 09:45 20 MG Methocarbamol (Robaxin) 500 mg PRN Q8HRS PRN 02/03/21 13:30 02/06/21 07:54 DC Midazolam HCl (Versed) 2 mg 1X ONCE 02/07/21 08:30 02/07/21 08:31 DC 02/07/21 09:44 2 MG Midodrine (Proamatine) 5 mg PRN DAILY PRN 02/06/21 08:15 02/09/21 06:45 5 MG Morphine Sulfate (Morphine Sulfate) 1 mg PRN Q10MIN PRN 02/08/21 06:00 02/09/21 05:59 DC Multivitamins (Thera M Plus) 1 tab DAILY 02/07/21 14:00 02/11/21 11:01 1 TAB Nitroglycerin (Nitroglycerin) 200 mcg STK-MED ONCE 02/07/21 08:44 02/07/21 08:44 DC Non-Formulary Medication (Amlodipine Besylate/ Benazepril (Amlodipine-Benazepril 5-20 Mg)) 1 cap DAILY 02/04/21 09:00 UNV Non-Formulary Medication (Omeprazole Magnesium (Prilosec Otc)) 1 tab DAILY 02/04/21 09:00 UNV Non-Formulary Medication (Pregabalin (Lyrica)) 150 mg Q3DAYS 02/06/21 09:00 UNV Norepinephrine Bitartrate 8 mg/ Dextrose 258 ml @ 20.472 mls/ hr CONT PRN 02/09/21 03:15 02/10/21 02:46 20.472 MLS/HR Ondansetron HCl (Zofran Odt) 4 mg Q6HRS PRN 02/03/21 13:45 02/11/21 07:49 4 MG Ondansetron HCl (Zofran) 4 mg STK-MED ONCE 02/08/21 09:37 02/08/21 09:37 DC Oxycodone HCl (Roxicodone) 5 mg PRN Q6HRS PRN 02/03/21 14:15 UNV Oxycodone/ Acetaminophen (Percocet 5/325) 2 tab PRN Q4HRS PRN 02/07/21 11:45 Pantoprazole Sodium (Protonix) 40 mg DAILYAC 02/03/21 14:00 02/11/21 10:48 40 MG Phenylephrine HCl (Elvis-Synephrine Inj) 10 mg STK-MED ONCE 02/08/21 10:14 02/08/21 10:14 DC Phenylephrine HCl (PHENYLEPHRINE in 0.9% NACL PF) 1 mg STK-MED ONCE 02/08/21 09:37 02/08/21 09:37 DC Phenylephrine HCl 50 mg/Sodium Chloride 255 ml @ 16.187 mls/ hr CONT PRN 02/10/21 14:30 Piperacillin Sod/ Tazobactam Sod 2.25 gm/Sodium Chloride 50 ml @ 100 mls/hr Q8HRS 02/02/21 09:00 02/05/21 15:15 DC 02/05/21 05:53 100 MLS/HR Piperacillin Sod/ Tazobactam Sod 4.5 gm/Sodium Chloride 100 ml @ 200 mls/hr 1X ONCE 02/01/21 17:45 02/01/21 18:14 DC 02/01/21 18:10 200 MLS/HR Polyethylene Glycol (miraLAX PACKET) 17 gm PRN DAILY PRN 02/03/21 13:30 02/11/21 02:43 17 GM Pramipexole Dihydrochloride (miraPEX) 0.25 mg DAILY 02/04/21 09:00 UNV Prochlorperazine Edisylate (Compazine) 5 mg PACU PRN PRN 02/08/21 06:00 02/09/21 05:59 DC Propofol (Diprivan) 200 mg STK-MED ONCE 02/08/21 09:37 02/08/21 09:37 DC Protamine Sulfate (Protamine) 50 mg 1X ONCE 02/07/21 11:15 02/07/21 11:17 DC 02/07/21 11:12 50 MG Ringer's Solution 1,000 ml @ 30 mls/hr Q24H 02/08/21 06:00 02/08/21 17:59 DC Senna/Docusate Sodium (Senna Plus) 1 tab DAILY 02/03/21 14:00 02/11/21 11:00 1 TAB Sennosides (Senna) 8.6 mg PRN BID PRN 02/03/21 13:30 02/03/21 15:58 8.6 MG Sevoflurane (Ultane) 30 ml STK-MED ONCE 02/02/21 15:09 02/02/21 15:10 DC Sodium Bicarbonate (Sodium Bicarbonate) 650 mg TID 02/03/21 14:00 02/11/21 11:00 650 MG Sodium Chloride 500 ml @ 500 mls/hr 1X ONCE 02/10/21 12:45 02/10/21 13:44 DC Vancomycin HCl (Vanco Per Pharmacy) 1 each PRN DAILY PRN 02/02/21 08:30 02/07/21 15:49 1 EACH Vancomycin HCl (Vancomycin Random Level) 1 each 1X ONCE 02/03/21 05:00 02/03/21 05:01 DC Vancomycin HCl 500 mg/Sodium Chloride 100 ml @ 100 mls/hr QTUTHSA 02/06/21 16:00 02/10/21 18:42 100 MLS/HR Vancomycin HCl 1 gm/Sodium Chloride 250 ml @ 250 mls/hr 1X ONCE 02/03/21 16:00 02/03/21 16:59 DC 02/03/21 16:55 250 MLS/HR Vasopressin (Vasostrict) 20 unit STK-MED ONCE 02/08/21 11:24 02/08/21 11:24 DC Lab Laboratory Tests Test 02/10/21 18:36 02/11/21 10:00 Glucose (Fingerstick) 197 mg/dL (70-99) White Blood Count 10.3 x10^3/uL (4.0-11.0) Red Blood Count 3.30 x10^6/uL (3.50-5.40) Hemoglobin 10.2 g/dL (12.0-15.5) Hematocrit 33.3 % (36.0-47.0) Mean Corpuscular Volume 101 fL (79-100) Mean Corpuscular Hemoglobin 31 pg (25-35) Mean Corpuscular Hemoglobin Concent 31 g/dL (31-37) Red Cell Distribution Width 18.1 % (11.5-14.5) Platelet Count 183 x10^3/uL (140-400) Neutrophils (%) (Auto) 86 % (31-73) Lymphocytes (%) (Auto) 6 % (24-48) Monocytes (%) (Auto) 6 % (0-9) Eosinophils (%) (Auto) 2 % (0-3) Basophils (%) (Auto) 1 % (0-3) Neutrophils # (Auto) 8.9 x10^3/uL (1.8-7.7) Lymphocytes # (Auto) 0.6 x10^3/uL (1.0-4.8) Monocytes # (Auto) 0.6 x10^3/uL (0.0-1.1) Eosinophils # (Auto) 0.2 x10^3/uL (0.0-0.7) Basophils # (Auto) 0.0 x10^3/uL (0.0-0.2) Results All relevant outside records, renal labs, imaging studies, telemetry/EKG's were reviewed. Justicifation of Admission Dx: Justifications for Admission: Justification of Admission Dx: Yes DAVID BOWMAN MD Feb 11, 2021 12:12
--- NOTE | 2021-02-11 13:58 | CARD ---
MR#: [id number] Date of Study: 02/11/2021 Ordering Physician: ANGEL JOHNSON, Referring Physician: ANGEL JOHNSON, Tech: Steve Santana [facility] APPROVED REPORT EXAM: LIMITED Two-dimensional and M-mode echocardiogram with Doppler and color Doppler. Other Information Quality : AverageHR: 65bpm Rhythm : NSR INDICATION Hypotension RISK FACTORS Hypertension Hyperlipidemia Diabetes End stage renal disease, PVD 2D DIMENSIONS IVSd0.7 (0.7-1.1cm)LVDd5.4 (3.9-5.9cm) LVOT Diameter1.7 (1.8-2.4cm)PWd0.8 (0.7-1.1cm) LVDs4.7 (2.5-4.0cm)FS (%) 12.8 % SV37.9 mlLVEF(%)27.2 (>50%) Aortic Valve AoV Peak Kaushal.268.2cm/sAoV VTI64.2cm AO Peak GR.28.8mmHgLVOT Peak Kaushal.87.8cm/s AO Mean GR.15mmHgAVA (VMAX)0.75cm2 TAYLOR (VTI)0.75cm2 Tricuspid Valve TR P. [id number] Peak Gr.45mmHg LEFT VENTRICLE The left ventricle is normal size. There is normal left ventricular wall thickness. The ejection frac tion is severely impaired. The Ejection Fraction is 25% There is severe global hypokinesis. No left v entricle thrombus noted on this study. There is no ventricular septal defect visualized. There is no left ventricular aneurysm. There is no mass noted in the left ventricle. RIGHT VENTRICLE The right ventricle is normal size. The right ventricle is moderately hypertrophied. The right ventri cular systolic function is normal. ATRIA The left atrium is moderately dilated. The right atrium is mildly dilated. The interatrial septum is intact with no evidence for an atrial septal defect or patent foramen ovale as noted on 2-D or Dopple r imaging. AORTIC VALVE The aortic valve is calcified and displays decreased opening. Doppler and Color Flow revealed no sign ificant aortic regurgitation. There is moderate to severe valvular aortic stenosis. Calculated aortic valve area is 0.8 cm2 with maximum pressure gradient of 29 mmHg and mean pressure gradient of 15 mmH g. There is no aortic valvular vegetation. MITRAL VALVE The mitral valve is thickened but opens well. There is no evidence of mitral valve prolapse. There is no mitral valve stenosis. Doppler and Color-flow revealed trace to mild mitral regurgitation. TRICUSPID VALVE The tricuspid valve is normal in structure and function. Doppler and Color Flow revealed mild tricusp id regurgitation. The pulmonary artery systolic pressure is estimated at 50-60 mmHg. There is no tric uspid valve prolapse or vegetation. There is no tricuspid valve stenosis. PULMONIC VALVE Doppler and Color Flow revealed no pulmonic valvular regurgitation. There is no pulmonic valvular elizabeth nosis. GREAT VESSELS The aortic root is normal in size. The ascending aorta is normal in size. The IVC is dilated with vipul nted inspiratory response. PERICARDIAL EFFUSION There is no pleural effusion. There is no evidence of significant pericardial effusion. Critical Notification Critical Value: No <Conclusion> The ejection fraction is severely impaired. The Ejection Fraction is 25% There is severe global hypokinesis. There is moderate to severe valvular aortic stenosis. Calculated aortic valve area is 0.8 cm2 with ma ximum pressure gradient of 29 mmHg and mean pressure gradient of 15 mmHg. Doppler and Color Flow revealed mild tricuspid regurgitation. The pulmonary artery systolic pressure is estimated at 50-60 mmHg. The IVC is dilated with blunted inspiratory response. Signed by : Angel Johnson, Electronically Approved : 02/11/2021 13:58:05
[2021-02-11 16:00] VITALS: BP_SYST 120
--- NOTE | 2021-02-11 17:11 | PDOC ---
[employer] PROGRESS NOTE Date of Service DOS: DATE: 02/11/21 TIME: 17:10 Chief Complaint Chief Complaint s/p amputation, now has hypotension, treating mild shock, as sepsis, fluid balance OK on levaphed, in ICU Right fifth toe gangrene with right lateral and right heel wounds - s/p Ray amputation of the right fifth toe including the metatarsal head I and D of the right heel February 02, 2021 Peripheral vascular disease, status post angioplasty at on 01/16/2021. End-stage renal disease, on hemodialysis. Diabetes with neuropathy. Protein-calorie malnutrition. Abnormal LFTs. Anemia. History of Present Illness History of Present Illness 02/11, better BP off elizabeth cnot support, HD yesteday went well fluid balance OK, looks weak left arm swollen a little today, dependent, she lays on that side, will try to turn to other side 02/10, BP still low, needs HD today, will give 500 mls bolus weaknes, lethargy, right arm swelling is much better 10.15, prior hypotnesion days agoo too, in ICU surg went well, limb was not able to be salvaged, BKA done pt in good spiritis, eating well Ms Ruelas is a 65-year-old female with history of diabetes; hypertension; coronary artery disease; CABG; end-stage renal disease, on dialysis; peripheral vascular disease, who underwent angiogram and angioplasty of the right anterior tibial artery at on 01/16/2021 who presented to the ER with complaints of wounds of the right lower extremity for a couple of weeks. She denies any history of injury. Denies fevers, chills, nausea, vomiting, diarrhea, headache, sore throat, difficulty swallowing, shortness of breath, or cough. 02/07: hypotension after angio, will bolus 1 liter and give fludro, Continue IV abx, ID following, on zosyn. Vasc plans limb salvage surg Overnight no events. She has been noticing some pill esophagitis having to suction to clear her own secretions. Right leg pain has improved. Afebrile. Vitals/I&O Vitals/I&O: Vital Signs Date Time Temp Pulse Resp B/P (MAP) Pulse Ox O2 Delivery O2 Flow Rate FiO2 02/11/21 12:00 58 10 130/ 100 Room Air 02/11/21 11:32 2.0 02/10/21 20:00 98.2 98.2 I & O 02/10/21 02/10/21 02/11/21 15:00 23:00 07:00 Intake Total 420 ml 120 ml 350 ml Output Total 0 ml 0 ml 0 ml Balance 420 ml 120 ml 350 ml Physical Exam Physical Exam: GENERAL: Alert and oriented x 3 female, lying in bed comfortably, in no acute distress. HEENT: Normocephalic, atraumatic and anicteric. No thrush. Oral mucosa moist. NECK: Supple. LUNGS: Clear bilaterally. No wheezing. HEART: S1, S2. No murmurs. ABDOMEN: Soft, nontender, and nondistended. EXTREMITIES: Right BKA BACK: Reveals normal curvature. No CVA tenderness. NEUROLOGIC: Alert and oriented x 3, grossly nonfocal. PSYCHIATRIC: Calm and cooperative. General: Alert, Oriented X3, Cooperative Heart: Regular rate, Normal S1, Normal S2, No murmurs, Gallops Lungs: Clear Abdomen: Normal bowel sounds, Soft, No tenderness, No hepatosplenomegaly, No masses Extremities: Other Labs Labs: Laboratory Tests Test 02/10/21 18:36 02/11/21 10:00 02/11/21 12:43 Glucose (Fingerstick) 197 mg/dL (70-99) 168 mg/dL (70-99) White Blood Count 10.3 x10^3/uL (4.0-11.0) Red Blood Count 3.30 x10^6/uL (3.50-5.40) Hemoglobin 10.2 g/dL (12.0-15.5) Hematocrit 33.3 % (36.0-47.0) Mean Corpuscular Volume 101 fL (79-100) Mean Corpuscular Hemoglobin 31 pg (25-35) Mean Corpuscular Hemoglobin Concent 31 g/dL (31-37) Red Cell Distribution Width 18.1 % (11.5-14.5) Platelet Count 183 x10^3/uL (140-400) Neutrophils (%) (Auto) 86 % (31-73) Lymphocytes (%) (Auto) 6 % (24-48) Monocytes (%) (Auto) 6 % (0-9) Eosinophils (%) (Auto) 2 % (0-3) Basophils (%) (Auto) 1 % (0-3) Neutrophils # (Auto) 8.9 x10^3/uL (1.8-7.7) Lymphocytes # (Auto) 0.6 x10^3/uL (1.0-4.8) Monocytes # (Auto) 0.6 x10^3/uL (0.0-1.1) Eosinophils # (Auto) 0.2 x10^3/uL (0.0-0.7) Basophils # (Auto) 0.0 x10^3/uL (0.0-0.2) Assessment and Plan Assessmemt and Plan Problems Medical Problems: (1) End stage kidney disease Status: Acute (2) Leukocytosis Status: Acute (3) Right foot infection Status: Acute Comment Review of Relevant I have reviewed the following items mimi (where applicable) has been applied. Justifications for Admission Other Justification PRETTY TRACY MD Feb 11, 2021 17:11
[2021-02-11 20:00] VITALS: BP_SYST 100
[2021-02-11] MEDS: LATANOPROST 0.005% OPHTH SOLUTION 2.5ML BOTTLE. OU SCH (20:49)
[2021-02-11] MEDS: ATORVASTATIN CALCIUM 40 MG TABLET. PO SCH (20:49)
[2021-02-12] VITALS (7 sets, daily range): BP systolic 99–138; BP diastolic 48–60
[2021-02-12] MEDS: LEVOTHYROXINE 100 MCG TABLET PO SCH (05:53)
[2021-02-12] MEDS: MIDODRINE 2.5 MG TABLET PO SCH ×3 (08:00→17:30)
[2021-02-12] MEDS: INSULIN LISPRO 300 UNITS/3 ML VIAL. SQ SCH ×3 (08:00→17:00)
[2021-02-12] MEDS: FERROUS SULFATE 325 MG TABLET. PO SCH (08:21)
[2021-02-12] MEDS: PRAMIPEXOLE 0.25 MG TABLET. PO SCH (08:21)
[2021-02-12] MEDS: ANASTROZOLE 1 MG TABLET PO SCH (08:22)
[2021-02-12] MEDS: LISINOPRIL 20 MG TABLET PO SCH (08:23)
[2021-02-12] MEDS: FLUDROCORTISONE 0.1 MG TABLET PO SCH (08:24)
[2021-02-12] MEDS: FUROSEMIDE 80 MG TABLET. PO SCH (08:25)
[2021-02-12] MEDS: LACTOBACILLUS RHAMNOSUS GG 1 CAPSULE. PO SCH ×2 (08:25→21:48)
[2021-02-12] MEDS: MULTIVITAMIN with MINERAL TABLET. PO SCH (08:25)
[2021-02-12] MEDS: ALLOPURINOL 100 MG TABLET. PO SCH (08:25)
[2021-02-12] MEDS: CLOPIDOGREL BISULFATE 75 MG TABLET PO SCH (08:25)
[2021-02-12] MEDS: PANTOPRAZOLE 40 MG TABLET.DR. PO SCH (08:25)
[2021-02-12] MEDS: SODIUM BICARBONATE 650 MG TABLET. PO SCH ×3 (08:25→21:43)
[2021-02-12] MEDS: CALCIUM CARBONATE 500 MG TABLET PO SCH ×2 (08:26→17:30)
[2021-02-12] MEDS: ASPIRIN ENTERIC COATED 81 MG TABLET.DR. PO SCH (08:26)
[2021-02-12] MEDS: SENNOSIDES/DOCUSATE 8.6/50MG TABLET. PO SCH (08:26)
[2021-02-12] MEDS: VANCOMYCIN PER PHARMACY MC PRN (09:52)
--- NOTE | 2021-02-12 10:56 | PDOC ---
DATE OF SERVICE DATE: 02/12/21 TIME: 10:52 SUBJECTIVE ROS Stable, transferred out of ICU OBJECTIVE Vital Signs Vital Signs Date Time Temp Pulse Resp B/P (MAP) Pulse Ox O2 Delivery O2 Flow Rate FiO2 02/12/21 08:24 62 02/12/21 08:00 Room Air 2.0 02/12/21 07:00 97.8 18 126/ 93 97.8 I & 0 Intake and Output 02/12/21 07:00 Intake Total 850 ml Output Total 0 ml Balance 850 ml Intake Oral 850 ml Output Urine Total 0 ml # Bowel Movements 1 PHYSICAL EXAM Physical Exam GENERAL: no acute distress. HEENT: Normocephalic, atraumatic and anicteric. Oral mucosa moist. NECK: Supple. LUNGS: Clear bilaterally. Non labored HEART: S1, S2. No murmurs. ABDOMEN: Soft, nontender, and nondistended. EXTRM: Lt AVF , No Bruit/Thrill today (02/12/21) ; Rt BKA NEURO: Alert and oriented x 3, grossly nonfocal. DIAGNOSIS/ASSESSMENT Assessment & Plan ESRD on HD TTS @ [facility] ,no indication for dialysis today Access AVF - No bruit Thrill today ; Fistulogram Ordered . Recently started on PD as well but had to switch to HD 2/2 Fluid retention . Flush PD cathter, michael Blankenship . Avoid PICC /Mid line Anemia - ANNIA Gangrene right 5th toe/lateral foot and right heel - S/P Ray amputation of the right fifth toe including the metatarsal head. Rt BKA 02/08 -. Post procedure hypotensive - in ICU since HTN - Hypotensive since BKA requiring pressor support . Resolved DM per primary COMMENT/RELEVANT DATA Meds Current Medications Medications (Trade) Dose Ordered Sig/Michelle Start Time Stop Time Status Last Admin Dose Admin Acetaminophen (Tylenol) 650 mg PRN Q6HRS PRN 02/03/21 13:30 Albumin Human 100 ml @ 100 mls/hr 1X PRN PRN 02/10/21 15:00 02/10/21 15:25 100 MLS/HR Allopurinol (Zyloprim) 100 mg DAILY 02/03/21 14:00 02/12/21 08:25 100 MG Amlodipine Besylate (Norvasc) 5 mg DAILY 02/03/21 14:00 02/12/21 08:24 5 MG Anastrozole (Arimidex) 1 mg DAILY 02/03/21 14:00 02/12/21 08:22 1 MG Aspirin (Ecotrin) 81 mg DAILY 02/04/21 09:00 02/12/21 08:26 81 MG Atorvastatin Calcium (Lipitor) 80 mg HS 02/03/21 21:00 02/11/21 20:49 80 MG Calcium Carbonate/ Glycine (Oscal) 750 mg BIDWMEALS 02/03/21 17:00 02/12/21 08:26 750 MG Cefazolin Sodium 1 gm/Sodium Chloride 500 ml @ 500 mls/hr 1X ONCE 02/08/21 06:00 02/08/21 06:59 DC 02/08/21 12:35 Cefepime HCl (Maxipime) 3 gm QSA 02/10/21 16:00 02/10/21 18:38 3 GM Clopidogrel Bisulfate (Plavix) 75 mg DAILY 02/04/21 09:00 02/12/21 08:25 75 MG Desflurane (Suprane) 30 ml STK-MED ONCE 02/02/21 15:09 02/02/21 15:10 DC Dexamethasone Sodium Phosphate (Decadron) 4 mg STK-MED ONCE 02/02/21 15:09 02/02/21 15:09 DC Dextrose (Dextrose 50%-Water Syringe) 12.5 gm PRN Q15MIN PRN 02/09/21 18:45 Ephedrine Sulfate (ePHEDrine PF IN SALINE SYRINGE) 50 mg STK-MED ONCE 02/02/21 15:00 02/02/21 15:00 DC Epoetin Galileo-epbx (RETACRIT for ESRD PTS) 10,000 unit MoWeFr@2100 02/02/21 21:00 02/09/21 20:29 10,000 UNIT Fentanyl Citrate (Fentanyl 2ml Vial) 25 mcg PRN Q1HR PRN 02/08/21 13:45 02/08/21 17:50 25 MCG Ferrous Sulfate (Feosol) 325 mg DAILYWBKFT 02/03/21 14:00 02/12/21 08:21 325 MG Fludrocortisone Acetate (Florinef) 0.1 mg DAILY 02/07/21 13:30 02/12/21 08:24 0.1 MG Furosemide (Lasix) 80 mg DAILY 02/03/21 14:00 02/12/21 08:25 80 MG Heparin Sodium (Porcine) (Heparin Sodium) 8,000 unit 1X ONCE 02/07/21 10:00 02/07/21 10:01 DC 02/07/21 09:50 10,000 UNIT Heparin Sodium/ Sodium Chloride (HEPARIN for ARTERIAL LINE FLUSH) 1,000 unit 1X ONCE 02/07/21 08:30 02/07/21 08:31 DC 02/07/21 08:30 1,000 UNIT Hydromorphone HCl (Dilaudid) 0.5 mg PRN Q10MIN PRN 02/08/21 06:00 02/09/21 05:59 DC Info (CONTRAST GIVEN -- Rx MONITORING) 1 each PRN DAILY PRN 02/07/21 08:45 02/09/21 08:44 DC Info (PHARMACY MONITORING -- do not chart) 1 each PRN DAILY PRN 02/10/21 06:45 Insulin Glargine (Lantus Syringe) 10 unit QHS 02/03/21 21:00 02/06/21 07:54 DC 02/04/21 22:36 10 UNIT Insulin Human Lispro (HumaLOG) 0-7 UNITS TIDWMEALS 02/10/21 08:00 02/10/21 18:41 3 UNITS Insulin Human Regular (HumuLIN R VIAL) 100 unit TIDAC 02/03/21 16:30 02/03/21 13:32 DC Iodixanol (Visipaque 320) 100 ml 1X ONCE 02/07/21 08:30 02/07/21 08:31 DC 02/07/21 11:16 60 ML Lactobacillus Rhamnosus (Culturelle) 1 cap BID 02/05/21 12:00 02/12/21 08:25 1 CAP Latanoprost (Xalatan) 1 drop QHS 02/03/21 21:00 02/11/21 20:49 1 DROP Levothyroxine Sodium (Synthroid) 200 mcg DAILY06 02/03/21 14:00 02/12/21 05:53 200 MCG Lidocaine HCl (Lidocaine 1% 20ml Vial) 20 ml 1X ONCE 02/07/21 08:30 02/07/21 08:31 DC 02/07/21 09:25 16 ML Lidocaine HCl (Lidocaine Pf 2% Vial) 5 ml STK-MED ONCE 02/08/21 09:37 02/08/21 09:37 DC Lidocaine/ Prilocaine (Emla) 1 pallavi 1X PRN ONCE 02/10/21 09:15 02/10/21 09:33 DC 02/10/21 14:11 1 PALLAVI Lisinopril (Prinivil) 20 mg DAILY 02/03/21 14:00 02/12/21 08:23 20 MG Methocarbamol (Robaxin) 500 mg PRN Q8HRS PRN 02/03/21 13:30 02/06/21 07:54 DC Midazolam HCl (Versed) 2 mg 1X ONCE 02/07/21 08:30 02/07/21 08:31 DC 02/07/21 09:44 2 MG Midodrine (Proamatine) 5 mg PRN DAILY PRN 02/06/21 08:15 02/09/21 06:45 5 MG Morphine Sulfate (Morphine Sulfate) 1 mg PRN Q10MIN PRN 02/08/21 06:00 02/09/21 05:59 DC Multivitamins (Thera M Plus) 1 tab DAILY 02/07/21 14:00 02/12/21 08:25 1 TAB Nitroglycerin (Nitroglycerin) 200 mcg STK-MED ONCE 02/07/21 08:44 02/07/21 08:44 DC Non-Formulary Medication (Amlodipine Besylate/ Benazepril (Amlodipine-Benazepril 5-20 Mg)) 1 cap DAILY 02/04/21 09:00 UNV Non-Formulary Medication (Omeprazole Magnesium (Prilosec Otc)) 1 tab DAILY 02/04/21 09:00 UNV Non-Formulary Medication (Pregabalin (Lyrica)) 150 mg Q3DAYS 02/06/21 09:00 UNV Norepinephrine Bitartrate 8 mg/ Dextrose 258 ml @ 20.472 mls/ hr CONT PRN 02/09/21 03:15 02/12/21 09:51 DC 02/10/21 02:46 20.472 MLS/HR Ondansetron HCl (Zofran Odt) 4 mg Q6HRS PRN 02/03/21 13:45 02/11/21 07:49 4 MG Ondansetron HCl (Zofran) 4 mg STK-MED ONCE 02/08/21 09:37 02/08/21 09:37 DC Oxycodone HCl (Roxicodone) 5 mg PRN Q6HRS PRN 02/03/21 14:15 UNV Oxycodone/ Acetaminophen (Percocet 5/325) 2 tab PRN Q4HRS PRN 02/07/21 11:45 02/11/21 23:55 2 TAB Pantoprazole Sodium (Protonix) 40 mg DAILYAC 02/03/21 14:00 02/12/21 08:25 40 MG Phenylephrine HCl (Elvis-Synephrine Inj) 10 mg STK-MED ONCE 02/08/21 10:14 02/08/21 10:14 DC Phenylephrine HCl (PHENYLEPHRINE in 0.9% NACL PF) 1 mg STK-MED ONCE 02/08/21 09:37 02/08/21 09:37 DC Phenylephrine HCl 50 mg/Sodium Chloride 255 ml @ 16.187 mls/ hr CONT PRN 02/10/21 14:30 Piperacillin Sod/ Tazobactam Sod 2.25 gm/Sodium Chloride 50 ml @ 100 mls/hr Q8HRS 02/02/21 09:00 02/05/21 15:15 DC 02/05/21 05:53 100 MLS/HR Piperacillin Sod/ Tazobactam Sod 4.5 gm/Sodium Chloride 100 ml @ 200 mls/hr 1X ONCE 02/01/21 17:45 02/01/21 18:14 DC 02/01/21 18:10 200 MLS/HR Polyethylene Glycol (miraLAX PACKET) 17 gm PRN DAILY PRN 02/03/21 13:30 02/11/21 02:43 17 GM Pramipexole Dihydrochloride (miraPEX) 0.25 mg DAILY 02/04/21 09:00 UNV Prochlorperazine Edisylate (Compazine) 5 mg PACU PRN PRN 02/08/21 06:00 02/09/21 05:59 DC Propofol (Diprivan) 200 mg STK-MED ONCE 02/08/21 09:37 02/08/21 09:37 DC Protamine Sulfate (Protamine) 50 mg 1X ONCE 02/07/21 11:15 02/07/21 11:17 DC 02/07/21 11:12 50 MG Ringer's Solution 1,000 ml @ 30 mls/hr Q24H 02/08/21 06:00 02/08/21 17:59 DC Senna/Docusate Sodium (Senna Plus) 1 tab DAILY 02/03/21 14:00 02/12/21 08:26 1 TAB Sennosides (Senna) 8.6 mg PRN BID PRN 02/03/21 13:30 02/03/21 15:58 8.6 MG Sevoflurane (Ultane) 30 ml STK-MED ONCE 02/02/21 15:09 02/02/21 15:10 DC Sodium Bicarbonate (Sodium Bicarbonate) 650 mg TID 02/03/21 14:00 02/12/21 08:25 650 MG Sodium Chloride 500 ml @ 500 mls/hr 1X ONCE 02/10/21 12:45 02/10/21 13:44 DC Vancomycin HCl (Vanco Per Pharmacy) 1 each PRN DAILY PRN 02/02/21 08:30 02/12/21 09:52 1 EACH Vancomycin HCl (Vancomycin Random Level) 1 each 1X ONCE 02/03/21 05:00 02/03/21 05:01 DC Vancomycin HCl 500 mg/Sodium Chloride 100 ml @ 100 mls/hr QTUTHSA 02/06/21 16:00 02/10/21 18:42 100 MLS/HR Vancomycin HCl 1 gm/Sodium Chloride 250 ml @ 250 mls/hr 1X ONCE 02/03/21 16:00 02/03/21 16:59 DC 02/03/21 16:55 250 MLS/HR Vasopressin (Vasostrict) 20 unit STK-MED ONCE 02/08/21 11:24 02/08/21 11:24 DC Lab Laboratory Tests Test 02/11/21 12:43 02/11/21 17:52 02/12/21 07:45 Glucose (Fingerstick) 168 mg/dL (70-99) 113 mg/dL (70-99) 75 mg/dL (70-99) Results All relevant outside records, renal labs, imaging studies, telemetry/EKG's were reviewed. Justicifation of Admission Dx: Justifications for Admission: Justification of Admission Dx: Yes DAVID BOWMAN MD Feb 12, 2021 10:56
--- NOTE | 2021-02-12 12:57 | PDOC ---
ERIS RITTER EDYTA 02/12/21 1257: CARDIO Progress Notes Date and Time Date of Service 02/12/21 Time of Evaluation 1300 Subjective Subjective: No Chest Pain, No shortness of breath, No Palpitations Vitals Vitals Vital Signs Date Time Temp Pulse Resp B/P (MAP) Pulse Ox O2 Delivery O2 Flow Rate FiO2 02/12/21 12:17 64 112/44 02/12/21 11:00 97.2 16 90 Room Air 97.2 02/12/21 08:00 2.0 Weight Weight [ ] Input and Output Intake and Output Intake and Output 02/12/21 07:00 Intake Total 850 ml Output Total 0 ml Balance 850 ml Intake Oral 850 ml Output Urine Total 0 ml # Bowel Movements 1 Laboratory Labs Laboratory Tests Test 02/11/21 17:52 02/12/21 07:45 02/12/21 11:21 Glucose (Fingerstick) 113 mg/dL (70-99) 75 mg/dL (70-99) 112 mg/dL (70-99) Microbiology Micro Microbiology 02/01/21 Blood Culture - Final, Complete NO GROWTH AFTER 5 DAYS Review of Systems Constitutional: yes: weakness, alert Eyes: Yes: no symptom reported Pulmonary: Yes no symptom reported Cardiovascular: Yes no symptom reported Gastrointestional: Yes: constipation Genitourinary: Yes: no symptom reported Musculoskeletal: Yes: foot pain Skin: Yes no symptom reported Psychiatric/Neurological: Yes: no symptom reported Endocrine: Yes: no symptom reported Hematologic/Lymphatic: Yes: no symptom reported Physical Exam HEENT: Neck Supple W Full Motion Chest: Symmetric LUNGS: Clear to Auscultation, Other (diminished bases) Heart: RRR (SR), other (3/6 systolic murmur ) Abdomen: Soft N/T Extremities: Other (left BKA. dressing and brace intact, bilateral UE edema ) Neurology: alert, oriented, follow commands, other (dorwsy) Assessment Assessment 1. Arrhythmia; frequent PVCs and PACs 2. PAD s/p Right SFA [employer] 3. Recent gangrene infection of LLE s/p BKA 4. CAD s/p CABG. Follows with Dr. Gayla BOWDEN. Cath 06/17 with 2/3 grafts patent with 100% occlusion of SVG-OM. 5. Cardiomyopathy; echo with LVEF 25% with severe global hypokinesis and moderate to severe , appears compensated 6. Hypotension; on Florinef. BP adequate. Also on amlodipine, lisinopril. 6. Hyperlipidemia; statin 7. Diabetes, II 8. ESRD on HD. LUE fistulogram/declot planned today as thrombosis is suspected 9. Hypothyroidism; on replacement Recommendations Secondary prevention; ASA, Plavix, statin HF optimization. Unable to start BB with baseline HR near 60 Consider discontinuing lisinopril, amlodipine and initiating Entresto given CMP if blood pressure will tolerate Supportive care [facility] Records reviewed CARDIAC CATHETERIZATION REPORT DATE: 06/09/2019 CONCLUSION: Severe blackfeet 3-vessel coronary artery disease. 100% occlusion of SVG-OM. Widely patent MADRID-LAD, SVG-LPL grafts. RECOMMENDATIONS: Standard post catheterization care. Optimize medical therapy of CAD to prevent future cardiovascular events. Due to the patient's renal insufficiency, medical therapy of her NSTEMI, and optimization of her CV therapy is recommended at this time. 09/04/20 - 2D + DOPPLER ECHO Interpretation Summary Patient declined use of left ventricular opacification agent to enhance imaging. The left ventricle is mildly dilated. The left ventricular wall thickness is normal. Normal geometry. The left ventricular systolic function is mildly reduc ed. The ejection fraction by Garay's biplane method is 45%. There are segmental wall motion abnormalities, as coded in the diagram below. Right Ventricle: Ventricle not well seen. The right ventricle is mildly dilated. The right ventricular systolic function is probably normal. Left Atrium: Moderately dilated. Mitral Valve: Non-specific thickening. No stenosis. At least moderate regurgitation. There is moderate mitral annular calcification. Aortic Valve: The valve is sclerotic. Probably tricuspid. No Doppler evidence of stenosis. No regurgitation. Tricuspid Valve: Normal valve structure. Mild to moderate regurgitation. Estimated Peak Systolic PA Pressure 67 mmHg No pericardial effusion. Compared with study dated 06/03/2019, no significant change is noted. Justicifation of Admission Dx: Justifications for Admission: Justification of Admission Dx: Yes ANGEL JOHNSON MD 02/12/21 1614: CARDIO Progress Notes Plan Plan The patient was seen and interviewed as well as examined at the bedside. The chart was reviewed. The case was discussed. Agree with the plan of care. ERIS RITTER APRN Feb 12, 2021 12:57 ANGEL JOHNSON MD Feb 12, 2021 16:14
--- NOTE | 2021-02-12 13:41 | PDOC ---
[facility] PROGRESS NOTE Date of Service DOS: DATE: 02/12/21 TIME: 13:35 Chief Complaint Chief Complaint s/p amputation, now has hypotension, treating mild shock, as sepsis, fluid balance OK on levaphed, in ICU Right fifth toe gangrene with right lateral and right heel wounds - s/p Ray amputation of the right fifth toe including the metatarsal head I and D of the right heel February 02, 2021 Peripheral vascular disease, status post angioplasty at on 01/16/2021. End-stage renal disease, on hemodialysis. Diabetes with neuropathy. Protein-calorie malnutrition. Abnormal LFTs. Anemia. History of Present Illness History of Present Illness 02/12/2021 No acute events overnight. Patient was able to wean off her Levophed and her blood pressures have remained stable. No pain at this time. Tolerating breakfast. PT OT ordered and pending. Recommendations for further rehab. Surgical site dressings are clean dry intact. Patient's chart, labs, images were reviewed and discussed with RN 02/11, better BP off elizabeth cnot support, HD yesteday went well fluid balance OK, looks weak left arm swollen a little today, dependent, she lays on that side, will try to turn to other side 16, BP still low, needs HD today, will give 500 mls bolus weaknes, lethargy, right arm swelling is much better 10.15, prior hypotnesion days agoo too, in ICU surg went well, limb was not able to be salvaged, BKA done pt in good spiritis, eating well Ms Ruelas is a 65-year-old female with history of diabetes; hypertension; coronary artery disease; CABG; end-stage renal disease, on dialysis; peripheral vascular disease, who underwent angiogram and angioplasty of the right anterior tibial artery at on 01/16/2021 who presented to the ER with complaints of wounds of the right lower extremity for a couple of weeks. She denies any history of injury. Denies fevers, chills, nausea, vomiting, diarrhea, headache, sore throat, difficulty swallowing, shortness of breath, or cough. 02/07: hypotension after angio, will bolus 1 liter and give fludro, Continue IV abx, ID following, on zosyn. Vasc plans limb salvage surg Overnight no events. She has been noticing some pill esophagitis having to suction to clear her own secretions. Right leg pain has improved. Afebrile. Vitals/I&O Vitals/I&O: Vital Signs Date Time Temp Pulse Resp B/P (MAP) Pulse Ox O2 Delivery O2 Flow Rate FiO2 02/12/21 12:17 64 112/44 02/12/21 11:00 97.2 16 90 Room Air 97.2 02/12/21 08:00 2.0 I & O 02/11/21 02/11/21 02/12/21 15:00 23:00 07:00 Intake Total 250 ml 240 ml 360 ml Output Total 0 ml Balance 250 ml 240 ml 360 ml Physical Exam Physical Exam: GENERAL: Alert and oriented x 3 female, lying in bed comfortably, in no acute distress. HEENT: Normocephalic, atraumatic and anicteric. No thrush. Oral mucosa moist. NECK: Supple. LUNGS: Clear bilaterally. No wheezing. HEART: S1, S2. No murmurs. ABDOMEN: Soft, nontender, and nondistended. EXTREMITIES: Right BKA BACK: Reveals normal curvature. No CVA tenderness. NEUROLOGIC: Alert and oriented x 3, grossly nonfocal. PSYCHIATRIC: Calm and cooperative. General: Alert, Oriented X3, Cooperative Heart: Regular rate, Normal S1, Normal S2, No murmurs, Gallops Lungs: Clear Abdomen: Normal bowel sounds, Soft, No tenderness, No hepatosplenomegaly, No masses Extremities: Other (Right lower extremity dressings and boot. Dressings are clean dry and intact.) Labs Labs: Laboratory Tests Test 02/11/21 17:52 02/12/21 07:45 02/12/21 11:21 Glucose (Fingerstick) 113 mg/dL (70-99) 75 mg/dL (70-99) 112 mg/dL (70-99) Assessment and Plan Assessmemt and Plan Problems Medical Problems: (1) End stage kidney disease Status: Acute (2) Leukocytosis Status: Acute (3) Right foot infection Status: Acute Comment Review of Relevant I have reviewed the following items mimi (where applicable) has been applied. Justifications for Admission Other Justification REINALDO DONAHUE MD Feb 12, 2021 13:41
--- NOTE | 2021-02-12 13:50 | PDOC ---
Provider Note Date of Service: DATE: 02/12/21 TIME: 13:45 Provider Note IR NOTE Asked for LUE fistulogram/declot as there is no thrill suggesting thrombosis. Will need anticoagulation and likely tPA during procedure. Will ask vascular surgery if ok from there perspective. Will recheck chemistry . Should dialysis become urgent/emergent could place temp cath until fistula is up and running. Justifications for Admission Other Justification JURGEN MASON MD Feb 12, 2021 13:50
--- NOTE | 2021-02-12 13:56 | NUR ---
SS following up with discharge planning. SS reviewed pt chart and discussed with pt RN. Pt is currently on room air. COVID19 negative. Pt on IV Cefepime and IV Vancomycin. Pt had Right BKA. Pt has outpatient hemodialysis at [facility] Friday, , and Friday. PT/OT ordered. Pt is skilled rehabilitation resident from [facility], ; fax [phone]. Clinical updates phoned and faxed to [facility]. SS will continue to follow for discharge planning.
[2021-02-12 14:57] LABS: CALCIUM 7.6 mg/dL (8.5-10.1); CREATININE 6.5 mg/dL (0.6-1.0); GFR 6.4; POTASSIUM 4.1 mmol/L (3.5-5.1)
[2021-02-12] MEDS: oxyCODONE/APAP 5/325 1 TAB TABLET PO PRN (17:32)
[2021-02-12] MEDS: ATORVASTATIN CALCIUM 40 MG TABLET. PO SCH (21:43)
[2021-02-12] MEDS: EPOETIN ALFA-EPBX for ESRD 20,000 UNIT/ML VIAL. SQ SCH (21:47)
[2021-02-12] MEDS: LATANOPROST 0.005% OPHTH SOLUTION 2.5ML BOTTLE. OU SCH (21:47)
[2021-02-13 03:00] VITALS: BP 127/57
[2021-02-13] MEDS: PANTOPRAZOLE 40 MG TABLET.DR. PO SCH (06:10)
[2021-02-13] MEDS: LEVOTHYROXINE 100 MCG TABLET PO SCH (06:10)
[2021-02-13 07:00] VITALS: BP 104/58
[2021-02-13] MEDS ORDERED: IODIXANOL 320 MG/ML 100 ML VIAL. ONE (07:53)
[2021-02-13] MEDS ORDERED: LIDOCAINE WITH 8.4% SOD BICARB 3 ML DISP.SYRIN. ONE (07:54)
[2021-02-13] MEDS: INSULIN LISPRO 300 UNITS/3 ML VIAL. SQ SCH ×3 (08:00→17:00)
[2021-02-13] MEDS: CALCIUM CARBONATE 500 MG TABLET PO SCH ×2 (08:00→17:00)
[2021-02-13] MEDS ORDERED: ONDANSETRON PF 4 MG/2 ML VIAL. ONE (08:57)
[2021-02-13] MEDS ORDERED: fentaNYL PF VIAL 100 MCG/2 ML VIAL ONE (08:57)
[2021-02-13] MEDS ORDERED: MIDAZOLAM HCL/PF 2 MG/2 ML VIAL. ONE (08:57)
[2021-02-13] MEDS ORDERED: HEPARIN for IV BOLUS 10,000 UNIT/10 ML VIAL. ONE (08:57)
[2021-02-13] MEDS: SODIUM BICARBONATE 650 MG TABLET. PO SCH ×3 (09:00→22:38)
[2021-02-13 09:02] LABS: BASO % 0 % (0-3); EOS # 0.1 x10^3/uL (0.0-0.7); EOS % 1 % (0-3); HEMATOCRIT 31.1 % (36.0-47.0); HEMOGLOBIN 9.9 g/dL (12.0-15.5); LYMPH # 0.7 x10^3/uL (1.0-4.8); LYMPH % 6 % (24-48); MEAN CORPUSCULAR HEMOGLOBIN 31 pg (25-35); MEAN CORPUSCULAR HGB CONC 32 g/dL (31-37); MEAN CORPUSCULAR VOLUME 98 fL (79-100); MONO # 0.5 x10^3/uL (0.0-1.1); MONO % 5 % (0-9); NEUT # 9.3 x10^3/uL (1.8-7.7); NEUT % 87 % (31-73); PLATELET COUNT 195 x10^3/uL (140-400); RED BLOOD COUNT 3.19 x10^6/uL (3.50-5.40); RED CELL DISTRIBUTION WIDTH 17.3 % (11.5-14.5); WHITE BLOOD COUNT 10.6 x10^3/uL (4.0-11.0)
[2021-02-13 09:04] LABS: ALBUMIN 1.3 g/dL (3.4-5.0); CALCIUM 7.8 mg/dL (8.5-10.1); GFR 5.9; PHOSPHORUS 6.3 mg/dL (2.6-4.7); POTASSIUM 4.2 mmol/L (3.5-5.1)
[2021-02-13] MEDS: VANCOMYCIN PER PHARMACY MC PRN (09:34)
[2021-02-13] MEDS: fentaNYL PF VIAL 100 MCG/2 ML VIAL IVP PRN (09:44)
[2021-02-13] MEDS ORDERED: LIDOCAINE WITH 8.4% SOD BICARB 3 ML DISP.SYRIN. IJ ONE (09:45)
[2021-02-13] MEDS ORDERED: ONDANSETRON PF 4 MG/2 ML VIAL. IVP ONE (09:45)
[2021-02-13] MEDS ORDERED: IODIXANOL 320 MG/ML 100 ML VIAL. IART ONE (09:45)
[2021-02-13] MEDS ORDERED: MIDAZOLAM HCL/PF 2 MG/2 ML VIAL. IV ONE (09:45)
[2021-02-13] MEDS ORDERED: fentaNYL PF VIAL 100 MCG/2 ML VIAL IV ONE (09:45)
[2021-02-13 09:48] VITALS: BP 99/46
[2021-02-13] MEDS: MIDODRINE 2.5 MG TABLET PO SCH ×3 (10:13→18:00)
[2021-02-13] MEDS: FUROSEMIDE 80 MG TABLET. PO SCH (10:13)
[2021-02-13] MEDS ORDERED: IV NORMAL SALINE 1000ML BAG 1,000 ML IV PRN ×2 (10:15)
[2021-02-13] MEDS ORDERED: DIALYSIS PATIENT. MC PRN ×2 (10:15)
--- NOTE | 2021-02-13 10:16 | NUR ---
SS following up with discharge planning. SS reviewed pt chart and discussed with pt RN. Pt is currently on room air. COVID19 negative. Pt on IV Cefepime and IV Vancomycin. Pt had Right BKA. Pt has outpatient hemodialysis at [facility] Friday, , and Friday. PT/OT ordered and recommended fpc unit. Pt is skilled rehabilitation resident from [facility], ; fax [phone]. Pt not wanting to return at this time. Pt and pt's DPOA, Olive Negrete, , requesting transfer to this AM. SS contacted transfer team, , and spoke with Ashley and was told that pt was declined for transfer and notified SS that they have no beds available at this time. Pt's DPOA notified. Pt's DPOA to discuss other SNU options with pt. Pt having Shuntogram today. SS will continue to follow for discharge planning.
[2021-02-13] MEDS: oxyCODONE/APAP 5/325 1 TAB TABLET PO PRN (11:16)
--- NOTE | 2021-02-13 11:36 | RAD ---
02/13/2021 1. Left upper extremity AV fistulogram. 2. 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 Patient presen ts for fistulogram and intervention. Upon presenting to the IR suite, physical exam demonstrates the fistula to be pulsatile, but patent. Limited ultrasound evaluation demonstrates the fistula to be erick ssly patent, though mild areas of, chronic appearing eccentric thrombus are noted. The left upper ext remity was prepped and draped using maximum sterile barrier technique. 1% lidocaine was Mr. for local anesthesia. The fistula was accessed directed towards the venous outflow. Fistulogram as were obtain ed. Initially contrast was noted to reflux across the arterial anastomosis which is patent. There pallavi ears to be a segment of graft, which anastomosis with the cephalic vein. The graft and outflow vein a re patent. Within the cephalic arch there is a high-grade stenosis. More central veins are widely pat ent. The stenosis was traversed and balloon angioplasty was performed with a 7 mm x 40 mm high-pressu re balloon. Mild discomfort was noted during angioplasty. This resulted in significantly improved mor phology and flow through the fistula. Pulsatility was decreased. Sheath was removed over pursestring suture. Additional pressure was held. Hemostasis was achieved. No immediate complications were identi fied. Total fluoroscopy time: 1.5 min Dose area product: 3Gycm2 The procedures performed under conscious sedation including continuous cardiopulmonary monitoring via a dedicated sedation nurse. [id number] sedation time: 40 min IMPRESSION: High-grade cephalic arch stenosis successfully treated with balloon angioplasty. Electronically signed by: Micky Kirkland MD (02/13/2021 11:33 AM) [id number]
--- NOTE | 2021-02-13 12:11 | PDOC ---
DATE OF SERVICE DATE: 02/13/21 TIME: 12:08 SUBJECTIVE ROS Seen during dialysis, No complaints . States feeling better OBJECTIVE Vital Signs Vital Signs Date Time Temp Pulse Resp B/P (MAP) Pulse Ox O2 Delivery O2 Flow Rate FiO2 02/13/21 11:16 100 Room Air 2.0 02/13/21 10:13 80 99/46 02/13/21 09:48 12 02/13/21 07:00 97.7 97.7 I & 0 Intake and Output 02/13/21 07:00 Intake Total 1000 ml Balance 1000 ml Intake Oral 1000 ml PHYSICAL EXAM Physical Exam ENERAL: no acute distress. HEENT: Normocephalic, atraumatic and anicteric. Oral mucosa moist. NECK: Supple. LUNGS: Clear bilaterally. Non labored HEART: S1, S2. No murmurs. ABDOMEN: Soft, nontender, and nondistended. EXTRM: Lt AVF , No Bruit/Thrill today (02/12/21) ; Rt BKA NEURO: Alert and oriented x 3, grossly nonfocal. DIAGNOSIS/ASSESSMENT Assessment & Plan ESRD on HD TTS @ [facility] ,no indication for dialysis today Access AVF - No bruit Thrill noted on 02/12 . S/p Fistulogram 02/13- High-grade cephalic arch stenosis successfully treated with balloon angioplasty. Recently started on PD as well but had to switch to HD 2/2 Fluid retention . Flush PD cathter, michael CANCINOn . Avoid PICC /Mid line Anemia - Continue ANNIA Gangrene right 5th toe/lateral foot and right heel - S/P Ray amputation of the right fifth toe including the metatarsal head. Rt BKA 02/08 -. Post procedure hypotensive - in ICU since HTN - Hypotensive since BKA requiring pressor support . Resolved DM per primary COMMENT/RELEVANT DATA Meds Current Medications Medications (Trade) Dose Ordered Sig/Michelle Start Time Stop Time Status Last Admin Dose Admin Acetaminophen (Tylenol) 650 mg PRN Q6HRS PRN 02/03/21 13:30 Albumin Human 100 ml @ 100 mls/hr 1X PRN PRN 02/10/21 15:00 02/10/21 15:25 100 MLS/HR Allopurinol (Zyloprim) 100 mg DAILY 02/03/21 14:00 02/12/21 08:25 100 MG Amlodipine Besylate (Norvasc) 5 mg DAILY 02/03/21 14:00 02/12/21 15:35 DC 02/12/21 08:24 5 MG Anastrozole (Arimidex) 1 mg DAILY 02/03/21 14:00 02/12/21 08:22 1 MG Aspirin (Ecotrin) 81 mg DAILY 02/04/21 09:00 02/12/21 08:26 81 MG Atorvastatin Calcium (Lipitor) 80 mg HS 02/03/21 21:00 02/12/21 21:43 80 MG Calcium Carbonate/ Glycine (Oscal) 750 mg BIDWMEALS 02/03/21 17:00 02/12/21 17:30 750 MG Cefazolin Sodium 1 gm/Sodium Chloride 500 ml @ 500 mls/hr 1X ONCE 02/08/21 06:00 02/08/21 06:59 DC 02/08/21 12:35 Cefepime HCl (Maxipime) 3 gm QSA 02/10/21 16:00 02/10/21 18:38 3 GM Clopidogrel Bisulfate (Plavix) 75 mg DAILY 02/04/21 09:00 02/12/21 08:25 75 MG Desflurane (Suprane) 30 ml STK-MED ONCE 02/02/21 15:09 02/02/21 15:10 DC Dexamethasone Sodium Phosphate (Decadron) 4 mg STK-MED ONCE 02/02/21 15:09 02/02/21 15:09 DC Dextrose (Dextrose 50%-Water Syringe) 12.5 gm PRN Q15MIN PRN 02/09/21 18:45 Ephedrine Sulfate (ePHEDrine PF IN SALINE SYRINGE) 50 mg STK-MED ONCE 02/02/21 15:00 02/02/21 15:00 DC Epoetin Galileo-epbx (RETACRIT for ESRD PTS) 10,000 unit MoWeFr@2100 02/02/21 21:00 02/12/21 21:47 10,000 UNIT Fentanyl Citrate (Fentanyl 2ml Vial) 50 mcg 1X ONCE 02/13/21 09:45 02/13/21 09:52 DC 02/13/21 09:45 50 MCG Ferrous Sulfate (Feosol) 325 mg DAILYWBKFT 02/03/21 14:00 02/12/21 08:21 325 MG Fludrocortisone Acetate (Florinef) 0.1 mg DAILY 02/07/21 13:30 02/12/21 08:24 0.1 MG Furosemide (Lasix) 80 mg DAILY 02/03/21 14:00 02/13/21 10:13 80 MG Heparin Sodium (Porcine) (Heparin Sodium) 10,000 unit STK-MED ONCE 02/13/21 08:57 02/13/21 08:57 DC Heparin Sodium/ Sodium Chloride (HEPARIN for ARTERIAL LINE FLUSH) 1,000 unit 1X ONCE 02/13/21 09:45 02/13/21 09:52 DC 02/13/21 09:42 1,000 UNIT Hydromorphone HCl (Dilaudid) 0.5 mg PRN Q10MIN PRN 02/08/21 06:00 02/09/21 05:59 DC Info (CONTRAST GIVEN -- Rx MONITORING) 1 each PRN DAILY PRN 02/07/21 08:45 02/09/21 08:44 DC Info (PHARMACY MONITORING -- do not chart) 1 each PRN DAILY PRN 02/13/21 10:15 UNV Insulin Glargine (Lantus Syringe) 10 unit QHS 02/03/21 21:00 02/06/21 07:54 DC 02/04/21 22:36 10 UNIT Insulin Human Lispro (HumaLOG) 0-7 UNITS TIDWMEALS 02/10/21 08:00 02/10/21 18:41 3 UNITS Insulin Human Regular (HumuLIN R VIAL) 100 unit TIDAC 02/03/21 16:30 02/03/21 13:32 DC Iodixanol (Visipaque 320) 30 ml 1X ONCE 02/13/21 09:45 02/13/21 09:52 DC 02/13/21 09:42 30 ML Lactobacillus Rhamnosus (Culturelle) 1 cap BID 02/05/21 12:00 02/12/21 21:48 1 CAP Latanoprost (Xalatan) 1 drop QHS 02/03/21 21:00 02/12/21 21:47 1 DROP Levothyroxine Sodium (Synthroid) 200 mcg DAILY06 02/03/21 14:00 02/13/21 06:10 200 MCG Lidocaine HCl (Buffered Lidocaine 1%) 2 ml 1X ONCE 02/13/21 09:45 02/13/21 09:52 DC 02/13/21 09:42 2 ML Lidocaine HCl (Lidocaine 1% 20ml Vial) 20 ml 1X ONCE 02/07/21 08:30 02/07/21 08:31 DC 02/07/21 09:25 16 ML Lidocaine HCl (Lidocaine Pf 2% Vial) 5 ml STK-MED ONCE 02/08/21 09:37 02/08/21 09:37 DC Lidocaine/ Prilocaine (Emla) 1 pallaiv 1X PRN ONCE 02/10/21 09:15 02/10/21 09:33 DC 02/10/21 14:11 1 PALLAVI Lisinopril (Prinivil) 20 mg DAILY 02/03/21 14:00 02/12/21 15:35 DC 02/12/21 08:23 20 MG Methocarbamol (Robaxin) 500 mg PRN Q8HRS PRN 02/03/21 13:30 02/06/21 07:54 DC Midazolam HCl (Versed) 1 mg 1X ONCE 02/13/21 09:45 02/13/21 09:52 DC 02/13/21 09:44 1 MG Midodrine (Proamatine) 5 mg PRN DAILY PRN 02/06/21 08:15 02/09/21 06:45 5 MG Morphine Sulfate (Morphine Sulfate) 1 mg PRN Q10MIN PRN 02/08/21 06:00 02/09/21 05:59 DC Multivitamins (Thera M Plus) 1 tab DAILY 02/07/21 14:00 02/12/21 08:25 1 TAB Nitroglycerin (Nitroglycerin) 200 mcg STK-MED ONCE 02/07/21 08:44 02/07/21 08:44 DC Non-Formulary Medication (Amlodipine Besylate/ Benazepril (Amlodipine-Benazepril 5-20 Mg)) 1 cap DAILY 02/04/21 09:00 UNV Non-Formulary Medication (Omeprazole Magnesium (Prilosec Otc)) 1 tab DAILY 02/04/21 09:00 UNV Non-Formulary Medication (Pregabalin (Lyrica)) 150 mg Q3DAYS 02/06/21 09:00 UNV Norepinephrine Bitartrate 8 mg/ Dextrose 258 ml @ 20.472 mls/ hr CONT PRN 02/09/21 03:15 02/12/21 09:51 DC 02/10/21 02:46 20.472 MLS/HR Ondansetron HCl (Zofran Odt) 4 mg Q6HRS PRN 02/03/21 13:45 02/11/21 07:49 4 MG Ondansetron HCl (Zofran) 4 mg 1X ONCE 02/13/21 09:45 02/13/21 09:52 DC 02/13/21 09:43 4 MG Oxycodone HCl (Roxicodone) 5 mg PRN Q6HRS PRN 02/03/21 14:15 UNV Oxycodone/ Acetaminophen (Percocet 5/325) 2 tab PRN Q4HRS PRN 02/07/21 11:45 02/13/21 11:16 2 TAB Pantoprazole Sodium (Protonix) 40 mg DAILYAC 02/03/21 14:00 02/13/21 06:10 40 MG Phenylephrine HCl (Elvis-Synephrine Inj) 10 mg STK-MED ONCE 02/08/21 10:14 02/08/21 10:14 DC Phenylephrine HCl (PHENYLEPHRINE in 0.9% NACL PF) 1 mg STK-MED ONCE 02/08/21 09:37 02/08/21 09:37 DC Phenylephrine HCl 50 mg/Sodium Chloride 255 ml @ 16.187 mls/ hr CONT PRN 02/10/21 14:30 Piperacillin Sod/ Tazobactam Sod 2.25 gm/Sodium Chloride 50 ml @ 100 mls/hr Q8HRS 02/02/21 09:00 02/05/21 15:15 DC 02/05/21 05:53 100 MLS/HR Piperacillin Sod/ Tazobactam Sod 4.5 gm/Sodium Chloride 100 ml @ 200 mls/hr 1X ONCE 02/01/21 17:45 02/01/21 18:14 DC 02/01/21 18:10 200 MLS/HR Polyethylene Glycol (miraLAX PACKET) 17 gm PRN DAILY PRN 02/03/21 13:30 02/11/21 02:43 17 GM Pramipexole Dihydrochloride (miraPEX) 0.25 mg DAILY 02/04/21 09:00 UNV Prochlorperazine Edisylate (Compazine) 5 mg PACU PRN PRN 02/08/21 06:00 02/09/21 05:59 DC Propofol (Diprivan) 200 mg STK-MED ONCE 02/08/21 09:37 02/08/21 09:37 DC Protamine Sulfate (Protamine) 50 mg 1X ONCE 02/07/21 11:15 02/07/21 11:17 DC 02/07/21 11:12 50 MG Ringer's Solution 1,000 ml @ 30 mls/hr Q24H 02/08/21 06:00 02/08/21 17:59 DC Senna/Docusate Sodium (Senna Plus) 1 tab DAILY 02/03/21 14:00 02/12/21 08:26 1 TAB Sennosides (Senna) 8.6 mg PRN BID PRN 02/03/21 13:30 02/03/21 15:58 8.6 MG Sevoflurane (Ultane) 30 ml STK-MED ONCE 02/02/21 15:09 02/02/21 15:10 DC Sodium Bicarbonate (Sodium Bicarbonate) 650 mg TID 02/03/21 14:00 02/12/21 21:43 650 MG Sodium Chloride 1,000 ml @ 400 mls/hr Q2H30M PRN 02/13/21 10:15 02/13/21 22:14 Vancomycin HCl (Vanco Per Pharmacy) 1 each PRN DAILY PRN 02/02/21 08:30 02/13/21 09:34 1 EACH Vancomycin HCl (Vancomycin Random Level) 1 each 1X ONCE 02/03/21 05:00 02/03/21 05:01 DC Vancomycin HCl (Vancomycin Trough Level) 1 each 1X ONCE 02/13/21 05:00 02/13/21 05:01 DC 02/13/21 05:00 1 EACH Vancomycin HCl 500 mg/Sodium Chloride 100 ml @ 100 mls/hr QTUTHSA 02/06/21 16:00 02/10/21 18:42 100 MLS/HR Vancomycin HCl 1 gm/Sodium Chloride 250 ml @ 250 mls/hr 1X ONCE 02/03/21 16:00 02/03/21 16:59 DC 02/03/21 16:55 250 MLS/HR Vasopressin (Vasostrict) 20 unit STK-MED ONCE 02/08/21 11:24 02/08/21 11:24 DC Lab Laboratory Tests Test 02/12/21 14:35 02/12/21 16:41 02/12/21 19:26 02/13/21 06:55 Sodium Level 135 mmol/L (136-145) 134 mmol/L (136-145) Potassium Level 4.1 mmol/L (3.5-5.1) 4.2 mmol/L (3.5-5.1) Chloride Level 100 mmol/L (98-107) 99 mmol/L (98-107) Carbon Dioxide Level 24 mmol/L (21-32) 23 mmol/L (21-32) Anion Gap 11 (6-14) 12 (6-14) Blood Urea Nitrogen 41 mg/dL (7-20) 48 mg/dL (7-20) Creatinine 6.5 mg/dL (0.6-1.0) 7.0 mg/dL (0.6-1.0) Estimated GFR (Cockcroft-Gault) 6.4 5.9 Glucose Level 111 mg/dL (70-99) 72 mg/dL (70-99) Calcium Level 7.6 mg/dL (8.5-10.1) 7.8 mg/dL (8.5-10.1) Glucose (Fingerstick) 104 mg/dL (70-99) 109 mg/dL (70-99) White Blood Count 10.6 x10^3/uL (4.0-11.0) Red Blood Count 3.19 x10^6/uL (3.50-5.40) Hemoglobin 9.9 g/dL (12.0-15.5) Hematocrit 31.1 % (36.0-47.0) Mean Corpuscular Volume 98 fL (79-100) Mean Corpuscular Hemoglobin 31 pg (25-35) Mean Corpuscular Hemoglobin Concent 32 g/dL (31-37) Red Cell Distribution Width 17.3 % (11.5-14.5) Platelet Count 195 x10^3/uL (140-400) Neutrophils (%) (Auto) 87 % (31-73) Lymphocytes (%) (Auto) 6 % (24-48) Monocytes (%) (Auto) 5 % (0-9) Eosinophils (%) (Auto) 1 % (0-3) Basophils (%) (Auto) 0 % (0-3) Neutrophils # (Auto) 9.3 x10^3/uL (1.8-7.7) Lymphocytes # (Auto) 0.7 x10^3/uL (1.0-4.8) Monocytes # (Auto) 0.5 x10^3/uL (0.0-1.1) Eosinophils # (Auto) 0.1 x10^3/uL (0.0-0.7) Basophils # (Auto) 0.0 x10^3/uL (0.0-0.2) Phosphorus Level 6.3 mg/dL (2.6-4.7) Albumin 1.3 g/dL (3.4-5.0) Random Vancomycin Level 23.9 mcg/mL Results All relevant outside records, renal labs, imaging studies, telemetry/EKG's were reviewed. Justicifation of Admission Dx: Justifications for Admission: Justification of Admission Dx: Yes DAVID BOWMAN MD Feb 13, 2021 12:11
--- NOTE | 2021-02-13 12:33 | PDOC ---
[employer] PROGRESS NOTE Date of Service DOS: DATE: 02/13/21 TIME: 12:13 Chief Complaint Chief Complaint Right leg BKA, Post op day 5 End-stage renal disease Diabetes with neuropathy. Protein-calorie malnutrition. Abnormal LFTs. Anemia. History of Present Illness History of Present Illness 02/13 Patient seen and examined at bedside in dialysis unit. Patient pleasant and conversational. Right leg amputated below knee. Discussed case with RN and transition social worker. 02/12/2021 No acute events overnight. Patient was able to wean off her Levophed and her blood pressures have remained stable. No pain at this time. Tolerating breakfast. PT OT ordered and pending. Recommendations for further rehab. Surgical site dressings are clean dry intact. Patient's chart, labs, images we re reviewed and discussed with RN 02/11, better BP off elizabeth cnot support, HD yesteday went well fluid balance OK, looks weak left arm swollen a little today, dependent, she lays on that side, will try to turn to other side 02/10, BP still low, needs HD today, will give 500 mls bolus weaknes, lethargy, right arm swelling is much better 10.15, prior hypotnesion days agoo too, in ICU surg went well, limb was not able to be salvaged, BKA done pt in good spiritis, eating well Ms Ruelas is a 65-year-old female with history of diabetes; hypertension; coronary artery disease; CABG; end-stage renal disease, on dialysis; peripheral vascular disease, who underwent angiogram and angioplasty of the right anterior tibial artery at on 01/16/2021 who presented to the ER with complaints of wounds of the right lower extremity for a couple of weeks. She denies any history of injury. Denies fevers, chills, nausea, vomiting, diarrhea, headache, sore throat, difficulty swallowing, shortness of breath, or cough. 02/07: hypotension after angio, will bolus 1 liter and give fludro, Continue IV abx, ID following, on zosyn. Vasc plans limb salvage surg Overnight no events. She has been noticing some pill esophagitis having to suction to clear her own secretions. Right leg pain has improved. Afebrile. Vitals/I&O Vitals/I&O: Vital Signs Date Time Temp Pulse Resp B/P (MAP) Pulse Ox O2 Delivery O2 Flow Rate FiO2 02/13/21 11:16 100 Room Air 2.0 02/13/21 10:13 80 99/46 02/13/21 09:48 12 02/13/21 07:00 97.7 97.7 I & O 02/12/21 02/12/21 02/13/21 15:00 23:00 07:00 Intake Total 700 ml 200 ml 100 ml Balance 700 ml 200 ml 100 ml Physical Exam Physical Exam: GENERAL: Alert and oriented x 3 female, lying in bed comfortably, in no acute distress. HEENT: Normocephalic, atraumatic and anicteric. No thrush. Oral mucosa moist. NECK: Supple. LUNGS: Clear bilaterally. No wheezing. HEART: S1, S2. No murmurs. ABDOMEN: Soft, nontender, and nondistended. EXTREMITIES: Right BKA BACK: Reveals normal curvature. No CVA tenderness. NEUROLOGIC: Alert and oriented x 3, grossly nonfocal. PSYCHIATRIC: Calm and cooperative. General: Alert, Oriented X3, Cooperative Heart: Regular rate, No murmurs Lungs: Clear Abdomen: Normal bowel sounds, Soft, No tenderness, No masses Extremities: Other (Right lower extremity dressings and boot. Dressings are clean dry and intact.) Skin: No rashes Labs Labs: Laboratory Tests Test 02/12/21 14:35 02/12/21 16:41 02/12/21 19:26 02/13/21 06:55 Sodium Level 135 mmol/L (136-145) 134 mmol/L (136-145) Potassium Level 4.1 mmol/L (3.5-5.1) 4.2 mmol/L (3.5-5.1) Chloride Level 100 mmol/L (98-107) 99 mmol/L (98-107) Carbon Dioxide Level 24 mmol/L (21-32) 23 mmol/L (21-32) Anion Gap 11 (6-14) 12 (6-14) Blood Urea Nitrogen 41 mg/dL (7-20) 48 mg/dL (7-20) Creatinine 6.5 mg/dL (0.6-1.0) 7.0 mg/dL (0.6-1.0) Estimated GFR (Cockcroft-Gault) 6.4 5.9 Glucose Level 111 mg/dL (70-99) 72 mg/dL (70-99) Calcium Level 7.6 mg/dL (8.5-10.1) 7.8 mg/dL (8.5-10.1) Glucose (Fingerstick) 104 mg/dL (70-99) 109 mg/dL (70-99) White Blood Count 10.6 x10^3/uL (4.0-11.0) Red Blood Count 3.19 x10^6/uL (3.50-5.40) Hemoglobin 9.9 g/dL (12.0-15.5) Hematocrit 31.1 % (36.0-47.0) Mean Corpuscular Volume 98 fL (79-100) Mean Corpuscular Hemoglobin 31 pg (25-35) Mean Corpuscular Hemoglobin Concent 32 g/dL (31-37) Red Cell Distribution Width 17.3 % (11.5-14.5) Platelet Count 195 x10^3/uL (140-400) Neutrophils (%) (Auto) 87 % (31-73) Lymphocytes (%) (Auto) 6 % (24-48) Monocytes (%) (Auto) 5 % (0-9) Eosinophils (%) (Auto) 1 % (0-3) Basophils (%) (Auto) 0 % (0-3) Neutrophils # (Auto) 9.3 x10^3/uL (1.8-7.7) Lymphocytes # (Auto) 0.7 x10^3/uL (1.0-4.8) Monocytes # (Auto) 0.5 x10^3/uL (0.0-1.1) Eosinophils # (Auto) 0.1 x10^3/uL (0.0-0.7) Basophils # (Auto) 0.0 x10^3/uL (0.0-0.2) Phosphorus Level 6.3 mg/dL (2.6-4.7) Albumin 1.3 g/dL (3.4-5.0) Random Vancomycin Level 23.9 mcg/mL Review of Systems Review of Systems: ROS negative except as otherwise noted in HPI. Assessment and Plan Assessmemt and Plan Assessment Right leg BKA, Post op day 5 End-stage renal disease Diabetes with neuropathy. Protein-calorie malnutrition. Abnormal LFTs. Anemia. Plan: Post op day 5 right leg BKA,wound care End-stage renal disease, continue hemodialysis per nephrology Diabetes with neuropathy, continue home meds PT/OT Cardiac monitoring DVT prophylaxis FULL CODE D/C disposition pending (HCR?) Comment Review of Relevant I have reviewed the following items mimi (where applicable) has been applied. Medications: Current Medications Medications (Trade) Dose Ordered Sig/Michelle Route PRN Reason Start Time Stop Time Status Last Admin Dose Admin Vancomycin HCl (Vancomycin Trough Level) 1 each 1X ONCE MC 02/13/21 05:00 02/13/21 05:01 DC 02/13/21 05:00 Heparin Sodium/ Sodium Chloride (HEPARIN for ARTERIAL LINE FLUSH) 1,000 unit 1X ONCE IART 02/13/21 09:45 02/13/21 09:52 DC 02/13/21 09:42 Lidocaine HCl (Buffered Lidocaine 1%) 2 ml 1X ONCE IJ 02/13/21 09:45 02/13/21 09:52 DC 02/13/21 09:42 Midazolam HCl (Versed) 1 mg 1X ONCE IV 02/13/21 09:45 02/13/21 09:52 DC 02/13/21 09:44 Fentanyl Citrate (Fentanyl 2ml Vial) 50 mcg 1X ONCE IV 02/13/21 09:45 02/13/21 09:52 DC 02/13/21 09:45 Iodixanol (Visipaque 320) 30 ml 1X ONCE IART 02/13/21 09:45 02/13/21 09:52 DC 02/13/21 09:42 Ondansetron HCl (Zofran) 4 mg 1X ONCE IVP 02/13/21 09:45 02/13/21 09:52 DC 02/13/21 09:43 Justifications for Admission Other Justification AMXI GARCIA III DO Feb 13, 2021 12:33
--- NOTE | 2021-02-13 14:49 | PDOC ---
ERIS RITTER PROCESSING ARCHIVIST 02/13/21 1449: CARDIO Progress Notes Date and Time Date of Service 02/13/21 Time of Evaluation 1210 Subjective Subjective: No Chest Pain, No shortness of breath, No Palpitations Vitals Vitals Vital Signs Date Time Temp Pulse Resp B/P (MAP) Pulse Ox O2 Delivery O2 Flow Rate FiO2 02/13/21 11:16 100 Room Air 2.0 02/13/21 10:13 80 99/46 02/13/21 09:48 12 02/13/21 07:00 97.7 97.7 Weight Weight [ ] Input and Output Intake and Output Intake and Output 02/13/21 07:00 Intake Total 1000 ml Balance 1000 ml Intake Oral 1000 ml Laboratory Labs Laboratory Tests Test 02/12/21 16:41 02/12/21 19:26 02/13/21 06:55 Glucose (Fingerstick) 104 mg/dL (70-99) 109 mg/dL (70-99) White Blood Count 10.6 x10^3/uL (4.0-11.0) Red Blood Count 3.19 x10^6/uL (3.50-5.40) Hemoglobin 9.9 g/dL (12.0-15.5) Hematocrit 31.1 % (36.0-47.0) Mean Corpuscular Volume 98 fL (79-100) Mean Corpuscular Hemoglobin 31 pg (25-35) Mean Corpuscular Hemoglobin Concent 32 g/dL (31-37) Red Cell Distribution Width 17.3 % (11.5-14.5) Platelet Count 195 x10^3/uL (140-400) Neutrophils (%) (Auto) 87 % (31-73) Lymphocytes (%) (Auto) 6 % (24-48) Monocytes (%) (Auto) 5 % (0-9) Eosinophils (%) (Auto) 1 % (0-3) Basophils (%) (Auto) 0 % (0-3) Neutrophils # (Auto) 9.3 x10^3/uL (1.8-7.7) Lymphocytes # (Auto) 0.7 x10^3/uL (1.0-4.8) Monocytes # (Auto) 0.5 x10^3/uL (0.0-1.1) Eosinophils # (Auto) 0.1 x10^3/uL (0.0-0.7) Basophils # (Auto) 0.0 x10^3/uL (0.0-0.2) Sodium Level 134 mmol/L (136-145) Potassium Level 4.2 mmol/L (3.5-5.1) Chloride Level 99 mmol/L (98-107) Carbon Dioxide Level 23 mmol/L (21-32) Anion Gap 12 (6-14) Blood Urea Nitrogen 48 mg/dL (7-20) Creatinine 7.0 mg/dL (0.6-1.0) Estimated GFR (Cockcroft-Gault) 5.9 Glucose Level 72 mg/dL (70-99) Calcium Level 7.8 mg/dL (8.5-10.1) Phosphorus Level 6.3 mg/dL (2.6-4.7) Albumin 1.3 g/dL (3.4-5.0) Random Vancomycin Level 23.9 mcg/mL Microbiology Micro Microbiology 02/01/21 Blood Culture - Final, Complete NO GROWTH AFTER 5 DAYS Review of Systems Constitutional: yes: weakness, alert Eyes: Yes: no symptom reported Pulmonary: Yes no symptom reported Cardiovascular: Yes no symptom reported Gastrointestional: Yes: constipation Genitourinary: Yes: no symptom reported Musculoskeletal: Yes: foot pain Skin: Yes no symptom reported Psychiatric/Neurological: Yes: no symptom reported Endocrine: Yes: no symptom reported Hematologic/Lymphatic: Yes: no symptom reported Physical Exam HEENT: Neck Supple W Full Motion Chest: Symmetric LUNGS: Clear to Auscultation, Other (diminished bases) Heart: RRR (SR), other (3/6 systolic murmur ) Abdomen: Soft N/T Extremities: Other (left BKA. dressing and brace intact, bilateral UE edema ) Neurology: alert, oriented, follow commands, other (dorwsy) Assessment Assessment 1. Arrhythmia; frequent PVCs and PACs. otherwise SR 2. PAD s/p Right SFA SURGERY SCHEDULER 3. Recent gangrene infection of LLE s/p BKA 4. CAD s/p CABG. Follows with Dr. Gayla BOWDEN. Cath 06/17 with 2/3 grafts patent with 100% occlusion of SVG-OM. clinically stable 5. Cardiomyopathy; echo with LVEF 25% with severe global hypokinesis and moderate to severe , appears compensated 6. Hypotension; on Florinef. amlodipine, lisinopril discontinued. BP remains low end. 6. Hyperlipidemia; statin 7. Diabetes, II 8. ESRD on HD. 9. Hypothyroidism; on replacement Recommendations Secondary prevention; ASA, Plavix, statin HF optimization as able. Unable to start BB with baseline HR near 60 or ACEi/ARB with low end blood pressures Fluid offloading via HD Supportive care Justicifation of Admission Dx: Justifications for Admission: Justification of Admission Dx: Yes ANGEL JOHNSON MD 02/13/21 1524: CARDIO Progress Notes Plan Plan The patient was seen and interviewed as well as examined at the bedside. The chart was reviewed. The case was discussed. Agree with the plan of care. Discussed with Dr. Paredes, plan for negative fluid balance. ERIS RITTER APRN Feb 13, 2021 14:49 ANGEL JOHNSON MD Feb 13, 2021 15:24
[2021-02-13 15:00] VITALS: BP 97/54
[2021-02-13] MEDS: FLUDROCORTISONE 0.1 MG TABLET PO SCH (15:13)
[2021-02-13] MEDS: PRAMIPEXOLE 0.25 MG TABLET. PO SCH (15:14)
[2021-02-13] MEDS: SENNOSIDES/DOCUSATE 8.6/50MG TABLET. PO SCH (15:14)
[2021-02-13] MEDS: LACTOBACILLUS RHAMNOSUS GG 1 CAPSULE. PO SCH ×2 (15:14→22:37)
[2021-02-13] MEDS: ANASTROZOLE 1 MG TABLET PO SCH (15:15)
[2021-02-13] MEDS: CLOPIDOGREL BISULFATE 75 MG TABLET PO SCH (15:15)
[2021-02-13] MEDS: ASPIRIN ENTERIC COATED 81 MG TABLET.DR. PO SCH (15:15)
[2021-02-13] MEDS: MULTIVITAMIN with MINERAL TABLET. PO SCH (15:15)
[2021-02-13] MEDS: FERROUS SULFATE 325 MG TABLET. PO SCH (15:15)
[2021-02-13] MEDS: ALLOPURINOL 100 MG TABLET. PO SCH (15:15)
--- NOTE | 2021-02-13 15:34 | NUR ---
Wound/Ostomy Care Wound Type/Assessment: Patient seen per wound care for stage III PU to coccyx. Wound cleansed, assessed, and measured. Wound is reddened with some slough but has areas of irritation to eldon-wound most likely from drainage. Patient states her bottom has been hurting and she has been staying off of it as much as possible. Treatment Recommendations/Plan: Recommendations for xeroform gauze to wound and cover with foam dressing. Change on Friday and Friday. Dressing applied and patient tolerated well. Education provided: Patient educated on dressing changes and PU treatment and management. Offloading surface/device: Patient is currently on a P-500 bed, turn every 2 hours. Patient repositioned to left side using pillows for offloading. Recommended Referrals/Tests: Dressing change instructions left in room. No other wounds noted. Wound care will follow up on 02/20/21. Bed lowered and call light in reach. Discharge Recommendations for dressings: Addendum: 02/13/21 at 1547 by LENORE REYNOSO RN Patient also has yeast to bilateral groins, area cleansed and dried and Nystatin powder applied. Wound care will order Nystatin to be applied.
--- NOTE | 2021-02-13 16:12 | PDOC ---
Provider Note Date of Service: DATE: 02/13/21 TIME: 16:09 Provider Note Provider Note Vascular S: Patient has no complaints today seen in the room with Dr. Chau. Underwent fistulogram yesterday with successful angioplasty of cephalic arch. Underwent dialysis today with left arm fistula access without problems. O: Vital signs stable, afebrile Left upper arm with dialysis dressings in place that are clean and dry and intact. She has a thrill to fistula and minimal pulsatility. Left hand is pink and warm Right BKA incision is clean, dry, intact, there is mild discoloration to incision laterally. A/P: Pt seen with Dr. Chau Status post right BKAdoing well postoperatively, stable surgical standpoint. Continue to keep dressing clean dry and intact, rigid Rooke boot. Continue PT/OT. End-stage renal disease with left upper arm AV fistula status post angioplastyunderwent dialysis today successfully. Okay for discharge from our standpoint once medically stable. Will follow up with us as scheduled. Please call with further vascular questions or concerns. Justicifation of Admission Dx: Justifications for Admission: Justification of Admission Dx: Yes YOMAIRA MARROQUIN Feb 13, 2021 16:12
[2021-02-13 19:45] VITALS: BP 104/48
[2021-02-13] MEDS: LATANOPROST 0.005% OPHTH SOLUTION 2.5ML BOTTLE. OU SCH (22:38)
[2021-02-13] MEDS: NYSTATIN TOPICAL POWDER 15GM BOTTLE. TP SCH (22:38)
[2021-02-13] MEDS: ATORVASTATIN CALCIUM 40 MG TABLET. PO SCH (22:38)
[2021-02-13 23:01] VITALS: BP 98/54
[2021-02-14 03:09] VITALS: BP 104/61
[2021-02-14] MEDS: LEVOTHYROXINE 100 MCG TABLET PO SCH (06:47)
[2021-02-14] MEDS: PANTOPRAZOLE 40 MG TABLET.DR. PO SCH (06:50)
[2021-02-14 07:14] VITALS: BP 94/48
[2021-02-14] MEDS: INSULIN LISPRO 300 UNITS/3 ML VIAL. SQ SCH ×3 (08:00→17:00)
[2021-02-14 08:18] LABS: BASO % 0 % (0-3); EOS # 0.1 x10^3/uL (0.0-0.7); EOS % 1 % (0-3); HEMATOCRIT 31.9 % (36.0-47.0); HEMOGLOBIN 10.1 g/dL (12.0-15.5); LYMPH # 0.6 x10^3/uL (1.0-4.8); LYMPH % 6 % (24-48); MEAN CORPUSCULAR HEMOGLOBIN 31 pg (25-35); MEAN CORPUSCULAR HGB CONC 32 g/dL (31-37); MEAN CORPUSCULAR VOLUME 97 fL (79-100); MONO # 0.5 x10^3/uL (0.0-1.1); MONO % 5 % (0-9); NEUT # 8.3 x10^3/uL (1.8-7.7); NEUT % 87 % (31-73); PLATELET COUNT 197 x10^3/uL (140-400); RED BLOOD COUNT 3.27 x10^6/uL (3.50-5.40); RED CELL DISTRIBUTION WIDTH 17.7 % (11.5-14.5); WHITE BLOOD COUNT 9.5 x10^3/uL (4.0-11.0)
--- NOTE | 2021-02-14 08:51 | PDOC ---
[employer] PROGRESS NOTE Date of Service DOS: DATE: 02/14/21 TIME: 08:48 Chief Complaint Chief Complaint Right leg BKA, Post op day 5 End-stage renal disease Diabetes with neuropathy. Protein-calorie malnutrition. Abnormal LFTs. Anemia. History of Present Illness History of Present Illness 02/14 Patient seen and examined at bedside. Patient hungry and ready to eat breakfast. Chart reviewed. Discussed case with RN and social media campaign manager. 02/13 Patient seen and examined at bedside in dialysis unit. Patient pleasant and conversational. Right leg amputated below knee. Discussed case with RN and social media campaign manager. 02/12/2021 No acute events overnight. Patient was able to wean off her Levophed and her blood pressures have remained stable. No pain at this time. Tolerating breakfast. PT OT ordered and pending. Recommendations for further rehab. Surgical site dressings are clean dry intact. Patient's chart, labs, images were reviewed and discussed with RN 02/11, better BP off elizabeth cnot support, HD yesteday went well fluid balance OK, looks weak left arm swollen a little today, dependent, she lays on that side, will try to turn to other side 02/10, BP still low, needs HD today, will give 500 mls bolus weaknes, lethargy, right arm swelling is much better 10.15, prior hypotnesion days agoo too, in ICU surg went well, limb was not able to be salvaged, BKA done pt in good spiritis, eating well Ms Ruelas is a 65-year-old female with history of diabetes; hypertension; coronary artery disease; CABG; end-stage renal disease, on dialysis; peripheral vascular disease, who underwent angiogram and angioplasty of the right anterior tibial artery at on 01/16/2021 who presented to the ER with complaints of wounds of the right lower extremity for a couple of weeks. She denies any history of injury. Denies fevers, chills, nausea, vomiting, diarrhea, headache, sore throat, difficulty swallowing, shortness of breath, or cough. 02/07: hypotension after angio, will bolus 1 liter and give fludro, Continue IV abx, ID following, on zosyn. Vasc plans limb salvage surg Overnight no events. She has been noticing some pill esophagitis having to suction to clear her own secretions. Right leg pain has improved. Afebrile. Vitals/I&O Vitals/I&O: Vital Signs Date Time Temp Pulse Resp B/P (MAP) Pulse Ox O2 Delivery O2 Flow Rate FiO2 02/14/21 07:14 98.8 102 18 94/48 (63) 99 Room Air 98.8 02/13/21 11:45 2.0 I & O 02/13/21 02/13/21 02/14/21 15:00 23:00 07:00 Intake Total 0 ml 300 ml 100 ml Output Total 0 ml Balance 0 ml 300 ml 100 ml Physical Exam Physical Exam: GENERAL: Alert and oriented x 3 female, lying in bed comfortably, in no acute distress. HEENT: Normocephalic, atraumatic and anicteric. No thrush. Oral mucosa moist. NECK: Supple. LUNGS: Clear bilaterally. No wheezing. HEART: S1, S2. No murmurs. ABDOMEN: Soft, nontender, and nondistended. EXTREMITIES: Right BKA BACK: Reveals normal curvature. No CVA tenderness. NEUROLOGIC: Alert and oriented x 3, grossly nonfocal. PSYCHIATRIC: Calm and cooperative. General: Alert, Oriented X3, Cooperative Heart: Regular rate, No murmurs Lungs: Clear Abdomen: Normal bowel sounds, Soft, No tenderness, No masses Extremities: Other (Right lower extremity dressings and boot. Dressings are clean dry and intact.) Skin: No rashes Labs Labs: Laboratory Tests Test 02/13/21 21:19 02/14/21 06:45 02/14/21 07:22 Glucose (Fingerstick) 85 mg/dL (70-99) 97 mg/dL (70-99) White Blood Count 9.5 x10^3/uL (4.0-11.0) Red Blood Count 3.27 x10^6/uL (3.50-5.40) Hemoglobin 10.1 g/dL (12.0-15.5) Hematocrit 31.9 % (36.0-47.0) Mean Corpuscular Volume 97 fL (79-100) Mean Corpuscular Hemoglobin 31 pg (25-35) Mean Corpuscular Hemoglobin Concent 32 g/dL (31-37) Red Cell Distribution Width 17.7 % (11.5-14.5) Platelet Count 197 x10^3/uL (140-400) Neutrophils (%) (Auto) 87 % (31-73) Lymphocytes (%) (Auto) 6 % (24-48) Monocytes (%) (Auto) 5 % (0-9) Eosinophils (%) (Auto) 1 % (0-3) Basophils (%) (Auto) 0 % (0-3) Neutrophils # (Auto) 8.3 x10^3/uL (1.8-7.7) Lymphocytes # (Auto) 0.6 x10^3/uL (1.0-4.8) Monocytes # (Auto) 0.5 x10^3/uL (0.0-1.1) Eosinophils # (Auto) 0.1 x10^3/uL (0.0-0.7) Basophils # (Auto) 0.0 x10^3/uL (0.0-0.2) Review of Systems Review of Systems: ROS negative except as noted in HPI. Assessment and Plan Assessmemt and Plan Assessment Right leg BKA, Post op day 6 End-stage renal disease Diabetes with neuropathy. Protein-calorie malnutrition. Abnormal LFTs. Anemia. Plan: Post op day 6 right leg BKA,wound care Discontinued antibiotics. End-stage renal disease, continue hemodialysis per nephrology Diabetes with neuropathy, continue home meds PT/OT Cardiac monitoring DVT prophylaxis FULL CODE D/C disposition pending (HCR?) Comment Review of Relevant I have reviewed the following items mimi (where applicable) has been applied. Medications: Current Medications Medications (Trade) Dose Ordered Sig/Michelle Route PRN Reason Start Time Stop Time Status Last Admin Dose Admin Heparin Sodium/ Sodium Chloride (HEPARIN for ARTERIAL LINE FLUSH) 1,000 unit 1X ONCE IART 02/13/21 09:45 02/13/21 09:52 DC 02/13/21 09:42 Lidocaine HCl (Buffered Lidocaine 1%) 2 ml 1X ONCE IJ 02/13/21 09:45 02/13/21 09:52 DC 02/13/21 09:42 Midazolam HCl (Versed) 1 mg 1X ONCE IV 02/13/21 09:45 02/13/21 09:52 DC 02/13/21 09:44 Fentanyl Citrate (Fentanyl 2ml Vial) 50 mcg 1X ONCE IV 02/13/21 09:45 02/13/21 09:52 DC 02/13/21 09:45 Iodixanol (Visipaque 320) 30 ml 1X ONCE IART 02/13/21 09:45 02/13/21 09:52 DC 02/13/21 09:42 Ondansetron HCl (Zofran) 4 mg 1X ONCE IVP 02/13/21 09:45 02/13/21 09:52 DC 02/13/21 09:43 Nystatin (Nystop) 1 pallavi BID TP 02/13/21 21:00 02/13/21 22:38 Justifications for Admission Other Justification MAXI GARCIA III DO Feb 14, 2021 08:51
[2021-02-14] MEDS: NYSTATIN TOPICAL POWDER 15GM BOTTLE. TP SCH ×2 (09:00→21:00)
[2021-02-14 09:22] LABS: CALCIUM 7.9 mg/dL (8.5-10.1); CREATININE 4.2 mg/dL (0.6-1.0); GFR 10.6; POTASSIUM 3.9 mmol/L (3.5-5.1)
[2021-02-14] MEDS: SENNOSIDES/DOCUSATE 8.6/50MG TABLET. PO SCH (09:48)
[2021-02-14] MEDS: SODIUM BICARBONATE 650 MG TABLET. PO SCH ×3 (09:48→21:15)
[2021-02-14] MEDS: MIDODRINE 2.5 MG TABLET PO SCH ×3 (09:48→18:45)
[2021-02-14] MEDS: CALCIUM CARBONATE 500 MG TABLET PO SCH ×2 (09:48→18:45)
[2021-02-14] MEDS: ALLOPURINOL 100 MG TABLET. PO SCH (09:49)
[2021-02-14] MEDS: MULTIVITAMIN with MINERAL TABLET. PO SCH (09:49)
[2021-02-14] MEDS: ASPIRIN ENTERIC COATED 81 MG TABLET.DR. PO SCH (09:49)
[2021-02-14] MEDS: LACTOBACILLUS RHAMNOSUS GG 1 CAPSULE. PO SCH ×2 (09:49→21:15)
[2021-02-14] MEDS: FUROSEMIDE 80 MG TABLET. PO SCH (09:49)
[2021-02-14] MEDS: FERROUS SULFATE 325 MG TABLET. PO SCH (09:49)
[2021-02-14] MEDS: CLOPIDOGREL BISULFATE 75 MG TABLET PO SCH (09:49)
[2021-02-14] MEDS: ANASTROZOLE 1 MG TABLET PO SCH (09:50)
[2021-02-14] MEDS: FLUDROCORTISONE 0.1 MG TABLET PO SCH (09:50)
[2021-02-14] MEDS: PRAMIPEXOLE 0.25 MG TABLET. PO SCH (09:50)
[2021-02-14] MEDS: oxyCODONE/APAP 5/325 1 TAB TABLET PO PRN (09:51)
[2021-02-14 11:02] VITALS: BP 103/57
--- NOTE | 2021-02-14 11:45 | PDOC ---
ERIS RITTER BALLAST CLEANING MACHINE OPERATOR 02/14/21 1145: CARDIO Progress Notes Date and Time Date of Service 02/14/21 Time of Evaluation 1145 Subjective Subjective: No Chest Pain, No shortness of breath, No Palpitations Vitals Vitals Vital Signs Date Time Temp Pulse Resp B/P (MAP) Pulse Ox O2 Delivery O2 Flow Rate FiO2 02/14/21 09:48 102 94/48 02/14/21 07:14 98.8 18 99 Room Air 98.8 02/13/21 11:45 2.0 Weight Weight [ ] Input and Output Intake and Output Intake and Output 02/14/21 07:00 Intake Total 400 ml Output Total 0 ml Balance 400 ml Intake Oral 400 ml Output Urine Total 0 ml # Bowel Movements 1 Laboratory Labs Laboratory Tests Test 02/13/21 21:19 02/14/21 06:40 02/14/21 06:45 02/14/21 07:22 Glucose (Fingerstick) 85 mg/dL (70-99) 97 mg/dL (70-99) Sodium Level 140 mmol/L (136-145) Potassium Level 3.9 mmol/L (3.5-5.1) Chloride Level 102 mmol/L (98-107) Carbon Dioxide Level 28 mmol/L (21-32) Anion Gap 10 (6-14) Blood Urea Nitrogen 21 mg/dL (7-20) Creatinine 4.2 mg/dL (0.6-1.0) Estimated GFR (Cockcroft-Gault) 10.6 Glucose Level 75 mg/dL (70-99) Calcium Level 7.9 mg/dL (8.5-10.1) White Blood Count 9.5 x10^3/uL (4.0-11.0) Red Blood Count 3.27 x10^6/uL (3.50-5.40) Hemoglobin 10.1 g/dL (12.0-15.5) Hematocrit 31.9 % (36.0-47.0) Mean Corpuscular Volume 97 fL (79-100) Mean Corpuscular Hemoglobin 31 pg (25-35) Mean Corpuscular Hemoglobin Concent 32 g/dL (31-37) Red Cell Distribution Width 17.7 % (11.5-14.5) Platelet Count 197 x10^3/uL (140-400) Neutrophils (%) (Auto) 87 % (31-73) Lymphocytes (%) (Auto) 6 % (24-48) Monocytes (%) (Auto) 5 % (0-9) Eosinophils (%) (Auto) 1 % (0-3) Basophils (%) (Auto) 0 % (0-3) Neutrophils # (Auto) 8.3 x10^3/uL (1.8-7.7) Lymphocytes # (Auto) 0.6 x10^3/uL (1.0-4.8) Monocytes # (Auto) 0.5 x10^3/uL (0.0-1.1) Eosinophils # (Auto) 0.1 x10^3/uL (0.0-0.7) Basophils # (Auto) 0.0 x10^3/uL (0.0-0.2) Microbiology Micro Microbiology 02/01/21 Blood Culture - Final, Complete NO GROWTH AFTER 5 DAYS Review of Systems Constitutional: yes: weakness, alert Eyes: Yes: no symptom reported Pulmonary: Yes no symptom reported Cardiovascular: Yes no symptom reported Gastrointestional: Yes: constipation Genitourinary: Yes: no symptom reported Musculoskeletal: Yes: foot pain Skin: Yes no symptom reported Psychiatric/Neurological: Yes: no symptom reported Endocrine: Yes: no symptom reported Hematologic/Lymphatic: Yes: no symptom reported Physical Exam HEENT: Neck Supple W Full Motion Chest: Symmetric LUNGS: Clear to Auscultation, Other (diminished bases) Heart: RRR (SR), other (3/6 systolic murmur ) Abdomen: Soft N/T Extremities: Other (right BKA. incision well approximated. Rook boot intact. ) Neurology: alert, oriented, follow commands, other (dorwsy) Assessment Assessment 1. Arrhythmia; frequent PVCs and PACs. otherwise SR 2. 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 Recent gangrene infection of RLE s/p BKA 4. CAD s/p CABG. Follows with Dr. Gayla BOWDEN. Cath 06/17 with 2/3 grafts patent with 100% occlusion of SVG-OM. clinically stable 5. Cardiomyopathy; echo with LVEF 25% with severe global hypokinesis and moderate to severe , appears compensated 6. Hypotension; on Florinef. BP remains low end. 6. Hyperlipidemia; statin 7. Diabetes, II 8. ESRD on HD. s/p fistulogram with angioplasty of cephalic arch. 9. Hypothyroidism; on replacement Recommendations Secondary prevention; ASA, Plavix, statin HF optimization as able. Unable to start BB or ACEi/ARB with hypotension Fluid offloading via HD Supportive care Follow up with Dr. Shukla upon discharge Justicifation of Admission Dx: Justifications for Admission: Justification of Admission Dx: Yes ANGEL JOHNSON MD 02/14/21 1853: CARDIO Progress Notes Plan Plan The patient was seen and interviewed as well as examined at the bedside. The chart was reviewed. The case was discussed. Agree with the plan of care. ERIS RITTER APRN Feb 14, 2021 11:45 AGNEL JOHNSON MD Feb 14, 2021 18:53
--- NOTE | 2021-02-14 12:35 | PDOC ---
DATE OF SERVICE DATE: 02/14/21 TIME: 12:34 SUBJECTIVE ROS No complaints . stable OBJECTIVE Vital Signs Vital Signs Date Time Temp Pulse Resp B/P (MAP) Pulse Ox O2 Delivery O2 Flow Rate FiO2 02/14/21 09:48 102 94/48 02/14/21 07:14 98.8 18 99 Room Air 98.8 02/13/21 11:45 2.0 I & 0 Intake and Output 02/14/21 07:00 Intake Total 400 ml Output Total 0 ml Balance 400 ml Intake Oral 400 ml Output Urine Total 0 ml # Bowel Movements 1 PHYSICAL EXAM Physical Exam ENERAL: no acute distress. HEENT: Normocephalic, atraumatic and anicteric. Oral mucosa moist. NECK: Supple. LUNGS: Clear bilaterally. Non labored HEART: S1, S2. No murmurs. ABDOMEN: Soft, nontender, and nondistended. EXTRM: Lt AVF , No Bruit/Thrill today (02/12/21) ; Rt BKA NEURO: Alert and oriented x 3, grossly nonfocal. DIAGNOSIS/ASSESSMENT Assessment & Plan ESRD on HD TTS @ [facility] ,no indication for dialysis today Access AVF - No bruit Thrill noted on 02/12 . S/p Fistulogram 02/13- H igh-grade cephalic arch stenosis successfully treated with balloon angioplasty. Recently started on PD as well but had to switch to HD 2/2 Fluid retention . PD catheter flushed on 02/13 . Avoid PICC /Mid line Anemia - Continue ANNIA Gangrene right 5th toe/lateral foot and right heel - S/P Ray amputation of the right fifth toe including the metatarsal head. Rt BKA 02/08 -. Post procedure hypotensive - in ICU since HTN - Hypotensive since BKA requiring pressor support . Resolved DM per primary COMMENT/RELEVANT DATA Meds Current Medications Medications (Trade) Dose Ordered Sig/Michelle Start Time Stop Time Status Last Admin Dose Admin Acetaminophen (Tylenol) 650 mg PRN Q6HRS PRN 02/03/21 13:30 Albumin Human 100 ml @ 100 mls/hr 1X PRN PRN 02/10/21 15:00 02/10/21 15:25 100 MLS/HR Allopurinol (Zyloprim) 100 mg DAILY 02/03/21 14:00 02/14/21 09:49 100 MG Amlodipine Besylate (Norvasc) 5 mg DAILY 02/03/21 14:00 02/12/21 15:35 DC 02/12/21 08:24 5 MG Anastrozole (Arimidex) 1 mg DAILY 02/03/21 14:00 02/14/21 09:50 1 MG Aspirin (Ecotrin) 81 mg DAILY 02/04/21 09:00 02/14/21 09:49 81 MG Atorvastatin Calcium (Lipitor) 80 mg HS 02/03/21 21:00 02/13/21 22:38 80 MG Calcium Carbonate/ Glycine (Oscal) 750 mg BIDWMEALS 02/03/21 17:00 02/14/21 09:48 750 MG Cefazolin Sodium 1 gm/Sodium Chloride 500 ml @ 500 mls/hr 1X ONCE 02/08/21 06:00 02/08/21 06:59 DC 02/08/21 12:35 Cefepime HCl (Maxipime) 3 gm QSA 02/10/21 16:00 02/13/21 14:19 DC 02/10/21 18:38 3 GM Clopidogrel Bisulfate (Plavix) 75 mg DAILY 02/04/21 09:00 02/14/21 09:49 75 MG Desflurane (Suprane) 30 ml STK-MED ONCE 02/02/21 15:09 02/02/21 15:10 DC Dexamethasone Sodium Phosphate (Decadron) 4 mg STK-MED ONCE 02/02/21 15:09 02/02/21 15:09 DC Dextrose (Dextrose 50%-Water Syringe) 12.5 gm PRN Q15MIN PRN 02/09/21 18:45 Ephedrine Sulfate (ePHEDrine PF IN SALINE SYRINGE) 50 mg STK-MED ONCE 02/02/21 15:00 02/02/21 15:00 DC Epoetin Galileo-epbx (RETACRIT for ESRD PTS) 10,000 unit MoWeFr@2100 02/02/21 21:00 02/12/21 21:47 10,000 UNIT Fentanyl Citrate (Fentanyl 2ml Vial) 50 mcg 1X ONCE 02/13/21 09:45 02/13/21 09:52 DC 02/13/21 09:45 50 MCG Ferrous Sulfate (Feosol) 325 mg [id number] 02/03/21 14:00 02/14/21 09:49 325 MG Fludrocortisone Acetate (Florinef) 0.1 mg DAILY 02/07/21 13:30 02/14/21 09:50 0.1 MG Furosemide (Lasix) 80 mg DAILY 02/03/21 14:00 02/14/21 09:49 80 MG Heparin Sodium (Porcine) (Heparin Sodium) 10,000 unit STK-MED ONCE 02/13/21 08:57 02/13/21 08:57 DC Heparin Sodium/ Sodium Chloride (HEPARIN for ARTERIAL LINE FLUSH) 1,000 unit 1X ONCE 02/13/21 09:45 02/13/21 09:52 DC 02/13/21 09:42 1,000 UNIT Hydromorphone HCl (Dilaudid) 0.5 mg PRN Q10MIN PRN 02/08/21 06:00 02/09/21 05:59 DC Info (CONTRAST GIVEN -- Rx MONITORING) 1 each PRN DAILY PRN 02/07/21 08:45 02/09/21 08:44 DC Info (PHARMACY MONITORING -- do not chart) 1 each PRN DAILY PRN 02/13/21 10:15 UNV Insulin Glargine (Lantus Syringe) 10 unit QHS 02/03/21 21:00 02/06/21 07:54 DC 02/04/21 22:36 10 UNIT Insulin Human Lispro (HumaLOG) 0-7 UNITS TIDWMEALS 02/10/21 08:00 02/10/21 18:41 3 UNITS Insulin Human Regular (HumuLIN R VIAL) 100 unit TIDAC 02/03/21 16:30 02/03/21 13:32 DC Iodixanol (Visipaque 320) 30 ml 1X ONCE 02/13/21 09:45 02/13/21 09:52 DC 02/13/21 09:42 30 ML Lactobacillus Rhamnosus (Culturelle) 1 cap BID 02/05/21 12:00 02/14/21 09:49 1 CAP Latanoprost (Xalatan) 1 drop QHS 02/03/21 21:00 02/13/21 22:38 1 DROP Levothyroxine Sodium (Synthroid) 200 mcg DAILY06 02/03/21 14:00 02/14/21 06:47 200 MCG Lidocaine HCl (Buffered Lidocaine 1%) 2 ml 1X ONCE 02/13/21 09:45 02/13/21 09:52 DC 02/13/21 09:42 2 ML Lidocaine HCl (Lidocaine 1% 20ml Vial) 20 ml 1X ONCE 02/07/21 08:30 02/07/21 08:31 DC 02/07/21 09:25 16 ML Lidocaine HCl (Lidocaine Pf 2% Vial) 5 ml STK-MED ONCE 02/08/21 09:37 02/08/21 09:37 DC Lidocaine/ Prilocaine (Emla) 1 pallavi 1X PRN ONCE 02/10/21 09:15 02/10/21 09:33 DC 02/10/21 14:11 1 PALLAVI Lisinopril (Prinivil) 20 mg DAILY 02/03/21 14:00 02/12/21 15:35 DC 02/12/21 08:23 20 MG Methocarbamol (Robaxin) 500 mg PRN Q8HRS PRN 02/03/21 13:30 02/06/21 07:54 DC Midazolam HCl (Versed) 1 mg 1X ONCE 02/13/21 09:45 02/13/21 09:52 DC 02/13/21 09:44 1 MG Midodrine (Proamatine) 5 mg PRN DAILY PRN 02/06/21 08:15 02/09/21 06:45 5 MG Morphine Sulfate (Morphine Sulfate) 1 mg PRN Q10MIN PRN 02/08/21 06:00 02/09/21 05:59 DC Multivitamins (Thera M Plus) 1 tab DAILY 02/07/21 14:00 02/14/21 09:49 1 TAB Nitroglycerin (Nitroglycerin) 200 mcg STK-MED ONCE 02/07/21 08:44 02/07/21 08:44 DC Non-Formulary Medication (Amlodipine Besylate/ Benazepril (Amlodipine-Benazepril 5-20 Mg)) 1 cap DAILY 02/04/21 09:00 UNV Non-Formulary Medication (Omeprazole Magnesium (Prilosec Otc)) 1 tab DAILY 02/04/21 09:00 UNV Non-Formulary Medication (Pregabalin (Lyrica)) 150 mg Q3DAYS 02/06/21 09:00 UNV Norepinephrine Bitartrate 8 mg/ Dextrose 258 ml @ 20.472 mls/ hr CONT PRN 02/09/21 03:15 02/12/21 09:51 DC 02/10/21 02:46 20.472 MLS/HR Nystatin (Nystop) 1 pallavi BID 02/13/21 21:00 02/14/21 09:00 1 PALLAVI Ondansetron HCl (Zofran Odt) 4 mg Q6HRS PRN 02/03/21 13:45 02/11/21 07:49 4 MG Ondansetron HCl (Zofran) 4 mg 1X ONCE 02/13/21 09:45 02/13/21 09:52 DC 02/13/21 09:43 4 MG Oxycodone HCl (Roxicodone) 5 mg PRN Q6HRS PRN 02/03/21 14:15 UNV Oxycodone/ Acetaminophen (Percocet 5/325) 2 tab PRN Q4HRS PRN 02/07/21 11:45 02/13/21 11:16 2 TAB Pantoprazole Sodium (Protonix) 40 mg DAILYAC 02/03/21 14:00 02/14/21 06:50 40 MG Phenylephrine HCl (Elvis-Synephrine Inj) 10 mg STK-MED ONCE 02/08/21 10:14 02/08/21 10:14 DC Phenylephrine HCl (PHENYLEPHRINE in 0.9% NACL PF) 1 mg STK-MED ONCE 02/08/21 09:37 02/08/21 09:37 DC Phenylephrine HCl 50 mg/Sodium Chloride 255 ml @ 16.187 mls/ hr CONT PRN 02/10/21 14:30 Cancel Piperacillin Sod/ Tazobactam Sod 2.25 gm/Sodium Chloride 50 ml @ 100 mls/hr Q8HRS 02/02/21 09:00 02/05/21 15:15 DC 02/05/21 05:53 100 MLS/HR Piperacillin Sod/ Tazobactam Sod 4.5 gm/Sodium Chloride 100 ml @ 200 mls/hr 1X ONCE 02/01/21 17:45 02/01/21 18:14 DC 02/01/21 18:10 200 MLS/HR Polyethylene Glycol (miraLAX PACKET) 17 gm PRN DAILY PRN 02/03/21 13:30 02/11/21 02:43 17 GM Pramipexole Dihydrochloride (miraPEX) 0.25 mg DAILY 02/04/21 09:00 UNV Prochlorperazine Edisylate (Compazine) 5 mg PACU PRN PRN 02/08/21 06:00 02/09/21 05:59 DC Propofol (Diprivan) 200 mg STK-MED ONCE 02/08/21 09:37 02/08/21 09:37 DC Protamine Sulfate (Protamine) 50 mg 1X ONCE 02/07/21 11:15 02/07/21 11:17 DC 02/07/21 11:12 50 MG Ringer's Solution 1,000 ml @ 30 mls/hr Q24H 02/08/21 06:00 02/08/21 17:59 DC Senna/Docusate Sodium (Senna Plus) 1 tab DAILY 02/03/21 14:00 02/14/21 09:48 1 TAB Sennosides (Senna) 8.6 mg PRN BID PRN 02/03/21 13:30 02/03/21 15:58 8.6 MG Sevoflurane (Ultane) 30 ml STK-MED ONCE 02/02/21 15:09 02/02/21 15:10 DC Sodium Bicarbonate (Sodium Bicarbonate) 650 mg TID 02/03/21 14:00 02/14/21 09:48 650 MG Sodium Chloride 1,000 ml @ 400 mls/hr Q2H30M PRN 02/13/21 10:15 02/13/21 22:14 DC Vancomycin HCl (Vanco Per Pharmacy) 1 each PRN DAILY PRN 02/02/21 08:30 02/13/21 14:19 DC 02/13/21 09:34 1 EACH Vancomycin HCl (Vancomycin Random Level) 1 each 1X ONCE 02/03/21 05:00 02/03/21 05:01 DC Vancomycin HCl (Vancomycin Trough Level) 1 each 1X ONCE 02/13/21 05:00 02/13/21 05:01 DC 02/13/21 05:00 1 EACH Vancomycin HCl 500 mg/Sodium Chloride 100 ml @ 100 mls/hr QTUTHSA 02/06/21 16:00 02/13/21 14:19 DC 02/10/21 18:42 100 MLS/HR Vancomycin HCl 1 gm/Sodium Chloride 250 ml @ 250 mls/hr 1X ONCE 02/03/21 16:00 02/03/21 16:59 DC 02/03/21 16:55 250 MLS/HR Vasopressin (Vasostrict) 20 unit STK-MED ONCE 02/08/21 11:24 02/08/21 11:24 DC Lab Laboratory Tests Test 02/13/21 21:19 02/14/21 06:40 02/14/21 06:45 02/14/21 07:22 Glucose (Fingerstick) 85 mg/dL (70-99) 97 mg/dL (70-99) Sodium Level 140 mmol/L (136-145) Potassium Level 3.9 mmol/L (3.5-5.1) Chloride Level 102 mmol/L (98-107) Carbon Dioxide Level 28 mmol/L (21-32) Anion Gap 10 (6-14) Blood Urea Nitrogen 21 mg/dL (7-20) Creatinine 4.2 mg/dL (0.6-1.0) Estimated GFR (Cockcroft-Gault) 10.6 Glucose Level 75 mg/dL (70-99) Calcium Level 7.9 mg/dL (8.5-10.1) White Blood Count 9.5 x10^3/uL (4.0-11.0) Red Blood Count 3.27 x10^6/uL (3.50-5.40) Hemoglobin 10.1 g/dL (12.0-15.5) Hematocrit 31.9 % (36.0-47.0) Mean Corpuscular Volume 97 fL (79-100) Mean Corpuscular Hemoglobin 31 pg (25-35) Mean Corpuscular Hemoglobin Concent 32 g/dL (31-37) Red Cell Distribution Width 17.7 % (11.5-14.5) Platelet Count 197 x10^3/uL (140-400) Neutrophils (%) (Auto) 87 % (31-73) Lymphocytes (%) (Auto) 6 % (24-48) Monocytes (%) (Auto) 5 % (0-9) Eosinophils (%) (Auto) 1 % (0-3) Basophils (%) (Auto) 0 % (0-3) Neutrophils # (Auto) 8.3 x10^3/uL (1.8-7.7) Lymphocytes # (Auto) 0.6 x10^3/uL (1.0-4.8) Monocytes # (Auto) 0.5 x10^3/uL (0.0-1.1) Eosinophils # (Auto) 0.1 x10^3/uL (0.0-0.7) Basophils # (Auto) 0.0 x10^3/uL (0.0-0.2) Test 02/14/21 11:45 Glucose (Fingerstick) 90 mg/dL (70-99) Results All relevant outside records, renal labs, imaging studies, telemetry/EKG's were reviewed. Justicifation of Admission Dx: Justifications for Admission: Justification of Admission Dx: Yes DAVID BOWMAN MD Feb 14, 2021 12:35
--- NOTE | 2021-02-14 13:46 | NUR ---
SS following up with discharge planning. SS reviewed pt chart and discussed with pt RN. Pt is currently on room air. COVID19 negative. PT/OT recommended fci unit. Wound care following. Pt has outpatient hemodialysis set up at [facility] on , Friday, , and Friday at 0630. SS met with pt and family in room to discuss discharge planning and fci unit. Pt and family requesting to go to [facility], ; fax [phone]. SS phoned and faxed referral as requested. SS will continue to follow for discharge planning. Addendum: 02/14/21 at 1451 by YURI PETERSON Pt accepted at [facility].
[2021-02-14 15:03] VITALS: BP 118/53
[2021-02-14 19:25] VITALS: BP 99/55
[2021-02-14] MEDS: ATORVASTATIN CALCIUM 40 MG TABLET. PO SCH (21:15)
[2021-02-14] MEDS: LATANOPROST 0.005% OPHTH SOLUTION 2.5ML BOTTLE. OU SCH (21:16)
[2021-02-14] MEDS: EPOETIN ALFA-EPBX for ESRD 20,000 UNIT/ML VIAL. SQ SCH (21:31)
[2021-02-14 22:41] VITALS: BP 86/47
[2021-02-15 02:28] VITALS: BP 87/51
[2021-02-15] MEDS: LEVOTHYROXINE 100 MCG TABLET PO SCH (06:38)
[2021-02-15] MEDS ORDERED: IV NORMAL SALINE 1000ML BAG 1,000 ML IV PRN ×2 (06:45)
[2021-02-15] MEDS ORDERED: DIALYSIS PATIENT. MC PRN (06:45)
[2021-02-15] MEDS: PANTOPRAZOLE 40 MG TABLET.DR. PO SCH (07:30)
[2021-02-15] MEDS: INSULIN LISPRO 300 UNITS/3 ML VIAL. SQ SCH ×2 (07:40→12:00)
[2021-02-15] MEDS: MIDODRINE 2.5 MG TABLET PO SCH ×2 (07:43→14:20)
[2021-02-15] MEDS: LACTOBACILLUS RHAMNOSUS GG 1 CAPSULE. PO SCH (07:45)
[2021-02-15] MEDS: SODIUM BICARBONATE 650 MG TABLET. PO SCH (07:50)
[2021-02-15] MEDS: CALCIUM CARBONATE 500 MG TABLET PO SCH (08:00)
[2021-02-15] MEDS: FERROUS SULFATE 325 MG TABLET. PO SCH (08:00)
[2021-02-15 08:06] LABS: BASO # 0.1 x10^3/uL (0.0-0.2); BASO % 1 % (0-3); EOS # 0.1 x10^3/uL (0.0-0.7); EOS % 1 % (0-3); HEMATOCRIT 31.5 % (36.0-47.0); HEMOGLOBIN 9.7 g/dL (12.0-15.5); LYMPH # 0.7 x10^3/uL (1.0-4.8); LYMPH % 7 % (24-48); MEAN CORPUSCULAR HEMOGLOBIN 30 pg (25-35); MEAN CORPUSCULAR HGB CONC 31 g/dL (31-37); MEAN CORPUSCULAR VOLUME 98 fL (79-100); MONO # 0.5 x10^3/uL (0.0-1.1); MONO % 6 % (0-9); NEUT # 7.9 x10^3/uL (1.8-7.7); NEUT % 85 % (31-73); PLATELET COUNT 200 x10^3/uL (140-400); RED BLOOD COUNT 3.21 x10^6/uL (3.50-5.40); RED CELL DISTRIBUTION WIDTH 18.2 % (11.5-14.5); WHITE BLOOD COUNT 9.3 x10^3/uL (4.0-11.0)
[2021-02-15 08:30] LABS: CALCIUM 8.3 mg/dL (8.5-10.1); GFR 8.7; POTASSIUM 4.2 mmol/L (3.5-5.1)
[2021-02-15] MEDS: NYSTATIN TOPICAL POWDER 15GM BOTTLE. TP SCH (09:00)
[2021-02-15] MEDS: MULTIVITAMIN with MINERAL TABLET. PO SCH (09:00)
--- NOTE | 2021-02-15 11:15 | PDOC ---
[employer] PROGRESS NOTE Date of Service DOS: DATE: 02/15/21 TIME: 11:11 Chief Complaint Chief Complaint Right leg BKA, Post op day 7 End-stage renal disease Diabetes with neuropathy. Protein-calorie malnutrition. Abnormal LFTs. Anemia. History of Present Illness History of Present Illness 02/15 Patient seen and examined at bedside in dialysis unit. Patient pleasant and conversational. Chart reviewed. Discussed case with RN and drug abuse social worker. 02/14 Patient seen and examined at bedside. Patient hungry and ready to eat breakfast. Chart reviewed. Discussed case with RN and drug abuse social worker. 02/13 Patient seen and examined at bedside in dialysis unit. Patient pleasant and conversational. Right leg amputated below knee. Discussed case with RN and drug abuse social worker. 02/12/2021 No acute events overnight. Patient was able to wean off her Levophed and her blood pressures have remained stable. No pain at this time. Tolerating breakfast. PT OT ordered and pending. Recommendations for further rehab. Surgical site dressings are clean dry intact. Patient's chart, labs, images were reviewed and discussed with RN 02/11, better BP off elizabeth cnot support, HD yesteday went well fluid balance OK, looks weak left arm swollen a little today, dependent, she lays on that side, will try to turn to other side 02/10, BP still low, needs HD today, will give 500 mls bolus weaknes, lethargy, right arm swelling is much better 10.15, prior hypotnesion days agoo too, in ICU surg went well, limb was not able to be salvaged, BKA done pt in good spiritis, eating well Ms Ruelas is a 65-year-old female with history of diabetes; hypertension; coronary artery disease; CABG; end-stage renal disease, on dialysis; peripheral vascular disease, who underwent angiogram and angioplasty of the right anterior tibial artery at on 01/16/2021 who presented to the ER with complaints of wounds of the right lower extremity for a couple of weeks. She denies any history of injury. Denies fevers, chills, nausea, vomiting, diarrhea, headache, sore throat, difficulty swallowing, shortness of breath, or cough. 02/07: hypotension after angio, will bolus 1 liter and give fludro, Continue IV abx, ID following, on zosyn. Vasc plans limb salvage surg Overnight no events. She has been noticing some pill esophagitis having to suction to clear her own secretions. Right leg pain has improved. Afebrile. Vitals/I&O Vitals/I&O: Vital Signs Date Time Temp Pulse Resp B/P (MAP) Pulse Ox O2 Delivery O2 Flow Rate FiO2 02/15/21 02:28 98.4 73 18 87/51 (63) 99 Room Air 98.4 I & O 02/14/21 02/14/21 02/15/21 15:00 23:00 07:00 Intake Total 180 ml 240 ml 100 ml Output Total 0 ml Balance 180 ml 240 ml 100 ml Physical Exam Physical Exam: GENERAL: Alert and oriented x 3 female, lying in bed comfortably, in no acute distress. HEENT: Normocephalic, atraumatic and anicteric. No thrush. Oral mucosa moist. NECK: Supple. LUNGS: Clear bilaterally. No wheezing. HEART: S1, S2. No murmurs. ABDOMEN: Soft, nontender, and nondistended. EXTREMITIES: Right BKA BACK: Reveals normal curvature. No CVA tenderness. NEUROLOGIC: Alert and oriented x 3, grossly nonfocal. PSYCHIATRIC: Calm and cooperative. General: Alert, Oriented X3, Cooperative Heart: Regular rate, No murmurs Lungs: Clear Abdomen: Normal bowel sounds, Soft, No tenderness, No masses Extremities: Other (Right lower extremity dressings and boot. Dressings are clean dry and intact.) Skin: No rashes Labs Labs: Laboratory Tests Test 02/14/21 11:45 02/14/21 16:33 02/14/21 20:23 02/15/21 06:20 Glucose (Fingerstick) 90 mg/dL (70-99) 152 mg/dL (70-99) 104 mg/dL (70-99) White Blood Count 9.3 x10^3/uL (4.0-11.0) Red Blood Count 3.21 x10^6/uL (3.50-5.40) Hemoglobin 9.7 g/dL (12.0-15.5) Hematocrit 31.5 % (36.0-47.0) Mean Corpuscular Volume 98 fL (79-100) Mean Corpuscular Hemoglobin 30 pg (25-35) Mean Corpuscular Hemoglobin Concent 31 g/dL (31-37) Red Cell Distribution Width 18.2 % (11.5-14.5) Platelet Count 200 x10^3/uL (140-400) Neutrophils (%) (Auto) 85 % (31-73) Lymphocytes (%) (Auto) 7 % (24-48) Monocytes (%) (Auto) 6 % (0-9) Eosinophils (%) (Auto) 1 % (0-3) Basophils (%) (Auto) 1 % (0-3) Neutrophils # (Auto) 7.9 x10^3/uL (1.8-7.7) Lymphocytes # (Auto) 0.7 x10^3/uL (1.0-4.8) Monocytes # (Auto) 0.5 x10^3/uL (0.0-1.1) Eosinophils # (Auto) 0.1 x10^3/uL (0.0-0.7) Basophils # (Auto) 0.1 x10^3/uL (0.0-0.2) Sodium Level 139 mmol/L (136-145) Potassium Level 4.2 mmol/L (3.5-5.1) Chloride Level 101 mmol/L (98-107) Carbon Dioxide Level 26 mmol/L (21-32) Anion Gap 12 (6-14) Blood Urea Nitrogen 26 mg/dL (7-20) Creatinine 5.0 mg/dL (0.6-1.0) Estimated GFR (Cockcroft-Gault) 8.7 Glucose Level 95 mg/dL (70-99) Calcium Level 8.3 mg/dL (8.5-10.1) Review of Systems Review of Systems: ROS negative except as noted in HPI. Assessment and Plan Assessmemt and Plan Assessment Right leg BKA, Post op day 7 End-stage renal disease Diabetes with neuropathy. Protein-calorie malnutrition. Abnormal LFTs. Anemia. Plan: Post op day 7 right leg BKA, wound care End-stage renal disease, continue hemodialysis per nephrology Diabetes with neuropathy, continue home meds PT/OT Cardiac monitoring DVT prophylaxis FULL CODE D/C to SNU later today Comment Review of Relevant I have reviewed the following items mimi (where applicable) has been applied. Justifications for Admission Other Justification MAXI GARCIA III DO Feb 15, 2021 11:15
--- NOTE | 2021-02-15 11:20 | SNU/HH DC ---
DISCHARGE ORDERS DISCHARGE INFORMATION: FINAL DIAGNOSIS Problems Medical Problems: (1) End stage kidney disease Status: Acute (2) Leukocytosis Status: Acute (3) Right foot infection Status: Acute CONDITION ON DISCHARGE: Stable CODE STATUS: Code Status: Full LONG TERM: SNF STAY <30 DAYS: Yes HOSPICE: HOSPICE: No HOSPICE EVAL & TREAT: No LTAC: ADMIT TO LTAC: No POST DISCHARGE ORDERS: ACTIVITY ORDERS: Activity as tolerated WEIGHT BEARING STATUS: Non weight bearing DIET AFTER DISCHARGE: ADA CHECKS AFTER DISCHARGE: COMMENTS: upper arm TREATMENT/EQUIPMENT ORDERS: Physical Therapy For: Evalulation/Treatment Occupational Therapy For: Evaluation/Treatment DISCHARGE MEDICATIONS: Home Meds Active Scripts Ferrous Sulfate (FEOSOL) 325 Mg Tablet, 325 MG PO DAILYWBKFT for anemia for 30 Days, #30 TAB 2 Refills Prov:Nicolás HAMM MD 08/17/18 Reported Medications Furosemide (LASIX) 80 Mg Tablet, 1 TAB PO DAILY for edema for 30 Days, #30 TAB 0 Refills 02/02/21 Insulin Lispro (HUMALOG) 100 Unit/1 Ml Vial, 100 UNIT SQ TIDAC for dm, EACH 02/02/21 Travoprost (TRAVATAN Z) 5 Ml Drops, 1 DROP EACHEYE DAILY for histonic med, #2.5 ML 2 Refills 02/02/21 Ondansetron Hcl (ZOFRAN) 4 Mg Tablet, 1 TAB PO Q6HRS for nausea, #20 TAB 02/02/21 Sennosides/Docusate Sodium (Senna-Docusate Sodium Tablet) 1 Each Tablet, 1 TAB PO DAILY for constipation for 20 Days, #20 TAB 0 Refills 02/02/21 B,C/Folic/Zinc/Selenometh/D3/E (Renaplex-D Tablet) 1 Each Tablet, 1 EACH PO DAILY for supplement, TAB 02/02/21 Clopidogrel Bisulfate (CLOPIDOGREL) 75 Mg Tablet, 1 TAB PO DAILY for PPX, #90 TAB 1 Refill 02/02/21 Pantoprazole Sodium (PROTONIX ) 40 Mg Tablet.dr, 40 MG PO DAILYAC for GERD, TAB 02/02/21 Oxycodone Hcl (OXYCODONE HCL) 5 Mg Capsule, 5 MG PO PRN Q6HRS PRN for PAIN, TAB 0 Refills 02/02/21 Pramipexole Di-Hcl (MIRAPEX) 0.25 Mg Tablet, 0.5 MG PO DAILY for parkinsons, TAB 02/02/21 Polyethylene Glycol 3350 (MIRALAX) 17 Gm Powd.pack, 1 PACKET PO DAILY PRN for CONSTIPATION for 2 Days, #2 PACKET 0 Refills dissolve in water 02/02/21 Midodrine Hcl (MIDODRINE HCL) 2.5 Mg Tablet, 2.5 MG PO TID for BP, TAB 02/02/21 Methocarbamol (METHOCARBAMOL) 500 Mg Tablet, 500 MG PO PRN Q8HRS for muscle cramps, TAB 02/02/21 Cholecalciferol (Vitamin D3) (D3-50) 50,000 Unit Capsule, 1000 UNIT PO DAILY for supplement, CAP 02/02/21 Calcium Carbonate (CALCIUM CARBONATE) 500 Mg Tablet, 750 MG PO BID for supplement, TAB 02/02/21 Calcium Acetate (CALCIUM ACETATE) 667 Mg Tablet, 2 TAB PO DAILY for esrd for 30 Days, #60 TAB 0 Refills 02/02/21 Anastrozole (ARIMIDEX) 1 Mg Tablet, 1 TAB PO DAILY for malignant neoplasmof breast for 30 Days, #30 TAB 0 Refills 02/02/21 Allopurinol (ALLOPURINOL) 100 Mg Tablet, 1 TAB PO DAILY for gout, #30 TAB 5 Refills 02/02/21 Acetaminophen (ACETAMINOPHEN) 325 Mg Tablet, 2 TAB PO PRN Q6HRS PRN for pain or fever for 30 Days, #30 TAB 0 Refills 02/02/21 Omeprazole Magnesium (PRILOSEC OTC) 20 Mg Tablet.dr, 1 TAB PO DAILY for GI BLEED\GERD, #30 TAB 3 Refills 11/04/18 Calcium Carbonate/Vitamin D3 (CALCIUM 500 + D TABLET) 1 Each Tablet, 1 EACH PO DAILY for VITAMIN , TAB 09/07/18 Levothyroxine Sodium (LEVOTHYROXINE SODIUM) 200 Mcg Tablet, 200 MCG PO DAILYAC for THYROID SUPPLEMENT, #30 TAB 0 Refills 08/05/18 Insulin Degludec (Tresiba Flextouch U-200) 200 Unit/1 Ml Insuln.pen, 10 UNIT SQ HS for hyperglycemia, EACH 08/05/18 Pregabalin (LYRICA) 150 Mg Capsule, 150 MG PO Q3DAYS for peripheral neuropathy for 30 Days, #30 CAP 08/05/18 Amlodipine Besylate/Benazepril (AMLODIPINE-BENAZEPRIL 5-20 MG) 1 Each Capsule, 1 CAP PO DAILY for hypertension, #90 CAP 3 Refills 08/05/18 Sodium Bicarbonate (SODIUM BICARBONATE) 650 Mg Tablet, 650 MG PO TID for supplement, TAB 12/03/17 Pramipexole Di-Hcl (MIRAPEX) 0.25 Mg Tablet, 1 TAB PO DAILY for dopamine agonist, #90 TAB 1 Refill 05/17/16 Aspirin (ASPIR 81) 81 Mg Tablet.dr, 81 MG PO, TAB 12/26/14 Atorvastatin Calcium (ATORVASTATIN CALCIUM) 40 Mg Tablet, 80 MG PO HS for high cholesterol, #30 TAB 0 Refills 12/26/14 MAXI GARCIA III DO Feb 15, 2021 11:20
--- NOTE | 2021-02-15 11:30 | NUR ---
SS following up with discharge planning. SS reviewed pt chart and discussed with pt RN. Pt is currently on room air. PT/OT recommended care home unit. Hemodialysis today. COVID19 negative. Pt accepted at [facility], ; fax [phone]. Discharge orders received and phoned and faxed to [facility]. Pt will discharge today and go to [facility] at 1500. [facility] to provide transportation. Pt, pt's RN, and pt's family notified.
--- NOTE | 2021-02-15 11:52 | PDOC ---
DATE OF SERVICE DATE: 02/15/21 TIME: 11:51 SUBJECTIVE ROS No complaints on dialysis . stable OBJECTIVE Vital Signs Vital Signs Date Time Temp Pulse Resp B/P (MAP) Pulse Ox O2 Delivery O2 Flow Rate FiO2 02/15/21 08:00 Room Air 02/15/21 02:28 98.4 73 18 87/51 (63) 99 98.4 I & 0 Intake and Output 02/15/21 07:00 Intake Total 520 ml Output Total 0 ml Balance 520 ml Intake Oral 520 ml Output Urine Total 0 ml # Voids 1 # Bowel Movements 5 PHYSICAL EXAM Physical Exam ENERAL: no acute distress. HEENT: Normocephalic, atraumatic and anicteric. Oral mucosa moist. NECK: Supple. LUNGS: Clear bilaterally. Non labored HEART: S1, S2. No murmurs. ABDOMEN: Soft, nontender, and nondistended. EXTRM: Lt AVF , No Bruit/Thrill today (02/12/21) ; Rt BKA NEURO: Alert and oriented x 3, grossly nonfocal. DIAGNOSIS/ASSESSMENT Assessment & Plan ESRD on HD TTS @ [facility] ,seen during dialysis , tolerating well, continue as ordered , [address] [place] Access AVF - No bruit Thrill on 02/12 . S/p Fistulogram 02/13- High- grade cephalic arch stenosis successfully treated with balloon angioplasty. Recently started on PD as well but had to switch to HD 2/2 Fluid retention . PD catheter flushed on 02/13 . Avoid PICC /Mid line Anemia - Continue ANNIA Gangrene right 5th toe/lateral foot and right heel - S/P Ray amputation of the right fifth toe including the metatarsal head. Rt BKA 02/08 -. Post procedure hypotensive - in ICU since HTN - Hypotensive since BKA requiring pressor support . Resolved DM per primary DC per primary COMMENT/RELEVANT DATA Meds Current Medications Medications (Trade) Dose Ordered Sig/Michelle Start Time Stop Time Status Last Admin Dose Admin Acetaminophen (Tylenol) 650 mg PRN Q6HRS PRN 02/03/21 13:30 Albumin Human 100 ml @ 100 mls/hr 1X PRN PRN 02/10/21 15:00 02/10/21 15:25 100 MLS/HR Allopurinol (Zyloprim) 100 mg DAILY 02/03/21 14:00 02/14/21 09:49 100 MG Amlodipine Besylate (Norvasc) 5 mg DAILY 02/03/21 14:00 02/12/21 15:35 DC 02/12/21 08:24 5 MG Anastrozole (Arimidex) 1 mg DAILY 02/03/21 14:00 02/14/21 09:50 1 MG Aspirin (Ecotrin) 81 mg DAILY 02/04/21 09:00 02/14/21 09:49 81 MG Atorvastatin Calcium (Lipitor) 80 mg HS 02/03/21 21:00 02/14/21 21:15 80 MG Calcium Carbonate/ Glycine (Oscal) 750 mg BIDWMEALS 02/03/21 17:00 02/14/21 18:45 750 MG Cefazolin Sodium 1 gm/Sodium Chloride 500 ml @ 500 mls/hr 1X ONCE 02/08/21 06:00 02/08/21 06:59 DC 02/08/21 12:35 Cefepime HCl (Maxipime) 3 gm QSA 02/10/21 16:00 02/13/21 14:19 DC 02/10/21 18:38 3 GM Clopidogrel Bisulfate (Plavix) 75 mg DAILY 02/04/21 09:00 02/14/21 09:49 75 MG Desflurane (Suprane) 30 ml STK-MED ONCE 02/02/21 15:09 02/02/21 15:10 DC Dexamethasone Sodium Phosphate (Decadron) 4 mg STK-MED ONCE 02/02/21 15:09 02/02/21 15:09 DC Dextrose (Dextrose 50%-Water Syringe) 12.5 gm PRN Q15MIN PRN 02/09/21 18:45 Ephedrine Sulfate (ePHEDrine PF IN SALINE SYRINGE) 50 mg STK-MED ONCE 02/02/21 15:00 02/02/21 15:00 DC Epoetin Galileo-epbx (RETACRIT for ESRD PTS) 10,000 unit MoWeFr@2100 02/02/21 21:00 02/14/21 21:31 10,000 UNIT Fentanyl Citrate (Fentanyl 2ml Vial) 50 mcg 1X ONCE 02/13/21 09:45 02/13/21 09:52 DC 02/13/21 09:45 50 MCG Ferrous Sulfate (Feosol) 325 mg DAILYWBKFT 02/03/21 14:00 02/14/21 09:49 325 MG Fludrocortisone Acetate (Florinef) 0.1 mg DAILY 02/07/21 13:30 02/14/21 09:50 0.1 MG Furosemide (Lasix) 80 mg DAILY 02/03/21 14:00 02/14/21 09:49 80 MG Heparin Sodium (Porcine) (Heparin Sodium) 5,000 unit Q8HRS 02/15/21 14:00 Heparin Sodium/ Sodium Chloride (HEPARIN for ARTERIAL LINE FLUSH) 1,000 unit 1X ONCE 02/13/21 09:45 02/13/21 09:52 DC 02/13/21 09:42 1,000 UNIT Hydromorphone HCl (Dilaudid) 0.5 mg PRN Q10MIN PRN 02/08/21 06:00 02/09/21 05:59 DC Info (CONTRAST GIVEN -- Rx MONITORING) 1 each PRN DAILY PRN 02/07/21 08:45 02/09/21 08:44 DC Info (PHARMACY MONITORING -- do not chart) 1 each PRN DAILY PRN 02/15/21 06:45 02/15/21 06:42 DC Insulin Glargine (Lantus Syringe) 10 unit QHS 02/03/21 21:00 02/06/21 07:54 DC 02/04/21 22:36 10 UNIT Insulin Human Lispro (HumaLOG) 0-7 UNITS TIDWMEALS 02/10/21 08:00 02/10/21 18:41 3 UNITS Insulin Human Regular (HumuLIN R VIAL) 100 unit TIDAC 02/03/21 16:30 02/03/21 13:32 DC Iodixanol (Visipaque 320) 30 ml 1X ONCE 02/13/21 09:45 02/13/21 09:52 DC 02/13/21 09:42 30 ML Lactobacillus Rhamnosus (Culturelle) 1 cap BID 02/05/21 12:00 02/14/21 21:15 1 CAP Latanoprost (Xalatan) 1 drop QHS 02/03/21 21:00 02/14/21 21:16 1 DROP Levothyroxine Sodium (Synthroid) 200 mcg DAILY06 02/03/21 14:00 02/15/21 06:38 200 MCG Lidocaine HCl (Buffered Lidocaine 1%) 2 ml 1X ONCE 02/13/21 09:45 02/13/21 09:52 DC 02/13/21 09:42 2 ML Lidocaine HCl (Lidocaine 1% 20ml Vial) 20 ml 1X ONCE 02/07/21 08:30 02/07/21 08:31 DC 02/07/21 09:25 16 ML Lidocaine HCl (Lidocaine Pf 2% Vial) 5 ml STK-MED ONCE 02/08/21 09:37 02/08/21 09:37 DC Lidocaine/ Prilocaine (Emla) 1 pallavi 1X PRN ONCE 02/10/21 09:15 02/10/21 09:33 DC 02/10/21 14:11 1 PALLAVI Lisinopril (Prinivil) 20 mg DAILY 02/03/21 14:00 02/12/21 15:35 DC 02/12/21 08:23 20 MG Methocarbamol (Robaxin) 500 mg PRN Q8HRS PRN 02/03/21 13:30 02/06/21 07:54 DC Midazolam HCl (Versed) 1 mg 1X ONCE 02/13/21 09:45 02/13/21 09:52 DC 02/13/21 09:44 1 MG Midodrine (Proamatine) 5 mg PRN DAILY PRN 02/06/21 08:15 02/09/21 06:45 5 MG Morphine Sulfate (Morphine Sulfate) 1 mg PRN Q10MIN PRN 02/08/21 06:00 02/09/21 05:59 DC Multivitamins (Thera M Plus) 1 tab DAILY 02/07/21 14:00 02/14/21 09:49 1 TAB Nitroglycerin (Nitroglycerin) 200 mcg STK-MED ONCE 02/07/21 08:44 02/07/21 08:44 DC Non-Formulary Medication (Amlodipine Besylate/ Benazepril (Amlodipine-Benazepril 5-20 Mg)) 1 cap DAILY 02/04/21 09:00 UNV Non-Formulary Medication (Omeprazole Magnesium (Prilosec Otc)) 1 tab DAILY 02/04/21 09:00 UNV Non-Formulary Medication (Pregabalin (Lyrica)) 150 mg Q3DAYS 02/06/21 09:00 UNV Norepinephrine Bitartrate 8 mg/ Dextrose 258 ml @ 20.472 mls/ hr CONT PRN 02/09/21 03:15 02/12/21 09:51 DC 02/10/21 02:46 20.472 MLS/HR Nystatin (Nystop) 1 pallavi BID 02/13/21 21:00 02/14/21 21:00 1 PALLAVI Ondansetron HCl (Zofran Odt) 4 mg Q6HRS PRN 02/03/21 13:45 02/11/21 07:49 4 MG Ondansetron HCl (Zofran) 4 mg 1X ONCE 02/13/21 09:45 02/13/21 09:52 DC 02/13/21 09:43 4 MG Oxycodone HCl (Roxicodone) 5 mg PRN Q6HRS PRN 02/03/21 14:15 UNV Oxycodone/ Acetaminophen (Percocet 5/325) 2 tab PRN Q4HRS PRN 02/07/21 11:45 02/13/21 11:16 2 TAB Pantoprazole Sodium (Protonix) 40 mg DAILYAC 02/03/21 14:00 02/14/21 06:50 40 MG Phenylephrine HCl (Elvis-Synephrine Inj) 10 mg STK-MED ONCE 02/08/21 10:14 02/08/21 10:14 DC Phenylephrine HCl (PHENYLEPHRINE in 0.9% NACL PF) 1 mg STK-MED ONCE 02/08/21 09:37 02/08/21 09:37 DC Phenylephrine HCl 50 mg/Sodium Chloride 255 ml @ 16.187 mls/ hr CONT PRN 02/10/21 14:30 Cancel Piperacillin Sod/ Tazobactam Sod 2.25 gm/Sodium Chloride 50 ml @ 100 mls/hr Q8HRS 02/02/21 09:00 02/05/21 15:15 DC 02/05/21 05:53 100 MLS/HR Piperacillin Sod/ Tazobactam Sod 4.5 gm/Sodium Chloride 100 ml @ 200 mls/hr 1X ONCE 02/01/21 17:45 02/01/21 18:14 DC 02/01/21 18:10 200 MLS/HR Polyethylene Glycol (miraLAX PACKET) 17 gm PRN DAILY PRN 02/03/21 13:30 02/11/21 02:43 17 GM Pramipexole Dihydrochloride (miraPEX) 0.25 mg DAILY 02/04/21 09:00 UNV Prochlorperazine Edisylate (Compazine) 5 mg PACU PRN PRN 02/08/21 06:00 02/09/21 05:59 DC Propofol (Diprivan) 200 mg STK-MED ONCE 02/08/21 09:37 02/08/21 09:37 DC Protamine Sulfate (Protamine) 50 mg 1X ONCE 02/07/21 11:15 02/07/21 11:17 DC 02/07/21 11:12 50 MG Ringer's Solution 1,000 ml @ 30 mls/hr Q24H 02/08/21 06:00 02/08/21 17:59 DC Senna/Docusate Sodium (Senna Plus) 1 tab DAILY 02/03/21 14:00 02/14/21 09:48 1 TAB Sennosides (Senna) 8.6 mg PRN BID PRN 02/03/21 13:30 02/03/21 15:58 8.6 MG Sevoflurane (Ultane) 30 ml STK-MED ONCE 02/02/21 15:09 02/02/21 15:10 DC Sodium Bicarbonate (Sodium Bicarbonate) 650 mg TID 02/03/21 14:00 02/14/21 21:15 650 MG Sodium Chloride 1,000 ml @ 400 mls/hr Q2H30M PRN 02/15/21 06:45 02/15/21 18:44 Vancomycin HCl (Vanco Per Pharmacy) 1 each PRN DAILY PRN 02/02/21 08:30 02/13/21 14:19 DC 02/13/21 09:34 1 EACH Vancomycin HCl (Vancomycin Random Level) 1 each 1X ONCE 02/03/21 05:00 02/03/21 05:01 DC Vancomycin HCl (Vancomycin Trough Level) 1 each 1X ONCE 02/13/21 05:00 02/13/21 05:01 DC 02/13/21 05:00 1 EACH Vancomycin HCl 500 mg/Sodium Chloride 100 ml @ 100 mls/hr QTUTHSA 02/06/21 16:00 02/13/21 14:19 DC 02/10/21 18:42 100 MLS/HR Vancomycin HCl 1 gm/Sodium Chloride 250 ml @ 250 mls/hr 1X ONCE 02/03/21 16:00 02/03/21 16:59 DC 02/03/21 16:55 250 MLS/HR Vasopressin (Vasostrict) 20 unit STK-MED ONCE 02/08/21 11:24 02/08/21 11:24 DC Lab Laboratory Tests Test 02/14/21 16:33 02/14/21 20:23 02/15/21 06:20 Glucose (Fingerstick) 152 mg/dL (70-99) 104 mg/dL (70-99) White Blood Count 9.3 x10^3/uL (4.0-11.0) Red Blood Count 3.21 x10^6/uL (3.50-5.40) Hemoglobin 9.7 g/dL (12.0-15.5) Hematocrit 31.5 % (36.0-47.0) Mean Corpuscular Volume 98 fL (79-100) Mean Corpuscular Hemoglobin 30 pg (25-35) Mean Corpuscular Hemoglobin Concent 31 g/dL (31-37) Red Cell Distribution Width 18.2 % (11.5-14.5) Platelet Count 200 x10^3/uL (140-400) Neutrophils (%) (Auto) 85 % (31-73) Lymphocytes (%) (Auto) 7 % (24-48) Monocytes (%) (Auto) 6 % (0-9) Eosinophils (%) (Auto) 1 % (0-3) Basophils (%) (Auto) 1 % (0-3) Neutrophils # (Auto) 7.9 x10^3/uL (1.8-7.7) Lymphocytes # (Auto) 0.7 x10^3/uL (1.0-4.8) Monocytes # (Auto) 0.5 x10^3/uL (0.0-1.1) Eosinophils # (Auto) 0.1 x10^3/uL (0.0-0.7) Basophils # (Auto) 0.1 x10^3/uL (0.0-0.2) Sodium Level 139 mmol/L (136-145) Potassium Level 4.2 mmol/L (3.5-5.1) Chloride Level 101 mmol/L (98-107) Carbon Dioxide Level 26 mmol/L (21-32) Anion Gap 12 (6-14) Blood Urea Nitrogen 26 mg/dL (7-20) Creatinine 5.0 mg/dL (0.6-1.0) Estimated GFR (Cockcroft-Gault) 8.7 Glucose Level 95 mg/dL (70-99) Calcium Level 8.3 mg/dL (8.5-10.1) Results All relevant outside records, renal labs, imaging studies, telemetry/EKG's were reviewed. Justicifation of Admission Dx: Justifications for Admission: Justification of Admission Dx: Yes DAVID BOWMAN MD Feb 15, 2021 11:52
[2021-02-15] MEDS ORDERED: HEPARIN for SUB-Q USE 5,000 UNIT/ML VIAL. SQ SCH (14:00)
[2021-02-15] MEDS: ASPIRIN ENTERIC COATED 81 MG TABLET.DR. PO SCH (14:10)
[2021-02-15] MEDS: FLUDROCORTISONE 0.1 MG TABLET PO SCH (14:10)
[2021-02-15] MEDS: SENNOSIDES/DOCUSATE 8.6/50MG TABLET. PO SCH (14:10)
[2021-02-15] MEDS: ALLOPURINOL 100 MG TABLET. PO SCH (14:11)
[2021-02-15] MEDS: CLOPIDOGREL BISULFATE 75 MG TABLET PO SCH (14:11)
[2021-02-15] MEDS: ANASTROZOLE 1 MG TABLET PO SCH (14:12)
[2021-02-15] MEDS: PRAMIPEXOLE 0.25 MG TABLET. PO SCH (14:12)
[2021-02-15] MEDS: FUROSEMIDE 80 MG TABLET. PO SCH (14:13)
[2021-02-15 14:20] VITALS: BP 87/51
--- NOTE | 2021-02-16 08:40 | DS ---
DATE OF DISCHARGE: 02/15/2021 ADMITTING DIAGNOSIS: Diabetic foot wound. DISCHARGE DIAGNOSES: Postoperative right [id number] amputation. CONSULTS: Dr. Rodríguez, Dr. Griggs, Dr. Paredes, Dr. Mejia of Infectious Disease. HOSPITAL COURSE: The patient is a pleasant, middle-aged female who presented with acute on chronic diabetic foot ulcer. She is a dialysis patient, has multiple comorbidities. Basically, we admitted the patient. The above consults were obtained. She had to be taken for a below-knee amputation. Postoperatively, she did well. Yesterday, I saw and examined her. She was doing well. We discharged to senior care. DISPOSITION: [facility]. ACTIVITY: As tolerated. DIET: Low sodium. DISCHARGE MEDICATIONS: Please see the MRAD. P.r.n. Tylenol, allopurinol 100 a day, amlodipine/benazepril 5/20 one a day, Arimidex 1 a day, aspirin 81 a day, atorvastatin 80 a day, vitamins, Plavix 75 a day, iron 325 a day, Lasix 80 a day, insulin (Lantus 10 units at bedtime and NovoLog sliding scale), Synthroid 200 a day, methocarbamol 500 p.r.n. q. 8 hours, midodrine 2.5 a day, omeprazole 20 a day, p.r.n. Zofran, oxycodone 5 q.4 hours p.r.n., Protonix 40 a day, MiraLax, Mirapex, pregabalin 150 q. 3 days, senna, sodium bicarbonate 650 t.i.d., Travatan eyedrops. Total time of 34 minutes. YANETH/SARIKA DR: YANETH/breezy TID: [id number]
--- NOTE | 2021-02-16 09:16 | PATHOLOGY ---
[facility] Accession Number: [id number] . 01 Material submitted: . leg - RIGHT LOWER EXTREMITY. Modifiers: right, lower . 01 Clinical history: . R BKA FOOT INFECTION, R LEG INF . 02 Diagnosis: Right below knee amputation: - Status post right fifth toe amputation. - Gangrenous necrosis and deep seated acute cellulitis of prior amputation site and lateral foot, with focal underlying acute osteomyelitis. - Gangrenous necrosis and acute cellulitis of calcaneal region with focal underlying acute osteomyelitis. - Gangrenous necrosis and acute cellulitis of medial lower houser. - Focal marked calcific changes of tibial arteries, and focal organizing thrombosis of tibial vein. (JPM:filippo; 02/15/2021) MBR 02/16/2021 0843 Local . 02 Electronically signed: . Shamar Zamora MD, Pathologist NPI- [id number] . 01 Gross description: . The specimen is received fresh in a red biohazard bag with no patient information. The patient name is verified as "Lilliana Ruelas" and the site is verified as "right lower extremity" per Dr. Zamora. Received is a right rmbye-bwz-kuzg amputation measuring 21.9 cm from heel to toe, 17.7 cm from heel to skin margin, 31.8 cm from heel to fibular bone margin, and 31.9 cm from heel to tibial bone margin. The bone margins are blunt in appearance, consistent with transection, and appear grossly unremarkable. The skin and soft tissue margins appear viable. Toes 1 through 4 are present, and toe 5 has been previously amputated. Along the lateral aspect of the foot, at the previous amputation site of toe 5, there is an ill-defined and light jose to brown-black necrotic-appearing lesion measuring 7.1 x 3.3 cm, with exposed underlying bone. Overlying the calcaneus, there is a second lesion which is ill-defined, brown-black and slightly necrotic in appearance, measuring 6.4 x 3.8 cm. On the medial aspect of the lower houser, there is a third ill-defined, lopez-jose to brown-like lesion measuring 6.4 x 4.1 cm, which is the closest lesion to the skin margin (4.2 cm). Sectioning through the anterior and posterior tibial vasculatures reveals pinpoint to patent lumens with a slight amount of calcification. The specimen is submitted representatively as follows: . A1 skin and soft tissue margin A2 small business sales representative section of lesion with underlying bone on lateral aspect of foot, following decalcification A3-A4 small business sales representative section of lesion with underlying bone overlying calcaneus, following decalcification A5 small business sales representative section of lesion on medial aspect of lower houser with underlying bone, following decalcification A6 anterior and posterior tibial vasculature margins. (CAA; 02/12/2021) QAC/QAC 02/12/2021 09 Local . 02 Pathologist provided ICD-10: M86.171, I96, L03.115, I82.441 . 02 CPT . 951760, [id number] Specimen Comment: A courtesy copy of this report has been sent to [phone], [phone] Specimen Comment: [phone], , Specimen Comment: Report sent to , DR OSEI, DR HAMM / Specimen Comment: DR ROD Performed at: 01 [facility] [address], [place] [id number] MD Timi Sullivan MD Phone: [phone] Performed at: 02 [facility] [address], [place] [id number] MD Shamar Zamora MD Phone: [phone]
== END 2021-02-15 14:45 | DRG 853 ==
LOC: ER 17:17 → 4 NORTH 19:25 → 1 WEST ICU 02-08 10:51 → 6 SOUTH 02-12 07:31
PROVIDERS: ADMIT Student in an Organized Health Care Education/Training Program; ATTEND Student in an Organized Health Care Education/Training Program
PROC: 5A1D70Z Performance of Urinary Filtration, Intermittent, Less than 6 Hours Per Day (ICD-10-PCS; 2021-02-03)
PROC: B51W1ZZ Fluoroscopy of Dialysis Shunt/Fistula using Low Osmolar Contrast (ICD-10-PCS; 2021-02-06)
PROC: 047K3ZZ Dilation of Right Femoral Artery, Percutaneous Approach (ICD-10-PCS; 2021-02-07)
PROC: 30233N1 Transfusion of Nonautologous Red Blood Cells into Peripheral Vein, Percutaneous Approach (ICD-10-PCS; 2021-02-08)
PROC: 5A1D70Z Performance of Urinary Filtration, Intermittent, Less than 6 Hours Per Day (ICD-10-PCS; 2021-02-08)
PROC: 0Y6H0Z3 Detachment at Right Lower Leg, Low, Open Approach (ICD-10-PCS; principal; 2021-02-08 10:30)
PROC: 5A1D70Z Performance of Urinary Filtration, Intermittent, Less than 6 Hours Per Day (ICD-10-PCS; 2021-02-10)
PROC: 057F3ZZ Dilation of Left Cephalic Vein, Percutaneous Approach (ICD-10-PCS; 2021-02-13)
PROC: 5A1D70Z Performance of Urinary Filtration, Intermittent, Less than 6 Hours Per Day (ICD-10-PCS; 2021-02-13)
PROC: 5A1D70Z Performance of Urinary Filtration, Intermittent, Less than 6 Hours Per Day (ICD-10-PCS; 2021-02-13)
PROC: 5A1D70Z Performance of Urinary Filtration, Intermittent, Less than 6 Hours Per Day (ICD-10-PCS; 2021-02-15)
DX: A41.9 Sepsis, unspecified organism (principal); N18.6 End stage renal disease; R65.21 Severe sepsis with septic shock; E11.52 Type 2 diabetes mellitus with diabetic peripheral angiopathy with gangrene; E46 Unspecified protein-calorie malnutrition; I13.2 Hypertensive heart and chronic kidney disease with heart failure and with stage 5 chronic kidney disease, or end stage renal disease; I25.810 Atherosclerosis of coronary artery bypass graft(s) without angina pectoris; I42.9 Cardiomyopathy, unspecified; I70.261 Atherosclerosis of native arteries of extremities with gangrene, right leg; L97.419 Non-pressure chronic ulcer of right heel and midfoot with unspecified severity; M86.172 Other acute osteomyelitis, left ankle and foot; N17.9 Acute kidney failure, unspecified; E11.621 Type 2 diabetes mellitus with foot ulcer; D64.9 Anemia, unspecified; E03.9 Hypothyroidism, unspecified; E11.22 Type 2 diabetes mellitus with diabetic chronic kidney disease; E11.42 Type 2 diabetes mellitus with diabetic polyneuropathy; E11.69 Type 2 diabetes mellitus with other specified complication; E78.5 Hyperlipidemia, unspecified; G25.81 Restless legs syndrome; I25.10 Atherosclerotic heart disease of native coronary artery without angina pectoris; I49.3 Ventricular premature depolarization; I50.9 Heart failure, unspecified; L08.9 Local infection of the skin and subcutaneous tissue, unspecified; L97.509 Non-pressure chronic ulcer of other part of unspecified foot with unspecified severity; M10.9 Gout, unspecified; M19.90 Unspecified osteoarthritis, unspecified site; T50.905A Adverse effect of unspecified drugs, medicaments and biological substances, initial encounter; Z20.822 Contact with and (suspected) exposure to COVID-19; Z79.02 Long term (current) use of antithrombotics/antiplatelets; Z83.3 Family history of diabetes mellitus; Z85.3 Personal history of malignant neoplasm of breast; Z87.891 Personal history of nicotine dependence; Z92.3 Personal history of irradiation; Z98.84 Bariatric surgery status; Z99.2 Dependence on renal dialysis; Z95.1 Presence of aortocoronary bypass graft; Z88.8 Allergy status to other drugs, medicaments and biological substances; Y92.89 Other specified places as the place of occurrence of the external cause; Z68.21 Body mass index [BMI] 21.0-21.9, adult; E11.649 Type 2 diabetes mellitus with hypoglycemia without coma; Z79.4 Long term (current) use of insulin
CPT/HCPCS: 36415; 36430; 36902; 37224; 73630; 75710; 76937; 80048; 80053; 80069; 80202; 82040; 82962; 83605; 84145; 85007; 85025; 85027; 85347; 86704; 86850; 86900; 86901; 86920; 87040; 87340; 87426; 88307; 88311; 93308; 93923; 93971; 96365; 96367; 96375; 99152; 99153; A4223; A4930; A6223; A6253; A6402; A6443; A6450; A6455; C1751; C1892; C1894; J0690; J0692; J1100; J1644; J1815; J2250; J2370; J2405; J2543; J2704; J2720; J3010; J3370; J3490; J7030; J7040; J7050; J7060; P9016; P9046; Q9967; U0003; U0005; 97110-GP; 97530-GO; 97530-GP; 97535-GO; 99285-25; G0378